=== PATIENT | female | born 1950 | race Caucasian/White ===

== ENCOUNTER 2020-01-21 16:41 | Inpatient (IN) | payer MEDICARE, SELFPAY ==
[2020-01-21] VITALS (7 sets, daily range): BP systolic 132–151; BP diastolic 60–84; PULSE 110–122; RESP 16–20; TEMP 36.3–37.4; O2SAT 95–96; BMI 32.3
--- NOTE | ~2020-01-21 | XR_ITS ---
EXAMINATION: XR chest 2V DATE: 01/21/2020 18:43 INDICATION: Shortness of breath and cough TECHNIQUE: AP and lateral views of the chest are obtained. COMPARISON: 12/30/2018; CT, 11/26/2019 FINDINGS: A left subclavian Port-A-Cath ends with its tip in the distal superior vena cava. There is a stable right perihilar mass. Changes of right upper lobectomy are noted with associated volume loss in the right hemithorax. No acute airspace opacities are identified. The heart size is normal. There is mild thoracic spondylosis. The gallbladder is surgically absent. IMPRESSION: 1. No acute cardiopulmonary abnormality. 2. Changes of right partial pneumonectomy and treatment change in the right perihilar and right lung apex regions. Reviewed, dictated and finalized at location A. IMPRESSION: 1. No acute cardiopulmonary abnormality. 2. Changes of right partial pneumonectomy and treatment change in the right per ihilar and right lung apex regions.
--- NOTE | ~2020-01-21 | CT_ITS ---
EXAMINATION: CTA chest PE protocol DATE: 01/21/2020 19:17 INDICATION: Cough and shortness of breath TECHNIQUE: Computed tomography angiography (CTA) of the chest was performed with 100 mL Omnipaque-350 intravenous contrast timed to evaluate the pulmonary arteries. Coronal maximum intensity projection 3D-reconstructions were created by the technologist. The dose-length product (DLP) was 320.55 mGy-cm. Automated exposure control and iterative reconstruction technique were employed. COMPARISON: 11/26/2019 FINDINGS: The pulmonary arteries are well-opacified. No pulmonary embolism is identified. There are c hanges of left partial pneumonectomy. There are unchanged opacities in the right perihilar region and posterior/upper paramediastinal region. There are patchy airspace opacities of the right lower lobe. The left lung is clear. A left subclavian Port-A-Cath ends with its tip in the distal superior vena cava. The heart size is normal. No pathologically enlarged thoracic lymph nodes are identified. The g allbladder is surgically absent. IMPRESSION: 1. No pulmonary embolism. 2. Patchy opacities of the right lung, likely infectious or inflammatory. 3. Chronic right perihilar and right upper paramediastinal soft tissue density, consistent with treat ment change. Reviewed, dictated and finalized at location A. IMPRESSION: 1. No pulmonary embolism. 2. Patchy opacities of the right lung, likely infectious or inflammatory. 3. Chronic right perihilar and right upper paramediastinal soft tissue density, consistent with treatment change.
--- NOTE | 2020-01-21 16:59 | ED.SOB ---
HPI - SOB/Dyspnea General Chief Complaint: Shortness of Breath/Dyspnea Stated Complaint: WEAKNESS Time Seen by Provider: 01/21/20 16:45 Source: patient and RN notes reviewed Mode of arrival: EMS Limitations: no limitations History of Present Illness HPI Narrative: Pt is a 69 y/o female with a Hx of COPD and lung cancer, who presents to the ED via EMS with c/o SOB starting earlier today. She notes that she has had a worsening cough over the past several weeks. Pt states that her cough was initially productive, but notes that she isn't currently producing any phlegm. She states that she developed SOB and rhinorrhea earlier today. Pt also reports wheezing, but denies any fever, nausea, vomiting, or chest pain. She notes that she hasn't had any recent travel or been around any sick contacts. Pt states that she has previously underwent radiation treatments and chemotherapy for her lung cancer, but notes that she has been advised she has no signs of cancer currently. MD elicited complaint: shortness of breath Pertinent past history: COPD and other (lung cancer) Onset (ago): day(s) (1) Known history of: COPD and other (lung cancer) Associated symptoms: cough, wheezing and other (rhinorrhea) Related Data Home Medications Medication Instructions Recorded Confirmed acetaminophen 500 mg PO Q4H PRN 09/23/19 01/21/20 baclofen 10 mg PO TID 09/23/19 01/21/20 calcium carbonate-vitamin D3 1 tablet PO BID 09/23/19 01/21/20 [Calcium 500 + D (D3)] lidocaine HCl [Aspercreme 4 % TOPICAL PRN PRN 09/23/19 01/21/20 (lidocaine)] light mineral oil-mineral oil 1 drp OPHTHALMIC (EYE) DAILY PRN 09/23/19 01/21/20 [Soothe XP] lisinopril-hydrochlorothiazide 1 tablet PO HS 09/23/19 01/21/20 metformin 500 mg PO BID 09/23/19 01/21/20 omeprazole 40 mg PO DAILY 09/23/19 01/21/20 pravastatin 40 mg PO HS 09/23/19 01/21/20 vitamin B complex 1 cap PO BID 09/23/19 01/21/20 allopurinol 100 mg PO BID 01/21/20 01/21/20 apixaban [Eliquis] 5 mg PO BID 01/21/20 01/21/20 [id number] 1 inh INHALATION DAILY 01/21/20 01/21/20 [Trelegy Ellipta] Allergies Allergy/AdvReac Type Severity Reaction Status Date / Time diclofenac Allergy Severe sob Verified 11/26/19 11:04 Penicillins Allergy Intermediate Itching Verified 11/26/19 11:04 Review of Systems Review of Systems: All systems reviewed & are unremarkable except as noted in HPI and below Constitutional: Constitutional: Denies fever(s) ENT: Reports nasal discharge Cardiovascular: Cardiovascular: Denies chest pain Respiratory: Respiratory: Reports cough, Reports dyspnea and Reports wheezing Gastrointestinal: Gastrointestinal: Denies nausea and Denies vomiting PMFSH Past Medical History Medical History Anemia Angina at rest Arthritis Cancer lung and lymphnodes 2012 and 2014 COPD (chronic obstructive pulmonary disease) uses inhaler, right upper lobe removed lung cancer 2012;lower lobe and lymphnodes 2014 CVA (cerebral vascular accident) 06/2018 TPA administered and rehab-pt states now no residual effect Diabetes last A1C=5.6 DVT (deep venous thrombosis) GERD (gastroesophageal reflux disease) Hemorrhoids History of chemotherapy HTN (hypertension) Hx of adenomatous colonic polyps Hx of pulmonary embolus Hx of radiation therapy Hypercholesterolemia Lung cancer Neutropenia Obesity Peripheral neuropathy Port-A-Cath in place Rectal polyp Shingles Sleep apnea Surgical History Surgical History History of dilatation and curettage History of endoscopy History of esophagogastroduodenoscopy (EGD) History of lobectomy of lung History of removal of Port-a-Cath History of right knee joint replacement 2014 History of total right knee replacement (TKR) Hx of cholecystectomy Hx of colonoscopy Hx of tonsillectomy Hx of total hysterectomy Family History Family History (Updated
--- NOTE | 2020-01-21 17:04 | ECG_ITS ---
Measurements Intervals [place] Rate: 120 P: 44 W[place]: 169 QRS: 3 QRSD: 86 T: 48 QT: 313 QTc: 444 Interpretive Statements SINUS TACHYCARDIA BASELINE ARTIFACT- I, II, III, AVR, AVL, AVF, V1 ABNORMAL ECG Electronically Signed On 01-22-2020 7:08:39 CDT by Simon Olivares D.O.
[2020-01-21] MEDS: LACTATED RINGERS 1,000 ML 999 ML IV CONT ×2 (17:12→19:45)
[2020-01-21] MEDS: methylPREDNISolone SOD SUCC 125 MG VIAL IV PUSH (17:13)
[2020-01-21 17:26] LABS: Alveolar/Arterial O2 Gradient 33.9 mmHg; Carboxyhemoglobin 0.9 % THb (0-2.0); Fractional Inspired Oxygen 21 %; Methemoglobin ABG 0.1 %THb (0-1.5); Oxygen Content ABG 17.1 %vol (16.0-22.0); Oxyhemoglobin 94.2 % THb (90.0-100.0); PCO2 ABG 35.9 mmHg (35.0-45.0); PO2 ABG 72.8 mmHg (80.0-100.0); PO2 FiO2 Ratio Arterial Blood 3.47 %; Reduced Hemoglobin 4.8 %THb (0-5.0); Total Hemoglobin 12.9 g/dL (12.0-18.0)
[2020-01-21 17:27] LABS: Site Drawn RIGHT RADIAL
[2020-01-21 17:28] LABS: Device ROOM AIR; Modified Allen's Test Pass
[2020-01-21] MEDS: ALBUTEROL SULFATE NEB 2.5 MG/0.5 ML INH 5 MG INHALATION (17:28)
[2020-01-21] MEDS: IPRATROPIUM BR 0.02% INH SOLN 0.5 MG/2.5 ML VIAL INHALATION (17:29)
[2020-01-21 17:46] LABS: Basophils Percent Auto 0.3 % (0.2-1.2); Eosinophils Percent Auto 0.1 % (0-4.4); Hematocrit 35.7 % (37.0-47.0); Hemoglobin 11.5 g/dL (12.0-15.0); Immature Granulocyte Absolute 0.07 K/mm3 (0.00-0.031); Immature Granulocyte Percent A 0.5 % (0-0.5); Lymphocytes Absolute Auto 1.62 K/mm3 (0.9-3.2); Lymphocytes Percent Auto 10.6 % (18.3-44.2); Mean Corpuscular HGB Conc 32.2 g/dl (32-36); Mean Corpuscular Hemoglobin 30.3 pg (26-34); Mean Corpuscular Volume 93.9 fl (80-100); Mean Platelet Volume 9.6 fl (7.4-10.4); Monocytes Absolute Auto 1.2 K/mm3 (0.1-0.6); Monocytes Percent Auto 8.1 % (2.6-8.5); Neutrophils Absolute Auto 12.3 K/mm3 (1.3-6.7); Neutrophils Percent Auto 80.4 % (45.5-73.1); Platelet Count Result 207 k/mm3 (150-375); Red Cell Distribution Width 13.5 % (11.5-14.5); White Blood Count 15.2 K/mm3 (4.5-10.0)
[2020-01-21 17:56] LABS: INR 1.1; Prothrombin Time 14.3 Seconds (11.1-14.7)
[2020-01-21 17:57] LABS: Partial Thromboplastin Time 35.4 SECONDS (22.3-36.8)
[2020-01-21 17:58] LABS: Alanine Aminotransferase 18 U/L (4-35); Albumin Level 4.2 g/dL (3.5-5.1); Alkaline Phosphatase 136 U/L (38-126); Aspartate Amino Transferase 25 U/L (14-36); Bilirubin,Total 0.5 mg/dL (0.2-1.3); Blood Urea Nitrogen 14 mg/dL (7-17); Calcium 9.1 mg/dL (8.4-10.2); Carbon Dioxide 30 mmol/L (22-30); Chloride 97 mmol/L (98-107); Estimated Glomerular Filt Rate > 60; Glucose 130 mg/dL (65-105); Magnesium 1.2 mg/dL (1.6-2.3); Potassium 3.9 mmol/L (3.4-5.0); Sodium 136 mmol/L (137-145)
[2020-01-21 17:59] LABS: Lactic Acid Reflex 1.8 mmol/L (0.7-2.1)
[2020-01-21 18:07] LABS: NT Pro B Type Natriuretic Pept 361 PG/ML (5-100)
--- NOTE | 2020-01-21 21:00 | PM.IMHP ---
H&P: HPI History of Present Illness Chief complaint: sepsis, pneumonia Narrative: This is a pleasant 69 year old female with known history of COPD, lung cancer, and on chronic Eliquis therapy secondary to a recent RLE DVT [facility] with a complaint of sudden onset of shortness of breath this afternoon and inability to get up out of her chair. She has had a dry persistent cough over the past several weeks with associated wheezing and today it seemed like her symptoms worsened. Associated symptoms include sore throat. She denies any fever, chills, headache, chest pain, nausea, vomiting, diarrhea, dysuria, hematuria, diarrhea or rectal bleeding. She has been diagnosed with lung cancer twice which is currently in remission. She was supposed to get a follow up ultrasound of her RLE although she has no worsening symptoms of LE pain, redness, or swelling. She does have a history of a previous pulmonary embolism in the past as well. The patient was evaluated in the ER today and found to be septic with a WBC of 15,200, tachycardia, and tachypnea. Chest CTA demonstrated patchy opacities. The patient was treated with IV fluids and IV antibiotics. She states she lives alone and is too weak to go home. Review of Systems Review of Systems: All systems reviewed & are unremarkable except as noted in HPI and below PMFSH Past Medical History Medical History Anemia Angina at rest Arthritis Cancer lung and lymphnodes 2012 and 2014 COPD (chronic obstructive pulmonary disease) uses inhaler, right upper lobe removed lung cancer 2012;lower lobe and lymphnodes 2014 CVA (cerebral vascular accident) 06/2018 TPA administered and rehab-pt states now no residual effect Diabetes last A1C=5.6 DVT (deep venous thrombosis) GERD (gastroesophageal reflux disease) Hemorrhoids History of chemotherapy HTN (hypertension) Hx of adenomatous colonic polyps Hx of pulmonary embolus Hx of radiation therapy Hypercholesterolemia Lung cancer Neutropenia Obesity Peripheral neuropathy Port-A-Cath in place Rectal polyp Shingles Sleep apnea Surgical History Surgical History History of dilatation and curettage History of endoscopy History of esophagogastroduodenoscopy (EGD) History of lobectomy of lung History of removal of Port-a-Cath History of right knee joint replacement 2014 History of total right knee replacement (TKR) Hx of cholecystectomy Hx of colonoscopy Hx of tonsillectomy Hx of total hysterectomy Family History Family History Mother Carcinoma of colon Cerebrovascular accident Father Family history of heart disease in male family member before age 55 Sibling Family history of hypercholesterolemia Hypertension Glaucoma Other Family history of lung cancer Family history of malignant neoplasm of bone Family history of malignant neoplasm of urinary bladder Social History Social History Smoking packs per day: 1 Smoking cigarettes per day: 20.0 Years smoked: 45 Smoking pack-years: 45.00 Smoking status: Former smoker Tobacco type: cigarettes Second hand tobacco smoke exposure: Yes Smoking end date: 11/05/10 Alcohol intake: never Substance use: never Gender identity (if verbalized by the patient): Female Spiritual care concerns: No Agree to blood products: Yes Meds Home Medications and Allergies Home Medications Medication Instructions Recorded Confirmed Type Aspercreme (lidocaine) 4 % TOPICAL PRN PRN 09/23/19 01/21/20 History Soothe XP 1 drp OPHTHALMIC (EYE) DAILY PRN 09/23/19 01/21/20 History acetaminophen 500 mg PO Q4H PRN 09/23/19 01/21/20 History baclofen 10 mg PO TID 09/23/19 01/21/20 History calcium carbonate-vitamin D3 1 tablet PO BID 09/23/19 01/21/20 History
--- NOTE | 2020-01-21 22:11 | PC.NURSE ---
Patient report faxed to 3rd floor med/surg.
[2020-01-21] MEDS: LACTATED RINGERS 1,000 ML 125 ML IV CONT (22:58)
[2020-01-21 23:07] LABS: Glucose Point of Care 200 (65-105)
--- NOTE | 2020-01-21 23:10 | ADMGEN ---
This patient, Zoe Hogue Dia, was admitted to Medical Room 342-01. Patient/family oriented to hospital policies and general routines including ID bracelet, bed and alarms, visiting hours, pain management, procedures, bathroom and other care routines, personal items, smoking policy, room service/diet, and visiting hours. Valuables list has been completed. Information on how to activate the Rapid Response Team has been discussed. Patient/Family are encouraged to report perceived risks to care and to ask questions if they do not understand what they are told or what they should do.
[2020-01-21 23:28] LABS: Alanine Aminotransferase 20 U/L (4-35); Alkaline Phosphatase 120 U/L (38-126); Aspartate Amino Transferase 25 U/L (14-36); Bilirubin,Total 0.4 mg/dL (0.2-1.3); Blood Urea Nitrogen 13 mg/dL (7-17); Calcium 8.9 mg/dL (8.4-10.2); Carbon Dioxide 30 mmol/L (22-30); Chloride 98 mmol/L (98-107); Estimated CRCL calculation 57 ml/min; Estimated Glomerular Filt Rate > 60; Glucose 199 mg/dL (65-105); Potassium 3.4 mmol/L (3.4-5.0); Sodium 136 mmol/L (137-145)
[2020-01-22] VITALS (10 sets, daily range): BP systolic 116–143; BP diastolic 55–69; PULSE 80–122; RESP 14–20; TEMP 36.2–36.3; O2SAT 96–98
[2020-01-22 06:03] LABS: Basophils Percent Auto 0.2 % (0.2-1.2); Hematocrit 31.7 % (37.0-47.0); Hemoglobin 10.3 g/dL (12.0-15.0); Immature Granulocyte Absolute 0.07 K/mm3 (0.00-0.031); Immature Granulocyte Percent A 0.7 % (0-0.5); Lymphocytes Absolute Auto 0.76 K/mm3 (0.9-3.2); Lymphocytes Percent Auto 7.3 % (18.3-44.2); Mean Corpuscular HGB Conc 32.5 g/dl (32-36); Mean Corpuscular Hemoglobin 30.6 pg (26-34); Mean Corpuscular Volume 94.1 fl (80-100); Mean Platelet Volume 9.7 fl (7.4-10.4); Monocytes Absolute Auto 0.1 K/mm3 (0.1-0.6); Monocytes Percent Auto 1.3 % (2.6-8.5); Neutrophils Absolute Auto 9.4 K/mm3 (1.3-6.7); Neutrophils Percent Auto 90.5 % (45.5-73.1); Platelet Count Result 189 k/mm3 (150-375); Red Blood Count 3.37 M/mm3 (4.2-5.4); Red Cell Distribution Width 13.4 % (11.5-14.5); White Blood Count 10.4 K/mm3 (4.5-10.0)
[2020-01-22 06:12] LABS: Blood Urea Nitrogen 15 mg/dL (7-17); Calcium 8.8 mg/dL (8.4-10.2); Carbon Dioxide 30 mmol/L (22-30); Chloride 101 mmol/L (98-107); Estimated CRCL calculation 57 ml/min; Estimated Glomerular Filt Rate > 60; Glucose 157 mg/dL (65-105); Potassium 3.5 mmol/L (3.4-5.0); Sodium 136 mmol/L (137-145)
[2020-01-22] MEDS: GUAIFENESIN/DEXTROMETHORPHAN 10 ML UDC PO ×4 (06:55→20:52)
[2020-01-22] MEDS: LACTATED RINGERS 1,000 ML 125 ML IV CONT (06:55)
--- NOTE | 2020-01-22 07:07 | PHAR ---
The patient's home med of Takblysfdgq-Wgozwkxzo-Futgvfby [Trelegy Ellipta] has been verified.
[2020-01-22] MEDS: predniSONE 40 MG, predniSONE 10 MG 50 MG PO (10:18)
[2020-01-22] MEDS: APIXABAN 5 MG TABLET PO ×2 (10:19→17:03)
[2020-01-22] MEDS: PANTOPRAZOLE 40 MG TABLET PO (10:19)
[2020-01-22] MEDS: VITAMIN B COMPLEX CAPSULE 1 CAP PO ×2 (10:19→17:02)
[2020-01-22] MEDS: allopurinoL 100 MG TABLET PO ×2 (10:20→17:03)
[2020-01-22] MEDS: metFORMIN HCL 500 MG TABLET PO ×2 (10:20→17:02)
[2020-01-22] MEDS: BACLOFEN 10 MG TABLET PO ×3 (10:22→17:05)
--- NOTE | 2020-01-22 13:21 | PM.IMPN ---
Progress Note: A&P Assessment and Plan (1) Community acquired pneumonia: Qualifiers: Laterality: right Lung location: lower lobe of lung Qualified Code(s): J18.9 - Pneumonia, unspecified organism <Luzmacarlos Alvarez, PA-C - Last Filed: 01/22/20 16:30> Code(s): J18.9 - Pneumonia, unspecified organism <Luzmacarlos Cazaresac, PA-C - Last Filed: 01/22/20 16:30> Status: Acute <Luzma Chuck Stimac, PA-C - Last Filed: 01/22/20 16:30> Assessment and Plan: Chest CT revealing patchy opacities of right lung. Cough x1 month with now decreased sputum production. Patient is afebrile. Sputum culture ordered but unable to collect at this point. Blood cultures ordered and pending. WBC stable at 10.4. Pneumonococcal and Legionella urine antigen pending. She was given a one time solumedrol dose in ED. - Continue IV Levaquin - Discontinue IV fluids as patient is tolerating oral intake - Continue guaifenesin/dextromethorphan for cough <Luzma GraceGino Stimac, PA-C - Last Filed: 01/22/20 16:30> (2) Sepsis: Qualifiers: Sepsis acute organ dysfunction status: without acute organ dysfunction <Luzmacarlos Cazaresdelmis, PA-C - Last Filed: 01/22/20 16:30> Code(s): A41.9 - Sepsis, unspecified organism <Luzma Chuck Stimac, PA-C - Last Filed: 01/22/20 16:30> Status: Acute <Luzma Chuck Stimac, PA-C - Last Filed: 01/22/20 16:30> Assessment and Plan: Patient met SIRS criteria at admission with tachycardia and leukocytosis. Suspected source of infection is pneumonia. Blood cultures pending.WBC 15.2 at admission, decreased to 10.4 today likely explained by pneumonia. Patient now on prednisone which could cause further leukocytosis. - Order lactic acid - Continue IV Levaquin - Stop IV fluids as patient has adequate oral intake and becoming mildly edematous. - Continue to monitor vitals and leukocytosis <Luzma J. Sageac, PA-C - Last Filed: 01/22/20 16:30> (3) Tachycardia: Code(s): R00.0 - Tachycardia, unspecified <Luzma J. Stimac, PA-C - Last Filed: 01/22/20 16:30> Status: Acute <Luzma J. Stimac, PA-C - Last Filed: 01/22/20 16:30> Assessment and Plan: Patient presented with tachycardia in 120s. EKG reveals sinus tach. Chest CT revealed no PE. Still with tachycardia in 100s, but likely explained by pneumonia or steroid use. - Continue to monitor heart rate <Luzma J. Stimac, PA-C - Last Filed: 01/22/20 16:30> (4) COPD (chronic obstructive pulmonary disease): Qualifiers: COPD type: unspecified COPD Qualified Code(s): J44.9 - Chronic obstructive pulmonary disease, unspecified <Luzma J. Stimac, PA-C - Last Filed: 01/22/20 16:30> Code(s): J44.9 - Chronic obstructive pulmonary disease, unspecified <Luzma J. Stimac, PA-C - Last Filed: 01/22/20 16:30> Status: Chronic <Luzma J. Stimac, PA-C - Last Filed: 01/22/20 16:30> Assessment and Plan: Currently experiencing less sputum production. O2 96% on room air. RR 16. - Continue home dose Trelegy Ellipta - Continue nebulized albuterol and levalbuterol prn - Continue PO Prednisone <Luzma J. Stimac, PA-C - Last Filed: 01/22/20 16:30> (5) DVT (deep venous thrombosis): Code(s): I82.409 - Acute embolism and thrombosis of unspecified deep veins of unspecified lower extremity <Luzma J. Stimac, PA-C - Last Filed: 01/22/20 16:30> Status: Acute <Luzma J. Stimac, PA-C - Last Filed: 01/22/20 16:30> Assessment and Plan: Patient found to have right lower extremity DVTon 11/26/19 and was started on Xarelto inititally and switched to Eliquis. She was scheduled for repeat venous doppler with PCP Dr. Duff in late December but unable to keep appt. Both LE are mildly edematous and tender to palpation. Patient has been more immobile recently due to SOB. Patient also has history of PE, unclear whe
[2020-01-22] MEDS: hydroCHLOROthiazide 12.5 MG CAPSULE PO (20:37)
[2020-01-22] MEDS: PRAVASTATIN SODIUM 20 MG TABLET 40 MG PO (20:38)
[2020-01-22] MEDS: lisinopriL 20 MG TABLET PO (20:38)
[2020-01-23] VITALS (13 sets, daily range): BP systolic 132–141; BP diastolic 65–73; PULSE 99–124; RESP 16–18; TEMP 36.3–36.7; O2SAT 95–98
[2020-01-23 05:38] LABS: Hematocrit 30.6 % (37.0-47.0); Hemoglobin 9.8 g/dL (12.0-15.0); Mean Corpuscular Hemoglobin 30.5 pg (26-34); Mean Corpuscular Volume 95.3 fl (80-100); Mean Platelet Volume 9.3 fl (7.4-10.4); Platelet Count Result 186 k/mm3 (150-375); Red Blood Count 3.21 M/mm3 (4.2-5.4); Red Cell Distribution Width 13.7 % (11.5-14.5); White Blood Count 11.3 K/mm3 (4.5-10.0)
[2020-01-23 05:49] LABS: Lactic Acid 2.2 mmol/L (0.7-2.1)
[2020-01-23 05:50] LABS: Blood Urea Nitrogen 17 mg/dL (7-17); Calcium 8.7 mg/dL (8.4-10.2); Carbon Dioxide 32 mmol/L (22-30); Chloride 103 mmol/L (98-107); Estimated CRCL calculation 57 ml/min; Estimated Glomerular Filt Rate > 60; Glucose 108 mg/dL (65-105); Magnesium 1.3 mg/dL (1.6-2.3); Potassium 3.6 mmol/L (3.4-5.0); Sodium 140 mmol/L (137-145)
[2020-01-23] MEDS: PANTOPRAZOLE 40 MG TABLET PO (09:05)
[2020-01-23] MEDS: APIXABAN 5 MG TABLET PO ×2 (09:05→16:31)
[2020-01-23] MEDS: allopurinoL 100 MG TABLET PO ×2 (09:05→16:30)
[2020-01-23] MEDS: VITAMIN B COMPLEX CAPSULE 1 CAP PO ×2 (09:05→16:30)
[2020-01-23] MEDS: predniSONE 40 MG, predniSONE 10 MG 50 MG PO (09:05)
[2020-01-23] MEDS: metFORMIN HCL 500 MG TABLET PO ×2 (09:06→16:31)
[2020-01-23] MEDS: MAGNESIUM OXIDE 400 MG TABLET PO (09:07)
[2020-01-23] MEDS: BACLOFEN 10 MG TABLET PO ×3 (09:11→16:39)
[2020-01-23] MEDS: ACETAMINOPHEN 325 MG TABLET 650 MG PO (12:18)
--- NOTE | 2020-01-23 14:25 | PC.NURSE ---
Called Luzma CALDERA, message was left to cell phone, with results of a critical lactic acid.
[2020-01-23 14:42] LABS: Pneumococcal Antigen Urine Not Detected (Not Detected)
--- NOTE | 2020-01-23 14:56 | PM.IMPN ---
Progress Note: A&P Assessment and Plan (1) Sepsis: Qualifiers: Sepsis acute organ dysfunction status: without acute organ dysfunction <Lumza Alvarez WERNER-C - Last Filed: 01/23/20 18:13> Code(s): A41.9 - Sepsis, unspecified organism <Luzma Alvarez PA-C - Last Filed: 01/23/20 18:13> Status: Acute <Luzma Alvarez WERNER-C - Last Filed: 01/23/20 18:13> Assessment and Plan: Patient meets SIRS criteria with tachycardia and leukocytosis. Suspected source of infection is pneumonia. Blood cultures reveal NGTD. WBC 15.2 at admission, 11.3 today. Lactic acid 2.2 this morning and 5.0 on repeat. Patient taking metformin and xopenex which may be contributing to lactic acidosis. - Continue IV Levaquin - Start IV Normal Saline - Continue to monitor lactic acid. Will stop metformin due to lactic acidosis. - Continue to monitor vitals and leukocytosis <Luzma EdwardsGino Sagedelmis PA-C - Last Filed: 01/23/20 18:13> (2) Community acquired pneumonia: Qualifiers: Laterality: right Lung location: lower lobe of lung Qualified Code(s): J18.9 - Pneumonia, unspecified organism <Luzma Alvarez WERNER-C - Last Filed: 01/23/20 18:13> Code(s): J18.9 - Pneumonia, unspecified organism <Luzma Alvarez PA-C - Last Filed: 01/23/20 18:13> Status: Acute <Luzma Alvarez PA-C - Last Filed: 01/23/20 18:13> Assessment and Plan: Chest CT reveals patchy opacities of right lung. Cough x1 month with now decreased sputum production. Patient remains afebrile. Sputum culture pending. Blood cultures NGTD. Pneumonococcal and Legionella urine antigen negative. She was given a one time solumedrol dose in ED. - Continue IV Levaquin - Resume IV fluids - Continue guaifenesin/dextromethorphan for cough <Luzma JGino Alvarez PA-C - Last Filed: 01/23/20 18:13> (3) Tachycardia: Code(s): R00.0 - Tachycardia, unspecified <Luzma Chuck Alvarez, PA-C - Last Filed: 01/23/20 18:13> Status: Acute <Luzma Chuck Alvarez, PA-C - Last Filed: 01/23/20 18:13> Assessment and Plan: Patient presented with tachycardia in 120s. EKG reveals sinus tach. Chest CT revealed no PE. Patient continues to have tachycardia in the 110s, which may be explained by sepsis, prednisone, or xopenex. - Continue to monitor heart rate - Initiate telemetry <Luzma Alvarez, PA-C - Last Filed: 01/23/20 18:13> (4) COPD (chronic obstructive pulmonary disease): Qualifiers: COPD type: unspecified COPD Qualified Code(s): J44.9 - Chronic obstructive pulmonary disease, unspecified <Luzma Alvarez, PA-C - Last Filed: 01/23/20 18:13> Code(s): J44.9 - Chronic obstructive pulmonary disease, unspecified <Luzmacralos Alvarez, PA-C - Last Filed: 01/23/20 18:13> Status: Chronic <Lumzacarlos Alvarez, PA-C - Last Filed: 01/23/20 18:13> Assessment and Plan: Currently experiencing less sputum production. O2 95% on room air. RR 16. She was given a one time solumedrol dose in ED. - Continue home dose Trelegy Ellipta - Continue nebulized levalbuterol prn - Continue PO Prednisone with taper initiated <Luzma Alvarez PA-C - Last Filed: 01/23/20 18:13> (5) Generalized weakness: Code(s): R53.1 - Weakness <Luzma Alvarez, PA-C - Last Filed: 01/23/20 18:13> Status: Acute <Luzma Alvarez, PA-C - Last Filed: 01/23/20 18:13> Assessment and Plan: Patient reports she has been weak lately, especially in her legs. She has been more sedentary. She ambulates with a cane, is typically independent, and lives alone. She has required more assistance with ambulation since admission. - PT and OT to eval and treat with recommendations appreciated. <Luzma Alvarez PA-C - Last Filed: 01/23/20 18:13> (6) Normocytic anemia: Code(s): D64.9 - Anemia, unspecified <Luzma Alvarez,
[2020-01-23] MEDS: GUAIFENESIN/DEXTROMETHORPHAN 10 ML UDC PO (15:15)
[2020-01-23 15:49] LABS: Legionella pneumophila Ag Ur Not Detected (Not Detected)
[2020-01-23] MEDS: SODIUM CHLORIDE 0.9% IV 1,000 ML 75 ML IV CONT (18:05)
[2020-01-23] MEDS: lisinopriL 20 MG TABLET PO (20:26)
[2020-01-23] MEDS: hydroCHLOROthiazide 12.5 MG CAPSULE PO (20:26)
[2020-01-23] MEDS: PRAVASTATIN SODIUM 20 MG TABLET 40 MG PO (20:26)
[2020-01-24] VITALS (14 sets, daily range): BP systolic 102–141; BP diastolic 50–86; PULSE 94–131; RESP 14–18; TEMP 36.4–36.6; O2SAT 95–99
--- NOTE | 2020-01-24 | ECHO_ITS ---
Patient Info Name: Zoe Dia Age: 69 years : 1950 Gender: Female Ht: 66 in Wt: 200 lbs BSA: 2.09 m2 HR: 114 bpm BP: 136 / 86 mmHg Heart Rhythm: Sinus Rhythm Technical Quality: Fair Exam Date: 01/24/2020 1:50 PM Exam Location: [facility] Patient Status: Inpatient Admit Date: 01/22/2020 Staff Ordering Physician: Luzma Alvarez PA-C Press Operator Assistant: Sarai Barker RDCS Attending Provider: Luzma Alvarez PA-C Referring Physician: Kim LARSEN; Exam Type: CA echo dop color flow w con Study Info Complete two-dimensional, color flow and Doppler transthoracic echocardiogram is performed with contrast to opacify the left ventrical and to improve the deliniation of the left ventrical endocarial boarders. Contrast/Agitated Saline Contrast/Ag. Saline: Definity Amount: 2.00 ml Summary 1. Left ventricular systolic function is normal, estimated at 65-70%. 2. LV was not optimally seen until definity contrast was injected. 3. Right ventricular chamber dimension is mildly enlarged. 4. No significant valvular abnormalities. 5. Compared to examination done in this laboratory in 2016 there is no significant difference. Left Ventricle Left ventricular chamber dimension is normal. Left ventricular systolic function is normal, estimated at 65-70%. The left ventricular diastolic function is normal. LV was not optimally seen until definity contrast was injected. Right Ventricle Right ventricular chamber dimension is mildly enlarged. Left Atria Left atrial chamber dimension is normal. Right Atria Right atrial chamber dimension is normal. Aortic Valve The aortic valve is normal. Pulmonic Valve The pulmonic valve is not well visualized. Mitral Valve The mitral valve has normal leaflets. There is trace mitral valve regurgitation. Tricuspid Valve The tricuspid valve leaflets are normal. Pericardium/Pleural The pericardium appears normal. Aorta The aortic root size at the sinus of Valsalva is normal. Left Ventricular Outflow Tract Name Value Normal LVOT 2D LVOT Diameter 2.01 cm LVOT Doppler LVOT Peak Velocity 104.84 cm/s LVOT Peak Gradient 4 mmHg LVOT Mean Gradient 2 mmHg LVOT VTI 15.69 cm LVOT VTI/AV VTI Ratio 0.87 LVOT Stroke Volume 49.84 ml LVOT CO 10.65 l/min LVOT CI 5.10 L/min/m2 Pulmonic Valve Name Value Normal PV Doppler PV Peak Velocity 159.38 cm/s PV Peak Gradient 10 mmHg Mitral Valve Name Value
[2020-01-24 06:15] LABS: Lactic Acid Reflex 2.1 mmol/L (0.7-2.1)
[2020-01-24 06:21] LABS: Alanine Aminotransferase 24 U/L (4-35); Albumin Level 3.5 g/dL (3.5-5.1); Alkaline Phosphatase 110 U/L (38-126); Aspartate Amino Transferase 29 U/L (14-36); Bilirubin,Total 0.2 mg/dL (0.2-1.3); Blood Urea Nitrogen 18 mg/dL (7-17); Calcium 8.7 mg/dL (8.4-10.2); Carbon Dioxide 34 mmol/L (22-30); Chloride 99 mmol/L (98-107); Estimated CRCL calculation 52 ml/min; Estimated Glomerular Filt Rate 55; Glucose 92 mg/dL (65-105); Magnesium 1.3 mg/dL (1.6-2.3); Potassium 3.3 mmol/L (3.4-5.0); Sodium 140 mmol/L (137-145)
[2020-01-24 06:25] LABS: Basophils Percent Auto 0.2 % (0.2-1.2); Hematocrit 31.9 % (37.0-47.0); Hemoglobin 10.1 g/dL (12.0-15.0); Immature Granulocyte Absolute 0.09 K/mm3 (0.00-0.031); Immature Granulocyte Percent A 0.9 % (0-0.5); Lymphocytes Percent Auto 10.1 % (18.3-44.2); Mean Corpuscular HGB Conc 31.7 g/dl (32-36); Mean Corpuscular Hemoglobin 30.2 pg (26-34); Mean Corpuscular Volume 95.5 fl (80-100); Mean Platelet Volume 9.7 fl (7.4-10.4); Monocytes Absolute Auto 0.8 K/mm3 (0.1-0.6); Monocytes Percent Auto 7.6 % (2.6-8.5); Neutrophils Absolute Auto 8.1 K/mm3 (1.3-6.7); Neutrophils Percent Auto 81.2 % (45.5-73.1); Platelet Count Result 218 k/mm3 (150-375); Red Blood Count 3.34 M/mm3 (4.2-5.4); Red Cell Distribution Width 13.7 % (11.5-14.5); White Blood Count 9.9 K/mm3 (4.5-10.0)
[2020-01-24] MEDS: VITAMIN B COMPLEX CAPSULE 1 CAP PO ×2 (08:09→16:13)
[2020-01-24] MEDS: GUAIFENESIN/DEXTROMETHORPHAN 10 ML UDC PO (08:09)
[2020-01-24] MEDS: BACLOFEN 10 MG TABLET PO ×3 (08:09→16:14)
[2020-01-24] MEDS: allopurinoL 100 MG TABLET PO ×2 (08:10→16:14)
[2020-01-24] MEDS: APIXABAN 5 MG TABLET PO ×2 (08:10→16:14)
[2020-01-24] MEDS: PANTOPRAZOLE 40 MG TABLET PO (08:10)
[2020-01-24 08:46] LABS: Reflex Lactic Acid Yes or No Add Lactic
[2020-01-24 09:15] LABS: Lactic Acid 3.1 mmol/L (0.7-2.1)
[2020-01-24] MEDS: MAGNESIUM OXIDE 400 MG TABLET PO ×2 (11:15→16:14)
--- NOTE | 2020-01-24 12:30 | PM.IMPN ---
Progress Note: A&P Assessment and Plan (1) Sepsis: Qualifiers: Sepsis acute organ dysfunction status: without acute organ dysfunction Code(s): A41.9 - Sepsis, unspecified organism Status: Resolved Assessment and Plan: Patient previously met SIRS criteria with tachycardia and leukocytosis, suspected source of infection being pneumonia. Blood cultures reveal NGTD. WBC 15.2 at admission decreased to 9.9 today. - Continue to monitor vitals and leukocytosis - Previously receiving IV fluids and now edematous. Will order one time IV lasix and continue to monitor (2) Community acquired pneumonia: Qualifiers: Laterality: right Lung location: lower lobe of lung Qualified Code(s): J18.9 - Pneumonia, unspecified organism Code(s): J18.9 - Pneumonia, unspecified organism Status: Acute Assessment and Plan: Chest CT reveals patchy opacities of right lung. Cough x1 month with now decreased sputum production. Patient remains afebrile. Sputum culture with WBC, few epithelial cells and mixed bacterial yandel. Blood cultures NGTD. Pneumonococcal and Legionella urine antigen negative. - Continue IV Levaquin. Started on 01/21/20. - Continue guaifenesin/dextromethorphan for cough (3) Lactic acidosis: Code(s): E87.2 - Acidosis Status: Acute Assessment and Plan: Lactic acid wnl at presentation, then increased to 5.0 on 01/22. Today 3.1 and 2.6 on repeat. Patient is not septic and does not meet SIRS criteria. - Hold metformin - Decrease xopenex dose and reduce to Q6H prn - Continue to monitor lactic acid (4) Tachycardia: Code(s): R00.0 - Tachycardia, unspecified Status: Acute Assessment and Plan: Patient presented with tachycardia in 120s. EKG reveals sinus tach. Chest CT revealed no PE. TSH normal. Patient continues to have tachycardia in the 105-110s with episodes in the 140s. HR 160 today when up for PT so was performed while sitting. TSH normal. Patient is asymptomatic. - Continue telemetry - Begin metoprolol 25 mg daily - Order echo (5) COPD (chronic obstructive pulmonary disease): Qualifiers: COPD type: unspecified COPD Qualified Code(s): J44.9 - Chronic obstructive pulmonary disease, unspecified Code(s): J44.9 - Chronic obstructive pulmonary disease, unspecified Status: Chronic Assessment and Plan: Not in acute exacerbation. O2 97% on room air. RR 16. - Continue home dose Trelegy Ellipta - Continue nebulized levalbuterol prn - Prednisone stopped due to tachycardia. No taper due to limited use (6) Generalized weakness: Code(s): R53.1 - Weakness Status: Acute Assessment and Plan: Patient reports she has been weak lately, especially in her legs. She has been more sedentary. She ambulates with a cane, is typically independent, and lives alone. She has required more assistance with ambulation since admission. - PT and OT to eval and treat with recommendations appreciated. - Home health at discharge (7) Normocytic anemia: Code(s): D64.9 - Anemia, unspecified Status: Chronic Assessment and Plan: Currently stable with Hgb 10.1 and Hct 31.9. No signs of active bleeding and patient is asymptomatic. - Continue to monitor H&H and transfuse prn. (8) HTN (hypertension): Qualifiers: Hypertension type: unspecified Qualified Code(s): I10 - Essential (primary) hypertension Code(s): I10 - Essential (primary) hypertension Status: Chronic Assessment and Plan: Blood pressure evaluated today and stable at 136/86. - Continue home dose lisinopril and HCTZ - Continue to monitor BP (9) Diabetes: Code(s): E11.9 - Type 2 diabetes mellitus without complications Status: Acute Assessment and Plan: Last A1c 5.6. Blood sugar evaluated today and stable at 92. - Hold metformin due to lactic acidosis
[2020-01-24 14:01] LABS: Lactic Acid 2.6 mmol/L (0.7-2.1)
[2020-01-24] MEDS: FUROSEMIDE INJ 40 MG/4 ML VIAL IV PUSH (15:11)
[2020-01-24] MEDS: METOPROLOL SUCCINATE EXT REL 25 MG TABCR PO (15:11)
[2020-01-24] MEDS: ACETAMINOPHEN 325 MG TABLET 650 MG PO (16:13)
[2020-01-24 20:00] LABS: Glucose Point of Care 134 (65-105)
[2020-01-24] MEDS: PRAVASTATIN SODIUM 20 MG TABLET 40 MG PO (21:45)
[2020-01-24] MEDS: lisinopriL 20 MG TABLET PO (21:46)
[2020-01-24] MEDS: hydroCHLOROthiazide 12.5 MG CAPSULE PO (21:46)
[2020-01-24 21:52] LABS: Glucose Point of Care 149 (65-105)
[2020-01-25] VITALS: PULSE 84
[2020-01-25 04:00] VITALS: PULSE 84
[2020-01-25 05:12] VITALS: BP 123/67; PULSE 93; RESP 18; TEMP 36.4; O2SAT 95
[2020-01-25 05:37] LABS: Basophils Percent Auto 0.3 % (0.2-1.2); Eosinophils Absolute Auto 0.1 K/mm3 (0-0.3); Eosinophils Percent Auto 1.5 % (0-4.4); Hematocrit 33.5 % (37.0-47.0); Hemoglobin 10.6 g/dL (12.0-15.0); Immature Granulocyte Absolute 0.09 K/mm3 (0.00-0.031); Lymphocytes Absolute Auto 1.04 K/mm3 (0.9-3.2); Lymphocytes Percent Auto 12.1 % (18.3-44.2); Mean Corpuscular HGB Conc 31.6 g/dl (32-36); Mean Corpuscular Hemoglobin 30.2 pg (26-34); Mean Corpuscular Volume 95.4 fl (80-100); Mean Platelet Volume 9.3 fl (7.4-10.4); Monocytes Absolute Auto 0.8 K/mm3 (0.1-0.6); Monocytes Percent Auto 9.4 % (2.6-8.5); Neutrophils Absolute Auto 6.5 K/mm3 (1.3-6.7); Neutrophils Percent Auto 75.7 % (45.5-73.1); Platelet Count Result 229 k/mm3 (150-375); Red Blood Count 3.51 M/mm3 (4.2-5.4); Red Cell Distribution Width 13.9 % (11.5-14.5); White Blood Count 8.6 K/mm3 (4.5-10.0)
[2020-01-25] MEDS: GUAIFENESIN/DEXTROMETHORPHAN 10 ML UDC PO (05:44)
[2020-01-25] MEDS: ACETAMINOPHEN 325 MG TABLET 650 MG PO (05:44)
[2020-01-25 05:48] LABS: Lactic Acid 1.3 mmol/L (0.7-2.1)
[2020-01-25 05:51] LABS: Alanine Aminotransferase 24 U/L (4-35); Albumin Level 3.6 g/dL (3.5-5.1); Alkaline Phosphatase 127 U/L (38-126); Aspartate Amino Transferase 29 U/L (14-36); Bilirubin,Total 0.3 mg/dL (0.2-1.3); Blood Urea Nitrogen 22 mg/dL (7-17); Calcium 8.6 mg/dL (8.4-10.2); Carbon Dioxide 37 mmol/L (22-30); Chloride 96 mmol/L (98-107); Estimated CRCL calculation 44 ml/min; Estimated Glomerular Filt Rate 44; Glucose 105 mg/dL (65-105); Magnesium 1.4 mg/dL (1.6-2.3); Potassium 3.5 mmol/L (3.4-5.0); Sodium 138 mmol/L (137-145)
[2020-01-25] MEDS: BACLOFEN 10 MG TABLET PO ×2 (08:29→12:24)
[2020-01-25] MEDS: allopurinoL 100 MG TABLET PO (08:29)
[2020-01-25] MEDS: VITAMIN B COMPLEX CAPSULE 1 CAP PO (08:29)
[2020-01-25] MEDS: MAGNESIUM OXIDE 400 MG TABLET PO (08:29)
[2020-01-25 08:30] VITALS: PULSE 97
[2020-01-25] MEDS: APIXABAN 5 MG TABLET PO (08:30)
[2020-01-25] MEDS: METOPROLOL SUCCINATE EXT REL 25 MG TABCR PO (08:30)
[2020-01-25] MEDS: PANTOPRAZOLE 40 MG TABLET PO (08:32)
[2020-01-25 08:36] LABS: Glucose Point of Care 108 (65-105)
[2020-01-25 08:40] VITALS: PULSE 93
[2020-01-25 08:41] VITALS: PULSE 98; RESP 18; O2SAT 95
--- NOTE | 2020-01-25 11:56 | PCOTNOTE ---
Attempted to see patient for OT, however, patient just received lunch and is discharging later today and declined to work with OT. Patient not seen for OT.
[2020-01-25 11:59] LABS: Glucose Point of Care 164 (65-105)
--- NOTE | 2020-01-25 13:37 | PM.DS ---
DS: Diagnosis Admitting Diagnosis Admitting Diagnosis: Pneumonia, unspecified organism Discharge Diagnosis (1) Sepsis: Qualifiers: Sepsis acute organ dysfunction status: without acute organ dysfunction Code(s): A41.9 - Sepsis, unspecified organism Status: Resolved (2) Community acquired pneumonia: Qualifiers: Laterality: right Lung location: lower lobe of lung Qualified Code(s): J18.9 - Pneumonia, unspecified organism Code(s): J18.9 - Pneumonia, unspecified organism Status: Acute Assessment and Plan: (3) Lactic acidosis: Code(s): E87.2 - Acidosis Status: Acute Assessment and Plan: (4) Tachycardia: Code(s): R00.0 - Tachycardia, unspecified Status: Acute (5) COPD (chronic obstructive pulmonary disease): Qualifiers: COPD type: unspecified COPD Qualified Code(s): J44.9 - Chronic obstructive pulmonary disease, unspecified Code(s): J44.9 - Chronic obstructive pulmonary disease, unspecified Status: Chronic (6) Generalized weakness: Code(s): R53.1 - Weakness Status: Acute (7) Normocytic anemia: Code(s): D64.9 - Anemia, unspecified Status: Chronic (8) HTN (hypertension): Qualifiers: Hypertension type: unspecified Qualified Code(s): I10 - Essential (primary) hypertension Code(s): I10 - Essential (primary) hypertension Status: Chronic (9) Diabetes: Code(s): E11.9 - Type 2 diabetes mellitus without complications Status: Acute (10) DVT (deep venous thrombosis): Code(s): I82.409 - Acute embolism and thrombosis of unspecified deep veins of unspecified lower extremity Status: Acute (11) Lung cancer: Code(s): C34.90 - Malignant neoplasm of unspecified part of unspecified bronchus or lung Status: Acute (12) Hypomagnesemia: Code(s): E83.42 - Hypomagnesemia Status: Acute DS: Summary Hospital Course Reason for hospitalization: Weakness Hospital Course: Date of service of discharge: 01/25/2020 Date of admission: 01/21/2020 Zoe Dia is a 69 year old female with a PMH significant for COPD, lung cancer, non-insulin dependent diabetes mellitus, PE, recent right LE DVT on Eliquis, and HTN who presented to the ED on 01/21/2020 from her home where she lives alone with sudden onset SOB and persistent weakness. She had a cough for approximately 1 month productive of clear to white sputum. She complained of feeling weaker. She was admitted to the hospitalist service on 01/21/2020. She was septic at admission with tachycardia and leukocytosis with suspected source of infection being pneumonia. Chest CT revealed patchy opacities of right lung. She was treated with IV Levaquin. She remained afebrile and her cough improved. She was given levalbuterol nebulized treatments, guaifenesin/dextromethorphan and encouraged to use Cornet device for supportive care. Her leukocytosis improved. Blood cultures revealed NGTD and sputum cultures showed mixed respiratory yandel. Pneumococcal and Legionella urine antigens were negative. She continued using her home Trelegy Ellipta. She was not SOB, and she remained well oxygenated on room air. She was started on Prednisone which was stopped as it may have been contributing to her tachycardia. She was discharged home with 3 days of oral Levaquin to complete a 7 day course. She was tachycardic in the 120s at presentation and EKG revealed sinus tachycardia. She had a CT to rule out PE given her history which was negative. TSH was normal. On telemetry, her heart rate stayed in the 105-110s, and increased to 140s with activity. She remained asymptomatic. She was started on metoprolol for rate control and an echo was performed with results pending. Heart rate stabilized with metoprolol, which she will continue as an outpatient. She was instructed that if there are any acute findings on her echo, she will be
--- NOTE | 2020-02-03 10:50 | PC.NURSE ---
Echo results shwon to Dr. Watkins and faxed to PCP. Blood cx are negative. Sputum Cx- normal oropharyngeal yandel.
== END 2020-01-25 13:30 | disposition home health service (06) | DRG 871 ==
LOC: ANHED 20:53 → ANH3MED 22:10
PROVIDERS: Physician Assistant; Admitting Provider Family Medicine; Emergency Provider General Practice; PCP Internal Medicine; Visit Provider Internal Medicine
DX: A41.9 Sepsis, unspecified organism (principal); J18.9 Pneumonia, unspecified organism; I10 Essential (primary) hypertension; J44.9 Chronic obstructive pulmonary disease, unspecified; Z85.118 Personal history of other malignant neoplasm of bronchus and lung; Z79.01 Long term (current) use of anticoagulants; M19.90 Unspecified osteoarthritis, unspecified site; Z86.73 Personal history of transient ischemic attack (TIA), and cerebral infarction without residual deficits; Z90.2 Acquired absence of lung [part of]; E11.9 Type 2 diabetes mellitus without complications; Z92.21 Personal history of antineoplastic chemotherapy; Z86.010 Personal history of colon polyps; Z92.3 Personal history of irradiation; G47.30 Sleep apnea, unspecified; Z96.651 Presence of right artificial knee joint; Z90.49 Acquired absence of other specified parts of digestive tract; Z90.710 Acquired absence of both cervix and uterus; Z87.891 Personal history of nicotine dependence; R00.0 Tachycardia, unspecified; D64.9 Anemia, unspecified; Z86.718 Personal history of other venous thrombosis and embolism; E83.42 Hypomagnesemia
CPT/HCPCS: 36415; 36600; 71046; 71275; 80048; 80053; 82375; 82805; 83050; 83605; 83735; 83880; 84443; 85025; 85027; 85610; 85730; 87040; 87070; 87205; 87449; 87804; 87899; 93005; 94640; 96361; 96365; 96366; 96375; 97110; 97116; 97161; 97165; 97530; 97535; 99285; A9270; C8929; G0378; J1940; J1956; J2930; J7030; J7120; J7512; Q9957; Q9967

== ENCOUNTER 2020-03-22 10:54 | Outpatient (CLI) | payer MEDICARE, SELFPAY ==
--- NOTE | ~2020-03-22 | US_ITS ---
EXAMINATION: US venous doppler [facility] DATE: 03/22/2020 11:37 INDICATION: Lower limb swelling TECHNIQUE: Grayscale ultrasound images without and with compression and Doppler ultrasound images of the left lower extremity veins were obtained. COMPARISON: 11/26/2019 FINDINGS: The visualized portions of left common femoral vein, profunda (deep) femoral vein, femoral vein, popl iteal vein, peroneal veins, posterior tibial veins, gastrocnemius vein and greater saphenous vein out flow are patent. Hypoechoic synovitis within a 6.1 x 1.6 x 3.1 cm Haro cyst at the left popliteal fo ssa. IMPRESSION: 1. No deep venous thrombosis in the left lower limb. 2. Moderate-sized Haro's cyst at the left popliteal fossa. Reviewed, dictated and finalized at location A.
== END 2020-03-22 10:55 | disposition home or self-care (01) ==
LOC: ANHIMG 11:00
PROVIDERS: PCP Internal Medicine; Visit Provider Internal Medicine
DX: R60.0 Localized edema (principal); M71.22 Synovial cyst of popliteal space [Baker], left knee
CPT/HCPCS: 93971

== ENCOUNTER 2020-04-04 09:40 | Outpatient (CLI) | payer MEDICARE, SELFPAY ==
--- NOTE | ~2020-04-04 | MR_ITS ---
EXAMINATION: MR knee LT wo con DATE: 04/04/2020 10:58 INDICATION: Left knee pain. TECHNIQUE: Magnetic resonance imaging (MRI) of the left knee was performed without intravenous contra st. Sequences included axial PD-weighted FS FSE, coronal PD-weighted FSE and PD-weighted FS FSE, sagi ttal PD-weighted FSE, and sagittal T2-weighted FS FSE. COMPARISON: Left knee radiographs 11/26/2019 FINDINGS: Medial compartment: There is a radial tear of posterior horn of medial meniscus. There is cartilage surface irregularity of tibial condyle. There is partial-thickness cartilage loss of femoral condyle, deep at the central and medial articular surface. Osteophytes are noted. Lateral compartment: Lateral meniscus is normal. There is cartilage surface irregularity of tibial condyle and femoral con dyle. Marginal osteophytes are noted. Patellofemoral compartment: There is full-thickness cartilage loss involving patellar medial facet and median ridge with mild sub chondral edema-like marrow signal intensity. There is partial-thickness cartilage loss of patellar la teral facet. There is full-thickness cartilage loss of medial trochlea and partial thickness cartilag e loss of lateral trochlea. Osteophytes are noted. Ligaments and tendons: Anterior and posterior cruciate ligaments are normal. There are changes of prior sprains of medial co llateral ligament and fibular collateral ligament characterized by thickening and increased signal in tensity proximally. There is mild patellar tendinopathy. Fluid: There is a small knee joint effusion. There is a moderate-sized ruptured multiloculated Haro's cyst. There is mild prepatellar and superficial infrapatellar bursitis. IMPRESSION: 1. Severe chondrosis of patellofemoral compartment, moderate chondrosis of medial compartment, and mi ld chondrosis of lateral compartment. 2. Tear of medial meniscus. 3. Small knee joint effusion. 4. Moderate-sized ruptured Haro's cyst. Reviewed, dictated and finalized at location A. IMPRESSION: 1. Severe chondrosis of patellofemoral compartment, moderate chondrosis of medi al compartment, and mild chondrosis of lateral compartment. 2. Tear of medial meniscus. 3. Small knee joint effusion. 4. Moderate-sized ruptured Haro's cyst.
== END 2020-04-04 09:41 | disposition home or self-care (01) ==
PROVIDERS: PCP Internal Medicine; Visit Provider Orthopaedic Surgery
DX: M25.562 Pain in left knee (principal); M22.2X2 Patellofemoral disorders, left knee; S83.242A Other tear of medial meniscus, current injury, left knee, initial encounter; M25.462 Effusion, left knee; M71.22 Synovial cyst of popliteal space [Baker], left knee
CPT/HCPCS: 73721

== ENCOUNTER 2020-07-21 10:57 | Outpatient (CLI) | payer MEDICARE, SELFPAY ==
--- NOTE | ~2020-07-21 | CT_ITS ---
EXAMINATION:CT chest wo con DATE: 07/21/2020 12:02 INDICATION: Malignant neoplasm of bronchus and lung. TECHNIQUE: Computed tomography (CT) of the chest was performed without intravenous contrast. Automate d exposure control and iterative reconstruction technique were employed. The dose-length product (DLP ) was 184.77 mGy-cm. COMPARISON: Chest CT 01/21/2020 FINDINGS: There are changes of right upper lobectomy. There are airspace opacities with volume loss, varicose bronchiectasis, and architectural distortion involving paramediastinal right lower lobe and right middle lobe, consistent with radiation fibrosis. There is mild atelectasis bilaterally. There i s mild scarring at left lung apex. A calcified left lung nodule and calcified left hilar lymph nodes are consistent with old granulomatous disease. No pleural effusion. The heart size is normal. There a re coronary artery calcifications. No pericardial effusion. There is a left subclavian port with tip in right atrium. There are changes of cholecystectomy. The adrenal glands are normal. There is mild t horacic spondylosis. IMPRESSION: 1. Stable paramediastinal radiation fibrosis in right lung. Reviewed, dictated and finalized at location A.
== END 2020-07-21 10:58 | disposition home or self-care (01) ==
PROVIDERS: PCP Internal Medicine; Visit Provider Radiology Radiation Oncology
DX: Z85.118 Personal history of other malignant neoplasm of bronchus and lung (principal); R91.8 Other nonspecific abnormal finding of lung field
CPT/HCPCS: 71250

== ENCOUNTER 2020-08-03 06:50 | Outpatient (CLI) | payer MEDICARE, SELFPAY ==
--- NOTE | ~2020-08-03 | CT_ITS ---
EXAMINATION: CT abdomen pelvis w con DATE: 08/03/2020 07:31 INDICATION: Generalized abdominal pain. Abdominal distention. Constipation. Right upper lobe lung can cer TECHNIQUE: Computed tomography (CT) of the abdomen and pelvis was performed with 100 cc Omnipaque 350 intravenous contrast. Automated exposure control and iterative reconstruction technique were employe d. Exam dose: 800.97 mGy-cm total exam DLP. COMPARISON: 03/14/2019 CT abdomen pelvis FINDINGS: There is mild discoid atelectasis or scarring in the lower lung zones. No basilar pulmonary consolidation. No pleural effusion. Normal heart size. No pericardial effusion. Status post cholecystectomy. No bile duct or pancreatic duct dilatation. No hepatic, splenic, pancrea tic or adrenal space-occupying mass lesion. No renal mass lesion or urinary tract calculus or hydroureteronephrosis. The urinary bladder is unrem arkable. Status post hysterectomy. Normal appendix. Diverticulosis of the left colon; no CT evidence of diverticulitis. No bowel obstruction, bowel wall thickening, pneumatosis or intraperitoneal free air. There is atherosclerotic calcification of the abdominal aorta and branches; no abdominal aortic aneur ysm. No intraperitoneal or retroperitoneal or pelvic mass lesion or adenopathy or ascites. Moderately severe degenerative disc disease at L5-S1. No suspicious osteolytic or osteoblastic lesions are noted. IMPRESSION: Status post cholecystectomy Status post hysterectomy Diverticulosis of the colon; no CT evidence of diverticulitis Reviewed, dictated and finalized at Location A. Reviewed, dictated and finalized at location B.
[2020-08-03 07:20] LABS: Estimated Glomerular Filt Rate 44
== END 2020-08-03 06:51 | disposition home or self-care (01) ==
LOC: ANHIMG 06:53
PROVIDERS: PCP Internal Medicine; Visit Provider Internal Medicine
DX: C34.11 Malignant neoplasm of upper lobe, right bronchus or lung (principal); R14.0 Abdominal distension (gaseous); K59.00 Constipation, unspecified; K57.30 Diverticulosis of large intestine without perforation or abscess without bleeding; Z90.49 Acquired absence of other specified parts of digestive tract
CPT/HCPCS: 74177; Q9967

== ENCOUNTER → 2020-08-13 11:09 | Outpatient (CLI) | payer MEDICARE, SELFPAY ==
--- NOTE | ~2020-08-13 | MM_ITS ---
EXAMINATION: MM screening adriana BI w gloria HISTORY: Screening TECHNIQUE: Craniocaudal and mediolateral oblique 3-D tomosynthesis images were obtained and synthetic 2-D images were generated. CAD analysis was submitted and interpreted. COMPARISON: Comparison to multiple prior studies sequentially, with oldest reviewed study dated 07/17. BREAST PARENCHYMAL COMPOSITION: There are scattered areas of fibroglandular density. FINDINGS: There is no evidence of suspicious mass, calcification, or architectural distortion to sugg est malignancy in either breast. There has been no suspicious interval change. IMPRESSION: 1. No mammographic evidence of malignancy. 2. Recommend routine screening mammography in one year. BI-RADS Category 1: Negative Reviewed, dictated and finalized at location A.
== END ==
PROVIDERS: PCP Internal Medicine; Visit Provider Internal Medicine
DX: Z12.31 Encounter for screening mammogram for malignant neoplasm of breast (principal)
CPT/HCPCS: 77063; 77067

== ENCOUNTER 2021-01-24 12:30 | Outpatient (CLI) | payer MEDICARE, SELFPAY ==
--- NOTE | ~2021-01-24 | CT_ITS ---
EXAMINATION: CT diagnostic chest wo con EXAM DATE: 01/24/2021 12:49 INDICATION: Pers hx of other malignant neoplasm of bronchus and lung. TECHNIQUE: Spiral CT of the chest without contrast. Axial, coronal and sagittal images were reviewe d. Coronal maximum intensity pixel images of chest reviewed. The dose-length product (DLP) for this examination was 210.01 mGy-cm. The exposure was tailored according to patient size (auto mA exposur e control), and iterative reconstruction (ASIR) was used as additional dose reduction technique. Comp arison is made to prior examination from 07/21/2020. FINDINGS: There is a left-sided Chemo-Port. Again there is partial right-sided pneumonectomy, with r ight lung medial radiation fibrosis. There is right lower lobe bronchiectasis. Appearance is stable c ompared to prior study. There are no pleural or pericardial effusions. Tracheobronchial tree is pa tent. There is no mediastinal, hilar or axillary lymphadenopathy. There is no pneumothorax. Hea rt normal in size. There is moderate coronary arterial calcification, arterial sclerosis. There ar e cholecystectomy clips. There is thoracic spondylosis without osteoblastic or osteolytic lesions id entified. IMPRESSION: 1. Stable right upper lobectomy, medial radiation fibrosis. 2. Right lower lobe bronchiectasis. Reviewed, dictated and finalized at location A.
== END 2021-01-24 12:31 | disposition home or self-care (01) ==
PROVIDERS: PCP Internal Medicine; Visit Provider Radiology Radiation Oncology
DX: Z85.118 Personal history of other malignant neoplasm of bronchus and lung (principal); Z90.2 Acquired absence of lung [part of]; J47.9 Bronchiectasis, uncomplicated
CPT/HCPCS: 71250

== ENCOUNTER 2021-02-14 10:36 | Outpatient (CLI) | payer MEDICARE, SELFPAY ==
--- NOTE | ~2021-02-14 | MR_ITS ---
EXAMINATION: MR brain/brain stem wo/w con DATE: 02/14/2021 12:16 INDICATION: Lung cancer. TECHNIQUE: Magnetic resonance imaging (MRI) of the brain and brainstem was performed without and with 17 mL MultiHance intravenous contrast. Sequences included sagittal and axial T1-weighted FSE, axial diffusion-weighted FS EPI, axial T2*-weighted GRE, axial T2-weighted FLAIR Propeller, and axial T2-we ighted Propeller. Postcontrast sequences included axial, sagittal, and coronal T1-weighted FSE. Appar ent diffusion coefficient (ADC) maps were created. COMPARISON: Brain MRI 08/06/2019 FINDINGS: There are scattered areas of nonspecific increased T2-weighted signal intensity in the cere bral white matter and adrian. There is no intracranial hemorrhage, acute infarction, or abnormal intrac ranial mass lesion. The ventricles are normal in size. There are small bilateral mastoid effusions. T he paranasal sinuses are clear. The orbits are normal. IMPRESSION: 1. No evidence of metastatic disease. 2. Stable moderate nonspecific cerebral white matter disease and pontine disease, which likely repres ents chronic small vessel ischemic disease and treatment changes. Reviewed, dictated and finalized at location A. IMPRESSION: 1. No evidence of metastatic disease. 2. Stable moderate nonspecific cerebral white matter disease and pontine diseas e, which likely represents chronic small vessel ischemic disease and treatment changes.
[2021-02-14 11:46] LABS: Estimated Glomerular Filt Rate 55
== END 2021-02-14 10:37 | disposition home or self-care (01) ==
PROVIDERS: PCP Internal Medicine; Visit Provider Radiology Radiation Oncology
DX: Z85.118 Personal history of other malignant neoplasm of bronchus and lung (principal); R90.82 White matter disease, unspecified
CPT/HCPCS: 70553; A9577

== ENCOUNTER → 2021-03-21 01:06 | Outpatient (CLI) | payer MEDICARE, SELFPAY ==
[2021-03-21 18:48] LABS: SARS-CoV-2 RNA PCR Negative
== END ==
PROVIDERS: PCP Internal Medicine; Visit Provider Internal Medicine Gastroenterology
DX: Z01.812 Encounter for preprocedural laboratory examination (principal); Z20.822 Contact with and (suspected) exposure to COVID-19
CPT/HCPCS: C9803; U0003; U0005

== ENCOUNTER 2021-03-24 01:41 | Day surgery (SDC) | payer MEDICARE, SELFPAY ==
[2020-12-30 10:28] VITALS: BMI 33.0
[2021-03-15 14:02] VITALS: BMI 31.1
[2021-03-24 08:24] VITALS: BP 143/79; PULSE 95; RESP 18; TEMP 36.4; O2SAT 95; BMI 31.1
[2021-03-24] MEDS: LACTATED RINGERS 1,000 ML 150 ML IV CONT (08:40)
--- NOTE | 2021-03-24 08:52 | WPDGICN ---
GI Consult Note Consult date/time: 03/24/21 08:52 HPI: Reason for visit is colonoscopy. This very pleasant lady seen in consultation request the primary physician. Impression: Screening and surveillance colonoscopy. Patient's history adenomatous colon polyps and a family history colorectal cancer. GERD controlled with medication. HTN. H LD. DM. CVA. Neuropathy. Lung cancer. Asthma. DVT/PE. Recommendation: colonoscopy. Physical examination: General: very pleasant patient in no acute distress. HEENT: Head was normocephalic sclerae is clear mouth without masses neck was supple. Heart: Rate rhythm regular without S3 or S4. Lungs: CTA. Abdomen: Soft with no guarding or rigidity. Bowel sounds were active. Neurologic: Cranial nerves 2 through 12 intact. No focal defects. No clonus. Musculoskeletal system: Revealed no joint tenderness or swelling no muscle atrophy. Extremities: Reveal no significant edema. Skin: Warm and dry with normal turgor. Mental status: intact. Patient is alert and oriented. Review of Systems Review of Systems: All systems reviewed & are unremarkable except as noted in HPI and below [facility] Past Medical History Medical History (Updated 01/13/21 @ 09:20 by Isaiah Hardin DO) Adenomatous colon polyp Arthritis Cancer lung and lymphnodes 2012 and 2014 COPD (chronic obstructive pulmonary disease) uses inhaler, right upper lobe removed lung cancer 2012;lower lobe and lymphnodes 2014 CVA (cerebral vascular accident) 06/2018 TPA administered and rehab-pt states now no residual effect Diabetes last A1C=5.9 (10/2019) DVT (deep venous thrombosis) GERD (gastroesophageal reflux disease) History of chemotherapy HTN (hypertension) Hx of pulmonary embolus Hx of radiation therapy Hypercholesterolemia Lung cancer Neutropenia Obesity Osteoarthritis of left knee Peripheral neuropathy Port-A-Cath in place Shingles Sleep apnea Surgical History Surgical History History of dilatation and curettage History of endoscopy History of esophagogastroduodenoscopy (EGD) History of lobectomy of lung History of removal of Port-a-Cath History of right knee joint replacement 2014 History of total right knee replacement (TKR) Hx of cholecystectomy Hx of colonoscopy Hx of tonsillectomy Hx of total hysterectomy Family History Family History Mother Carcinoma of colon Cerebrovascular accident Father Family history of heart disease in male family member before age 55 Sibling Family history of hypercholesterolemia Hypertension Glaucoma Other Family history of lung cancer Family history of malignant neoplasm of bone Family history of malignant neoplasm of urinary bladder Social History Social History Smoking packs per day: 1 Smoking cigarettes per day: 20.0 Years smoked: 45 Smoking pack-years: 45.00 Smoking status: Current some day smoker Tobacco type: cigarettes Second hand tobacco smoke exposure: Yes Smoking end date: 11/05/10 Alcohol intake: never Substance use: never Substance use type: does not use Living arrangements: alone Gender identity (if verbalized by the patient): Female Spiritual care concerns: No Agree to blood products: Yes Meds Home Medications and Allergies Home Medications Medication Instructions Recorded Confirmed Type Aspercreme (lidocaine HCl) 4 % TOPICAL PRN PRN 09/23/19 03/15/21 History Soothe XP 1 drp OPHTHALMIC (EYE) DAILY PRN 09/23/19 03/15/21 History acetaminophen 500 mg PO Q4H PRN 09/23/19 03/15/21 History baclofen 10 mg PO TID 09/23/19 03/15/21 History calcium carbonate-vitamin D3 1 tablet PO BID 09/23/19 03/15/21 History [Calcium 500 + D (D3)] lisinopril-hydrochlorothiazide 1 tablet PO HS 09/23/19 03/15/21 History met
[2021-03-24 08:54] LABS: Glucose Point of Care 102 mg/dl (65-105)
--- NOTE | 2021-03-24 09:34 | WPDANESEPPF ---
Anes - Initial Pre Proc Eval Procedure: Operation Date: 03/24/21 09:30 Proposed Procedures p Screening Colonoscopy - Isaiah Hardin DO Date/Time: 03/24/21 09:34 Surgeon: Isaiah Hardin DO Pre Op Diagnosis: neoplasm screening Patient Data Age: 70 Gender: F Height: 5 ft 6 in Weight: 87.4 kg Last Vital Signs Temp 97.5 F L 03/24/21 08:24 Pulse 95 03/24/21 08:24 Resp 18 03/24/21 08:24 BP 143/79 H 03/24/21 08:24 Pulse Ox 95 03/24/21 08:24 Allergies Allergy/AdvReac Type Severity Reaction Status Date / Time diclofenac Allergy Severe sob Verified 03/24/21 08:22 Penicillins Allergy Intermediate Itching Verified 03/24/21 08:22 Home Medications Medication Instructions Recorded Confirmed Type Aspercreme (lidocaine HCl) 4 % TOPICAL PRN PRN 09/23/19 03/15/21 History Soothe XP 1 drp OPHTHALMIC (EYE) DAILY PRN 09/23/19 03/15/21 History acetaminophen 500 mg PO Q4H PRN 09/23/19 03/15/21 History baclofen 10 mg PO TID 09/23/19 03/15/21 History calcium carbonate-vitamin D3 1 tablet PO BID 09/23/19 03/15/21 History [Calcium 500 + D (D3)] lisinopril-hydrochlorothiazide 1 tablet PO HS 09/23/19 03/15/21 History metformin 500 mg PO BID 09/23/19 03/15/21 History omeprazole 40 mg PO DAILY 09/23/19 03/15/21 History pravastatin 40 mg PO HS 09/23/19 03/15/21 History vitamin B complex 1 cap PO BID 09/23/19 03/15/21 History Eliquis 5 mg PO BID 01/21/20 03/15/21 History Trelegy Ellipta 1 inh INHALATION DAILY 01/21/20 03/15/21 History allopurinol 100 mg PO BID 01/21/20 03/15/21 History montelukast 10 mg PO HS 03/15/21 03/15/21 History Laboratory Tests 03/24/21 08:34 POC Capillary Glucose 102 mg/dl mg/dl (65-105) Patient hx anesthesia problems: none Family hx anesthesia problems: none [facility] Past Medical History Medical History (Updated 01/13/21 @ 09:20 by Isaiah Hardin DO) Adenomatous colon polyp Arthritis Cancer lung and lymphnodes 2012 and 2014 COPD (chronic obstructive pulmonary disease) uses inhaler, right upper lobe removed lung cancer 2012;lower lobe and lymphnodes 2014 CVA (cerebral vascular accident) 06/2018 TPA administered and rehab-pt states now no residual effect Diabetes last A1C=5.9 (10/2019) DVT (deep venous thrombosis) GERD (gastroesophageal reflux disease) History of chemotherapy HTN (hypertension) Hx of pulmonary embolus Hx of radiation therapy Hypercholesterolemia Lung cancer Neutropenia Obesity Osteoarthritis of left knee Peripheral neuropathy Port-A-Cath in place Shingles Sleep apnea Surgical History Surgical History History of dilatation and curettage History of endoscopy History of esophagogastroduodenoscopy (EGD) History of lobectomy of lung History of removal of Port-a-Cath History of right knee joint replacement 2014 History of total right knee replacement (TKR) Hx of cholecystectomy Hx of colonoscopy Hx of tonsillectomy Hx of total hysterectomy Family History Family History Mother Carcinoma of colon Cerebrovascular accident Father Family history of heart disease in male family member before age 55 Sibling Family history of hypercholesterolemia Hypertension Glaucoma Other Family history of lung cancer Family history of malignant neoplasm of bone Family history of malignant neoplasm of urinary bladder Social History Social History Smoking packs per day: 1 Smoking cigarettes per day: 20.0 Years smoked: 45 Smoking pack-years: 45.00 Smoking status: Current some day smoker Tobacco type: cigarettes Second hand tobacco smoke exposure: Yes Smoking end date: 11/05/10 Alcohol intake: never Substance use: never Substance use type: does not use Living arrangements: alone Gender identity (if verbalized by the patient): Female Spiritual care concerns: N
[2021-03-24 11:01] VITALS: BP 116/62; PULSE 88; RESP 22; O2SAT 98
[2021-03-24 11:11] VITALS: BP 129/71; PULSE 89; RESP 22; O2SAT 100
--- NOTE | 2021-03-24 11:18 | SUR.PHASEII ---
DR SO STATED FOR PT TO RESUME ELIQUIS TOMORROW 03/25/21, PT ALSO INSTRUCTED.
[2021-03-24 11:21] VITALS: BP 138/71; PULSE 90; RESP 20; O2SAT 99
== END 2021-03-24 11:45 | disposition home or self-care (01) ==
PROVIDERS: PCP Internal Medicine; Visit Provider Internal Medicine Gastroenterology
PROC: 0DJD8ZZ Inspection of Lower Intestinal Tract, Via Natural or Artificial Opening Endoscopic (ICD-10-PCS; CPT 45378; principal; 2021-03-24 09:30)
DX: Z12.11 Encounter for screening for malignant neoplasm of colon (principal); D12.2 Benign neoplasm of ascending colon; K64.8 Other hemorrhoids; Z80.0 Family history of malignant neoplasm of digestive organs; K21.9 Gastro-esophageal reflux disease without esophagitis; I10 Essential (primary) hypertension; E78.5 Hyperlipidemia, unspecified; E11.40 Type 2 diabetes mellitus with diabetic neuropathy, unspecified; J44.9 Chronic obstructive pulmonary disease, unspecified; G47.30 Sleep apnea, unspecified; Z86.73 Personal history of transient ischemic attack (TIA), and cerebral infarction without residual deficits; Z85.118 Personal history of other malignant neoplasm of bronchus and lung; Z86.711 Personal history of pulmonary embolism; Z86.718 Personal history of other venous thrombosis and embolism; Z92.3 Personal history of irradiation; Z92.21 Personal history of antineoplastic chemotherapy; Z90.2 Acquired absence of lung [part of]; Z87.891 Personal history of nicotine dependence; Z79.01 Long term (current) use of anticoagulants; Z79.51 Long term (current) use of inhaled steroids; Z79.84 Long term (current) use of oral hypoglycemic drugs
CPT/HCPCS: 45380; 82948; 88305; J2704; J7120

== ENCOUNTER 2021-05-31 09:00 | Outpatient (RCR) | payer MEDICARE, SELFPAY ==
--- NOTE | 2021-04-28 09:34 | PTOPEVAL ---
PHYSICAL THERAPY EVALUATION AND PLAN OF CARE - Thank you for referring Zoe Dia to [facility] for the diagnosis of unsteady gait. ? She is scheduled to be seen for therapy? 2x/week for 5 weeks. Please review, sign, date and return this plan of care DAYA. I agree with and certify that the following plan of care is medically necessary. Referring Physician Date Attending Provider: Jacky Duff MD *PT Outpatient Evaluation Document 04/28/21 08:25 VARUN (Rec: 04/28/21 09:34 VARUN [id number]) Past Medical History Source of Past Medical History Recalled from Previous Visit, Confirmed with Patient/Family Neurological History Hx Cerebrovascular Accident (CVA) Yes: no residual weakness Hx Transient Ischemic Attacks (TIA) Yes Hx Other Neurological Disorders Yes: neuropathy B LE's Cardiovascular History Hx Deep Vein Thrombosis Yes: B LE's and to trunk Hx Hypercholesterolemia Yes: meds Hx Hypertension Yes: meds Respiratory History Hx Asthma Yes Hx Chronic Obstructive Pulmonary Disease Yes: uses inhaler (COPD) Hx Pneumonia Yes Hx Pulmonary Embolism Yes Hx Sleep Apnea Yes: do not use CPAP Hx Other Respiratory Disorders Yes: right upper lobe removed lung cancer 2012;lower lobe and lymph nodes 2014 Gastrointestinal History Hx Cholecystectomy Yes: 06/2019 Hx Gastroesophageal Reflux Disease Yes Hx Hemorrhoids Yes Hx Polyps Yes: colon polyps x4 03/2019; Genitourinary History Hx Genitourinary Disorders No Significant History Musculoskeletal History Hx Arthritis Yes: fingers, feet Hx Crutches or Walker Use Yes Query Text:If Yes, Enter Crutches, Walker, or Both in the Comment Hx Joint Replacement Yes: right knee partial replacement 2014 Hx Other Musculoskeletal Disorders Yes: L knee Haro's cyst rupture and pain, limited walking-- January 2021 Hematological History Hx Anemia Yes: while receiving chemo and radiation 2014 for lung cancer Hx Blood Transfusions Yes: while receiving chemo and radiation 2014 for lung cancer Endocrine History Hx Diabetes Yes: po meds HEENT History Hx Tonsillectomy Yes Hx Sinus Problems Yes: seasonal allergies Integumentary History Hx Shingles Yes Reproductive History Hx Hysterectomy Yes Psychosocial History Hx Psychiatric Disorders No S
--- NOTE | 2021-05-31 09:44 | PTOPEVAL ---
PHYSICAL THERAPY DISCHARGE 05-31-21 Refer to the clinical summary below for her status today, compared to the initial evaluation. The goals were partially achieved; Discharge PT services. Thank you for referring Zoe Dia to [facility].? Please review, sign, date and return this discharge DAYA. I agree with and certify that the following plan of care is medically necessary. Referring Physician Date Attending Provider: Jacky Duff MD Document 05/31/21 09:00 VARUN (Rec: 05/31/21 09:44 VARUN [id number]) Assessment Status Discharge Subjective Information Zoe reports: feels like her Query Text:As Reported By Patient/ balance is better- walking Family some in the house without the cane, using the cane most of the time; have the wheeled walker out, but do not use it; doing leg exercises at home 20 of each; problems with the standing on one leg--hurts back of the legs; have not had any falls; is not able to get up from her shower seat-- seat is not able to raise up due to corrosion of the push pins and the grab bar is not near the seat; stands for entire shower, using hand held shower head; has not been doing her laundry due to it being in the basement- family is doing for her, because she does not want to go down the stairs; Discussed with pt---obtain taller shower seat, have someone try to pry the push pins loose and get a permanently mounted grab bar, not a suction one; with the laundry situation, discussed her doing the laundry at the laundromat--she drives and is able to carry a basket of clothes- or put on her wheeled walker seat to transport. Pain Assessment Timing of Pain Assessment Timing of Pain Assessment Assessment Self Report Self Report Pain Level 0 Pain Score Pain Score 0: Self Report Additional Pain Score Comments with walking, reports pain in knees L > R;
== END 2021-07-13 09:57 | disposition home or self-care (01) ==
LOC: ANHPT 09:00
PROVIDERS: PCP Internal Medicine; Visit Provider Internal Medicine
DX: R26.89 Other abnormalities of gait and mobility (principal)
CPT/HCPCS: 97110; 97140; 97161

== ENCOUNTER → 2021-08-15 11:08 | Outpatient (CLI) | payer MEDICARE, SELFPAY ==
--- NOTE | ~2021-08-15 | DEXA_ITS ---
Bone Density Report Name: Zoe Dia Age: 71 Sex: Female Ethnicity: White Date of : 1950 Indication: postmenopausal; screening for osteoporosis; height loss; history of glucocorticoids; hysterectomy; Referring Provider: VADIM ANN Study: Bone densitometry was performed. Exam Date: August 15, 2021 Accession number: [id number] Bone Density: Region BMD T-score Z-score Classification AP Spine (L1-L4) 0.981 -0.6 1.7 Normal Femoral Neck (Left) 0.739 -1.0 1.0 Normal Total Hip (Left) 1.035 0.8 2.4 Normal Femoral Neck (Right) 0.697 -1.4 0.6 Osteopenia Total Hip (Right) 0.984 0.3 2.0 Normal Total Hip Mean 1.010 0.6 2.2 Normal World Health Organization criteria for BMD impression classify patients as: Normal (T-score at or above -1.0), Osteopenia (T-score between -1.0 and -2.5), or Osteoporosis (T-score at or below -2.5). 10-year Fracture Risk(1): Major Osteoporotic Fracture 15% Hip Fracture 2.6% Reported Risk Factors: [place] (), Neck BMD=0.697, BMI=32.8, glucocorticoids (1) FRAX(R) Version 3.08. Fracture probability calculated for an untreated patient. Fracture probability may be lower if the patient has received treatment. Previous Exams: Region Exam Age BMD T-score BMD Change BMD Change Date g/cm2 vs Baseline vs Previous AP Spine(L1-L4) 08/15/2021 71 0.981 -0.6 -0.037 -0.001 09/27/2016 66 0.981 -0.6 -0.036 -0.012 07/17/2013 63 0.993 -0.5 -0.024 -0.015 03/16/2010 59 1.008 -0.4 -0.010 -0.010 11/08/2005 55 1.017 -0.3 Total Hip(Left) 08/15/2021 71 1.035 0.8 -0.130 -0.047 09/27/2016 66 1.083 1.2 -0.083* 0.017 07/17/2013 63 1.066 1.0 -0.100 0.058 03/16/2010 59 1.008 0.5 -0.157* -0.157* 11/08/2005 55 1.165 1.8 Total Hip(Right) 08/15/2021 71 0.984 0.3 -0.069 -0.017 09/27/2016 66 1.002 0.5 -0.051 0.029* 07/17/2013 63 0.973 0.3 -0.081 0.011 03/16/2010 59 0.962 0.2 -0.091* -0.091* 11/08/2005 55 1.053 0.9 *Denotes significance at 95% confidence level, LSC for AP Spine = 0.022 g/cm2, LSC for Total Hip = 0.027 g/cm2 Clinical Information Provided by Patient: Has taken Glucocorticoids Has used the following medications: Vitamin D, Calcium Has the following medical conditions: Hysterectomy
--- NOTE | ~2021-08-15 | MM_ITS ---
EXAMINATION: MM screening [facility] BI w [place] HISTORY: Screening TECHNIQUE: Craniocaudal and mediolateral oblique 3-D tomosynthesis images were obtained and synthetic 2-D images were generated. CAD analysis was submitted and interpreted. COMPARISON: Comparison to multiple prior studies sequentially, with oldest reviewed study dated 02/02. BREAST PARENCHYMAL COMPOSITION: Breast composed of scattered areas of fibroglandular density. FINDINGS: There is no evidence of suspicious mass, calcification, or architectural distortion to sugg est malignancy in either breast. There has been no suspicious interval change. IMPRESSION: 1. No mammographic evidence of malignancy. 2. Recommend routine screening mammography in one year. BI-RADS Category 1: Negative Reviewed, dictated and finalized at location A.
== END ==
PROVIDERS: PCP Internal Medicine; Visit Provider Obstetrics & Gynecology Gynecology
DX: Z12.31 Encounter for screening mammogram for malignant neoplasm of breast (principal); Z78.0 Asymptomatic menopausal state; M85.851 Other specified disorders of bone density and structure, right thigh
CPT/HCPCS: 77063; 77067; 77080

== ENCOUNTER → 2021-08-17 09:47 | Outpatient (CLI) | payer MEDICARE, SELFPAY ==
--- NOTE | ~2021-08-17 | CT_ITS ---
EXAMINATION: CT abdomen pelvis wo con DATE: 08/17/2021 10:12 INDICATION: Abdominal pain TECHNIQUE: Computed tomography (CT) of the abdomen and pelvis was performed without intravenous contr ast. Automated exposure control and iterative reconstruction technique were employed. Exam dose: 939 .08 mGy-cm total exam DLP. COMPARISON: 08/03/2020 CT abdomen pelvis FINDINGS: There is atelectasis, consolidation and/or pulmonary mass lesion in the posteromedial right lower lobe, with rightward shift of heart and mediastinum; CT thorax examination with IV contrast ma terial is recommended. There is mild chronic discoid scarring in the anterior left lower lobe. Normal heart size. Coronary artery calcifications. No pericardial or pleural effusion. Small sliding hiatal hernia. Status post cholecystectomy. No hepatic, splenic, pancreatic, adrenal or renal space-occupying mass l esion is detected. No bile duct or pancreatic duct dilatation. No urinary tract calculus or hydroureteronephrosis. There is extensive calcification of the abdominal aorta but no abdominal aortic aneurysm. Prominent calcification of the iliac arteries as well as viet e femoral artery calcification. No intraperitoneal or retroperitoneal or pelvic mass lesion or adenopathy or ascites. Normal appendix. Diverticulosis of the sigmoid colon and to a minimal extent the splenic flexure; no CT evidence of diverticulitis. No bowel obstruction, bowel wall thickening, pneumatosis or intraperit darnell free air is detected. The urinary bladder is unremarkable. Degenerative spurring of the lower thoracic spine. Moderately severe degenerative disc disease at L5- S1. No suspicious osteolytic or osteoblastic lesions. IMPRESSION: Prominent focal atelectasis, consolidation or and/or pulmonary mass lesion in the hr operations advisor ior medial right lower lobe with rightward shift of heart mediastinum; CT thorax with IV contrast mat erial is recommended Small sliding hiatal hernia Status post cholecystectomy Diverticulosis of left colon; no CT evidence of diverticulitis Reviewed, dictated and finalized at Location A. Reviewed, dictated and finalized at location B. IMPRESSION: Prominent focal atelectasis, consolidation or and/or pulmonary mas s lesion in the posterior medial right lower lobe with rightward shift of heart mediastinum; CT thorax with IV contrast material is recommended Small sliding hiatal hernia Status post cholecystectomy Diverticulosis of left colon; no CT evidence of diverticulitis
== END ==
PROVIDERS: PCP Internal Medicine; Visit Provider Internal Medicine
DX: R10.9 Unspecified abdominal pain (principal); K44.9 Diaphragmatic hernia without obstruction or gangrene; Z90.49 Acquired absence of other specified parts of digestive tract; K57.30 Diverticulosis of large intestine without perforation or abscess without bleeding
CPT/HCPCS: 74176

== ENCOUNTER → 2021-08-23 10:45 | Outpatient (CLI) | payer MEDICARE, SELFPAY ==
--- NOTE | ~2021-08-23 | CT_ITS ---
EXAMINATION: CT diagnostic chest w con DATE: 08/23/2021 11:23 INDICATION: Possible right lower lobe mass, history of right upper lobectomy TECHNIQUE: Transaxial computed tomographic images of the chest were obtained after the administration of 75 cc of Omnipaque 350 intravenous contrast. The dose-length product (DLP) was 250.50 mGy-cm. Ite rative reconstruction was used. COMPARISON: 08/17/2021, 01/24/2021 FINDINGS: There are changes of right upper lobectomy. There are unchanged opacities in the right harrison hilar region and posterior/upper paramediastinal region. There is chronic volume loss of the right sanna ng. Areas of bronchiectasis are noted posterior medially in the right lung. No suspicious interval ch wes is identified. No pathologically enlarged thoracic lymph nodes are identified. The heart size is normal. A left internal jugular Port-A-Cath ends with its tip in the distal superior vena cava. The gallbladder is surgically absent. IMPRESSION: 1. Stable treatment changes for right lung cancer without significant interval change. Reviewed, dictated and finalized at location A.
[2021-08-23 11:08] LABS: Estimated Glomerular Filt Rate 44
== END ==
PROVIDERS: PCP Internal Medicine; Visit Provider Internal Medicine
DX: R91.8 Other nonspecific abnormal finding of lung field (principal)
CPT/HCPCS: 71260; Q9967

== ENCOUNTER 2022-02-07 10:00 | Outpatient (RCR) | payer MEDICARE, SELFPAY ==
--- NOTE | 2022-01-18 15:30 | PTOPEVAL ---
PHYSICAL THERAPY INITIAL EVALUATION. Thank you for referring Zoe Dia to [facility].? The patient is scheduled to be seen for therapy? 2x/week for 4 weeks. Please review, sign, date and return this plan of care DAYA. I agree with and certify that the following plan of care is medically necessary. Referring Physician Date Attending Provider: Johnny Power MD *PT Outpatient Evaluation Start: 01/18/22 Evaluation Information Diagnosis Left knee osteoarthritis Onset 3+ months Additional Evaluation Detail Pt ambulates into the clinic with a rollator this date. Subjective Information Pt states she has pain in both Query Text:As Reported By Patient/ knees but mainly the left. Family She states she was given a cortisone injection but it did not work and now she has to come here. Pt states most of her pain is in the back of the knee. Pt states she fell December 16 onto her right side. Pt had 2 people try to help her get up and were unable, they called EMS to help her up. Pt reports 3 falls in the last 6 months. Pt states often she will get a sharp pain in her knee that causes her knee to buckle. Home Setting Home Type House,Multiple Levels Environmental Barriers Stairs, Greater than 4 Living Situation Alone Caregiver Responsibilities Comment 4 stairs to enter the home with railing. Pt has a walker in the car, on the front porch , and one in the house. So she never has to transport it. Mobility Assistive Devices (Used Last 3 Walker, Wheeled Months) Pain Assessment Left Knee(s) Reported Pain Level 0 Pain Description Sharp,Soreness Pain Frequency Acute,Intermittent Lowest Pain Intensity 0 Greatest Pain Intensity 5 Pain Aggravating Factors Stair Climbing,Walking,Weight Lower Extremity Range of Motion Knee Range of Motion Right Knee Flexion Range of Motion - Active 104 Knee Flexion Range of Motion - Passive 115 Knee Extension Range of Motion - Active -3 Left Knee Flexion Range of Motion - Active 110 Knee Flexion Range of Motion - Passive 110 Knee Extension Range of Motion - Active 0 Lower Extremity Muscle Strength Testing Gross Lower Extremity Strength Functional strength:
--- NOTE | 2022-02-09 10:08 | PCPTNOTE ---
Patient called & cancelled scheduled appointment this date due to falling on 02/08/2022 and is having difficulty walking due to soreness.
--- NOTE | 2022-02-13 11:46 | PCPTNOTE ---
Patient called & cancelled scheduled re-evaluation for 02/14/22 this date due to a fall and currently being admitted in the hospital.
--- NOTE | 2022-02-17 11:33 | PCPTNOTE ---
Attending Provider: Johnny Power MD Patient:Zoe Hogue Dia Date of :1950 Patient has been discharged from the hospital and is now admitted to rehab after a fall at home. She will need new order to continue therapy if outpatient therapy is still the best option for her upon discharge. Patient will be discharged from skilled physical therapy services at this time. Thank you for referring this patient to [facility]. Please review, sign, date and return this discharge summary DAYA. I have been updated about the patient's current status and I agree with discharge from the above service at this time. Referring Physician Date
== END 2022-02-17 15:10 | disposition home or self-care (01) ==
LOC: ANHPT 10:00
PROVIDERS: PCP Internal Medicine; Referring Provider Orthopaedic Surgery; Visit Provider Orthopaedic Surgery
DX: M25.562 Pain in left knee (principal)
CPT/HCPCS: 97110; 97112; 97140; 97161; 97530

== ENCOUNTER 2022-02-10 20:58 | Inpatient (IN) | payer MEDICARE, SELFPAY ==
[2022-02-10] VITALS (14 sets, daily range): BP systolic 124–153; BP diastolic 59–90; PULSE 121–130; RESP 18–31; TEMP 37.2; O2SAT 94–96
--- NOTE | ~2022-02-10 | CT_ITS ---
EXAMINATION: CTA chest PE protocol EXAM DATE: 02/10/2022 23:52 INDICATION: SOB, tachycardia. TECHNIQUE: Spiral CTA of the chest (pulmonary arteries) was performed with 100 cc Omnipaque 350 intr avenous contrast injection. Images were acquired during the pulmonary arterial phase. Coronal maxi mum intensity projection 3D-reconstructions were created by the technologist on dedicated workstation . Axial, coronal and sagittal reformatted images were reviewed. The dose-length product (DLP) for t his examination was 506.63 mGy-cm. The exposure was tailored according to patient size (auto mA exp osure control), and iterative reconstruction (ASIR) was used as additional dose reduction technique. Comparison is made to prior examination from 08/23/2021. FINDINGS: There are no pulmonary emboli in the 1st through 3rd order (central and interlobar) pulmon rolly arteries. Some loss of attenuation in the segmental pulmonary arteries due to respiratory motion , but no intraluminal filling defects suspected. No thoracic aortic dissection. Again there is right lung volume loss, right suprahilar treated lung cancer, fibrosis. Mild overall i nterval increase in volume of this suspected (soft tissue lateral to the right pulmonary artery on im age 76 has measurably increased compared to similar position on prior study). Right 6 rib resection p osteriorly, some right apical suture material. Also interval development of patchy right basilar airspace disease, appearance most consistent with a cute pneumonia. Unilaterality would favor bacterial etiology. There are no pleural or pericardial effusions. Tracheobronchial tree is patent. There is no media stinal, hilar or axillary lymphadenopathy. There is no pneumothorax. Heart normal in size. Ther e is mild coronary arterial calcification, arterial sclerosis. Hepatic steatosis. Cholecystectomy cl ips. There is small sliding gastroesophageal hiatal hernia. There is thoracic spondylosis without os teoblastic or osteolytic lesions identified. IMPRESSION: 1. Limited segmental evaluation, but no pulmonary emboli are suspected. 2. Development of patchy right basilar airspace disease most likely pneumonia. 3. Mild increase in volume of treated right suprahilar, perihilar malignancy. Could be increase in a mount of radiation related scarring but some amount of progression of malignancy not excludable. Reviewed, dictated and finalized at location A. IMPRESSION: 1. Limited segmental evaluation, but no pulmonary emboli are suspected. 2. Development of patchy right basilar airspace disease most likely pneumonia. 3. Mild increase in volume of treated right suprahilar, perihilar malignancy. Could be increase in amount of radiation related scarring but some amount of pr ogression of malignancy not excludable.
--- NOTE | ~2022-02-10 | CT_ITS ---
EXAMINATION: CT cervical spine wo con DATE: 02/10/2022 21:59 INDICATION: Multiple falls. Posterior neck pain. TECHNIQUE: Computed tomography (CT) of the cervical spine was performed without intravenous contrast. Automated exposure control and iterative reconstruction technique were employed. Exam dose: 352.10 mGy-cm total exam DLP. COMPARISON: None FINDINGS: There is reversal of cervical curvature. C1 and C2 are normally aligned and the odontoid process intact. No fracture or dislocation, locked facet or prevertebral soft tissue swelling. Fusion of the transverse elements significant C2-3 on the left. Severe degenerative change of the apo physeal joints throughout the remainder of the cervical spine. Prominent uncovertebral joint spurring bilaterally at C5-6. Minimal anterolisthesis at C4-5. Moderately severe degenerative disc disease at C5-6 and C6-7.. Prominent right apical scarring. IMPRESSION: Reversal of cervical curvature Cervical spondylosis No fracture, dislocation or locked facet Reviewed, dictated and finalized at Location A. Reviewed, dictated and finalized at location A.
--- NOTE | ~2022-02-10 | XR_ITS ---
XR shoulder LT min 2V DATE: 02/10/2022 21:46 INDICATION: Fall 3 days ago in shower. Generalized left shoulder pain TECHNIQUE: Single AP view of left shoulder COMPARISON: None FINDINGS: Diffuse osteopenia. There is evidence of rotator cuff atrophy, the greater tuberosity approximating the undersurface of t he acromion process. No apparent fracture or dislocation of the left shoulder on this limited single view. IMPRESSION: Osteopenia Rotator cuff atrophy Limited examination; no apparent fracture or dislocation Reviewed, dictated and finalized at location A.
--- NOTE | ~2022-02-10 | XR_ITS ---
EXAMINATION: XR knee RT 3V EXAM DATE: 02/11/2022 01:28 INDICATION: Knee pain. TECHNIQUE: Three projections of the right knee. Comparison is made to prior examination from 8. FINDINGS: There is medial tibiofemoral compartment knee replacement hardware in expected position, st able appearance compared to prior study. Evidence of mild to moderate patellofemoral, mild lateral ti biofemoral compartment primary osteoarthritis. No joint effusion. There are no acute fractures identi fied. IMPRESSION: Intact right knee medial arthroplasty hardware. Osteoarthritis other compartments. Reviewed, dictated and finalized at location A. IMPRESSION: Intact right knee medial arthroplasty hardware. Osteoarthritis othe r compartments.
--- NOTE | ~2022-02-10 | XR_ITS ---
EXAMINATION: XR hip BI 2V w AP pelvis EXAM DATE: 02/11/2022 01:28 INDICATION: Fall, bilateral hip pain. TECHNIQUE: Each hip imaged independently (separate right and also left hip) 'frog leg' and frontal p rojections for interpretation. Frontal projection pelvis. Comparison is made to prior examination fr om 02/10/2022 (pelvic x-ray). FINDINGS: No radiographic evidence of hip avascular necrosis. Contrast within the bladder from intr avenous injection. There is moderate primary osteoarthritis. There are no acute fractures or dislocat ions identified. There is no subcutaneous gas. The soft tissue is unremarkable. There are no radi opaque foreign bodies. IMPRESSION: No acute osseous findings. Moderate osteoarthritis. Reviewed, dictated and finalized at location A.
--- NOTE | ~2022-02-10 | CT_ITS ---
EXAMINATION: CT lumbar spine wo [facility] EXAM DATE: 02/11/2022 01:33 INDICATION: Back pain. Fall. TECHNIQUE: Spiral CT lumbar spine was performed without contrast. Axial, coronal and sagittal images of the lumbar spine were reviewed. The dose-length product (DLP) for this examination was 957.57 mGy- cm. The exposure was tailored according to patient size (auto mA exposure control), and iterative re construction (ASIR) was used as additional dose reduction technique. There is no prior study for gladys curtis. FINDINGS: Imaged portions of sacrum unremarkable. There is no evidence of acute lumbar fracture. There is no d isc space widening or traumatic vertebral body subluxation suspected. Paraspinal soft tissue is unre markable. Vertebral body and disc heights are well-maintained. There is moderate to severe L5-S1 d isc disease and left neural foraminal stenosis, moderate right neural foraminal stenosis. Otherwise m ild to moderate lumbar disc disease. Moderate bilateral L4-5 neural foraminal stenosis. Mild to moder ate central canal stenosis L3-S1. A detailed level by level evaluation of spondylosis can be added a s addendum if requested. IMPRESSION: 1. Moderate to severe L5-S1 spondylosis. 2. No acute fracture. Reviewed, dictated and finalized at location A.
--- NOTE | ~2022-02-10 | XR_ITS ---
EXAMINATION: XR barium swallow modified EXAM DATE: 02/11/2022 13:05 INDICATION: Persistent cough TECHNIQUE: Modified barium esophagram was performed by speech pathologist with radiologist Dr. Andrew Michaels present to administered fluoroscopy. Speech pathologist administered barium in varying consis tencies as per speech pathologist documentation. This was recorded on tape. There was total fluorosc opic time of 1.8 minutes The DAP for this procedure was 1.1 Gycm2. A total of 3 images sent to PACS from the exam. FINDINGS: Oral stage: Adequate function. Pharyngeal phase: Reduced laryngeal elevation, abduction, pharyngeal squeeze. Vallecula residual.. Laryngeal penetration: Demonstrated, deep. Aspiration: None. Laryngeal sensitivity: Present. IMPRESSION: Oral feedings recommended with limitations as per speech pathologist. Please refer to marcela yoo pathologist findings and specific feeding recommendations. Reviewed, dictated and finalized at location A. IMPRESSION: Oral feedings recommended with limitations as per speech pathologis t. Please refer to speech pathologist findings and specific feeding recommend ations.
--- NOTE | ~2022-02-10 | CT_ITS ---
EXAMINATION: CT brain wo con DATE: 02/10/2022 21:59 INDICATION: Confusion, diminished ability to ambulate, multiple falls. Posterior neck pain. Weakness. TECHNIQUE: Computed tomography (CT) of the head was performed without intravenous contrast. The mA wa s adjusted according to patient size. Iterative reconstruction technique was employed. Exam dose: 60 5.33 mGy-cm total exam DLP. COMPARISON: 02/14/2021 MRI brain/brainstem FINDINGS: Prominent bilateral carotid siphon internal carotid artery calcifications. There is promine nt nonspecific diminished attenuation of the cerebral white matter, likely due to chronic small vesse l ischemic changes. Moderate cerebral and cerebellar volume loss. No intracranial mass lesion or hemorrhage or cerebrovascular accident, midline shift or mass effect e ffect is detected. No fracture or bone destruction of the cranial vault. Occasional bilateral opacified mastoid air cells. Mastoids and paranasal sinuses are otherwise unrema rkable. IMPRESSION: Cerebral atherosclerosis and chronic small vessel ischemic changes of cerebral white mat ter Moderate central and cortical cerebral atrophy, cerebellar atrophy No acute intracranial finding Reviewed, dictated and finalized at Location A. Reviewed, dictated and finalized at location A. IMPRESSION: Cerebral atherosclerosis and chronic small vessel ischemic changes of cerebral white matter Moderate central and cortical cerebral atrophy, cerebellar atrophy No acute intracranial finding
--- NOTE | ~2022-02-10 | XR_ITS ---
XR chest 1V DATE: 02/10/2022 21:46 INDICATION: Weakness TECHNIQUE: AP chest COMPARISON: 08/23/2021 CT chest FINDINGS: There is volume loss of the right lung with rightward shift of heart and mediastinum includ ing rightward angulation of the trachea. There is increased density along the right paratracheal and hilar areas, which may be due to any combination of postradiation fibrosis, infiltrate and recurrent and/or residual malignancy. There is infiltrate and/or atelectasis in the right lung base. The lungs otherwise appear essentially clear. There is elevation right diaphragm. Heart size appears within normal range. No pulmonary vascular congestion or pleural effusion or pneumothorax. Status post cholecystectomy IMPRESSION: Probable postoperative radiation change at right hilar and paratracheal areas, with chron ic right lung volume loss Patchy infiltrate or atelectasis at right lung base, which may be due to pneumonia or aspiration pneu monitis Reviewed, dictated and finalized at location A. IMPRESSION: Probable postoperative radiation change at right hilar and paratrac heal areas, with chronic right lung volume loss Patchy infiltrate or atelectasis at right lung base, which may be due to pneumo lakeisha or aspiration pneumonitis
--- NOTE | ~2022-02-10 | XR_ITS ---
EXAMINATION: XR chest 1V portable DATE: 02/13/2022 08:20 INDICATION: Pneumonia. TECHNIQUE: A single frontal view of the chest was obtained. COMPARISON: Chest single view 02/10/2022, chest CT 02/10/2022 FINDINGS: There is volume loss of right lung status post right upper lobectomy. 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 There are airspace o pacities in right lower lung zone, consistent with pneumonia. No pleural effusion or pneumothorax. Th e heart size is normal. Surgical clips in the right upper quadrant are likely from cholecystectomy. IMPRESSION: 1. Stable airspace opacities in right lower lung zone, consistent with pneumonia. 2. Stable airspace opacities with volume loss in right perihilar region and right lung apex, consiste nt with radiation fibrosis. Reviewed, dictated and finalized at location A. IMPRESSION: 1. Stable airspace opacities in right lower lung zone, consistent with pneumoni a. 2. Stable airspace opacities with volume loss in right perihilar region and rig ht lung apex, consistent with radiation fibrosis.
--- NOTE | ~2022-02-10 | XR_ITS ---
XR pelvis 1-2V DATE: 02/10/2022 21:46 INDICATION: Fall. Pelvic injury TECHNIQUE: AP pelvis COMPARISON: None FINDINGS: There is mild levoscoliosis of the lumbar spine. The pubic symphysis and sacroiliac joints are intact. No pelvic fracture or bone destruction. No hip fracture or dislocation. Hip joint spaces are symmetri c and relatively preserved. Abdominal aortic and common iliac arterial calcifications. IMPRESSION: No pelvic fracture Reviewed, dictated and finalized at location A. IMPRESSION: No pelvic fracture
--- NOTE | 2022-02-10 21:23 | ECG_ITS ---
Measurements Intervals [place] Rate: 126 P: 51 MT: 174 QRS: 25 QRSD: 77 T: 58 QT: 305 QTc: 443 Interpretive Statements SINUS TACHYCARDIA LOW QRS VOLTAGE IN PRECORDIAL LEADS [QRS DEFLECTION < 1.0 mV IN CHEST LEADS] NONSPECIFIC T-WAVE ABNORMALITY ABNORMAL RHYTHM ECG COMPARED TO ECG 01/21/2020 16:45:35 T-WAVE ABNORMALITY NOW PRESENT Electronically Signed On 02-11-2022 6:46:53 CDT by Radha Hogan M.D.
--- NOTE | 2022-02-10 21:28 | ED.FALL ---
HPI - Fall General Chief Complaint: Fall <Natalia Le MD - Last Filed: 02/10/22 21:39> Stated Complaint: HIP PAIN, WEAKNESS <Natalia Le MD - Last Filed: 02/10/22 21:39> Time Seen by Provider: 02/10/22 21:04 <Natalia Le MD - Last Filed: 02/10/22 21:39> Source: patient and RN notes reviewed <Natalia Le MD - Last Filed: 02/10/22 21:39> Mode of arrival: ambulatory <Natalia Le MD - Last Filed: 02/10/22 21:39> Limitations: no limitations <Natalia Le MD - Last Filed: 02/10/22 21:39> History of Present Illness HPI Narrative: Patient is 71 years old white female presented to the ED, complaining of general weakness, hip pain bilaterally, headache, neck pain after a fall 4 days ago in the shower, patient had COVID Bystolic dose 1 day prior to that. Patient lives alone, not been eating well over the last few days, cannot walk, cannot get out of bed because of the weakness. History of diabetes, hypertension, hyperlipidemia, COPD, stroke without residual deficit, pulmonary embolism and deep vein thrombosis on Eliquis.. Patient does not smoke or drink or uses drugs. Patient been coughing over the last 2 months. Patient uses a cane and walker for mobility. Patient is DNR. Currently patient denying any fever, chills, nausea or vomiting, also denies any chest pain, shortness of breath or abdominal pain. Patient came to the ED by ambulance with her nephew. <Natalia Le MD - Last Filed: 02/10/22 21:39> Related Data Home Medications: Home Medications Medication Instructions Recorded Confirmed Aspercreme (lidocaine HCl) 4 % TOPICAL PRN PRN 09/23/19 12/27/21 acetaminophen 500 mg PO Q4H PRN 09/23/19 12/27/21 baclofen 10 mg PO TID 09/23/19 12/27/21 calcium carbonate-vitamin D3 1 tablet PO BID 09/23/19 12/27/21 [Calcium 500 + D (D3)] lisinopril-hydrochlorothiazide 1 tablet PO HS 09/23/19 12/27/21 metformin 500 mg PO BID 09/23/19 12/27/21 omeprazole 40 mg PO DAILY 09/23/19 12/27/21 pravastatin 40 mg PO HS 09/23/19 12/27/21 vitamin B complex 1 cap PO BID 09/23/19 12/27/21 Eliquis 5 mg PO BID 01/21/20 12/27/21 Trelegy Ellipta 1 inh INHALATION DAILY 01/21/20 12/27/21 allopurinol 100 mg PO BID 01/21/20 12/27/21 montelukast 10 mg PO HS 03/15/21 12/27/21 carboxymethylcellulose sodium 1 drp EACH EYE 4-6XD PRN 12/27/21 12/27/21 <Natalia Le MD - Last Filed: 02/10/22 21:39> Allergies/Adverse Reactions: Allergies Allergy/AdvReac Type Severity Reaction Status Date / Time diclofenac Allergy Severe sob Verified 12/27/21 09:06 Penicillins Allergy Intermediate Itching Verified 12/27/21 09:06 <Natalia Le MD - Last Filed: 02/10/22 21:39> Review of Systems Review of Systems: CONSTITUTIONAL: Denies fever, chills, or sweats. EYES: Denies visual changes, redness, or discharge. ENT: Denies rhinorrhea, congestion, sore throat, or otalgia. CARDIOVASCULAR: Denies chest pain, palpitations, or edema. RESPIRATORY: Denies cough or dyspnea. GASTROINTESTINAL: Denies abdominal pain, nausea, vomiting, or diarrhea. GENITOURINARY: Denies dysuria or hematuria. SKIN: Denies rash or itching. MUSCULOSKELETAL: Denies back pain, joint pain, or myalgia. NEUROLOGIC: Denies headache, numbness, or weakness. PSYCHIATRIC: Denies anxiety or depression. <Natalia Le MD - Last Filed: 02/10/22 21:39> [facility] Past Medical History Medical History: Medical History (Updated 02/11/22 @ 01:49 by Abbe Rayo MD) Adenomatous colon polyp Arthritis Cancer lung and lymphnodes 2012 and 2014 COPD (chronic obstructive pulmonary disease) uses inhaler, right upper lobe removed lung cancer 2012;lower lobe and lymphnodes 2014 CVA (cerebral vascular accident) 06/2018 TPA administered and rehab-pt states now no residual effect Diabetes last A1C=5.9 (10/2019) DVT (deep venous thrombosis) GERD (gastroesophageal reflux disease) History of chemotherapy HTN (hypertension) Hx of pulmonary embolus Hx of
[2022-02-10 21:48] LABS: Alanine Aminotransferase 26 U/L (4-35); Albumin Level 4.3 g/dL (3.5-5.1); Alkaline Phosphatase 136 U/L (38-126); Anion Gap 8 mmol/L (8-16); Aspartate Amino Transferase 39 U/L (14-36); Bilirubin,Total 0.5 mg/dL (0.2-1.3); Blood Urea Nitrogen 22 mg/dL (7-17); Carbon Dioxide 28 mmol/L (22-30); Chloride 102 mmol/L (98-107); Creatine Kinase 168 U/L (30-135); Estimated CRCL calculation 46 ml/min; Estimated Glomerular Filt Rate 49; Glucose 132 mg/dL (65-110); Potassium 3.6 mmol/L (3.4-5.0); Sodium 138 mmol/L (137-145)
[2022-02-10 21:51] LABS: Basophils Absolute Auto 0.1 K/mm3 (0.0-0.1); Basophils Percent Auto 0.4 % (0.2-1.2); Hematocrit 37.8 % (37.0-47.0); Hemoglobin 12.1 g/dL (12.0-15.0); Immature Granulocyte Absolute 0.07 K/mm3 (0.00-0.031); Immature Granulocyte Percent A 0.5 % (0-0.5); Lymphocytes Absolute Auto 0.88 K/mm3 (0.9-3.2); Lymphocytes Percent Auto 5.8 % (18.3-44.2); Mean Corpuscular Hemoglobin 32.3 pg (26-34); Mean Corpuscular Volume 100.8 fl (80-100); Mean Platelet Volume 9.5 fl (7.4-10.4); Monocytes Absolute Auto 1.2 K/mm3 (0.1-0.6); Monocytes Percent Auto 7.8 % (2.6-8.5); Neutrophils Percent Auto 85.5 % (45.5-73.1); Platelet Count Result 220 k/mm3 (150-375); Red Blood Count 3.75 M/mm3 (4.2-5.4); Red Cell Distribution Width 13.6 % (11.5-14.5); White Blood Count 15.2 K/mm3 (4.5-10.0)
[2022-02-10 21:53] LABS: INR 1.3; Prothrombin Time 15.5 Seconds (11.1-14.7)
[2022-02-10 21:54] LABS: Partial Thromboplastin Time 48.2 SECONDS (22.3-36.8)
[2022-02-10 22:00] LABS: Troponin I < 0.012 ng/mL (0.000-0.034)
[2022-02-10] MEDS: SODIUM CHLORIDE 0.9% IV 1,000 ML 999 ML IV CONT (22:13)
[2022-02-10 22:19] LABS: Thyroid Stimulating Hormone 0.696 uIU/mL (0.465-4.680)
[2022-02-10 22:37] LABS: Add Urine Microscopic? YES; Appearance Urine Cloudy (Clear); Bacteria Urine Trace /hpf; Bilirubin Urine Negative (Negative); Blood Urine Negative (Negative); Color Urine Amber (Yellow); Glucose Urine UA Negative (Negative); Ketones Urine 1+ mg/dL (Negative); Leukocyte Esterase Ur Negative LEU/UL (Negative); Mucus Urine Rare /lpf; Nitrate Urine Negative (Negative); Protein Urine Negative (Negative); Specific Grav Ur 1.023 (1.001-1.035); Squamous Epithelial Cell Urine Occasional /hpf (Few); Urobilinogen Urine Negative mg/dL (<2.0)
[2022-02-11] VITALS (38 sets, daily range): BP systolic 117–163; BP diastolic 59–92; PULSE 69–130; RESP 16–34; TEMP 36.6–37.4; O2SAT 90–99; BMI 31.8; BMI 32.3
--- NOTE | 2022-02-11 00:06 | ECHO_ITS ---
Patient Info Name: Zoe Dia Age: 71 years : 1950 Gender: Female Ht: 66 in Wt: 196 lbs BSA: 2.06 m2 HR: 114 bpm BP: 123 / 67 mmHg Technical Quality: Fair Exam Date: 02/11/2022 9:17 AM Exam Location: [facility] Pulmonary Exam Room: [facility] Patient Status: Inpatient Admit Date: 02/11/2022 Staff Ordering Physician: Marysol Navarro M.A., MD [employer] Network Architect: Stacie Leung RDCS Attending Provider: Marysol Navarro M.A., MD Referring Physician: Kervin QUINN; Exam Type: CA echo doppler color flow Study Info Indications - syncope Complete two-dimensional, color flow and Doppler transthoracic echocardiogram is performed. Summary 1. Complete two-dimensional, color flow and Doppler transthoracic echocardiogram is performed. 2. Left ventricular chamber dimension is normal. 3. Left ventricular systolic function is normal, estimated at >70%. 4. There is no increased left ventricular wall thickness. 5. Left ventricular septal wall motion is normal. 6. The left ventricular diastolic function is grade I diastolic dysfunction. 7. Right ventricular chamber dimension is normal. 8. Right ventricular systolic function is normal. 9. Mild pulmonary hypertension, estimated pulmonary arterial systolic pressure is 42 mmHg. Left Ventricle Left ventricular chamber dimension is normal. Left ventricular systolic function is normal, estimated at >70%. There is no increased left ventricular wall thickness. Left ventricular septal wall motion is normal. The left ventricular diastolic function is grade I diastolic dysfunction. Right Ventricle Right ventricular chamber dimension is normal. Right ventricular systolic function is normal. Left Atria Left atrial chamber dimension is normal. Right Atria Right atrial chamber dimension is normal. Aortic Valve The aortic valve is trileaflet. There is no aortic valve sclerosis. There is no aortic valve stenosis. There is no aortic valve regurgitation. Pulmonic Valve The pulmonic valve is normal. There is no pulmonic valve stenosis. There is no pulmonic regurgitation. Mitral Valve The mitral valve has normal leaflets. There is no mitral valve stenosis. There is no mitral valve regurgitation. Tricuspid Valve The tricuspid valve leaflets are normal. There is no significant tricuspid valve stenosis. There is no tricuspid valve regurgitation. Mild pulmonary hypertension, estimated pulmonary arterial systolic pressure is 42 mmHg. Pericardium/Pleural The pericardium appears normal. There is no pericardial effusion. Inferior Vena Cava Normal inferior vena cava with >50% collapse upon inspiration consistent with normal right atrial pressure, 10 mmHg. Aorta The aortic root size at the sinus of Valsalva is normal. The prox ascending aorta size is normal. Left Ventricular Outflow Tract Name Value Normal LVOT 2D LVOT Diameter 2.0 cm LVOT Doppler LVOT Peak Gradient 7 mmHg LVOT Mean Gradient 4 mmHg LVOT VTI 22 cm LVOT VTI/AV VTI Ratio
--- NOTE | 2022-02-11 00:18 | PM.IMHP ---
H&P: HPI History of Present Illness Date/Time: 02/11/22 00:18 Chief Complaint: 71 years old female with past medical history of hypertension hyperlipidemia COPD stroke pulmonary fully vaccinated against COVID time 4 embolism on Eliquis presented to the hospital with generalized weakness started few days ago worsening gradually patient had a fall 4 days ago in the bathroom she did not hit her head start complains of bilateral hip pain headache generalized weakness chills difficulty with walking back pain at the ER patient was found to have pneumonia leukocytosis tachycardia plan to admit CT scan of the chest is pending to rule out PE CT scan of lumbar spine pending as patient is complaining of back pain x-ray of pelvis and hip is pending x-ray of the right knee is pending Review of Systems Review of Systems: All systems reviewed & are unremarkable except as noted in HPI and below PMFSH Past Medical History Medical History (Updated 02/11/22 @ 00:23 by Marysol Navarro MD) Adenomatous colon polyp Arthritis Cancer lung and lymphnodes 2012 and 2014 COPD (chronic obstructive pulmonary disease) uses inhaler, right upper lobe removed lung cancer 2012;lower lobe and lymphnodes 2014 CVA (cerebral vascular accident) 06/2018 TPA administered and rehab-pt states now no residual effect Diabetes last A1C=5.9 (10/2019) DVT (deep venous thrombosis) GERD (gastroesophageal reflux disease) History of chemotherapy HTN (hypertension) Hx of pulmonary embolus Hx of radiation therapy Hypercholesterolemia Lung cancer Neutropenia Obesity Osteoarthritis of left knee Peripheral neuropathy Port-A-Cath in place Shingles Sleep apnea Surgical History Surgical History History of dilatation and curettage History of endoscopy History of esophagogastroduodenoscopy (EGD) History of lobectomy of lung History of removal of Port-a-Cath History of right knee joint replacement 2014 History of total right knee replacement (TKR) Hx of cholecystectomy Hx of colonoscopy Hx of tonsillectomy Hx of total hysterectomy Family History Family History Mother Carcinoma of colon Cerebrovascular accident Father Family history of heart disease in male family member before age 55 Sibling Family history of hypercholesterolemia Hypertension Glaucoma Other Family history of lung cancer Family history of malignant neoplasm of bone Family history of malignant neoplasm of urinary bladder Social History Social History Smoking packs per day: 1 Smoking cigarettes per day: 20.0 Years smoked: 45 Smoking pack-years: 45.00 Smoking status: Current some day smoker Tobacco type: cigarettes Second hand tobacco smoke exposure: Yes Smoking end date: 11/05/10 Alcohol intake: never Substance use: never Substance use type: does not use Gender identity (if verbalized by the patient): Female Spiritual care concerns: No Agree to blood products: Yes Meds Home Medications and Allergies Home Medications Medication Instructions Recorded Confirmed Type Aspercreme (lidocaine HCl) 4 % TOPICAL PRN PRN 09/23/19 12/27/21 History acetaminophen 500 mg PO Q4H PRN 09/23/19 12/27/21 History baclofen 10 mg PO TID 09/23/19 12/27/21 History calcium carbonate-vitamin D3 1 tablet PO BID 09/23/19 12/27/21 History [Calcium 500 + D (D3)] lisinopril-hydrochlorothiazide 1 tablet PO HS 09/23/19 12/27/21 History metformin 500 mg PO BID 09/23/19 12/27/21 History omeprazole 40 mg PO DAILY 09/23/19 12/27/21 History pravastatin 40 mg PO HS 09/23/19 12/27/21 History vitamin B complex 1 cap PO BID 09/23/19 12/27/21 History Eliquis 5 mg PO BID 01/21/20 12/27/21 History Trelegy Ellipta 1 inh INHALATION DAILY 01/21/20 12/27/21 History allopurinol 100 mg PO BID 01/21/20 12/27/21 History
[2022-02-11 01:54] LABS: Magnesium 1.5 mg/dL (1.6-2.3); Uric Acid 6.4 mg/dL (2.5-7.5)
[2022-02-11 02:07] LABS: NT Pro B Type Natriuretic Pept 244 pg/mL (5-100); Troponin I < 0.012 ng/mL (0.000-0.034)
[2022-02-11 03:10] LABS: SARS-CoV-2 RNA PCR Negative
--- NOTE | 2022-02-11 04:45 | ADMGEN ---
This patient, Zoe Hogue Dia, was admitted to IMU Room 206-02. Patient/family oriented to hospital policies and general routines including ID bracelet, bed and alarms, visiting hours, pain management, procedures, bathroom and other care routines, personal items, smoking policy, room service/diet, and visiting hours. Information on how to activate the Rapid Response Team has been discussed. Patient/Family are encouraged to report perceived risks to care and to ask questions if they do not understand what they are told or what they should do.
[2022-02-11] MEDS: metroNIDAZOLE 500 MG/ISO 100ML 500 MG/100 ML BAG 100 MG IVPB ×3 (04:48→21:42)
[2022-02-11] MEDS: SODIUM CHLORIDE 0.9% IV 1,000 ML 70 ML IV CONT (04:48)
[2022-02-11] MEDS: HYDROcodone/acetaminophen (*CRX) 5-325 MG TABLET 1 TAB PO ×2 (04:54→19:25)
[2022-02-11 05:21] LABS: Basophils Percent Auto 0.2 % (0.2-1.2); Eosinophils Percent Auto 0.1 % (0-4.4); Hematocrit 33.7 % (37.0-47.0); Hemoglobin 11.2 g/dL (12.0-15.0); Immature Granulocyte Absolute 0.14 K/mm3 (0.00-0.031); Immature Granulocyte Percent A 0.9 % (0-0.5); Lymphocytes Absolute Auto 0.85 K/mm3 (0.9-3.2); Lymphocytes Percent Auto 5.7 % (18.3-44.2); Mean Corpuscular HGB Conc 33.2 g/dl (32-36); Mean Corpuscular Hemoglobin 32.6 pg (26-34); Mean Platelet Volume 9.6 fl (7.4-10.4); Monocytes Absolute Auto 1.1 K/mm3 (0.1-0.6); Monocytes Percent Auto 7.2 % (2.6-8.5); Neutrophils Absolute Auto 12.7 K/mm3 (1.3-6.7); Neutrophils Percent Auto 85.9 % (45.5-73.1); Platelet Count Result 202 k/mm3 (150-375); Red Blood Count 3.44 M/mm3 (4.2-5.4); Red Cell Distribution Width 13.4 % (11.5-14.5); White Blood Count 14.8 K/mm3 (4.5-10.0)
[2022-02-11] MEDS: MAGNESIUM SULF 2 GM/WATER 50ML 2 GM/50 ML BAG IVPB (05:25)
[2022-02-11 05:29] LABS: Alanine Aminotransferase 23 U/L (4-35); Albumin Level 3.8 g/dL (3.5-5.1); Alkaline Phosphatase 117 U/L (38-126); Anion Gap 7 mmol/L (8-16); Aspartate Amino Transferase 36 U/L (14-36); Bilirubin,Total 0.5 mg/dL (0.2-1.3); Blood Urea Nitrogen 19 mg/dL (7-17); Calcium 8.2 mg/dL (8.4-10.2); Carbon Dioxide 28 mmol/L (22-30); Chloride 100 mmol/L (98-107); Estimated CRCL calculation 50 ml/min; Estimated Glomerular Filt Rate 54; Glucose 161 mg/dL (65-110); Potassium 3.4 mmol/L (3.4-5.0); Sodium 135 mmol/L (137-145)
[2022-02-11 05:40] LABS: Troponin I < 0.012 ng/mL (0.000-0.034)
[2022-02-11] MEDS: APIXABAN 5 MG TABLET PO ×2 (08:55→20:30)
[2022-02-11] MEDS: LIDOCAINE 5% PATCH 1 PATCH TRANSDERM (09:13)
--- NOTE | 2022-02-11 12:01 | PCSTNOTE ---
Please refer to the Bedside Swallow Evaluation in the EMR. Please note, silent aspiration cannot be ruled out at bedside.
--- NOTE | 2022-02-11 14:18 | PC.NURSE ---
This patient, Zoe Hogue Dia, was transferred to [[facility] ] on 02/11/22 at 1418. Personal belongings sent with patient. Report given to [Nory ]. Appropriate documentation sent with patient.
--- NOTE | 2022-02-11 15:35 | PCSTNOTE ---
Please refer to the Modified Barium Swallow Evaluation in the EMR.
--- NOTE | 2022-02-11 16:59 | PM.EVENT ---
Event Note Event Note Event Note: Follow-up rounding note Patient seen by my colleague this morning Patient doing okay at the time my interview she does complain of ongoing productive cough with shortness of breath on oxygen Eyes: Sclera: sclerae normal, EOMI Neck: Neck: supple Resp: Auscultation: crackles and diminished lung sounds Cardio: Rate: regular rate and tachycardic Rhythm: regular rhythm GI: non-distended Soft No Guarding no rebound Neuro: Speech: normal speech Motor exam (neuro): 5/5 motor strength present throughout and Normal motor muscle tone present throughout Sensory Exam: normal sensation Other: Lower extremity weakness limited by pain Extrem: Full range of motion Psych: Mental Status: mental status grossly normal Status post fall with traumatic injury to left hip no fracture and non operative Continue pain management Known lung CA with associated CAP viral versus bacterial Continue IV antibiotic therapy for now Patient with persistent tachycardia she is hypoxic with malignancy and pneumonia Sputum culture when possible CT negative for PE Home medications are continued cholesterolemia and hypertension
[2022-02-11] MEDS: BACLOFEN 10 MG TABLET PO (20:30)
[2022-02-12] VITALS (13 sets, daily range): BP systolic 112–117; BP diastolic 48–61; PULSE 100–118; RESP 16–20; TEMP 35.7–36.9; O2SAT 93–100
[2022-02-12] MEDS: lisinopriL 20 MG TABLET PO ×2 (00:34→20:11)
[2022-02-12] MEDS: hydroCHLOROthiazide 12.5 MG CAPSULE PO ×2 (00:34→20:11)
[2022-02-12] MEDS: PRAVASTATIN SODIUM 20 MG TABLET 40 MG PO ×2 (00:35→20:10)
[2022-02-12] MEDS: MONTELUKAST SODIUM 10 MG TABLET PO ×2 (00:35→20:10)
[2022-02-12] MEDS: ALBUTEROL SULFATE (*SP) AEROSOL 1 PUFF 2 PUFF INHALATION ×4 (01:24→21:08)
[2022-02-12 05:30] LABS: Basophils Percent Auto 0.2 % (0.2-1.2); Eosinophils Absolute Auto 0.1 K/mm3 (0-0.3); Eosinophils Percent Auto 0.5 % (0-4.4); Hematocrit 30.3 % (37.0-47.0); Hemoglobin 9.9 g/dL (12.0-15.0); Immature Granulocyte Absolute 0.07 K/mm3 (0.00-0.031); Immature Granulocyte Percent A 0.6 % (0-0.5); Lymphocytes Absolute Auto 0.61 K/mm3 (0.9-3.2); Lymphocytes Percent Auto 4.9 % (18.3-44.2); Mean Corpuscular HGB Conc 32.7 g/dl (32-36); Mean Corpuscular Hemoglobin 32.2 pg (26-34); Mean Corpuscular Volume 98.7 fl (80-100); Monocytes Percent Auto 7.8 % (2.6-8.5); Neutrophils Absolute Auto 10.6 K/mm3 (1.3-6.7); Platelet Count Result 193 k/mm3 (150-375); Red Blood Count 3.07 M/mm3 (4.2-5.4); Red Cell Distribution Width 13.3 % (11.5-14.5); White Blood Count 12.4 K/mm3 (4.5-10.0)
[2022-02-12 05:43] LABS: Alanine Aminotransferase 23 U/L (4-35); Albumin Level 3.4 g/dL (3.5-5.1); Alkaline Phosphatase 120 U/L (38-126); Anion Gap 6 mmol/L (8-16); Aspartate Amino Transferase 33 U/L (14-36); Bilirubin,Total 0.6 mg/dL (0.2-1.3); Blood Urea Nitrogen 14 mg/dL (7-17); Calcium 7.8 mg/dL (8.4-10.2); Carbon Dioxide 31 mmol/L (22-30); Chloride 99 mmol/L (98-107); Estimated CRCL calculation 50 ml/min; Estimated Glomerular Filt Rate 54; Glucose 106 mg/dL (65-110); Magnesium 1.9 mg/dL (1.6-2.3); Potassium 3.1 mmol/L (3.4-5.0); Sodium 136 mmol/L (137-145)
[2022-02-12] MEDS: metroNIDAZOLE 500 MG/ISO 100ML 500 MG/100 ML BAG 100 MG IVPB ×3 (05:46→20:11)
[2022-02-12] MEDS: FLUTICASONE/UMECLIDIN/VILANTER 100-62.5-25 MCG ELLIPTA 1 PUFF INHALATION (07:49)
[2022-02-12] MEDS: POTASSIUM CHLORIDE 20 MEQ TABLET 40 MEQ PO (08:08)
[2022-02-12] MEDS: POTASSIUM CHLORIDE 20 MEQ TABLET PO (08:09)
[2022-02-12] MEDS: allopurinoL 300 MG TABLET PO (08:09)
[2022-02-12] MEDS: PANTOPRAZOLE 40 MG TABLET PO ×2 (08:10→16:35)
[2022-02-12] MEDS: BACLOFEN 10 MG TABLET PO ×3 (08:10→16:35)
[2022-02-12] MEDS: VITAMIN B COMPLEX CAPSULE 1 CAP PO ×2 (08:10→16:35)
[2022-02-12] MEDS: HYDROcodone/acetaminophen (*CRX) 5-325 MG TABLET 1 TAB PO (08:10)
[2022-02-12] MEDS: APIXABAN 5 MG TABLET PO ×2 (08:11→20:11)
[2022-02-12] MEDS: LIDOCAINE 5% PATCH 1 PATCH TRANSDERM (08:11)
--- NOTE | 2022-02-12 08:36 | PM.IMPN ---
Progress Note: A&P Assessment and Plan (1) Right leg pain: Code(s): M79.604 - Pain in right leg Status: Acute Assessment and Plan: Right leg x-ray Most likely related to fall and osteoarthritis - 02/12/22: Pain currently controlled. No new complaints. Continue pain control. Consult PT/OT. Review of imaging as follows; CT lumbar spine without acute fracture. There is moderate to severe L5-S1 spondylosis. X-ray of the hip and pelvis shows no acute osseous findings. There is moderate osteoarthritis. X-ray of right knee shows intact right knee medial arthroplasty hardware. There is osteoarthritis noted in other compartments but no acute fracture. (2) Tachycardia: Code(s): R00.0 - Tachycardia, unspecified Status: Acute Assessment and Plan: - Probably related to sepsis IV hydration IV antibiotics follow cultures - 02/12/22: Preliminary blood cultures x2 pending, sputum culture pending. WBC's now 12.4 and pending downward. Remains Tachycardic. Will continue to monitor. Etiology of tachycardia sepsis vs. hydration status vs. medication. Medication review without any obvious offending agents. Will hydrate within reason to avoid overload, monitor on telemetry, and consider Beta brianda as needed. (3) Lung cancer: Qualifiers: Laterality: unspecified laterality Lung location: unspecified part of lung Qualified Code(s): C34.90 - Malignant neoplasm of unspecified part of unspecified bronchus or lung Code(s): C34.90 - Malignant neoplasm of unspecified part of unspecified bronchus or lung Status: Chronic Assessment and Plan: - Status pos resection and radiation therapy (4) Hx of pulmonary embolus: Code(s): Z86.711 - Personal history of pulmonary embolism Status: Acute Assessment and Plan: - As patient has tachycardia and shortness of decision was made to proceed with CT scan of the chest to rule out recurrence of PE - Continue Eliquis - 02/12: CTA with limited segmental evaluation, but no PE is suspected. There is development of patchy right basilar airspace disease most likely PNA (of which pt. is being treated for), and mild increase in volume of treated right suprahilar, perihilar malignancy. There could be increase in the amount of radiation related scarring but some amount of progression of malignancy is not excludable. Will recommend pt. follow up with PCP and Oncological experts upon discharge. - 02/12: Consider re-imaging prior to discharge to evaluate infectious vs. malignancy after she has been treated with abx. - Continue anticoagulation. (5) Leukocytosis: Qualifiers: Leukocytosis type: unspecified Qualified Code(s): D72.829 - Elevated white blood cell count, unspecified Code(s): D72.829 - Elevated white blood cell count, unspecified Status: Acute Assessment and Plan: - Most likely related to pneumonia management as above (6) Sepsis: Qualifiers: Sepsis acute organ dysfunction status: unspecified Sepsis type: sepsis due to unspecified organism Qualified Code(s): A41.9 - Sepsis, unspecified organism Code(s): A41.9 - Sepsis, unspecified organism Status: Resolved Assessment and Plan: Blood culture sputum culture Legionella pneumococcal urine antigen Broad-spectrum IV antibiotics Concern for aspiration pneumonia Speech swallow evaluation - 02/12/22: Preliminary blood cultures x2 pending, sputum culture pending. WBC's now 12.4 and pending downward. Remains Tachycardic. Continue antibiotics of cefepime, vancomycin & Flagyl. Will continue to monitor. Etiology of tachycardia sepsis vs. hydration status vs. medication. Medication review without any obvious offending agents. Will hydrate within reason to avoid overload, monitor on telemetry, and consider Beta brianda as needed. Barium swallow performed,. pt. to have regular diet with thickened liquids. No longer meeting sepsis criteria. (7) COPD (chr
[2022-02-12 21:42] LABS: Glucose Point of Care 199 mg/dl (65-105)
[2022-02-13] VITALS (11 sets, daily range): BP systolic 128–151; BP diastolic 55–83; PULSE 102–118; RESP 18–20; TEMP 36.5–37.5; O2SAT 92–97
[2022-02-13] MEDS: ALBUTEROL SULFATE (*SP) AEROSOL 1 PUFF 2 PUFF INHALATION ×4 (02:41→19:58)
[2022-02-13] MEDS: metroNIDAZOLE 500 MG/ISO 100ML 500 MG/100 ML BAG 100 MG IVPB (05:14)
[2022-02-13 07:11] LABS: Basophils Percent Auto 0.4 % (0.2-1.2); Eosinophils Absolute Auto 0.1 K/mm3 (0-0.3); Eosinophils Percent Auto 0.9 % (0-4.4); Hematocrit 30.5 % (37.0-47.0); Hemoglobin 9.9 g/dL (12.0-15.0); Immature Granulocyte Absolute 0.07 K/mm3 (0.00-0.031); Immature Granulocyte Percent A 0.7 % (0-0.5); Lymphocytes Absolute Auto 0.59 K/mm3 (0.9-3.2); Lymphocytes Percent Auto 5.5 % (18.3-44.2); Mean Corpuscular HGB Conc 32.5 g/dl (32-36); Mean Corpuscular Hemoglobin 31.7 pg (26-34); Mean Corpuscular Volume 97.8 fl (80-100); Mean Platelet Volume 9.8 fl (7.4-10.4); Monocytes Absolute Auto 0.9 K/mm3 (0.1-0.6); Neutrophils Percent Auto 84.5 % (45.5-73.1); Platelet Count Result 186 k/mm3 (150-375); Red Blood Count 3.12 M/mm3 (4.2-5.4); Red Cell Distribution Width 13.4 % (11.5-14.5); White Blood Count 10.7 K/mm3 (4.5-10.0)
[2022-02-13 07:27] LABS: Alanine Aminotransferase 22 U/L (4-35); Albumin Level 3.4 g/dL (3.5-5.1); Alkaline Phosphatase 127 U/L (38-126); Anion Gap 5 mmol/L (8-16); Aspartate Amino Transferase 28 U/L (14-36); Bilirubin,Total 0.5 mg/dL (0.2-1.3); Blood Urea Nitrogen 18 mg/dL (7-17); Calcium 8.2 mg/dL (8.4-10.2); Carbon Dioxide 29 mmol/L (22-30); Chloride 102 mmol/L (98-107); Estimated CRCL calculation 50 ml/min; Estimated Glomerular Filt Rate 54; Glucose 128 mg/dL (65-110); Magnesium 1.7 mg/dL (1.6-2.3); Potassium 3.9 mmol/L (3.4-5.0); Sodium 136 mmol/L (137-145)
[2022-02-13 07:45] LABS: Vancomycin Trough 12.6 ug/mL (10.0-20.0)
[2022-02-13] MEDS: BACLOFEN 10 MG TABLET PO ×3 (08:23→17:00)
[2022-02-13] MEDS: VITAMIN B COMPLEX CAPSULE 1 CAP PO ×2 (08:23→17:00)
[2022-02-13] MEDS: APIXABAN 5 MG TABLET PO ×2 (08:23→21:13)
[2022-02-13] MEDS: PANTOPRAZOLE 40 MG TABLET PO ×2 (08:23→17:01)
[2022-02-13] MEDS: allopurinoL 300 MG TABLET PO (08:23)
[2022-02-13] MEDS: LIDOCAINE 5% PATCH 1 PATCH TRANSDERM (08:23)
[2022-02-13] MEDS: FLUCONAZOLE 150 MG TABLET PO (08:26)
[2022-02-13] MEDS: FLUTICASONE/UMECLIDIN/VILANTER 100-62.5-25 MCG ELLIPTA 1 PUFF INHALATION (08:49)
--- NOTE | 2022-02-13 10:44 | PM.IMPN ---
Progress Note: A&P Assessment and Plan (1) Right leg pain: Code(s): M79.604 - Pain in right leg Status: Acute Assessment and Plan: Right leg x-ray Most likely related to fall and osteoarthritis Pain currently controlled. No new complaints. Continue pain control. Consult PT/OT. Review of imaging as follows; CT lumbar spine without acute fracture. There is moderate to severe L5-S1 spondylosis. X-ray of the hip and pelvis shows no acute osseous findings. There is moderate osteoarthritis. X-ray of right knee shows intact right knee medial arthroplasty hardware. There is osteoarthritis noted in other compartments but no acute fracture. (2) Tachycardia: Code(s): R00.0 - Tachycardia, unspecified Status: Acute Assessment and Plan: Preliminary blood cultures x2 negative for the last 48 hours, sputum culture revealed Gram-positive bacilli. WBC trending down. Patient Remains Tachycardic. Will continue to monitor. Etiology of tachycardia sepsis vs. hydration status vs. medication. Medication review without any obvious offending agents. Of note the patient was tachycardic with a heart rate in the s and January 2020 during that admission. Will initiate a low-dose beta-brianda. Metoprolol succinate 12.5 q.day (3) Lung cancer: Qualifiers: Laterality: unspecified laterality Lung location: unspecified part of lung Qualified Code(s): C34.90 - Malignant neoplasm of unspecified part of unspecified bronchus or lung Code(s): C34.90 - Malignant neoplasm of unspecified part of unspecified bronchus or lung Status: Chronic Assessment and Plan: - Status pos resection and radiation therapy Patient may need to follow-up with her oncologist given her CT findings (4) Hx of pulmonary embolus: Code(s): Z86.711 - Personal history of pulmonary embolism Status: Acute Assessment and Plan: - As patient has tachycardia and shortness of decision was made to proceed with CT scan of the chest to rule out recurrence of PE - Continue Eliquis - 02/12: CTA with limited segmental evaluation, but no PE is suspected. There is development of patchy right basilar airspace disease most likely PNA (of which pt. is being treated for), and mild increase in volume of treated right suprahilar, perihilar malignancy. There could be increase in the amount of radiation related scarring but some amount of progression of malignancy is not excludable. Will recommend pt. follow up with PCP and Oncological experts upon discharge. Discussed with the patient about reimaging for evaluation of the CT findings for infectious versus malignancy and follow up with her PCP and possible referral to an oncologist. Discussed possible relation acute infection, patient was understanding. Continue anticoagulation (5) Leukocytosis: Qualifiers: Leukocytosis type: unspecified Qualified Code(s): D72.829 - Elevated white blood cell count, unspecified Code(s): D72.829 - Elevated white blood cell count, unspecified Status: Acute Assessment and Plan: - Most likely related to pneumonia management as above (6) Sepsis: Qualifiers: Sepsis type: sepsis due to unspecified organism Sepsis acute organ dysfunction status: unspecified Qualified Code(s): A41.9 - Sepsis, unspecified organism Code(s): A41.9 - Sepsis, unspecified organism Status: Resolved Assessment and Plan: Blood culture sputum culture Legionella pneumococcal urine antigen Concern for aspiration pneumonia Speech swallow evaluation reported a barium swallow with reduced laryngeal elevation, abduction and pharyngeal squeeze and vallecula residual, laryngeal penetration demonstrated. Oral feedings recommended with limitations as per speech pathologist. Moderately thick liquids and chin tucked (7) COPD (chronic obstructive pulmonary disease): Qualifiers: COPD type: unspecified COPD Qualifi
[2022-02-13 12:43] LABS: Glucose Point of Care 188 mg/dl (65-105)
[2022-02-13 13:48] LABS: Pneumococcal Antigen Urine Not Detected (Not Detected)
[2022-02-13 16:21] LABS: Glucose Point of Care 125 mg/dl (65-105)
[2022-02-13 20:24] LABS: Glucose Point of Care 233 mg/dl (65-105)
[2022-02-13] MEDS: DOXYCYCLINE HYCLATE 100 MG TABLET PO (21:13)
[2022-02-13] MEDS: MONTELUKAST SODIUM 10 MG TABLET PO (21:14)
[2022-02-13] MEDS: lisinopriL 20 MG TABLET PO (21:14)
[2022-02-13] MEDS: hydroCHLOROthiazide 12.5 MG CAPSULE PO (21:14)
[2022-02-13] MEDS: PRAVASTATIN SODIUM 20 MG TABLET 40 MG PO (21:14)
[2022-02-14] VITALS (13 sets, daily range): BP systolic 109–134; BP diastolic 55–69; PULSE 99–116; RESP 18–20; TEMP 36.3–37.4; O2SAT 93–97
[2022-02-14] MEDS: ALBUTEROL SULFATE (*SP) AEROSOL 1 PUFF 2 PUFF INHALATION ×3 (01:51→20:28)
[2022-02-14 05:52] LABS: Alanine Aminotransferase 21 U/L (4-35); Albumin Level 3.4 g/dL (3.5-5.1); Alkaline Phosphatase 122 U/L (38-126); Anion Gap 4 mmol/L (8-16); Aspartate Amino Transferase 23 U/L (14-36); Bilirubin,Total 0.4 mg/dL (0.2-1.3); Blood Urea Nitrogen 15 mg/dL (7-17); Carbon Dioxide 31 mmol/L (22-30); Chloride 99 mmol/L (98-107); Estimated CRCL calculation 50 ml/min; Estimated Glomerular Filt Rate 54; Glucose 147 mg/dL (65-110); Magnesium 1.7 mg/dL (1.6-2.3); Potassium 3.3 mmol/L (3.4-5.0); Sodium 134 mmol/L (137-145)
[2022-02-14 06:03] LABS: Basophils Percent Auto 0.3 % (0.2-1.2); Eosinophils Absolute Auto 0.1 K/mm3 (0-0.3); Eosinophils Percent Auto 0.7 % (0-4.4); Hematocrit 30.3 % (37.0-47.0); Hemoglobin 10.1 g/dL (12.0-15.0); Immature Granulocyte Absolute 0.07 K/mm3 (0.00-0.031); Immature Granulocyte Percent A 0.8 % (0-0.5); Mean Corpuscular HGB Conc 33.3 g/dl (32-36); Mean Corpuscular Hemoglobin 32.5 pg (26-34); Mean Corpuscular Volume 97.4 fl (80-100); Mean Platelet Volume 10.1 fl (7.4-10.4); Monocytes Absolute Auto 0.9 K/mm3 (0.1-0.6); Monocytes Percent Auto 10.3 % (2.6-8.5); Neutrophils Absolute Auto 6.9 K/mm3 (1.3-6.7); Neutrophils Percent Auto 80.9 % (45.5-73.1); Platelet Count Result 219 k/mm3 (150-375); Red Blood Count 3.11 M/mm3 (4.2-5.4); Red Cell Distribution Width 13.2 % (11.5-14.5); White Blood Count 8.6 K/mm3 (4.5-10.0)
[2022-02-14 07:38] LABS: Glucose Point of Care 116 mg/dl (65-105)
[2022-02-14] MEDS: allopurinoL 300 MG TABLET PO (08:27)
[2022-02-14] MEDS: METOPROLOL SUCCINATE EXT REL 12.5 MG TABCR PO (08:27)
[2022-02-14] MEDS: APIXABAN 5 MG TABLET PO ×2 (08:28→21:04)
[2022-02-14] MEDS: DOXYCYCLINE HYCLATE 100 MG TABLET PO ×2 (08:28→21:04)
[2022-02-14] MEDS: PANTOPRAZOLE 40 MG TABLET PO ×2 (08:28→16:28)
[2022-02-14] MEDS: VITAMIN B COMPLEX CAPSULE 1 CAP PO ×2 (08:29→16:28)
[2022-02-14] MEDS: LIDOCAINE 5% PATCH 1 PATCH TRANSDERM (08:30)
[2022-02-14] MEDS: POTASSIUM CHLORIDE 20 MEQ TABLET 40 MEQ PO (08:31)
[2022-02-14] MEDS: BACLOFEN 10 MG TABLET PO ×3 (08:31→16:28)
--- NOTE | 2022-02-14 10:06 | PM.IMPN ---
Progress Note: A&P Assessment and Plan (1) Right leg pain: Code(s): M79.604 - Pain in right leg Status: Resolved Assessment and Plan: Right leg x-ray Most likely related to fall and osteoarthritis Pain currently controlled. No new complaints. Continue pain control. Consult PT/OT. Review of imaging as follows; CT lumbar spine without acute fracture. There is moderate to severe L5-S1 spondylosis. X-ray of the hip and pelvis shows no acute osseous findings. There is moderate osteoarthritis. X-ray of right knee shows intact right knee medial arthroplasty hardware. There is osteoarthritis noted in other compartments but no acute fracture. (2) Tachycardia: Code(s): R00.0 - Tachycardia, unspecified Status: Acute Assessment and Plan: Preliminary blood cultures x2 negative for the last 48 hours, sputum culture revealed Gram-positive bacilli. WBC trending down. Patient Remains Tachycardic. Will continue to monitor. Etiology of tachycardia sepsis vs. hydration status vs. medication. Medication review without any obvious offending agents. Of note the patient was tachycardic with a heart rate in the s and January 2020 during that admission. Will initiate a low-dose beta-brianda. Metoprolol succinate 12.5 q.day (3) Lung cancer: Qualifiers: Laterality: unspecified laterality Lung location: unspecified part of lung Qualified Code(s): C34.90 - Malignant neoplasm of unspecified part of unspecified bronchus or lung Code(s): C34.90 - Malignant neoplasm of unspecified part of unspecified bronchus or lung Status: Chronic Assessment and Plan: - Status pos resection and radiation therapy Patient may need to follow-up with her oncologist given her CT findings (4) Hx of pulmonary embolus: Code(s): Z86.711 - Personal history of pulmonary embolism Status: Acute Assessment and Plan: - As patient has tachycardia and shortness of decision was made to proceed with CT scan of the chest to rule out recurrence of PE - Continue Eliquis - 02/12: CTA with limited segmental evaluation, but no PE is suspected. --Discussed with the patient about reimaging for evaluation of the CT findings for infectious versus malignancy and follow up with her PCP and possible referral to an oncologist. Discussed possible relation acute infection, patient was understanding. (5) Leukocytosis: Qualifiers: Leukocytosis type: unspecified Qualified Code(s): D72.829 - Elevated white blood cell count, unspecified Code(s): D72.829 - Elevated white blood cell count, unspecified Status: Acute Assessment and Plan: - Most likely related to pneumonia management as above (6) Sepsis: Qualifiers: Sepsis type: sepsis due to unspecified organism Sepsis acute organ dysfunction status: unspecified Qualified Code(s): A41.9 - Sepsis, unspecified organism Code(s): A41.9 - Sepsis, unspecified organism Status: Resolved Assessment and Plan: Blood culture sputum culture Legionella - pending pneumococcal urine antigen-not detected Concern for aspiration pneumonia Speech swallow evaluation reported a barium swallow with reduced laryngeal elevation, abduction and pharyngeal squeeze and vallecula residual, laryngeal penetration demonstrated. Oral feedings recommended with limitations as per speech pathologist. Moderately thick liquids and chin tucked (7) COPD (chronic obstructive pulmonary disease): Qualifiers: COPD type: unspecified COPD Qualified Code(s): J44.9 - Chronic obstructive pulmonary disease, unspecified Code(s): J44.9 - Chronic obstructive pulmonary disease, unspecified Status: Chronic Assessment and Plan: -continue fluticasone. (8) HTN (hypertension): Qualifiers: Hypertension type: unspecified Qualified Code(s): I10 - Essential (primary) hypertension Code(s): I10 - Essential (pr
[2022-02-14 11:49] LABS: Glucose Point of Care 187 mg/dl (65-105)
[2022-02-14 16:11] LABS: Glucose Point of Care 110 mg/dl (65-105)
[2022-02-14] MEDS: PRAVASTATIN SODIUM 20 MG TABLET 40 MG PO (21:03)
[2022-02-14] MEDS: hydroCHLOROthiazide 12.5 MG CAPSULE PO (21:04)
[2022-02-14] MEDS: lisinopriL 20 MG TABLET PO (21:04)
[2022-02-14] MEDS: MONTELUKAST SODIUM 10 MG TABLET PO (21:04)
[2022-02-14 21:28] LABS: Glucose Point of Care 224 mg/dl (65-105)
[2022-02-15] VITALS: PULSE 109
[2022-02-15] MEDS: ALBUTEROL SULFATE (*SP) AEROSOL 1 PUFF 2 PUFF INHALATION ×2 (02:00→08:07)
[2022-02-15 04:00] VITALS: PULSE 85
[2022-02-15 05:46] LABS: Basophils Percent Auto 0.6 % (0.2-1.2); Eosinophils Absolute Auto 0.3 K/mm3 (0-0.3); Eosinophils Percent Auto 3.7 % (0-4.4); Hematocrit 29.6 % (37.0-47.0); Hemoglobin 9.6 g/dL (12.0-15.0); Immature Granulocyte Absolute 0.07 K/mm3 (0.00-0.031); Lymphocytes Absolute Auto 0.76 K/mm3 (0.9-3.2); Lymphocytes Percent Auto 10.9 % (18.3-44.2); Mean Corpuscular HGB Conc 32.4 g/dl (32-36); Mean Corpuscular Hemoglobin 32.5 pg (26-34); Mean Corpuscular Volume 100.3 fl (80-100); Mean Platelet Volume 9.7 fl (7.4-10.4); Monocytes Absolute Auto 0.9 K/mm3 (0.1-0.6); Monocytes Percent Auto 13.1 % (2.6-8.5); Neutrophils Percent Auto 70.7 % (45.5-73.1); Platelet Count Result 222 k/mm3 (150-375); Red Blood Count 2.95 M/mm3 (4.2-5.4); Red Cell Distribution Width 13.6 % (11.5-14.5)
[2022-02-15 05:55] LABS: Alanine Aminotransferase 20 U/L (4-35); Alkaline Phosphatase 109 U/L (38-126); Anion Gap 5 mmol/L (8-16); Aspartate Amino Transferase 27 U/L (14-36); Bilirubin,Total 0.4 mg/dL (0.2-1.3); Blood Urea Nitrogen 17 mg/dL (7-17); Calcium 7.9 mg/dL (8.4-10.2); Carbon Dioxide 32 mmol/L (22-30); Chloride 100 mmol/L (98-107); Estimated CRCL calculation 50 ml/min; Estimated Glomerular Filt Rate 54; Glucose 118 mg/dL (65-110); Magnesium 1.7 mg/dL (1.6-2.3); Potassium 3.7 mmol/L (3.4-5.0); Sodium 137 mmol/L (137-145)
[2022-02-15 06:00] VITALS: BP 118/60; PULSE 97; RESP 16; TEMP 37; O2SAT 97
[2022-02-15 07:44] LABS: Glucose Point of Care 128 mg/dl (65-105)
[2022-02-15 08:08] VITALS: O2SAT 94
[2022-02-15] MEDS: FLUTICASONE/UMECLIDIN/VILANTER 100-62.5-25 MCG ELLIPTA 1 PUFF INHALATION (08:08)
[2022-02-15 08:20] VITALS: PULSE 114
[2022-02-15] MEDS: PANTOPRAZOLE 40 MG TABLET PO (08:20)
[2022-02-15] MEDS: LIDOCAINE 5% PATCH 1 PATCH TRANSDERM (08:20)
[2022-02-15] MEDS: METOPROLOL SUCCINATE EXT REL 12.5 MG TABCR PO (08:20)
[2022-02-15] MEDS: BACLOFEN 10 MG TABLET PO (08:21)
[2022-02-15] MEDS: VITAMIN B COMPLEX CAPSULE 1 CAP PO (08:21)
[2022-02-15] MEDS: allopurinoL 300 MG TABLET PO (08:21)
[2022-02-15] MEDS: DOXYCYCLINE HYCLATE 100 MG TABLET PO (08:21)
--- NOTE | 2022-02-15 08:37 | P.PNIM_ITS ---
Progress Note: A&P Assessment and Plan (1) Right leg pain: Code(s): M79.604 - Pain in right leg Status: Resolved Assessment and Plan: Right leg x-ray Most likely related to fall and osteoarthritis Pain currently controlled. No new complaints. Continue pain control. Consult PT/OT. Review of imaging as follows; CT lumbar spine without acute fracture. There is moderate to severe L5-S1 spondylosis. X-ray of the hip and pelvis shows no acute osseous findings. There is moderate osteoarthritis. X-ray of right knee shows intact right knee medial arthroplasty hardware. There is osteoarthritis noted in other compartments but no acute fracture. (2) Tachycardia: Code(s): R00.0 - Tachycardia, unspecified Status: Acute Assessment and Plan: Preliminary blood cultures x2 negative for the last 48 hours, sputum culture revealed Gram-positive bacilli. WBC trending down. Patient Remains Tachycardic. Will continue to monitor. Etiology of tachycardia sepsis vs. hydration status vs. medication. Medication review without any obvious offending agents. Of note the patient was tachycardic with a heart rate in the s and January 2020 during that admission. Will initiate a low-dose beta-brianda. Metoprolol succinate 12.5 q.day (3) Lung cancer: Qualifiers: Laterality: unspecified laterality Lung location: unspecified part of lung Qualified Code(s): C34.90 - Malignant neoplasm of unspecified part of unspecified bronchus or lung Code(s): C34.90 - Malignant neoplasm of unspecified part of unspecified bronchus or lung Status: Chronic Assessment and Plan: - Status pos resection and radiation therapy Patient may need to follow-up with her oncologist given her CT findings (4) Hx of pulmonary embolus: Code(s): Z86.711 - Personal history of pulmonary embolism Status: Acute Assessment and Plan: - As patient has tachycardia and shortness of decision was made to proceed with CT scan of the chest to rule out recurrence of PE - Continue Eliquis - 02/12: CTA with limited segmental evaluation, but no PE is suspected. --Discussed with the patient about reimaging for evaluation of the CT findings for infectious versus malignancy and follow up with her PCP and possible referral to an oncologist. Discussed possible relation acute infection, patient was understanding. (5) Leukocytosis: Qualifiers: Leukocytosis type: unspecified Qualified Code(s): D72.829 - Elevated white blood cell count, unspecified Code(s): D72.829 - Elevated white blood cell count, unspecified Status: Acute Assessment and Plan: - Most likely related to pneumonia management as above (6) Sepsis: Qualifiers: Sepsis acute organ dysfunction status: unspecified Sepsis type: sepsis due to unspecified organism Qualified Code(s): A41.9 - Sepsis, unspecified organism Code(s): A41.9 - Sepsis, unspecified organism Status: Resolved Assessment and Plan: Blood culture sputum culture Legionella - pending pneumococcal urine antigen-not detected Concern for aspiration pneumonia Speech swallow evaluation reported a barium swallow with reduced laryngeal elevation, abduction and pharyngeal squeeze and vallecula residual, laryngeal penetration demonstrated. Oral feedings recommended with limitations as per speech pathologist. Moderately thick liquids and chin tucked (7) COPD (chronic obstructive pulmonary disease): Qualifiers: COPD type: unspecified COPD Qualified Code(s): J44.9 - Chronic obstructive pulmonary disease, unspecified
--- NOTE | 2022-02-15 08:42 | PM.DS ---
DS: Admitting Diagnosis Discharge Date 02/15/22 Admitting Diagnosis Right leg pain, tachycardia, lung cancer, history of pulmonary embolus, leukocytosis, sepsis, COPD, hypertension, CVA, fall, pneumonia DS: Discharge Diagnosis Discharge Diagnosis (1) Right leg pain: Code(s): M79.604 - Pain in right leg Status: Resolved Assessment and Plan: Right leg x-ray Most likely related to fall and osteoarthritis Pain currently controlled. No new complaints. Continue pain control. Consult PT/OT. Review of imaging as follows; CT lumbar spine without acute fracture. There is moderate to severe L5-S1 spondylosis. X-ray of the hip and pelvis shows no acute osseous findings. There is moderate osteoarthritis. X-ray of right knee shows intact right knee medial arthroplasty hardware. There is osteoarthritis noted in other compartments but no acute fracture. (2) Tachycardia: Code(s): R00.0 - Tachycardia, unspecified Status: Acute Assessment and Plan: Preliminary blood cultures x2 negative for the last 48 hours, sputum culture revealed Gram-positive bacilli. Treating with doxycycline p.o. WBC trending down. Patient slightly Tachycardic. chronic . Etiology of tachycardia sepsis vs. hydration status vs. medication. Medication review without any obvious offending agents. Of note the patient was tachycardic with a heart rate in the and January 2020 during that admission. Will initiate a low-dose beta-brianda. Metoprolol succinate 12.5 q.day. She tolerated metoprolol initiation of dosing and will continue on metoprolol at discharge. She will be at a [facility] care facility where they can not continue to monitor her vital signs including blood pressure and heart rate. (3) Lung cancer: Qualifiers: Laterality: unspecified laterality Lung location: unspecified part of lung Qualified Code(s): C34.90 - Malignant neoplasm of unspecified part of unspecified bronchus or lung Code(s): C34.90 - Malignant neoplasm of unspecified part of unspecified bronchus or lung Status: Chronic Assessment and Plan: - Status pos resection and radiation therapy Patient may need to follow-up with her oncologist given her CT findings Orders for patient to follow-up with her oncologist placed in her discharge instructions. (4) Hx of pulmonary embolus: Code(s): Z86.711 - Personal history of pulmonary embolism Status: Acute Assessment and Plan: - As patient has tachycardia and shortness of decision was made to proceed with CT scan of the chest to rule out recurrence of PE - Continue Eliquis - 02/12: CTA with limited segmental evaluation, but no PE is suspected. --Discussed with the patient about reimaging for evaluation of the CT findings for infectious versus malignancy and follow up with her PCP and possible referral to an oncologist. Discussed possible relation to infection, patient was understanding. (5) Leukocytosis: Qualifiers: Leukocytosis type: unspecified Qualified Code(s): D72.829 - Elevated white blood cell count, unspecified Code(s): D72.829 - Elevated white blood cell count, unspecified Status: Acute Assessment and Plan: - Most likely related to pneumonia management as above Resolved and white count is 7.0 today No fevers no chills, no cough, no chest pain no chest pressure, no nausea no vomiting no diarrhea no constipation (6) Sepsis: Qualifiers: Sepsis acute organ dysfunction status: unspecified Sepsis type: sepsis due to unspecified organism Qualified Code(s): A41.9 - Sepsis, unspecified organism Code(s): A41.9 - Sepsis, unspecified organism Status: Resolved Assessment and Plan: Blood culture sputum culture Legionella - pending pneumococcal urine antigen-not detected Concern for aspiration pneumonia Speech swallow evaluation reported a barium swallow with reduced laryngeal elevation, abduction and pharynge
[2022-02-15] MEDS: APIXABAN 5 MG TABLET PO (08:53)
[2022-02-15 08:59] LABS: Phosphorus 3.1 mg/dL (2.5-4.5)
[2022-02-15 09:16] LABS: EDCOVIDSCREEN Negative (Negative)
[2022-02-16 16:54] LABS: Legionella pneumophila Ag Ur Not Detected (Not Detected)
== END 2022-02-15 10:27 | DRG 871 ==
LOC: ANHED 02-11 01:49 → ANHIMU 02-11 03:32 → ANH3MED 02-11 13:58
PROVIDERS: Emergency Medicine; Nurse Practitioner Adult Health; Nurse Practitioner Family; Admitting Provider Internal Medicine; Emergency Provider Emergency Medicine; PCP Internal Medicine; Visit Provider Nurse Practitioner
DX: A41.9 Sepsis, unspecified organism (principal); J18.9 Pneumonia, unspecified organism; J69.0 Pneumonitis due to inhalation of food and vomit; C34.90 Malignant neoplasm of unspecified part of unspecified bronchus or lung; J44.0 Chronic obstructive pulmonary disease with (acute) lower respiratory infection; M19.09 Primary osteoarthritis, other specified site; Z20.822 Contact with and (suspected) exposure to COVID-19; R00.0 Tachycardia, unspecified; D72.829 Elevated white blood cell count, unspecified; I10 Essential (primary) hypertension; E78.5 Hyperlipidemia, unspecified; W19.XXXA Unspecified fall, initial encounter; K21.9 Gastro-esophageal reflux disease without esophagitis; E11.42 Type 2 diabetes mellitus with diabetic polyneuropathy; G47.30 Sleep apnea, unspecified; M47.817 Spondylosis without myelopathy or radiculopathy, lumbosacral region; Z86.711 Personal history of pulmonary embolism; Z79.01 Long term (current) use of anticoagulants; Z86.73 Personal history of transient ischemic attack (TIA), and cerebral infarction without residual deficits; Z86.718 Personal history of other venous thrombosis and embolism; E66.9 Obesity, unspecified; Z68.31 Body mass index [BMI] 31.0-31.9, adult; Z96.651 Presence of right artificial knee joint; F17.210 Nicotine dependence, cigarettes, uncomplicated; B96.5 Pseudomonas (aeruginosa) (mallei) (pseudomallei) as the cause of diseases classified elsewhere; R09.02 Hypoxemia; Z90.710 Acquired absence of both cervix and uterus; Z79.84 Long term (current) use of oral hypoglycemic drugs
CPT/HCPCS: 36415; 70450; 71045; 71275; 72125; 72131; 72170; 73030; 73521; 73562; 80053; 80202; 81001; 82550; 82948; 83735; 83880; 84100; 84443; 84484; 84550; 85025; 85610; 85730; 87040; 87070; 87077; 87186; 87205; 87426; 87449; 87899; 92526; 92610; 92611; 93005; 93306; 94640; 96361; 96365; 96366; 96367; 97110; 97116; 97163; 97165; 97530; 97535; 99285; A9270; C9803; G0378; J0692; J3370; J3475; J7030; Q9967; U0003; U0005

== ENCOUNTER 2022-04-03 14:39 | Emergency (ER) | payer MEDICARE, SELFPAY ==
--- NOTE | ~2022-04-03 | XR_ITS ---
XR hip RT 2V w AP pelvis 04/03/2022 15:09 Indication: Status post recent fall. Hip pain. Procedure: 3 views right hip including AP pelvis Comparison: 02/11/2022 Findings: Pelvic rings are intact. There is mild osteoarthritis of the hips. Sacral foramen are symme tric. No fracture, subluxation or dislocation. No soft tissue abnormality. No foreign bodies. Impression: 1: No acute fracture. Reviewed, dictated and finalized at location A. Impression: 1: No acute fracture.
--- NOTE | ~2022-04-03 | CT_ITS ---
EXAMINATION: CT brain wo con DATE: 04/03/2022 15:46 INDICATION: Status post head injury. Patient on blood thinners. TECHNIQUE: Computed tomography (CT) of the head was performed without intravenous contrast. The dose- length product was 529.67 mGy-cm. Automated exposure control and iterative reconstruction technique w ere employed. COMPARISON: CT dated 02/10/2022 FINDINGS: Generalized atrophy. There are scattered moderate periventricular and subcortical white mat ter changes, most likely related to small vessel ischemic disease (microangiopathy). No acute intracr anial hemorrhage, infarction, mass or mass effect. There is intracranial atherosclerosis. There is a left mastoid effusion. No depressed skull fractures. Paranasal sinuses are unremarkable. IMPRESSION: 1. No acute intracranial abnormality. 2: Chronic age-related findings. Reviewed, dictated and finalized at location A.
--- NOTE | ~2022-04-03 | CT_ITS ---
EXAMINATION: CT cervical spine wo con DATE: 04/03/2022 15:46 INDICATION: Neck pain after trauma TECHNIQUE: Computed tomography (CT) of the cervical spine was performed without intravenous contrast. The dose-length product was 369 mGy-cm. Automated exposure control and iterative reconstruction tech [employer] were employed. COMPARISON: CT dated 02/10/2022 FINDINGS: there is right apical pleural thickening/scarring. Vertebral body heights are maintained. T here is mild multilevel degenerative disc disease, most prominent at C5-6 and C6-7. No evidence for p erched facet. Odontoid process within normal limits. There is multilevel uncinate and facet hypertrop hy. No acute fracture, subluxation or dislocation. There is a left mastoid effusion. Craniovertebral junction is unremarkable. No evidence for perched facet. There is degenerative anterolisthesis at C4- 5. IMPRESSION: 1. No acute abnormality of the cervical spine. 2: Moderate cervical spondylosis. Reviewed, dictated and finalized at location A.
[2022-04-03 14:39] VITALS: BP 120/62; PULSE 94; RESP 18; TEMP 36.7; O2SAT 97
--- NOTE | 2022-04-03 15:19 | ED.FALL ---
HPI - Fall General Chief Complaint: Fall Stated Complaint: fall, head pain Time Seen by Provider: 04/03/22 14:52 History of Present Illness HPI Narrative: Patient is a 71-year-old female here for evaluation status post a fall earlier today. Patient states that she was using her walker to get into the bathroom, when she accidentally tripped and landed on her right side. She states the back of her head against a wall on the way down, but she denies loss of consciousness. She takes Eliquis. Patient has been ambulatory since the incident. Took a Tylenol today, notes this has managed her pain well. Denies visual changes, headaches, weakness, fevers, chest pain, shortness of breath, presently or prior to fall. She is currently living at an assisted living facility for rehab for frequent falls. Related Data Allergies Allergy/AdvReac Type Severity Reaction Status Date / Time diclofenac [From Voltaren] Allergy Difficulty Verified 04/03/22 14:45 Breathing penicillin V Allergy Itching Verified 04/03/22 14:45 Review of Systems Review of Systems: Gen: Denies fevers or chills Eyes: Denies eye pain or visual change ENT: Denies congestion Respiratory: Denies shortness of breath or cough CV: Denies chest pain or palpitations GI: Denies abdominal pain nausea, emesis or diarrhea denies burning, urgency, frequency or hematuria Musculoskeletal: Reports right hip pain and upper back pain. Denies back pain or muscle pain Neuro: Reports headache. Denies numbness, tingling, weakness or focal weakness Skin: Denies rash Except as documented, all other systems reviewed and negative Exam Narrative: APPEARANCE: Well appearing, no pain in distress, well-nourished. Head: normocephalic and atraumatic. No hemotympanum. EYES: PERRLA/EOMI, conjunctivae clear NOSE: No nasal drainage EARS: External ear normal in appearance THROAT: Oropharynx is clear. Mucous membranes are moist. NECK: Tender to palpation along the midline of C7. Supple. No adenopathy, no masses. RESPIRATORY: Airway patent, respirations nonlabored. Clear to auscultation bilaterally, no rales, rhonchi, wheezing. CARDIOVASCULAR: Regular rate and rhythm without murmurs, rubs, or gallops. ABDOMINAL: Normoactive bowel sounds. Soft, nontender, nondistended. No rebound tenderness or guarding. MUSCULOSKELETAL: Full range of motion of right hip without pain. Tender to palpation along right posterior glute. Range of motion in knee and foot without pain. Extremities are warm and well-perfused. No edema. NEURO: Cranial nerves II through XII intact. Normal speech. No focal neurologic deficits. SKIN: Skin is warm and dry. No rashes. PSYCHIATRIC: Normal affect/mood. Course Vital Signs Vital signs: Vital Signs Temperature 98.1 F 04/03/22 14:39 Pulse Rate 94 04/03/22 14:39 Respiratory Rate 18 04/03/22 14:39 Blood Pressure 120/62 04/03/22 14:39 Pulse Oximetry 97 04/03/22 14:39 Oxygen Delivery Room Air 04/03/22 14:39 Temperature 98.1 F 04/03/22 14:39 Pulse Rate 97 04/03/22 17:20 Respiratory Rate 18 04/03/22 17:20 Blood Pressure 121/65 04/03/22 17:20 Pulse Oximetry 97 04/03/22 17:20 Oxygen Delivery Room Air 04/03/22 14:39 MDM - Fall MDM Narrative Medical decision making narrative: 71-year-old female here for evaluation of right hip pain after a presumed mechanical fall today with head injury but no loss of consciousness. Vital signs normal, no bony tenderness to palpation of right hip full range of motion, no cranial nerve deficits or signs of significant head trauma on exam. Given Eliquis use, head and C-spine CT was obtained, which were both negative for acute process. Patient able to walk in the ED without pain. Updated on findings in the ED, her pain is likely due to contusion. Will discharge to nursing facility, patient voiced understanding. Discussed methods to prevent falls in the future. Discharge Plan Discharge Clinical Leslie
[2022-04-03 17:20] VITALS: BP 121/65; PULSE 97; RESP 18; O2SAT 97
--- NOTE | 2022-04-03 17:27 | PC.NURSE ---
Report given to Sheridan the nurse at [facility].
== END 2022-04-03 17:22 ==
PROVIDERS: Emergency Provider Emergency Medicine; PCP Internal Medicine
DX: S09.90XA Unspecified injury of head, initial encounter (principal); S79.911A Unspecified injury of right hip, initial encounter; Z79.01 Long term (current) use of anticoagulants; M47.812 Spondylosis without myelopathy or radiculopathy, cervical region; W01.198A Fall on same level from slipping, tripping and stumbling with subsequent striking against other object, initial encounter
CPT/HCPCS: 70450; 72125; 73502; 99284

== ENCOUNTER 2022-06-16 14:27 | Emergency (ER) | payer MEDICARE, SELFPAY ==
[2022-06-16] VITALS (20 sets, daily range): BP systolic 116–134; BP diastolic 66–97; PULSE 95–106; RESP 14–29; TEMP 36.2; O2SAT 94–100
--- NOTE | ~2022-06-16 | US_ITS ---
EXAMINATION:US venous doppler LE INDICATION:Left leg pain and swelling TECHNIQUE: Multiple grayscale, color flow and Doppler images of the left lower extremity deep venous systems were obtained and reviewed. COMPARISON:Ultrasound dated 03/22/2020 FINDINGS: The common femoral, superficial femoral and popliteal veins demonstrate normal respiratory variation, augmentation and compressibility. Color flow is also seen within the posterior tibial, pe roneal, greater saphenous and profunda veins. IMPRESSION: 1: No lower extremity deep venous thrombosis. Reviewed, dictated and finalized at location A.
--- NOTE | ~2022-06-16 | CT_ITS ---
EXAMINATION: CTA chest PE protocol DATE: 06/16/2022 16:14 INDICATION: Chest pain TECHNIQUE: Computed tomography angiography (CTA) of the chest was performed with 100 mL Omnipaque-350 intravenous contrast timed to evaluate the pulmonary arteries. Coronal maximum intensity projection 3D-reconstructions were created by the technologist. Automated exposure control and iterative reconst ruction technique were employed. Exam dose: 466.53 mGy-cm total exam DLP. COMPARISON: 02/10/2022 CT pulmonary scan FINDINGS: There is diagnostic contrast enhancement of the pulmonary arteries and no evidence of pulmo nary embolism. There is chronic right apical and posteromedial right upper lung scarring and postoper ative change, stable in appearance since 02/10/2022. No significant new or developing mass is noted. Th e findings are likely due to scarring, possibly due to postradiation change. Residual or recurrent ma lignancy would likely be more confidently excluded by PET/CT imaging. There is aortic and great vessel calcification but no thoracic aortic aneurysm or dissection. Heart s ize is within normal limits. No pericardial or pleural effusion. Calcified left lower lobe pulmonary granuloma and calcified left hilar nodes consistent with old gran ulomatous disease. Normal morphology of the adrenal glands. Status post cholecystectomy. IMPRESSION: No evidence of pulmonary embolism Relatively stable right apical and upper lobe probable scarring and postoperative change since 02/11/20 22. Consider PET/CT imaging follow-up as clinically appropriate to more confidently exclude any resid ual or recurrent malignancy. Reviewed, dictated and finalized at Location A. Reviewed, dictated and finalized at location B. IMPRESSION: No evidence of pulmonary embolism Relatively stable right apical and upper lobe probable scarring and postoperati ve change since 02/10/2022. Consider PET/CT imaging follow-up as clinically appro priate to more confidently exclude any residual or recurrent malignancy.
--- NOTE | ~2022-06-16 | XR_ITS ---
XR ankle LT min 3V DATE: 06/16/2022 15:29 INDICATION: Left ankle pain TECHNIQUE: 4 views COMPARISON: None FINDINGS: There is prominent soft tissue swelling, greater laterally. No fracture or dislocation of t he ankle or disruption of the ankle mortise is detected. No periosteal reaction or bone destruction. Prominent plantar calcaneal enthesopathy. IMPRESSION: Soft tissue swelling, greater laterally No fracture or dislocation Prominent plantar calcaneal enthesopathy Reviewed, dictated and finalized at location B.
--- NOTE | ~2022-06-16 | XR_ITS ---
XR chest 2V DATE: 06/16/2022 15:29 INDICATION: Chest pain TECHNIQUE: PA and lateral views COMPARISON: 02/13/2022 portable AP chest 02/10/2022 CT pulmonary scan FINDINGS: There is prominent right upper lobe volume loss, elevation of the right hilum and right michelle phragm and prominent right apical capping. There is right perihilar infiltrate or mass. There may be residual malignancy versus scarring. Consider PET/CT imaging for more definitive evaluation. There is medial left lower lung infiltrate and/or atelectasis or scarring. The left lung is clear of infiltrate or consolidation otherwise. Normal heart size. Status post cholecystectomy. There is diffuse osteopenia. IMPRESSION: Chronic right upper lobe volume loss, prominent right apical capping, right hilar promine nce. The findings may be due to postoperative change and scarring, but residual or recurrent malignan cy is not excluded. Consider PET/CT imaging for further evaluation Mild infiltrate, atelectasis or scarring in the medial left lower lung Reviewed, dictated and finalized at location B. IMPRESSION: Chronic right upper lobe volume loss, prominent right apical cappin g, right hilar prominence. The findings may be due to postoperative change and scarring, but residual or recurrent malignancy is not excluded. Consider PET/CT imaging for further evaluation Mild infiltrate, atelectasis or scarring in the medial left lower lung
--- NOTE | 2022-06-16 14:29 | ECG_ITS ---
Measurements Intervals [place] Rate: 101 P: 44 HI: 220 QRS: 10 QRSD: 78 T: 41 QT: 329 QTc: 428 Interpretive Statements SINUS TACHYCARDIA WITH FIRST DEGREE AV BLOCK BASELINE ARTIFACT LOW QRS VOLTAGE IN PRECORDIAL LEADS BORDERLINE ECG COMPARED TO ECG 02/10/2022 21:30:58 FIRST DEGREE AV BLOCK NOW PRESENT Electronically Signed On 06-17-2022 13:22:00 CDT by Surendra Corrigan M.D.
--- NOTE | 2022-06-16 14:39 | ED.GENADULT ---
HPI - General Adult General Chief complaint: Chest Pain Stated complaint: cp since last night and after eating Time Seen by Provider: 06/16/22 14:29 Source: patient, EMS, RN notes reviewed and old records reviewed Mode of arrival: EMS Limitations: no limitations History of Present Illness HPI narrative: This is a 71 year old female with history of COPD, lung CA, pulmonary embolism who presents for evaluation of right chest wall tenderness and pain. Patient reports her pain started last night at 9 pm when she was getting ready for pain. Her pain is intermittent. She denies any associated trauma or fall. She has had a productive cough with yellow phlegm for 1 month . She also has chronic shortness of breath but she feels that it is getting worse. She denies associated nausea, vomiting, fever or chills. She has left ankle swelling for 1-2 weeks, and she denies any fall or trauma to cause her pain. She also reports right upper abodminal pain. She denies any urinary complaints. Related Data Home Medications Medication Instructions Recorded Confirmed acetaminophen 500 mg capsule 650 mg PO Q8H PRN Pain 09/23/19 02/11/22 baclofen 10 mg tablet 10 mg PO TID 09/23/19 02/11/22 calcium carbonate 500 mg-vitamin 1 tablet PO BID 09/23/19 02/11/22 D3 3.125 mcg (125 unit) tablet (Calcium) lidocaine HCl 4 % topical liquid 4 % topical PRN PRN Muscle Pain 09/23/19 02/11/22 roll-on (Aspercreme (lidocaine HCl)) lisinopril 20 1 tablet PO HS 09/23/19 02/11/22 mg-hydrochlorothiazide 12.5 mg tablet metformin 500 mg tablet 500 mg PO BID 09/23/19 02/11/22 omeprazole 40 mg capsule,delayed 40 mg PO DAILY 09/23/19 02/11/22 release pravastatin 40 mg tablet 40 mg PO HS 09/23/19 02/11/22 vitamin B complex 1 cap PO BID 09/23/19 02/11/22 allopurinol 100 mg tablet 300 mg PO DAILY 01/21/20 02/11/22 apixaban 5 mg tablet (Eliquis) 5 mg PO BID 01/21/20 02/11/22 fluticasone fur. 100 mcg-umeclid 1 inh inhalation DAILY 01/21/20 02/11/22 62.5 mcg-vilant 25 mcg inhalat.powder (Trelegy Ellipta) montelukast 10 mg tablet 10 mg PO HS 03/15/21 02/11/22 carboxymethylcellulose sodium 1 drp EACH EYE 4-6XD PRN Dry Eyes 12/27/21 02/11/22 (Refresh Contacts eye drops) albuterol sulfate 90 mcg/actuation 2 puff inhalation Q6H 02/11/22 02/11/22 aerosol inhaler (Ventolin HFA) Allergies Allergy/AdvReac Type Severity Reaction Status Date / Time diclofenac Allergy Severe sob Verified 06/16/22 14:37 Penicillins Allergy Intermediate Itching Verified 06/16/22 14:37 penicillin V Allergy Itching Verified 06/16/22 14:37 Review of Systems Review of Systems: All systems reviewed & are unremarkable except as noted in HPI and below Constitutional: Constitutional: Denies chills, Denies fatigue and Denies fever(s) ENT: Denies dizziness and Denies nasal congestion Cardiovascular: Cardiovascular: Reports chest pain and Denies radiating jaw, neck or arm pain Respiratory: Respiratory: Reports cough, Reports dyspnea and Denies wheezing Gastrointestinal: Gastrointestinal: Reports abdominal pain, Denies nausea and Denies vomiting Genitourinary: Genitourinary: Denies hematuria and Denies dysuria Musculoskeletal: Musculoskeletal: Denies back pain, Reports arthralgias and Reports joint swelling Neurologic: Denies focal weakness PMFSH Past Medical History Medical History Adenomatous colon polyp Arthritis Cancer lung and lymphnodes 2012 and 2014 COPD (chronic obstructive pulmonary disease) uses inhaler, right upper lobe removed lung cancer 2012;lower lobe and lymphnodes 2014 CVA (cerebral vascular accident) 06/2018 TPA administered and rehab-pt states now no residual effect Diabetes last A1C=5.9 (10/2019) DVT (deep venous thrombosis) GERD (gastroesophageal reflux disease) History of chemotherapy HTN (hypertension) Hx of pulmonary embolus Hx of radiation therapy Hypercholesterolemia Lung
[2022-06-16 14:59] LABS: Basophils Percent Auto 0.5 % (0.2-1.2); Eosinophils Absolute Auto 0.3 K/mm3 (0-0.3); Eosinophils Percent Auto 3.5 % (0-4.4); Hematocrit 37.3 % (37.0-47.0); Hemoglobin 11.6 g/dL (12.0-15.0); Immature Granulocyte Absolute 0.04 K/mm3 (0.00-0.031); Immature Granulocyte Percent A 0.5 % (0-0.5); Lymphocytes Absolute Auto 1.24 K/mm3 (0.9-3.2); Lymphocytes Percent Auto 16.6 % (18.3-44.2); Mean Corpuscular HGB Conc 31.1 g/dl (32-36); Mean Corpuscular Hemoglobin 30.8 pg (26-34); Mean Corpuscular Volume 98.9 fl (80-100); Mean Platelet Volume 9.6 fl (7.4-10.4); Monocytes Absolute Auto 0.7 K/mm3 (0.1-0.6); Monocytes Percent Auto 9.4 % (2.6-8.5); Neutrophils Absolute Auto 5.2 K/mm3 (1.3-6.7); Neutrophils Percent Auto 69.5 % (45.5-73.1); Platelet Count Result 250 k/mm3 (150-375); Red Blood Count 3.77 M/mm3 (4.2-5.4); Red Cell Distribution Width 14.5 % (11.5-14.5); White Blood Count 7.5 K/mm3 (4.5-10.0)
--- NOTE | 2022-06-16 15:00 | PC.NURSE ---
Pt going to ultrasound and xray at this time.
[2022-06-16 15:09] LABS: Alanine Aminotransferase 22 U/L (6-35); Albumin Level 4.3 g/dL (3.5-5.1); Alkaline Phosphatase 147 U/L (38-126); Anion Gap 8 mmol/L (8-16); Aspartate Amino Transferase 27 U/L (14-36); Bilirubin,Total 0.2 mg/dL (0.2-1.3); Blood Urea Nitrogen 27 mg/dL (7-17); Calcium 9.7 mg/dL (8.4-10.2); Carbon Dioxide 32 mmol/L (22-30); Chloride 97 mmol/L (98-107); Estimated CRCL calculation 45 ml/min; Estimated Glomerular Filt Rate 49; Glucose 106 mg/dL (65-110); Lipase 285 U/L (23-300); Potassium 4.5 mmol/L (3.4-5.0); Sodium 137 mmol/L (137-145)
[2022-06-16 15:10] LABS: INR 1.1; Prothrombin Time 13.9 Seconds (11.1-14.7)
[2022-06-16 15:11] LABS: Partial Thromboplastin Time 38.3 SECONDS (22.3-36.8)
[2022-06-16 15:14] LABS: Magnesium 1.7 mg/dL (1.6-2.3)
[2022-06-16 15:18] LABS: NT Pro B Type Natriuretic Pept 54 pg/mL (5-100)
[2022-06-16 15:21] LABS: Troponin I < 0.012 ng/mL (0.000-0.034)
[2022-06-16] MEDS: SODIUM CHLORIDE 0.9% IV 1,000 ML 999 ML IV CONT (15:36)
--- NOTE | 2022-06-16 16:08 | PC.NURSE ---
Pt to CT.
--- NOTE | 2022-06-16 16:46 | PC.NURSE ---
Dr. Mendoza at bedside to discuss results and treatment plan with pt.
[2022-06-16 18:03] LABS: Troponin I < 0.012 ng/mL (0.000-0.034)
== END 2022-06-16 18:37 ==
PROVIDERS: Preventive Medicine Aerospace Medicine; Emergency Provider General Practice; PCP Internal Medicine
DX: R07.89 Other chest pain (principal); J44.9 Chronic obstructive pulmonary disease, unspecified; E11.42 Type 2 diabetes mellitus with diabetic polyneuropathy; I10 Essential (primary) hypertension; E78.00 Pure hypercholesterolemia, unspecified; G47.30 Sleep apnea, unspecified; M17.12 Unilateral primary osteoarthritis, left knee; R06.02 Shortness of breath; M25.472 Effusion, left ankle; Z85.118 Personal history of other malignant neoplasm of bronchus and lung; Z86.73 Personal history of transient ischemic attack (TIA), and cerebral infarction without residual deficits; Z86.718 Personal history of other venous thrombosis and embolism; Z86.711 Personal history of pulmonary embolism; Z92.3 Personal history of irradiation; Z86.010 Personal history of colon polyps; Z90.2 Acquired absence of lung [part of]; Z90.710 Acquired absence of both cervix and uterus; Z96.651 Presence of right artificial knee joint; Z87.891 Personal history of nicotine dependence; Z79.84 Long term (current) use of oral hypoglycemic drugs; Z79.01 Long term (current) use of anticoagulants; R00.0 Tachycardia, unspecified; I44.0 Atrioventricular block, first degree; R94.31 Abnormal electrocardiogram [ECG] [EKG]; R91.8 Other nonspecific abnormal finding of lung field; M77.8 Other enthesopathies, not elsewhere classified
CPT/HCPCS: 36415; 71046; 71275; 73610; 80053; 83690; 83735; 83880; 84484; 85025; 85610; 85730; 93005; 93971; 96360; 99284; J7030; Q9967

== ENCOUNTER 2022-07-04 09:38 | Emergency (ER) | payer MEDICARE, SELFPAY ==
--- NOTE | ~2022-07-04 | XR_ITS ---
XR chest 2V DATE: 07/04/2022 10:27 INDICATION: Shortness of breath. History of COPD, lung cancer TECHNIQUE: AP, lateral views COMPARISON: 06/16/2022 CTA chest 06/16/2022 2 view chest FINDINGS: There is right partial pneumonectomy and prominent right apical capping and elevated right hilum and right hemidiaphragm, stable in appearance since 06/16/2022. No interval pulmonary infiltrate or consolidation, pleural effusion or pulmonary vascular congestion or pneumothorax. Normal heart size. IMPRESSION: No active disease or significant change since 06/16/2022 Status post right partial pneumonectomy for history of lung cancer Reviewed, dictated and finalized at location B.
[2022-07-04 09:43] VITALS: BP 117/74; PULSE 101; RESP 17; TEMP 36.3; O2SAT 100
--- NOTE | 2022-07-04 09:49 | ECG_ITS ---
Measurements Intervals [place] Rate: 98 P: 46 VA: 188 QRS: 5 QRSD: 90 T: 35 QT: 336 QTc: 429 Interpretive Statements SINUS RHYTHM LOW QRS VOLTAGE IN PRECORDIAL LEADS Electronically Signed On 07-04-2022 11:43:46 CDT by Guzman Buchanan M.D.
[2022-07-04 09:58] VITALS: PULSE 97
[2022-07-04 10:10] LABS: Basophils Percent Auto 0.6 % (0.2-1.2); Eosinophils Absolute Auto 0.2 K/mm3 (0-0.3); Eosinophils Percent Auto 2.7 % (0-4.4); Hematocrit 32.4 % (37.0-47.0); Hemoglobin 10.6 g/dL (12.0-15.0); Immature Granulocyte Absolute 0.04 K/mm3 (0.00-0.031); Immature Granulocyte Percent A 0.6 % (0-0.5); Lymphocytes Absolute Auto 0.78 K/mm3 (0.9-3.2); Lymphocytes Percent Auto 11.2 % (18.3-44.2); Mean Corpuscular HGB Conc 32.7 g/dl (32-36); Mean Corpuscular Hemoglobin 31.2 pg (26-34); Mean Corpuscular Volume 95.3 fl (80-100); Mean Platelet Volume 9.2 fl (7.4-10.4); Monocytes Absolute Auto 0.7 K/mm3 (0.1-0.6); Monocytes Percent Auto 10.2 % (2.6-8.5); Neutrophils Absolute Auto 5.2 K/mm3 (1.3-6.7); Neutrophils Percent Auto 74.7 % (45.5-73.1); Platelet Count Result 264 k/mm3 (150-375)
[2022-07-04 10:25] LABS: Alanine Aminotransferase 14 U/L (6-35); Albumin Level 3.6 g/dL (3.5-5.1); Alkaline Phosphatase 129 U/L (38-126); Anion Gap 10 mmol/L (8-16); Aspartate Amino Transferase 24 U/L (14-36); Bilirubin,Total 0.2 mg/dL (0.2-1.3); Blood Urea Nitrogen 15 mg/dL (7-17); Calcium 8.5 mg/dL (8.4-10.2); Carbon Dioxide 30 mmol/L (22-30); Chloride 98 mmol/L (98-107); Estimated CRCL calculation 54 ml/min; Estimated Glomerular Filt Rate > 60; Glucose 95 mg/dL (65-110); Potassium 3.4 mmol/L (3.4-5.0); Sodium 138 mmol/L (137-145)
--- NOTE | 2022-07-04 10:39 | ED.SOB ---
HPI - SOB/Dyspnea General Chief Complaint: Shortness of Breath/Dyspnea Stated Complaint: dyspnea with exertion Time Seen by Provider: 07/04/22 10:24 Source: patient and EMS Mode of arrival: EMS Limitations: no limitations History of Present Illness HPI Narrative: 71 years old white female came by ambulance from assisted living complaining of history of shortness of breath on exertion got worse over the last 2 days. She denies any fever, chills, nausea, vomiting, or chest pain. History of lung cancer, status postchemotherapy and radiation therapy 2017 and lobectomy. History of COVID infection 1 month ago. , Intermittent coughing. Ptient is not on oxygen and assisting living. Currently on Eliquis for deep vein thrombosis and pulmonary embolism. Related Data Home Medications Medication Instructions Recorded Confirmed acetaminophen 500 mg capsule 650 mg PO Q8H PRN Pain 09/23/19 02/11/22 baclofen 10 mg tablet 10 mg PO TID 09/23/19 02/11/22 calcium carbonate 500 mg-vitamin 1 tablet PO BID 09/23/19 02/11/22 D3 3.125 mcg (125 unit) tablet (Calcium) lidocaine HCl 4 % topical liquid 4 % topical PRN PRN Muscle Pain 09/23/19 02/11/22 roll-on (Aspercreme (lidocaine HCl)) lisinopril 20 1 tablet PO HS 09/23/19 02/11/22 mg-hydrochlorothiazide 12.5 mg tablet metformin 500 mg tablet 500 mg PO BID 09/23/19 02/11/22 omeprazole 40 mg capsule,delayed 40 mg PO DAILY 09/23/19 02/11/22 release pravastatin 40 mg tablet 40 mg PO HS 09/23/19 02/11/22 vitamin B complex 1 cap PO BID 09/23/19 02/11/22 allopurinol 100 mg tablet 300 mg PO DAILY 01/21/20 02/11/22 apixaban 5 mg tablet (Eliquis) 5 mg PO BID 01/21/20 02/11/22 fluticasone fur. 100 mcg-umeclid 1 inh inhalation DAILY 01/21/20 02/11/22 62.5 mcg-vilant 25 mcg inhalat.powder (Trelegy Ellipta) montelukast 10 mg tablet 10 mg PO HS 03/15/21 02/11/22 carboxymethylcellulose sodium 1 drp EACH EYE 4-6XD PRN Dry Eyes 12/27/21 02/11/22 (Refresh Contacts eye drops) albuterol sulfate 90 mcg/actuation 2 puff inhalation Q6H 02/11/22 02/11/22 aerosol inhaler (Ventolin HFA) Allergies Allergy/AdvReac Type Severity Reaction Status Date / Time diclofenac Allergy Severe sob Verified 07/04/22 09:50 Penicillins Allergy Intermediate Itching Verified 07/04/22 09:50 penicillin V Allergy Itching Verified 07/04/22 09:50 Review of Systems Review of Systems: All systems reviewed & are unremarkable except as noted in HPI and below PMFSH Past Medical History Medical History Adenomatous colon polyp Arthritis Cancer lung and lymphnodes 2012 and 2014 COPD (chronic obstructive pulmonary disease) uses inhaler, right upper lobe removed lung cancer 2012;lower lobe and lymphnodes 2014 CVA (cerebral vascular accident) 06/2018 TPA administered and rehab-pt states now no residual effect Diabetes last A1C=5.9 (10/2019) DVT (deep venous thrombosis) GERD (gastroesophageal reflux disease) History of chemotherapy HTN (hypertension) Hx of pulmonary embolus Hx of radiation therapy Hypercholesterolemia Lung cancer Neutropenia Obesity Osteoarthritis of left knee Peripheral neuropathy Port-A-Cath in place Shingles Sleep apnea Surgical History Surgical History History of dilatation and curettage History of endoscopy History of esophagogastroduodenoscopy (EGD) History of lobectomy of lung History of removal of Port-a-Cath History of right knee joint replacement 2014 History of total right knee replacement (TKR) Hx of cholecystectomy Hx of colonoscopy Hx of tonsillectomy Hx of total hysterectomy Family History Family History Mother Carcinoma of colon Cerebrovascular accident Father Family history of heart disease in male family member before age 55 Sibling Family history of hypercholesterolemia Hypertension Glaucoma Other Fami
[2022-07-04 10:53] VITALS: BP 118/64; PULSE 93; RESP 19; O2SAT 97
[2022-07-04 10:58] LABS: Alveolar/Arterial O2 Gradient 16.8 mmHg; Base Excess ABG 6.5 mEq/l (+/-2.0); Fractional Inspired Oxygen 21 %; HCO3 ABG 31.8 mEq/l (22.0-26.0); Oxygen Content ABG 15.5 %vol (16.0-22.0); Oxygen Saturation ABG 95.3 % (95.0-100.0); Oxyhemoglobin 93.6 % THb (90.0-100.0); PCO2 ABG 48.4 mmHg (35.0-45.0); PO2 FiO2 Ratio Arterial Blood 3.57 %; Total Hemoglobin 11.7 g/dL (12.0-18.0); pH ABG 7.435 (7.350-7.450)
[2022-07-04 10:59] LABS: Device ROOM AIR; Modified Allen's Test Pass; Site Drawn LEFT RADIAL
[2022-07-04 11:38] LABS: INR 1.3; Prothrombin Time 15.2 Seconds (11.1-14.7)
[2022-07-04 11:39] LABS: Partial Thromboplastin Time 42.8 SECONDS (22.3-36.8)
[2022-07-04 11:46] LABS: Lactic Acid Reflex 1.5 mmol/L (0.7-2.0)
[2022-07-04 11:49] LABS: CRP 6.9 mg/dL (<1.0)
[2022-07-04 11:56] LABS: NT Pro B Type Natriuretic Pept 128 pg/mL (5-100)
[2022-07-04 13:01] VITALS: BP 138/80; PULSE 104; RESP 20; O2SAT 98
== END 2022-07-04 13:25 ==
PROVIDERS: Emergency Provider Emergency Medicine; PCP Internal Medicine
DX: J44.9 Chronic obstructive pulmonary disease, unspecified (principal); U09.9 Post COVID-19 condition, unspecified; R94.31 Abnormal electrocardiogram [ECG] [EKG]; M19.90 Unspecified osteoarthritis, unspecified site; Z86.718 Personal history of other venous thrombosis and embolism; I10 Essential (primary) hypertension; G47.30 Sleep apnea, unspecified; Z86.73 Personal history of transient ischemic attack (TIA), and cerebral infarction without residual deficits; E11.9 Type 2 diabetes mellitus without complications; Z79.84 Long term (current) use of oral hypoglycemic drugs
CPT/HCPCS: 36415; 36600; 71046; 80053; 82805; 83605; 83880; 85025; 85610; 85730; 86140; 87040; 93005; 99284

== ENCOUNTER 2022-07-11 12:33 | Observation (INO) | payer MEDICARE, SELFPAY ==
[2022-07-11] VITALS (13 sets, daily range): BP systolic 111–144; BP diastolic 58–84; PULSE 78–116; RESP 18–25; TEMP 36.2–36.3; O2SAT 93–99; BMI 34.7
--- NOTE | ~2022-07-11 | XR_ITS ---
EXAMINATION: XR chest 2V DATE: 07/11/2022 13:46 INDICATION: Shortness of breath, cough and wheezing TECHNIQUE: frontal and lateral views of the chest were obtained. COMPARISON: Chest radiograph dated 07/04/[address] dated 06/16/2022 FINDINGS: Volume loss in the right hemithorax with elevation and tenting of the right hemidiaphragm. Suture remington e in the right upper lung zone consistent with prior pneumonectomy. Slight decrease in peripheral con solidation at the right apex. Elevation the right hemidiaphragm with no significant change in a spicu lated right suprahilar mass suggesting radiation fibrosis for treatment of a reported primary lung ca ncer. No other airspace opacities, pulmonary edema, pleural effusion or pneumothorax. Heart size is n ormal with slight rightward shift of the heart and mediastinum due to the volume loss in right hemith orax. Cholecystectomy clips in right upper quadrant. IMPRESSION: 1. No evident acute cardiopulmonary disease. 2. Volume loss in right hemithorax with change of prior partial right pneumonectomy in the upper lung zone 3. Unchanged right subhilar mass with some decrease in more peripheral consolidation at the right ape x likely representing radiation fibrosis and more peripheral atelectasis related to treatment of a re ported primary lung cancer. Reviewed, dictated and finalized at location A. IMPRESSION: 1. No evident acute cardiopulmonary disease. 2. Volume loss in right hemithorax with change of prior partial right pneumonec abby in the upper lung zone 3. 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
--- NOTE | 2022-07-11 12:43 | ECG_ITS ---
Measurements Intervals [place] Rate: 106 P: 50 ID: [id number] QRS: 14 QRSD: 94 T: 47 QT: 333 QTc: 443 Interpretive Statements SINUS TACHYCARDIA EARLY PRECORDIAL R/S TRANSITION LOW QRS VOLTAGE IN PRECORDIAL LEADS BASELINE ARTIFACT- I, II, III, AVR, AVL, AVF, V1-V2 BORDERLINE ECG COMPARED TO ECG 07/04/2022 09:51:34 SINUS TACHYCARDIA NOW PRESENT Electronically Signed On 07-11-2022 13:17:16 CDT by Simon Olivares D.O.
--- NOTE | 2022-07-11 12:46 | ED.SOB ---
HPI - SOB/Dyspnea General Chief Complaint: Shortness of Breath/Dyspnea <Cleoparta Gary PA-C - Last Filed: 07/11/22 17:44> Stated Complaint: SOB <Cleopatra Gary PA-C - Last Filed: 07/11/22 17:44> Time Seen by Provider: 07/11/22 12:44 <Cleopatra Gary PA-C - Last Filed: 07/11/22 17:44> History of Present Illness HPI Narrative: Patient is a 71-year-old female with a history of COPD and recent COVID infection, lung CA s/p lobectomy, radiation and chemo, PE/DVT on eliquis, here via ems from nursing facility for evaluation of shortness of breath for the past 3 weeks. Patient states that she is short of breath all the time, worse with exertion, has been having a productive cough. She was seen in the ER 2 weeks ago, was treated for COPD exacerbation with azithromycin and steroids but states that her symptoms are not better. Denies any leg swelling, chest pain, syncope, fevers. Had recent COVID infection 1.[address] Rikki Pedraza at [facility] for lung CA. She did choke on some soup about a month has not had aspiration events since; was told she shoudl f/u with GI specialist as she has hx of esophageal strictures requiring dilation x 2. <Cleopatra Gary PA-C - Last Filed: 07/11/22 17:44> Related Data Home Medications: Home Medications Medication Instructions Recorded Confirmed acetaminophen 500 mg capsule 650 mg PO Q8H PRN Pain 09/23/19 02/11/22 baclofen 10 mg tablet 10 mg PO TID 09/23/19 02/11/22 calcium carbonate 500 mg-vitamin 1 tablet PO BID 09/23/19 02/11/22 D3 3.125 mcg (125 unit) tablet (Calcium) lidocaine HCl 4 % topical liquid 4 % topical PRN PRN Muscle Pain 09/23/19 02/11/22 roll-on (Aspercreme (lidocaine HCl)) lisinopril 20 1 tablet PO HS 09/23/19 02/11/22 mg-hydrochlorothiazide 12.5 mg tablet metformin 500 mg tablet 500 mg PO BID 09/23/19 02/11/22 omeprazole 40 mg capsule,delayed 40 mg PO DAILY 09/23/19 02/11/22 release pravastatin 40 mg tablet 40 mg PO HS 09/23/19 02/11/22 vitamin B complex 1 cap PO BID 09/23/19 02/11/22 allopurinol 100 mg tablet 300 mg PO DAILY 01/21/20 02/11/22 apixaban 5 mg tablet (Eliquis) 5 mg PO BID 01/21/20 02/11/22 fluticasone fur. 100 mcg-umeclid 1 inh inhalation DAILY 01/21/20 02/11/22 62.5 mcg-vilant 25 mcg inhalat.powder (Trelegy Ellipta) montelukast 10 mg tablet 10 mg PO HS 03/15/21 02/11/22 carboxymethylcellulose sodium 1 drp EACH EYE 4-6XD PRN Dry Eyes 12/27/21 02/11/22 (Refresh Contacts eye drops) albuterol sulfate 90 mcg/actuation 2 puff inhalation Q6H 02/11/22 02/11/22 aerosol inhaler (Ventolin HFA) <JO ANN De Paz Last Filed: 07/11/22 17:44> Allergies/Adverse Reactions: Allergies Allergy/AdvReac Type Severity Reaction Status Date / Time diclofenac Allergy Severe sob Verified 07/11/22 15:09 Penicillins Allergy Intermediate Itching Verified 07/11/22 15:09 penicillin V Allergy Itching Verified 07/11/22 15:09 <JO ANN De Paz Last Filed: 07/11/22 17:44> Review of Systems Review of Systems: Gen: Denies fevers or chills Eyes: Denies eye pain or visual change ENT: Denies congestion Respiratory: Reports shortness of breath and cough. CV: Denies chest pain or palpitations GI: Denies abdominal pain nausea, emesis or diarrhea : denies burning, urgency, frequency or hematuria Musculoskeletal: Denies back pain or muscle pain Neuro: Denies numbness, tingling, weakness or focal weakness Skin: Denies rash Except as documented, all other systems reviewed and negative <JO ANN De Paz Last Filed: 07/11/22 17:44> [facility] Past Medical History Medical History: Medical History Adenomatous colon polyp Arthritis Cancer lung and lymphnodes 2012 and 2014 COPD (chronic obstructive pulmonary disease) uses inhaler, right upper lobe removed lung cancer 2012;lower lobe and lymphnodes 2014 CVA (
[2022-07-11] MEDS: ALBUTEROL SULFATE NEB 2.5 MG/3 ML INH INHALATION ×2 (12:54→21:25)
[2022-07-11 13:15] LABS: Basophils Percent Auto 0.5 % (0.2-1.2); Eosinophils Absolute Auto 0.2 K/mm3 (0-0.3); Hematocrit 36.6 % (37.0-47.0); Hemoglobin 11.4 g/dL (12.0-15.0); Immature Granulocyte Absolute 0.04 K/mm3 (0.00-0.031); Immature Granulocyte Percent A 0.5 % (0-0.5); Lymphocytes Absolute Auto 0.89 K/mm3 (0.9-3.2); Lymphocytes Percent Auto 11.7 % (18.3-44.2); Mean Corpuscular HGB Conc 31.1 g/dl (32-36); Mean Corpuscular Hemoglobin 30.2 pg (26-34); Mean Corpuscular Volume 97.1 fl (80-100); Monocytes Absolute Auto 0.6 K/mm3 (0.1-0.6); Monocytes Percent Auto 8.1 % (2.6-8.5); Neutrophils Absolute Auto 5.9 K/mm3 (1.3-6.7); Neutrophils Percent Auto 77.2 % (45.5-73.1); Platelet Count Result 264 k/mm3 (150-375); Red Blood Count 3.77 M/mm3 (4.2-5.4); Red Cell Distribution Width 13.9 % (11.5-14.5); White Blood Count 7.6 K/mm3 (4.5-10.0)
[2022-07-11 13:18] LABS: Alanine Aminotransferase 17 U/L (6-35); Albumin Level 3.8 g/dL (3.5-5.1); Alkaline Phosphatase 127 U/L (38-126); Anion Gap 8 mmol/L (8-16); Aspartate Amino Transferase 23 U/L (14-36); Bilirubin,Total 0.4 mg/dL (0.2-1.3); Blood Urea Nitrogen 18 mg/dL (7-17); Calcium 9.1 mg/dL (8.4-10.2); Carbon Dioxide 30 mmol/L (22-30); Chloride 98 mmol/L (98-107); Estimated CRCL calculation 50 ml/min; Estimated Glomerular Filt Rate 54; Glucose 113 mg/dL (65-110); Potassium 3.4 mmol/L (3.4-5.0); Sodium 136 mmol/L (137-145)
[2022-07-11 13:19] LABS: Lactic Acid Reflex 2.3 mmol/L (0.7-2.0)
[2022-07-11 13:21] LABS: D Dimer 0.48 ug/mL (<0.48)
[2022-07-11 13:24] LABS: Base Excess ABG 3.3 mEq/l (+/-2.0); Fractional Inspired Oxygen 21 %; HCO3 ABG 27.3 mEq/l (22.0-26.0); Oxygen Content ABG 17.4 %vol (16.0-22.0); Oxygen Saturation ABG 99.6 % (95.0-100.0); Oxyhemoglobin 97.6 % THb (90.0-100.0); PCO2 ABG 39.6 mmHg (35.0-45.0); PO2 ABG 241.2 mmHg (80.0-100.0); Total Hemoglobin 12.3 g/dL (12.0-18.0); pH ABG 7.457 (7.350-7.450)
[2022-07-11] MEDS: ALBUTEROL SULFATE NEB 2.5 MG/3 ML INH (13:24)
[2022-07-11 13:28] LABS: Device ROOM AIR; Modified Allen's Test Pass; Site Drawn RIGHT RADIAL
[2022-07-11 13:30] LABS: NT Pro B Type Natriuretic Pept 93 pg/mL (5-100); Troponin I < 0.012 ng/mL (0.000-0.034)
--- NOTE | 2022-07-11 14:06 | PC.NURSE ---
Pt breath sounds improved after breathing treatment but wheezing still heard. Provider made aware.
[2022-07-11] MEDS: SODIUM CHLORIDE 0.9% IV 1,000 ML 999 ML IV CONT (14:12)
[2022-07-11] MEDS: methylPREDNISolone SOD SUCC 125 MG VIAL IV PUSH (15:08)
[2022-07-11 16:05] LABS: Reflex Lactic Acid Yes or No Add Lactic
--- NOTE | 2022-07-11 16:06 | PM.IMHP ---
H&P: HPI History of Present Illness Date/Time: 07/11/22 16:06 Chief Complaint: Shortness of breath Narrative: This is a 71-year-old female patient with a history of COPD, lung cancer status post lobectomy, radiation and chemotherapy, and PE/ DVT on Eliquis. The patient comes from [facility] today. She has been seen in the ER 2 weeks ago was treated for COPD exacerbation with azithromycin and steroids. She stated that her symptoms are not getting any better. She denies any fever chills. She denies any leg swelling chest pain syncope or fevers. She had COVID infection 1.5 months ago. She sees Dr. Rikki OLSON at [facility] for lung cancer. She no longer gets any treatment for her lung cancer. She has also been seen for esophageal strictures in the past with dilatation x2. Chest x-ray was read as the following 1.No evident acute cardiopulmonary disease. 2. Volume loss in right hemithorax with change of prior partial right pneumonectomy in the upper lung zone 3. Unchanged right subhilar mass with some decrease in more peripheral consolidation at the right apex likely representing radiation fibrosis and more peripheral atelectasis related to treatment of a reported primary lung cancer. Her H&H is 11.4 and 36.6 which is around her baseline. ABGs pH 7.457. PO2 241.2. Lactic was 2.3 and is now 1.8. Patient was given albuterol treatment, IV fluids, Solu-Medrol and Levaquin. Initially the patient was admitted to inpatient and then changed to observation on the date of service of 07/11/2022. Review of Systems Review of Systems: See HPI All systems reviewed & are unremarkable except as noted in HPI and below Constitutional: Constitutional: Reports as per HPI and Reports no additional constitutional complaints Eyes: Eyes: Reports as per HPI and Reports no additional eye complaints ENT: Reports system reviewed and no additional complaints, except as documented and Reports Normal hearing present Cardiovascular: Cardiovascular: Reports no additional cardiovascular complaints Respiratory: Respiratory: Reports no additional respiratory complaints and Reports no additional respiratory complaints Gastrointestinal: Gastrointestinal: Reports as per HPI and Reports no additional gastrointestinal complaints Musculoskeletal: Musculoskeletal: Reports no additional musculoskeletal complaints Integumentary/Breasts: Skin/Breast: Reports system reviewed and no additional complaints, except as docu and Reports as per HPI Neurologic: Reports system reviewed and no additional complaints, except as documented, Reports as per HPI and Reports Normal hearing present Psychiatric: Psychiatric: Reports no additional psychiatric complaints and Reports as per HPI Endocrine: Endocrine: Reports no additional endocrine complaints Hematologic/Lymphatic: Hematologic/Lymphatic: Reports no additional hematologic/lymphatic complaints Allergic/Immunologic: Allergic/Immunologic: Reports no additional allergic/immunologic complaints [facility] Past Medical History Medical History (Updated 07/11/22 @ 18:33 by Chelly Mariscal NP) Adenomatous colon polyp Arthritis Cancer lung and lymphnodes 2012 and 2014 COPD (chronic obstructive pulmonary disease) uses inhaler, right upper lobe removed lung cancer 2012;lower lobe and lymphnodes 2014 CVA (cerebral vascular accident) 06/2018 TPA administered and rehab-pt states now no residual effect Diabetes last A1C=5.9 (10/2019) DVT (deep venous thrombosis) GERD (gastroesophageal reflux disease) History of chemotherapy HTN (hypertension) Hx of pulmonary embolus Hx of radiation therapy Hypercholesterolemia Lung cancer Neutropenia Obesity Osteoarthritis of left knee Peripheral neuropathy Shingles Sleep apnea Surgical History Surgical History History of dilatation and curettage History of endoscopy History of esophagogastroduodenoscopy (EGD) History of lobect
[2022-07-11 17:01] LABS: Lactic Acid 1.8 mmol/L (0.7-2.0)
--- NOTE | 2022-07-11 17:16 | PC.NURSE ---
This patient, Zoe Hogue Dia, was admitted to Medical Room 348-01. Patient/family oriented to hospital policies and general routines including ID bracelet, bed and alarms, visiting hours, pain management, procedures, bathroom and other care routines, personal items, smoking policy, room service/diet, and visiting hours. Information on how to activate the Rapid Response Team has been discussed. Patient/Family are encouraged to report perceived risks to care and to ask questions if they do not understand what they are told or what they should do.
[2022-07-11] MEDS: hydroCHLOROthiazide 12.5 MG CAPSULE PO (20:21)
[2022-07-11] MEDS: lisinopriL 20 MG TABLET PO (20:21)
[2022-07-11 20:48] LABS: Glucose Point of Care 227 mg/dl (65-105)
[2022-07-11] MEDS: IPRATROPIUM BR 0.02% INH SOLN 0.5 MG/2.5 ML VIAL INHALATION (21:25)
[2022-07-11] MEDS: MONTELUKAST SODIUM 10 MG TABLET PO (21:25)
[2022-07-11] MEDS: BACLOFEN 10 MG TABLET PO (21:25)
[2022-07-11] MEDS: methylPREDNISolone SOD SUCC 125 MG VIAL 60 MG IV PUSH (23:35)
[2022-07-11] MEDS: LIDOCAINE 5% PATCH 2 PATCH TRANSDERM (23:37)
[2022-07-12] VITALS (7 sets, daily range): BP systolic 140; BP diastolic 65; PULSE 93–119; RESP 18–20; TEMP 36.3; O2SAT 94–98
[2022-07-12] MEDS: IPRATROPIUM BR 0.02% INH SOLN 0.5 MG/2.5 ML VIAL INHALATION ×2 (02:12→11:09)
[2022-07-12] MEDS: ALBUTEROL SULFATE NEB 2.5 MG/3 ML INH INHALATION ×2 (02:12→11:09)
[2022-07-12 05:31] LABS: Hematocrit 34.3 % (37.0-47.0); Immature Granulocyte Absolute 0.05 K/mm3 (0.00-0.031); Lymphocytes Absolute Auto 0.37 K/mm3 (0.9-3.2); Lymphocytes Percent Auto 7.5 % (18.3-44.2); Mean Corpuscular HGB Conc 32.1 g/dl (32-36); Mean Corpuscular Hemoglobin 30.4 pg (26-34); Mean Corpuscular Volume 94.8 fl (80-100); Mean Platelet Volume 9.4 fl (7.4-10.4); Monocytes Percent Auto 0.4 % (2.6-8.5); Neutrophils Absolute Auto 4.5 K/mm3 (1.3-6.7); Neutrophils Percent Auto 91.1 % (45.5-73.1); Platelet Count Result 241 k/mm3 (150-375); Red Blood Count 3.62 M/mm3 (4.2-5.4); Red Cell Distribution Width 13.7 % (11.5-14.5)
[2022-07-12 05:37] LABS: Lactic Acid Reflex 1.6 mmol/L (0.7-2.0)
[2022-07-12 05:41] LABS: Alanine Aminotransferase 16 U/L (6-35); Albumin Level 3.6 g/dL (3.5-5.1); Alkaline Phosphatase 136 U/L (38-126); Anion Gap 11 mmol/L (8-16); Aspartate Amino Transferase 21 U/L (14-36); Bilirubin,Total 0.2 mg/dL (0.2-1.3); Blood Urea Nitrogen 16 mg/dL (7-17); CRP 3.6 mg/dL (<1.0); Calcium 8.8 mg/dL (8.4-10.2); Carbon Dioxide 26 mmol/L (22-30); Chloride 99 mmol/L (98-107); Estimated CRCL calculation 62 ml/min; Estimated Glomerular Filt Rate > 60; Glucose 208 mg/dL (65-110); Magnesium 1.7 mg/dL (1.6-2.3); Potassium 3.3 mmol/L (3.4-5.0); Sodium 136 mmol/L (137-145)
[2022-07-12] MEDS: methylPREDNISolone SOD SUCC 125 MG VIAL 60 MG IV PUSH ×2 (06:01→12:28)
[2022-07-12 08:23] LABS: Glucose Point of Care 188 mg/dl (65-105)
[2022-07-12] MEDS: PANTOPRAZOLE 40 MG TABLET PO (09:01)
[2022-07-12] MEDS: allopurinoL 300 MG TABLET PO (09:02)
[2022-07-12] MEDS: MAGNESIUM OXIDE 400 MG TABLET PO (09:02)
[2022-07-12] MEDS: BACLOFEN 10 MG TABLET PO ×2 (09:02→12:27)
[2022-07-12] MEDS: LIDOCAINE 5% PATCH 2 PATCH TRANSDERM (10:52)
[2022-07-12] MEDS: CALCIUM CARBONATE (OSCAL) 500 MG TABLET PO (10:53)
[2022-07-12] MEDS: VITAMIN B COMPLEX CAPSULE 1 CAP PO (10:53)
[2022-07-12] MEDS: PRAVASTATIN SODIUM 20 MG TABLET 40 MG PO (10:54)
[2022-07-12] MEDS: APIXABAN 5 MG TABLET PO (10:54)
[2022-07-12] MEDS: FLUTICASONE/UMECLIDIN/VILANTER 100-62.5-25 MCG ELLIPTA 1 PUFF INHALATION (11:10)
[2022-07-12 12:07] LABS: Glucose Point of Care 298 mg/dl (65-105)
--- NOTE | 2022-07-12 12:20 | PM.DS ---
DS: Admitting Diagnosis Discharge Date July 12, 2020 Admitting Diagnosis COPD DS: Discharge Diagnosis Discharge Diagnosis (1) COPD (chronic obstructive pulmonary disease): Qualifiers: COPD type: unspecified COPD Qualified Code(s): J44.9 - Chronic obstructive pulmonary disease, unspecified Code(s): J44.9 - Chronic obstructive pulmonary disease, unspecified Status: Chronic Assessment and Plan: antibiotics and prednisone on discharge (2) Diabetes: Code(s): E11.9 - Type 2 diabetes mellitus without complications Status: Acute Assessment and Plan: -Accu-Cheks AC and HS -holding metformin -sliding scale insulin (3) Hx of pulmonary embolus: Code(s): Z86.711 - Personal history of pulmonary embolism Status: Acute Assessment and Plan: -continue with Eliquis (4) HTN (hypertension): Qualifiers: Hypertension type: unspecified Qualified Code(s): I10 - Essential (primary) hypertension Code(s): I10 - Essential (primary) hypertension Status: Chronic Assessment and Plan: -continue with lisinopril with hydrochlorothiazide (5) Hypercholesterolemia: Code(s): E78.00 - Pure hypercholesterolemia, unspecified Status: Chronic Assessment and Plan: -continue with pravastatin DS: Summary Hospital Course Hospital Course: patient is a 71-year-old female who has a history of COPD. She came in with some shortness of breath found to be in COPD exacerbation. She was also started on Levaquin. When I saw the patient today she was actually sitting up in bed she had been walking around her room she had no complaints of shortness of breath she said she was over 90% better. She had no chest pain or chest tightness. She is stable and can be discharged back to facility and she will need to continue antibiotics and prednisone on dischar Time Spent with Patient Time attestation: Total time spent providing and/or coordinating discharge services: Exam Const: General: cooperative, healthy appearing, comfortable, no acute distress, well developed, alert, awake and Physically active Nutritional Appearance: average body habitus and well nourished Orientation/consciousness: oriented to person, oriented to place, oriented to time and patient oriented x3 Limitations: no limitations HENMT: Head: normal to inspection, No palpable skull fracture present, normocephalic and atraumatic Ears: hearing grossly normal bilaterally and external ears normal General nose exam: Normal external nose present and Normal nares present Eyes: General: appearance normal, both eyes and all related structures Alignment and Position: alignment normal Periorbital: periorbital findings normal Eyelids: eyelids normal Sclera: sclerae normal Pupils: Equal, round and reactive pupils present EOM: EOMs intact bilaterally Neck: Neck: normal visual inspection, full ROM, no lymphadenopathy, trachea midline and supple Chest: Chest palpation & inspection: normal inspection of the chest Resp: Effort & Inspection: normal respiratory effort Auscultation: wheezes lower bilaterally Cardio: Palpation: normal PMI Rate: regular rate and tachycardic Rhythm: regular rhythm Heart sounds: S1 normal heart sound present and S2 normal heart sound present Peripheral pulses: Peripheral pulses 2+ throughout GI: Inspection: normal to inspection Auscultation: normal bowel sounds Rectal Exam: deferred Back/Spine/Pelvis: Cervical Spine: cervical ROM normal Skin: General skin exam: normal color Lesions: no lesions Rashes: no rashes Trauma: no lacerations or abrasions Wounds: no wounds Hair: normal Nails: normal Neuro: General: oriented to person, oriented to place, oriented to time and patient oriented x3 Cranial nerves: Yes Equal, round and reactive pupils present and Yes Normal hearing present Cognition (Neuro): normal cognition Speech: normal speech Motor exam (neuro):
[2022-07-12] MEDS: INSULIN ASPART (*BKC) 100 UNITS/ML SUB-Q (12:24)
== END 2022-07-12 14:25 ==
LOC: ANHED 12:45 → ANH3MED 07-12 08:36
PROVIDERS: Nurse Practitioner; Physician Assistant; Admitting Provider Internal Medicine; Emergency Provider Emergency Medicine; PCP Internal Medicine; Visit Provider Chiropractor
DX: J44.9 Chronic obstructive pulmonary disease, unspecified (principal); E11.42 Type 2 diabetes mellitus with diabetic polyneuropathy; Z86.711 Personal history of pulmonary embolism; I10 Essential (primary) hypertension; E78.00 Pure hypercholesterolemia, unspecified; R06.02 Shortness of breath; Z86.16 Personal history of COVID-19; Z85.118 Personal history of other malignant neoplasm of bronchus and lung; Z90.2 Acquired absence of lung [part of]; R05.9 Cough, unspecified; K22.2 Esophageal obstruction; K21.9 Gastro-esophageal reflux disease without esophagitis; G47.30 Sleep apnea, unspecified; M17.12 Unilateral primary osteoarthritis, left knee; R00.0 Tachycardia, unspecified; Z96.651 Presence of right artificial knee joint; Z92.21 Personal history of antineoplastic chemotherapy; Z92.3 Personal history of irradiation; Z86.718 Personal history of other venous thrombosis and embolism; Z86.73 Personal history of transient ischemic attack (TIA), and cerebral infarction without residual deficits; Z79.899 Other long term (current) drug therapy; Z87.891 Personal history of nicotine dependence; Z79.1 Long term (current) use of non-steroidal anti-inflammatories (NSAID); Z79.84 Long term (current) use of oral hypoglycemic drugs; Z79.01 Long term (current) use of anticoagulants; Z79.51 Long term (current) use of inhaled steroids; Z80.0 Family history of malignant neoplasm of digestive organs; Z82.3 Family history of stroke; Z84.89 Family history of other specified conditions; Z82.49 Family history of ischemic heart disease and other diseases of the circulatory system; Z83.511 Family history of glaucoma; Z80.52 Family history of malignant neoplasm of bladder; Z80.8 Family history of malignant neoplasm of other organs or systems
CPT/HCPCS: 36415; 36600; 71046; 80053; 82805; 82948; 83605; 83735; 83880; 84484; 85025; 85380; 86140; 87040; 93005; 94640; 96365; 96375; 96376; 99285; A9270; G0378; J1815; J1956; J2930; J7030

== ENCOUNTER → 2022-08-17 09:52 | Outpatient (CLI) | payer MEDICARE, SELFPAY ==
--- NOTE | ~2022-08-17 | MM_ITS ---
EXAMINATION: MM screening adriana BI w gloria HISTORY: Screening TECHNIQUE: Craniocaudal and mediolateral oblique 3-D tomosynthesis images were obtained and synthetic 2-D images were generated. CAD analysis was submitted and interpreted. COMPARISON: Comparison to multiple prior studies sequentially, with oldest reviewed study dated 02/02. BREAST PARENCHYMAL COMPOSITION: There are scattered areas of fibroglandular density. FINDINGS: There is no evidence of suspicious mass, calcification, or architectural distortion to sugg est malignancy in either breast. There has been no suspicious interval change. IMPRESSION: 1. No mammographic evidence of malignancy. 2. Recommend routine screening mammography in one year. BI-RADS Category 1: Negative Reviewed, dictated and finalized at location A.
== END ==
PROVIDERS: PCP Internal Medicine; Visit Provider Obstetrics & Gynecology Gynecology
DX: Z12.31 Encounter for screening mammogram for malignant neoplasm of breast (principal)
CPT/HCPCS: 77063; 77067

== ENCOUNTER 2022-11-18 07:48 | Emergency (ER) | payer MEDICARE, SELFPAY ==
[2022-11-18] VITALS (13 sets, daily range): BP systolic 110–135; BP diastolic 64–88; PULSE 102–110; RESP 14–31; TEMP 36.5; O2SAT 80–99
--- NOTE | ~2022-11-18 | XR_ITS ---
EXAMINATION: XR hip RT 2V w AP pelvis INDICATION: Right hip pain TECHNIQUE: AP view of the pelvis and two views of the right hip are obtained. COMPARISON: 04/03/2022 FINDINGS: Bone alignment is normal. There is no fracture. There is mild osteoarthritis of the hips. C alcified atherosclerosis is noted. IMPRESSION: 1. Osteoarthritis without acute osseous abnormality. Reviewed, dictated and finalized at location F. [employer]
--- NOTE | ~2022-11-18 | XR_ITS ---
EXAMINATION: XR knee RT 3V DATE: 11/18/2022 09:44 INDICATION: Right knee pain TECHNIQUE: Three views of the right knee were obtained. COMPARISON: 02/11/2022 FINDINGS: Bone alignment is normal. Arthroplasty of the medial compartment is again noted. There is n o fracture. Joint spaces are normal with no erosions. No joint effusion/synovitis. Soft tissues are unremarkable. IMPRESSION: 1. No acute osseous abnormality. Reviewed, dictated and finalized at location F. R [employer]
--- NOTE | ~2022-11-18 | US_ITS ---
US venous doppler LE RT DATE: 11/18/2022 09:02 INDICATION: Right lower extremity pain TECHNIQUE: Real-time and color flow imaging and Doppler analysis of the veins of the right lower extr emity COMPARISON: None FINDINGS: The greater saphenous vein is patent. There is spontaneous and phasic flow and normal augme ntation and color flow signal and normal compression of the deep veins of the right lower extremity. IMPRESSION: No evidence of deep venous thrombosis of right lower extremity Reviewed, dictated and finalized at Location A. Reviewed, dictated and finalized at location A. [employer]
[2022-11-18 08:12] LABS: Basophils Percent Auto 0.5 % (0.2-1.2); Eosinophils Absolute Auto 0.2 K/mm3 (0-0.3); Eosinophils Percent Auto 3.3 % (0-4.4); Hematocrit 37.1 % (37.0-47.0); Immature Granulocyte Absolute 0.04 K/mm3 (0.00-0.031); Immature Granulocyte Percent A 0.7 % (0-0.5); Lymphocytes Absolute Auto 0.57 K/mm3 (0.9-3.2); Lymphocytes Percent Auto 10.3 % (18.3-44.2); Mean Corpuscular HGB Conc 32.3 g/dl (32-36); Mean Corpuscular Hemoglobin 31.1 pg (26-34); Mean Corpuscular Volume 96.1 fl (80-100); Mean Platelet Volume 9.3 fl (7.4-10.4); Monocytes Absolute Auto 0.4 K/mm3 (0.1-0.6); Monocytes Percent Auto 6.7 % (2.6-8.5); Neutrophils Absolute Auto 4.3 K/mm3 (1.3-6.7); Neutrophils Percent Auto 78.5 % (45.5-73.1); Platelet Count Result 249 k/mm3 (150-375); Red Blood Count 3.86 M/mm3 (4.2-5.4); Red Cell Distribution Width 13.7 % (11.5-14.5); White Blood Count 5.5 K/mm3 (4.5-10.0)
[2022-11-18 08:22] LABS: INR 1.1; Prothrombin Time 14.2 Seconds (11.1-14.7)
[2022-11-18 08:23] LABS: Anion Gap 6 mmol/L (8-16); Blood Urea Nitrogen 22 mg/dL (7-17); Calcium 9.3 mg/dL (8.4-10.2); Carbon Dioxide 32 mmol/L (22-30); Chloride 102 mmol/L (98-107); Estimated CRCL calculation 45 ml/min; Estimated Glomerular Filt Rate 49; Glucose 105 mg/dL (65-110); Partial Thromboplastin Time 43.7 SECONDS (22.3-36.8); Potassium 4.1 mmol/L (3.4-5.0); Sodium 140 mmol/L (137-145)
--- NOTE | 2022-11-18 09:08 | ED.EXTPRO ---
HPI - Extremity Problem General Chief complaint: Extremity Problem,Nontraumatic Stated complaint: LE pain, hx blood clots Time Seen by Provider: 11/18/22 07:51 Source: patient and EMS Mode of arrival: EMS Limitations: no limitations History of Present Illness HPI Narrative: 72 years old white female came from assisted living with by ambulance complaining of pain at the lower extremities from the groin all the way down to the feet for months got worse over the last couple days mainly right lower extremity. Patient denies any trauma. Patient uses a walker, she denies any fever, chills, nausea, vomiting. History of deep vein thrombosis for years on Eliquis. History of diabetes, hypertension, hyperlipidemia, COPD, and partial right knee replacement and peripheral neuropathy. she does not smoke or drink or uses drugs. Patient did not eat her breakfast or taken her morning medication prior to arrival. Related Data Home Medications Medication Instructions Recorded Confirmed baclofen 10 mg tablet 10 mg PO TID PRN Hiccups 09/23/19 07/26/22 lisinopril 20 1 tablet PO HS 09/23/19 07/26/22 mg-hydrochlorothiazide 12.5 mg tablet metformin 500 mg tablet 500 mg PO BID 09/23/19 07/26/22 omeprazole 40 mg capsule,delayed 40 mg PO DAILY 09/23/19 07/26/22 release pravastatin 40 mg tablet 40 mg PO DAILY 09/23/19 07/26/22 vitamin B complex 1 cap PO BID 09/23/19 07/26/22 allopurinol 100 mg tablet 300 mg PO DAILY 01/21/20 07/26/22 apixaban 5 mg tablet (Eliquis) 5 mg PO BID 01/21/20 07/26/22 fluticasone fur. 100 mcg-umeclid 1 inh inhalation DAILY 01/21/20 07/26/22 62.5 mcg-vilant 25 mcg inhalat.powder (Trelegy Ellipta) calcium 500 mg tablet 500 mg PO BID 07/11/22 07/26/22 trazodone 50 mg tablet mg 11/18/22 triamcinolone acetonide 0.1 % 1 applic topical 11/18/22 topical cream Allergies Allergy/AdvReac Type Severity Reaction Status Date / Time diclofenac Allergy Severe sob Verified 07/26/22 10:12 Penicillins Allergy Intermediate Itching Verified 07/26/22 10:12 penicillin V Allergy Itching Verified 07/26/22 10:12 Review of Systems Review of Systems: All systems reviewed & are unremarkable except as noted in HPI and below PMFSH Past Medical History Medical History Adenomatous colon polyp Arthritis Cancer lung and lymphnodes 2012 and 2014 COPD (chronic obstructive pulmonary disease) uses inhaler, right upper lobe removed lung cancer 2012;lower lobe and lymphnodes 2014 CVA (cerebral vascular accident) 06/2018 TPA administered and rehab-pt states now no residual effect Diabetes last A1C=5.9 (10/2019) DVT (deep venous thrombosis) GERD (gastroesophageal reflux disease) History of chemotherapy HTN (hypertension) Hx of pulmonary embolus Hx of radiation therapy Hypercholesterolemia Lung cancer Neutropenia Obesity Osteoarthritis of left knee Peripheral neuropathy Shingles Sleep apnea Surgical History Surgical History History of dilatation and curettage History of endoscopy History of esophagogastroduodenoscopy (EGD) History of lobectomy of lung History of removal of Port-a-Cath History of right knee joint replacement 2014 History of total right knee replacement (TKR) Hx of cholecystectomy Hx of colonoscopy Hx of tonsillectomy Hx of total hysterectomy Family History Family History Mother Carcinoma of colon Cerebrovascular accident Father Family history of heart disease in male family member before age 55 Sibling Family history of hypercholesterolemia Hypertension Glaucoma Other Family history of lung cancer Family history of malignant neoplasm of bone Family history of malignant neoplasm of urinary bladder Social History Social History Social History: She is . She has no children. Her
[2022-11-18 09:39] LABS: Alanine Aminotransferase 23 U/L (6-35); Albumin Level 4.1 g/dL (3.5-5.1); Alkaline Phosphatase 156 U/L (38-126); Aspartate Amino Transferase 30 U/L (14-36); Bilirubin,Total 0.2 mg/dL (0.2-1.3); Creatine Kinase 55 U/L (30-135)
[2022-11-18 11:02] LABS: Erythrocyte Sedimentation Rate 124 mm/hr (0-20)
[2022-11-18] MEDS: HYDROcodone/acetaminophen (*CRX) 5-325 MG TABLET 1 TAB PO (11:04)
== END 2022-11-18 11:19 ==
PROVIDERS: Emergency Provider Emergency Medicine; PCP Internal Medicine
DX: M70.61 Trochanteric bursitis, right hip (principal); E11.42 Type 2 diabetes mellitus with diabetic polyneuropathy; I10 Essential (primary) hypertension; J44.9 Chronic obstructive pulmonary disease, unspecified; E78.00 Pure hypercholesterolemia, unspecified; K21.9 Gastro-esophageal reflux disease without esophagitis; M17.12 Unilateral primary osteoarthritis, left knee; G47.30 Sleep apnea, unspecified; Z96.651 Presence of right artificial knee joint; Z85.118 Personal history of other malignant neoplasm of bronchus and lung; Z85.79 Personal history of other malignant neoplasms of lymphoid, hematopoietic and related tissues; Z86.73 Personal history of transient ischemic attack (TIA), and cerebral infarction without residual deficits; Z86.718 Personal history of other venous thrombosis and embolism; Z86.711 Personal history of pulmonary embolism; Z86.010 Personal history of colon polyps; Z92.21 Personal history of antineoplastic chemotherapy; Z92.3 Personal history of irradiation; Z90.2 Acquired absence of lung [part of]; Z90.710 Acquired absence of both cervix and uterus; Z87.891 Personal history of nicotine dependence; Z79.84 Long term (current) use of oral hypoglycemic drugs; Z79.01 Long term (current) use of anticoagulants; M16.11 Unilateral primary osteoarthritis, right hip
CPT/HCPCS: 36415; 73502; 73562; 80048; 80076; 82550; 85025; 85610; 85652; 85730; 93971; 99284; A9270

== ENCOUNTER 2022-12-06 09:21 | Outpatient (CLI) | payer MEDICARE, SELFPAY ==
--- NOTE | ~2022-12-06 | US_ITS ---
EXAMINATION: US knee asp inj w image RT DATE: 12/06/2022 12:21 INDICATION: Unilateral primary osteoarthritis of the left knee with pain. Arthrocentesis requested. TECHNIQUE: The procedure including the risks and benefits was discussed with the patient. Risks discu ssed included bleeding and infection. The patient understood the risks and agreed to proceed. The sk in overlying the lateral side of the suprapatellar pouch of the right knee was prepped and draped in usual sterile fashion. Anesthetic was administered with 1% lidocaine subcutaneously. A 21 gauge spin al needle was advanced under continuous ultrasound observation into the small amount of joint fluid. 7 mL of clear viscous straw-colored fluid was aspirated and sent to the lab for studies as ordered by the referring physician. The needle was removed and the entry site was cleaned and dressed. Post p rocedure ultrasound demonstrated no hemorrhage. FINDINGS: Ultrasound images demonstrate a small amount fluid at the suprapatellar pouch of the right knee. There is also a 3.1 x 1.2 x 0.9 cm Haro's cyst at the right popliteal fossa. Final images demo nstrate the needle for aspiration of the right knee joint effusion with tip position within the fluid at the suprapatellar pouch. IMPRESSION: 1. Successful Ultrasound-guided right knee arthrocentesis. 2. Small right Haro's cyst. Reviewed, dictated and finalized at location A. GER ADULT
[2022-12-06 14:33] LABS: Appearance Synovial Fluid Hazy (Clear); Color Synovial Fluid Yellow (Colorless); Crystals Synovial Fluid None Seen (None Seen); Lymphocytes Synovial Fluid 73 %; Monocytes Synovial Fluid 10 %; Neutrophils Synovial Fluid 3 % (0-25); Source Synovial Fluid Synovial fluid
[2022-12-06 14:34] LABS: Other Cells Synovial Fluid 14 %
[2022-12-06 14:41] LABS: RBC Synovial Fluid 344 /uL (0-0)
[2022-12-06 14:42] LABS: Nucleated Cell Synovial Fluid 54 /uL (0-200)
== END 2022-12-06 09:22 | disposition home or self-care (01) ==
LOC: ANHIMG 09:23
PROVIDERS: PCP Internal Medicine; Visit Provider Nurse Practitioner
DX: M79.604 Pain in right leg (principal); M17.12 Unilateral primary osteoarthritis, left knee; M71.21 Synovial cyst of popliteal space [Baker], right knee
CPT/HCPCS: 20611; 87070; 87075; 87205; 89051; 89060

== ENCOUNTER 2023-01-22 11:54 | Outpatient (CLI) | payer MEDICARE, SELFPAY ==
--- NOTE | ~2023-01-22 | XR_ITS ---
XR lumbar spine min 4V DATE: 01/22/2023 13:23 INDICATION: Back pain TECHNIQUE: AP, lateral, coned lateral lumbosacral and bilateral oblique views COMPARISON: 02/11/2022 CT lumbar spine FINDINGS: There is osteopenia. There is degenerative change at the apophyseal joints particularly L4-5 and L5-S1 with associated min imal grade 1 anterolisthesis at L4-5. There is severe degenerative disc disease including loss of interspace height, vacuum phenomenon and degenerative spurring at L5-S1. There is mild degenerative disc disease at the remaining interspaces. Included lower thoracic and lumbar pedicles are intact. No fracture or bone destruction or spondyloli sthesis. The sacroiliac joints are intact. There is extensive calcification of the abdominal aorta, without evidence of aneurysm, as well as pro minent calcification of the common iliac arteries. Status post cholecystectomy. IMPRESSION: Degenerative changes including severe degenerative disc disease at L5-S1 Reviewed, dictated and finalized at location B.
--- NOTE | ~2023-01-22 | XR_ITS ---
XR hand BI arthritis min 3V DATE: 01/22/2023 13:23 INDICATION: Chronic bilateral hand pain TECHNIQUE: 4 views of each hand COMPARISON: None FINDINGS: There is polyarticular osteoarthritis involving both hands including particularly the first carpometacarpal, first metacarpophalangeal and multiple interphalangeal joints, right greater than l eft. No fracture, dislocation, periosteal reaction or bone destruction, erosive change or chondrocalcinosi s. IMPRESSION: Polyarticular osteoarthritis, right greater than left Reviewed, dictated and finalized at location B.
--- NOTE | ~2023-01-22 | XR_ITS ---
XR foot RT standing 2V DATE: 01/22/2023 13:23 INDICATION: Right foot pain TECHNIQUE: Weightbearing AP and lateral views COMPARISON: None FINDINGS: There is dorsal soft tissue swelling of the foot. Prominent plantar calcaneal enthesopathy without associated erosive change or periostitis. Hallux valgus and bunion deformity. Mild osteoarthritic change at the first metatarsophalangeal joint . No fracture, dislocation, periosteal reaction or bone destruction, erosive change. IMPRESSION: Dorsal soft tissue swelling Plantar calcaneal enthesopathy Hallux valgus and bunion deformity Mild osteoarthritic change at first metatarsophalangeal joint Reviewed, dictated and finalized at location B.
--- NOTE | ~2023-01-22 | XR_ITS ---
XR foot LT standing 2V DATE: 01/22/2023 13:23 INDICATION: Foot pain TECHNIQUE: Weightbearing AP and lateral views COMPARISON: None FINDINGS: Pes planus. Prominent plantar calcaneal enthesopathy without associated erosive change or periostitis. There is moderate osteoarthritic change at the first metatarsophalangeal joint. Hallux valgus and bun ion deformity. No fracture, dislocation, periosteal reaction or bone destruction is detected. IMPRESSION: Pes planus Plantar calcaneal enthesopathy Osteoarthritis at first metatarsophalangeal joint Hallux valgus and bunion deformity Reviewed, dictated and finalized at location B.
[2023-01-22 14:23] LABS: Hemoglobin 12.4 g/dL (12.0-15.0); Mean Corpuscular HGB Conc 31.8 g/dl (32-36); Mean Corpuscular Hemoglobin 30.7 pg (26-34); Mean Corpuscular Volume 96.5 fl (80-100); Mean Platelet Volume 9.7 fl (7.4-10.4); Platelet Count Result 251 k/mm3 (150-375); Red Blood Count 4.04 M/mm3 (4.2-5.4); Red Cell Distribution Width 14.6 % (11.5-14.5); White Blood Count 6.6 K/mm3 (4.5-10.0)
[2023-01-22 14:42] LABS: Alanine Aminotransferase 22 U/L (6-35); Albumin Level 4.7 g/dL (3.5-5.1); Alkaline Phosphatase 165 U/L (38-126); Anion Gap 8 mmol/L (8-16); Aspartate Amino Transferase 29 U/L (14-36); Bilirubin,Total 0.5 mg/dL (0.2-1.3); Blood Urea Nitrogen 18 mg/dL (7-17); CRP 1.5 mg/dL (<1.0); Calcium 9.5 mg/dL (8.4-10.2); Carbon Dioxide 30 mmol/L (22-30); Chloride 104 mmol/L (98-107); Estimated Glomerular Filt Rate > 60; Glucose 94 mg/dL (65-110); Potassium 3.8 mmol/L (3.4-5.0); Sodium 142 mmol/L (137-145); Uric Acid 4.4 mg/dL (2.5-7.5)
[2023-01-22 16:04] LABS: Erythrocyte Sedimentation Rate 80 mm/hr (0-20)
[2023-01-22 16:08] LABS: Appearance Urine Clear (Clear); Bilirubin Urine Negative (Negative); Blood Urine Trace-lysed (Negative); Color Urine Yellow (Yellow); Glucose Urine UA Negative (Negative); Ketones Urine Negative (Negative); Leukocyte Esterase Ur Negative LEU/UL (Negative); Nitrate Urine Negative (Negative); Protein Urine Trace mg/dL (Negative); Specific Grav Ur 1.025 (1.001-1.035); Urobilinogen Urine 0.2 mg/dL (<2.0)
[2023-01-22 16:15] LABS: Add Urine Microscopic? YES
[2023-01-22 16:16] LABS: RBC Urine 21-50 /hpf (0-2); WBC Urine 0-3 /hpf (0-3)
[2023-01-22 16:17] LABS: Squamous Epithelial Cell Urine Moderate /hpf (Few)
[2023-01-22 16:18] LABS: Bacteria Urine 2+ /hpf
[2023-01-26 11:50] LABS: Anti Cyclic Citrullinated Pept <16 Units (<20)
== END 2023-01-22 11:55 | disposition home or self-care (01) ==
PROVIDERS: PCP Internal Medicine; Visit Provider Internal Medicine
DX: C34.90 Malignant neoplasm of unspecified part of unspecified bronchus or lung (principal); R89.9 Unspecified abnormal finding in specimens from other organs, systems and tissues; R70.0 Elevated erythrocyte sedimentation rate; J44.9 Chronic obstructive pulmonary disease, unspecified; I63.9 Cerebral infarction, unspecified; M79.89 Other specified soft tissue disorders; M77.31 Calcaneal spur, right foot; M20.12 Hallux valgus (acquired), left foot; M20.11 Hallux valgus (acquired), right foot; M21.612 Bunion of left foot; M19.072 Primary osteoarthritis, left ankle and foot; M19.071 Primary osteoarthritis, right ankle and foot; M21.42 Flat foot [pes planus] (acquired), left foot; M51.37 Other intervertebral disc degeneration, lumbosacral region; E55.9 Vitamin D deficiency, unspecified
CPT/HCPCS: 36415; 72110; 73130; 73620; 80053; 81001; 82306; 84550; 85027; 85652; 86140; 86200

== ENCOUNTER 2023-02-14 18:19 | Emergency (ER) | payer MEDICARE, SELFPAY ==
--- NOTE | ~2023-02-14 | XR_ITS ---
EXAM: XR hip RT 2V w AP pelvis DATE: 02/14/2023 21:33 HISTORY: R hip pain lateral s/p fall . COMPARISON: 11/18/2022. FINDINGS: Normal mineralization. No fracture or dislocation. No lytic or blastic lesion. Mild degene rative changes in the lumbar spine and bilateral hips. No erosion or periosteal change. Atherosclerot ic calcifications. IMPRESSION: No acute osseous finding in the pelvis or right hip. Reviewed, dictated and finalized at location K.
--- NOTE | ~2023-02-14 | XR_ITS ---
EXAM: XR knee LT min 4V DATE: 02/14/2023 21:33 HISTORY: knee pain s/p fall, bruising/abraison present . COMPARISON: 11/28/2022. FINDINGS: Normal mineralization. No fracture or dislocation. No lytic or blastic lesion. Tricompartm ental osteoarthritis, severe in the medial compartment. Chronic calcifications anteriorly, likely vas cular No erosion or periosteal change. Mild anterior soft tissue swelling. IMPRESSION: No acute osseous finding in the left knee. Reviewed, dictated and finalized at location K.
--- NOTE | ~2023-02-14 | XR_ITS ---
EXAM: XR knee RT min 4V DATE: 02/14/2023 21:33 HISTORY: knee pain s/p fall . COMPARISON: 11/18/2022. FINDINGS: Uncomplicated appearing right medial compartment hemiarthroplasty. Normal mineralization. No fracture or dislocation. No lytic or blastic lesion. Moderate degenerative change in the patellofe moral and lateral compartments. No erosion or periosteal change. Anterior soft tissue swelling. Moder ate joint effusion. IMPRESSION: No acute osseous finding in the right knee. Reviewed, dictated and finalized at location K.
[2023-02-14 18:50] VITALS: BP 148/81; PULSE 92; RESP 18; TEMP 36.4; O2SAT 96
--- NOTE | 2023-02-14 21:50 | ED.LOWEXIN ---
HPI - Extremity Injury (Lower) General Chief Complaint: Extremity Injury, Lower Stated Complaint: fall Time Seen by Provider: 02/14/23 20:44 Source: patient Mode of arrival: EMS Limitations: no limitations History of Present Illness HPI Narrative: Patient is a 72-year-old female who presents to the ED via EMS with report of a fall. Patient is a resident of [facility]. She reports she stood up out of her wheelchair and tried to lift a box from the ground to her bed when she lost her balance. She fell backwards onto the bed and then forward, hitting her knees against her dresser. She denied any head injury or LOC. She was able to stand up after the fall and ambulate back to her wheelchair. Patient complains of pain to her bilateral knees and right hip. Denies any abdominal pain, nausea, vomiting, dizziness, lightheadedness, prodromal symptoms prior to the fall, chest pain, difficulty breathing, numbness. Related Data Home Medications Medication Instructions Recorded Confirmed baclofen 10 mg tablet 10 mg PO TID PRN Hiccups 09/23/19 01/29/23 metformin 500 mg tablet 500 mg PO BID 09/23/19 01/29/23 omeprazole 40 mg capsule,delayed 40 mg PO DAILY 09/23/19 01/29/23 release pravastatin 40 mg tablet 40 mg PO DAILY 09/23/19 01/29/23 vitamin B complex 1 cap PO BID 09/23/19 01/29/23 allopurinol 100 mg tablet 300 mg PO DAILY 01/21/20 01/29/23 apixaban 5 mg tablet (Eliquis) 5 mg PO BID 01/21/20 01/29/23 calcium 500 mg tablet 500 mg PO BID 07/11/22 01/29/23 triamcinolone acetonide 0.1 % 1 applic topical 11/18/22 01/29/23 topical cream montelukast 10 mg tablet 10 mg PO DAILY 11/28/22 01/29/23 fluticasone fur. 200 mcg-umeclid 1 inh inhalation DAILY 01/29/23 01/29/23 62.5 mcg-vilant 25 mcg inhalat.powder (Trelegy Ellipta) torsemide 5 mg tablet 5 mg PO QAM 01/29/23 01/29/23 Allergies Allergy/AdvReac Type Severity Reaction Status Date / Time diclofenac Allergy Severe sob Verified 01/29/23 09:15 Penicillins Allergy Intermediate Itching Verified 01/29/23 09:15 penicillin V Allergy Itching Verified 01/29/23 09:15 Review of Systems Review of Systems: CONSTITUTIONAL: Denies fever, chills, or sweats. CARDIOVASCULAR: Denies chest pain. RESPIRATORY: Denies dyspnea. GASTROINTESTINAL: Denies abdominal pain, nausea, vomiting. MUSCULOSKELETAL: See HPI. NEUROLOGIC: See HPI. All systems reviewed & are unremarkable except as noted in HPI and below [facility] Past Medical History Medical History Adenomatous colon polyp Arthritis Cancer lung and lymphnodes 2012 and 2014 COPD (chronic obstructive pulmonary disease) uses inhaler, right upper lobe removed lung cancer 2012;lower lobe and lymphnodes 2014 CVA (cerebral vascular accident) 06/2018 TPA administered and rehab-pt states now no residual effect Diabetes last A1C=5.9 (10/2019) DVT (deep venous thrombosis) ESR raised ESR raised GERD (gastroesophageal reflux disease) History of chemotherapy HTN (hypertension) Hx of pulmonary embolus Hx of radiation therapy Hypercholesterolemia Inflammatory arthritis Lung cancer Neutropenia Obesity Osteoarthritis of left knee Peripheral neuropathy Shingles Sleep apnea Surgical History Surgical History History of dilatation and curettage History of endoscopy History of esophagogastroduodenoscopy (EGD) History of lobectomy of lung History of removal of Port-a-Cath History of right knee joint replacement 2014 History of total right knee replacement (TKR) Hx of cholecystectomy Hx of colonoscopy Hx of tonsillectomy Hx of total hysterectomy Family History Family History Mother Carcinoma of colon Cerebrovascular accident Father Family history of heart disease in male family member before age 55 Sibling Family history of hypercholesterolemia Hypertension
== END 2023-02-14 22:59 ==
PROVIDERS: Emergency Provider Physician Assistant; PCP Internal Medicine
DX: S83.92XA Sprain of unspecified site of left knee, initial encounter (principal); S83.91XA Sprain of unspecified site of right knee, initial encounter; J44.9 Chronic obstructive pulmonary disease, unspecified; E11.42 Type 2 diabetes mellitus with diabetic polyneuropathy; E78.00 Pure hypercholesterolemia, unspecified; K21.9 Gastro-esophageal reflux disease without esophagitis; M17.12 Unilateral primary osteoarthritis, left knee; Z86.010 Personal history of colon polyps; Z86.73 Personal history of transient ischemic attack (TIA), and cerebral infarction without residual deficits; Z85.118 Personal history of other malignant neoplasm of bronchus and lung; Z85.79 Personal history of other malignant neoplasms of lymphoid, hematopoietic and related tissues; Z86.718 Personal history of other venous thrombosis and embolism; Z86.711 Personal history of pulmonary embolism; Z92.3 Personal history of irradiation; Z87.891 Personal history of nicotine dependence; Z96.651 Presence of right artificial knee joint; Z90.2 Acquired absence of lung [part of]; Z90.710 Acquired absence of both cervix and uterus; Z79.84 Long term (current) use of oral hypoglycemic drugs; W18.39XA Other fall on same level, initial encounter
CPT/HCPCS: 73502; 73564; 99284

== ENCOUNTER 2023-02-18 08:57 | Inpatient (IN) | payer MEDICARE, SELFPAY ==
[2023-02-18] VITALS (25 sets, daily range): BP systolic 122–145; BP diastolic 52–88; PULSE 63–103; RESP 18–20; TEMP 36.4–36.8; O2SAT 90–97
--- NOTE | ~2023-02-18 | CT_ITS ---
EXAMINATION: CT brain wo con INDICATION: Head injury COMPARISON: 04/03/2022 TECHNIQUE: Standard unenhanced head CT. The dose-length product (DLP) was 605.33 mGy-cm. The mA was a djusted according to patient size. Iterative reconstruction technique was employed. FINDINGS: There is no acute intraparenchymal hemorrhage. No evidence of mass lesion. No evidence of a cute infarction. There is mild periventricular and subcortical hypodensity probably related to small vessel ischemic disease. There is mild prominence of the sulci and ventricles related to cerebral atr ophy. Intracranial calcified cerebral atherosclerosis is noted. There are no extra-axial collections. There is no mass effect or midline shift. The orbits and soft tissues are unremarkable. There are sm all mastoid effusions. IMPRESSION: 1. No acute intracranial abnormality. 2. Age related findings. Reviewed, dictated and finalized at location A.
--- NOTE | ~2023-02-18 | US_ITS ---
Limited Pelvic ultrasound. Clinical History: Distention Technique: Realtime transabdominal scanning of the pelvis was performed. Findings: Urinary bladder is collapsed, limiting evaluation. No free fluid seen. No abnormal mass les ion seen. Uterus and ovaries are not visualized. Impression: No significant abnormality seen. Collapsed urinary bladder limits evaluation. Reviewed, dictated and finalized at [facility]. Impression: No significant abnormality seen. Collapsed urinary bladder limits evaluation.
--- NOTE | ~2023-02-18 | CT_ITS ---
EXAMINATION: CT abdomen pelvis w con INDICATION: Right-sided abdominal pain after fall TECHNIQUE: Computed tomographic images of the abdomen and pelvis were obtained after the administrati on of 100 cc of Omnipaque 350 intravenous contrast. The dose-length product (DLP) was 1486.55 mGy-cm. Automated exposure control and iterative reconstruction technique were employed. COMPARISON: 11/18/2022 FINDINGS: There appears to be a nondisplaced lateral fracture of the right 10th rib. There is moderat e lumbar spondylosis. There are stable airspace opacities of the visualized lung bases. The heart s ize is normal. The gallbladder is surgically absent. The liver, spleen, pancreas, and adrenal glands are normal. The kidneys are unremarkable. There is calcified atherosclerosis of the aorta and many of the other arteries. No pathologically enlarged abdominal or pelvic lymph nodes are identified. Colon ic diverticulosis is present without evidence of diverticulitis. IMPRESSION: 1. Probable nondisplaced fracture at the lateral aspect of the right 10th rib. 2. No acute cardiopulmonary abnormality. Reviewed, dictated and finalized at location A.
--- NOTE | ~2023-02-18 | XR_ITS ---
EXAMINATION: XR shoulder RT min 2V INDICATION: Right shoulder pain TECHNIQUE: Four views of the right shoulder are submitted. COMPARISON: None FINDINGS: Normal alignment. No fracture. There is mild osteoarthritis of the acromioclavicular and gl enohumeral joints. Surgical changes are noted in the right upper lung zone. IMPRESSION: 1. No acute osseous abnormality. Reviewed, dictated and finalized at location A.
--- NOTE | ~2023-02-18 | XR_ITS ---
EXAMINATION: XR hip BI 2V w AP pelvis DATE: 02/18/2023 10:46 INDICATION: Hip pain after fall TECHNIQUE: AP view the pelvis and two views of each hip were obtained. COMPARISON: CT from today FINDINGS: Bone alignment is normal. There is no fracture. There is mild osteoarthritis of the hips. C alcified atherosclerosis is noted. Contrast from earlier CT partially opacifies the urinary tract. IMPRESSION: 1. No acute osseous abnormality. Reviewed, dictated and finalized at location A.
--- NOTE | ~2023-02-18 | XR_ITS ---
EXAMINATION: XR ankle LT 2V DATE: 02/18/2023 10:45 INDICATION: Left ankle pain TECHNIQUE: Two views of the left ankle are obtained. COMPARISON: 06/16/2022 FINDINGS: Bone alignment is normal. There is no fracture. There is chronic left ankle swelling. Mild osteoarthritis is noted. There is a plantar calcaneal enthesophyte. IMPRESSION: 1. No acute osseous abnormality. Reviewed, dictated and finalized at location A.
--- NOTE | ~2023-02-18 | CT_ITS ---
EXAMINATION: CT thoracic spine wo con DATE: 02/18/2023 10:32 INDICATION: Back pain after fall TECHNIQUE: Computed tomography (CT) of the thoracic spine was performed without intravenous contrast. The dose-length product (DLP) was 1250.98 mGy-cm. Iterative reconstruction was used. COMPARISON: None FINDINGS: Bone alignment is normal. There is no fracture. There is mild loss of intervertebral disc s pace height at several levels of the thoracic spine. The vertebral body heights are maintained. There are changes of partial right pneumonectomy. Airspace opacities in the right perihilar region and med ial right upper thorax likely related to treatment change. IMPRESSION: 1. Mild thoracic spondylosis without acute findings. Reviewed, dictated and finalized at location A.
--- NOTE | ~2023-02-18 | XR_ITS ---
EXAMINATION: XR chest 1V portable INDICATION: Right chest pain TECHNIQUE: Portable AP chest at 1235 hours COMPARISON: 07/11/2022 FINDINGS: The suspected right 10th rib fracture described on CT is not well demonstrated. The lungs a re free of acute opacities. There are changes of partial right pneumonectomy with chronic right perih ilar and upper lobe scarring. No pleural effusion or pneumothorax. IMPRESSION: 1. No acute cardiopulmonary abnormality. Reviewed, dictated and finalized at location A.
--- NOTE | ~2023-02-18 | XR_ITS ---
EXAMINATION: XR ankle RT 2V INDICATION: Right ankle pain TECHNIQUE: Two views of the right ankle are obtained. COMPARISON: None available FINDINGS: Bone alignment is normal. There is no fracture. There is soft tissue swelling of ankle. Mil d osteoarthritis is noted. There is a plantar calcaneal enthesophyte. IMPRESSION: 1. No acute osseous abnormality. Reviewed, dictated and finalized at location A.
--- NOTE | 2023-02-18 09:24 | ED.FALL ---
HPI - Fall General Chief Complaint: Fall <Niels Friedman PA-C - Last Filed: 02/18/23 17:58> Stated Complaint: tripped and fell last night, low back pain <Niels Friedman PA-C - Last Filed: 02/18/23 17:58> Time Seen by Provider: 02/18/23 09:09 <Niels Friedman PA-C - Last Filed: 02/18/23 17:58> Source: patient <JO ANN Gaytan Last Filed: 02/18/23 17:58> Mode of arrival: ambulatory <Niels Friedman PA-C - Last Filed: 02/18/23 17:58> Limitations: no limitations <Niels Friedman PA-C - Last Filed: 02/18/23 17:58> History of Present Illness HPI Narrative: This is a 72-year-old female with PMH of OA, DM, COPD, HTN, CVA [facility] with chief complaint of a mechanical fall occurring last night. Patient states that she was trying to take off her shirt when she had a misstep with a shirt over her head. She is able to recall the entire event of the fall and afterwards. States she fell onto her right side. She called for help with her life alert and the [facility] staff were able to help her in a couple of minutes to get back to bed. She states she has had continued low back pain this morning so they called EMS. She denies head injury, LOC or any further site of injury. She does take regular Eliquis. <Niels Friedman PA-C - Last Filed: 02/18/23 17:58> Related Data Home Medications: Home Medications Medication Instructions Recorded Confirmed baclofen 10 mg tablet 10 mg PO TID PRN Hiccups 09/23/19 02/18/23 metformin 500 mg tablet 500 mg PO BID 09/23/19 01/29/23 omeprazole 40 mg capsule,delayed 40 mg PO DAILY 09/23/19 01/29/23 release pravastatin 40 mg tablet 40 mg PO DAILY 09/23/19 01/29/23 vitamin B complex 1 cap PO BID 09/23/19 01/29/23 allopurinol 100 mg tablet 300 mg PO DAILY 01/21/20 01/29/23 apixaban 5 mg tablet (Eliquis) 5 mg PO BID 01/21/20 02/18/23 calcium 500 mg tablet 500 mg PO BID 07/11/22 01/29/23 triamcinolone acetonide 0.1 % 1 applic topical 11/18/22 01/29/23 topical cream montelukast 10 mg tablet 10 mg PO DAILY 11/28/22 01/29/23 fluticasone fur. 200 mcg-umeclid 1 inh inhalation DAILY 01/29/23 01/29/23 62.5 mcg-vilant 25 mcg inhalat.powder (Trelegy Ellipta) torsemide 5 mg tablet 5 mg PO QAM 01/29/23 01/29/23 lisinopril 20 1 tablet PO HS 02/18/23 02/18/23 mg-hydrochlorothiazide 12.5 mg tablet <Niels Friedman PA-C - Last Filed: 02/18/23 17:58> Allergies/Adverse Reactions: Allergies Allergy/AdvReac Type Severity Reaction Status Date / Time diclofenac Allergy Severe sob Verified 02/18/23 09:02 Penicillins Allergy Intermediate Itching Verified 02/18/23 09:02 penicillin V Allergy Itching Verified 02/18/23 09:02 <Niels Friedman PA-C - Last Filed: 02/18/23 17:58> Review of Systems Review of Systems: CONSTITUTIONAL: Denies fever, chills, or sweats. EYES: Denies visual changes, redness, or discharge. ENT: Denies rhinorrhea, congestion, sore throat, or otalgia. CARDIOVASCULAR: Denies chest pain, palpitations, or edema. RESPIRATORY: Denies cough or dyspnea. GASTROINTESTINAL: Denies abdominal pain, nausea, vomiting, or diarrhea. GENITOURINARY: Denies dysuria or hematuria. SKIN: Denies rash or itching. MUSCULOSKELETAL: See HPI NEUROLOGIC: Denies headache, numbness, dizziness, or weakness. Denies LOC PSYCHIATRIC: Denies anxiety or depression. <JO ANN Gaytan Last Filed: 02/18/23 17:58> PMFSH Past Medical History Medical History: Medical History Adenomatous colon polyp Arthritis Cancer lung and lymphnodes 2012 and 2014 COPD (chronic obstructive pulmonary disease) uses inhaler, right upper lobe removed lung cancer 2012;lower lobe and lymphnodes 2014 CVA (cerebral vascular accident) 06/2018 TPA administered and rehab-pt states now no residual effect Diabetes last A1C=5.9 (10/2019) DVT (deep venous thrombosis) ESR raised ESR raised GERD (gastr
[2023-02-18] MEDS: HYDROcodone/acetaminophen (*CRX) 7.5-325 MG TABLET 1 TAB PO (09:54)
[2023-02-18 10:13] LABS: Estimated CRCL calculation 50 ml/min; Estimated Glomerular Filt Rate 54
[2023-02-18 13:00] LABS: Basophils Percent Auto 0.6 % (0.2-1.2); Eosinophils Absolute Auto 0.2 K/mm3 (0-0.3); Eosinophils Percent Auto 2.5 % (0-4.4); Hematocrit 38.6 % (37.0-47.0); Hemoglobin 11.8 g/dL (12.0-15.0); Immature Granulocyte Absolute 0.02 K/mm3 (0.00-0.031); Immature Granulocyte Percent A 0.3 % (0-0.5); Lymphocytes Absolute Auto 0.98 K/mm3 (0.9-3.2); Lymphocytes Percent Auto 15.3 % (18.3-44.2); Mean Corpuscular HGB Conc 30.6 g/dl (32-36); Mean Corpuscular Hemoglobin 29.6 pg (26-34); Mean Corpuscular Volume 96.7 fl (80-100); Mean Platelet Volume 9.5 fl (7.4-10.4); Monocytes Absolute Auto 0.6 K/mm3 (0.1-0.6); Monocytes Percent Auto 9.2 % (2.6-8.5); Neutrophils Absolute Auto 4.6 K/mm3 (1.3-6.7); Neutrophils Percent Auto 72.1 % (45.5-73.1); Platelet Count Result 212 k/mm3 (150-375); Red Blood Count 3.99 M/mm3 (4.2-5.4); Red Cell Distribution Width 14.3 % (11.5-14.5); White Blood Count 6.4 K/mm3 (4.5-10.0)
[2023-02-18 13:04] LABS: Alanine Aminotransferase 21 U/L (6-35); Albumin Level 3.9 g/dL (3.5-5.1); Alkaline Phosphatase 128 U/L (38-126); Anion Gap 0 mmol/L (8-16); Aspartate Amino Transferase 30 U/L (14-36); Bilirubin,Total 0.6 mg/dL (0.2-1.3); Blood Urea Nitrogen 13 mg/dL (7-17); Calcium 8.7 mg/dL (8.4-10.2); Carbon Dioxide 33 mmol/L (22-30); Chloride 104 mmol/L (98-107); Estimated CRCL calculation 61 ml/min; Estimated Glomerular Filt Rate > 60; Glucose 83 mg/dL (65-110); Potassium 4.3 mmol/L (3.4-5.0); Sodium 137 mmol/L (137-145)
[2023-02-18 14:44] LABS: Appearance Urine Clear (Clear); Bacteria Urine None Seen /hpf; Bilirubin Urine Negative (Negative); Blood Urine 1+ (Negative); Color Urine Yellow (Yellow); Glucose Urine UA Negative (Negative); Ketones Urine Negative (Negative); Leukocyte Esterase Ur Negative LEU/UL (Negative); Need Manual Microscopic Reviewed; Nitrate Urine Negative (Negative); Non Pathogenic Casts 0-2; Protein Urine Negative (Negative); Squamous Epithelial Cell Urine None seen /hpf (Few); Urobilinogen Urine 0.2 mg/dL (<2.0); WBC Urine 0-5 /hpf; pH Urine 6.5 (5.0-9.0)
[2023-02-18 14:46] LABS: Add Urine Microscopic? YES; Specific Grav Ur 1.047 (1.001-1.035)
--- NOTE | 2023-02-18 16:37 | PM.IMHP ---
H&P: HPI History of Present Illness Date/Time: 02/18/23 16:37 Chief Complaint: Fall Narrative: This is a 72-year-old female patient who has a history osteoarthritis, diabetes, COPD hypertension and CVA. The patient came to the emergency room today from [facility] living with mechanical fall that occurred last night. She has a bruise to the left knee. She stated that she was trying to take off for sure when she had a misstep with assure overhead. The patient stated that she fell onto her right side. She called for help with her Life Alert and the nursing staff with air within a couple minutes to get her back to bed. Patient continue to complain of lower back pain this morning and she called EMS. She is on Eliquis. Head CT was read as no acute intracranial abnormality. Age-related findings. Thoracic spine CT was read as mild thoracic spondylosis without acute findings. Abdominal pelvis CT was read as probable nondisplaced fracture of the lateral aspect of the right 10th rib. No acute cardiopulmonary abnormality. Shoulder x-ray no acute osseous abnormality. Ankle x-ray was read as no acute osseous abnormality. Ankle x-ray no acute osseous abnormality. Hip and pelvis x-ray no acute osseous abnormality. Chest x-ray was read as no acute cardiopulmonary abnormality. The patient was given a [place] in the emergency room. The patient is being admitted to observation status on the date of service of 02/18/2023. Review of Systems Review of Systems: All systems reviewed & are unremarkable except as noted in HPI and below Constitutional: Constitutional: Reports as per HPI and Reports no additional constitutional complaints Eyes: Eyes: Reports as per HPI and Reports no additional eye complaints ENT: Reports system reviewed and no additional complaints, except as documented and Reports Normal hearing present Cardiovascular: Cardiovascular: Reports no additional cardiovascular complaints Respiratory: Respiratory: Reports no additional respiratory complaints and Reports no additional respiratory complaints Gastrointestinal: Gastrointestinal: Reports as per HPI and Reports no additional gastrointestinal complaints Musculoskeletal: Musculoskeletal: Reports no additional musculoskeletal complaints Integumentary/Breasts: Skin/Breast: Reports system reviewed and no additional complaints, except as docu and Reports as per HPI Neurologic: Reports system reviewed and no additional complaints, except as documented, Reports as per HPI and Reports Normal hearing present Psychiatric: Psychiatric: Reports no additional psychiatric complaints and Reports as per HPI Endocrine: Endocrine: Reports no additional endocrine complaints Hematologic/Lymphatic: Hematologic/Lymphatic: Reports no additional hematologic/lymphatic complaints Allergic/Immunologic: Allergic/Immunologic: Reports no additional allergic/immunologic complaints [facility] Past Medical History Medical History Adenomatous colon polyp Arthritis Cancer lung and lymphnodes 2012 and 2014 COPD (chronic obstructive pulmonary disease) uses inhaler, right upper lobe removed lung cancer 2012;lower lobe and lymphnodes 2014 CVA (cerebral vascular accident) 06/2018 TPA administered and rehab-pt states now no residual effect Diabetes last A1C=5.9 (10/2019) DVT (deep venous thrombosis) ESR raised ESR raised GERD (gastroesophageal reflux disease) Gout History of chemotherapy HTN (hypertension) Hx of pulmonary embolus Hx of radiation therapy Hypercholesterolemia Inflammatory arthritis Lung cancer Neuropathy Neutropenia Obesity Osteoarthritis of left knee Peripheral neuropathy Shingles Sleep apnea Surgical History Surgical History History of dilatation and curettage History of endoscopy History of esophagogastroduodenoscopy (EGD) History of lobectomy of lung History of
--- NOTE | 2023-02-18 17:50 | ADMGEN ---
This patient, Zoe Dia, was admitted to Medical Room [facility] @ 1285. Patient/family oriented to hospital policies and general routines including ID bracelet, bed and alarms, visiting hours, pain management, procedures, bathroom and other care routines, personal items, smoking policy, room service/diet, and visiting hours. Information on how to activate the Rapid Response Team has been discussed. Patient/Family are encouraged to report perceived risks to care and to ask questions if they do not understand what they are told or what they should do.
[2023-02-18] MEDS: HYDROcodone/acetaminophen (*CRX) 5-325 MG TABLET 1 TAB PO (21:25)
[2023-02-18] MEDS: traZODone HCL 50 MG TABLET PO (22:46)
[2023-02-18] MEDS: APIXABAN 5 MG TABLET PO (22:47)
[2023-02-18 22:52] LABS: Creatine Kinase 49 U/L (30-135)
[2023-02-18 23:46] LABS: Glucose Point of Care 96 mg/dl (65-105)
[2023-02-19 04:52] VITALS: BP 142/85; PULSE 100; RESP 20; TEMP 36.7; O2SAT 93
[2023-02-19 05:51] LABS: Basophils Percent Auto 0.3 % (0.2-1.2); Eosinophils Absolute Auto 0.1 K/mm3 (0-0.3); Hemoglobin 11.2 g/dL (12.0-15.0); Immature Granulocyte Absolute 0.02 K/mm3 (0.00-0.031); Immature Granulocyte Percent A 0.3 % (0-0.5); Lymphocytes Absolute Auto 0.69 K/mm3 (0.9-3.2); Lymphocytes Percent Auto 11.7 % (18.3-44.2); Mean Corpuscular HGB Conc 31.1 g/dl (32-36); Mean Corpuscular Hemoglobin 29.4 pg (26-34); Mean Corpuscular Volume 94.5 fl (80-100); Mean Platelet Volume 9.8 fl (7.4-10.4); Monocytes Absolute Auto 0.6 K/mm3 (0.1-0.6); Monocytes Percent Auto 10.3 % (2.6-8.5); Neutrophils Absolute Auto 4.4 K/mm3 (1.3-6.7); Neutrophils Percent Auto 75.4 % (45.5-73.1); Platelet Count Result 205 k/mm3 (150-375); Red Blood Count 3.81 M/mm3 (4.2-5.4); Red Cell Distribution Width 14.2 % (11.5-14.5); White Blood Count 5.9 K/mm3 (4.5-10.0)
[2023-02-19 06:03] LABS: Lactic Acid Reflex 0.7 mmol/L (0.7-2.0)
[2023-02-19 06:08] LABS: Alanine Aminotransferase 18 U/L (6-35); Albumin Level 3.8 g/dL (3.5-5.1); Alkaline Phosphatase 129 U/L (38-126); Anion Gap 3 mmol/L (8-16); Aspartate Amino Transferase 23 U/L (14-36); Bilirubin,Total 0.5 mg/dL (0.2-1.3); Blood Urea Nitrogen 11 mg/dL (7-17); Calcium 8.4 mg/dL (8.4-10.2); Carbon Dioxide 33 mmol/L (22-30); Chloride 102 mmol/L (98-107); Estimated CRCL calculation 61 ml/min; Estimated Glomerular Filt Rate > 60; Glucose 88 mg/dL (65-110); Magnesium 1.9 mg/dL (1.6-2.3); Potassium 3.6 mmol/L (3.4-5.0); Sodium 138 mmol/L (137-145)
[2023-02-19] MEDS: HYDROmorphone HCL INJ (*CRX) 1 MG/ML SYR IV PUSH (06:33)
[2023-02-19] MEDS: FLUTICASONE/UMECLIDIN/VILANTER 100-62.5-25 MCG ELLIPTA 1 PUFF INHALATION (08:07)
[2023-02-19] MEDS: hydroCHLOROthiazide 12.5 MG CAPSULE PO (08:57)
[2023-02-19] MEDS: MAGNESIUM OXIDE 400 MG TABLET PO ×2 (08:57→17:13)
[2023-02-19] MEDS: lisinopriL 20 MG TABLET PO (08:57)
[2023-02-19] MEDS: PANTOPRAZOLE 40 MG TABLET PO (08:57)
[2023-02-19] MEDS: APIXABAN 5 MG TABLET PO ×2 (08:57→17:13)
[2023-02-19] MEDS: VITAMIN B COMPLEX CAPSULE 1 CAP PO ×2 (08:57→17:13)
[2023-02-19] MEDS: allopurinoL 300 MG TABLET PO (08:57)
[2023-02-19] MEDS: MONTELUKAST SODIUM 10 MG TABLET PO (08:57)
[2023-02-19] MEDS: CALCIUM CARBONATE (OSCAL) 500 MG TABLET PO ×2 (08:58→17:13)
[2023-02-19] MEDS: traMADol HCL (*CRX) 50 MG TABLET PO ×3 (09:00→23:59)
[2023-02-19] MEDS: BACLOFEN 10 MG TABLET PO ×2 (09:05→17:13)
[2023-02-19 09:40] LABS: Folic Acid > 20.0 ng/mL (2.76->20)
[2023-02-19 14:00] VITALS: BP 121/69; PULSE 100; RESP 18; TEMP 36.6; O2SAT 97
--- NOTE | 2023-02-19 14:23 | PM.IMPN ---
Progress Note: A&P Assessment and Plan (1) Generalized weakness: Code(s): R53.1 - Weakness Status: Acute Assessment and Plan: Patietn with generalized weakness. She lives at [facility]. She had a fall resulting in pain and difficulty ambulating. She is working with PT OT. TCK normal. She may need skilled rehab. corporate coordinator is working on placement at a rehab facility (2) Closed rib fracture: Qualifiers: Encounter type: initial encounter Laterality: right Rib fracture type: single rib Qualified Code(s): S22.31XA - Fracture of one rib, right side, initial encounter for closed fracture Code(s): S22.39XA - Fracture of one rib, unspecified side, initial encounter for closed fracture Status: Acute Assessment and Plan: CT of the Abd showing probable nondisplaced fracture at the lateral aspect of the right 10th rib. Continue with analgesics Continue with incentive spirometer. (3) DVT (deep venous thrombosis): Code(s): I82.409 - Acute embolism and thrombosis of unspecified deep veins of unspecified lower extremity Status: Acute Assessment and Plan: Hx of DVT. Continue with Eliquis (4) Neuropathy: Code(s): G62.9 - Polyneuropathy, unspecified Status: Acute Assessment and Plan: Stable. Continue with analgesics (5) COPD (chronic obstructive pulmonary disease): Qualifiers: COPD type: unspecified COPD Qualified Code(s): J44.9 - Chronic obstructive pulmonary disease, unspecified Code(s): J44.9 - Chronic obstructive pulmonary disease, unspecified Status: Chronic Assessment and Plan: No wheezing. Remains on RA. Has ERNANDEZ but CXR clear. She is already on Eliquis. Continue Singulair and inhalers (6) Hypercholesterolemia: Code(s): E78.00 - Pure hypercholesterolemia, unspecified Status: Chronic Assessment and Plan: LTs normal. TCK okay. Resume Pravachol (7) HTN (hypertension): Qualifiers: Hypertension type: unspecified Qualified Code(s): I10 - Essential (primary) hypertension Code(s): I10 - Essential (primary) hypertension Status: Chronic Assessment and Plan: Patient's blood pressure was reviewed on 02/19 Blood pressure remains well controlled. Will continue current medications. (8) CVA (cerebral vascular accident): Qualifiers: CVA mechanism: unspecified Qualified Code(s): I63.9 - Cerebral infarction, unspecified Code(s): I63.9 - Cerebral infarction, unspecified Status: Chronic Assessment and Plan: Continue PT/OT. Not on ASA. Continue Eliquis. Resume statin Subjective Date/time seen: 02/19/23 14:23 Interval history: 72yo female with DM, COPD, HTN and CVA here for a fall that occured the night prior to admission. Up to a chair today. Was having SOB walking with walker to the bathroom. She normally can walk down the villar to the dining room at her facility until a few months ago when she has noticed increasing ERNANDEZ. She has spoken with her doctors about this but no testing performed. She has been having a cough productive of yeloow sputum past 3-4 weeks. No fevers. No CP. Hx of COPD. Quit smoking in 2011. She has hx of RUL lung resection for lung CA. Exam Narrative: AF 98.1 142/85 100 20 93% ra Gen - NARD lying semi-recumbent in bed Chest - CTA bilaterally, nml RR CV - RRR S1/S2 Abd - Soft, NT/ND, Positive BS Ext - trace pedal edema Psych - Nml mood and affect Skin - Warm and dry Objective Data Vital Signs Vital Signs: Vital Signs - 24 hr 02/18/23 14:31 02/18/23 14:46 02/18/23 15:01 Temperature Pulse Rate 72 70 89 Respiratory Rate 18 18 20 Blood Pressure 132/79 141/87 H 145/85 H Pulse Oximetry 93 91 91 Oxygen Delivery 02/18/23 15:31 02/18/23 15:46 02/18/23 16:01 Temperature Pulse Rate 69 64 87 Respiratory Rate 18 18 18 Blood Pressure 129/66 130/66
[2023-02-19 20:00] VITALS: PULSE 100; RESP 18; O2SAT 97
[2023-02-19] MEDS: traZODone HCL 50 MG TABLET PO (20:30)
[2023-02-19 22:00] VITALS: BP 140/81; PULSE 98; RESP 20; TEMP 36.8; O2SAT 97
[2023-02-20 06:00] VITALS: BP 136/78; PULSE 84; RESP 20; TEMP 36.7; O2SAT 98
[2023-02-20] MEDS: CALCIUM CARBONATE (OSCAL) 500 MG TABLET PO ×2 (08:31→16:40)
[2023-02-20] MEDS: MAGNESIUM OXIDE 400 MG TABLET PO ×2 (08:31→16:39)
[2023-02-20] MEDS: MONTELUKAST SODIUM 10 MG TABLET PO (08:31)
[2023-02-20] MEDS: PRAVASTATIN SODIUM 20 MG TABLET 40 MG PO (08:31)
[2023-02-20] MEDS: allopurinoL 300 MG TABLET PO (08:31)
[2023-02-20] MEDS: APIXABAN 5 MG TABLET PO ×2 (08:31→16:39)
[2023-02-20] MEDS: VITAMIN B COMPLEX CAPSULE 1 CAP PO ×2 (08:32→16:40)
[2023-02-20] MEDS: lisinopriL 20 MG TABLET PO (08:32)
[2023-02-20] MEDS: PANTOPRAZOLE 40 MG TABLET PO (08:32)
[2023-02-20] MEDS: hydroCHLOROthiazide 12.5 MG CAPSULE PO (08:32)
[2023-02-20 08:50] VITALS: PULSE 74; RESP 18; O2SAT 92
[2023-02-20] MEDS: FLUTICASONE/UMECLIDIN/VILANTER 100-62.5-25 MCG ELLIPTA 1 PUFF INHALATION (08:50)
[2023-02-20 14:00] VITALS: BP 108/67; PULSE 104; RESP 18; TEMP 36.1; O2SAT 95
--- NOTE | 2023-02-20 14:18 | PM.IMPN ---
Progress Note: A&P Assessment and Plan (1) Generalized weakness: Code(s): R53.1 - Weakness Status: Acute Assessment and Plan: Patient with generalized weakness. She has a hx of CVA presumably without deficits. She lives at [facility]. She had a fall resulting in pain and difficulty ambulating. She is working with PT OT. TCK normal. She may need skilled rehab. human resources operations coordinator is working on placement at a rehab facility. Okay for discharge when bed available. (2) Closed rib fracture: Qualifiers: Encounter type: initial encounter Laterality: right Rib fracture type: single rib Qualified Code(s): S22.31XA - Fracture of one rib, right side, initial encounter for closed fracture Code(s): S22.39XA - Fracture of one rib, unspecified side, initial encounter for closed fracture Status: Acute Assessment and Plan: CT of the Abd showing probable nondisplaced fracture at the lateral aspect of the right 10th rib. Continue with analgesics Continue with incentive spirometer. Out of bed as tolerated. (3) DVT (deep venous thrombosis): Code(s): I82.409 - Acute embolism and thrombosis of unspecified deep veins of unspecified lower extremity Status: Acute Assessment and Plan: Hx of DVT. Continue with Eliquis (4) Neuropathy: Code(s): G62.9 - Polyneuropathy, unspecified Status: Acute Assessment and Plan: Stable. Continue with analgesics (5) COPD (chronic obstructive pulmonary disease): Qualifiers: COPD type: unspecified COPD Qualified Code(s): J44.9 - Chronic obstructive pulmonary disease, unspecified Code(s): J44.9 - Chronic obstructive pulmonary disease, unspecified Status: Chronic Assessment and Plan: No wheezing. Remains on RA. Has ERNANDEZ but CXR clear. She is already on Eliquis. Continue Singulair and inhalers (6) Hypercholesterolemia: Code(s): E78.00 - Pure hypercholesterolemia, unspecified Status: Chronic Assessment and Plan: LTs normal. TCK okay. Continue Pravachol (7) HTN (hypertension): Qualifiers: Hypertension type: unspecified Qualified Code(s): I10 - Essential (primary) hypertension Code(s): I10 - Essential (primary) hypertension Status: Chronic Assessment and Plan: Patient's blood pressure was reviewed on 4/18 Blood pressure remains well controlled. Will continue current medications. (8) CVA (cerebral vascular accident): Qualifiers: CVA mechanism: unspecified Qualified Code(s): I63.9 - Cerebral infarction, unspecified Code(s): I63.9 - Cerebral infarction, unspecified Status: Chronic Assessment and Plan: Continue PT/OT. Not on ASA. Continue Eliquis. Continue statin Subjective Date/time seen: 02/20/23 14:18 Interval history: 72yo female with DM, COPD, HTN and CVA here for a fall that occured the night prior to admission. Slept well. no problems overnight. Complains of urine incontinence last night (diaper noted to be in place). No dyuria or hematuria. No lower abd pain but still has the right flank and back pain. (called by RN later who stated the patient was complaining to the RN of lower abd pain and dysuria) Exam Narrative: AF 98.0 136/78 74 18 92% ra Gen - NARD lying semi-recumbent in bed Chest - CTA bilaterally, nml RR CV - RRR S1/S2 Abd - Soft, ND, +BS, bladder distended? - she is in a diaper Ext - trace pedal edema Psych - Nml mood and affect Skin - Warm and dry Objective Data Vital Signs Vital Signs: Vital Signs - 24 hr 02/19/23 20:00 02/19/23 22:00 02/20/23 06:00 Temperature 98.2 F 98.0 F Pulse Rate 100 98 84 Respiratory Rate 18 20 20 Blood Pressure 140/81 136/78 Pulse Oximetry 97 97 98 Oxygen Delivery Room Air 02/20/23 08:50 02/20/23 08:50 02/20/23 08:30 Temperature Pulse Rate 74 74 Respiratory Rate 18 18 Blood Pressure
[2023-02-20] MEDS: traMADol HCL (*CRX) 50 MG TABLET PO ×2 (16:39→20:46)
[2023-02-20 19:52] VITALS: BP 101/58; PULSE 96; RESP 18; TEMP 36.6; O2SAT 95
[2023-02-20] MEDS: traZODone HCL 50 MG TABLET PO (20:46)
[2023-02-21] MEDS: traMADol HCL (*CRX) 50 MG TABLET PO (04:57)
[2023-02-21 04:58] VITALS: BP 104/46; PULSE 99; RESP 20; TEMP 36.3; O2SAT 92
[2023-02-21 07:05] VITALS: PULSE 90; RESP 18; O2SAT 96
[2023-02-21] MEDS: FLUTICASONE/UMECLIDIN/VILANTER 100-62.5-25 MCG ELLIPTA 1 PUFF INHALATION (07:05)
--- NOTE | 2023-02-21 08:01 | PM.DS ---
DS: Admitting Diagnosis Discharge Date 02/21/23 Admitting Diagnosis fall DS: Discharge Diagnosis Discharge Diagnosis (1) Generalized weakness: Code(s): R53.1 - Weakness Status: Acute Assessment and Plan: Patient with generalized weakness. She has a hx of CVA presumably without deficits. She lives at [facility]. She had a fall resulting in pain and difficulty ambulating. She is working with PT OT. TCK normal. She may need skilled rehab. direct marketing coordinator is working on placement at a rehab facility. Okay for discharge when bed available. (2) Closed rib fracture: Qualifiers: Encounter type: initial encounter Laterality: right Rib fracture type: single rib Qualified Code(s): S22.31XA - Fracture of one rib, right side, initial encounter for closed fracture Code(s): S22.39XA - Fracture of one rib, unspecified side, initial encounter for closed fracture Status: Acute Assessment and Plan: CT of the Abd showing probable nondisplaced fracture at the lateral aspect of the right 10th rib. Continue with analgesics Continue with incentive spirometer. Out of bed as tolerated. (3) DVT (deep venous thrombosis): Code(s): I82.409 - Acute embolism and thrombosis of unspecified deep veins of unspecified lower extremity Status: Acute Assessment and Plan: Hx of DVT. Continue with Eliquis (4) Neuropathy: Code(s): G62.9 - Polyneuropathy, unspecified Status: Acute Assessment and Plan: Stable.? Continue with analgesics (5) COPD (chronic obstructive pulmonary disease): Qualifiers: COPD type: unspecified COPD Qualified Code(s): J44.9 - Chronic obstructive pulmonary disease, unspecified Code(s): J44.9 - Chronic obstructive pulmonary disease, unspecified Status: Chronic Assessment and Plan: No wheezing. Remains on RA. Has ERNANDEZ but CXR clear. She is already on Eliquis. Continue Singulair and inhalers (6) Hypercholesterolemia: Code(s): E78.00 - Pure hypercholesterolemia, unspecified Status: Chronic (7) HTN (hypertension): Qualifiers: Hypertension type: unspecified Qualified Code(s): I10 - Essential (primary) hypertension Code(s): I10 - Essential (primary) hypertension Status: Chronic Assessment and Plan: Patient's blood pressure was reviewed on 02/21 Blood pressure remains well controlled.? Will continue current medications. (8) CVA (cerebral vascular accident): Qualifiers: CVA mechanism: unspecified Qualified Code(s): I63.9 - Cerebral infarction, unspecified Code(s): I63.9 - Cerebral infarction, unspecified Status: Chronic DS: Summary Hospital Course Hospital Course: 72yo female with DM, COPD, HTN and CVA here for a fall that occurred the night prior to admission. Patient with generalized weakness. She has a hx of CVA presumably without deficits. She lives at [facility]. She had a fall resulting in pain and difficulty ambulating. She is working with PT OT. TCK normal. She may need skilled rehab. direct marketing coordinator is working on placement at a rehab facility. Okay for discharge when bed available. Time Spent with Patient Time attestation: Total time spent providing and/or coordinating discharge services: Discharge Plan Discharge Attending physician on discharge: Sushma Omalley Consulting providers: Niels Friedman Discharging Clinician: Sushma Omalley Patient Disposition: SNF Activity: as tolerated Diet: as tolerated Stand Alone Forms: General Discharge Information Follow-up/Referrals: Omega,Jacky Segura MD [Primary Care Provider] - Discharge Medications: Continued calcium 500 mg Tablet 500 mg PO BID metformin 500 mg tablet 500 mg PO BID pravastatin 40 mg tablet 40 mg PO DAILY omeprazole 40 mg capsule,delayed release(DR/EC) 40 mg PO DAILY baclofen 10 mg table
[2023-02-21] MEDS: PRAVASTATIN SODIUM 20 MG TABLET 40 MG PO (08:35)
[2023-02-21] MEDS: lisinopriL 20 MG TABLET PO (08:36)
[2023-02-21] MEDS: MAGNESIUM OXIDE 400 MG TABLET PO (08:36)
[2023-02-21] MEDS: CALCIUM CARBONATE (OSCAL) 500 MG TABLET PO (08:36)
[2023-02-21] MEDS: MONTELUKAST SODIUM 10 MG TABLET PO (08:36)
[2023-02-21] MEDS: hydroCHLOROthiazide 12.5 MG CAPSULE PO (08:36)
[2023-02-21] MEDS: PANTOPRAZOLE 40 MG TABLET PO (08:36)
[2023-02-21] MEDS: APIXABAN 5 MG TABLET PO (08:36)
[2023-02-21] MEDS: allopurinoL 300 MG TABLET PO (08:36)
[2023-02-21] MEDS: VITAMIN B COMPLEX CAPSULE 1 CAP PO (08:36)
[2023-02-21 09:00] VITALS: O2SAT 93
[2023-02-21 09:53] VITALS: O2SAT 93
[2023-02-21] MEDS: BACLOFEN 10 MG TABLET PO (12:22)
== END 2023-02-21 14:00 | DRG 206 ==
LOC: ANHED 15:30 → ANH3MED 17:14
PROVIDERS: Nurse Practitioner; Admitting Provider Internal Medicine; Emergency Provider Physician Assistant; PCP Internal Medicine; Visit Provider Student in an Organized Health Care Education/Training Program
DX: S22.31XA Fracture of one rib, right side, initial encounter for closed fracture (principal); R53.1 Weakness; W18.39XA Other fall on same level, initial encounter; M19.90 Unspecified osteoarthritis, unspecified site; J44.9 Chronic obstructive pulmonary disease, unspecified; K21.9 Gastro-esophageal reflux disease without esophagitis; G47.30 Sleep apnea, unspecified; E11.42 Type 2 diabetes mellitus with diabetic polyneuropathy; E78.00 Pure hypercholesterolemia, unspecified; G62.9 Polyneuropathy, unspecified; R32 Unspecified urinary incontinence; E66.9 Obesity, unspecified; Z96.651 Presence of right artificial knee joint; Z68.34 Body mass index [BMI] 34.0-34.9, adult; Z86.73 Personal history of transient ischemic attack (TIA), and cerebral infarction without residual deficits; Z79.84 Long term (current) use of oral hypoglycemic drugs; Z86.711 Personal history of pulmonary embolism; Z86.718 Personal history of other venous thrombosis and embolism; Z85.118 Personal history of other malignant neoplasm of bronchus and lung; Z85.89 Personal history of malignant neoplasm of other organs and systems; Z90.49 Acquired absence of other specified parts of digestive tract; Z90.710 Acquired absence of both cervix and uterus; Z87.891 Personal history of nicotine dependence
CPT/HCPCS: 36415; 70450; 71045; 72128; 73030; 73521; 73600; 74177; 76857; 80053; 81001; 82550; 82607; 82746; 82948; 83605; 83735; 84443; 85025; 94640; 96374; 97110; 97161; 97165; 97530; 97535; 99285; A9270; G0378; J1170; Q9967

== ENCOUNTER 2023-05-18 12:45 | Emergency (ER) | payer MEDICARE, SELFPAY ==
[2023-05-18] VITALS (10 sets, daily range): BP systolic 106–153; BP diastolic 54–90; PULSE 72–113; RESP 15–16; TEMP 36.3–36.6; O2SAT 91–100
--- NOTE | ~2023-05-18 | XR_ITS ---
Right Knee Technique: AP and lateral views were obtained. Clinical History: Pain Findings: No fracture or dislocation is seen. Medial compartment hemiarthroplasty is in place. There is minimal spurring at the lateral joint line. There is mild to moderate patellar spurring. Soft tiss ues are unremarkable. No joint effusion is seen. Impression: No acute fracture or dislocation. Medial compartment hemiarthroplasty in place. Degenerative spurring of the patellofemoral and lateral compartments, as detailed above. Reviewed, dictated and finalized at location M. Impression: No acute fracture or dislocation. Medial compartment hemiarthroplasty in place. Degenerative spurring of the patellofemoral and lateral compartments, as detail ed above.
--- NOTE | ~2023-05-18 | XR_ITS ---
EXAMINATION: XR chest 1V portable DATE: 05/18/2023 18:18 INDICATION: Pneumonia. TECHNIQUE: A single frontal view of the chest was obtained. COMPARISON: Chest single view 02/18/2023, chest CT 11/18/2022 FINDINGS: There is volume loss of right hemithorax with staple lines, consistent with right upper lob ectomy. There are chronic airspace opacities in right perihilar region, consistent with radiation fib rosis. No pleural effusion or pneumothorax. The heart size is normal. IMPRESSION: 1. 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 2. Right upper lobectomy. Reviewed, dictated and finalized at location E.
--- NOTE | ~2023-05-18 | XR_ITS ---
EXAMINATION: XR hip RT min 2V DATE: 05/18/2023 16:49 INDICATION: Right hip fracture. TECHNIQUE: 2 views of right hip were obtained. COMPARISON: Right hip radiographs 02/18/2023 FINDINGS: Bone alignment is normal. No fracture. There is mild right hip osteoarthritis. IMPRESSION: 1. Mild right hip osteoarthritis. Reviewed, dictated and finalized at location E.
--- NOTE | 2023-05-18 14:44 | ED.GENADULT ---
HPI - General Adult General Chief complaint: Extremity Problem,Nontraumatic Stated complaint: lower extremity pain Time Seen by Provider: 05/18/23 13:12 Source: patient Mode of arrival: EMS Limitations: no limitations History of Present Illness HPI narrative: This is a 72-year-old female with PMH of COPD, PE, osteoarthritis, gout who presents to the ED via EMS from long-term with chief complaints of right knee pain and right lower extremity pain ongoing for the past week. Patient states that she has had decreased mobility at her long-term due to this pain. She reports she can bear weight but it is difficult due to pain. She has been having to use the wheelchair more often to get from place to place in the long-term. Denies any known injury. Denies fevers, chills, skin changes, nausea, vomiting, headache, LOC. Denies numbness or weakness. Per chart review patient has surgical history of right hemiarthroplasty of the medial compartment on the right knee. Done by Dr. Power. also has history of lung lobectomy, cholecystectomy, tonsillectomy, total hysterectomy. Related Data Home Medications Medication Instructions Recorded Confirmed baclofen 10 mg tablet 10 mg PO TID PRN Hiccups 09/23/19 02/18/23 metformin 500 mg tablet 500 mg PO BID 09/23/19 02/18/23 omeprazole 40 mg capsule,delayed 40 mg PO DAILY 09/23/19 02/18/23 release vitamin B complex 1 cap PO BID 09/23/19 02/18/23 allopurinol 100 mg tablet 300 mg PO DAILY 01/21/20 02/18/23 apixaban 5 mg tablet (Eliquis) 5 mg PO BID 01/21/20 02/18/23 acetaminophen 500 mg tablet 500 mg PO Q6H PRN Pain 02/18/23 02/18/23 albuterol sulfate 90 mcg/actuation 2 puff inhalation Q6H PRN 02/18/23 02/18/23 aerosol inhaler (Ventolin HFA) Shortness Of Breath Or Wheezing fluticasone fur. 100 mcg-umeclid 1 inh inhalation DAILY 02/18/23 02/18/23 62.5 mcg-vilant 25 mcg inhalat.powder (Trelegy Ellipta) lisinopril 20 1 tablet PO HS 04/16/23 04/16/23 mg-hydrochlorothiazide 12.5 mg tablet magnesium oxide 400 mg PO BID 02/18/23 02/18/23 montelukast 10 mg tablet 10 mg PO DAILY 02/18/23 02/18/23 trazodone 50 mg tablet 50 mg PO HS 02/18/23 02/18/23 Allergies Allergy/AdvReac Type Severity Reaction Status Date / Time diclofenac Allergy Severe sob Verified 02/18/23 09:02 Penicillins Allergy Intermediate Itching Verified 02/18/23 09:02 penicillin V Allergy Itching Verified 02/18/23 09:02 [facility] Past Medical History Medical History Adenomatous colon polyp Arthritis Cancer lung and lymphnodes 2012 and 2014 COPD (chronic obstructive pulmonary disease) uses inhaler, right upper lobe removed lung cancer 2012;lower lobe and lymphnodes 2014 CVA (cerebral vascular accident) 06/2018 TPA administered and rehab-pt states now no residual effect Diabetes last A1C=5.9 (10/2019) DVT (deep venous thrombosis) ESR raised ESR raised GERD (gastroesophageal reflux disease) Gout History of chemotherapy HTN (hypertension) Hx of pulmonary embolus Hx of radiation therapy Hypercholesterolemia Inflammatory arthritis Lung cancer Neuropathy Neutropenia Obesity Osteoarthritis of left knee Peripheral neuropathy Shingles Sleep apnea Surgical History Surgical History History of dilatation and curettage History of endoscopy History of esophagogastroduodenoscopy (EGD) History of lobectomy of lung History of removal of Port-a-Cath History of right knee joint replacement 2014 History of total right knee replacement (TKR) partialknee Hx of cholecystectomy Hx of colonoscopy Hx of tonsillectomy Hx of total hysterectomy Family History Family History Mother Carcinoma of colon Cerebrovascular accident Father Family history of heart disease in male family member before age 55 Sibling Family history of hypercholesterolemia
[2023-05-18] MEDS: SODIUM CHLORIDE 0.9% IV 1,000 ML 999 ML IV CONT ×2 (15:05→18:38)
[2023-05-18] MEDS: MORPHINE SULFATE (*CRX) 4 MG/ML INJ IV PUSH (15:06)
[2023-05-18] MEDS: ONDANSETRON INJ 4 MG/2 ML VIAL IV PUSH (15:06)
[2023-05-18 15:07] LABS: Basophils Percent Auto 0.2 % (0.2-1.2); Eosinophils Percent Auto 0.3 % (0-4.4); Hematocrit 36.9 % (37.0-47.0); Hemoglobin 11.4 g/dL (12.0-15.0); Immature Granulocyte Absolute 0.19 K/mm3 (0.00-0.031); Immature Granulocyte Percent A 1.6 % (0-0.5); Lymphocytes Absolute Auto 1.09 K/mm3 (0.9-3.2); Mean Corpuscular HGB Conc 30.9 g/dl (32-36); Mean Corpuscular Hemoglobin 29.5 pg (26-34); Mean Corpuscular Volume 95.6 fl (80-100); Mean Platelet Volume 9.4 fl (7.4-10.4); Monocytes Absolute Auto 0.9 K/mm3 (0.1-0.6); Monocytes Percent Auto 7.5 % (2.6-8.5); Neutrophils Absolute Auto 9.8 K/mm3 (1.3-6.7); Neutrophils Percent Auto 81.4 % (45.5-73.1); Platelet Count Result 195 k/mm3 (150-375); Red Blood Count 3.86 M/mm3 (4.2-5.4); Red Cell Distribution Width 16.4 % (11.5-14.5); White Blood Count 12.1 K/mm3 (4.5-10.0)
[2023-05-18 15:16] LABS: Alanine Aminotransferase 21 U/L (6-35); Alkaline Phosphatase 124 U/L (38-126); Anion Gap 4 mmol/L (8-16); Aspartate Amino Transferase 26 U/L (14-36); Bilirubin,Total 0.4 mg/dL (0.2-1.3); Blood Urea Nitrogen 17 mg/dL (7-17); Calcium 8.8 mg/dL (8.4-10.2); Carbon Dioxide 29 mmol/L (22-30); Chloride 103 mmol/L (98-107); Estimated CRCL calculation 60 ml/min; Estimated Glomerular Filt Rate > 60; Glucose 112 mg/dL (65-110); Potassium 3.9 mmol/L (3.4-5.0); Sodium 136 mmol/L (137-145)
[2023-05-18 15:32] LABS: Erythrocyte Sedimentation Rate 61 mm/hr (0-20)
[2023-05-18] MEDS: LIDOCAINE HCL 1% LOCAL INJ 20 ML VIAL 10 ML INFILTRATE (17:19)
[2023-05-18 18:19] LABS: Color Synovial Fluid Red (Colorless); Source Synovial Fluid Synovial fluid
[2023-05-18 18:20] LABS: Appearance Synovial Fluid Bloody (Clear)
[2023-05-18 18:22] LABS: Nucleated Cell Synovial Fluid 107 /uL (0-200)
[2023-05-18 18:29] LABS: Lymphocytes Synovial Fluid 31 %; Monocytes Synovial Fluid 20 %; Neutrophils Synovial Fluid 49 % (0-25); RBC Synovial Fluid 17000 /uL (0-0)
[2023-05-18 18:32] LABS: Crystals Synovial Fluid None Seen (None Seen)
[2023-05-18 19:36] LABS: Appearance Urine Clear (Clear); Bacteria Urine None Seen /hpf; Bilirubin Urine Negative (Negative); Color Urine Dark Yellow (Yellow); Glucose Urine UA Negative (Negative); Ketones Urine Negative (Negative); Leukocyte Esterase Ur Negative LEU/UL (Negative); Nitrate Urine Negative (Negative); Non Pathogenic Casts 0-2; Protein Urine Negative (Negative); Specific Grav Ur 1.017 (1.001-1.035); Squamous Epithelial Cell Urine None seen /hpf (Few); Urobilinogen Urine 0.2 mg/dL (<2.0); WBC Urine 0-5 /hpf; pH Urine 5.5 (5.0-9.0)
[2023-05-18 19:54] LABS: Add Urine Microscopic? YES
== END 2023-05-18 20:39 ==
PROVIDERS: Emergency Provider Physician Assistant; PCP Internal Medicine
DX: M25.562 Pain in left knee (principal); M25.561 Pain in right knee; J44.9 Chronic obstructive pulmonary disease, unspecified; E11.9 Type 2 diabetes mellitus without complications; I10 Essential (primary) hypertension; F17.210 Nicotine dependence, cigarettes, uncomplicated; Z85.118 Personal history of other malignant neoplasm of bronchus and lung; Z86.73 Personal history of transient ischemic attack (TIA), and cerebral infarction without residual deficits; Z86.718 Personal history of other venous thrombosis and embolism
CPT/HCPCS: 20605; 36415; 71045; 73502; 73560; 80053; 81001; 85025; 85652; 86140; 87070; 87075; 87205; 89051; 89060; 96361; 96374; 96375; 99284; J2270; J2405; J7030

== ENCOUNTER 2023-06-12 13:48 | Outpatient (CLI) | payer MEDICARE, SELFPAY ==
--- NOTE | ~2023-06-12 | US_ITS ---
EXAMINATION: US arterial ankle brachial ind DATE: 06/12/2023 14:32 INDICATION: Claudication TECHNIQUE: Segmental pressures and plethysmographic and Doppler waveforms of the brachial and lower e xtremity arteries were obtained. COMPARISON: None. FINDINGS: Right and left brachial artery pressures of 106 mm Hg and 99 mm Hg, respectively, are concordant (nor mal difference <= 30 mmHg). The right ankle-brachial index (TRISTON) is 1.17 (normal >= 0.9-1.0). The right great toe-brachial index (TBI) is 0.62 (normal >= 0.65). Arterial Doppler waveforms are biphasic with brisk systolic upstrokes at both right posterior tibial and dorsalis pedis arteries. The left TRISTON is 1.23. The left TBI is 0.22. Arterial Doppler waveforms are biphasic with brisk systol ic upstrokes at both left posterior tibial and dorsalis pedis arteries. IMPRESSION: 1. Arterial occlusive disease to bilateral lower limbs with normal bilateral ABIs but mildly decrease d right and moderate to severely decreased left TBIs. Reviewed, dictated and finalized at location L. IMPRESSION: 1. Arterial occlusive disease to bilateral lower limbs with normal bilateral AB Is but mildly decreased right and moderate to severely decreased left TBIs.
== END 2023-06-12 13:49 | disposition home or self-care (01) ==
PROVIDERS: PCP Internal Medicine; Visit Provider Nurse Practitioner
DX: M79.89 Other specified soft tissue disorders (principal); M79.604 Pain in right leg; I73.9 Peripheral vascular disease, unspecified
CPT/HCPCS: 93922

== ENCOUNTER 2023-07-24 09:19 | Emergency (ER) | payer MEDICARE, SELFPAY ==
--- NOTE | ~2023-07-24 | XR_ITS ---
EXAMINATION: XR knee RT 3V DATE: 07/24/2023 10:36 INDICATION: Right knee pain post fall one of prior TECHNIQUE: AP, oblique and crosstable lateral views of the right knee were obtained. COMPARISON: 02/14/2023 FINDINGS: Again seen is a right knee medial unicompartmental arthroplasty which appears to remain well seated i n near-anatomic alignment. No fracture. Mild osteoarthritis in the lateral and patellofemoral compart ments. Minimal right knee joint effusion without layering lipohemarthrosis. IMPRESSION: 1. Right knee medial unicompartmental arthroplasty in near-anatomic alignment. No acute osseous abnor mality. 2. Mild osteoarthritis in the lateral and patellofemoral compartments. 3. Minimal right knee joint effusion. Reviewed, dictated and finalized at location A. IMPRESSION: 1. Right knee medial unicompartmental arthroplasty in near-anatomic alignment. No acute osseous abnormality. 2. Mild osteoarthritis in the lateral and patellofemoral compartments. 3. Minimal right knee joint effusion.
--- NOTE | ~2023-07-24 | XR_ITS ---
AP view of the pelvis and AP and lateral views of the right hip Clinical history: Pain Findings: No acute fracture or dislocation is seen. Osseous alignment is anatomic. There is minimal d egenerative change of both hip joints. Soft tissues are unremarkable. Impression: No fracture or dislocation. Minimal degenerative change of both hip joints. Reviewed, dictated and finalized at location . Impression: No fracture or dislocation. Minimal degenerative change of both hip joints.
--- NOTE | ~2023-07-24 | XR_ITS ---
Right ankle Technique: AP and lateral views were obtained. Clinical History: Pain Findings: No acute fracture or dislocation is seen. Osseous alignment is anatomic. Ankle mortise and other visualized joint spaces are preserved. Small plantar calcaneal spur present. Lateral soft tissu e swelling noted. Impression: Lateral soft tissue swelling. No acute fracture or dislocation. Reviewed, dictated and finalized at location . Impression: Lateral soft tissue swelling. No acute fracture or dislocation.
--- NOTE | ~2023-07-24 | XR_ITS ---
Right elbow Technique: AP and lateral views were obtained. Clinical History: Pain Findings: No acute fracture or dislocation is seen. Osseous alignment is anatomic. Joint spaces are p reserved. There is no displacement of the fat pads, and soft tissues are unremarkable. Impression: Unremarkable radiographs. Reviewed, dictated and finalized at location . Impression: Unremarkable radiographs.
--- NOTE | ~2023-07-24 | XR_ITS ---
Right Shoulder Technique: AP and scapular Y views were obtained. Clinical History: Pain Findings: No fracture or dislocation is seen. Osseous alignment is anatomic. The glenohumeral and acr omioclavicular joint spaces are preserved. Soft tissues are unremarkable. Impression: Unremarkable right shoulder radiographs. Reviewed, dictated and finalized at [facility]. Impression: Unremarkable right shoulder radiographs.
[2023-07-24 09:14] VITALS: BP 121/75; PULSE 108; RESP 16; TEMP 36.4; O2SAT 96
--- NOTE | 2023-07-24 10:07 | ED.GENADULT ---
HPI - General Adult General Chief complaint: Extremity Injury, Lower Stated complaint: arm and leg pain Time Seen by Provider: 07/24/23 09:29 History of Present Illness HPI narrative: Zoe Dia is a 73 y/o female who presents today with concerns for continued pain from a fall that she had over a month ago. She reports that she came here initially after the fall and had imaging of her knee / hip. She describes the fall was ground level with a walker and tripped falling on her right side and the walker fell on to her. She did not hit her head or have any LOC. the fall was about 2 months ago. She comes in today with continued pain to her right shoulder/ right elbow/ right hip/ right knee/ right ankle that is worse with movement. She denies any new trauma/ injury/ falls since that original incident. Related Data Home Medications Medication Instructions Recorded Confirmed baclofen 10 mg tablet 10 mg PO TID PRN Hiccups 09/23/19 05/28/23 metformin 500 mg tablet 500 mg PO BID 09/23/19 05/28/23 omeprazole 40 mg capsule,delayed 40 mg PO DAILY 09/23/19 05/28/23 release vitamin B complex 1 cap PO BID 09/23/19 05/28/23 allopurinol 100 mg tablet 300 mg PO DAILY 01/21/20 05/28/23 apixaban 5 mg tablet (Eliquis) 5 mg PO BID 01/21/20 05/28/23 acetaminophen 500 mg tablet 500 mg PO Q6H PRN Pain 02/18/23 05/28/23 albuterol sulfate 90 mcg/actuation 2 puff inhalation Q6H PRN 02/18/23 05/28/23 aerosol inhaler (Ventolin HFA) Shortness Of Breath Or Wheezing fluticasone fur. 100 mcg-umeclid 1 inh inhalation DAILY 02/18/23 05/28/23 62.5 mcg-vilant 25 mcg inhalat.powder (Trelegy Ellipta) lisinopril 20 1 tablet PO HS 02/18/23 05/28/23 mg-hydrochlorothiazide 12.5 mg tablet montelukast 10 mg tablet 10 mg PO DAILY 02/18/23 05/28/23 calcium carbonate 600 mg calcium 600 mg PO DAILY 05/28/23 05/28/23 (1,500 mg) tablet (Calcium) Allergies Allergy/AdvReac Type Severity Reaction Status Date / Time diclofenac Allergy Severe sob Verified 07/24/23 09:26 Penicillins Allergy Intermediate Itching Verified 07/24/23 09:26 penicillin V Allergy Itching Verified 07/24/23 09:26 Review of Systems Review of Systems: CONSTITUTIONAL: Denies fever, chills, or sweats. EYES: Denies visual changes, redness, or discharge. ENT: Denies rhinorrhea, congestion, sore throat, or otalgia. CARDIOVASCULAR: Denies chest pain, palpitations, or edema. RESPIRATORY: Denies cough or dyspnea. GASTROINTESTINAL: Denies abdominal pain, nausea, vomiting, or diarrhea. GENITOURINARY: Denies dysuria or hematuria. SKIN: Denies rash or itching. MUSCULOSKELETAL: Pain to right shoulder/ right elbow/ right hip/ right knee/ and right ankle NEUROLOGIC: Denies headache, numbness, dizziness, or weakness. PSYCHIATRIC: Denies anxiety or depression. [facility] Past Medical History Medical History Adenomatous colon polyp Arthritis Cancer lung and lymphnodes 2012 and 2014 COPD (chronic obstructive pulmonary disease) uses inhaler, right upper lobe removed lung cancer 2012;lower lobe and lymphnodes 2014 CVA (cerebral vascular accident) 06/2018 TPA administered and rehab-pt states now no residual effect Diabetes last A1C=5.9 (10/2019) DVT (deep venous thrombosis) ESR raised ESR raised GERD (gastroesophageal reflux disease) Gout History of chemotherapy HTN (hypertension) Hx of pulmonary embolus Hx of radiation therapy Hypercholesterolemia Inflammatory arthritis Lung cancer Neuropathy Neutropenia Obesity Osteoarthritis of left knee Peripheral neuropathy Shingles Sleep apnea Surgical History Surgical History History of dilatation and curettage History of endoscopy History of esophagogastroduodenoscopy (EGD) History of lobectomy of lung History of removal of Port-a-Cath History of right knee joint replacement 2014 History of total right knee replacement (TKR) partialknee
[2023-07-24] MEDS: HYDROcodone/acetaminophen (*CRX) 5-325 MG TABLET 1 TAB PO (10:43)
[2023-07-24] MEDS: LIDOCAINE 5% PATCH 3 PATCH TRANSDERM (10:43)
[2023-07-24 13:12] VITALS: BP 150/91; PULSE 99; RESP 18; O2SAT 98
== END 2023-07-24 13:13 ==
PROVIDERS: Emergency Provider Nurse Practitioner Family; PCP Internal Medicine
DX: M17.11 Unilateral primary osteoarthritis, right knee (principal); M25.511 Pain in right shoulder; M25.521 Pain in right elbow; I10 Essential (primary) hypertension; F17.210 Nicotine dependence, cigarettes, uncomplicated; Z85.118 Personal history of other malignant neoplasm of bronchus and lung; Z79.84 Long term (current) use of oral hypoglycemic drugs; Z79.899 Other long term (current) drug therapy; Z86.73 Personal history of transient ischemic attack (TIA), and cerebral infarction without residual deficits; Z86.718 Personal history of other venous thrombosis and embolism
CPT/HCPCS: 73030; 73070; 73502; 73562; 73600; 99284; A9270

== ENCOUNTER 2023-08-31 12:30 | Emergency (ER) | payer MEDICARE, SELFPAY ==
--- NOTE | ~2023-08-31 | XR_ITS ---
EXAMINATION: XR knee LT 3V DATE: 08/31/2023 15:53 INDICATION: Left knee pain TECHNIQUE: Three views of the left knee were obtained. COMPARISON: 02/14/2023 FINDINGS: Alignment is normal. No fracture or osteochondral lesion. An old healed fracture of the pro ximal fibula is noted. There is tricompartmental osteoarthritis, moderate in the medial and patellofe moral compartments. No joint effusion/synovitis. Soft tissues are unremarkable. IMPRESSION: 1. Osteoarthritis without acute osseous abnormality. Reviewed, dictated and finalized at location F.
--- NOTE | ~2023-08-31 | XR_ITS ---
EXAMINATION: XR knee RT 3V DATE: 08/31/2023 15:53 INDICATION: Right knee pain TECHNIQUE: Three views of the right knee were obtained. COMPARISON: 07/24/2023 FINDINGS: Alignment is normal. No fracture or osteochondral lesion. Again noted are changes of unicom partmental arthroplasty in the medial knee. There is mild osteoarthritis of the patellofemoral and la teral compartments. A small knee joint effusion is present. Soft tissues are unremarkable. IMPRESSION: 1. No acute osseous abnormality. Reviewed, dictated and finalized at location F.
[2023-08-31 12:50] VITALS: BP 136/80; PULSE 100; RESP 15; TEMP 36.4; O2SAT 95
[2023-08-31 13:14] VITALS: BP 150/75; O2SAT 96
[2023-08-31 13:16] VITALS: BP 149/75; O2SAT 98
[2023-08-31 13:31] VITALS: BP 137/68; O2SAT 95
[2023-08-31 13:45] VITALS: O2SAT 98
[2023-08-31 13:46] VITALS: BP 146/58; O2SAT 100
[2023-08-31 14:01] LABS: Basophils Percent Auto 0.5 % (0.2-1.2); Eosinophils Absolute Auto 0.1 K/mm3 (0-0.3); Hematocrit 37.4 % (37.0-47.0); Hemoglobin 11.7 g/dL (12.0-15.0); Immature Granulocyte Absolute 0.03 K/mm3 (0.00-0.031); Immature Granulocyte Percent A 0.4 % (0-0.5); Lymphocytes Absolute Auto 1.05 K/mm3 (0.9-3.2); Lymphocytes Percent Auto 14.4 % (18.3-44.2); Mean Corpuscular HGB Conc 31.3 g/dl (32-36); Mean Corpuscular Hemoglobin 30.3 pg (26-34); Mean Corpuscular Volume 96.9 fl (80-100); Mean Platelet Volume 9.5 fl (7.4-10.4); Monocytes Absolute Auto 0.8 K/mm3 (0.1-0.6); Monocytes Percent Auto 10.5 % (2.6-8.5); Neutrophils Absolute Auto 5.4 K/mm3 (1.3-6.7); Neutrophils Percent Auto 73.2 % (45.5-73.1); Platelet Count Result 214 k/mm3 (150-375); Red Blood Count 3.86 M/mm3 (4.2-5.4); Red Cell Distribution Width 15.1 % (11.5-14.5); White Blood Count 7.3 K/mm3 (4.5-10.0)
[2023-08-31] MEDS: HYDROcodone/acetaminophen (*CRX) 5-325 MG TABLET 1 TAB PO (14:04)
[2023-08-31 14:12] LABS: Alanine Aminotransferase 20 U/L (6-35); Albumin Level 4.2 g/dL (3.5-5.1); Alkaline Phosphatase 127 U/L (38-126); Anion Gap 6 mmol/L (8-16); Aspartate Amino Transferase 30 U/L (14-36); Bilirubin,Total 0.7 mg/dL (0.2-1.3); Blood Urea Nitrogen 18 mg/dL (7-17); Calcium 9.2 mg/dL (8.4-10.2); Carbon Dioxide 31 mmol/L (22-30); Chloride 98 mmol/L (98-107); Estimated CRCL calculation 60 ml/min; Estimated Glomerular Filt Rate > 60; Glucose 95 mg/dL (65-110); Potassium 4.2 mmol/L (3.4-5.0); Sodium 135 mmol/L (137-145)
--- NOTE | 2023-08-31 17:42 | ED.GENADULT ---
HPI - General Adult General Chief complaint: Extremity Problem,Nontraumatic Stated complaint: from NH via EMS with worsening chronic leg pain Time Seen by Provider: 08/31/23 13:26 History of Present Illness HPI narrative: Patient is a 73-year-old female with history of chronic knee pain who presents ER with worsening knee pain. Worsening over the last couple weeks. No fevers chills or sweats. No trauma or fall. Reports she has been using a scooter/wheelchair to get around. No additional complaints at this time. Patient is anticoagulated on Eliquis. She lives in assisted living. Reports at baseline even 1 month ago she could not stand for any longer than 5 minutes. Related Data Home Medications Medication Instructions Recorded Confirmed baclofen 10 mg tablet 10 mg PO TID PRN Hiccups 09/23/19 05/28/23 metformin 500 mg tablet 500 mg PO BID 09/23/19 05/28/23 omeprazole 40 mg capsule,delayed 40 mg PO DAILY 09/23/19 05/28/23 release vitamin B complex 1 cap PO BID 09/23/19 05/28/23 allopurinol 100 mg tablet 300 mg PO DAILY 01/21/20 05/28/23 apixaban 5 mg tablet (Eliquis) 5 mg PO BID 01/21/20 05/28/23 acetaminophen 500 mg tablet 500 mg PO Q6H PRN Pain 02/18/23 05/28/23 albuterol sulfate 90 mcg/actuation 2 puff inhalation Q6H PRN 02/18/23 05/28/23 aerosol inhaler (Ventolin HFA) Shortness Of Breath Or Wheezing fluticasone fur. 100 mcg-umeclid 1 inh inhalation DAILY 02/18/23 05/28/23 62.5 mcg-vilant 25 mcg inhalat.powder (Trelegy Ellipta) lisinopril 20 1 tablet PO HS 02/18/23 05/28/23 mg-hydrochlorothiazide 12.5 mg tablet montelukast 10 mg tablet 10 mg PO DAILY 02/18/23 05/28/23 calcium carbonate 600 mg calcium 600 mg PO DAILY 05/28/23 05/28/23 (1,500 mg) tablet (Calcium) Allergies Allergy/AdvReac Type Severity Reaction Status Date / Time diclofenac Allergy Severe sob Verified 08/31/23 12:31 Penicillins Allergy Intermediate Itching Verified 08/31/23 12:31 penicillin V Allergy Itching Verified 08/31/23 12:31 Review of Systems Review of Systems: All systems reviewed & are unremarkable except as noted in HPI and below Constitutional: Constitutional: Denies chills and Denies fever(s) ENT: Denies nasal congestion and Denies sore throat Cardiovascular: Cardiovascular: Denies chest pain, Denies rapid heart rate and Denies radiating jaw, neck or arm pain Respiratory: Respiratory: Denies cough and Denies dyspnea Gastrointestinal: Gastrointestinal: Denies abdominal pain, Denies nausea and Denies vomiting Musculoskeletal: Musculoskeletal: Denies myalgias, Reports arthralgias and Denies joint swelling Neurologic: Denies focal weakness and Denies numbness PMFSH Past Medical History Medical History Adenomatous colon polyp Arthritis Cancer lung and lymphnodes 2012 and 2014 COPD (chronic obstructive pulmonary disease) uses inhaler, right upper lobe removed lung cancer 2012;lower lobe and lymphnodes 2014 CVA (cerebral vascular accident) 06/2018 TPA administered and rehab-pt states now no residual effect Diabetes last A1C=5.9 (10/2019) DVT (deep venous thrombosis) ESR raised ESR raised GERD (gastroesophageal reflux disease) Gout History of chemotherapy HTN (hypertension) Hx of pulmonary embolus Hx of radiation therapy Hypercholesterolemia Inflammatory arthritis Lung cancer Neuropathy Neutropenia Obesity Osteoarthritis of left knee Peripheral neuropathy Shingles Sleep apnea Surgical History Surgical History History of dilatation and curettage History of endoscopy History of esophagogastroduodenoscopy (EGD) History of lobectomy of lung History of removal of Port-a-Cath History of right knee joint replacement 2015 History of total right knee replacement (TKR) partialknee Hx of cholecystectomy Hx of colonoscopy Hx of tonsillectomy Hx of total hysterectomy Family History Family History (
--- NOTE | 2023-08-31 18:12 | PC.NURSE ---
Spoke to Ty at [place]. Nurse aware pt is returning. [phone]
== END 2023-08-31 19:01 | disposition home or self-care (01) ==
PROVIDERS: Emergency Provider Emergency Medicine; PCP Internal Medicine
DX: M25.569 Pain in unspecified knee (principal); G89.29 Other chronic pain; J44.9 Chronic obstructive pulmonary disease, unspecified; E11.9 Type 2 diabetes mellitus without complications; I10 Essential (primary) hypertension; F17.210 Nicotine dependence, cigarettes, uncomplicated; Z85.118 Personal history of other malignant neoplasm of bronchus and lung; Z86.73 Personal history of transient ischemic attack (TIA), and cerebral infarction without residual deficits
CPT/HCPCS: 36415; 73562; 80053; 85025; 99284; A9270

== ENCOUNTER → 2023-09-20 12:57 | Outpatient (CLI) | payer MEDICARE, SELFPAY ==
--- NOTE | ~2023-09-20 | MM_ITS ---
EXAMINATION: MM screening [facility] BI w [place] HISTORY: Screening mammogram TECHNIQUE: Craniocaudal and mediolateral oblique 3-D tomosynthesis images were obtained and synthetic 2-D images were generated. CAD analysis was submitted and interpreted. COMPARISON: 08/17/2022, 08/15/2021, 08/13/2020 BREAST PARENCHYMAL COMPOSITION: There are scattered areas of fibroglandular density. FINDINGS: No suspicious mass, calcification, or architectural distortion are identified in either tenn[place] ast to suggest malignancy. There has been no suspicious interval change. IMPRESSION: 1. No mammographic evidence of malignancy. 2. Recommend routine screening mammography in one year. BI-RADS Category 1: Negative Reviewed, dictated and finalized at location A. TZE ROLLER
== END ==
PROVIDERS: PCP Internal Medicine; Visit Provider Internal Medicine
DX: Z12.31 Encounter for screening mammogram for malignant neoplasm of breast (principal)
CPT/HCPCS: 77063; 77067

== ENCOUNTER 2023-10-12 08:17 | Emergency (ER) | payer MEDICARE, SELFPAY ==
[2023-10-12] VITALS (12 sets, daily range): BP systolic 156–171; BP diastolic 85–92; PULSE 90–98; RESP 15–30; TEMP 36.1; O2SAT 94–99
--- NOTE | ~2023-10-12 | XR_ITS ---
XR chest 1V 10/12/2023 09:31 Indication: Chest wall pain Procedure: AP view of the chest Comparison: Comparison to multiple prior studies sequentially, with oldest reviewed study dated 07/04. Findings: Stable irregular soft tissue right paratracheal location, consistent with radiation fibrosi s. Status post right upper lobectomy. No acute focal pneumonia, edema or effusion. There is right api milli pleural thickening unchanged. There are cholecystectomy clips. Impression: 1: No acute cardiopulmonary disease. Stable irregular soft tissue right paramediastinal location, con sistent with radiation fibrosis. Reviewed, dictated and finalized at location B. T DESK Impression: 1: No acute cardiopulmonary disease. Stable irregular soft tissue right paramed iastinal location, consistent with radiation fibrosis.
--- NOTE | ~2023-10-12 | XR_ITS ---
XR knee LT 3V 10/12/2023 09:30 Indication: Left knee pain Procedure: 3 views left knee Comparison: Comparison to multiple prior studies sequentially, with oldest reviewed study dated 11/22. Findings: There is moderate polyarticular osteoarthritis of the left knee. No fracture or traumatic m alalignment. No significant joint effusion. Loose body posterior to the joint space. No acute fractur e or traumatic malalignment. Impression: 1: Moderate tricompartment osteoarthritis of the left knee. Reviewed, dictated and finalized at location B. EL POLISHER Impression: 1: Moderate tricompartment osteoarthritis of the left knee.
--- NOTE | ~2023-10-12 | CT_ITS ---
EXAMINATION: CT cervical spine wo con DATE: 10/12/2023 09:10 INDICATION: Neck pain. Trauma. TECHNIQUE: Computed tomography (CT) of the cervical spine was performed without intravenous contrast. The dose-length product was 380. mGy-cm. COMPARISON: CT dated 04/03/20202009 FINDINGS: There is reversal of cervical lordosis. There is degenerative anterolisthesis at at C4-5. T here is moderate disc narrowing at C5-6 and C6-7. Craniovertebral junction is normal. Odontoid proces s is normal. There is carotid atherosclerosis. There is chronic right apical pleural thickening/scarr ing. There is mild-moderate multilevel uncinate and facet hypertrophy. IMPRESSION: 1. No acute abnormality of the cervical spine. 2: Moderate cervical spondylosis with reversal of cervical lordosis. Reviewed, dictated and finalized at location B. EXAMINER
--- NOTE | ~2023-10-12 | XR_ITS ---
XR hip LT 2V w AP pelvis 10/12/2023 09:30 Indication: Left hip pain Procedure: 4 views left hip Comparison: 07/24/2023 Findings: There is moderate osteoarthritis of the left hip. Pelvic rings are intact. There is osteoar thritis of the right hip. There is lower lumbar spondylosis. Impression: 1: Moderate osteoarthritis of the hips. Reviewed, dictated and finalized at location B. A ARTIST Impression: 1: Moderate osteoarthritis of the hips.
--- NOTE | ~2023-10-12 | CT_ITS ---
EXAMINATION: CT brain wo con DATE: 10/12/2023 09:04 INDICATION: Head injury. TECHNIQUE: Computed tomography (CT) of the head was performed without intravenous contrast. The dose- length product was 605.33 mGy-cm. Automated exposure control and iterative reconstruction technique w ere employed. COMPARISON: CT dated 02/18/2023 FINDINGS: Generalized atrophy. There are scattered moderate periventricular and subcortical white mat ter changes, most likely related to small vessel ischemic disease (microangiopathy). No ventriculomeg poncho or midline shift. There is intracranial atherosclerosis. Paranasal sinuses and mastoids are pneum atized. No depressed skull fractures. IMPRESSION: 1. No acute intracranial abnormality. 2: Chronic age-related findings. Reviewed, dictated and finalized at location B. WORKER
--- NOTE | 2023-10-12 08:46 | ED.GENADULT ---
HPI - General Adult General Chief complaint: Fall Stated complaint: FALL Time Seen by Provider: 10/12/23 08:21 History of Present Illness HPI narrative: 73-year-old female presenting to emergency department for evaluation after having a ground level fall. Patient states that she was walking with her walker and was caring a large package this caused her to fall back. Patient is complaining chest pain neck pain left hip pain and left knee pain. Patient reports she has had frequent falls, and that this is her 3rd fall. Related Data Home Medications Medication Instructions Recorded Confirmed baclofen 10 mg tablet 10 mg PO TID PRN Hiccups 09/23/19 09/07/23 metformin 500 mg tablet 500 mg PO BID 09/23/19 09/07/23 omeprazole 40 mg capsule,delayed 40 mg PO DAILY 09/23/19 09/07/23 release vitamin B complex 1 cap PO BID 09/23/19 09/07/23 allopurinol 100 mg tablet 300 mg PO DAILY 01/21/20 09/07/23 apixaban 5 mg tablet (Eliquis) 5 mg PO BID 01/21/20 09/07/23 acetaminophen 500 mg tablet 500 mg PO Q6H PRN Pain 02/18/23 09/07/23 albuterol sulfate 90 mcg/actuation 2 puff inhalation Q6H PRN 02/18/23 09/07/23 aerosol inhaler (Ventolin HFA) Shortness Of Breath Or Wheezing fluticasone fur. 100 mcg-umeclid 1 inh inhalation DAILY 02/18/23 09/07/23 62.5 mcg-vilant 25 mcg inhalat.powder (Trelegy Ellipta) lisinopril 20 1 tablet PO HS 02/18/23 09/07/23 mg-hydrochlorothiazide 12.5 mg tablet montelukast 10 mg tablet 10 mg PO DAILY 02/18/23 09/07/23 calcium carbonate 600 mg calcium 600 mg PO DAILY 05/28/23 09/07/23 (1,500 mg) tablet (Calcium) carvedilol 6.25 mg tablet 6.25 mg PO Q12H 09/07/23 Allergies Allergy/AdvReac Type Severity Reaction Status Date / Time diclofenac Allergy Severe sob Verified 08/31/23 12:31 Penicillins Allergy Intermediate Itching Verified 08/31/23 12:31 penicillin V Allergy Itching Verified 08/31/23 12:31 Review of Systems Review of Systems: All systems reviewed & are unremarkable except as noted in HPI and below PMFSH Past Medical History Medical History Adenomatous colon polyp Arthritis Cancer lung and lymphnodes 2012 and 2014 COPD (chronic obstructive pulmonary disease) uses inhaler, right upper lobe removed lung cancer 2012;lower lobe and lymphnodes 2014 CVA (cerebral vascular accident) 06/2018 TPA administered and rehab-pt states now no residual effect Diabetes last A1C=5.9 (10/2019) DVT (deep venous thrombosis) ESR raised ESR raised GERD (gastroesophageal reflux disease) Gout History of chemotherapy HTN (hypertension) Hx of pulmonary embolus Hx of radiation therapy Hypercholesterolemia Inflammatory arthritis Lung cancer Neuropathy Neutropenia Obesity Osteoarthritis of left knee Peripheral neuropathy Shingles Sleep apnea Surgical History Surgical History History of dilatation and curettage History of endoscopy History of esophagogastroduodenoscopy (EGD) History of lobectomy of lung History of removal of Port-a-Cath History of right knee joint replacement 2014 History of total right knee replacement (TKR) partialknee Hx of cholecystectomy Hx of colonoscopy Hx of tonsillectomy Hx of total hysterectomy Family History Family History Mother Carcinoma of colon Cerebrovascular accident Father Family history of heart disease in male family member before age 55 Sibling Family history of hypercholesterolemia Hypertension Glaucoma Other Family history of lung cancer Family history of malignant neoplasm of bone Family history of malignant neoplasm of urinary bladder Social History Social History Social History: She is . She has no children. Her sister is her poa. She is Retired from banking. She denies alcohol use and marjuana. She lives
--- NOTE | 2023-10-12 08:48 | ECG_ITS ---
Measurements Intervals [place] Rate: 89 P: 42 [place]: 204 QRS: 3 QRSD: 90 T: 35 QT: 362 QTc: 443 Interpretive Statements SINUS RHYTHM WITHIN NORMAL LIMITS COMPARED TO ECG 07/11/2022 13:03:53 NO SIGNIFICANT CHANGE Electronically Signed On 10-12-2023 10:47:34 PRESSURE STEAMER TENDER by Vinod Pedroza M.D.
[2023-10-12 09:54] LABS: Basophils Percent Auto 0.7 % (0.2-1.2); Eosinophils Absolute Auto 0.1 K/mm3 (0-0.3); Eosinophils Percent Auto 2.2 % (0-4.4); Hemoglobin 13.8 g/dL (12.0-15.0); Immature Granulocyte Absolute 0.01 K/mm3 (0.00-0.031); Immature Granulocyte Percent A 0.2 % (0-0.5); Lymphocytes Absolute Auto 1.16 K/mm3 (0.9-3.2); Lymphocytes Percent Auto 20.9 % (18.3-44.2); Mean Corpuscular HGB Conc 31.4 g/dl (32-36); Mean Corpuscular Hemoglobin 30.9 pg (26-34); Mean Corpuscular Volume 98.7 fl (80-100); Mean Platelet Volume 9.2 fl (7.4-10.4); Monocytes Absolute Auto 0.6 K/mm3 (0.1-0.6); Monocytes Percent Auto 11.2 % (2.6-8.5); Neutrophils Absolute Auto 3.6 K/mm3 (1.3-6.7); Neutrophils Percent Auto 64.8 % (45.5-73.1); Platelet Count Result 185 k/mm3 (150-375); Red Blood Count 4.46 M/mm3 (4.2-5.4); Red Cell Distribution Width 14.3 % (11.5-14.5); White Blood Count 5.5 K/mm3 (4.5-10.0)
[2023-10-12 10:03] LABS: Alanine Aminotransferase 28 U/L (6-35); Albumin Level 4.3 g/dL (3.5-5.1); Alkaline Phosphatase 145 U/L (38-126); Anion Gap 7 mmol/L (8-16); Aspartate Amino Transferase 31 U/L (14-36); Bilirubin,Total 0.6 mg/dL (0.2-1.3); Blood Urea Nitrogen 16 mg/dL (7-17); Calcium 9.2 mg/dL (8.4-10.2); Carbon Dioxide 30 mmol/L (22-30); Chloride 104 mmol/L (98-107); Estimated CRCL calculation 59 ml/min; Estimated Glomerular Filt Rate > 60; Glucose 99 mg/dL (65-110); Potassium 4.2 mmol/L (3.4-5.0); Sodium 141 mmol/L (137-145)
[2023-10-12 10:15] LABS: Troponin I < 0.012 ng/mL (0.000-0.034)
[2023-10-12] MEDS: ACETAMINOPHEN 325 MG TABLET 650 MG PO (10:52)
== END 2023-10-12 13:43 ==
PROVIDERS: Emergency Provider Emergency Medicine; PCP Internal Medicine
DX: S79.912A Unspecified injury of left hip, initial encounter (principal); R07.89 Other chest pain; R51.9 Headache, unspecified; E11.42 Type 2 diabetes mellitus with diabetic polyneuropathy; E78.00 Pure hypercholesterolemia, unspecified; G47.30 Sleep apnea, unspecified; M10.9 Gout, unspecified; M17.12 Unilateral primary osteoarthritis, left knee; M16.0 Bilateral primary osteoarthritis of hip; K21.9 Gastro-esophageal reflux disease without esophagitis; Z85.118 Personal history of other malignant neoplasm of bronchus and lung; Z86.711 Personal history of pulmonary embolism; Z86.718 Personal history of other venous thrombosis and embolism; Z86.73 Personal history of transient ischemic attack (TIA), and cerebral infarction without residual deficits; Z86.010 Personal history of colon polyps; Z92.3 Personal history of irradiation; Z92.21 Personal history of antineoplastic chemotherapy; Z90.2 Acquired absence of lung [part of]; Z96.651 Presence of right artificial knee joint; Z87.891 Personal history of nicotine dependence; Z90.49 Acquired absence of other specified parts of digestive tract; Z90.710 Acquired absence of both cervix and uterus; Z79.01 Long term (current) use of anticoagulants; Z79.84 Long term (current) use of oral hypoglycemic drugs; M47.812 Spondylosis without myelopathy or radiculopathy, cervical region; W18.39XA Other fall on same level, initial encounter
CPT/HCPCS: 36415; 70450; 71045; 72125; 73502; 73562; 80053; 84484; 85025; 93005; 99284; A9270

== ENCOUNTER 2023-12-07 18:32 | Emergency (ER) | payer MEDICARE, SELFPAY ==
[2023-12-07] VITALS (29 sets, daily range): BP systolic 102–140; BP diastolic 47–66; PULSE 92–117; RESP 14–28; TEMP 36.8; O2SAT 93–100
--- NOTE | ~2023-12-07 | CT_ITS ---
EXAMINATION: CT abdomen pelvis w con DATE: 12/07/2023 20:45 INDICATION: Right lower quadrant tenderness and diarrhea TECHNIQUE: Computed tomography (CT) of the abdomen and pelvis was performed with 100 mL Omnipaque-350 intravenous contrast. Automated exposure control and iterative reconstruction technique were employe d. The dose-length product was 1368.19 mGy-cm. COMPARISON: CT dated 11/18/2022 FINDINGS: No significant change from fine reticulonodular opacities at the bilateral lung bases consistent with chronic interstitial lung disease. There are couple larger pulmonary nodules at the medial basilar r ight lower lobe which are new since the prior study. This includes a bilobed nodule measuring 2.0 x 0 .7 cm and a smaller 10 x 5 mm nodule. Calcified left lower lobe nodule consistent with old granulomat ous disease. Heart size is normal. Atherosclerotic coronary artery calcific lesion. No pericardial or pleural effusion. Small sliding-type hiatal hernia. Cholecystectomy clips at gallbladder fossa. Live r, spleen, pancreas and bilateral adrenal glands are normal. There are regions of mild cortical atrop hy at both kidneys. Subcentimeter left renal cyst. There is moderate sigmoid diverticulosis without a djacent inflammatory change to suggest diverticulitis. Small bowel and appendix are normal. The latte r is normal. The uterus is not identified and has likely been surgically resected. No free intraperit darnell gas or fluid. No pathologically enlarged abdominal or pelvic lymphadenopathy. Severe spondylosi s at L5-S1. Mild spondylosis in the more cephalad lumbar and lower thoracic spine. IMPRESSION: 1. No acute intra-abdominal/pelvic process. Specifically the appendix is normal. 2. Couple indeterminate new pulmonary nodules at the anterobasilar right lower lobe largest a 2.0 x 0 .7 cm bilobed nodule which raises concern for metastatic disease in this patient with known prior rig ht lung cancer. 3. Small sliding-type hiatal hernia. 4. Sigmoid diverticulosis. Reviewed, dictated and finalized at location A. SCREEN LAYOUT DRAFTER IMPRESSION: 1. No acute intra-abdominal/pelvic process. Specifically the appendix is normal . 2. Couple indeterminate new pulmonary nodules at the anterobasilar right lower lobe largest a 2.0 x 0.7 cm bilobed nodule which raises concern for metastatic disease in this patient with known prior right lung cancer. 3. Small sliding-type hiatal hernia. 4. Sigmoid diverticulosis.
--- NOTE | ~2023-12-07 | XR_ITS ---
EXAMINATION: XR chest 1V portable DATE: 12/07/2023 19:29 INDICATION: Transient episode of unresponsiveness TECHNIQUE: frontal view of the chest was obtained. COMPARISON: Chest radiograph dated 10/12/2023 and 07/11/[address] dated 11/18/2022 FINDINGS: Again seen is volume loss in the right hemithorax with elevation of the right hilum and right hemidia phragm and suture line in the suprahilar region consistent with a right upper lobectomy for reported prior lung cancer. Persistent opacities in the right upper lung zone and masslike opacity at the righ t hilum with appearance on prior CT favoring radiation fibrosis. Left lung remains clear. No pulmonar y edema, pleural effusion or pneumothorax. Heart size is normal with prominent left cardiophrenic fat pad. Cholecystectomy clips in right upper quadrant. IMPRESSION: 1. Stable appearance of prior right upper lobectomy and right hilar and suprahilar opacities likely r elated to radiation fibrosis for treatment of a prior reported lung cancer. No acute cardiopulmonary disease. Reviewed, dictated and finalized at location A. TITATIVE RESEARCHER IMPRESSION: 1. Stable appearance of prior right upper lobectomy and right hilar and suprahi lar opacities likely related to radiation fibrosis for treatment of a prior rep orted lung cancer. No acute cardiopulmonary disease.
--- NOTE | ~2023-12-07 | CT_ITS ---
EXAMINATION: CT brain wo con DATE: 12/07/2023 19:27 INDICATION: Transient episode of unresponsiveness TECHNIQUE: Computed tomography (CT) of the head was performed without intravenous contrast. Sagittal and coronal reconstructions were performed. The mA was adjusted according to patient size. Iterative reconstruction technique was employed. The dose-length product was 605.33 mGy-cm. COMPARISON: head CT dated 10/12/23 FINDINGS: No acute intracranial hemorrhage, acute infarction or abnormal extra axial fluid collection. There is moderate to severe scattered white matter hypoattenuation consistent with chronic small vessel ische bladimir disease. Symmetric prominence of the sulci consistent with mild age-appropriate diffuse cerebral volume loss. Ventricles are normal and symmetric. No mass/mass effect. Small bilateral mastoid effusi ons. The orbits and paranasal sinuses are normal. Intracranial calcified cerebral atherosclerosis is noted at the bilateral carotid siphons. IMPRESSION: 1. No acute intracranial process. 2. Age-related changes including mild diffuse volume loss and moderate to severe scattered white lita er hypoattenuation consistent with chronic small vessel ischemic disease. Reviewed, dictated and finalized at location A. TING CODER IMPRESSION: 1. No acute intracranial process. 2. Age-related changes including mild diffuse volume loss and moderate to sever e scattered white matter hypoattenuation consistent with chronic small vessel i schemic disease.
--- NOTE | 2023-12-07 18:55 | PC.NURSE ---
PT INCONTINENT OF LARGE AMOUNT OF STOOL. PT WAS CLEANED UP, LINENS CHANGED. SKIN REDDENED BUT NO BREAKDOWN.
--- NOTE | 2023-12-07 19:02 | ECG_ITS ---
Measurements Intervals [place] Rate: 95 P: 46 [place]: 209 QRS: 10 QRSD: 90 T: 50 QT: 357 QTc: 450 Interpretive Statements SINUS RHYTHM COMPARED TO ECG 10/12/2023 09:34:50 NO SIGNIFICANT CHANGES Electronically Signed On 12-08-2023 12:28:41 DIRECTOR OF LEARNING by Guzman Buchanan M.D.
[2023-12-07 19:42] LABS: Glucose Point of Care 102 mg/dl (65-105)
[2023-12-07 19:45] LABS: Basophils Percent Auto 0.4 % (0.2-1.2); Eosinophils Absolute Auto 0.1 K/mm3 (0-0.3); Eosinophils Percent Auto 0.9 % (0-4.4); Hematocrit 39.9 % (37.0-47.0); Hemoglobin 12.6 g/dL (12.0-15.0); Immature Granulocyte Absolute 0.03 K/mm3 (0.00-0.031); Immature Granulocyte Percent A 0.4 % (0-0.5); Lymphocytes Absolute Auto 1.48 K/mm3 (0.9-3.2); Lymphocytes Percent Auto 18.3 % (18.3-44.2); Mean Corpuscular HGB Conc 31.6 g/dl (32-36); Mean Corpuscular Hemoglobin 31.7 pg (26-34); Mean Corpuscular Volume 100.3 fl (80-100); Mean Platelet Volume 10.2 fl (7.4-10.4); Monocytes Absolute Auto 0.8 K/mm3 (0.1-0.6); Monocytes Percent Auto 10.3 % (2.6-8.5); Neutrophils Absolute Auto 5.6 K/mm3 (1.3-6.7); Neutrophils Percent Auto 69.7 % (45.5-73.1); Platelet Count Result 187 k/mm3 (150-375); Red Blood Count 3.98 M/mm3 (4.2-5.4); White Blood Count 8.1 K/mm3 (4.5-10.0)
--- NOTE | 2023-12-07 19:46 | PC.NURSE ---
Report received from Karon,RN. Assumed care of patient at this time. Patient did state she was in her motorized w/c and felt the urge to have a BM, was on her way back to her room and stated she had a period of unresponsiveness. Patient did hit her call button to notify staff. Patient arrives a/ox3-4. ERP notified.
[2023-12-07 19:55] LABS: Prothrombin Time 13.7 Seconds (11.1-14.7)
[2023-12-07 19:56] LABS: Partial Thromboplastin Time 39.2 SECONDS (22.3-36.8)
[2023-12-07 19:58] LABS: Alanine Aminotransferase 21 U/L (6-35); Alkaline Phosphatase 145 U/L (38-126); Anion Gap 6 mmol/L (8-16); Aspartate Amino Transferase 24 U/L (14-36); Bilirubin,Total 0.5 mg/dL (0.2-1.3); Blood Urea Nitrogen 31 mg/dL (7-17); Calcium 9.3 mg/dL (8.4-10.2); Carbon Dioxide 33 mmol/L (22-30); Chloride 97 mmol/L (98-107); Estimated Glomerular Filt Rate 44; Glucose 115 mg/dL (65-110); Potassium 3.8 mmol/L (3.4-5.0); Sodium 136 mmol/L (137-145)
[2023-12-07 20:10] LABS: Troponin I < 0.012 ng/mL (0.000-0.034)
--- NOTE | 2023-12-07 20:22 | ED.SYNCOPE ---
HPI - Syncope General Chief Complaint: Neuro Symptoms/Deficit Stated Complaint: unresponsiveness, slow to respond Time Seen by Provider: 12/07/23 19:11 History of Present Illness HPI narrative: Patient is a 73-year-old female with a history of DVT on Eliquis, GERD, COPD, hypertension presenting with an episode of lightheadedness. Patient states that she was playing cards this afternoon when she had to have a bowel movement. She took her motorized scooter back to her room and started to feel lightheaded so she hit her call button. States that staff responded and they were concerned that she was unresponsive which she denies. She states that she was just lightheaded but she remembers the entire event. States that then EMS was called. States that she has been having diarrhea as well as increased urinary frequency for the last several days. She complains of right-sided abdominal pain. No chest pain, shortness of breath, cough, fevers, vomiting, leg swelling. Related Data Home Medications Medication Instructions Recorded Confirmed baclofen 10 mg tablet 10 mg PO TID PRN Hiccups 09/23/19 11/07/23 metformin 500 mg tablet 500 mg PO BID 09/23/19 11/07/23 omeprazole 40 mg capsule,delayed 40 mg PO DAILY 09/23/19 11/07/23 release vitamin B complex 1 cap PO BID 09/23/19 11/07/23 allopurinol 100 mg tablet 300 mg PO DAILY 01/21/20 11/07/23 apixaban 5 mg tablet (Eliquis) 5 mg PO BID 01/21/20 11/07/23 acetaminophen 500 mg tablet 500 mg PO Q6H PRN Pain 02/18/23 11/07/23 albuterol sulfate 90 mcg/actuation 2 puff inhalation Q6H PRN 02/18/23 11/07/23 aerosol inhaler (Ventolin HFA) Shortness Of Breath Or Wheezing fluticasone fur. 100 mcg-umeclid 1 inh inhalation DAILY 02/18/23 11/07/23 62.5 mcg-vilant 25 mcg inhalat.powder (Trelegy Ellipta) lisinopril 20 1 tablet PO HS 02/18/23 11/07/23 mg-hydrochlorothiazide 12.5 mg tablet montelukast 10 mg tablet 10 mg PO DAILY 02/18/23 11/07/23 calcium carbonate 600 mg calcium 600 mg PO DAILY 05/28/23 11/07/23 (1,500 mg) tablet (Calcium) carvedilol 6.25 mg tablet 6.25 mg PO Q12H 09/07/23 11/07/23 Allergies Allergy/AdvReac Type Severity Reaction Status Date / Time diclofenac Allergy Severe sob Verified 12/07/23 19:04 Penicillins Allergy Intermediate Itching Verified 12/07/23 19:04 penicillin V Allergy Itching Verified 12/07/23 19:04 Review of Systems Review of Systems: All systems reviewed & are unremarkable except as noted in HPI and below PMFSH Past Medical History Medical History Adenomatous colon polyp Arthritis Cancer lung and lymphnodes 2012 and 2014 COPD (chronic obstructive pulmonary disease) uses inhaler, right upper lobe removed lung cancer 2012;lower lobe and lymphnodes 2014 CVA (cerebral vascular accident) 06/2018 TPA administered and rehab-pt states now no residual effect Diabetes last A1C=5.9 (10/2019) DVT (deep venous thrombosis) ESR raised ESR raised GERD (gastroesophageal reflux disease) Gout History of chemotherapy HTN (hypertension) Hx of pulmonary embolus Hx of radiation therapy Hypercholesterolemia Inflammatory arthritis Lung cancer Neuropathy Neutropenia Obesity Osteoarthritis of left knee Peripheral neuropathy Shingles Sleep apnea Surgical History Surgical History History of dilatation and curettage History of endoscopy History of esophagogastroduodenoscopy (EGD) History of lobectomy of lung History of removal of Port-a-Cath History of right knee joint replacement 2014 History of total right knee replacement (TKR) partialknee Hx of cholecystectomy Hx of colonoscopy Hx of tonsillectomy Hx of total hysterectomy Family History Family History Mother Carcinoma of colon Cerebrovascular accident Father Family history of heart disease in male family member before age
[2023-12-07 20:49] LABS: Lipase 177 U/L (23-300)
[2023-12-07] MEDS: SODIUM CHLORIDE 0.9% IV 1,000 ML 999 ML IV CONT (20:49)
[2023-12-07 21:03] LABS: Appearance Urine Clear (Clear); Bilirubin Urine Negative (Negative); Blood Urine Negative (Negative); Color Urine Dark Yellow (Yellow); Glucose Urine UA Negative (Negative); Ketones Urine Negative (Negative); Leukocyte Esterase Ur Negative LEU/UL (Negative); Nitrate Urine Negative (Negative); Protein Urine Negative (Negative); Specific Grav Ur 1.035 (1.001-1.035); Urobilinogen Urine 0.2 mg/dL (<2.0)
[2023-12-07 21:08] LABS: Add Urine Microscopic? NO
[2023-12-07 21:38] LABS: Influenza A QL RT-PCR Negative (Negative); Influenza B QL RT-PCR Negative (Negative); RSV RNA, RT-PCR Negative (Negative); SARS-CoV-2 RNA PCR Negative (Negative)
--- NOTE | 2023-12-07 22:07 | PC.NURSE ---
Patients sister calls to get update on patient. This RN informed her of update and plan of care.
== END 2023-12-07 22:59 ==
PROVIDERS: Student in an Organized Health Care Education/Training Program; Emergency Provider Emergency Medicine; PCP Internal Medicine
DX: E86.0 Dehydration (principal); R42 Dizziness and giddiness; R19.7 Diarrhea, unspecified; I10 Essential (primary) hypertension; J44.9 Chronic obstructive pulmonary disease, unspecified; E11.42 Type 2 diabetes mellitus with diabetic polyneuropathy; K21.9 Gastro-esophageal reflux disease without esophagitis; M17.11 Unilateral primary osteoarthritis, right knee; M10.9 Gout, unspecified; G47.30 Sleep apnea, unspecified; Z96.653 Presence of artificial knee joint, bilateral; Z86.718 Personal history of other venous thrombosis and embolism; Z85.118 Personal history of other malignant neoplasm of bronchus and lung; Z85.79 Personal history of other malignant neoplasms of lymphoid, hematopoietic and related tissues; Z86.010 Personal history of colon polyps; Z86.711 Personal history of pulmonary embolism; Z92.3 Personal history of irradiation; Z92.21 Personal history of antineoplastic chemotherapy; Z86.73 Personal history of transient ischemic attack (TIA), and cerebral infarction without residual deficits; Z90.2 Acquired absence of lung [part of]; Z20.822 Contact with and (suspected) exposure to COVID-19; Z90.49 Acquired absence of other specified parts of digestive tract; Z90.710 Acquired absence of both cervix and uterus; Z79.01 Long term (current) use of anticoagulants; Z79.84 Long term (current) use of oral hypoglycemic drugs
CPT/HCPCS: 36415; 70450; 71045; 74177; 80053; 81003; 82948; 83690; 84484; 85025; 85610; 85730; 87637; 93005; 96360; 99284; J7030; Q9967

== ENCOUNTER 2024-01-27 09:13 | Emergency (ER) | payer MEDICARE, SELFPAY ==
[2024-01-27] VITALS (7 sets, daily range): BP systolic 97–126; BP diastolic 59–67; PULSE 78–94; RESP 12–17; TEMP 36.3; O2SAT 96–98
--- NOTE | ~2024-01-27 | CT_ITS ---
EXAMINATION: CT brain wo con DATE: 01/27/2024 10:10 INDICATION: Syncope TECHNIQUE: Computed tomography (CT) of the head was performed without intravenous contrast. The dose- length product was 529.67 mGy-cm. Automated exposure control and iterative reconstruction technique w ere employed. COMPARISON: CT dated 12/07/2023 FINDINGS: Generalized atrophy. There are scattered moderate periventricular and subcortical white mat ter changes, most likely related to small vessel ischemic disease (microangiopathy). No ventriculomeg poncho or midline shift. Basilar cisterns are patent. No acute intracranial hemorrhage, infarction or ma ss. There is intracranial atherosclerosis. Paranasal sinuses and mastoids are pneumatized. IMPRESSION: 1. No acute intracranial abnormality. Reviewed, dictated and finalized at location A.
--- NOTE | 2024-01-27 09:22 | ECG_ITS ---
Measurements Intervals [place] Rate: 86 P: 39 [place]: 189 QRS: 12 QRSD: 92 T: 49 QT: 373 QTc: 448 Interpretive Statements SINUS RHYTHM EARLY PRECORDIAL R/S TRANSITION BASELINE ARTIFACT- I, II, III, AVR, AVL, AVF, V1 BORDERLINE ECG COMPARED TO ECG 12/07/2023 19:12:59 NO SIGNIFICANT CHANGES Electronically Signed On 01-27-2024 12:14:26 CDT by Simon Olivares D.O.
--- NOTE | 2024-01-27 09:41 | ED.SYNCOPE ---
HPI - Syncope General Chief Complaint: Syncope Stated Complaint: syncopy Time Seen by Provider: 01/27/24 09:29 Source: patient and EMS Mode of arrival: EMS Limitations: no limitations History of Present Illness HPI narrative: 73-year-old female presenting for presyncopal episode at nursing facility. She was on the toilet having a bowel movement when she got lightheaded and nauseous. Says that she felt like she was going to pass out but did not fully pass out. According to jail staff, she was not responsive for a few seconds but then was arousable. Currently she is asymptomatic and has no complaints. Says this has not happened before. Was asymptomatic this morning when she woke up and is feeling better now. Related Data Home Medications Medication Instructions Recorded Confirmed baclofen 10 mg tablet 10 mg PO TID PRN Hiccups 09/23/19 11/07/23 metformin 500 mg tablet 500 mg PO BID 09/23/19 11/07/23 omeprazole 40 mg capsule,delayed 40 mg PO DAILY 09/23/19 11/07/23 release vitamin B complex 1 cap PO BID 09/23/19 11/07/23 allopurinol 100 mg tablet 300 mg PO DAILY 01/21/20 11/07/23 apixaban 5 mg tablet (Eliquis) 5 mg PO BID 01/21/20 11/07/23 acetaminophen 500 mg tablet 500 mg PO Q6H PRN Pain 02/18/23 11/07/23 albuterol sulfate 90 mcg/actuation 2 puff inhalation Q6H PRN 02/18/23 11/07/23 aerosol inhaler (Ventolin HFA) Shortness Of Breath Or Wheezing fluticasone fur. 100 mcg-umeclid 1 inh inhalation DAILY 02/18/23 11/07/23 62.5 mcg-vilant 25 mcg inhalat.powder (Trelegy Ellipta) lisinopril 20 1 tablet PO HS 02/18/23 11/07/23 mg-hydrochlorothiazide 12.5 mg tablet montelukast 10 mg tablet 10 mg PO DAILY 02/18/23 11/07/23 calcium carbonate 600 mg calcium 600 mg PO DAILY 05/28/23 11/07/23 (1,500 mg) tablet (Calcium) carvedilol 6.25 mg tablet 6.25 mg PO Q12H 09/07/23 11/07/23 Allergies Allergy/AdvReac Type Severity Reaction Status Date / Time diclofenac Allergy Severe sob Verified 12/07/23 19:04 Penicillins Allergy Intermediate Itching Verified 12/07/23 19:04 penicillin V Allergy Itching Verified 12/07/23 19:04 Review of Systems Review of Systems: All systems reviewed & are unremarkable except as noted in HPI and below PMFSH Past Medical History Medical History Adenomatous colon polyp Arthritis Cancer lung and lymphnodes 2012 and 2014 COPD (chronic obstructive pulmonary disease) uses inhaler, right upper lobe removed lung cancer 2012;lower lobe and lymphnodes 2014 CVA (cerebral vascular accident) 06/2018 TPA administered and rehab-pt states now no residual effect Diabetes last A1C=5.9 (10/2019) DVT (deep venous thrombosis) ESR raised ESR raised GERD (gastroesophageal reflux disease) Gout History of chemotherapy HTN (hypertension) Hx of pulmonary embolus Hx of radiation therapy Hypercholesterolemia Inflammatory arthritis Lung cancer Neuropathy Neutropenia Obesity Osteoarthritis of left knee Peripheral neuropathy Shingles Sleep apnea Surgical History Surgical History History of dilatation and curettage History of endoscopy History of esophagogastroduodenoscopy (EGD) History of lobectomy of lung History of removal of Port-a-Cath History of right knee joint replacement 2014 History of total right knee replacement (TKR) partialknee Hx of cholecystectomy Hx of colonoscopy Hx of tonsillectomy Hx of total hysterectomy Family History Family History Mother Carcinoma of colon Cerebrovascular accident Father Family history of heart disease in male family member before age 55 Sibling Family history of hypercholesterolemia Hypertension Glaucoma Other Family history of lung cancer Family history of malignant neoplasm of bone Family history of malignant neoplasm of urinary bladder Social History
[2024-01-27 09:45] LABS: Basophils Percent Auto 0.6 % (0.2-1.2); Eosinophils Absolute Auto 0.2 K/mm3 (0-0.3); Eosinophils Percent Auto 2.5 % (0-4.4); Hemoglobin 11.6 g/dL (12.0-15.0); Immature Granulocyte Absolute 0.04 K/mm3 (0.00-0.031); Immature Granulocyte Percent A 0.6 % (0-0.5); Lymphocytes Absolute Auto 1.19 K/mm3 (0.9-3.2); Lymphocytes Percent Auto 16.4 % (18.3-44.2); Mean Corpuscular HGB Conc 31.4 g/dl (32-36); Mean Corpuscular Volume 102.2 fl (80-100); Monocytes Absolute Auto 0.8 K/mm3 (0.1-0.6); Neutrophils Percent Auto 68.9 % (45.5-73.1); Platelet Count Result 195 k/mm3 (150-375); Red Blood Count 3.62 M/mm3 (4.2-5.4); Red Cell Distribution Width 13.2 % (11.5-14.5); White Blood Count 7.3 K/mm3 (4.5-10.0)
[2024-01-27] MEDS: SODIUM CHLORIDE 0.9% IV 500 ML 999 ML IV CONT ×2 (09:47→11:57)
[2024-01-27 09:57] LABS: Alanine Aminotransferase 16 U/L (6-35); Albumin Level 3.7 g/dL (3.5-5.1); Alkaline Phosphatase 140 U/L (38-126); Anion Gap 4 mmol/L (8-16); Aspartate Amino Transferase 24 U/L (14-36); Bilirubin,Total 0.4 mg/dL (0.2-1.3); Blood Urea Nitrogen 21 mg/dL (7-17); Calcium 8.6 mg/dL (8.4-10.2); Carbon Dioxide 33 mmol/L (22-30); Chloride 102 mmol/L (98-107); Estimated CRCL calculation 48 ml/min; Estimated Glomerular Filt Rate 54; Glucose 145 mg/dL (65-110); Potassium 3.9 mmol/L (3.4-5.0); Sodium 139 mmol/L (137-145)
[2024-01-27 10:24] LABS: Troponin I < 0.012 ng/mL (0.000-0.034)
[2024-01-27 11:14] LABS: Add Urine Microscopic? NO
[2024-01-27 11:15] LABS: Appearance Urine Clear (Clear); Bilirubin Urine Negative (Negative); Blood Urine Negative (Negative); Color Urine Yellow (Yellow); Glucose Urine UA Negative (Negative); Ketones Urine Negative (Negative); Nitrate Urine Negative (Negative); Protein Urine Negative (Negative); Urobilinogen Urine 0.2 mg/dL (<2.0); pH Urine 5.5 (5.0-9.0)
[2024-01-27 11:16] LABS: Leukocyte Esterase Ur Negative LEU/UL (Negative)
== END 2024-01-27 16:04 ==
PROVIDERS: Emergency Provider Emergency Medicine; PCP Internal Medicine
DX: R55 Syncope and collapse (principal); J44.9 Chronic obstructive pulmonary disease, unspecified; E11.40 Type 2 diabetes mellitus with diabetic neuropathy, unspecified; E78.00 Pure hypercholesterolemia, unspecified; E66.9 Obesity, unspecified; Z68.33 Body mass index [BMI] 33.0-33.9, adult; G47.30 Sleep apnea, unspecified; K21.9 Gastro-esophageal reflux disease without esophagitis; M19.90 Unspecified osteoarthritis, unspecified site; M10.9 Gout, unspecified; Z86.010 Personal history of colon polyps; Z92.3 Personal history of irradiation; Z92.21 Personal history of antineoplastic chemotherapy; Z86.73 Personal history of transient ischemic attack (TIA), and cerebral infarction without residual deficits; Z86.711 Personal history of pulmonary embolism; Z86.718 Personal history of other venous thrombosis and embolism; Z85.118 Personal history of other malignant neoplasm of bronchus and lung; Z85.79 Personal history of other malignant neoplasms of lymphoid, hematopoietic and related tissues; Z79.01 Long term (current) use of anticoagulants; Z79.84 Long term (current) use of oral hypoglycemic drugs; R94.31 Abnormal electrocardiogram [ECG] [EKG]
CPT/HCPCS: 36415; 70450; 80053; 81003; 84484; 85025; 93005; 96360; 96361; 99284; J7040

== ENCOUNTER 2024-01-31 23:48 | Inpatient (IN) | payer MEDICARE, SELFPAY ==
--- NOTE | ~2024-01-31 | CT_ITS ---
EXAMINATION: CT chest abdomen pelvis w con DATE: 02/01/2024 02:02 INDICATION: Sepsis, history of lung cancer TECHNIQUE: Transaxial computed tomographic images of the chest, abdomen, and pelvis were obtained aft er the administration of 100 cc of Omnipaque 350 intravenous contrast. The dose-length product (DLP) was 1185.97 mGy-cm. Automated exposure control and iterative reconstruction technique were employed. COMPARISON: 12/07/2023, 11/18/2022 FINDINGS: CHEST CT: There is near complete opacification of the left upper lobe. There are chronic airspace opacities in the superior segment of the right lower lobe. Bronchial wall thickening and minimal airspace opacitie s are present in the right lower lobe. Previously described nodules of the right lower lobe have slig htly decreased in size, possibly resolving infection. There is a stable 5 mm nodule of the left lower lobe. The heart size is normal. Calcified coronary artery atherosclerosis is noted. ABDOMEN/PELVIS CT: There is a small sliding hiatal hernia. Changes of cholecystectomy are noted. The liver, spleen, panc reas, and adrenal glands are normal. There is mild atrophy of the otherwise unremarkable kidneys. No pathologically enlarged abdominal or pelvic lymph nodes are identified. No free intraperitoneal gas o r evidence of bowel obstruction. Colonic diverticulosis is present without evidence of diverticulitis . There is severe lower lumbar spondylosis. IMPRESSION: 1. Near complete opacification of the right upper lobe which could be due to infection or malignancy given patient's history of lung cancer. 2. Relatively stable findings in the superior segment of the right lower lobe, likely treated maligna ncy. 3. Indeterminate 5 mm nodule of the left lower lobe. 4. No acute findings of the abdomen or pelvis. Reviewed, dictated and finalized at location A. IMPRESSION: 1. Near complete opacification of the right upper lobe which could be due to in fection or malignancy given patient's history of lung cancer. 2. Relatively stable findings in the superior segment of the right lower lobe, likely treated malignancy. 3. Indeterminate 5 mm nodule of the left lower lobe. 4. No acute findings of the abdomen or pelvis.
[2024-01-31 23:49] VITALS: BP 132/96; PULSE 134; RESP 24; TEMP 37.6; O2SAT 95
--- NOTE | 2024-01-31 23:55 | ECG_ITS ---
Measurements Intervals [place] Rate: 133 P: 40 MO: 160 QRS: 2 QRSD: 80 T: 61 QT: 371 QTc: 552 Interpretive Statements SINUS TACHYCARDIA LOW QRS VOLTAGE IN PRECORDIAL LEADS ST-T WAVE ABNORMALITY IN HIGH LATERAL LEADS- CONSIDER ISCHEMIA BASELINE ARTIFACT- I, II, III, AVR, AVL, AVF, V1-V6 ABNORMAL ECG COMPARED TO ECG 01/27/2024 09:22:47 [address]IN[address]YCARDIA NOW PRESENT ST-T WAVE ABNORMALITY NOW PRESENT Electronically Signed On 02-01-2024 6:26:48 CDT by Simon Olivares D.O.
[2024-02-01] VITALS (17 sets, daily range): BP systolic 106–154; BP diastolic 49–89; PULSE 92–127; RESP 14–24; TEMP 36.6–36.8; O2SAT 83–100; BMI 35.0
[2024-02-01 00:23] LABS: Basophils Absolute Auto 0.1 K/mm3 (0.0-0.1); Basophils Percent Auto 0.3 % (0.2-1.2); Eosinophils Percent Auto 0.2 % (0-4.4); Hematocrit 38.5 % (37.0-47.0); Hemoglobin 12.4 g/dL (12.0-15.0); Immature Granulocyte Absolute 0.06 K/mm3 (0.00-0.031); Immature Granulocyte Percent A 0.4 % (0-0.5); Lymphocytes Absolute Auto 0.85 K/mm3 (0.9-3.2); Lymphocytes Percent Auto 5.5 % (18.3-44.2); Mean Corpuscular HGB Conc 32.2 g/dl (32-36); Mean Corpuscular Hemoglobin 32.3 pg (26-34); Mean Corpuscular Volume 100.3 fl (80-100); Mean Platelet Volume 10.5 fl (7.4-10.4); Monocytes Percent Auto 6.5 % (2.6-8.5); Neutrophils Absolute Auto 13.4 K/mm3 (1.3-6.7); Neutrophils Percent Auto 87.1 % (45.5-73.1); Platelet Count Result 195 k/mm3 (150-375); Red Blood Count 3.84 M/mm3 (4.2-5.4); Red Cell Distribution Width 13.2 % (11.5-14.5); White Blood Count 15.4 K/mm3 (4.5-10.0)
[2024-02-01 00:27] LABS: Prothrombin Time 13.5 Seconds (11.1-14.7)
[2024-02-01 00:28] LABS: Alanine Aminotransferase 18 U/L (6-35); Albumin Level 4.2 g/dL (3.5-5.1); Alkaline Phosphatase 158 U/L (38-126); Anion Gap 7 mmol/L (4-12); Aspartate Amino Transferase 28 U/L (14-36); Bilirubin,Total 0.7 mg/dL (0.2-1.3); Blood Urea Nitrogen 36 mg/dL (7-17); Calcium 8.9 mg/dL (8.4-10.2); Carbon Dioxide 32 mmol/L (22-30); Chloride 100 mmol/L (98-107); Estimated CRCL calculation 37 ml/min; Estimated Glomerular Filt Rate 40; Glucose 157 mg/dL (65-110); Potassium 3.8 mmol/L (3.4-5.0); Sodium 139 mmol/L (137-145)
[2024-02-01 00:29] LABS: Partial Thromboplastin Time 30.6 Seconds (22.3-36.8)
[2024-02-01 01:26] LABS: Appearance Urine Cloudy (Clear); Bacteria Urine 4+ /hpf; Bilirubin Urine Negative (Negative); Blood Urine Trace (Negative); Budding Yeast Urine Present /hpf; Color Urine Yellow (Yellow); Glucose Urine UA Negative (Negative); Ketones Urine Trace mg/dL (Negative); Leukocyte Esterase Ur 2+ LEU/UL (Negative); Need Manual Microscopic Reviewed; Nitrate Urine Positive (Negative); Non Pathogenic Casts 0-2; Protein Urine Trace mg/dL (Negative); RBC Urine 0-2 /hpf (0-2); Specific Grav Ur 1.019 (1.001-1.035); Squamous Epithelial Cell Urine Few /hpf (Few); Urobilinogen Urine 0.2 mg/dL (<2.0); WBC Urine 51-100 /hpf (0-3); pH Urine 5.5 (5.0-9.0)
[2024-02-01 01:28] LABS: Add Urine Microscopic? YES
--- NOTE | 2024-02-01 01:41 | ED.AMS ---
HPI - Altered Mental Status General Chief Complaint: Altered Mental Status Stated Complaint: AMS - LKW IS UNKNOWN Time Seen by Provider: 02/01/24 01:38 History of Present Illness HPI narrative: Patient is a 73-year-old female who is presenting to the emergency department this evening from an extended care facility due to concern for shortness of breath and altered mental status. Patient is normally alert and oriented and recently she has been noted to be more lethargic and complaining of shortness of breath. Patient was also noted to be tachypneic. Patient does not use any home oxygen. Patient is answering my questions appropriately and denies any chest pain, nausea, vomiting, or any abdominal pain. There are no other modifying, alleviating, or precipitating factors at this time. Related Data Home Medications Medication Instructions Recorded Confirmed baclofen 10 mg tablet 10 mg PO TID PRN Hiccups 09/23/19 11/07/23 metformin 500 mg tablet 500 mg PO BID 09/23/19 11/07/23 omeprazole 40 mg capsule,delayed 40 mg PO DAILY 09/23/19 11/07/23 release vitamin B complex 1 cap PO BID 09/23/19 11/07/23 allopurinol 100 mg tablet 300 mg PO DAILY 01/21/20 11/07/23 apixaban 5 mg tablet (Eliquis) 5 mg PO BID 01/21/20 11/07/23 acetaminophen 500 mg tablet 500 mg PO Q6H PRN Pain 02/18/23 11/07/23 albuterol sulfate 90 mcg/actuation 2 puff inhalation Q6H PRN 02/18/23 11/07/23 aerosol inhaler (Ventolin HFA) Shortness Of Breath Or Wheezing fluticasone fur. 100 mcg-umeclid 1 inh inhalation DAILY 02/18/23 11/07/23 62.5 mcg-vilant 25 mcg inhalat.powder (Trelegy Ellipta) lisinopril 20 1 tablet PO HS 02/18/23 11/07/23 mg-hydrochlorothiazide 12.5 mg tablet montelukast 10 mg tablet 10 mg PO DAILY 02/18/23 11/07/23 calcium carbonate 600 mg calcium 600 mg PO DAILY 05/28/23 11/07/23 (1,500 mg) tablet (Calcium) carvedilol 6.25 mg tablet 6.25 mg PO Q12H 09/07/23 11/07/23 Allergies Allergy/AdvReac Type Severity Reaction Status Date / Time diclofenac Allergy Severe sob Verified 12/07/23 19:04 Penicillins Allergy Intermediate Itching Verified 12/07/23 19:04 penicillin V Allergy Itching Verified 12/07/23 19:04 Review of Systems Review of Systems: All systems are reviewed and are negative unless stated otherwise in the HPI. [facility] Past Medical History Medical History Adenomatous colon polyp Arthritis Cancer lung and lymphnodes 2012 and 2014 COPD (chronic obstructive pulmonary disease) uses inhaler, right upper lobe removed lung cancer 2012;lower lobe and lymphnodes 2014 CVA (cerebral vascular accident) 06/2018 TPA administered and rehab-pt states now no residual effect Diabetes last A1C=5.9 (10/2019) DVT (deep venous thrombosis) ESR raised ESR raised GERD (gastroesophageal reflux disease) Gout History of chemotherapy HTN (hypertension) Hx of pulmonary embolus Hx of radiation therapy Hypercholesterolemia Inflammatory arthritis Lung cancer Neuropathy Neutropenia Obesity Osteoarthritis of left knee Peripheral neuropathy Shingles Sleep apnea Surgical History Surgical History History of dilatation and curettage History of endoscopy History of esophagogastroduodenoscopy (EGD) History of lobectomy of lung History of removal of Port-a-Cath History of right knee joint replacement 2014 History of total right knee replacement (TKR) partialknee Hx of cholecystectomy Hx of colonoscopy Hx of tonsillectomy Hx of total hysterectomy Family History Family History Mother Carcinoma of colon Cerebrovascular accident Father Family history of heart disease in male family member before age 55 Sibling Family history of hypercholesterolemia Hypertension Glaucoma Other Family history of lung cancer Family history of malignant neoplasm of bone Family history
[2024-02-01] MEDS: SODIUM CHLORIDE 0.9% IV 1,000 ML 999 ML IV CONT ×2 (02:02→05:31)
[2024-02-01] MEDS: cefTRIAXone 2 GM/NS 100 ML 2 GM/100 ML BAG IVPB (02:03)
[2024-02-01] MEDS: ONDANSETRON INJ 4 MG/2 ML VIAL IV PUSH (02:09)
[2024-02-01] MEDS: AZITHROMYCIN 500 MG/NS 250 ML 500 MG/250 ML BAG 250 MG IVPB (02:51)
[2024-02-01 02:58] LABS: Lactic Acid Reflex 1.8 mmol/L (0.7-2.0)
[2024-02-01] MEDS: SODIUM CHLORIDE 0.9% IV 1,000 ML 100 ML IV CONT (05:37)
[2024-02-01 06:42] LABS: Influenza A QL RT-PCR Negative (Negative); Influenza B QL RT-PCR Negative (Negative); RSV RNA, RT-PCR Negative (Negative); SARS-CoV-2 RNA PCR Negative (Negative)
--- NOTE | 2024-02-01 07:28 | PM.IMHP ---
H&P: HPI History of Present Illness Date/Time: 02/01/24 07:28 Chief Complaint: Short of breath and altered mental status Narrative: Patient is a 73-year-old female with history of COPD, hypertension, hyperlipidemia, diabetes, PE and DVT, presented to the ED with a chief complaint of shortness of breath and confusion. Patient has been having cough with greenish phlegm in past few more days, getting worse today, patient develops dyspnea. The patient also has general weakness, and is found confused. Patient also has dysuria, urinary urgency frequency and suprapubic pain. Patient denies chest pain, nausea vomiting diarrhea abdomen pain. Patient came to ED for evaluation. Upon arrival in the ED, patient was found have tachycardia, tachypnea, hypoxemia pulse ox 86 on room air, low-grade fever. Labs showed leukocytosis, white blood cell 15.4, bicarb of 32, elevated BUN of 36 and creatinine 1.3.? Urinalysis revealed pyuria, trace ketones and a urinary tract infection positive for nitrites.? CT chest abdomen pelvis suggest right upper lobe pneumonia. In the ED, patient received IV fluids resuscitation, Rocephin and azithromycin to treat her UTI and cover her for pneumonia. We admit patient for further evaluation and treatment ? [facility] Past Medical History Medical History Adenomatous colon polyp Arthritis Cancer lung and lymphnodes 2012 and 2014 COPD (chronic obstructive pulmonary disease) uses inhaler, right upper lobe removed lung cancer 2012;lower lobe and lymphnodes 2014 CVA (cerebral vascular accident) 06/2018 TPA administered and rehab-pt states now no residual effect Diabetes last A1C=5.9 (10/2019) DVT (deep venous thrombosis) ESR raised ESR raised GERD (gastroesophageal reflux disease) Gout History of chemotherapy HTN (hypertension) Hx of pulmonary embolus Hx of radiation therapy Hypercholesterolemia Inflammatory arthritis Lung cancer Neuropathy Neutropenia Obesity Osteoarthritis of left knee Peripheral neuropathy Shingles Sleep apnea Surgical History Surgical History History of dilatation and curettage History of endoscopy History of esophagogastroduodenoscopy (EGD) History of lobectomy of lung History of removal of Port-a-Cath History of right knee joint replacement 2014 History of total right knee replacement (TKR) partialknee Hx of cholecystectomy Hx of colonoscopy Hx of tonsillectomy Hx of total hysterectomy Family History Family History Mother Carcinoma of colon Cerebrovascular accident Father Family history of heart disease in male family member before age 55 Sibling Family history of hypercholesterolemia Hypertension Glaucoma Other Family history of lung cancer Family history of malignant neoplasm of bone Family history of malignant neoplasm of urinary bladder Social History Social History Social History: She is . She has no children. Her sister is her poa. She is Retired from banking. She denies alcohol use and marjuana. She lives at [facility]. Code status modified code no intubation. Smoking packs per day: 1 Smoking cigarettes per day: 20.0 Years smoked: 30 Smoking pack-years: 30.00 Smoking status: Former smoker Second hand tobacco smoke exposure: Yes Alcohol intake: never Substance use: never Substance use type: does not use Do You Feel Safe in your Home?: Yes Lack of Transportation: No Lack of Food: Never True Current Housing: I Have Housing Concerned About Future Housing: No Difficulty Paying Gas/Electric Bills: No Difficulty Paying for Meds: No Currently Unemployed: No Education: High School Diploma/GED Difficulty w/ Childcare or Family Care: No Living arrangements: alone
--- NOTE | 2024-02-01 07:38 | ADMGEN ---
This patient, Zoe Hogue Dia, was admitted to Medical Room 345-. Patient/family oriented to hospital policies and general routines including ID bracelet, bed and alarms, visiting hours, pain management, procedures, bathroom and other care routines, personal items, smoking policy, room service/diet, and visiting hours. Information on how to activate the Rapid Response Team has been discussed. Patient/Family are encouraged to report perceived risks to care and to ask questions if they do not understand what they are told or what they should do.
[2024-02-01 08:36] LABS: Anion Gap 3 mmol/L (4-12); Blood Urea Nitrogen 23 mg/dL (7-17); Calcium 7.7 mg/dL (8.4-10.2); Carbon Dioxide 31 mmol/L (22-30); Chloride 108 mmol/L (98-107); Estimated CRCL calculation 45 ml/min; Estimated Glomerular Filt Rate 48; Glucose 119 mg/dL (65-110); Magnesium 1.2 mg/dL (1.6-2.3); Phosphorus 3.3 mg/dL (2.5-4.5); Potassium 3.6 mmol/L (3.4-5.0); Sodium 142 mmol/L (137-145)
[2024-02-01 08:40] LABS: Glucose Point of Care 105 mg/dl (65-105)
[2024-02-01] MEDS: APIXABAN 5 MG TABLET PO ×2 (08:57→17:22)
[2024-02-01] MEDS: DOXYCYCLINE HYCLATE 100 MG TABLET PO ×2 (08:57→20:14)
[2024-02-01] MEDS: IPRATROPIUM 0.5 MG/ALBUTEROL SULFATE 2.5 MG AMPUL.NEB 3 ML INHALATION ×3 (09:13→20:17)
[2024-02-01 09:19] LABS: Hemoglobin A1C 6.1 % (<5.7)
[2024-02-01 12:06] LABS: Glucose Point of Care 167 mg/dl (65-105)
[2024-02-01 12:07] LABS: Anion Gap 5 mmol/L (4-12); Blood Urea Nitrogen 22 mg/dL (7-17); Calcium 7.5 mg/dL (8.4-10.2); Carbon Dioxide 28 mmol/L (22-30); Chloride 106 mmol/L (98-107); Estimated CRCL calculation 45 ml/min; Estimated Glomerular Filt Rate 48; Glucose 169 mg/dL (65-110); Potassium 3.3 mmol/L (3.4-5.0); Sodium 139 mmol/L (137-145)
[2024-02-01] MEDS: methylPREDNISolone SOD SUCC 125 MG VIAL 60 MG IV PUSH ×3 (12:13→23:16)
[2024-02-01 16:04] LABS: Anion Gap 3 mmol/L (4-12); Blood Urea Nitrogen 21 mg/dL (7-17); Carbon Dioxide 29 mmol/L (22-30); Chloride 107 mmol/L (98-107); Estimated CRCL calculation 54 ml/min; Estimated Glomerular Filt Rate > 60; Glucose 140 mg/dL (65-110); Potassium 3.7 mmol/L (3.4-5.0); Sodium 139 mmol/L (137-145)
[2024-02-01 17:50] LABS: Glucose Point of Care 149 mg/dl (65-105)
[2024-02-02] VITALS (14 sets, daily range): BP systolic 127–134; BP diastolic 67–75; PULSE 83–110; RESP 18–21; TEMP 36–37; O2SAT 95–100
[2024-02-02] MEDS: cefTRIAXone 2 GM/NS 100 ML 2 GM/100 ML BAG IVPB (01:46)
[2024-02-02] MEDS: IPRATROPIUM 0.5 MG/ALBUTEROL SULFATE 2.5 MG AMPUL.NEB 3 ML INHALATION ×2 (02:41→20:57)
[2024-02-02] MEDS: methylPREDNISolone SOD SUCC 125 MG VIAL 60 MG IV PUSH ×3 (05:17→17:20)
[2024-02-02 08:39] LABS: Glucose Point of Care 170 mg/dl (65-105)
--- NOTE | 2024-02-02 09:12 | PM.IMPN ---
Progress Note: A&P Assessment and Plan (1) Sepsis: Code(s): A41.9 - Sepsis, unspecified organism Status: Acute (2) Acute UTI: Code(s): N39.0 - Urinary tract infection, site not specified Status: Acute (3) Acute kidney injury: Code(s): N17.9 - Acute kidney failure, unspecified Status: Acute (4) Dehydration: Code(s): E86.0 - Dehydration Status: Acute (5) Right upper lobe pneumonia: Code(s): J18.9 - Pneumonia, unspecified organism Status: Acute (6) COPD (chronic obstructive pulmonary disease): Code(s): J44.9 - Chronic obstructive pulmonary disease, unspecified Status: Acute (7) Hx of pulmonary embolus: Code(s): Z86.711 - Personal history of pulmonary embolism Status: Acute (8) Community acquired pneumonia: Qualifiers: Laterality: right Lung location: lower lobe of lung Qualified Code(s): J18.9 - Pneumonia, unspecified organism Code(s): J18.9 - Pneumonia, unspecified organism Status: Acute (9) Acute metabolic encephalopathy: Code(s): G93.41 - Metabolic encephalopathy Status: Acute Plan Patient is a 73-year-old female with history of COPD, hypertension, hyperlipidemia, diabetes, PE and DVT, presented to the ED with a chief complaint of shortness of breath and confusion. Patient has been having cough with greenish phlegm in past few more days, patient develops dyspnea. And patient also has dysuria, urinary urgency frequency. Upon arrival in the ED, patient was found have tachycardia, tachypnea, hypoxemia pulse ox 86 on room air, low-grade fever. Labs showed leukocytosis, white blood cell 15.4, bicarb of 32, elevated BUN of 36 and creatinine 1.3.? Urinalysis revealed pyuria, trace ketones and a urinary tract infection positive for nitrites.? CT chest abdomen pelvis suggest right upper lobe pneumonia. Sepsis Patient has tachycardia tachypnea, leukocytosis, meeting criteria of sepsis Likely resulting from pneumonia and UTI Patient received fluid resuscitation per sepsis protocol Continue normal saline IV 100ml/h Follow-up blood culture urine culture Urine culture grows E coli, pending susceptibility, blood culture negative of bacteria Continue ceftriaxone 2 g IV daily, start doxycycline 100 mg q.12 hours p.o. COPD exacerbation, acute hypoxemia, pneumonia Patient has history of COPD, and patient has a productive cough and developed dyspnea in past few more days CT is revealed upper lobe consolidation suggesting pneumonia, and patient was found hypoxemia pulse ox 86 on room air in the ED, Start DuoNeb scheduled q.6 hours, albuterol nebulizer q.4 hours as needed Start O2 therapy to keep pulse ox above 92 Start methylprednisolone 60 mg q.6 hours IV Acute urinary tract infection UA shows pyuria, positive urine nitrate, possible Gram-negative bacteria infection Patient is on ceftriaxone IV Follow-up urine culture : ecoli Acute renal failure Elevated BUN creatinine above baseline Likely secondary to sepsis and UTI received fluid resuscitation Follow-up BMP Avoid nephrotoxic medication now resolves Acute metabolic encephalopathy Patient was confused Possible secondary to sepsis, UTI and dehydration Neuro check A&O x 3 Essential hypertension Hold hypertension medication, blood pressure soft POA now stable History of PE DVT Continue Eliquis 5 mg b.i.d. p.o. Patient may stay more than 2 midnights in the hospital based on patient's condition Consult PT OT menagerie caretaker for evaluation and assisting placement Subjective Date/time seen: 02/02/24 09:12 Interval history: Patient is afebrile, over the night, blood pressure stable urine culture grows E coli, blood culture negative so far Exam Narrative: GENERAL: Ill-appearing, in no acute distress. Well-nourished. - EYES: EOMI. Anicteric. - HENT: Moist mucous membranes. - LUNGS: no wheezing, rhonchi, co
[2024-02-02] MEDS: PANTOPRAZOLE 40 MG TABLET PO (09:55)
[2024-02-02] MEDS: APIXABAN 5 MG TABLET PO ×2 (09:55→17:20)
[2024-02-02] MEDS: DOXYCYCLINE HYCLATE 100 MG TABLET PO ×2 (09:55→20:33)
[2024-02-02] MEDS: MONTELUKAST SODIUM 10 MG TABLET PO (09:55)
[2024-02-02] MEDS: ATORVASTATIN 10 MG TABLET PO (09:55)
[2024-02-02] MEDS: BACLOFEN 10 MG TABLET PO ×2 (09:59→12:46)
[2024-02-02] MEDS: SODIUM CHLORIDE 0.9% IV 1,000 ML 100 ML IV CONT (10:10)
[2024-02-02 11:01] LABS: Hematocrit 34.7 % (37.0-47.0); Hemoglobin 10.9 g/dL (12.0-15.0); Mean Corpuscular HGB Conc 31.4 g/dl (32-36); Mean Corpuscular Hemoglobin 32.3 pg (26-34); Mean Platelet Volume 9.8 fl (7.4-10.4); Platelet Count Result 184 k/mm3 (150-375); Red Blood Count 3.37 M/mm3 (4.2-5.4); Red Cell Distribution Width 13.2 % (11.5-14.5); White Blood Count 12.4 K/mm3 (4.5-10.0)
[2024-02-02 11:11] LABS: Anion Gap 7 mmol/L (4-12); Blood Urea Nitrogen 19 mg/dL (7-17); Calcium 8.2 mg/dL (8.4-10.2); Carbon Dioxide 28 mmol/L (22-30); Chloride 103 mmol/L (98-107); Estimated CRCL calculation 60 ml/min; Estimated Glomerular Filt Rate > 60; Glucose 330 mg/dL (65-110); Potassium 3.6 mmol/L (3.4-5.0); Sodium 138 mmol/L (137-145)
[2024-02-02 11:34] LABS: Band Neutrophils Percent 9 % (0-6); Lymphocytes Absolute Manual 0.37 K/mm3 (1.1-4.5); Lymphocytes Percent Manual 3 % (18-44); Monocytes Absolute Manual 0.24 K/mm3 (0.1-0.90); Monocytes Percent Manual 2 % (3-9); Neutrophils Absolute Manual 11.53 K/mm3 (1.7-7.2); Neutrophils Percent Manual 84 % (46-73); Promyelocytes Percent 2 %; Total Cells Counted 100
[2024-02-02 11:36] LABS: Platelet Estimate Adequate (Adequate)
[2024-02-02 11:37] LABS: Anisocytosis 1+; Schistocytes None Seen; Smudge Cells PRESENT
[2024-02-02 12:28] LABS: Glucose Point of Care 284 mg/dl (65-105)
[2024-02-02] MEDS: INSULIN ASPART (*BKC) 100 UNITS/ML SUB-Q (12:45)
[2024-02-02] MEDS: DOCUSATE SODIUM 100 MG CAPSULE PO (17:20)
[2024-02-02 17:28] LABS: Glucose Point of Care 162 mg/dl (65-105)
[2024-02-02 19:54] LABS: Glucose Point of Care 292 mg/dl (65-105)
[2024-02-03] VITALS (16 sets, daily range): BP systolic 136–143; BP diastolic 67–71; PULSE 87–126; RESP 18–19; TEMP 35.8–36.5; O2SAT 93–96
[2024-02-03] MEDS: methylPREDNISolone SOD SUCC 125 MG VIAL 60 MG IV PUSH ×3 (00:55→12:17)
[2024-02-03] MEDS: cefTRIAXone 2 GM/NS 100 ML 2 GM/100 ML BAG IVPB (02:26)
[2024-02-03] MEDS: IPRATROPIUM 0.5 MG/ALBUTEROL SULFATE 2.5 MG AMPUL.NEB 3 ML INHALATION ×4 (03:35→20:00)
[2024-02-03 06:15] LABS: Hematocrit 33.5 % (37.0-47.0); Hemoglobin 10.5 g/dL (12.0-15.0); Mean Corpuscular HGB Conc 31.3 g/dl (32-36); Mean Corpuscular Hemoglobin 31.8 pg (26-34); Mean Corpuscular Volume 101.5 fl (80-100); Mean Platelet Volume 9.9 fl (7.4-10.4); Platelet Count Result 193 k/mm3 (150-375); White Blood Count 9.2 K/mm3 (4.5-10.0)
[2024-02-03 06:22] LABS: Anion Gap 6 mmol/L (4-12); Blood Urea Nitrogen 20 mg/dL (7-17); Calcium 8.3 mg/dL (8.4-10.2); Carbon Dioxide 26 mmol/L (22-30); Chloride 106 mmol/L (98-107); Estimated CRCL calculation 68 ml/min; Estimated Glomerular Filt Rate > 60; Glucose 203 mg/dL (65-110); Potassium 3.2 mmol/L (3.4-5.0); Sodium 138 mmol/L (137-145)
[2024-02-03 07:32] LABS: Anisocytosis 1+; Band Neutrophils Percent 3 % (0-6); Lymphocytes Absolute Manual 0.36 K/mm3 (1.1-4.5); Lymphocytes Percent Manual 4 % (18-44); Monocytes Absolute Manual 0.18 K/mm3 (0.1-0.90); Monocytes Percent Manual 2 % (3-9); Neutrophils Absolute Manual 8.64 K/mm3 (1.7-7.2); Neutrophils Percent Manual 91 % (46-73); Platelet Estimate Adequate (Adequate); Schistocytes None Seen; Total Cells Counted 100
[2024-02-03] MEDS: PANTOPRAZOLE 40 MG TABLET PO (08:33)
[2024-02-03] MEDS: ATORVASTATIN 10 MG TABLET PO (08:33)
[2024-02-03] MEDS: MONTELUKAST SODIUM 10 MG TABLET PO (08:33)
[2024-02-03] MEDS: APIXABAN 5 MG TABLET PO ×2 (08:33→17:23)
[2024-02-03] MEDS: DOXYCYCLINE HYCLATE 100 MG TABLET PO ×2 (08:33→20:54)
[2024-02-03] MEDS: BACLOFEN 10 MG TABLET PO ×2 (08:36→22:14)
[2024-02-03 08:40] LABS: Glucose Point of Care 182 mg/dl (65-105)
[2024-02-03] MEDS: FLUTICASONE/UMECLIDIN/VILANTER 100-62.5-25 MCG ELLIPTA 1 PUFF INHALATION (09:34)
--- NOTE | 2024-02-03 10:08 | PM.IMPN ---
Progress Note: A&P Assessment and Plan (1) Sepsis: Code(s): A41.9 - Sepsis, unspecified organism Status: Acute (2) Acute UTI: Code(s): N39.0 - Urinary tract infection, site not specified Status: Acute (3) Acute kidney injury: Code(s): N17.9 - Acute kidney failure, unspecified Status: Acute (4) Dehydration: Code(s): E86.0 - Dehydration Status: Acute (5) Right upper lobe pneumonia: Code(s): J18.9 - Pneumonia, unspecified organism Status: Acute (6) COPD (chronic obstructive pulmonary disease): Code(s): J44.9 - Chronic obstructive pulmonary disease, unspecified Status: Acute (7) Hx of pulmonary embolus: Code(s): Z86.711 - Personal history of pulmonary embolism Status: Acute (8) Community acquired pneumonia: Qualifiers: Laterality: right Lung location: lower lobe of lung Qualified Code(s): J18.9 - Pneumonia, unspecified organism Code(s): J18.9 - Pneumonia, unspecified organism Status: Acute (9) Acute metabolic encephalopathy: Code(s): G93.41 - Metabolic encephalopathy Status: Acute Plan Patient is a 73-year-old female with history of COPD, hypertension, hyperlipidemia, diabetes, PE and DVT, presented to the ED with a chief complaint of shortness of breath and confusion. Patient has been having cough with greenish phlegm in past few more days, patient develops dyspnea. And patient also has dysuria, urinary urgency frequency. Upon arrival in the ED, patient was found have tachycardia, tachypnea, hypoxemia pulse ox 86 on room air, low-grade fever. Labs showed leukocytosis, white blood cell 15.4, bicarb of 32, elevated BUN of 36 and creatinine 1.3.? Urinalysis revealed pyuria, trace ketones and a urinary tract infection positive for nitrites.? CT chest abdomen pelvis suggest right upper lobe pneumonia. Sepsis Patient has tachycardia tachypnea, leukocytosis, meeting criteria of sepsis Likely resulting from pneumonia and UTI Patient received fluid resuscitation per sepsis protocol Continue normal saline IV 100ml/h Follow-up blood culture urine culture Urine culture grows E coli, ramirez susceptibility, blood culture negative of bacteria Continue ceftriaxone 2 g IV daily, start doxycycline 100 mg q.12 hours p.o. COPD exacerbation, acute hypoxemia, pneumonia Patient has history of COPD, and patient has a productive cough and developed dyspnea in past few more days CT is revealed upper lobe consolidation suggesting pneumonia, and patient was found hypoxemia pulse ox 86 on room air in the ED, Start DuoNeb scheduled q.6 hours, albuterol nebulizer q.4 hours as needed Start O2 therapy to keep pulse ox above 92 Start methylprednisolone 60 mg q.6 hours IV 01/31 Patient has denies short of breath, pulse ox 95% on room air, discontinue methylprednisone iv 02/02 Acute urinary tract infection UA shows pyuria, positive urine nitrate, possible Gram-negative bacteria infection Patient is on ceftriaxone IV Follow-up urine culture : ecoli Acute renal failure Elevated BUN creatinine above baseline Likely secondary to sepsis and UTI received fluid resuscitation Follow-up BMP Avoid nephrotoxic medication now resolves Acute metabolic encephalopathy Patient was confused Possible secondary to sepsis, UTI and dehydration Neuro check A&O x 3 Uncontrolled type 2 diabetes Likely secondary to corticosteroid Start aspart 5 units a.c. and q.h.s. Continue high-dose aspart sliding scale a.c. q.h.s. Essential hypertension Hold hypertension medication, blood pressure soft POA now stable History of PE DVT Continue Eliquis 5 mg b.i.d. p.o. Patient may stay more than 2 midnights in the hospital based on patient's condition Consult PT OT childcare teacher for evaluation and assisting placement Subjective Date/time seen: 02/03/24 10:08 Interval history: I saw exam patient today. Patient
[2024-02-03 11:47] LABS: Glucose Point of Care 385 mg/dl (65-105)
[2024-02-03] MEDS: INSULIN ASPART (*BKC) 100 UNITS/ML SUB-Q ×2 (12:18→17:24)
[2024-02-03 17:00] LABS: Glucose Point of Care 311 mg/dl (65-105)
[2024-02-03] MEDS: INSULIN ASPART (*BKC) 100 UNITS/ML 6 UNITS SUB-Q (17:25)
[2024-02-03 22:14] LABS: Glucose Point of Care 275 mg/dl (65-105)
[2024-02-04] VITALS (12 sets, daily range): BP systolic 140–157; BP diastolic 86–90; PULSE 101–133; RESP 18–20; TEMP 36.4; O2SAT 95
[2024-02-04] MEDS: IPRATROPIUM 0.5 MG/ALBUTEROL SULFATE 2.5 MG AMPUL.NEB 3 ML INHALATION ×3 (01:40→13:27)
[2024-02-04] MEDS: cefTRIAXone 2 GM/NS 100 ML 2 GM/100 ML BAG IVPB (02:06)
[2024-02-04] MEDS: FLUTICASONE/UMECLIDIN/VILANTER 100-62.5-25 MCG ELLIPTA 1 PUFF INHALATION (07:38)
--- NOTE | 2024-02-04 08:08 | PM.IMPN ---
Progress Note: A&P Assessment and Plan (1) Sepsis: Code(s): A41.9 - Sepsis, unspecified organism Status: Acute (2) Acute UTI: Code(s): N39.0 - Urinary tract infection, site not specified Status: Acute (3) Acute kidney injury: Code(s): N17.9 - Acute kidney failure, unspecified Status: Acute (4) Dehydration: Code(s): E86.0 - Dehydration Status: Acute (5) Right upper lobe pneumonia: Code(s): J18.9 - Pneumonia, unspecified organism Status: Acute (6) COPD (chronic obstructive pulmonary disease): Code(s): J44.9 - Chronic obstructive pulmonary disease, unspecified Status: Acute (7) Hx of pulmonary embolus: Code(s): Z86.711 - Personal history of pulmonary embolism Status: Acute (8) Community acquired pneumonia: Qualifiers: Laterality: right Lung location: lower lobe of lung Qualified Code(s): J18.9 - Pneumonia, unspecified organism Code(s): J18.9 - Pneumonia, unspecified organism Status: Acute (9) Acute metabolic encephalopathy: Code(s): G93.41 - Metabolic encephalopathy Status: Acute Plan Patient is a 73-year-old female with history of COPD, hypertension, hyperlipidemia, diabetes, PE and DVT, presented to the ED with a chief complaint of shortness of breath and confusion. Patient has been having cough with greenish phlegm in past few more days, patient develops dyspnea. And patient also has dysuria, urinary urgency frequency. Upon arrival in the ED, patient was found have tachycardia, tachypnea, hypoxemia pulse ox 86 on room air, low-grade fever. Labs showed leukocytosis, white blood cell 15.4, bicarb of 32, elevated BUN of 36 and creatinine 1.3.? Urinalysis revealed pyuria, trace ketones and a urinary tract infection positive for nitrites.? CT chest abdomen pelvis suggest right upper lobe pneumonia. Sepsis Patient has tachycardia tachypnea, leukocytosis, meeting criteria of sepsis Likely resulting from pneumonia and UTI Patient received fluid resuscitation per sepsis protocol Continue normal saline IV 100ml/h Follow-up blood culture urine culture Urine culture grows E coli, ramirez susceptibility, blood culture negative of bacteria Continue ceftriaxone 2 g IV daily, start doxycycline 100 mg q.12 hours p.o. 02/03: Transition to doxycycline and cefdinir p.o. COPD exacerbation, acute hypoxemia, pneumonia Patient has history of COPD, and patient has a productive cough and developed dyspnea in past few more days CT is revealed upper lobe consolidation suggesting pneumonia, and patient was found hypoxemia pulse ox 86 on room air in the ED, Start DuoNeb scheduled q.6 hours, albuterol nebulizer q.4 hours as needed Start O2 therapy to keep pulse ox above 92 Start methylprednisolone 60 mg q.6 hours IV 01/31 Patient has denies short of breath, pulse ox 95% on room air, discontinue methylprednisone iv 02/02 COPD exacerbation has resolved, continue oral antibiotics up discharge 02/03 Acute urinary tract infection UA shows pyuria, positive urine nitrate, possible Gram-negative bacteria infection Patient is on ceftriaxone IV Follow-up urine culture : ecoli Continue Omnicef on discharge Acute renal failure Elevated BUN creatinine above baseline Likely secondary to sepsis and UTI received fluid resuscitation Follow-up BMP Avoid nephrotoxic medication now resolves Acute metabolic encephalopathy Patient was confused Possible secondary to sepsis, UTI and dehydration Neuro check A&O x 3 Uncontrolled type 2 diabetes Likely secondary to corticosteroid Start aspart 5 units a.c. and q.h.s. on high-dose aspart sliding scale a.c. q.h.s. Resume home medication on discharge, optimize medication per primary care doctor Essential hypertension Hold hypertension medication, blood pressure soft POA now stable , resume home medication on discharge History of PE DVT Continue Eliquis 5 mg b.i.d. p.o.
--- NOTE | 2024-02-04 08:15 | PM.DS ---
DS: Admitting Diagnosis Discharge Date Admitting Diagnosis (1) Sepsis: ?Code(s): A41.9 - Sepsis, unspecified organism ?Status:?Acute (2) Acute UTI: ?Code(s): N39.0 - Urinary tract infection, site not specified ?Status:?Acute (3) Acute kidney injury: ?Code(s): N17.9 - Acute kidney failure, unspecified ?Status:?Acute (4) Dehydration: ?Code(s): E86.0 - Dehydration ?Status:?Acute (5) Right upper lobe pneumonia: ?Code(s): J18.9 - Pneumonia, unspecified organism ?Status:?Acute (6) COPD (chronic obstructive pulmonary disease): ?Code(s): J44.9 - Chronic obstructive pulmonary disease, unspecified ?Status:?Acute (7) Hx of pulmonary embolus: ?Code(s): Z86.711 - Personal history of pulmonary embolism ?Status:?Acute (8) Community acquired pneumonia: ?Qualifiers: ?Laterality:?right??Lung location:?lower lobe of lung? Qualified Code(s):?J18.9 - Pneumonia, unspecified organism ?Code(s): J18.9 - Pneumonia, unspecified organism ?Status:?Acute (9) Acute metabolic encephalopathy: ?Code(s): G93.41 - Metabolic encephalopathy ?Status:?Acute DS: Discharge Diagnosis Discharge Diagnosis (1) Sepsis: Code(s): A41.9 - Sepsis, unspecified organism Status: Acute (2) Acute UTI: Code(s): N39.0 - Urinary tract infection, site not specified Status: Acute (3) Acute kidney injury: Code(s): N17.9 - Acute kidney failure, unspecified Status: Acute (4) Dehydration: Code(s): E86.0 - Dehydration Status: Acute (5) Right upper lobe pneumonia: Code(s): J18.9 - Pneumonia, unspecified organism Status: Acute (6) COPD (chronic obstructive pulmonary disease): Code(s): J44.9 - Chronic obstructive pulmonary disease, unspecified Status: Acute (7) Hx of pulmonary embolus: Code(s): Z86.711 - Personal history of pulmonary embolism Status: Acute (8) Community acquired pneumonia: Qualifiers: Laterality: right Lung location: lower lobe of lung Qualified Code(s): J18.9 - Pneumonia, unspecified organism Code(s): J18.9 - Pneumonia, unspecified organism Status: Acute (9) Acute metabolic encephalopathy: Code(s): G93.41 - Metabolic encephalopathy Status: Acute DS: Summary Hospital Course Hospital Course: Patient is a 73-year-old female with history of COPD, hypertension, hyperlipidemia, diabetes, PE and DVT, presented to the ED with a chief complaint of shortness of breath and confusion. Patient has been having cough with greenish phlegm in past few more days, patient develops dyspnea. And patient also has dysuria, urinary urgency frequency. Upon arrival in the ED, patient was found have tachycardia, tachypnea, hypoxemia pulse ox 86 on room air, low-grade fever. Labs showed leukocytosis, white blood cell 15.4, bicarb of 32, elevated BUN of 36 and creatinine 1.3.? Urinalysis revealed pyuria, trace ketones and a urinary tract infection positive for nitrites.? CT chest abdomen pelvis suggest right upper lobe pneumonia. The following med issues have been addressed during hospitalization Sepsis Patient has tachycardia tachypnea, leukocytosis, meeting criteria of sepsis Likely resulting from pneumonia and UTI Patient received fluid resuscitation per sepsis protocol Continue normal saline IV 100ml/h Follow-up blood culture urine culture Urine culture grows E coli, ramirez susceptibility, blood culture negative of bacteria Continue ceftriaxone 2 g IV daily, start doxycycline 100 mg q.12 hours p.o. 02/03: Transition to doxycycline and cefdinir p.o. COPD exacerbation, acute hypoxemia, pneumonia Patient has history of COPD, and patient has a productive cough and developed dyspnea in past few more days CT is revealed upper lobe consolidation suggesting pneumonia, and patient was found hypoxemia pulse ox 86 on room air in the ED, S
--- NOTE | 2024-02-04 08:16 | PC.NURSE ---
Dr Marina notified of patient on tele and HR in [address] with activity.
[2024-02-04 08:32] LABS: Glucose Point of Care 137 mg/dl (65-105)
[2024-02-04 08:49] LABS: Basophils Absolute Auto 0.1 K/mm3 (0.0-0.1); Basophils Percent Auto 0.5 % (0.2-1.2); Hemoglobin 12.1 g/dL (12.0-15.0); Immature Granulocyte Absolute 0.28 K/mm3 (0.00-0.031); Immature Granulocyte Percent A 2.2 % (0-0.5); Lymphocytes Absolute Auto 1.03 K/mm3 (0.9-3.2); Lymphocytes Percent Auto 8.1 % (18.3-44.2); Mean Corpuscular Hemoglobin 31.3 pg (26-34); Mean Platelet Volume 10.1 fl (7.4-10.4); Monocytes Absolute Auto 0.8 K/mm3 (0.1-0.6); Monocytes Percent Auto 6.2 % (2.6-8.5); Neutrophils Absolute Auto 10.5 K/mm3 (1.3-6.7); Platelet Count Result 259 k/mm3 (150-375); Red Blood Count 3.86 M/mm3 (4.2-5.4); Red Cell Distribution Width 13.2 % (11.5-14.5); White Blood Count 12.7 K/mm3 (4.5-10.0)
[2024-02-04] MEDS: APIXABAN 5 MG TABLET PO (09:00)
[2024-02-04] MEDS: ATORVASTATIN 10 MG TABLET PO (09:00)
[2024-02-04] MEDS: carvediloL 6.25 MG TABLET PO (09:00)
[2024-02-04] MEDS: MONTELUKAST SODIUM 10 MG TABLET PO (09:00)
[2024-02-04] MEDS: PANTOPRAZOLE 40 MG TABLET PO (09:00)
[2024-02-04] MEDS: DOXYCYCLINE HYCLATE 100 MG TABLET PO (09:00)
[2024-02-04] MEDS: INSULIN ASPART (*BKC) 100 UNITS/ML 6 UNITS SUB-Q (09:03)
[2024-02-04 09:04] LABS: Anion Gap 9 mmol/L (4-12); Blood Urea Nitrogen 17 mg/dL (7-17); Calcium 9.1 mg/dL (8.4-10.2); Carbon Dioxide 29 mmol/L (22-30); Chloride 102 mmol/L (98-107); Estimated CRCL calculation 60 ml/min; Estimated Glomerular Filt Rate > 60; Glucose 138 mg/dL (65-110); Potassium 3.3 mmol/L (3.4-5.0); Sodium 140 mmol/L (137-145)
[2024-02-04 11:21] LABS: SARS-CoV-2 RNA PCR Negative (Negative)
[2024-02-04 12:15] LABS: Glucose Point of Care 84 mg/dl (65-105)
== END 2024-02-04 14:36 | DRG 871 ==
LOC: ANHED 02-01 05:45 → ANH3MED 02-01 06:14
PROVIDERS: Admitting Provider Internal Medicine; Emergency Provider Emergency Medicine; PCP Internal Medicine; Visit Provider Hospitalist
DX: A41.9 Sepsis, unspecified organism (principal); G93.41 Metabolic encephalopathy; J18.9 Pneumonia, unspecified organism; N39.0 Urinary tract infection, site not specified; J44.1 Chronic obstructive pulmonary disease with (acute) exacerbation; J44.0 Chronic obstructive pulmonary disease with (acute) lower respiratory infection; N17.9 Acute kidney failure, unspecified; T38.0X5A Adverse effect of glucocorticoids and synthetic analogues, initial encounter; B96.20 Unspecified Escherichia coli [E. coli] as the cause of diseases classified elsewhere; E78.5 Hyperlipidemia, unspecified; E86.0 Dehydration; E11.65 Type 2 diabetes mellitus with hyperglycemia; E11.42 Type 2 diabetes mellitus with diabetic polyneuropathy; G47.30 Sleep apnea, unspecified; I10 Essential (primary) hypertension; K21.9 Gastro-esophageal reflux disease without esophagitis; M17.12 Unilateral primary osteoarthritis, left knee; M10.9 Gout, unspecified; Z11.52 Encounter for screening for COVID-19; Z20.822 Contact with and (suspected) exposure to COVID-19; Z86.718 Personal history of other venous thrombosis and embolism; Z86.711 Personal history of pulmonary embolism; Z87.891 Personal history of nicotine dependence; Z79.84 Long term (current) use of oral hypoglycemic drugs; Z88.0 Allergy status to penicillin; Z85.118 Personal history of other malignant neoplasm of bronchus and lung; Z86.73 Personal history of transient ischemic attack (TIA), and cerebral infarction without residual deficits; Z92.21 Personal history of antineoplastic chemotherapy; Z92.3 Personal history of irradiation; Z90.2 Acquired absence of lung [part of]; Z96.651 Presence of right artificial knee joint; Z90.49 Acquired absence of other specified parts of digestive tract; Z90.710 Acquired absence of both cervix and uterus
CPT/HCPCS: 36415; 71260; 74177; 80048; 80053; 81001; 82948; 83036; 83605; 83735; 84100; 85025; 85610; 85730; 87040; 87077; 87086; 87088; 87186; 87635; 87637; 93005; 94640; 96365; 96367; 96375; 97110; 97116; 97161; 97165; 97530; 97535; 99285; A9270; J0456; J0696; J1815; J2405; J2930; J7030; Q9967

== ENCOUNTER 2024-02-25 18:43 | Emergency (ER) | payer MEDICARE, SELFPAY ==
--- NOTE | ~2024-02-25 | CT_ITS ---
EXAMINATION: CT abdomen pelvis w con DATE: 02/25/2024 21:19 INDICATION: abdominal pain TECHNIQUE: Computed tomography (CT) of the abdomen and pelvis was performed with 100 mL Omnipaque-350 intravenous contrast. Automated exposure control and iterative reconstruction technique were employe d. The dose-length product was 1230.61 mGy-cm. COMPARISON: None. FINDINGS: Lower thorax: Incompletely visualized right medial lung consolidation, with adjacent septal thickenin g and nodularity. Stable left lower lobe nodule. Liver: Normal. Biliary/Gallbladder: Gallbladder is absent. No bile duct dilation. Pancreas: No mass or duct dilation. Spleen: Normal. Adrenals:No mass. Kidneys: No suspicious mass, obstructing stone, or hydronephrosis. Bilateral cortical thinning and sc arring. GI tract: No small or large bowel dilation. Normal appendix. Diverticulosis without diverticulitis. Mesentery/Peritoneum: No ascites, mass, or free air. Retroperitoneum: No mass. Atherosclerotic abdominal aortic and/or arterial calcifications. Pelvis: Absent uterus. Urinary bladder is mostly empty. Ovaries not confidently identified.. Soft Tissues: Soft tissues and body wall unremarkable. Bones: No acute osseous finding. IMPRESSION: No acute abdominopelvic process detected. Chronic pulmonary opacities may represent postobstructive pneumonia, lymphangitic tumor spread should also be considered in the differential. Reviewed, dictated and finalized at location [facility]. IMPRESSION: No acute abdominopelvic process detected. Chronic pulmonary opacities may represent postobstructive pneumonia, lymphangit ic tumor spread should also be considered in the differential.
[2024-02-25 18:46] VITALS: BP 110/54; PULSE 95; RESP 20; TEMP 36.6; O2SAT 96
--- NOTE | 2024-02-25 18:52 | ECG_ITS ---
SEE SCANNED COPY FOR CONFIRMED REPORT MTDD
[2024-02-25 18:54] VITALS: BP 105/58; BP 99/42; PULSE 98
[2024-02-25 19:22] VITALS: BP 107/64; PULSE 97; RESP 19; O2SAT 97
[2024-02-25 19:33] LABS: Basophils Percent Auto 0.6 % (0.2-1.2); Eosinophils Absolute Auto 0.2 K/mm3 (0-0.3); Eosinophils Percent Auto 4.2 % (0-4.4); Hematocrit 36.3 % (37.0-47.0); Hemoglobin 11.4 g/dL (12.0-15.0); Immature Granulocyte Absolute 0.04 K/mm3 (0.00-0.031); Immature Granulocyte Percent A 0.8 % (0-0.5); Lymphocytes Absolute Auto 1.38 K/mm3 (0.9-3.2); Mean Corpuscular HGB Conc 31.4 g/dl (32-36); Mean Corpuscular Hemoglobin 32.2 pg (26-34); Mean Corpuscular Volume 102.5 fl (80-100); Mean Platelet Volume 9.7 fl (7.4-10.4); Monocytes Absolute Auto 0.5 K/mm3 (0.1-0.6); Monocytes Percent Auto 11.3 % (2.6-8.5); Neutrophils Absolute Auto 2.6 K/mm3 (1.3-6.7); Neutrophils Percent Auto 54.1 % (45.5-73.1); Platelet Count Result 209 k/mm3 (150-375); Red Blood Count 3.54 M/mm3 (4.2-5.4); Red Cell Distribution Width 13.5 % (11.5-14.5); White Blood Count 4.8 K/mm3 (4.5-10.0)
[2024-02-25 19:43] LABS: Alanine Aminotransferase 19 U/L (6-35); Albumin Level 4.2 g/dL (3.5-5.1); Alkaline Phosphatase 167 U/L (38-126); Anion Gap 8 mmol/L (4-12); Aspartate Amino Transferase 25 U/L (14-36); Bilirubin,Total 0.3 mg/dL (0.2-1.3); Blood Urea Nitrogen 22 mg/dL (7-17); Calcium 9.4 mg/dL (8.4-10.2); Carbon Dioxide 29 mmol/L (22-30); Chloride 104 mmol/L (98-107); Estimated CRCL calculation 42 ml/min; Estimated Glomerular Filt Rate 44; Glucose 136 mg/dL (65-110); Lipase 208 U/L (23-300); Potassium 3.4 mmol/L (3.4-5.0); Sodium 141 mmol/L (137-145)
[2024-02-25] MEDS: SODIUM CHLORIDE 0.9% IV 1,000 ML 999 ML IV CONT (20:18)
[2024-02-25 21:02] LABS: Appearance Urine Clear (Clear); Bilirubin Urine Negative (Negative); Blood Urine Negative (Negative); Color Urine Dark Yellow (Yellow); Glucose Urine UA Negative (Negative); Ketones Urine Trace mg/dL (Negative); Leukocyte Esterase Ur Negative LEU/UL (Negative); Nitrate Urine Negative (Negative); Protein Urine Negative (Negative); Specific Grav Ur 1.023 (1.001-1.035); Urobilinogen Urine 0.2 mg/dL (<2.0)
[2024-02-25 21:12] LABS: Add Urine Microscopic? NO
[2024-02-25 21:33] VITALS: BP 139/64; PULSE 100; RESP 15; O2SAT 99
--- NOTE | 2024-02-25 23:40 | ED.GENADULT ---
HPI - General Adult General Chief complaint: Nausea/Vomiting/Diarrhea Stated complaint: DIZZINESS, DIARRHEA Time Seen by Provider: 02/25/24 19:23 History of Present Illness HPI narrative: Patient is 33-year-old female who presents emergency department chief complaint of diarrhea and lightheadedness. Patient reports the last 2 weeks and having diarrhea reports that every time she eats she has scheduled bathroom. Patient reports that she has not really been drinking very much and gets lightheaded now whenever she stands up. The patient denies blood in her stool Related Data Home Medications Medication Instructions Recorded Confirmed baclofen 10 mg tablet 10 mg PO TID PRN Hiccups 09/23/19 02/01/24 metformin 500 mg tablet 500 mg PO BID 09/23/19 02/01/24 omeprazole 40 mg capsule,delayed 40 mg PO DAILY 09/23/19 02/01/24 release vitamin B complex 1 cap PO BID 09/23/19 02/01/24 allopurinol 100 mg tablet 300 mg PO DAILY 01/21/20 02/01/24 apixaban 5 mg tablet (Eliquis) 5 mg PO BID 01/21/20 02/01/24 acetaminophen 500 mg tablet 500 mg PO Q6H PRN Pain 02/18/23 02/01/24 albuterol sulfate 90 mcg/actuation 2 puff inhalation Q6H PRN 02/18/23 02/01/24 aerosol inhaler (Ventolin HFA) Shortness Of Breath Or Wheezing fluticasone fur. 100 mcg-umeclid 1 inh inhalation DAILY 02/18/23 02/01/24 62.5 mcg-vilant 25 mcg inhalat.powder (Trelegy Ellipta) lisinopril 20 1 tablet PO HS 02/18/23 02/01/24 mg-hydrochlorothiazide 12.5 mg tablet montelukast 10 mg tablet 10 mg PO DAILY 02/18/23 02/01/24 calcium carbonate (Calcium 600) 600 mg PO DAILY 05/28/23 02/01/24 carvedilol 6.25 mg tablet 6.25 mg PO Q12H 09/07/23 02/01/24 Allergies Allergy/AdvReac Type Severity Reaction Status Date / Time diclofenac Allergy Severe sob Verified 02/25/24 18:50 Penicillins Allergy Intermediate Itching Verified 02/25/24 18:50 penicillin V Allergy Itching Verified 02/25/24 18:50 Review of Systems Review of Systems: A 10 system review of systems was completed on the patient and is negative except for what is stated in the HPI. Nursing and ancillary documentation was reviewed. [facility] Past Medical History Medical History Adenomatous colon polyp Arthritis Cancer lung and lymphnodes 2012 and 2014 COPD (chronic obstructive pulmonary disease) uses inhaler, right upper lobe removed lung cancer 2012;lower lobe and lymphnodes 2014 CVA (cerebral vascular accident) 06/2018 TPA administered and rehab-pt states now no residual effect Diabetes last A1C=5.9 (10/2019) DVT (deep venous thrombosis) ESR raised ESR raised GERD (gastroesophageal reflux disease) Gout History of chemotherapy HTN (hypertension) Hx of pulmonary embolus Hx of radiation therapy Hypercholesterolemia Inflammatory arthritis Lung cancer Neuropathy Neutropenia Obesity Osteoarthritis of left knee Peripheral neuropathy Shingles Sleep apnea Surgical History Surgical History History of dilatation and curettage History of endoscopy History of esophagogastroduodenoscopy (EGD) History of lobectomy of lung History of removal of Port-a-Cath History of right knee joint replacement 2014 History of total right knee replacement (TKR) partialknee Hx of cholecystectomy Hx of colonoscopy Hx of tonsillectomy Hx of total hysterectomy Family History Family History Mother Carcinoma of colon Cerebrovascular accident Father Family history of heart disease in male family member before age 55 Sibling Family history of hypercholesterolemia Hypertension Glaucoma Other Family history of lung cancer Family history of malignant neoplasm of bone Family history of malignant neoplasm of urinary bladder Social History Social History Social Histor
[2024-02-25 23:41] VITALS: BP 140/63; PULSE 108; RESP 19; O2SAT 97
--- NOTE | 2024-02-25 23:51 | PC.NURSE ---
Called [facility] to come pick pt up. Sweep Molder stated someone would be here in 15-30 min.
== END 2024-02-26 00:30 ==
PROVIDERS: Emergency Medicine; Emergency Provider Emergency Medicine; PCP Internal Medicine
DX: R19.7 Diarrhea, unspecified (principal); R10.9 Unspecified abdominal pain; J44.9 Chronic obstructive pulmonary disease, unspecified; E11.42 Type 2 diabetes mellitus with diabetic polyneuropathy; G47.30 Sleep apnea, unspecified; M19.90 Unspecified osteoarthritis, unspecified site; K21.9 Gastro-esophageal reflux disease without esophagitis; Z96.651 Presence of right artificial knee joint; Z86.73 Personal history of transient ischemic attack (TIA), and cerebral infarction without residual deficits; Z85.118 Personal history of other malignant neoplasm of bronchus and lung; Z85.79 Personal history of other malignant neoplasms of lymphoid, hematopoietic and related tissues; Z86.718 Personal history of other venous thrombosis and embolism; Z86.010 Personal history of colon polyps; Z92.21 Personal history of antineoplastic chemotherapy; Z92.3 Personal history of irradiation; Z87.891 Personal history of nicotine dependence; Z90.2 Acquired absence of lung [part of]; Z90.49 Acquired absence of other specified parts of digestive tract; Z90.710 Acquired absence of both cervix and uterus; Z79.84 Long term (current) use of oral hypoglycemic drugs; Z79.01 Long term (current) use of anticoagulants; R91.8 Other nonspecific abnormal finding of lung field
CPT/HCPCS: 36415; 74177; 80053; 81003; 83690; 85025; 93005; 96360; 99284; J2405; J7030; Q9967

== ENCOUNTER 2024-03-01 09:50 | Emergency (ER) | payer MEDICARE, SELFPAY ==
[2024-03-01] VITALS (9 sets, daily range): BP systolic 106–134; BP diastolic 59–75; PULSE 89–99; RESP 13–19; TEMP 36.4; O2SAT 96–98
--- NOTE | ~2024-03-01 | XR_ITS ---
XR chest 1V portable DATE: 03/01/2024 10:35 INDICATION: Sepsis. Weakness. Hypotension. TECHNIQUE: Portable upright AP chest on March 01, 2024 at 1034 hours COMPARISON: 02/01/2024 CT chest abdomen pelvis 12/07/2023 portable AP chest FINDINGS: There is right lung volume loss with atelectasis, consolidation, mass lesion and/or scarrin g in the right perihilar and apical areas. There is elevation of the right diaphragm. The left lung appears essentially clear. No pleural effusions. Normal heart size. No pneumothorax. Surgical clips, right upper quadrant, consistent with cholecystectomy. Osteopenia. IMPRESSION: No significant change since 12/07/2023 Reviewed, dictated and finalized at location [facility].
--- NOTE | ~2024-03-01 | CT_ITS ---
EXAMINATION: CT abdomen pelvis w con DATE: 03/01/2024 12:39 INDICATION: Left lower quadrant abdominal pain, diarrhea. Urinary tract infection. TECHNIQUE: Computed tomography (CT) of the abdomen and pelvis was performed with 100 CC Omnipaque 350 intravenous contrast. Automated exposure control and iterative reconstruction technique were employe d. Exam dose: 908.18 mGy-cm total exam DLP. COMPARISON: February 25, 2024 CT abdomen pelvis FINDINGS: Mild patchy infiltrate or atelectasis in the right lower lung including middle lobe and rig ht lower lobe. Discoid atelectasis or scarring in the anterior basilar left lower lobe. Heart size is borderline. No pericardial or pleural effusion. Small sliding hiatal hernia. There is mild prominence of the hepatic bile ducts, likely due to cholecystectomy. The common bile du ct is of normal caliber. No pancreatic duct dilatation. No hepatic, pancreatic, splenic, adrenal or suspicious renal space occupying mass lesion. No urinary tract calculus or hydroureteronephrosis. The urinary bladder is unremarkable. Status post hysterectomy. There is extensive atherosclerotic calcification of the abdominal aorta and prominent calcification a t the origins of celiac, superior mesenteric and renal arteries. No abdominal aortic aneurysm. There is calcification of the iliac and femoral arteries. No intraperitoneal or retroperitoneal or pelvic mass lesion or adenopathy or ascites is detected. Normal appendix. Diverticulosis of the sigmoid colon; no CT evidence of diverticulitis. No bowel obst ruction. No intraperitoneal free air. Small fat-containing umbilical hernia. Moderately severe degenerative disease at L5-S1. No suspicious osteolytic or osteoblastic lesions are noted. IMPRESSION: Diverticulosis of the sigmoid colon; no evidence of diverticulitis Small sliding hiatal hernia Status post cholecystectomy Status post hysterectomy Multiplanar atelectasis in the right lower lung, including middle and lower lobes Reviewed, dictated and finalized at [facility]. Reviewed, dictated and finalized at location [facility]. IMPRESSION: Diverticulosis of the sigmoid colon; no evidence of diverticulitis Small sliding hiatal hernia Status post cholecystectomy Status post hysterectomy Multiplanar atelectasis in the right lower lung, including middle and lower lob es
--- NOTE | 2024-03-01 10:14 | ED.AMS ---
HPI - Altered Mental Status General Chief Complaint: Altered Mental Status Stated Complaint: weakness Time Seen by Provider: 03/01/24 09:59 Source: patient and old records reviewed Mode of arrival: EMS Limitations: no limitations History of Present Illness HPI narrative: Patient is a 73 y/o female, with PMH of CVA, DM, COPD, DVT on Eliquis, who presents to the ED via EMS with report of hypotension. Patient is a resident of [facility]. Per EMS report, patient was found to be hypotensive this morning and EMS was contacted. Upon EMS arrival, BP was 80s/40s. They administered 250mL fluid bolus. BP upon arrival to the ED 110/72. Patient reports the staff at [facility] has been monitoring her blood pressure every hour. She has had issues with it being low recently. She reported to EMS that she was feeling weak this morning, however upon my evaluation patient has no acute complaints. Denies generalized or focal weakness. Patient was recently admitted at the end of January here for sepsis, UTI, pneumonia. Was also seen our ED on 02/24 for abdominal pain and diarrhea, had a reassuring workup and was discharged back to the [facility]. Patient does complain of ongoing intermittent lower abdominal pain today and persistent diarrhea any time she eats. States this is been going on for approximately 1 month. Denies rectal bleeding/melena. Also reports swelling in her ankles, recent cough. Denies nausea, vomiting, fevers, chest pain, shortness of breath. Related Data Home Medications Medication Instructions Recorded Confirmed baclofen 10 mg tablet 10 mg PO TID PRN Hiccups 09/23/19 02/01/24 metformin 500 mg tablet 500 mg PO BID 09/23/19 02/01/24 omeprazole 40 mg capsule,delayed 40 mg PO DAILY 09/23/19 02/01/24 release vitamin B complex 1 cap PO BID 09/23/19 02/01/24 allopurinol 100 mg tablet 300 mg PO DAILY 01/21/20 02/01/24 apixaban 5 mg tablet (Eliquis) 5 mg PO BID 01/21/20 02/01/24 acetaminophen 500 mg tablet 500 mg PO Q6H PRN Pain 02/18/23 02/01/24 albuterol sulfate 90 mcg/actuation 2 puff inhalation Q6H PRN 02/18/23 02/01/24 aerosol inhaler (Ventolin HFA) Shortness Of Breath Or Wheezing fluticasone fur. 100 mcg-umeclid 1 inh inhalation DAILY 02/18/23 02/01/24 62.5 mcg-vilant 25 mcg inhalat.powder (Trelegy Ellipta) lisinopril 20 1 tablet PO HS 02/18/23 02/01/24 mg-hydrochlorothiazide 12.5 mg tablet montelukast 10 mg tablet 10 mg PO DAILY 02/18/23 02/01/24 calcium carbonate (Calcium 600) 600 mg PO DAILY 05/28/23 02/01/24 carvedilol 6.25 mg tablet 6.25 mg PO Q12H 09/07/23 02/01/24 Allergies Allergy/AdvReac Type Severity Reaction Status Date / Time diclofenac Allergy Severe sob Verified 02/25/24 18:50 Penicillins Allergy Intermediate Itching Verified 02/25/24 18:50 penicillin V Allergy Itching Verified 02/25/24 18:50 Review of Systems Review of Systems: CONSTITUTIONAL: Denies fever, chills, or sweats. ENT: Denies rhinorrhea, congestion, sore throat. CARDIOVASCULAR: See HPI RESPIRATORY: See HPI GASTROINTESTINAL: See HPI. GENITOURINARY: Denies dysuria or hematuria. All systems reviewed & are unremarkable except as noted in HPI and below PMFSH Past Medical History Medical History Adenomatous colon polyp Arthritis Cancer lung and lymphnodes 2012 and 2014 COPD (chronic obstructive pulmonary disease) uses inhaler, right upper lobe removed lung cancer 2012;lower lobe and lymphnodes 2014 CVA (cerebral vascular accident) 06/2018 TPA administered and rehab-pt states now no residual effect Diabetes last A1C=5.9 (10/2019) DVT (deep venous thrombosis) ESR raised ESR raised GERD (gastroesophageal reflux disease) Gout History of chemotherapy HTN (hypertension) Hx of pulmonary embolus Hx of radiation therapy Hypercholesterolemia Inflammatory arthritis Lung cancer Neuropathy Neutropenia Obesity Osteoarthritis of left knee Peripheral neuropathy Shing
[2024-03-01 10:16] LABS: Basophils Percent Auto 0.8 % (0.2-1.2); Eosinophils Absolute Auto 0.2 K/mm3 (0-0.3); Eosinophils Percent Auto 3.4 % (0-4.4); Hematocrit 36.2 % (37.0-47.0); Hemoglobin 11.4 g/dL (12.0-15.0); Immature Granulocyte Absolute 0.05 K/mm3 (0.00-0.031); Lymphocytes Absolute Auto 1.07 K/mm3 (0.9-3.2); Lymphocytes Percent Auto 21.1 % (18.3-44.2); Mean Corpuscular HGB Conc 31.5 g/dl (32-36); Mean Corpuscular Hemoglobin 31.8 pg (26-34); Mean Corpuscular Volume 101.1 fl (80-100); Mean Platelet Volume 10.7 fl (7.4-10.4); Monocytes Absolute Auto 0.7 K/mm3 (0.1-0.6); Monocytes Percent Auto 13.2 % (2.6-8.5); Neutrophils Absolute Auto 3.1 K/mm3 (1.3-6.7); Neutrophils Percent Auto 60.5 % (45.5-73.1); Platelet Count Result 172 k/mm3 (150-375); Red Blood Count 3.58 M/mm3 (4.2-5.4); Red Cell Distribution Width 13.8 % (11.5-14.5); White Blood Count 5.1 K/mm3 (4.5-10.0)
[2024-03-01 10:29] LABS: Lactic Acid Reflex 2.8 mmol/L (0.7-2.0); Magnesium 1.7 mg/dL (1.6-2.3)
[2024-03-01 10:30] LABS: Prothrombin Time 13.8 Seconds (11.1-14.7)
[2024-03-01 10:31] LABS: Partial Thromboplastin Time 37.9 Seconds (22.3-36.8)
[2024-03-01] MEDS: SODIUM CHLORIDE 0.9% IV 1,000 ML 999 ML IV CONT (10:31)
[2024-03-01 10:32] LABS: Creatine Kinase 48 U/L (30-135)
[2024-03-01 10:37] LABS: Alanine Aminotransferase 27 U/L (6-35); Albumin Level 3.9 g/dL (3.5-5.1); Alkaline Phosphatase 127 U/L (38-126); Anion Gap 6 mmol/L (4-12); Aspartate Amino Transferase 33 U/L (14-36); Bilirubin,Total 0.5 mg/dL (0.2-1.3); Blood Urea Nitrogen 16 mg/dL (7-17); CRP 2.8 mg/dL (<1.0); Calcium 9.2 mg/dL (8.4-10.2); Carbon Dioxide 30 mmol/L (22-30); Chloride 103 mmol/L (98-107); Estimated CRCL calculation 46 ml/min; Estimated Glomerular Filt Rate 48; Glucose 188 mg/dL (65-110); Sodium 139 mmol/L (137-145)
[2024-03-01 10:46] LABS: Troponin I < 0.012 ng/mL (0.000-0.034)
[2024-03-01] MEDS: MAGNESIUM SULF 1 GM/D5W 100 ML 1 GM/100 ML BAG IVPB (10:57)
[2024-03-01 11:02] LABS: Influenza A QL RT-PCR Negative (Negative); Influenza B QL RT-PCR Negative (Negative); RSV RNA, RT-PCR Negative (Negative); SARS-CoV-2 RNA PCR Negative (Negative)
--- NOTE | 2024-03-01 11:04 | PC.NURSE ---
pt up to commode with max assist. ua specimen collected and sent to lab. mag hung and infusing without difficulty
[2024-03-01 11:10] LABS: Appearance Urine Clear (Clear); Bacteria Urine 4+ /hpf; Bilirubin Urine Negative (Negative); Blood Urine Negative (Negative); Color Urine Yellow (Yellow); Glucose Urine UA Negative (Negative); Ketones Urine Negative (Negative); Leukocyte Esterase Ur 1+ LEU/UL (Negative); Nitrate Urine Positive (Negative); Protein Urine Negative (Negative); RBC Urine 0-2 /hpf (0-2); Specific Grav Ur 1.007 (1.001-1.035); Squamous Epithelial Cell Urine None Seen /hpf (Few); Urobilinogen Urine 0.2 mg/dL (<2.0); pH Urine 6.5 (5.0-9.0)
[2024-03-01 11:16] LABS: Add Urine Microscopic? YES
[2024-03-01 12:35] LABS: NT Pro B Type Natriuretic Pept 383 pg/mL (19.9-100)
[2024-03-01 12:42] LABS: Procalcitonin 0.1 ng/mL
[2024-03-01 13:13] LABS: Reflex Lactic Acid Yes or No Add Lactic
[2024-03-01 13:55] LABS: Lactic Acid Reflex 1.2 mmol/L (0.7-2.0)
--- NOTE | 2024-03-01 15:00 | PC.NURSE ---
Report given to Edith at [facility] for patient disposition. She states they do not have transportation for patient transfer back to facility.
--- NOTE | 2024-03-01 15:02 | PC.NURSE ---
Pt sister, Zoë, was called for patient transfer back to facility. She states that she does not drive and cannot provide transportation. Zoë says to ask the patient for [id number] to come.
--- NOTE | 2024-03-01 15:53 | PC.NURSE ---
Edith at [facility] called back to update, states none of the family is available/able to transfer patient to facility.
--- NOTE | 2024-03-06 12:47 | PCCARD ---
EKG ORDERED @ 10:00 DOES NOT APPEAR TO HAVE BEEN DONE. NO EKG CHARTED DONE IN PATIENT CHART. I CHECKED ALL 3 ER EKG MACHINES AND DID NOT FIND THIS PATIENT ON ANY OF THE MACHINES. I'M CANCELLING EKG ORDER NOT DONE.
== END 2024-03-01 18:10 ==
PROVIDERS: Emergency Provider Physician Assistant; PCP Internal Medicine
DX: N30.00 Acute cystitis without hematuria (principal); R03.1 Nonspecific low blood-pressure reading; Z20.822 Contact with and (suspected) exposure to COVID-19; J44.9 Chronic obstructive pulmonary disease, unspecified; E11.42 Type 2 diabetes mellitus with diabetic polyneuropathy; E78.00 Pure hypercholesterolemia, unspecified; E66.9 Obesity, unspecified; Z68.36 Body mass index [BMI] 36.0-36.9, adult; K21.9 Gastro-esophageal reflux disease without esophagitis; M17.12 Unilateral primary osteoarthritis, left knee; M10.9 Gout, unspecified; Z79.01 Long term (current) use of anticoagulants; G47.30 Sleep apnea, unspecified; Z96.651 Presence of right artificial knee joint; Z86.73 Personal history of transient ischemic attack (TIA), and cerebral infarction without residual deficits; Z86.718 Personal history of other venous thrombosis and embolism; Z86.010 Personal history of colon polyps; Z85.118 Personal history of other malignant neoplasm of bronchus and lung; Z85.79 Personal history of other malignant neoplasms of lymphoid, hematopoietic and related tissues; Z92.21 Personal history of antineoplastic chemotherapy; Z86.711 Personal history of pulmonary embolism; Z92.3 Personal history of irradiation; Z87.01 Personal history of pneumonia (recurrent); Z90.2 Acquired absence of lung [part of]; Z90.49 Acquired absence of other specified parts of digestive tract; Z90.710 Acquired absence of both cervix and uterus; K44.9 Diaphragmatic hernia without obstruction or gangrene; Z79.84 Long term (current) use of oral hypoglycemic drugs
CPT/HCPCS: 36415; 71045; 74177; 80053; 81001; 82550; 83605; 83735; 83880; 84145; 84484; 85025; 85610; 85730; 86140; 87040; 87077; 87086; 87088; 87186; 87637; 96365; 96367; 99284; J0696; J3475; J7030; Q9967

== ENCOUNTER 2024-03-06 10:43 | Emergency (ER) | payer MEDICARE, SELFPAY ==
[2024-03-06 10:48] VITALS: BP 108/57; PULSE 82; RESP 16; TEMP 36.4; O2SAT 95
[2024-03-06 11:39] VITALS: BP 126/68; PULSE 84; RESP 12; O2SAT 97
[2024-03-06] MEDS: SODIUM CHLORIDE 0.9% IV 1,000 ML 999 ML IV CONT (13:14)
[2024-03-06 13:25] LABS: Basophils Percent Auto 0.7 % (0.2-1.2); Eosinophils Absolute Auto 0.1 K/mm3 (0-0.3); Eosinophils Percent Auto 1.9 % (0-4.4); Hematocrit 38.8 % (37.0-47.0); Hemoglobin 12.1 g/dL (12.0-15.0); Immature Granulocyte Absolute 0.05 K/mm3 (0.00-0.031); Immature Granulocyte Percent A 0.9 % (0-0.5); Lymphocytes Absolute Auto 1.18 K/mm3 (0.9-3.2); Lymphocytes Percent Auto 20.8 % (18.3-44.2); Mean Corpuscular HGB Conc 31.2 g/dl (32-36); Mean Corpuscular Hemoglobin 31.8 pg (26-34); Mean Corpuscular Volume 101.8 fl (80-100); Mean Platelet Volume 9.2 fl (7.4-10.4); Monocytes Absolute Auto 0.6 K/mm3 (0.1-0.6); Monocytes Percent Auto 11.1 % (2.6-8.5); Neutrophils Absolute Auto 3.7 K/mm3 (1.3-6.7); Neutrophils Percent Auto 64.6 % (45.5-73.1); Platelet Count Result 216 k/mm3 (150-375); Red Blood Count 3.81 M/mm3 (4.2-5.4); Red Cell Distribution Width 13.6 % (11.5-14.5); White Blood Count 5.7 K/mm3 (4.5-10.0)
[2024-03-06 13:37] LABS: Alanine Aminotransferase 20 U/L (6-35); Albumin Level 4.2 g/dL (3.5-5.1); Alkaline Phosphatase 145 U/L (38-126); Anion Gap 6 mmol/L (4-12); Aspartate Amino Transferase 25 U/L (14-36); Bilirubin,Total 0.5 mg/dL (0.2-1.3); Blood Urea Nitrogen 19 mg/dL (7-17); Calcium 9.4 mg/dL (8.4-10.2); Carbon Dioxide 32 mmol/L (22-30); Chloride 99 mmol/L (98-107); Estimated CRCL calculation 41 ml/min; Estimated Glomerular Filt Rate 44; Glucose 95 mg/dL (65-110); Potassium 3.8 mmol/L (3.4-5.0); Sodium 137 mmol/L (137-145)
[2024-03-06 13:49] LABS: Appearance Urine Clear (Clear); Bilirubin Urine Negative (Negative); Blood Urine Negative (Negative); Color Urine Yellow (Yellow); Glucose Urine UA Negative (Negative); Ketones Urine Negative (Negative); Leukocyte Esterase Ur Negative LEU/UL (Negative); Nitrate Urine Negative (Negative); Protein Urine Negative (Negative); Specific Grav Ur 1.005 (1.001-1.035); Urobilinogen Urine 0.2 mg/dL (<2.0)
[2024-03-06 13:56] LABS: Add Urine Microscopic? NO
[2024-03-06 14:06] VITALS: BP 127/66; PULSE 90
[2024-03-06 14:07] VITALS: BP 123/79; PULSE 93
[2024-03-06 14:12] VITALS: BP 121/73; PULSE 93
[2024-03-06 14:13] VITALS: BP 121/76; PULSE 92; RESP 15; O2SAT 98
--- NOTE | 2024-03-06 14:30 | ED.GENADULT ---
HPI - General Adult General Chief complaint: Dizziness Stated complaint: dizziness, weakness Time Seen by Provider: 03/06/24 12:14 History of Present Illness HPI narrative: Patient is a 73-year-old female who presents ER from her facility after having an episode of dizziness when going from sitting to standing. She did have a low blood pressure. No fevers or chills or sweats. No loss of consciousness. No chest pain or chest pressure. Patient reports she is currently being treated for UTI. No additional complaints. Related Data Home Medications Medication Instructions Recorded Confirmed baclofen 10 mg tablet 10 mg PO TID PRN Hiccups 09/23/19 02/01/24 metformin 500 mg tablet 500 mg PO BID 09/23/19 02/01/24 omeprazole 40 mg capsule,delayed 40 mg PO DAILY 09/23/19 02/01/24 release vitamin B complex 1 cap PO BID 09/23/19 02/01/24 allopurinol 100 mg tablet 300 mg PO DAILY 01/21/20 02/01/24 apixaban 5 mg tablet (Eliquis) 5 mg PO BID 01/21/20 02/01/24 acetaminophen 500 mg tablet 500 mg PO Q6H PRN Pain 02/18/23 02/01/24 albuterol sulfate 90 mcg/actuation 2 puff inhalation Q6H PRN 02/18/23 02/01/24 aerosol inhaler (Ventolin HFA) Shortness Of Breath Or Wheezing fluticasone fur. 100 mcg-umeclid 1 inh inhalation DAILY 02/18/23 02/01/24 62.5 mcg-vilant 25 mcg inhalat.powder (Trelegy Ellipta) lisinopril 20 1 tablet PO HS 02/18/23 02/01/24 mg-hydrochlorothiazide 12.5 mg tablet montelukast 10 mg tablet 10 mg PO DAILY 02/18/23 02/01/24 calcium carbonate (Calcium 600) 600 mg PO DAILY 05/28/23 02/01/24 carvedilol 6.25 mg tablet 6.25 mg PO Q12H 09/07/23 02/01/24 Allergies Allergy/AdvReac Type Severity Reaction Status Date / Time diclofenac Allergy Severe sob Verified 03/06/24 10:51 Penicillins Allergy Intermediate Itching Verified 03/06/24 10:51 penicillin V Allergy Itching Verified 03/06/24 10:51 Review of Systems Review of Systems: All systems reviewed & are unremarkable except as noted in HPI and below Constitutional: Constitutional: Reports no additional constitutional complaints ENT: Reports system reviewed and no additional complaints, except as documented Cardiovascular: Cardiovascular: Reports no additional cardiovascular complaints Respiratory: Respiratory: Reports no additional respiratory complaints Gastrointestinal: Gastrointestinal: Reports no additional gastrointestinal complaints Genitourinary: Genitourinary: Reports no additional female genitourinary complaints PMFSH Past Medical History Medical History Adenomatous colon polyp Arthritis Cancer lung and lymphnodes 2012 and 2014 COPD (chronic obstructive pulmonary disease) uses inhaler, right upper lobe removed lung cancer 2012;lower lobe and lymphnodes 2014 CVA (cerebral vascular accident) 06/2018 TPA administered and rehab-pt states now no residual effect Diabetes last A1C=5.9 (10/2019) DVT (deep venous thrombosis) ESR raised ESR raised GERD (gastroesophageal reflux disease) Gout History of chemotherapy HTN (hypertension) Hx of pulmonary embolus Hx of radiation therapy Hypercholesterolemia Inflammatory arthritis Lung cancer Neuropathy Neutropenia Obesity Osteoarthritis of left knee Peripheral neuropathy Shingles Sleep apnea Surgical History Surgical History History of dilatation and curettage History of endoscopy History of esophagogastroduodenoscopy (EGD) History of lobectomy of lung History of removal of Port-a-Cath History of right knee joint replacement 2014 History of total right knee replacement (TKR) partialknee Hx of cholecystectomy Hx of colonoscopy Hx of tonsillectomy Hx of total hysterectomy Family History Family History Mother Carcinoma of colon Cerebrovascular accident Father Family history of heart disease in male family
--- NOTE | 2024-03-06 15:00 | PC.NURSE ---
Spoke with Monica from [facility], and gave update on patient condition. let them know that patient was going to be discharging and asked if they had any transportation available. They said no that we would need to arrange transport. patients sister also called who said she was unable to walk or drive and had no way to get her transported back home.
== END 2024-03-06 16:08 ==
PROVIDERS: Emergency Provider Emergency Medicine; PCP Internal Medicine
DX: R42 Dizziness and giddiness (principal); Z85.118 Personal history of other malignant neoplasm of bronchus and lung; Z86.718 Personal history of other venous thrombosis and embolism; Z79.01 Long term (current) use of anticoagulants; E11.9 Type 2 diabetes mellitus without complications; K21.9 Gastro-esophageal reflux disease without esophagitis; I10 Essential (primary) hypertension; E66.9 Obesity, unspecified; Z68.34 Body mass index [BMI] 34.0-34.9, adult; Z87.891 Personal history of nicotine dependence
CPT/HCPCS: 36415; 80053; 81003; 85025; 96360; 99283; J7030

== ENCOUNTER 2024-04-08 13:47 | Emergency (ER) | payer MEDICARE, SELFPAY ==
[2024-04-08] VITALS (10 sets, daily range): BP systolic 112–140; BP diastolic 49–76; PULSE 67–96; RESP 13–20; TEMP 36.8–37; O2SAT 96–100
--- NOTE | ~2024-04-08 | XR_ITS ---
EXAMINATION: XR chest 2V DATE: 04/08/2024 14:41 INDICATION: Weakness. TECHNIQUE: Frontal and lateral views of the chest were obtained. COMPARISON: Chest single view 03/01/2024, chest CT 02/01/2024 FINDINGS: There are changes of right upper lobectomy. There is volume loss of right hemithorax. There are airspace opacities in right perihilar region and at right lung apex with upward retraction of th e hilum, consistent with radiation fibrosis. No pleural effusion or pneumothorax. The heart size is n ormal. IMPRESSION: 1. 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 Reviewed, dictated and finalized at location A.
--- NOTE | 2024-04-08 13:49 | ECG_ITS ---
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 Measurements Intervals [place] Rate: 93 P: 39 CO: 220 QRS: 8 QRSD: 86 T: 59 QT: 348 QTc: 435 Interpretive Statements SINUS RHYTHM WITH FIRST DEGREE AV BLOCK No previous ECG available for comparison Electronically Signed On 04-08-2024 14:28:31 CDT by Rosey Shea M.D.
[2024-04-08 14:13] LABS: Basophils Percent Auto 0.4 % (0.2-1.2); Eosinophils Absolute Auto 0.2 K/mm3 (0-0.3); Eosinophils Percent Auto 2.4 % (0-4.4); Hemoglobin 11.7 g/dL (12.0-15.0); Immature Granulocyte Absolute 0.02 K/mm3 (0.00-0.031); Immature Granulocyte Percent A 0.3 % (0-0.5); Lymphocytes Absolute Auto 1.41 K/mm3 (0.9-3.2); Lymphocytes Percent Auto 21.1 % (18.3-44.2); Mean Corpuscular HGB Conc 31.6 g/dl (32-36); Mean Corpuscular Hemoglobin 31.5 pg (26-34); Mean Corpuscular Volume 99.7 fl (80-100); Mean Platelet Volume 9.7 fl (7.4-10.4); Monocytes Absolute Auto 0.7 K/mm3 (0.1-0.6); Monocytes Percent Auto 10.6 % (2.6-8.5); Neutrophils Absolute Auto 4.4 K/mm3 (1.3-6.7); Neutrophils Percent Auto 65.2 % (45.5-73.1); Platelet Count Result 212 k/mm3 (150-375); Red Blood Count 3.71 M/mm3 (4.2-5.4); White Blood Count 6.7 K/mm3 (4.5-10.0)
[2024-04-08 14:24] LABS: Appearance Urine Clear (Clear); Bilirubin Urine Negative (Negative); Blood Urine Negative (Negative); Color Urine Dark Yellow (Yellow); Glucose Urine UA Negative (Negative); Ketones Urine Negative (Negative); Leukocyte Esterase Ur Negative LEU/UL (Negative); Nitrate Urine Negative (Negative); Protein Urine Negative (Negative); Specific Grav Ur 1.014 (1.001-1.035); Urobilinogen Urine 0.2 mg/dL (<2.0); pH Urine 5.5 (5.0-9.0)
[2024-04-08 14:25] LABS: Alanine Aminotransferase 16 U/L (6-35); Albumin Level 4.3 g/dL (3.5-5.1); Alkaline Phosphatase 121 U/L (38-126); Anion Gap 9 mmol/L (4-12); Aspartate Amino Transferase 23 U/L (14-36); Bilirubin,Total 0.4 mg/dL (0.2-1.3); Blood Urea Nitrogen 32 mg/dL (7-17); Calcium 8.8 mg/dL (8.4-10.2); Carbon Dioxide 27 mmol/L (22-30); Chloride 104 mmol/L (98-107); Estimated CRCL calculation 39 ml/min; Estimated Glomerular Filt Rate 40; Glucose 116 mg/dL (65-110); Potassium 3.9 mmol/L (3.4-5.0); Sodium 140 mmol/L (137-145)
[2024-04-08 14:28] LABS: Add Urine Microscopic? NO
--- NOTE | 2024-04-08 14:56 | ED.WEAKNESS ---
HPI - Weakness General Chief complaint: Weakness Stated complaint: weakness Time Seen by Provider: 04/08/24 14:41 Source: patient Mode of arrival: EMS Limitations: no limitations History of Present Illness HPI Narrative: Patient presents with report of increasing weakness of one week's duration. She resides at an assisted living facility and had previously been responsible for her own medications but they are now helping with med passes. She denies any fevers/chills, nausea/vomiting. She has had a cough but states it is chronic. Reports a history of COPD but states it is an unclear/uncertain diagnosis. Patient reports chronic shortness of breath. History of PE as well on anticoagulation. She is having difficulty moving from her bed to the bathroom due to her weakness as well as chronic knee pain rated 8/10 in severity for which she is taking Tylenol. Previous history of right knee replacement and her left has been bothering her too. She recently saw Dr Graves for this and states the aspiration/injection she had done helped for about a week but wore off. Hx of a CVA in 2014 with no deficits. Ambulates with a walker. Concern for a UTI. She states her last bowel movement was watery. Related Data Home Medications Medication Instructions Recorded Confirmed baclofen 10 mg tablet 10 mg PO TID PRN Hiccups 09/23/19 02/01/24 metformin 500 mg tablet 500 mg PO BID 09/23/19 02/01/24 omeprazole 40 mg capsule,delayed 40 mg PO DAILY 09/23/19 02/01/24 release vitamin B complex 1 cap PO BID 09/23/19 02/01/24 allopurinol 100 mg tablet 300 mg PO DAILY 01/21/20 02/01/24 apixaban 5 mg tablet (Eliquis) 5 mg PO BID 01/21/20 02/01/24 acetaminophen 500 mg tablet 500 mg PO Q6H PRN Pain 02/18/23 02/01/24 albuterol sulfate 90 mcg/actuation 2 puff inhalation Q6H PRN 02/18/23 02/01/24 aerosol inhaler (Ventolin HFA) Shortness Of Breath Or Wheezing fluticasone fur. 100 mcg-umeclid 1 inh inhalation DAILY 02/18/23 02/01/24 62.5 mcg-vilant 25 mcg inhalat.powder (Trelegy Ellipta) lisinopril 20 1 tablet PO HS 02/18/23 02/01/24 mg-hydrochlorothiazide 12.5 mg tablet montelukast 10 mg tablet 10 mg PO DAILY 02/18/23 02/01/24 calcium carbonate (Calcium 600) 600 mg PO DAILY 05/28/23 02/01/24 carvedilol 6.25 mg tablet 6.25 mg PO Q12H 09/07/23 02/01/24 Allergies Allergy/AdvReac Type Severity Reaction Status Date / Time diclofenac Allergy Severe sob Verified 04/08/24 14:03 Penicillins Allergy Intermediate Itching Verified 04/08/24 14:03 penicillin V Allergy Itching Verified 04/08/24 14:03 [facility] Past Medical History Medical History (Updated 04/09/24 @ 00:00 by Tracy Isaacs) Adenomatous colon polyp Arthritis Cancer lung and lymphnodes 2012 and 2014 COPD (chronic obstructive pulmonary disease) uses inhaler, right upper lobe removed lung cancer 2012;lower lobe and lymphnodes 2014 CVA (cerebral vascular accident) 06/2018 TPA administered and rehab-pt states now no residual effect Diabetes last A1C=5.9 (10/2019) DVT (deep venous thrombosis) ESR raised ESR raised GERD without esophagitis Gout History of chemotherapy HTN (hypertension) Hx of pulmonary embolus on Elliquis Hx of radiation therapy Hypercholesterolemia Inflammatory arthritis Lung cancer Neuropathy Neutropenia Obesity Osteoarthritis of left knee Peripheral neuropathy Pure hypercholesterolemia, unspecified Shingles Sleep apnea Surgical History Surgical History (Updated 04/09/24 @ 09:01 by Luna Harrington MD) History of dilatation and curettage History of endoscopy History of esophagogastroduodenoscopy (EGD) History of lobectomy of lung History of removal of Port-a-Cath History of right knee joint replacement 2014 History of total right knee replacement (TKR) partial knee; Dr Power Hx of cholecystectomy Hx of colonoscopy Hx of tonsillectomy Hx of total hysterectomy Family History Family History Mo
[2024-04-08] MEDS: SODIUM CHLORIDE 0.9% IV 1,000 ML 999 ML IV CONT (15:13)
[2024-04-08 15:40] LABS: Creatine Kinase 44 U/L (30-135); Magnesium 1.3 mg/dL (1.6-2.3)
[2024-04-08 15:49] LABS: NT Pro B Type Natriuretic Pept 109 pg/mL (19.9-100)
[2024-04-08 15:53] LABS: Influenza A QL RT-PCR Negative (Negative); Influenza B QL RT-PCR Negative (Negative); RSV RNA, RT-PCR Negative (Negative); SARS-CoV-2 RNA PCR Negative (Negative)
[2024-04-08 15:57] LABS: Troponin I < 0.012 ng/mL (0.000-0.034)
[2024-04-08] MEDS: MAGNESIUM SULF 1 GM/D5W 100 ML 1 GM/100 ML BAG IVPB (16:34)
[2024-04-08] MEDS: ACETAMINOPHEN 500 MG TABLET 1000 MG PO (17:38)
--- NOTE | 2024-04-08 18:44 | PC.NURSE ---
patient ambulates with walker well with no assist. called report to BRIDGET Ray at [facility]. patient does not qualify for ambulance ride back and does not have family in the area to pick her up. does not have money with her today so a cab voucher was provided and is expected to pick her up at 1900. BRIDGET Anderson states that she will assist patient out of the car once she arrives back
== END 2024-04-08 18:50 ==
PROVIDERS: Emergency Provider Student in an Organized Health Care Education/Training Program; PCP Internal Medicine
DX: N17.9 Acute kidney failure, unspecified (principal); I44.0 Atrioventricular block, first degree; E83.42 Hypomagnesemia; R19.7 Diarrhea, unspecified; J44.9 Chronic obstructive pulmonary disease, unspecified; J70.1 Chronic and other pulmonary manifestations due to radiation; E11.42 Type 2 diabetes mellitus with diabetic polyneuropathy; E78.00 Pure hypercholesterolemia, unspecified; E66.9 Obesity, unspecified; Z68.35 Body mass index [BMI] 35.0-35.9, adult; G47.30 Sleep apnea, unspecified; K21.9 Gastro-esophageal reflux disease without esophagitis; M17.12 Unilateral primary osteoarthritis, left knee; M10.9 Gout, unspecified; R06.02 Shortness of breath; Z96.651 Presence of right artificial knee joint; Z86.711 Personal history of pulmonary embolism; Z86.73 Personal history of transient ischemic attack (TIA), and cerebral infarction without residual deficits; Z86.718 Personal history of other venous thrombosis and embolism; Z86.010 Personal history of colon polyps; Z85.118 Personal history of other malignant neoplasm of bronchus and lung; Z85.79 Personal history of other malignant neoplasms of lymphoid, hematopoietic and related tissues; Z92.21 Personal history of antineoplastic chemotherapy; Z92.3 Personal history of irradiation; Z87.01 Personal history of pneumonia (recurrent); Z90.49 Acquired absence of other specified parts of digestive tract; Z90.2 Acquired absence of lung [part of]; Z90.710 Acquired absence of both cervix and uterus; Z79.01 Long term (current) use of anticoagulants; Z79.84 Long term (current) use of oral hypoglycemic drugs
CPT/HCPCS: 36415; 71046; 80053; 81003; 82550; 83735; 83880; 84484; 85025; 87637; 93005; 96361; 96365; 99284; A9270; J3475; J7030

== ENCOUNTER 2024-06-22 13:24 | Emergency (ER) | payer MEDICARE, SELFPAY ==
--- NOTE | ~2024-06-22 | XR_ITS ---
XR knee RT min 4V DATE: 06/22/2024 13:51 INDICATION: Twisted knee in shower. TECHNIQUE: 4 views COMPARISON: 08/31/2023 right knee FINDINGS: Status post right medial joint replacement. There is prominent periarticular spurring at the patellofemoral joint. There is moderately prominent loss of lateral compartment joint space height with moderate periarticular spurring. Mild knee joint effusion is suggested, not significantly changed compared to 08/31/2023. No fracture, dislocation, periosteal reaction or bone destruction. IMPRESSION: Medial compartment joint replacement Osteoarthritis of the lateral and patellofemoral compartments Small knee joint effusion is suggested No fracture or dislocation Reviewed, dictated and finalized at location J.
[2024-06-22 13:25] VITALS: BP 120/64; PULSE 96; RESP 16; TEMP 36.5; O2SAT 96
--- NOTE | 2024-06-22 15:06 | ED.LOWEXIN ---
HPI - Extremity Injury (Lower) General Chief Complaint: Extremity Injury, Lower Stated Complaint: right knee pain from a fall Time Seen by Provider: 06/22/24 14:12 Source: patient Mode of arrival: EMS Limitations: no limitations History of Present Illness HPI Narrative: this is a 73-year-old female that presents to the emergency department after any injury this morning. Reports she was trying to get out of the shower and twisted her knee. Has had pain in the knee since. Worse with range of motion and weight-bearing. Denies swelling, redness, or numbness. Related Data Home Medications Medication Instructions Recorded Confirmed baclofen 10 mg tablet 10 mg PO TID PRN Hiccups 09/23/19 02/01/24 metformin 500 mg tablet 500 mg PO BID 09/23/19 02/01/24 omeprazole 40 mg capsule,delayed 40 mg PO DAILY 09/23/19 02/01/24 release vitamin B complex 1 cap PO BID 09/23/19 02/01/24 allopurinol 100 mg tablet 300 mg PO DAILY 01/21/20 02/01/24 apixaban 5 mg tablet (Eliquis) 5 mg PO BID 01/21/20 02/01/24 acetaminophen 500 mg tablet 500 mg PO Q6H PRN Pain 02/18/23 02/01/24 albuterol sulfate 90 mcg/actuation 2 puff inhalation Q6H PRN 02/18/23 02/01/24 aerosol inhaler (Ventolin HFA) Shortness Of Breath Or Wheezing fluticasone fur. 100 mcg-umeclid 1 inh inhalation DAILY 02/18/23 02/01/24 62.5 mcg-vilant 25 mcg inhalat.powder (Trelegy Ellipta) lisinopril 20 1 tablet PO HS 02/18/23 02/01/24 mg-hydrochlorothiazide 12.5 mg tablet montelukast 10 mg tablet 10 mg PO DAILY 02/18/23 02/01/24 calcium carbonate (Calcium 600) 600 mg PO DAILY 05/28/23 02/01/24 carvedilol 6.25 mg tablet 6.25 mg PO Q12H 09/07/23 02/01/24 Allergies Allergy/AdvReac Type Severity Reaction Status Date / Time diclofenac Allergy Severe sob Verified 04/08/24 14:03 Penicillins Allergy Intermediate Itching Verified 04/08/24 14:03 penicillin V Allergy Itching Verified 04/08/24 14:03 Review of Systems Review of Systems: CONSTITUTIONAL: Denies fever MUSCULOSKELETAL: Reports joint pain, and myalgia. NEUROLOGIC: Denies numbness All systems reviewed & are unremarkable except as noted in HPI and below PMFSH Past Medical History Medical History (Updated 06/22/24 @ 16:07 by Cleopatra Rodrigez PA-C) Adenomatous colon polyp Arthritis Cancer lung and lymphnodes 2012 and 2014 COPD (chronic obstructive pulmonary disease) uses inhaler, right upper lobe removed lung cancer 2012;lower lobe and lymphnodes 2014 CVA (cerebral vascular accident) 06/2018 TPA administered and rehab-pt states now no residual effect Diabetes last A1C=5.9 (10/2019) DVT (deep venous thrombosis) ESR raised ESR raised GERD without esophagitis Gout History of chemotherapy HTN (hypertension) Hx of pulmonary embolus on Elliquis Hx of radiation therapy Hypercholesterolemia Inflammatory arthritis Lung cancer Neuropathy Neutropenia Obesity Osteoarthritis of left knee Peripheral neuropathy Pure hypercholesterolemia, unspecified Shingles Sleep apnea Surgical History Surgical History (Updated 04/09/24 @ 09:01 by Luna Harrington MD) History of dilatation and curettage History of endoscopy History of esophagogastroduodenoscopy (EGD) History of lobectomy of lung History of removal of Port-a-Cath History of right knee joint replacement 2014 History of total right knee replacement (TKR) partial knee; Dr Power Hx of cholecystectomy Hx of colonoscopy Hx of tonsillectomy Hx of total hysterectomy Family History Family History Mother Carcinoma of colon Cerebrovascular accident Father Family history of heart disease in male family member before age 55 Sibling Family history of hypercholesterolemia Hypertension Glaucoma Other Family history of lung cancer Family history of malignant neoplasm of bone Family history of malignant neoplasm of urinary bladder Social History Social History (Updated 04/08/24 @ 15:
[2024-06-22] MEDS: ACETAMINOPHEN 325 MG TABLET 650 MG PO (15:14)
[2024-06-22 17:00] VITALS: BP 136/72; PULSE 80; RESP 16; O2SAT 98
== END 2024-06-22 17:36 ==
PROVIDERS: Emergency Provider Physician Assistant; PCP Internal Medicine
DX: M23.91 Unspecified internal derangement of right knee (principal); S89.91XA Unspecified injury of right lower leg, initial encounter; J44.9 Chronic obstructive pulmonary disease, unspecified; E78.00 Pure hypercholesterolemia, unspecified; E11.42 Type 2 diabetes mellitus with diabetic polyneuropathy; G47.30 Sleep apnea, unspecified; K21.9 Gastro-esophageal reflux disease without esophagitis; M10.9 Gout, unspecified; M17.0 Bilateral primary osteoarthritis of knee; Z85.118 Personal history of other malignant neoplasm of bronchus and lung; Z86.73 Personal history of transient ischemic attack (TIA), and cerebral infarction without residual deficits; Z86.718 Personal history of other venous thrombosis and embolism; Z86.711 Personal history of pulmonary embolism; Z86.010 Personal history of colon polyps; Z92.3 Personal history of irradiation; Z92.21 Personal history of antineoplastic chemotherapy; Z87.891 Personal history of nicotine dependence; Z90.2 Acquired absence of lung [part of]; Z90.49 Acquired absence of other specified parts of digestive tract; Z90.710 Acquired absence of both cervix and uterus; Z79.01 Long term (current) use of anticoagulants; Z79.84 Long term (current) use of oral hypoglycemic drugs; Z79.899 Other long term (current) drug therapy; X50.9XXA Other and unspecified overexertion or strenuous movements or postures, initial encounter
CPT/HCPCS: 73564; 99283; A9270

== ENCOUNTER 2024-07-12 17:11 | Inpatient (IN) | payer MEDICARE, SELFPAY ==
--- NOTE | ~2024-07-12 | CT_ITS ---
Clinical Indication: Shortness of breath CT Scan of the Chest with Contrast: Technique: Contiguous sections were acquired throughout the chest after intravenous administration of 100 cc of Omnipaque 350. Dose reduction technique was used on this scan by utilizing automated expos ure control and iterative reconstruction technique. The dose-length product (DLP) was 646.34 mGy-cm. COMPARISON: 02/01/2024 Findings: There is no evidence of any significant mediastinal, hilar or axillary lymphadenopathy. There is no f illing defect in the pulmonary arterial tree to suggest pulmonary embolus. There is no evidence of ao rtic dissection or aneurysm. There is no evidence of pleural or pericardial effusion. Stable consolidation at the right lung apex extending to the right hilum, with right-sided volume los s. Possible prior right-sided lobectomy. Images through the upper abdomen reveal no abnormalities. Impression: No evidence of pulmonary embolus, aortic dissection, or aortic aneurysm. Stable consolidation right lung apex extending to the right hilum with right-sided volume loss. Findi ngs could reflect post therapy change and treated disease. Possible prior right-sided lobectomy. Tsering elate with surgical history. Reviewed, dictated and finalized at location . Impression: No evidence of pulmonary embolus, aortic dissection, or aortic aneurysm. Stable consolidation right lung apex extending to the right hilum with right-si ded volume loss. Findings could reflect post therapy change and treated disease . Possible prior right-sided lobectomy. Correlate with surgical history.
--- NOTE | ~2024-07-12 | CT_ITS ---
EXAMINATION: CT brain wo con DATE: 07/15/2024 09:31 INDICATION: Slurred speech. TECHNIQUE: Computed tomography (CT) of the head was performed without intravenous contrast. The mA wa s adjusted according to patient size. Iterative reconstruction technique was employed. The dose-lengt h product was 605.33 mGy-cm. COMPARISON: Head CT 01/27/2024 FINDINGS: There are scattered areas of low attenuation in the cerebral white matter. There is no intr acranial hemorrhage, acute infarction, or abnormal intracranial mass lesion. The ventricles are jamison l in size. The orbits are normal. There is mucosal thickening in the paranasal sinuses. There are mirta ateral mastoid effusions. IMPRESSION: 1. Stable extensive nonspecific cerebral white matter disease, which likely represents chronic small vessel ischemic disease. Reviewed, dictated and finalized at location A. IMPRESSION: 1. Stable extensive nonspecific cerebral white matter disease, which likely rep resents chronic small vessel ischemic disease.
--- NOTE | ~2024-07-12 | CT_ITS ---
EXAMINATION: CT abdomen pelvis wo con DATE: 07/13/2024 19:11 INDICATION: Right lower quadrant abdominal pain TECHNIQUE: Computed tomography (CT) of the abdomen and pelvis was performed without intravenous contr ast. Automated exposure control and iterative reconstruction technique were employed. Exam dose: 142 6.29 mGy-cm total exam DLP. COMPARISON: 03/01/2024 CT abdomen pelvis FINDINGS: There is patchy consolidation in the posterior aspect of the superior segment of the right lower lobe with some air bronchograms suggesting pneumonia. Minimal infiltrate or atelectasis at the base of the middle lobe and basilar right lower lobe. Discoid scarring or atelectasis at the anterior basilar left lower lobe. Prominent left main and left anterior descending coronary arterial calcification. Small sliding hiatal hernia. Status post cholecystectomy. No bile duct or pancreatic duct dilatation. No hepatic, splenic, pancreatic, adrenal or renal space occupying mass lesion is detected. There is residual contrast material in the renal collecting systems and urinary bladder. No bladder wall thickening or intraluminal mass lesion. Status post hysterectomy. There is extensive calcification but normal caliber of the abdominal aorta and iliac arteries. No intraperitoneal or retroperitoneal or pelvic mass lesion or adenopathy or ascites. Normal appendix. Diverticulosis of the left colon; no CT evidence of diverticulitis. No bowel obstruction or intraperitoneal free air. Moderately severe degenerative disc disease at L5-S1. No suspicious osteolytic or osteoblastic lesions. IMPRESSION: Patchy consolidation, superior segment right lower lobe infiltrate and/or atelectasis els ewhere in the included lungs Small sliding hernia Normal appendix Diverticulosis of the colon; no CT evidence of diverticulitis Status post cholecystectomy Reviewed, dictated and finalized at Location A. Reviewed, dictated and finalized at location A. IMPRESSION: Patchy consolidation, superior segment right lower lobe infiltrate and/or atelectasis elsewhere in the included lungs Small sliding hernia Normal appendix Diverticulosis of the colon; no CT evidence of diverticulitis Status post cholecystectomy
[2024-07-12 17:14] VITALS: BP 125/55; PULSE 113; RESP 20; TEMP 36.9; O2SAT 94
[2024-07-12 17:51] LABS: Strep Group A RT-PCR NOT DETECTED (Negative)
--- NOTE | 2024-07-12 19:57 | ECG_ITS ---
Test Date: 2024-07-12 21:06:13 Measurements Intervals [place] Rate: 118 P: 41 ID: [id number] QRS: 6 QRSD: 74 T: 50 QT: 315 QTc: 442 Interpretive Statements SINUS TACHYCARDIA LOW QRS VOLTAGE IN PRECORDIAL LEADS BORDERLINE ST-T WAVE ABNORMALITY- ANTEROLAT/HIGH LAT LEADS BASELINE ARTIFACT- I, II, III, AVR, AVL, AVF, V1-V6 ABNORMAL ECG Compared to ECG 04/08/2024 13:51:30 HEART RATE HAS INCREASED Low QRS voltage now present Electronically Signed On 07-13-2024 08:35:56 CDT by Simon Olivares D.O.
--- NOTE | 2024-07-12 20:00 | ED.WEAKNESS ---
HPI - Weakness General Chief complaint: Weakness Stated complaint: increased weakness Time Seen by Provider: 07/12/24 19:26 History of Present Illness HPI Narrative: 73-year-old female with a history of hyperlipidemia, hypertension, COPD, PE on Eliquis, diabetes presenting with weakness shortness of breath. States over last few days she has had a cough and she feels more short of breath than normal. States that she has been increasingly weak and feels like it is hard to walk now. Also complains of a sore throat. No chest pain or abdominal pain. No nausea or vomiting. No further complaints. Related Data Home Medications Medication Instructions Recorded Confirmed baclofen 10 mg tablet 10 mg PO TID PRN Hiccups 09/23/19 07/13/24 metformin 500 mg tablet 500 mg PO BID 09/23/19 07/13/24 omeprazole 40 mg capsule,delayed 40 mg PO DAILY 09/23/19 07/13/24 release vitamin B complex 1 cap PO BID 09/23/19 07/13/24 allopurinol 100 mg tablet 300 mg PO DAILY 01/21/20 07/13/24 apixaban 5 mg tablet (Eliquis) 5 mg PO BID 01/21/20 07/13/24 acetaminophen 500 mg tablet 500 mg PO Q6H PRN Pain (Scale 02/18/23 07/13/24 Score 1-3) albuterol sulfate 90 mcg/actuation 2 puff inhalation Q6H PRN 02/18/23 07/13/24 aerosol inhaler (Ventolin HFA) Shortness Of Breath Or Wheezing fluticasone fur. 100 mcg-umeclid 1 inh inhalation DAILY 02/18/23 07/13/24 62.5 mcg-vilant 25 mcg inhalat.powder (Trelegy Ellipta) lisinopril 20 1 tablet PO HS 02/18/23 07/13/24 mg-hydrochlorothiazide 12.5 mg tablet montelukast 10 mg tablet 10 mg PO DAILY 02/18/23 07/13/24 calcium carbonate (Calcium 600) 600 mg PO DAILY 05/28/23 07/13/24 carvedilol 6.25 mg tablet 6.25 mg PO Q12H 09/07/23 07/13/24 Allergies Allergy/AdvReac Type Severity Reaction Status Date / Time diclofenac Allergy Severe sob Verified 07/12/24 17:18 Penicillins Allergy Intermediate Itching Verified 07/12/24 17:18 penicillin V Allergy Itching Verified 07/12/24 17:18 Review of Systems Review of Systems: All systems reviewed & are unremarkable except as noted in HPI and below PMFSH Past Medical History Medical History Adenomatous colon polyp Arthritis Cancer lung and lymphnodes 2012 and 2014 COPD (chronic obstructive pulmonary disease) uses inhaler, right upper lobe removed lung cancer 2012;lower lobe and lymphnodes 2014 CVA (cerebral vascular accident) 06/2018 TPA administered and rehab-pt states now no residual effect Diabetes last A1C=5.9 (10/2019) DVT (deep venous thrombosis) ESR raised ESR raised GERD without esophagitis Gout History of chemotherapy HTN (hypertension) Hx of pulmonary embolus on Elliquis Hx of radiation therapy Hypercholesterolemia Inflammatory arthritis Lung cancer Neuropathy Neutropenia Obesity Osteoarthritis of left knee Peripheral neuropathy Pure hypercholesterolemia, unspecified Shingles Sleep apnea Surgical History Surgical History History of dilatation and curettage History of endoscopy History of esophagogastroduodenoscopy (EGD) History of lobectomy of lung History of removal of Port-a-Cath History of right knee joint replacement 2014 History of total right knee replacement (TKR) partial knee; Dr Power Hx of cholecystectomy Hx of colonoscopy Hx of tonsillectomy Hx of total hysterectomy Family History Family History Mother Carcinoma of colon Cerebrovascular accident Father Family history of heart disease in male family member before age 55 Sibling Family history of hypercholesterolemia Hypertension Glaucoma Other Family history of lung cancer Family history of malignant neoplasm of bone Family history of malignant neoplasm of urinary bladder Social History Social History Social History: She i
[2024-07-12] MEDS: IPRATROPIUM BR 0.02% INH SOLN 0.5 MG/2.5 ML VIAL INHALATION (20:13)
[2024-07-12] MEDS: ALBUTEROL SULFATE NEB 2.5 MG/3 ML INH 5 MG INHALATION (20:13)
[2024-07-12 20:14] VITALS: PULSE 117; RESP 20
[2024-07-12 20:18] VITALS: PULSE 118; RESP 18
[2024-07-12] MEDS: SODIUM CHLORIDE 0.9% IV 1,000 ML 999 ML IV CONT (20:49)
[2024-07-12 20:50] VITALS: BP 148/81; PULSE 119; RESP 22; O2SAT 94; O2SAT 95
[2024-07-12 22:33] LABS: Add Urine Microscopic? YES; Appearance Urine Clear (Clear); Bacteria Urine 4+ /hpf; Bilirubin Urine Negative (Negative); Blood Urine Trace (Negative); Color Urine Yellow (Yellow); Glucose Urine UA Negative (Negative); Ketones Urine Negative (Negative); Leukocyte Esterase Ur Trace LEU/UL (Negative); Nitrate Urine Positive (Negative); Protein Urine Negative (Negative); RBC Urine 0-2 /hpf (0-2); Specific Grav Ur 1.016 (1.001-1.035); Squamous Epithelial Cell Urine None Seen /hpf (Few); Urobilinogen Urine 0.2 mg/dL (<2.0); pH Urine 5.5 (5.0-9.0)
[2024-07-12 22:57] LABS: Basophils Percent Auto 0.4 % (0.2-1.2); Eosinophils Absolute Auto 0.2 K/mm3 (0-0.3); Eosinophils Percent Auto 2.9 % (0-4.4); Hematocrit 35.3 % (37.0-47.0); Hemoglobin 11.3 g/dL (12.0-15.0); Immature Granulocyte Absolute 0.03 K/mm3 (0.00-0.031); Immature Granulocyte Percent A 0.4 % (0-0.5); Lymphocytes Absolute Auto 0.84 K/mm3 (0.9-3.2); Lymphocytes Percent Auto 10.9 % (18.3-44.2); Mean Corpuscular Hemoglobin 31.7 pg (26-34); Mean Corpuscular Volume 99.2 fl (80-100); Mean Platelet Volume 10.5 fl (7.4-10.4); Monocytes Absolute Auto 0.8 K/mm3 (0.1-0.6); Monocytes Percent Auto 9.9 % (2.6-8.5); Neutrophils Absolute Auto 5.8 K/mm3 (1.3-6.7); Neutrophils Percent Auto 75.5 % (45.5-73.1); Platelet Count Result 178 k/mm3 (150-375); Red Blood Count 3.56 M/mm3 (4.2-5.4); Red Cell Distribution Width 15.3 % (11.5-14.5); White Blood Count 7.7 K/mm3 (4.5-10.0)
[2024-07-12 23:08] LABS: Lactic Acid Reflex 1.5 mmol/L (0.7-2.0)
[2024-07-12 23:09] LABS: Alanine Aminotransferase 16 U/L (6-35); Albumin Level 3.9 g/dL (3.5-5.1); Alkaline Phosphatase 147 U/L (38-126); Anion Gap 6 mmol/L (4-12); Aspartate Amino Transferase 23 U/L (14-36); Bilirubin,Total 0.2 mg/dL (0.2-1.3); Blood Urea Nitrogen 22 mg/dL (7-17); Calcium 8.7 mg/dL (8.4-10.2); Carbon Dioxide 30 mmol/L (22-30); Chloride 104 mmol/L (98-107); Estimated Glomerular Filt Rate 54; Glucose 122 mg/dL (65-110); INR 1.2; Lipase 93 U/L (23-300); Partial Thromboplastin Time 35.8 Seconds (22.3-36.8); Potassium 4.2 mmol/L (3.4-5.0); Prothrombin Time 15.5 Seconds (11.1-14.7); Sodium 140 mmol/L (137-145)
[2024-07-12 23:17] LABS: NT Pro B Type Natriuretic Pept 230 pg/mL (19.9-100)
[2024-07-12 23:33] LABS: Influenza A QL RT-PCR Negative (Negative); Influenza B QL RT-PCR Negative (Negative); RSV RNA, RT-PCR Negative (Negative); SARS-CoV-2 RNA PCR Negative (Negative)
[2024-07-12 23:35] LABS: Troponin I < 0.012 ng/mL (0.000-0.034)
[2024-07-13] VITALS (15 sets, daily range): BP systolic 125–157; BP diastolic 78–90; PULSE 58–108; RESP 16–20; TEMP 36.5–36.9; O2SAT 94–98; BMI 34.4
[2024-07-13] MEDS: cefTRIAXone 2 GM/NS 100 ML 2 GM/100 ML BAG IVPB ×2 (00:17→23:10)
--- NOTE | 2024-07-13 00:20 | PM.IMHP ---
H&P: HPI History of Present Illness Date/Time: 07/13/24 00:20 Chief Complaint: shortness of breath Narrative: This is a 73-year-old female with past medical history significant for type diabetes mellitus, COPD, stroke, GERD, hypertension, gout, lung CA, neuropathy, hypercholesteremia, sleep apnea. Patient comes to the emergency room due to 4-5 days of shortness of breath cough productive of bridges sputum, chills, fevers, night sweats, pain and burning with urination, muscle aches and pains, poor appetite. Clinical Indication: Shortness of breath CT Scan of the Chest with Contrast: Technique: Contiguous sections were acquired throughout the chest after intravenous administration of 100 cc of Omnipaque 350. Dose reduction technique was used on this scan by utilizing automated exposure control and iterative reconstruction technique. The dose-length product (DLP) was 646.34 mGy-cm. COMPARISON: 02/01/2024 Findings: There is no evidence of any significant mediastinal, hilar or axillary lymphadenopathy. There is no filling defect in the pulmonary arterial tree to suggest pulmonary embolus. There is no evidence of aortic dissection or aneurysm. There is no evidence of pleural or pericardial effusion. Stable consolidation at the right lung apex extending to the right hilum, with right-sided volume loss. Possible prior right-sided lobectomy. Images through the upper abdomen reveal no abnormalities. Impression: No evidence of pulmonary embolus, aortic dissection, or aortic aneurysm. Stable consolidation right lung apex extending to the right hilum with right-sided volume loss. Findings could reflect post therapy change and treated disease. Possible prior right-sided lobectomy. Correlate with surgical history. EXAMINATION: CT abdomen pelvis wo con DATE: 07/13/2024 19:11 INDICATION: Right lower quadrant abdominal pain TECHNIQUE: Computed tomography (CT) of the abdomen and pelvis was performed without intravenous contrast. Automated exposure control and iterative reconstruction technique were employed. Exam dose: 1426.29 mGy-cm total exam DLP. COMPARISON: 03/01/2024 CT abdomen pelvis FINDINGS: There is patchy consolidation in the posterior aspect of the superior segment of the right lower lobe with some air bronchograms suggesting pneumonia. Minimal infiltrate or atelectasis at the base of the middle lobe and basilar right lower lobe. Discoid scarring or atelectasis at the anterior basilar left lower lobe. Prominent left main and left anterior descending coronary arterial calcification. Small sliding hiatal hernia. Status post cholecystectomy. No bile duct or pancreatic duct dilatation. No hepatic, splenic, pancreatic, adrenal or renal space occupying mass lesion is detected. There is residual contrast material in the renal collecting systems and urinary bladder. No bladder wall thickening or intraluminal mass lesion. Status post hysterectomy. There is extensive calcification but normal caliber of the abdominal aorta and iliac arteries. No intraperitoneal or retroperitoneal or pelvic mass lesion or adenopathy or ascites. Normal appendix. Diverticulosis of the left colon; no CT evidence of diverticulitis. No bowel obstruction or intraperitoneal free air. Moderately severe degenerative disc disease at L5-S1. No suspicious osteolytic or osteoblastic lesions. IMPRESSION: Patchy consolidation, superior segment right lower lobe infiltrate and/or atelectasis elsewhere in the included lungs Small sliding hernia Normal appendix Diverticulosis of the colon; no CT evidence of diverticulitis Status post cholecystectomy Review of Systems Review of Systems: Fevers, chills, body aches and pains, poor appetite, generalized malaise, pain or burning with urination, shortness of breath, cough productive of bridges sputum PMFSH Past Medical History Medical History Adenomatous co
[2024-07-13] MEDS: DOXYCYCLINE 100 MG/NS 100 ML 100 MG/100 ML BAG IVPB (00:49)
[2024-07-13] MEDS: SODIUM CHLORIDE 0.9% IV 1,000 ML 999 ML IV CONT ×2 (00:50→10:05)
[2024-07-13 03:15] LABS: Troponin I < 0.012 ng/mL (0.000-0.034)
[2024-07-13] MEDS: AZITHROMYCIN 500 MG/NS 250 ML 500 MG/250 ML BAG 250 MG IVPB (06:01)
[2024-07-13] MEDS: IPRATROPIUM 0.5 MG/ALBUTEROL SULFATE 2.5 MG AMPUL.NEB 3 ML INHALATION ×3 (07:09→19:52)
--- NOTE | 2024-07-13 08:53 | PM.IMPN ---
Progress Note: A&P Assessment and Plan (1) Lobar pneumonia: Code(s): J18.1 - Lobar pneumonia, unspecified organism Status: Acute Assessment and Plan: Patient presents with shortness of breath, productive cough, subjective fever and chills. CTA chest shows consolidation right lung apex into right hilum with volume loss. WBC 7.7, lactic 1.5 Blood cultures pending Legionella, mycoplasma, and pneumococcal antigen pending Started on Rocehpin and Azithromycin for CAP Duo Nebs Q 6 hours Mucinex BID IS, PEP therapy Consider steroids if wheezing given COPD history (2) Acute UTI: Code(s): N39.0 - Urinary tract infection, site not specified Status: Acute Assessment and Plan: Patient has symptoms of dysuria and UA indicates infection Urine culture pending Started on Rocephin (3) COPD (chronic obstructive pulmonary disease): Code(s): J44.9 - Chronic obstructive pulmonary disease, unspecified Status: Acute Assessment and Plan: Continue Trelegy, Montelukast DuoNebs q 6 hour (4) Diabetes: Code(s): E11.9 - Type 2 diabetes mellitus without complications Status: Acute Assessment and Plan: Holding Metformin. Hemoglobin A1C 6.1% in January 2024. s AC/HS accu checks with hypoglycemia protocol Low dose SSI insulin Plan DVT prophylaxis: Eliquis Glycemic control: SSI low dose Code Status: Full Code Disposition: 73 year old woman who presents with shortness of breath and productive cough. Found to have right upper lobe pneumonia on CT. Started on CAP therapy. Also has UTI with symptoms. Blood culture and urine cultures pending. Medication reconciliation obtained via the following: Nurse completed on admission The file time of this note does not necessarily represent the time the patient was seen. Subjective Date/time seen: 07/13/24 08:53 Interval history: 73-year-old female with a history of hyperlipidemia, hypertension, COPD, PE on Eliquis, diabetes presenting with weakness and shortness of breath. She reports for the last three days she has been having a cough and dizziness with position changes. She also has been having right lower abdominal pain with diarrhea. Given the location of her pneumonia in the right apex I asked if she has coughing with eating and drinking. She states she does and was getting referred for speech therapy. Review of Systems Review of Systems: All systems reviewed & are unremarkable except as noted in HPI and below Exam Narrative: General: well appearing, appears stated age. HEENT: normocephalic, atraumatic. Mucous membranes moist. EOMI, PERRLA, bilateral sclera anicteric, no conjunctival injection. Neck supple without JVD, lymphadenopathy, or bruit. Respiratory: diminished on auscultation bilaterally. No rales/rhonic/wheezes. Cardiovascular: Regular rate and rhythm, normal S1-S2 upon auscultation. No murmurs, rubs, or clicks. PMI is nondisplaced, capillary refill less than 3 second. Abdomen: Soft, round, no pulsatile masses, nondistended and moderately tender to RLQ and LLQ. No rebound, no guarding. No CVA tenderness, no hepatosplenomegaly. Bowel sounds present to all four quadrants. No high pitch or tinkling sounds, resonant to percussion. Extremities: No cyanosis, clubbing, or edema present. Pulses are palpable 2/2. Active ROM to all four extremities. Neuro: Alert and orientated x 4. PERRLA. Cranial nerves 2-12 intact without focal deficit. Skin: Warm, dry, and intact, without rash, erythema, or lesion. Lines: Incisions: Psych: pleasant, cooperative, normal speech, normal affect, no hallucinations, no dysarthria Objective Data Vital Signs Vital Signs: Vital Signs - 24 hr 07/12/24 17:14 07/12/24 20:14 07/12/24 20:18 Temperature 98.4 F Pulse Rate 113 H 117 H 118 H Respiratory
[2024-07-13] MEDS: allopurinoL 300 MG TABLET PO (09:55)
[2024-07-13] MEDS: ATORVASTATIN 10 MG TABLET PO (09:55)
[2024-07-13] MEDS: carvediloL 6.25 MG TABLET PO ×2 (09:56→20:50)
[2024-07-13] MEDS: PANTOPRAZOLE 40 MG TABLET PO ×2 (09:56→17:55)
[2024-07-13] MEDS: APIXABAN 5 MG TABLET PO ×2 (09:56→20:51)
[2024-07-13] MEDS: guaiFENesin 12 HR 600 MG TABCR 1200 MG PO ×2 (10:03→20:51)
[2024-07-13] MEDS: MONTELUKAST SODIUM 10 MG TABLET PO (10:04)
[2024-07-13 10:16] LABS: Procalcitonin 0.1 ng/mL
[2024-07-13 12:13] LABS: Glucose Point of Care 95 mg/dl (65-105)
[2024-07-13] MEDS: SODIUM CHLORIDE 0.9% IV 1,000 ML 100 ML IV CONT (12:36)
[2024-07-13] MEDS: FLUTICASONE/UMECLIDIN/VILANTER 100-62.5-25 MCG ELLIPTA 1 PUFF INHALATION (13:13)
[2024-07-13 17:53] LABS: Glucose Point of Care 99 mg/dl (65-105)
[2024-07-13 18:16] LABS: Toxigenic C. Diff POSITIVE (NEGATIVE)
[2024-07-13 21:05] LABS: Glucose Point of Care 97 mg/dl (65-105)
[2024-07-13] MEDS: ACETAMINOPHEN 500 MG TABLET 1000 MG PO (22:52)
[2024-07-13] MEDS: VANCOMYCIN HCL 125 MG ORAL CAPSULE PO (23:10)
[2024-07-14] VITALS (14 sets, daily range): BP systolic 127–141; BP diastolic 62–88; PULSE 68–100; RESP 16–20; TEMP 36.3–36.6; O2SAT 92–101
[2024-07-14] MEDS: IPRATROPIUM 0.5 MG/ALBUTEROL SULFATE 2.5 MG AMPUL.NEB 3 ML INHALATION ×4 (01:34→20:27)
[2024-07-14] MEDS: VANCOMYCIN HCL 125 MG ORAL CAPSULE PO (05:03)
[2024-07-14] MEDS: AZITHROMYCIN 500 MG/NS 250 ML 500 MG/250 ML BAG 250 MG IVPB (05:03)
[2024-07-14 07:04] LABS: Basophils Percent Auto 0.6 % (0.2-1.2); Eosinophils Absolute Auto 0.2 K/mm3 (0-0.3); Eosinophils Percent Auto 2.8 % (0-4.4); Hematocrit 33.8 % (37.0-47.0); Hemoglobin 10.6 g/dL (12.0-15.0); Immature Granulocyte Absolute 0.03 K/mm3 (0.00-0.031); Immature Granulocyte Percent A 0.6 % (0-0.5); Lymphocytes Absolute Auto 0.88 K/mm3 (0.9-3.2); Lymphocytes Percent Auto 16.3 % (18.3-44.2); Mean Corpuscular HGB Conc 31.4 g/dl (32-36); Mean Corpuscular Hemoglobin 31.1 pg (26-34); Mean Corpuscular Volume 99.1 fl (80-100); Mean Platelet Volume 11.7 fl (7.4-10.4); Monocytes Absolute Auto 0.7 K/mm3 (0.1-0.6); Monocytes Percent Auto 13.7 % (2.6-8.5); Neutrophils Absolute Auto 3.6 K/mm3 (1.3-6.7); Platelet Count Result 120 k/mm3 (150-375); Red Blood Count 3.41 M/mm3 (4.2-5.4); Red Cell Distribution Width 15.3 % (11.5-14.5); White Blood Count 5.4 K/mm3 (4.5-10.0)
[2024-07-14 07:22] LABS: Alanine Aminotransferase 15 U/L (6-35); Albumin Level 3.5 g/dL (3.5-5.1); Alkaline Phosphatase 141 U/L (38-126); Anion Gap 6 mmol/L (4-12); Aspartate Amino Transferase 27 U/L (14-36); Bilirubin,Total 0.2 mg/dL (0.2-1.3); Blood Urea Nitrogen 10 mg/dL (7-17); Calcium 8.2 mg/dL (8.4-10.2); Carbon Dioxide 27 mmol/L (22-30); Chloride 103 mmol/L (98-107); Estimated CRCL calculation 60 ml/min; Estimated Glomerular Filt Rate > 60; Glucose 86 mg/dL (65-110); Potassium 3.4 mmol/L (3.4-5.0); Sodium 136 mmol/L (137-145)
--- NOTE | 2024-07-14 07:25 | PM.IMPN ---
Progress Note: A&P Assessment and Plan (1) Lobar pneumonia: Code(s): J18.1 - Lobar pneumonia, unspecified organism Status: Acute Assessment and Plan: Patient presents with shortness of breath, productive cough, subjective fever and chills. CTA chest shows consolidation right lung apex into right hilum with volume loss. WBC 7.7, lactic 1.5 Blood cultures pending Legionella, mycoplasma, and pneumococcal antigen pending Started on Rocephin and Azithromycin for CAP + flagyl for possible aspiration pneumonia Speech therapy evaluation ordered Duo Nebs Q 6 hours Mucinex BID IS, PEP therapy Consider steroids if wheezing given COPD history (2) Acute UTI: Code(s): N39.0 - Urinary tract infection, site not specified Status: Acute Assessment and Plan: Patient has symptoms of dysuria and UA indicates infection Urine culture pending Started on Rocephin (3) Diabetes: Code(s): E11.9 - Type 2 diabetes mellitus without complications Status: Acute Assessment and Plan: Holding Metformin. Hemoglobin A1C 6.1% in January 2024 AC/HS accu checks with hypoglycemia protocol Low dose SSI insulin (4) COPD (chronic obstructive pulmonary disease): Code(s): J44.9 - Chronic obstructive pulmonary disease, unspecified Status: Acute Assessment and Plan: Continue Trelegy, Montelukast DuoNebs q 6 hour (5) Abdominal pain: Code(s): R10.9 - Unspecified abdominal pain Status: Inactive Assessment and Plan: Generalized abdominal pain but more intensity to RLQ and LLQ with diarrhea. Possibly viral gastroenteritis vs colitis vs diverticulitis vs less likely appendicitis CT abdomen and pelvis shows normal appendix, diverticulosis without diverticulitis, status post cholecystectomy, small sliding hernia. C-diff was positive. Patient was started on PO vancomycin initially and then transitioned to Dificid for 10 days Stool cultures pending Plan DVT prophylaxis: Eliquis Glycemic control: SSI low dose Code Status: Full Code Disposition: 73 year old woman who presents with shortness of breath and productive cough. Found to have right upper lobe pneumonia on CT. Started on CAP therapy. Also has UTI with symptoms. Blood culture and urine cultures pending. She is also having diarrhea and c-diff was positive. Medication reconciliation obtained via the following: Nurse completed on admission The file time of this note does not necessarily represent the time the patient was seen. Subjective Date/time seen: 07/14/24 07:25 Interval history: 73-year-old female with a history of hyperlipidemia, hypertension, COPD, PE on Eliquis, diabetes presenting with weakness and shortness of breath. She reports for the last three days she has been having a cough and dizziness with position changes. She also has been having right lower abdominal pain with diarrhea. Given the location of her pneumonia in the right apex I asked if she has coughing with eating and drinking. She states she does and was getting referred for speech therapy. 07/14: Mrs. Dia is feeling poorly today. Her cough is worse but she is not on oxygen. She is still having abdominal pain. Her appetite is poor. She is also upset that she will need SNF at discharge. C-diff was positive. She reports having recent antibiotics for a UTI. Review of Systems Review of Systems: All systems reviewed & are unremarkable except as noted in HPI and below Exam Narrative: General: ill appearing, appears stated age. HEENT: normocephalic, atraumatic. Mucous membranes moist. EOMI, PERRLA, bilateral sclera anicteric, no conjunctival injection. Neck supple without JVD, lymphadenopathy, or bruit. Respiratory: diminished and coarse auscultation bilaterally. No rales/rhonic/wheezes. Cardiovascular: Regular
[2024-07-14] MEDS: FLUTICASONE/UMECLIDIN/VILANTER 100-62.5-25 MCG ELLIPTA 1 PUFF INHALATION (07:40)
[2024-07-14 08:41] LABS: Glucose Point of Care 92 mg/dl (65-105)
[2024-07-14] MEDS: SODIUM CHLORIDE 0.9% IV 1,000 ML 100 ML IV CONT ×2 (08:47→19:45)
[2024-07-14] MEDS: carvediloL 6.25 MG TABLET PO ×2 (08:47→21:02)
[2024-07-14] MEDS: APIXABAN 5 MG TABLET PO ×2 (08:48→21:02)
[2024-07-14] MEDS: allopurinoL 300 MG TABLET PO (08:48)
[2024-07-14] MEDS: ATORVASTATIN 10 MG TABLET PO (08:48)
[2024-07-14] MEDS: MONTELUKAST SODIUM 10 MG TABLET PO (08:48)
[2024-07-14] MEDS: guaiFENesin 12 HR 600 MG TABCR 1200 MG PO ×2 (08:48→21:03)
[2024-07-14] MEDS: PANTOPRAZOLE 40 MG TABLET PO ×2 (08:48→17:24)
[2024-07-14] MEDS: FIDAXOMICIN 200 MG TABLET PO ×2 (08:48→21:02)
[2024-07-14 12:02] LABS: Glucose Point of Care 128 mg/dl (65-105)
[2024-07-14] MEDS: metroNIDAZOLE 500 MG TABLET PO ×2 (13:44→21:03)
--- NOTE | 2024-07-14 15:25 | PCSTNOTE ---
Please refer to the Bedside Swallow Evaluation in the EMR. Please note, silent aspiration cannot be ruled out at bedside.
[2024-07-14 17:22] LABS: Glucose Point of Care 111 mg/dl (65-105)
[2024-07-14 21:16] LABS: Glucose Point of Care 152 mg/dl (65-105)
[2024-07-15] VITALS (13 sets, daily range): BP systolic 147–153; BP diastolic 78–85; PULSE 88–105; RESP 16–20; TEMP 36.4–37; O2SAT 93–100
[2024-07-15] MEDS: cefTRIAXone 2 GM/NS 100 ML 2 GM/100 ML BAG IVPB ×2 (00:37→23:59)
[2024-07-15] MEDS: IPRATROPIUM 0.5 MG/ALBUTEROL SULFATE 2.5 MG AMPUL.NEB 3 ML INHALATION ×4 (01:57→20:30)
[2024-07-15] MEDS: ACETAMINOPHEN 500 MG TABLET 1000 MG PO ×2 (04:48→21:06)
[2024-07-15 05:52] LABS: Basophils Percent Auto 0.5 % (0.2-1.2); Eosinophils Absolute Auto 0.3 K/mm3 (0-0.3); Eosinophils Percent Auto 4.8 % (0-4.4); Hematocrit 32.6 % (37.0-47.0); Hemoglobin 10.2 g/dL (12.0-15.0); Immature Granulocyte Absolute 0.03 K/mm3 (0.00-0.031); Immature Granulocyte Percent A 0.5 % (0-0.5); Lymphocytes Absolute Auto 0.84 K/mm3 (0.9-3.2); Mean Corpuscular HGB Conc 31.3 g/dl (32-36); Mean Corpuscular Hemoglobin 30.8 pg (26-34); Mean Corpuscular Volume 98.5 fl (80-100); Mean Platelet Volume 11.1 fl (7.4-10.4); Monocytes Absolute Auto 0.6 K/mm3 (0.1-0.6); Monocytes Percent Auto 10.6 % (2.6-8.5); Neutrophils Absolute Auto 4.2 K/mm3 (1.3-6.7); Neutrophils Percent Auto 69.6 % (45.5-73.1); Platelet Count Result 132 k/mm3 (150-375); Red Blood Count 3.31 M/mm3 (4.2-5.4); Red Cell Distribution Width 14.9 % (11.5-14.5)
[2024-07-15] MEDS: AZITHROMYCIN 500 MG/NS 250 ML 500 MG/250 ML BAG 250 MG IVPB (05:52)
[2024-07-15] MEDS: SODIUM CHLORIDE 0.9% IV 1,000 ML 100 ML IV CONT ×2 (05:52→19:20)
[2024-07-15] MEDS: metroNIDAZOLE 500 MG TABLET PO (05:52)
[2024-07-15 06:03] LABS: Alanine Aminotransferase 16 U/L (6-35); Albumin Level 3.4 g/dL (3.5-5.1); Alkaline Phosphatase 132 U/L (38-126); Anion Gap 6 mmol/L (4-12); Aspartate Amino Transferase 27 U/L (14-36); Bilirubin,Total 0.2 mg/dL (0.2-1.3); Blood Urea Nitrogen 11 mg/dL (7-17); Calcium 7.7 mg/dL (8.4-10.2); Carbon Dioxide 27 mmol/L (22-30); Chloride 104 mmol/L (98-107); Estimated CRCL calculation 68 ml/min; Estimated Glomerular Filt Rate > 60; Glucose 111 mg/dL (65-110); Potassium 3.4 mmol/L (3.4-5.0); Sodium 137 mmol/L (137-145)
[2024-07-15] MEDS: FLUTICASONE/UMECLIDIN/VILANTER 100-62.5-25 MCG ELLIPTA 1 PUFF INHALATION (07:56)
[2024-07-15 08:46] LABS: Glucose Point of Care 102 mg/dl (65-105)
[2024-07-15] MEDS: carvediloL 6.25 MG TABLET PO ×2 (08:48→21:06)
[2024-07-15] MEDS: allopurinoL 300 MG TABLET PO (08:48)
[2024-07-15] MEDS: MONTELUKAST SODIUM 10 MG TABLET PO (08:48)
[2024-07-15] MEDS: ATORVASTATIN 10 MG TABLET PO (08:48)
[2024-07-15] MEDS: APIXABAN 5 MG TABLET PO ×2 (08:48→21:07)
[2024-07-15] MEDS: FIDAXOMICIN 200 MG TABLET PO ×2 (08:48→21:07)
[2024-07-15] MEDS: PANTOPRAZOLE 40 MG TABLET PO ×2 (08:48→16:59)
[2024-07-15] MEDS: guaiFENesin 12 HR 600 MG TABCR 1200 MG PO ×2 (08:48→21:07)
--- NOTE | 2024-07-15 11:16 | PM.IMPN ---
Progress Note: A&P Assessment and Plan (1) Lobar pneumonia: Code(s): J18.1 - Lobar pneumonia, unspecified organism Status: Acute Assessment and Plan: Patient presents with shortness of breath, productive cough, subjective fever and chills. CTA chest shows consolidation right lung apex into right hilum with volume loss. WBC 7.7, lactic 1.5 Blood cultures pending Legionella, mycoplasma, and pneumococcal antigen pending Started on Rocephin and Azithromycin for CAP + flagyl for possible aspiration pneumonia Speech therapy evaluated her and there were no concerns for aspiration. Okay to stop Flagyl. Duo Nebs Q 6 hours Mucinex BID IS, PEP therapy Added steroids as she is having expiratory wheeze with a history of COPD. (2) Acute UTI: Code(s): N39.0 - Urinary tract infection, site not specified Status: Acute Assessment and Plan: Patient has symptoms of dysuria and UA indicates infection Urine culture grew Klebsiella pneumoniae Started on Rocephin (3) Diabetes: Code(s): E11.9 - Type 2 diabetes mellitus without complications Status: Acute Assessment and Plan: Holding Metformin. Hemoglobin A1C 6.1% in January 2024 AC/HS accu checks with hypoglycemia protocol Low dose SSI insulin (4) COPD (chronic obstructive pulmonary disease): Code(s): J44.9 - Chronic obstructive pulmonary disease, unspecified Status: Acute Assessment and Plan: Continue Trelegy, Montelukast DuoNebs q 6 hour Having expiratory wheezing this morning. Will add steroids 40 mg q.8. (5) Abdominal pain: Code(s): R10.9 - Unspecified abdominal pain Status: Inactive Assessment and Plan: Generalized abdominal pain but more intensity to RLQ and LLQ with diarrhea. Possibly viral gastroenteritis vs colitis vs diverticulitis vs less likely appendicitis CT abdomen and pelvis shows normal appendix, diverticulosis without diverticulitis, status post cholecystectomy, small sliding hernia. C-diff was positive. Patient was started on PO vancomycin initially and then transitioned to Dificid for 10 days Stool cultures pending (6) Anisocoria: Code(s): H57.02 - Anisocoria Status: Acute Assessment and Plan: CT head was negative stroke NIH is 0 Pupils with brisk reaction to light and accommodation May be secondary to medications vs physiologic effect Plan DVT prophylaxis: Eliquis Glycemic control: SSI low dose Code Status: Full Code Disposition: 73 year old woman who presents with shortness of breath and productive cough. Found to have right upper lobe pneumonia on CT. Started on CAP therapy. She is having a coarse congested cough with expiratory wheeze. Also has UTI with symptoms. Cultures with no growth today. Urine cultures growing Klebsiella pneumonia. She is also having diarrhea and c-diff was positive. There were concerns today for slurred speech and anisocoria. CT of her head was negative. NIH 0. Continue with current treatment plan. Will need SNF at discharge. Care coordination is assisting in placement. Medication reconciliation obtained via the following: Nurse completed on admission The file time of this note does not necessarily represent the time the patient was seen. Subjective Date/time seen: 07/15/24 11:16 Interval history: 73-year-old female with a history of hyperlipidemia, hypertension, COPD, PE on Eliquis, diabetes presenting with weakness and shortness of breath. She reports for the last three days she has been having a cough and dizziness with position changes. She also has been having right lower abdominal pain with diarrhea. Given the location of her pneumonia in the right apex I asked if she has coughing with eating and drinking. She states she does and was getting referred for speech therapy. 07/14:
[2024-07-15 11:45] LABS: Glucose Point of Care 128 mg/dl (65-105)
[2024-07-15] MEDS: methylPREDNISolone SOD SUCC 40 MG VIAL IV PUSH ×2 (15:00→21:06)
[2024-07-15 16:42] LABS: Glucose Point of Care 122 mg/dl (65-105)
[2024-07-15 21:54] LABS: Glucose Point of Care 199 mg/dl (65-105)
[2024-07-16] VITALS (13 sets, daily range): BP systolic 134–141; BP diastolic 79–84; PULSE 66–102; RESP 18–20; TEMP 36.1–36.4; O2SAT 95–97
[2024-07-16] MEDS: IPRATROPIUM 0.5 MG/ALBUTEROL SULFATE 2.5 MG AMPUL.NEB 3 ML INHALATION ×4 (02:39→19:57)
[2024-07-16] MEDS: SODIUM CHLORIDE 0.9% IV 1,000 ML 100 ML IV CONT ×2 (05:20→17:35)
[2024-07-16] MEDS: methylPREDNISolone SOD SUCC 40 MG VIAL IV PUSH ×3 (05:20→22:07)
[2024-07-16] MEDS: AZITHROMYCIN 500 MG/NS 250 ML 500 MG/250 ML BAG 250 MG IVPB (05:20)
[2024-07-16 05:32] LABS: Hematocrit 34.7 % (37.0-47.0); Hemoglobin 11.2 g/dL (12.0-15.0); Immature Granulocyte Absolute 0.04 K/mm3 (0.00-0.031); Immature Granulocyte Percent A 1.3 % (0-0.5); Lymphocytes Absolute Auto 0.52 K/mm3 (0.9-3.2); Lymphocytes Percent Auto 16.7 % (18.3-44.2); Mean Corpuscular HGB Conc 32.3 g/dl (32-36); Mean Corpuscular Hemoglobin 31.9 pg (26-34); Mean Corpuscular Volume 98.9 fl (80-100); Mean Platelet Volume 9.9 fl (7.4-10.4); Neutrophils Absolute Auto 2.5 K/mm3 (1.3-6.7); Platelet Count Result 181 k/mm3 (150-375); Red Blood Count 3.51 M/mm3 (4.2-5.4); White Blood Count 3.1 K/mm3 (4.5-10.0)
[2024-07-16 05:44] LABS: Alanine Aminotransferase 18 U/L (6-35); Albumin Level 3.6 g/dL (3.5-5.1); Alkaline Phosphatase 143 U/L (38-126); Anion Gap 7 mmol/L (4-12); Aspartate Amino Transferase 27 U/L (14-36); Bilirubin,Total 0.2 mg/dL (0.2-1.3); Blood Urea Nitrogen 14 mg/dL (7-17); Calcium 7.9 mg/dL (8.4-10.2); Carbon Dioxide 26 mmol/L (22-30); Chloride 103 mmol/L (98-107); Estimated CRCL calculation 68 ml/min; Estimated Glomerular Filt Rate > 60; Glucose 172 mg/dL (65-110); Potassium 3.5 mmol/L (3.4-5.0); Sodium 136 mmol/L (137-145)
[2024-07-16] MEDS: FLUTICASONE/UMECLIDIN/VILANTER 100-62.5-25 MCG ELLIPTA 1 PUFF INHALATION (07:54)
[2024-07-16] MEDS: carvediloL 6.25 MG TABLET PO ×2 (08:23→20:50)
[2024-07-16] MEDS: allopurinoL 300 MG TABLET PO (08:23)
[2024-07-16] MEDS: PANTOPRAZOLE 40 MG TABLET PO ×2 (08:23→16:35)
[2024-07-16] MEDS: guaiFENesin 12 HR 600 MG TABCR 1200 MG PO ×2 (08:23→20:49)
[2024-07-16] MEDS: ATORVASTATIN 10 MG TABLET PO (08:23)
[2024-07-16] MEDS: FIDAXOMICIN 200 MG TABLET PO ×2 (08:23→20:49)
[2024-07-16] MEDS: APIXABAN 5 MG TABLET PO ×2 (08:23→20:50)
[2024-07-16] MEDS: MONTELUKAST SODIUM 10 MG TABLET PO (08:23)
[2024-07-16 09:09] LABS: Glucose Point of Care 199 mg/dl (65-105)
--- NOTE | 2024-07-16 11:09 | PM.IMPN ---
Progress Note: A&P Assessment and Plan (1) Lobar pneumonia: Code(s): J18.1 - Lobar pneumonia, unspecified organism Status: Acute Assessment and Plan: Patient presents with shortness of breath, productive cough, subjective fever and chills. CTA chest shows consolidation right lung apex into right hilum with volume loss. WBC 7.7, lactic 1.5 Blood cultures pending Legionella, mycoplasma, and pneumococcal antigen pending Started on Rocephin and Azithromycin for CAP + flagyl for possible aspiration pneumonia Speech therapy evaluated her and there were no concerns for aspiration. Okay to stop Flagyl. Duo Nebs Q 6 hours Mucinex BID IS, PEP therapy Added steroids as she is having expiratory wheeze with a history of COPD. (2) Acute UTI: Code(s): N39.0 - Urinary tract infection, site not specified Status: Acute Assessment and Plan: Patient has symptoms of dysuria and UA indicates infection Urine culture grew Klebsiella pneumoniae on Rocephin (3) Diabetes: Code(s): E11.9 - Type 2 diabetes mellitus without complications Status: Acute Assessment and Plan: Holding Metformin. Hemoglobin A1C 6.1% in January 2024 AC/HS accu checks with hypoglycemia protocol Low dose SSI insulin (4) COPD (chronic obstructive pulmonary disease): Code(s): J44.9 - Chronic obstructive pulmonary disease, unspecified Status: Acute Assessment and Plan: Continue Trelegy, Montelukast DuoNebs q 6 hour Having expiratory wheezing this morning. Will add steroids 40 mg q.8. (5) Abdominal pain: Code(s): R10.9 - Unspecified abdominal pain Status: Inactive Assessment and Plan: Generalized abdominal pain but more intensity to RLQ and LLQ with diarrhea. Possibly viral gastroenteritis vs colitis vs diverticulitis vs less likely appendicitis CT abdomen and pelvis shows normal appendix, diverticulosis without diverticulitis, status post cholecystectomy, small sliding hernia. C-diff was positive. Patient was started on PO vancomycin initially and then transitioned to Dificid for 10 days Stool cultures pending (6) Anisocoria: Code(s): H57.02 - Anisocoria Status: Acute Assessment and Plan: CT head was negative stroke NIH is 0 Pupils with brisk reaction to light and accommodation May be secondary to medications vs physiologic effect Plan DVT prophylaxis: Eliquis Glycemic control: SSI low dose Code Status: Full Code Disposition: 73 year old woman who presents with shortness of breath and productive cough. Found to have right upper lobe pneumonia on CT. Started on CAP therapy. She is having a coarse congested cough with expiratory wheeze. Also has UTI with symptoms. Cultures with no growth today. Urine cultures growing Klebsiella pneumonia. She is also having diarrhea and c-diff was positive. There were concerns today for slurred speech and anisocoria. CT of her head was negative. NIH 0. Continue with current treatment plan. Will need SNF at discharge. Care coordination is assisting in placement. Medication reconciliation obtained via the following: Nurse completed on admission The file time of this note does not necessarily represent the time the patient was seen. Time Spent With Patient Time with patient: Greater than 35 minutes Subjective Date/time seen: 07/16/24 11:09 Interval history: 73-year-old female with a history of hyperlipidemia, hypertension, COPD, PE on Eliquis, diabetes presenting with weakness and shortness of breath. She reports for the last three days she has been having a cough and dizziness with position changes. She also has been having right lower abdominal pain with diarrhea. Given the location of her pneumonia in the right apex I asked if she has coughing with eating and drinking. She states she do
[2024-07-16 12:21] LABS: Glucose Point of Care 146 mg/dl (65-105)
[2024-07-16 17:29] LABS: Glucose Point of Care 207 mg/dl (65-105)
[2024-07-16] MEDS: INSULIN ASPART (*BKC) 100 UNITS/ML SUB-Q (17:34)
[2024-07-16 21:38] LABS: Pneumococcal Antigen Urine NOT DETECTED
[2024-07-16 21:52] LABS: Glucose Point of Care 196 mg/dl (65-105)
[2024-07-16] MEDS: ACETAMINOPHEN 500 MG TABLET 1000 MG PO (22:06)
[2024-07-17] VITALS (13 sets, daily range): BP systolic 122–174; BP diastolic 65–94; PULSE 64–104; RESP 18–22; TEMP 36.3–36.8; O2SAT 92–100
[2024-07-17] MEDS: cefTRIAXone 2 GM/NS 100 ML 2 GM/100 ML BAG IVPB (00:30)
[2024-07-17] MEDS: IPRATROPIUM 0.5 MG/ALBUTEROL SULFATE 2.5 MG AMPUL.NEB 3 ML INHALATION ×4 (01:38→19:55)
[2024-07-17 05:46] LABS: Hemoglobin 11.1 g/dL (12.0-15.0); Immature Granulocyte Absolute 0.06 K/mm3 (0.00-0.031); Immature Granulocyte Percent A 1.2 % (0-0.5); Lymphocytes Absolute Auto 0.59 K/mm3 (0.9-3.2); Lymphocytes Percent Auto 12.1 % (18.3-44.2); Mean Corpuscular HGB Conc 32.6 g/dl (32-36); Mean Corpuscular Hemoglobin 31.5 pg (26-34); Mean Corpuscular Volume 96.6 fl (80-100); Mean Platelet Volume 11.4 fl (7.4-10.4); Monocytes Absolute Auto 0.1 K/mm3 (0.1-0.6); Monocytes Percent Auto 2.5 % (2.6-8.5); Neutrophils Absolute Auto 4.1 K/mm3 (1.3-6.7); Neutrophils Percent Auto 84.2 % (45.5-73.1); Platelet Count Result 169 k/mm3 (150-375); Red Blood Count 3.52 M/mm3 (4.2-5.4); White Blood Count 4.9 K/mm3 (4.5-10.0)
[2024-07-17] MEDS: AZITHROMYCIN 500 MG/NS 250 ML 500 MG/250 ML BAG 200 MG IVPB (05:57)
[2024-07-17] MEDS: methylPREDNISolone SOD SUCC 40 MG VIAL IV PUSH (06:00)
[2024-07-17] MEDS: FLUTICASONE/UMECLIDIN/VILANTER 100-62.5-25 MCG ELLIPTA 1 PUFF INHALATION (07:10)
[2024-07-17 07:36] LABS: Alanine Aminotransferase 19 U/L (6-35); Albumin Level 3.7 g/dL (3.5-5.1); Alkaline Phosphatase 129 U/L (38-126); Anion Gap 10 mmol/L (4-12); Aspartate Amino Transferase 31 U/L (14-36); Bilirubin,Total 0.2 mg/dL (0.2-1.3); Blood Urea Nitrogen 15 mg/dL (7-17); Calcium 7.8 mg/dL (8.4-10.2); Carbon Dioxide 24 mmol/L (22-30); Chloride 105 mmol/L (98-107); Estimated CRCL calculation 67 ml/min; Estimated Glomerular Filt Rate > 60; Glucose 145 mg/dL (65-110); Potassium 3.4 mmol/L (3.4-5.0); Sodium 139 mmol/L (137-145)
[2024-07-17 08:53] LABS: Glucose Point of Care 154 mg/dl (65-105)
[2024-07-17] MEDS: ATORVASTATIN 10 MG TABLET PO (09:01)
[2024-07-17] MEDS: MONTELUKAST SODIUM 10 MG TABLET PO (09:01)
[2024-07-17] MEDS: FIDAXOMICIN 200 MG TABLET PO ×2 (09:01→20:27)
[2024-07-17] MEDS: APIXABAN 5 MG TABLET PO ×2 (09:01→20:26)
[2024-07-17] MEDS: guaiFENesin 12 HR 600 MG TABCR 1200 MG PO ×2 (09:01→20:26)
[2024-07-17] MEDS: PANTOPRAZOLE 40 MG TABLET PO ×2 (09:01→17:12)
[2024-07-17] MEDS: allopurinoL 300 MG TABLET PO (09:01)
[2024-07-17] MEDS: carvediloL 6.25 MG TABLET PO ×2 (09:01→20:27)
--- NOTE | 2024-07-17 10:38 | PM.IMPN ---
Progress Note: A&P Assessment and Plan (1) Lobar pneumonia: Code(s): J18.1 - Lobar pneumonia, unspecified organism Status: Acute Assessment and Plan: Patient presents with shortness of breath, productive cough, subjective fever and chills. CTA chest shows consolidation right lung apex into right hilum with volume loss. WBC 7.7, lactic 1.5 Blood cultures pending Legionella, mycoplasma, and pneumococcal antigen pending Started on Rocephin and Azithromycin for CAP + flagyl for possible aspiration pneumonia Speech therapy evaluated her and there were no concerns for aspiration. Okay to stop Flagyl. Duo Nebs Q 6 hours Mucinex BID IS, PEP therapy Added steroids as she is having expiratory wheeze with a history of COPD - 1.5 d of treatment- will stop steroids as cdiff positive 07/17- pt is doing well- switched to PO antibiotics- Omnicef- will need 4 doses- 2 more day - can be transferred to SNF now if accepted. - continue to do IS, Up to the chair TID (2) Acute UTI: Code(s): N39.0 - Urinary tract infection, site not specified Status: Acute Assessment and Plan: Patient has symptoms of dysuria and UA indicates infection Urine culture grew Klebsiella pneumoniae on Rocephin -completed-n (3) Diabetes: Code(s): E11.9 - Type 2 diabetes mellitus without complications Status: Acute Assessment and Plan: Holding Metformin. Hemoglobin A1C 6.1% in January 2024 AC/HS accu checks with hypoglycemia protocol Low dose SSI insulin (4) COPD (chronic obstructive pulmonary disease): Code(s): J44.9 - Chronic obstructive pulmonary disease, unspecified Status: Acute Assessment and Plan: Continue Trelegy, Montelukast DuoNebs q 6 hour Having expiratory wheezing this morning. Will add steroids 40 mg q.8. (5) Abdominal pain: Code(s): R10.9 - Unspecified abdominal pain Status: Inactive Assessment and Plan: Generalized abdominal pain but more intensity to RLQ and LLQ with diarrhea. Possibly viral gastroenteritis vs colitis vs diverticulitis vs less likely appendicitis CT abdomen and pelvis shows normal appendix, diverticulosis without diverticulitis, status post cholecystectomy, small sliding hernia. C-diff was positive. Patient was started on PO vancomycin initially and then transitioned to Dificid for 10 days Stool cultures pending (6) Anisocoria: Code(s): H57.02 - Anisocoria Status: Acute Assessment and Plan: CT head was negative stroke NIH is 0 Pupils with brisk reaction to light and accommodation May be secondary to medications vs physiologic effect Plan DVT prophylaxis: Eliquis Glycemic control: SSI low dose Code Status: Full Code Disposition: 73 year old woman who presents with shortness of breath and productive cough. Found to have right upper lobe pneumonia on CT. Started on CAP therapy. She is having a coarse congested cough with expiratory wheeze. Also has UTI with symptoms. Cultures with no growth today. Urine cultures growing Klebsiella pneumonia. She is also having diarrhea and c-diff was positive. There were concerns today for slurred speech and anisocoria. CT of her head was negative. NIH 0. Continue with current treatment plan. Will need SNF at discharge. Care coordination is assisting in placement. Medication reconciliation obtained via the following: Nurse completed on admission The file time of this note does not necessarily represent the time the patient was seen. Time Spent With Patient Time with patient: Greater than 35 minutes Subjective Date/time seen: 07/17/24 10:38 Interval history: 73-year-old female with a history of hyperlipidemia, hypertension, COPD, PE on Eliquis, diabetes presenting with weakness and shortness of breath. She reports for the last three days she has
[2024-07-17 12:18] LABS: Glucose Point of Care 186 mg/dl (65-105)
[2024-07-17 17:06] LABS: Glucose Point of Care 147 mg/dl (65-105)
[2024-07-17] MEDS: CEFDINIR 300 MG CAPSULE PO (20:26)
[2024-07-18] VITALS (8 sets, daily range): BP systolic 159; BP diastolic 87; PULSE 83–102; RESP 18–24; TEMP 36.4; O2SAT 92–99
[2024-07-18 00:42] LABS: Glucose Point of Care 167 mg/dl (65-105)
[2024-07-18] MEDS: ACETAMINOPHEN 500 MG TABLET 1000 MG PO ×2 (01:55→08:57)
[2024-07-18] MEDS: IPRATROPIUM 0.5 MG/ALBUTEROL SULFATE 2.5 MG AMPUL.NEB 3 ML INHALATION ×3 (03:45→14:21)
[2024-07-18 05:42] LABS: Basophils Percent Auto 0.2 % (0.2-1.2); Hematocrit 35.1 % (37.0-47.0); Immature Granulocyte Absolute 0.07 K/mm3 (0.00-0.031); Immature Granulocyte Percent A 1.1 % (0-0.5); Lymphocytes Percent Auto 16.9 % (18.3-44.2); Mean Corpuscular HGB Conc 31.3 g/dl (32-36); Mean Corpuscular Hemoglobin 30.7 pg (26-34); Mean Platelet Volume 9.6 fl (7.4-10.4); Monocytes Absolute Auto 0.7 K/mm3 (0.1-0.6); Monocytes Percent Auto 11.1 % (2.6-8.5); Neutrophils Absolute Auto 4.6 K/mm3 (1.3-6.7); Neutrophils Percent Auto 70.7 % (45.5-73.1); Platelet Count Result 231 k/mm3 (150-375); Red Blood Count 3.58 M/mm3 (4.2-5.4); White Blood Count 6.5 K/mm3 (4.5-10.0)
[2024-07-18 05:57] LABS: Alanine Aminotransferase 28 U/L (6-35); Albumin Level 3.6 g/dL (3.5-5.1); Alkaline Phosphatase 119 U/L (38-126); Anion Gap 7 mmol/L (4-12); Aspartate Amino Transferase 41 U/L (14-36); Bilirubin,Total 0.3 mg/dL (0.2-1.3); Blood Urea Nitrogen 19 mg/dL (7-17); Carbon Dioxide 27 mmol/L (22-30); Chloride 104 mmol/L (98-107); Estimated CRCL calculation 59 ml/min; Estimated Glomerular Filt Rate > 60; Glucose 104 mg/dL (65-110); Sodium 138 mmol/L (137-145)
[2024-07-18] MEDS: MONTELUKAST SODIUM 10 MG TABLET PO (08:57)
[2024-07-18] MEDS: guaiFENesin 12 HR 600 MG TABCR 1200 MG PO (08:57)
[2024-07-18] MEDS: FIDAXOMICIN 200 MG TABLET PO (08:57)
[2024-07-18] MEDS: APIXABAN 5 MG TABLET PO (08:57)
[2024-07-18] MEDS: ATORVASTATIN 10 MG TABLET PO (08:58)
[2024-07-18] MEDS: PANTOPRAZOLE 40 MG TABLET PO (08:58)
[2024-07-18] MEDS: CEFDINIR 300 MG CAPSULE PO (08:58)
[2024-07-18] MEDS: allopurinoL 300 MG TABLET PO (08:58)
[2024-07-18] MEDS: carvediloL 6.25 MG TABLET PO (08:59)
[2024-07-18 09:06] LABS: Glucose Point of Care 107 mg/dl (65-105)
--- NOTE | 2024-07-18 09:52 | PM.IMPN ---
Progress Note: A&P Assessment and Plan (1) Lobar pneumonia: Code(s): J18.1 - Lobar pneumonia, unspecified organism Status: Acute Assessment and Plan: Patient presents with shortness of breath, productive cough, subjective fever and chills. CTA chest shows consolidation right lung apex into right hilum with volume loss. WBC 7.7, lactic 1.5 Blood cultures pending Legionella, mycoplasma, and pneumococcal antigen pending Started on Rocephin and Azithromycin for CAP + flagyl for possible aspiration pneumonia Speech therapy evaluated her and there were no concerns for aspiration. Okay to stop Flagyl. Duo Nebs Q 6 hours Mucinex BID IS, PEP therapy Added steroids as she is having expiratory wheeze with a history of COPD - 1.5 d of treatment- will stop steroids as cdiff positive 07/17- pt is doing well- switched to PO antibiotics- Omnicef- will need 4 doses- 2 more day - can be transferred to SNF now if accepted. - continue to do IS, Up to the chair TID pending placement (2) Acute UTI: Code(s): N39.0 - Urinary tract infection, site not specified Status: Acute Assessment and Plan: Patient has symptoms of dysuria and UA indicates infection Urine culture grew Klebsiella pneumoniae on Rocephin -completed-n (3) Diabetes: Code(s): E11.9 - Type 2 diabetes mellitus without complications Status: Acute Assessment and Plan: Holding Metformin. Hemoglobin A1C 6.1% in January 2024 AC/HS accu checks with hypoglycemia protocol Low dose SSI insulin (4) COPD (chronic obstructive pulmonary disease): Code(s): J44.9 - Chronic obstructive pulmonary disease, unspecified Status: Acute Assessment and Plan: Continue Trelegy, Montelukast DuoNebs q 6 hour Having expiratory wheezing this morning. Will add steroids 40 mg q.8. (5) Abdominal pain: Code(s): R10.9 - Unspecified abdominal pain Status: Inactive Assessment and Plan: Generalized abdominal pain but more intensity to RLQ and LLQ with diarrhea. Possibly viral gastroenteritis vs colitis vs diverticulitis vs less likely appendicitis CT abdomen and pelvis shows normal appendix, diverticulosis without diverticulitis, status post cholecystectomy, small sliding hernia. C-diff was positive. Patient was started on PO vancomycin initially and then transitioned to Dificid for 10 days (end date 07/23 2100) Stool cultures pending (6) Anisocoria: Code(s): H57.02 - Anisocoria Status: Acute Assessment and Plan: CT head was negative stroke NIH is 0 Pupils with brisk reaction to light and accommodation May be secondary to medications vs physiologic effect Plan DVT prophylaxis: Eliquis Glycemic control: SSI low dose Code Status: Full Code Disposition: 73 year old woman who presents with shortness of breath and productive cough. Found to have right upper lobe pneumonia on CT. Started on CAP therapy. She is having a coarse congested cough with expiratory wheeze. Also has UTI with symptoms. Cultures with no growth today. Urine cultures growing Klebsiella pneumonia. She is also having diarrhea and c-diff was positive. There were concerns today for slurred speech and anisocoria. CT of her head was negative. NIH 0. Continue with current treatment plan. Will need SNF at discharge. Care coordination is assisting in placement. Medication reconciliation obtained via the following: Nurse completed on admission The file time of this note does not necessarily represent the time the patient was seen. Subjective Date/time seen: 07/18/24 09:52 Interval history: 73-year-old female with a history of hyperlipidemia, hypertension, COPD, PE on Eliquis, diabetes presenting with weakness and shortness of breath. She reports for the last three days she has been having a cough and
[2024-07-18] MEDS: FLUTICASONE/UMECLIDIN/VILANTER 100-62.5-25 MCG ELLIPTA 1 PUFF INHALATION (09:55)
--- NOTE | 2024-07-18 11:50 | PCOTNOTE ---
Attempted to see Patient at this time for OT treatment session. Patient declined, stated she just recently laid down, taking a nap .
[2024-07-18 12:23] LABS: Glucose Point of Care 148 mg/dl (65-105)
--- NOTE | 2024-07-18 14:08 | PM.DS ---
DS: Admitting Diagnosis Discharge Date 07/18 Admitting Diagnosis sob DS: Discharge Diagnosis Discharge Diagnosis (1) Lobar pneumonia: Code(s): J18.1 - Lobar pneumonia, unspecified organism Status: Acute Assessment and Plan: Patient presents with shortness of breath, productive cough, subjective fever and chills. CTA chest shows consolidation right lung apex into right hilum with volume loss. WBC 7.7, lactic 1.5 Blood cultures pending Legionella, mycoplasma, and pneumococcal antigen pending Started on Rocephin and Azithromycin for CAP + flagyl for possible aspiration pneumonia Speech therapy evaluated her and there were no concerns for aspiration. Okay to stop Flagyl. Duo Nebs Q 6 hours Mucinex BID IS, PEP therapy Added steroids as she is having expiratory wheeze with a history of COPD - 1.5 d of treatment- will stop steroids as cdiff positive 07/17- pt is doing well- switched to PO antibiotics- Omnicef- will need 4 doses- 2 more day - can be transferred to SNF now if accepted. - continue to do IS, Up to the chair TID pending placement (2) Acute UTI: Code(s): N39.0 - Urinary tract infection, site not specified Status: Acute Assessment and Plan: Patient has symptoms of dysuria and UA indicates infection Urine culture grew Klebsiella pneumoniae on Rocephin -completed-n (3) Diabetes: Code(s): E11.9 - Type 2 diabetes mellitus without complications Status: Acute Assessment and Plan: Holding Metformin. Hemoglobin A1C 6.1% in January 2024 AC/HS accu checks with hypoglycemia protocol Low dose SSI insulin (4) COPD (chronic obstructive pulmonary disease): Code(s): J44.9 - Chronic obstructive pulmonary disease, unspecified Status: Acute Assessment and Plan: Continue Trelegy, Montelukast DuoNebs q 6 hour Having expiratory wheezing this morning. Will add steroids 40 mg q.8. (5) Abdominal pain: Code(s): R10.9 - Unspecified abdominal pain Status: Inactive Assessment and Plan: Generalized abdominal pain but more intensity to RLQ and LLQ with diarrhea. Possibly viral gastroenteritis vs colitis vs diverticulitis vs less likely appendicitis CT abdomen and pelvis shows normal appendix, diverticulosis without diverticulitis, status post cholecystectomy, small sliding hernia. C-diff was positive. Patient was started on PO vancomycin initially and then transitioned to Dificid for 10 days (end date 07/23 2100) Stool cultures pending (6) Anisocoria: Code(s): H57.02 - Anisocoria Status: Acute Assessment and Plan: CT head was negative stroke NIH is 0 Pupils with brisk reaction to light and accommodation May be secondary to medications vs physiologic effect Plan final dx: pneumonia, c.diff DVT prophylaxis: Eliquis Glycemic control: SSI low dose Code Status: Full Code Disposition: 73 year old woman who presents with shortness of breath and productive cough. Found to have right upper lobe pneumonia on CT. Started on CAP therapy. She is having a coarse congested cough with expiratory wheeze. Also has UTI with symptoms. Cultures with no growth today. Urine cultures growing Klebsiella pneumonia. She is also having diarrhea and c-diff was positive. There were concerns today for slurred speech and anisocoria. CT of her head was negative. NIH 0. Continue with current treatment plan. Will need SNF at discharge. Care coordination is assisting in placement. Medication reconciliation obtained via the following: Nurse completed on admission The file time of this note does not necessarily represent the time the patient was seen. DS: Summary Hospital Course Hospital Course: Interval history: 73-year-old female with a history of hyperlipidemia, hypertension, COPD, PE on Eliquis, diabetes pr
[2024-07-22 15:54] LABS: Mycoplasma IgM Antibody Titer 265 U/mL
[2024-07-29 02:38] LABS: Legionella pneumophila Ag Ur NOT DETECTED
== END 2024-07-18 15:30 | DRG 194 ==
LOC: ANHED 19:40 → ANH3MED 07-13 00:50
PROVIDERS: Nurse Practitioner Acute Care; Physician Assistant; Admitting Provider Internal Medicine; Emergency Provider Emergency Medicine; PCP Internal Medicine; Visit Provider Nurse Practitioner
DX: J18.1 Lobar pneumonia, unspecified organism (principal); A04.72 Enterocolitis due to Clostridium difficile, not specified as recurrent; J44.0 Chronic obstructive pulmonary disease with (acute) lower respiratory infection; N39.0 Urinary tract infection, site not specified; B96.1 Klebsiella pneumoniae [K. pneumoniae] as the cause of diseases classified elsewhere; Z20.822 Contact with and (suspected) exposure to COVID-19; H57.02 Anisocoria; E78.5 Hyperlipidemia, unspecified; I10 Essential (primary) hypertension; E66.9 Obesity, unspecified; K21.9 Gastro-esophageal reflux disease without esophagitis; E11.42 Type 2 diabetes mellitus with diabetic polyneuropathy; G47.30 Sleep apnea, unspecified; Z86.711 Personal history of pulmonary embolism; Z79.01 Long term (current) use of anticoagulants; Z85.118 Personal history of other malignant neoplasm of bronchus and lung; Z85.89 Personal history of malignant neoplasm of other organs and systems; Z86.73 Personal history of transient ischemic attack (TIA), and cerebral infarction without residual deficits; Z86.718 Personal history of other venous thrombosis and embolism; Z68.34 Body mass index [BMI] 34.0-34.9, adult; Z96.651 Presence of right artificial knee joint; Z90.49 Acquired absence of other specified parts of digestive tract; Z90.710 Acquired absence of both cervix and uterus; Z87.891 Personal history of nicotine dependence; Z79.84 Long term (current) use of oral hypoglycemic drugs
CPT/HCPCS: 36415; 70450; 71275; 74176; 80053; 81001; 82948; 83605; 83690; 83880; 84145; 84484; 85025; 85610; 85730; 86738; 87040; 87045; 87077; 87086; 87088; 87186; 87427; 87449; 87493; 87637; 87651; 87899; 92610; 93005; 94640; 94667; 96360; 96361; 97110; 97161; 97166; 97530; 97535; 99285; A9270; J0456; J0696; J1815; J2919; J7030; Q9967

== ENCOUNTER 2025-01-30 08:33 | Inpatient (IN) | payer MEDICARE, SELFPAY ==
[2025-01-30] VITALS (10 sets, daily range): BP systolic 90–122; BP diastolic 48–74; PULSE 85–108; RESP 14–20; TEMP 36.1–37; O2SAT 92–100; BMI 29.5
--- NOTE | ~2025-01-30 | MR_ITS ---
EXAMINATION: MR brain/brain stem wo con DATE: 01/31/2025 07:43 INDICATION: Altered mental status. TECHNIQUE: Magnetic resonance imaging (MRI) of the brain and brainstem was performed without intraven ous contrast. COMPARISON: Brain MRI 02/14/2021 FINDINGS: There are scattered areas of nonspecific increased T2-weighted signal intensity in the cere bral white matter and adrian. There is no intracranial hemorrhage, acute infarction, or abnormal intrac ranial mass lesion. The ventricles are normal in size. There are bilateral mastoid effusions. There i s mild mucosal thickening in the paranasal sinuses. The orbits are normal. IMPRESSION: 1. Worsened extensive nonspecific cerebral white matter disease and pontine disease, which likely rep resents chronic small vessel ischemic disease. Reviewed, dictated and finalized at location A. IMPRESSION: 1. Worsened extensive nonspecific cerebral white matter disease and pontine dis ease, which likely represents chronic small vessel ischemic disease.
--- NOTE | ~2025-01-30 | CT_ITS ---
EXAMINATION: CT brain wo con DATE: 01/30/2025 12:52 INDICATION: Altered mental status. Stroke. TECHNIQUE: Computed tomography (CT) of the head was performed without intravenous contrast. Sagittal and coronal reconstructions were performed. The mA was adjusted according to patient size. Iterative reconstruction technique was employed. The dose-length product was 529.67 mGy-cm. COMPARISON: head CT dated 07/15/2024 FINDINGS: No acute intracranial hemorrhage, acute infarction or abnormal extra axial fluid collection. There is intensive scattered white matter hypoattenuation consistent with chronic small vessel ischemic disea se. Symmetric prominence of the sulci and ventricles consistent with moderate age-appropriate diffuse cerebral volume loss. No mass/mass effect. Mild mucosal thickening the paranasal sinuses. The orbits and mastoid air cells are normal. Intracranial calcified cerebral atherosclerosis is noted. IMPRESSION: 1. Stable appearance of age-related changes including moderate diffuse volume loss and extensive whit e matter hypoattenuation consistent with chronic small vessel ischemic disease. No acute intracranial process. Reviewed, dictated and finalized at location B. IMPRESSION: 1. Stable appearance of age-related changes including moderate diffuse volume l oss and extensive white matter hypoattenuation consistent with chronic small ve ssel ischemic disease. No acute intracranial process.
--- NOTE | ~2025-01-30 | XR_ITS ---
EXAMINATION: XR barium swallow modified DATE: 02/02/2025 12:58 INDICATION: Dysphagia. TECHNIQUE: The patient was given barium-containing material of multiple consistencies to swallow by t he speech pathologist while I performed fluoroscopy. Fluoroscopy exposure time was 2.3 minutes. The n umber of fluoroscopy images saved to the PACS was 1. Dose-area product was 1.271 Gy-cm^2. FINDINGS: There is reduced laryngeal elevation and laryngeal penetration. IMPRESSION: 1. Laryngeal penetration. 2. Please refer to the speech therapy report for recommendations. Reviewed, dictated and finalized at location A.
--- NOTE | ~2025-01-30 | XR_ITS ---
EXAMINATION: XR chest 1V DATE: 02/02/2025 12:54 INDICATION: Altered mental status. Yellow phlegm. TECHNIQUE: A single frontal view of the chest was obtained. COMPARISON: Chest 2 views 04/08/2024, Chest CT 07/12/2024 FINDINGS: There are airspace opacities in right perihilar region and right lung apex with staple line s and volume loss. There is mild scarring at left lung apex. No pleural effusion or pneumothorax. The heart size is normal. Surgical clips in the right upper quadrant are likely from cholecystectomy. IMPRESSION: 1. 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 Reviewed, dictated and finalized at location A.
--- NOTE | 2025-01-30 08:45 | ECG_ITS ---
Test Date: 2025-01-30 08:47:18 Measurements Intervals [place] Rate: 88 P: 45 NE: 186 QRS: 9 QRSD: 85 T: 46 QT: 366 QTc: 444 Interpretive Statements SINUS RHYTHM LOW QRS VOLTAGE IN PRECORDIAL LEADS [QRS DEFLECTION < 1.0 mV IN CHEST LEADS] Compared to ECG 07/12/2024 21:06:13 Sinus tachycardia no longer present Electronically Signed On 01-30-2025 10:59:53 CDT by Rosey Shea M.D.
[2025-01-30 09:08] LABS: Basophils Percent Auto 0.4 % (0.2-1.2); Eosinophils Absolute Auto 0.1 K/mm3 (0-0.3); Eosinophils Percent Auto 1.8 % (0-4.4); Hematocrit 38.8 % (37.0-47.0); Immature Granulocyte Absolute 0.15 K/mm3 (0.00-0.031); Lymphocytes Absolute Auto 1.27 K/mm3 (0.9-3.2); Lymphocytes Percent Auto 17.1 % (18.3-44.2); Mean Corpuscular HGB Conc 30.9 g/dl (32-36); Mean Corpuscular Hemoglobin 30.7 pg (26-34); Mean Corpuscular Volume 99.2 fl (80-100); Mean Platelet Volume 9.7 fl (7.4-10.4); Monocytes Absolute Auto 0.6 K/mm3 (0.1-0.6); Monocytes Percent Auto 8.6 % (2.6-8.5); Neutrophils Absolute Auto 5.2 K/mm3 (1.3-6.7); Neutrophils Percent Auto 70.1 % (45.5-73.1); Platelet Count Result 259 k/mm3 (150-375); Red Blood Count 3.91 M/mm3 (4.2-5.4); Red Cell Distribution Width 15.3 % (11.5-14.5); White Blood Count 7.4 K/mm3 (4.5-10.0)
[2025-01-30] MEDS: SODIUM CHLORIDE 0.9% IV 1,000 ML 999 ML IV CONT (09:13)
[2025-01-30 09:20] LABS: Alanine Aminotransferase 22 U/L (6-35); Albumin Level 3.5 g/dL (3.5-5.1); Alkaline Phosphatase 149 U/L (38-126); Anion Gap 7 mmol/L (4-12); Aspartate Amino Transferase 38 U/L (14-36); Bilirubin,Total 0.3 mg/dL (0.2-1.3); Blood Urea Nitrogen 34 mg/dL (7-17); Calcium 9.4 mg/dL (8.4-10.2); Carbon Dioxide 30 mmol/L (22-30); Chloride 101 mmol/L (98-107); Estimated CRCL calculation 21 ml/min; Estimated Glomerular Filt Rate 21; Glucose 98 mg/dL (65-110); INR 1.3; Potassium 4.9 mmol/L (3.4-5.0); Prothrombin Time 16.4 Seconds (11.1-14.7); Sodium 138 mmol/L (137-145)
[2025-01-30 09:21] LABS: Partial Thromboplastin Time 38.7 Seconds (22.3-36.8)
[2025-01-30 09:29] LABS: Add Urine Microscopic? YES; Appearance Urine Turbid (Clear); Bacteria Urine 4+ /hpf; Bilirubin Urine Negative (Negative); Blood Urine Non-Hemolyzed Trace (Negative); Color Urine Dark Yellow (Yellow); Glucose Urine UA Negative (Negative); Ketones Urine Trace mg/dL (Negative); Leukocyte Esterase Ur 3+ LEU/UL (Negative); Need Manual Microscopic Reviewed; Nitrate Urine Positive (Negative); Non Pathogenic Casts >20; Protein Urine 1+ mg/dL (Negative); RBC Urine 0-2 /hpf (0-2); Specific Grav Ur 1.016 (1.001-1.035); Squamous Epithelial Cell Urine Occasional /hpf (Few); Urobilinogen Urine 0.2 mg/dL (<2.0); WBC Urine >100 /hpf (0-3); pH Urine 5.5 (5.0-9.0)
--- OUTSIDE RECORDS SUMMARY | 2025-01-30 09:36 | XMS_ITS | CONTINUITY OF CARE DOCUMENT ---
Author Name vincenzomohamud vincenzojuankong Address Unknown Organization [facility] Address [address] [place] [address] Phone [phone] Care Team Providers Care Resident Care Associate Name Role Phone Hilda CUBA, Ronald Unavailable BRYON JIM DPM Unavailable CRISTIANO BURGOS MD Unavailable PROBLEMS Condition Status Date Provider Notes Cardiology examination completed 9 - Ronald Stevens MD Swelling of bilateral legs active Ronald arora MD Abnormal EKG active Ronald Stevens MD HTN essential active Ronald Stevens MD Shortness of breath active Ronald Stevens MD CVA active Ronald Stevens MD Diabetes mellitus type II active Ronald cuevas MD Sinus tachycardia active Ronald Stevens MD Chest pain active Juana Ventimiglia [employer] CHF - diastolic active Juana Ventimiglia F [employer] ENCOUNTERS Date Type Provider Location Encounter Diag nosis - In-person encounter Office Visit Ronald Stevens MD [facility] Chest painCHF - diastolic - In-person encounter Office Visit Ronald Stevens MD [facility] - In-person encounter Office Visit Ronald Stevens MD [facility] Sinus tachycardia - In-person encounter Office Visit Ronald Stevens MD [facility] - In-person encounter Office Visit Ronald Stevens MD [facility] - In-person encounter Office Visit Ronald Stevens MD [facility] - In-person encounter Office Visit Ronald Stevens MD [facility] - In-person encounter Office Visit Ronald Stevens MD [facility] - In-person encounter Office Visit Ronald Stevens MD [facility] - In-person encounter Office Visit Ronald Stevens MD [facility] Cardiology examinationCVADiabetes mellitus type II - In-person encounter Office Visit Ronald Stevens MD [facility] - In-person encounter Office Visit Ronald Stevens MD [facility] - In-person encounter Office Visit Ronald Stevens MD [facility] Swelling of bilateral legsAbnormal EKGHTN essentialShortness of breath VITAL SIGNS Date Observation Value Provider blood pressure, diastolic -1 mm[Hg] Vaishnavi nkLogic blood pressure, systolic 116 mm[Hg] Aliya kLogic pulse rate 96 /min Sarath y blood pressure, diastolic 72 mm[Hg] Ja rret blood pressure, systolic 116 mm[Hg] Jar ret blood pressure, cuff size regular Ja rret respiratory rate E&M 16 /min Sarath oxygen saturation, oximetry 97 % Sarath height E&M 65 [in_i] Sarath Body Mass Index (Ratio) 33.94 kg/m2 Leandro Stevens MD blood pressure, cuff size regular Ja rret blood pressure, diastolic 89 mm[Hg] Ja rret blood pressure, systolic 134 mm[Hg] Jar ret pulse rate 93 /min Sarath oxygen saturation, oximetry 93 % Sarath respiratory rate E&M 12 /min Sarath weight E&M 204 [lb_av] Sarath height E&M 65 [in_i] Sarath Body Mass Index (Ratio) 33.78 kg/m2 Leandro Stevens MD pulse rate 109 /min Sarath blood pressure, cuff size regular Ja rret blood pressure, diastolic 83 mm[Hg] Ja rret blood pressure, systolic 151 mm[Hg] Jar ret respiratory rate E&M 12 /min Sarath oxygen saturation, oximetry 93 % weight E&M 203 [lb_av] Sarath height E&M 65 [in_i] Sarath pulse rate 100 /min Cony Tong blood pressure, cuff size regular abdelrahman Tong blood pressure, diastolic 89 mm[Hg] abdelrahman Tong blood pressure, systolic 143 mm[Hg] She isaura Tong oxygen saturation, oximetry 96 % Cony Tong respiratory rate E&M 20 /min Cony Tong height E&M 65 [in_i] Cony Tong Body Mass Index (Ratio) 32.95 kg/m2 Leandro Stevens MD blood pressure, cuff size regular Ke rri Maurygilbertvicenta blood pressure, diastolic 100 mm[Hg] Ke rri Maurylukasnegiannaeldcisco blood pressure, systolic 162 mm[Hg] Lázaro solorio Maurylukasbarry oxygen saturation, oximetry 96 % Yuly Odalis respiratory rate E&M 12 /min Yuly Navjot putnamenegiannaeldcisco pulse rate 94 /min Yuly Madisongiannaxiomy [facility] weight E&M 198 [lb_av] Yuly Maurylukaschris [facility] height E&M 65 [in_i] Yuly Eugenio [facility] Body Mass Index (Ratio) 34.28 kg/m2 Leandro Stevens MD blood pressure, diastolic 88 mm[Hg] Vaishnavi nkLogkristen blood pressure, systolic 152 mm[Hg] Aliya Titusogkristen blood pressure, diastolic 88 mm[Hg] Kina marilyn Cooper blood pressure, systolic 152 mm[Hg] Carlie Cooper pulse rate 111 /min Yuly Cooper oxygen saturation, oximetry 95 % Yuly Cooper weight E&M 206 [lb_av] Yuly Cooper blood pressure, cuff size large An marilyn Cooper height E&M 65 [in_i] Yuly Cooper Body Mass Index (Ratio) 33.61 kg/m2 Leandro Stevens MD oxygen saturation, oximetry 98 % Shima Naranjo blood pressure, diastolic 82 mm[Hg] St rodger Naranjo blood pressure, systolic 136 mm[Hg] Aishwarya Naranjo pulse rate 94 /min Shima Naranjo weight E&M 202 [lb_av] Shima Naranjo respiratory rate E&M 18 /min Shimachadwick paiges height E&M 65 [in_i] Shima Jose A Body Mass Index (Ratio) 34.11 kg/m2 Leandro Stevens MD blood pressure, diastolic 72 mm[Hg] St rodger Jose A blood pressure, systolic 157 mm[Hg] Aishwarya genao Jose A oxygen saturation, oximetry 91 % Shima Jose A pulse rate 102 /min Shima Jose A respiratory rate E&M 18 /min Shimachadwick paiges weight E&M 205 [lb_av] Shima Jose A height E&M 65 [in_i] Shima Jose A Body Mass Index (Ratio) 33.61 kg/m2 Leandro Stevens MD blood pressure, cuff size regular Ke rri Gruenenfvicenta blood pressure, diastolic 90 mm[Hg] Ke rri Gruenenfvicenta blood pressure, systolic 150 mm[Hg] Lázaro ri Odalis oxygen saturation, oximetry 96 % Yuly Odalis respiratory rate E&M 14 /min Yuly neves pulse rate 95 /min Yuly Eugenio wagner weight E&M 202 [lb_av] Yuly Wandanenfe [facility] height E&M 65 [in_i] Yuly Mauryuenenfe shantel Body Mass Index (Ratio) 33.94 kg/m2 Leandro Stevens MD blood pressure, cuff size regular Ke rri Gruenenfelder blood pressure, diastolic 106 mm[Hg] Ke rri Gruenenfelder blood pressure, systolic 166 mm[Hg] Lázaro ri Odalis oxygen saturation, oximetry 93 % Yuly Odalis respiratory rate E&M 12 /min Yuly Navjot indyenenfelder pulse rate 116 /min Yuly Veritoe lder weight E&M 204 [lb_av] Yuly Wandanenfe lder height E&M 65 [in_i] Yuly Sellerse [facility] Body Mass Index (Ratio) 34.44 kg/m2 Leandro Stevens MD blood pressure, diastolic 87 mm[Hg] Ke rri Wandanegiannaeldcisco blood pressure, systolic 151 mm[Hg] Ker ri Maurysheelagiannavicenta blood pressure, cuff size large Ke christen Muñozshahidagiannaasiyaer oxygen saturation, oximetry 93 % Yuly Odalis pulse rate 96 /min Yuly Becker [facility] respiratory rate E&M 16 /min Yuly Morfin pura weight E&M 207 [lb_av] Yuly Becker [facility] height E&M 65 [in_i] Yuly Sellerse [facility] Body Mass Index (Ratio) 33.94 kg/m2 Leandro Stevens MD blood pressure, diastolic 87 mm[Hg] Ri shay Laraerson blood pressure, systolic 142 mm[Hg] Stephen hellindsey LaraHayes blood pressure, cuff size large Ri shay Laraerson oxygen saturation, oximetry 91 % Martha Hayes respiratory rate E&M 14 /min Iron Hayes pulse rate 108 /min Martha Marcocisco son weight E&M 204 [lb_av] Marthaascencion Laracisco son height E&M 65 [in_i] Marthaascencion Phelps son Body Mass Index (Ratio) 33.44 kg/m2 Leandro Stevens MD blood pressure, cuff size large Ke rri Veritovicenta blood pressure, diastolic 80 mm[Hg] Ke rri Veritocopley hospitalcisco blood pressure, systolic 120 mm[Hg] Lázaro Sellersvicenta oxygen saturation, oximetry 97 % Yuly Sellersvicenta respiratory rate E&M 16 /min Yuly smarteldcisco pulse rate 94 /min Yuly Becker lder weight E&M 201 [lb_av] Yuly Becker lder height E&M 65 [in_i] Yuly Becker er ALLERGIES Allergy Name Onset Date Reaction Criticality Status LASIX High Criticality active TORSEMIDE possibly to the sulfur ocmponent and cannot tolerate forusemide either Low Criticality active VOLTAREN High Criticality active PCN High Criticality active RESULTS Date Observation Value Provider Reference Range Interpretation Location microalbumin/crea tinine ratio, urine 8 MCG/MG CREAT Link[facility] <30 Normal microalbumin/tota l urine volume 10 mg/L [facility] Units converted. See lab report for original value. Normal creatinine, random, urine 126 mg/dL [facility] 20-275 Normal NT-pro BNP 78 [facility] Normal calcium, serum 8.9 mg/dL [facility] 8.6-10.4 Normal carbon dioxide, venous blood 31 mmol/L [facility] 20-32 Normal chloride, serum 99 mmol/L [facility] 98-110 Normal potassium, serum 3.4 mmol/L [facility] 3.5-5.3 Low sodium, serum 142 mmol/L [facility] 135-146 Normal urea nitrogen/creatini ne ratio, serum 25 (calc) [facility] 6-22 High creatinine, serum 1.18 mg/dL [facility] 0.60-1.00 High urea nitrogen, blood 29 mg/dL [facility] 7-25 High blood glucose, random 115 mg/dL [facility] 65-99 High microalbumin/crea tinine ratio, urine 2 MCG/MG CREAT [facility] <30 Normal microalbumin/tota l urine volume 2 mg/L [facility] Units converted. See lab report for original value. Normal creatinine, random, urine 93 mg/dL [facility] 20-275 Normal HISTORY OF MEDICATION USE Medication Status Instructions Dates Provider Indications Com ments Jardiance 10 mg tablet active 1 tablet by mouth once a day TAKE 1 TABLET BY MOUTH EVERY DAY Juana CASILLASP furosemide 40 mg tablet active TAKE 1 TABLET BY MOUTH EVERY DAY Ronald Stevens MD carvedilol 6.25 mg tablet active TAKE 1 TABLET BY MOUTH TWICE DAILY Ronald Stevens MD furosemide 40 mg tablet completed 1 tablet by mouth once a day - Ronald Stevens MD ethacrynic acid 25 mg tablet completed TAKE 2 TABLETS BY MOUTH EVERY DAY - Ronald Stevens MD ethacrynic acid 25 mg tablet completed Take 2 tablet by mouth once a day - Tonia Larios atorvastatin 10 mg tablet active Juana PHAM torsemide 20 mg tablet completed Take 1 tablet by mouth as directed TAKE ONE TABLET TWICE A DAY FOR ONE WEEK, AND THEN ONCE A DAY IN THE MORNING AFTER ONE WEEK - Ronald Stevens MD lisinopril 40 mg tablet active Take 1 tablet by mouth once a day Yuly Jacobo Lasix 40 mg tablet completed Take 1 tablet by mouth once a day as directed 03/15/23: Will HOLD Lasix for ONE WEEK - Juanadamir Hartmiglia [employer] triamcinolone acetonide 0.1% cream active Juanadamir Hartmiglia [employer] atorvastatin 10 mg tablet completed - Juanadamir Hartmiglia [employer] torsemide 20 mg tablet completed Take 1 tablet by mouth once a day For leg swelling - Juanadamir Hartmiglia [employer] torsemide 20 mg tablet completed Take 1 tablet by mouth once a day as needed For leg swelling - Ronald Stevens MD allopurinol 300 mg tablet active Yuly Mckenzieolin HFA 90 mcg/actuation HFA aerosol inhaler active Yuly Jacobo Trelegy Ellipta 100-62.5-25 mcg blister with device completed - Juanadamir Hartmiglia [employer] Eliquis 5 mg tablet active Juanadamir Hartmiglia [employer] metoprolol succinate 25 mg tablet extended release 24 hr completed - Juanadamir Hartmiglia [employer] baclofen 10 mg tablet active Yuly Jacobo pravastatin 40 mg tablet completed - Juanadamir Hartmiglia [employer] lisinopril-hydro chlorothiazide 20-12.5 mg tablet completed - Juanadamir Hartmiglia [employer] clindamycin HCl 300 mg capsule completed - Juanadamir Hartmiglia [employer] metformin 500 mg tablet active Take 1 tablet by mouth twice a day Juana Haileymiglia [employer] montelukast 10 mg tablet completed - Juanadamir Hartmiglia [employer] omeprazole 40 mg capsule,delayed release(DR/EC) active Yuly Jacobo SOCIAL HISTORY Date Observation Value Provider personal history of marijuana use no Juanadamir Hartmiglia [employer] drug use no Juanadamir Hartmig aram [employer] alcohol use no Juanadamir Hartmig aram [employer] smoking status Never smoker Juana lakhani [facility] drug use no Ronald Stevens MD alcohol use no Ronald Stevens MD smoking status Never smoker Ronald Stevens MD alcohol use no Ronald Stevens MD smoking, year quit 2011 Ronald arora MD number of years as a smoker 43 a Ronald Stevens MD smoking history, tot al pack/day 1 ppd Ronald Stevens MD cigarette use yes Ronald Santos smoking status Never smoker Ronald Stevens MD social history reviewed E&M revi ewed - no changes required Ronald Stevens MD social history E&M S moking History: Christina ojeda is a former smoker. Ronald Stevens MD social history reviewed E&M revi ewed - no changes required Ronald Stevens MD smoking status Never smoker Cony Tong social history reviewed E&M revi ewed - no changes required Ronald Stevens MD social history E&M S moking History: Christina ojeda is a former smoker. Ronald Stevens MD social history reviewed E&M revi ewed - no changes required Ronald Stevens MD smoking, year quit 2011 Yuly Will iams number of years as a smoker 45 a Yuly Cooper smoking history, tot al pack/day 1 ppd Yulycarrillo Cooper cigarette use yes Yulycarrillo Cooper smoking status Former smoker Yuly Abreu s drug use no Juana Ventimig aram [employer] alcohol use no Juana Ventimig aram [employer] smoking, year quit 2011 Shimachadwick garcia number of years as a smoker 45 a Shima Naranjo smoking history, tot al pack/day 1 ppd Shima Naranjo cigarette use yes Shima Naranjo smoking status Former smoker Shima Naranjo social history E&M S moking History: Christina ojeda is a former smoker. Ronald Stevens MD social history reviewed E&M revi ewed - no changes required Ronald Stevens MD smoking, year quit 2011 Shima garcia number of years as a smoker 45 a Shima Naranjo smoking history, tot al pack/day 1 ppd Shima Naranjo cigarette use yes Shima Naranjo smoking status Former smoker Shima Naranjo social history E&M S moking History: Christina ojeda is a former smoker. Marium Blair NP smoking, year quit 2011 Marium Blair NP number of years as a smoker 45 a Marium Blair NP smoking history, tot al pack/day 1 ppd Marium Blair NP cigarette use yes Marium peck [employer] smoking status Former smoker Marium Nohelia salgado [employer] social history reviewed E&M revi ewed - no changes required Marium Blair NP drug use no Juana Ventimig aram [facility] alcohol use no Juana Ventimig aram [facility] smoking status Former smoker Juana Venti miglia [facility] social history reviewed E&M revi ewed - no changes required Ronald Stevens MD drug use no Ronald Stevens MD alcohol use no Ronald Stevens MD social history E&M S moking History: Christina ojeda is a former smoker. Ronald Stevens MD social history reviewed E&M revi ewed - no changes required Ronald Stevens MD smoking, year quit 2011 Yuly gupta number of years as a smoker 45 a Yuly Jacobo smoking history, tot al pack/day 1 ppd Yuly Jacobo cigarette use yes Yuly yadav smoking status Former smoker Yuly Wallace elliott social history E&M S moking History: Christina ojeda is a former smoker. Ronald Stevens MD social history reviewed E&M revi ewed - no changes required Ronald Stevens MD smoking, year quit 2011 Martha Hayes number of years as a smoker 43 a Martha Hayes smoking history, tot al pack/day 1 ppd Martha Hayes cigarette use yes Martha goode smoking status Former smoker Martha zavaleta social history E&M S moking History: Christina ojeda is a former smoker. Ronald Stevens MD social history reviewed E&M revi ewed - no changes required Ronald Stevens MD number of years as a smoker 45 a Yuly Mendiolalukassammyvicenta smoking history, tot al pack/day 1 ppd Yuly Jacobo smoking, year quit 2011 Yuly De La Rosa candy cigarette use yes Yuly yadav smoking status Former smoker Yuly Wallace nfasiya INSURANCE PROVIDERS Payer name Policy type / Coverage type [place] red libertarian ID [facility] [id number] [place] Medicare [id number] ADVANCE DIRECTIVES Name Date DISCUSSED - NO DECISION MADE TREATMENT PLAN Date Name Performer [id number],S,S he is urinating frequently on 40 mg furosemide S he did have TRISTON that showed normal TRISTON but 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 1 tablet by mouth once a day Lisinopril 40 Mg Tablet (Lisinopril) ..... 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 1 tablet by mouth once a day Lisinopril 40 Mg Tablet (Lisinopril) ..... Take 1 tablet by mouth once a day Ronald Stevens MD [id number],C,H er BP at her facility is around 109/135/140 P ossibly she has white coat hypertension BP today: 162/100 P rior BP: 152/88 (05/14/2023) Labs Reviewed: C reat: 1.18 (03/14/2023) Her updated medication list for this problem includes: Furosemide 40 Mg Tablet (Furosemide) ..... 1 tablet by mouth once a day Lisinopril 40 Mg Tablet (Lisinopril) ..... Take 1 tablet by mouth once a day Ronald Stevens MD [id number],S,w ill conitnue forusemide and for her BP I will add 5mg amlodipine Ronald Stevens MD [id number],S, Ronald Stevens MD [id number],C, B P today: 152/88 P rior BP: 136/82 (04/05/2023) Labs Reviewed: C reat: 1.18 (03/14/2023) Ronald Stevens MD [id number],C,P robably some degreee of diastolic dysfunction but probably allergic to lasix and torsemide. WIll start her on ethacrynic acid 25 mg , 2 tabs 1 time per day. Ronald Stevens MD [id number],S, Juana pham [facility] [id number],C,c hronic. patient reports she is able to walk a little further with addition of torsemide. Will monitor T he following medications were removed from the medication list: Lasix 40 Mg Tablet (Furosemide) ..... Take 1 tablet by mouth once a day as directed 03/15/23: will hold lasix for one week Her updated medication list for this problem includes: Lisinopril 40 Mg Tablet (Lisinopril) ..... Take 1 tablet by mouth once a day Torsemide 20 Mg Tablet (Torsemide) ..... Take 1 tablet by mouth as directed take one tablet twice a day for one week, and then once a day in the morning after one week Juana Corado [facility] [id number],C,B lood pressure better controlled with increase in lisinopril. Patient will continue to monitor twice weekly for us. Will return in 3 mos or sooner if neeed T he following medications were removed from the medication list: Lasix 40 Mg Tablet (Furosemide) ..... Take 1 tablet by mouth once a day as directed 03/15/23: will hold lasix for one week Her updated medication list for this problem includes: Lisinopril 40 Mg Tablet (Lisinopril) ..... Take 1 tablet by mouth once a day Torsemide 20 Mg Tablet (Torsemide) ..... Take 1 tablet by mouth as directed take one tablet twice a day for one week, and then once a day in the morning after one week Juanadamir Corado [facility] [id number],C,T his has improved with medication changes, elevation and compression. will continue with present mediation regimen Juana Haileydebraalbertogaurav [facility] [id number],S,W ill increase Lisinopril to 40 one tablet. Will also add Torsemide 20mg twice daily for ONE WEEK and then once a day in the morning after. BP today: 157/72 P rior BP: 150/90 (03/15/2023) Labs Reviewed: C reat: 1.18 (03/14/2023) Her updated medication list for this problem includes: Lisinopril 40 Mg Tablet (Lisinopril) ..... Take 1 tablet by mouth once a day Torsemide 20 Mg Tablet (Torsemide) ..... Take 1 tablet by mouth as directed take one tablet twice a day for one week, and then once a day in the morning after one week Lasix 40 Mg Tablet (Furosemide) ..... Take 1 tablet by mouth once a day as directed 03/15/23: will hold lasix for one week Ronald Stevens MD [id number],S, Ronald Stevens MD [id number],S,P t presents to office today for f/u for HTN. Pt was seen 03/08. BP at that time was 166/106. Torsemide, Toprol XL and Lisinopril-HCTZ were stopped. Lisinopril 40 and Furosemide 40 were started. Pt BP is elevated today at 150/90. She states that yesterday her BP was 102/52. When her BP was low, she denies having any Sx of dizziness or lightheadedness. She c/o diarrhea since starting the new medication, at most once a day. Per medication list brought in by pt, is dated 02/14/23 and unsure of current meds. Will DECREASE Lisinopril to half (20mg) for ONE WEEK and HOLD Lasix for ONE WEEK. Will arrange RPM. B P today: 150/90 P rior BP: 166/106 (03/08/2023) Labs Reviewed: C reat: 1.18 (03/14/2023) Her updated medication list for this problem includes: Lasix 40 Mg Tablet (Furosemide) ..... Take 1 tablet by mouth once a day as directed 03/15/23: will hold lasix for one week Lisinopril 40 Mg Tablet (Lisinopril) ..... Take 1/2 tablet by mouth once a day Marium Blair [employer] [id number],S, T he following medications were removed from the medication list: Lisinopril-hydrochlorothiazide 20-12.5 Mg Tablet (Lisinopril-hydrochlorothiazide) Her updated medication list for this problem includes: Lisinopril 40 Mg Tablet (Lisinopril) ..... Take 1 tablet by mouth once a day Metformin 500 Mg Tablet (Metformin) Juanadamir Hartmiglgaurav [facility] [id number],C,Will resume d iuretic therapy Juana Haileymiglgaurav [facility] [id number],C,I ncreased with associated LE edema. Will add diuretic back. Will update BMP and pBNP. Will have patient return in one week or sooner if needed. Echo 08/2022 was normal at 60% T he following medications were removed from the medication list: Torsemide 20 Mg Tablet (Torsemide) ..... Take 1 tablet by mouth once a day for leg swelling Metoprolol Succinate 25 Mg Tablet Extended Release 24 Hr (Metoprolol succinate) Lisinopril-hydrochlorothiazide 20-12.5 Mg Tablet (Lisinopril-hydrochlorothiazide) Her updated medication list for this problem includes: Lisinopril 40 Mg Tablet (Lisinopril) ..... Take 1 tablet by mouth once a day Lasix 40 Mg Tablet (Furosemide) ..... Take 1 tablet by mouth once a day as directed Juana Corado [facility] [id number],C,B P elevated today at 166/106 appears meds were adjusted at recent hospital stay. Will increase lisinopril dose, stop HCTZ. Add lasix. Will return in one week or sooner if needed. The following medications were removed from the medication list: Torsemide 20 Mg Tablet (Torsemide) ..... Take 1 tablet by mouth once a day for leg swelling Metoprolol Succinate 25 Mg Tablet Extended Release 24 Hr (Metoprolol succinate) Lisinopril-hydrochlorothiazide 20-12.5 Mg Tablet (Lisinopril-hydrochlorothiazide) Her updated medication list for this problem includes: Lisinopril 40 Mg Tablet (Lisinopril) ..... Take 1 tablet by mouth once a day Lasix 40 Mg Tablet (Furosemide) ..... Take 1 tablet by mouth once a day as directed Juana Corado [facility] [id number],B, Ronald Stevens MD [id number],S, Ronald Stevens MD [id number],W, B P today: 151/87 P rior BP: 142/87 (08/17/2022) Ronald Stevens MD [id number],C,D ue to a combination of copd and CHF w ill check her bnp and bmp w ill do a ambulatory exercise oximetry test and see back in 3 months Ronald Stevens MD [id number],S, Ronald Stevens MD [id number],S, B P today: 142/87 P rior BP: 120/80 (08/03/2022) Ronald Stevens MD [id number],S, Ronald Stevens MD [id number],S,W e will start her on torsemide 20mg once a day as needed for her leg swelling. Some of the swelling is due to increased superficial venous pressure but since it seems to be controlled by the compression socks, we'll just give her the torsemide as needed for when her legs swell up. Ronald Stevens MD [id number],S, Ronald Stevens MD [id number],S,I am concerned of venous reflux, so we will check a standing venous study and also a check a 2D echocardiogram Ronald Stevens MD [id number],C,Her resting H R was 107 Ronald Stevens MD [id number],S, Ronald Stevens MD [id number],C, B P today: 120/80 Ronald Stevens MD [id number],S, Ronald Stevens MD Cardiology: H er updated medication list for this problem includes: Jardiance 10 Mg Tablet (Empagliflozin) ..... 1 tablet by mouth once a day take 1 tablet by mouth every day Metformin 500 Mg Tablet (Metformin) ..... Take 1 tablet by mouth twice a day Lisinopril 40 Mg Tablet (Lisinopril) ..... Take 1 tablet by mouth once a day Juanadamir Corado [facility] Cardiology:continue statin n o asa as on Eliquis [facility] Cardiology:BP 146/72 c ontinue present regimen H er updated medication list for this problem includes: Lisinopril 40 Mg Tablet (Lisinopril) ..... Take 1 tablet by mouth once a day Furosemide 40 Mg Tablet (Furosemide) ..... Take 1 tablet by mouth every day Carvedilol 6.25 Mg Tablet (Carvedilol) ..... Take 1 tablet by mouth twice daily Juanadamir Corado [facility] Cardiology:she has c hronic SOB with minimal activity l ast echo showed EF of 60% with impaired LV relaxation W ill add Jardiance to see if helps with Lv relaxation and SOB H er updated medication list for this problem includes: Lisinopril 40 Mg Tablet (Lisinopril) ..... Take 1 tablet by mouth once a day Furosemide 40 Mg Tablet (Furosemide) ..... Take 1 tablet by mouth every day Carvedilol 6.25 Mg Tablet (Carvedilol) ..... Take 1 tablet by mouth twice daily Juanadamir Corado [facility] Cardiology:Patient r eports tightness in her chest with activity. She also SOB with minimal activity. E KG today shows a NSR. Has risk factors for CAD wtih DM, HTN and previous CVA R ecent echo with EF of 60% W ill plan regadenosine stress test as cannot ambulate she is only able to take a few steps before needing to sit in WC. Her updated medication list for this problem includes: Lisinopril 40 Mg Tablet (Lisinopril) ..... Take 1 tablet by mouth once a day Carvedilol 6.25 Mg Tablet (Carvedilol) ..... Take 1 tablet by mouth twice daily Juanadamir Corado [facility] Cardiology:hx of Ronald Stevens MD Cardiology:check ech o p atient not on juan diego Stevens MD Cardiology: H er updated medication list for this problem includes: Carvedilol 6.25 Mg Tablet (Carvedilol) ..... Take 1 tablet by mouth twice daily Furosemide 40 Mg Tablet (Furosemide) ..... 1 tablet by mouth once a day Lisinopril 40 Mg Tablet (Lisinopril) ..... 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 1 tablet by mouth once a day Lisinopril 40 Mg Tablet (Lisinopril) ..... 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 1 tablet by mouth once a day Lisinopril 40 Mg Tablet (Lisinopril) ..... Take 1 tablet by mouth once a day Ronald Stevens MD Cardiology:Her BP at her facility is around 109/135/140 P ossibly she has white coat hypertension BP today: 162/100 P rior BP: 152/88 (05/14/2023) Labs Reviewed: Jaleel reat: 1.18 (03/14/2023) Her updated medication list for this problem includes: Furosemide 40 Mg Tablet (Furosemide) ..... 1 tablet by mouth once a day Lisinopril 40 Mg Tablet (Lisinopril) ..... Take 1 tablet by mouth once a day Ronald Stevens MD Cardiology:will beni tnue forusemide and for her BP I will add 5mg amlodipine Ronald Stevens MD Cardiology Ronald Stevens MD Cardiology: B P today: 152/88 P rior BP: 136/82 (04/05/2023) Labs Reviewed: C reat: 1.18 (03/14/2023) Ronald Stevens MD Cardiology:Probably some degreee of diastolic dysfunction but probably allergic to lasix and torsemide. WIll start her on ethacrynic acid 25 mg , 2 tabs 1 time per day. Ronald Stevens MD Cardiology Juanadamir nolasco [facility] Cardiology:chronic. patient reports she is able to walk a little further with addition of torsemide. Will monitor T he following medications were removed from the medication list: Lasix 40 Mg Tablet (Furosemide) ..... Take 1 tablet by mouth once a day as directed 03/15/23: will hold lasix for one week Her updated medication list for this problem includes: Lisinopril 40 Mg Tablet (Lisinopril) ..... Take 1 tablet by mouth once a day Torsemide 20 Mg Tablet (Torsemide) ..... Take 1 tablet by mouth as directed take one tablet twice a day for one week, and then once a day in the morning after one week Juanadamir Corado [facility] Cardiology:Blood pre ssure better controlled with increase in lisinopril. Patient will continue to monitor twice weekly for us. Will return in 3 mos or sooner if neeed T he following medications were removed from the medication list: Lasix 40 Mg Tablet (Furosemide) ..... Take 1 tablet by mouth once a day as directed 03/15/23: will hold lasix for one week Her updated medication list for this problem includes: Lisinopril 40 Mg Tablet (Lisinopril) ..... Take 1 tablet by mouth once a day Torsemide 20 Mg Tablet (Torsemide) ..... Take 1 tablet by mouth as directed take one tablet twice a day for one week, and then once a day in the morning after one week Juana Corado [facility] Cardiology:This has improved with medication changes, elevation and compression. will continue with present mediation regimen Juana Corado [facility] Cardiology:Will incr ease Lisinopril to 40 one tablet. Will also add Torsemide 20mg twice daily for ONE WEEK and then once a day in the morning after. BP today: 157/72 P rior BP: 150/90 (03/15/2023) Labs Reviewed: C reat: 1.18 (03/14/2023) Her updated medication list for this problem includes: Lisinopril 40 Mg Tablet (Lisinopril) ..... Take 1 tablet by mouth once a day Torsemide 20 Mg Tablet (Torsemide) ..... Take 1 tablet by mouth as directed take one tablet twice a day for one week, and then once a day in the morning after one week Lasix 40 Mg Tablet (Furosemide) ..... Take 1 tablet by mouth once a day as directed 03/15/23: will hold lasix for one week Ronald Stevens MD Cardiology Ronald Stevens MD Cardiology:Pt presen ts to office today for f/u for HTN. Pt was seen 03/08. BP at that time was 166/106. Torsemide, Toprol XL and Lisinopril-HCTZ were stopped. Lisinopril 40 and Furosemide 40 were started. Pt BP is elevated today at 150/90. She states that yesterday her BP was 102/52. When her BP was low, she denies having any Sx of dizziness or lightheadedness. She c/o diarrhea since starting the new medication, at most once a day. Per medication list brought in by pt, is dated 02/14/23 and unsure of current meds. Will DECREASE Lisinopril to half (20mg) for ONE WEEK and HOLD Lasix for ONE WEEK. Will arrange RPM. B P today: 150/90 P rior BP: 166/106 (03/08/2023) Labs Reviewed: C reat: 1.18 (03/14/2023) Her updated medication list for this problem includes: Lasix 40 Mg Tablet (Furosemide) ..... Take 1 tablet by mouth once a day as directed 03/15/23: will hold lasix for one week Lisinopril 40 Mg Tablet (Lisinopril) ..... Take 1/2 tablet by mouth once a day Marium Blair [facility] Cardiology: T he following medications were removed from the medication list: Lisinopril-hydrochlorothiazide 20-12.5 Mg Tablet (Lisinopril-hydrochlorothiazide) Her updated medication list for this problem includes: Lisinopril 40 Mg Tablet (Lisinopril) ..... Take 1 tablet by mouth once a day Metformin 500 Mg Tablet (Metformin) [facility] Cardiology:Will resume diuretic therapy [facility] Cardiology:Increased with associated LE edema. Will add diuretic back. Will update BMP and pBNP. Will have patient return in one week or sooner if needed. Echo 08/2022 was normal at 60% T he following medications were removed from the medication list: Torsemide 20 Mg Tablet (Torsemide) ..... Take 1 tablet by mouth once a day for leg swelling Metoprolol Succinate 25 Mg Tablet Extended Release 24 Hr (Metoprolol succinate) Lisinopril-hydrochlorothiazide 20-12.5 Mg Tablet (Lisinopril-hydrochlorothiazide) Her updated medication list for this problem includes: Lisinopril 40 Mg Tablet (Lisinopril) ..... Take 1 tablet by mouth once a day Lasix 40 Mg Tablet (Furosemide) ..... Take 1 tablet by mouth once a day as directed [facility] Cardiology:BP elevat ed today at 166/106 appears meds were adjusted at recent hospital stay. Will increase lisinopril dose, stop HCTZ. Add lasix. Will return in one week or sooner if needed. T he following medications were removed from the medication list: Torsemide 20 Mg Tablet (Torsemide) ..... Take 1 tablet by mouth once a day for leg swelling Metoprolol Succinate 25 Mg Tablet Extended Release 24 Hr (Metoprolol succinate) Lisinopril-hydrochlorothiazide 20-12.5 Mg Tablet (Lisinopril-hydrochlorothiazide) Her updated medication list for this problem includes: Lisinopril 40 Mg Tablet (Lisinopril) ..... Take 1 tablet by mouth once a day Lasix 40 Mg Tablet (Furosemide) ..... Take 1 tablet by mouth once a day as directed Juana Corado [employer] Cardiology Ronald Stevens MD Cardiology Ronald Stevens MD Cardiology: B P today: 151/87 P rior BP: 142/87 (08/17/2022) Ronald Stevens MD Cardiology:Due to a combination of copd and CHF w ill check her bnp and bmp w ill do a ambulatory exercise oximetry test and see back in 3 months Ronald Stevens MD Cardiology Ronald Stevens MD Cardiology: B P today: 142/87 P rior BP: 120/80 (08/03/2022) Ronald Stevens MD Cardiology Ronald Stevens MD Cardiology:We will s tart her on torsemide 20mg once a day as needed for her leg swelling. Some of the swelling is due to increased superficial venous pressure but since it seems to be controlled by the compression socks, we'll just give her the torsemide as needed for when her legs swell up. Ronald Stevens MD Cardiology Ronald Stevens MD Cardiology:I am conc erned of venous reflux, so we will check a standing venous study and also a check a 2D echocardiogram Ronald Stevens MD Cardiology:Her resting HR was 10 7 Ronald Stevens MD Cardiology Ronald Stevens MD Cardiology: B P today: 120/80 Ronald Stevens MD Cardiology Ronald Stevens MD Date Name Stress Regadenoson Complete Echo Microalb/Creatinine Urine, Random RPM (remote patient monitoring) PROBNP, N TERMINAL BASIC METABOLIC PANE L W/EGFR Ambulatory Oximetry 6 minute walk test PROBNP, N TERMINAL BASIC METABOLIC PANE L W/EGFR Complete Echo Venous Doppler Bilat eral LE - Reflux Microalb/Creatinine Urine, Random HISTORY OF PROCEDURES Procedure Date Procedure Name Provider Procedure Notes S tatus EKG Ronald Stevens MD completed EKG Ronald Stevens MD completed EKG Ronald Stevens MD completed EKG Ronald Stevens MD completed
--- OUTSIDE RECORDS SUMMARY | 2025-01-30 09:36 | XMS_ITS | Data Portability ---
Author Organization [place] [facility] [employer], Main Office Address [address] [place] [address] Care Team Providers Care Knitting Demonstrator Name Role Phone DUFF CRISTIANO Primary Care Provider CRISTIANO DUFF Referring Provider Assessment No assessment recorded. Plan of Treatment Reminders Order Date Submit Date Provider Last Modified By Organization Details Last Modified Time Details Appointments None recorded. Lab lipid panel, serum 2023 [facility], [address] [place], [address], 4 21:31:09 CMP, serum or plasma 2023 024 [facility], [address] [place], [address], 4 21:31:15 HbA1c (hemoglobin A1c), blood 2023 024 [email or web address] [facility], [address] [place], [address], 4 10:04:24 HbA1c (hemoglobin A1c), blood 2023 024 [email or web address] [facility], [address] [place], [address], 4 09:37:34 Referral None recorded. Procedures None recorded. Surgeries None recorded. Imaging None recorded. Medication Orders Zithromax Z-Denys 250 mg tablet 2023 024 [id number], [address] [facility] [place], [id number], 4 17:06:05 benzonatate 200 mg capsule 2023 024 [id number], [address], [place], [id number], 4 17:06:04 Patient TargetsNo targets recorded. Patient Instructions Encounter Date Encounter Id Patient Instructions Last Modified By Organization Details Last Modified Time 12/18/2023 [id number] Follow-up hypertension -COPD-hyperlipidem ia - non-small cell cancer of the lung - type 2 diabetes all clinically stable. Was on the hospital recently was found to have two small new nodules in the lung. Already has a CT scheduled later this month. Overall is doing about the same in otherwise stable. Will continue on current Rx does not need any blood work at this time. Will follow-up in two months. Portions of the record may have been created with voice recognition software. Occasional wrong-word or s ound-a-like substitutions may have occurred due to the inherent limitations of voice recognition software. Read the chart carefully and recognize, using context, where substitutions have occurred. [email or web address] Not available 12/18/2023 15:36:29 02/12/2024 [id number] Follow-up for recent pneumonia, chronic obstructive lung disease, GERD, gout and non-small cell carcinoma lung all clinically stable. Overall is doing reasonably well at this time. Will continue on current Rx. Did have a pneumonia as well as a urinary tract infection which apparently is improving. Will continue on current Rx recheck back in four weeks. Will obtain a radiographic study of the chest prior to seeing the patient at that time. Chest x-ray should be done at [facility] if at all possible since they have something to compare to Next Appt: 4 Weeks Approximate Date: 03/11/2024 Portions of the record may have been created with voice recognition software. Occasional wrong-word or s ound-a-like substitutions may have occurred due to the inherent limitations of voice recognition software. Read the chart carefully and recognize, using context, where substitutions have occurred. [email or web address] Not available 02/12/2024 14:40:09 03/11/2024 [id number] Follow-up chroni c obstructive lung disease, hypertension, hyperlipidemia type 2 diabetes all clinically stable. Has been in the emergency room on several occasions once again with exacerbation of COPD. 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 No interval complaints any other new complaints. Will check a hemoglobin A1c level since this has not been checked recently. Continue on current Rx follow-up in six weeks Next Appointment: 6 Weeks Approximate Date: 04/22/2024 Portions of the record may have been created with voice recognition software. Occasional wrong-word or s ound-a-like substitutions may have occurred due to the inherent limitations of voice recognition software. Read the chart carefully and recognize, using context, where substitutions have occurred. [email or web address] Not available 03/11/2024 15:07:44 04/15/2024 [id number] Bronchitis, chronic obstructive lung disease, hypertension, GERD as well as non-small cell carcinoma lung. Plan to start on a Z-Denys and some benzoate for cough. Has had a recent chest x-ray which showed interstitial changes and fibrotic changes from previous radiation treatment. Will obtain some radiographic studies of the neck and shoulder. Already had a CT scan of the abdomen done recently. Will continue on current Rx will follow-up in a couple weeks. x-ray of cervical spine X-ray of right shoulder Keep Appointment: Sun 01:30 PM [place] Portions of the record may have been created with voice recognition software. Occasional wrong-word or s ound-a-like substitutions may have occurred due to the inherent limitations of voice recognition software. Read the chart carefully and recognize, using context, where substitutions have occurred. Not available 04/15/2024 17:06:11 04/29/2024 [id number] Follow-up chroni c obstructive lung disease stable, hypertension, hyperlipidemia, type 2 diabetes, GERD as well as non-small cell cancer of lung. Has had some problems recently with the shoulder in the neck. Has undergone some physical therapy has shown clinical improvement during this period of time. Overall otherwise is doing reasonably well. Will check blood work consisting of CBC, lipid, hemoglobin A1c. Continue on current Rx follow-up in three months Next Appointment: 3 Months Approximate Date: 07/28/2024 Portions of the record may have been created with voice recognition software. Occasional wrong-word or s ound-a-like substitutions may have occurred due to the inherent limitations of voice recognition software. Read the chart carefully and recognize, using context, where substitutions have occurred. [email or web address] Not available 04/29/2024 14:44:29 Reason for Referral None Reported. Results Created Date Observation Date Name Description Value Unit Range Abnormal Flag Note LastModifiedBy Organization Detail LastModifiedTime 04/29/20 24 04/29/2024 LIPID PANEL cholesterol 151 mg/dL 140-19 9 [facility] CHRISTA NSUS RECOM MENDA TION FOR APOLLO STERO L: ADULT CHILD LOW RISK: <200 <170 BORDE RLINE : <200- 239 ----- HIGH RISK: >240 >200 Not Available [facility] (Lab) [address] [place], [address], 04/29/2024 21:31:09 04/29/20 24 04/29/2024 LIPID PANEL triglyceride s 256 mg/dL 0-150 high NIH CHRISTA NSUS REPOR T RECOM MENDA TION FOR TRIGL YCERI ANKIT: ADULT CHILD LOW RISK: <150 ----- BODER LINE: 150-1 99 ----- HIGH RISK: >200 ----- Not Available [facility] (Lab) [address] [place], [address], 04/29/2024 21:31:09 04/29/20 24 04/29/2024 LIPID PANEL HDL cholesterol 69 mg/dL 40- Not Available [facility] (Lab) [address] [place], [address], 04/29/2024 21:31:09 04/29/20 24 04/29/2024 LIPID PANEL LDL cholesterol, calculated 31 mg/dL 0-130 NIH CHRISTA NSUS REPOR T RECOM MENDA TIONS FOR LDL: ADULT CHILD LOW RISK <130 <110 (OPTI MAL LDL) <100 ----- BORDE RLINE : 130-1 59 ----- HIGH RISK: >160 >130 A TRIGL YCERI DE RESUL T >400 INVAL IDATE S THE CALCU LATIO N FOR LDL FRACT IONAT ION - THE LDL RESUL T WILL NOT BE REPOR JOCELINE. Not Available [facility] (Lab) [address] [place], [address], 04/29/2024 21:31:09 04/29/20 24 04/29/2024 COMPR EHENS YOLI METAB OLIC PANEL sodium 136 mmol/ L 137-14 5 low Not Available [facility] (Lab) [address] [place], [address], 04/29/2024 21:31:15 04/29/20 24 04/29/2024 COMPR EHENS YOLI METAB OLIC PANEL potassium 3.4 mmol/ L 3.5-5. 1 low Not Available [facility] (Lab) [address] [place], [address], 04/29/2024 21:31:15 04/29/20 24 04/29/2024 COMPR EHENS YOLI METAB OLIC PANEL chloride 97 mmol/ L 98-107 low Not Available [facility] (Lab) [address] [place], [address], 04/29/2024 21:31:15 04/29/20 24 04/29/2024 COMPR EHENS YOLI METAB OLIC PANEL carbon dioxide 30 mmol/ L 22-30 Not Available [facility] (Lab) [address] [place], [address], 04/29/2024 21:31:15 04/29/20 24 04/29/2024 COMPR EHENS YOLI METAB OLIC PANEL anion gap 12.4 mmol/ L 14-22 low Not Available [facility] (Lab) [address] [place], [address], 04/29/2024 21:31:15 04/29/20 24 04/29/2024 COMPR EHENS YOLI METAB OLIC PANEL glucose 154 mg/dL 70-99 high Not Available [facility] (Lab) [address] [place], [address], 04/29/2024 21:31:15 04/29/20 24 04/29/2024 COMPR EHENS YOLI METAB OLIC PANEL BUN 21 mg/dL 8-19 high Not Available [facility] (Lab) [address] [place], [address], 04/29/2024 21:31:15 04/29/20 24 04/29/2024 COMPR EHENS YOLI METAB OLIC PANEL creatinine 1.12 mg/dL 0.66-1 .25 Not Available [facility] (Lab) [address] [place], [address], 04/29/2024 21:31:15 04/29/20 24 04/29/2024 COMPR EHENS YOLI METAB OLIC PANEL GFR 47 Refer ence Range : [place] ge GFR Healt hy Adult : >60 mL/mi n/1.7 3 m2 Chron ic Kidne y Disea se: 15-60 mL/mi n/1.7 3 m2 Kidne y Failu re: <15/m L/min /1.73 m2 www.n iddk. nih.g ov The MDRD study equat ion has not been valid ated in child florentino <18 years of age; pregn ant women ; the elder ly >85 years of age; or in some racia l or ethni c subgr oups, such as [facility] nics. Outsi de the valid ated harvinder eters , estim ated GFR is less accur ate, requi ring clini milli judgm ent on a case- by-ca se basis . Clini milli inter preta tion for other races and ages must be made by the clini wilman. The MDRD study equat ion has not been valid ated for the evalu ation of serum creat inine relat ed to nutri jong l statu s or medic ation usage . For perso ns <18 years of age, a pedia tric GFR calcu lator is avail able on the [facility] websi te: https ://andres w.osmar navarro.o rg/pr ofess ional s/kdo qi/gf r_cal culat or Not Available [facility] (Lab) [address] [place], [address], 04/29/2024 21:31:15 04/29/20 24 04/29/2024 COMPR EHENS YOLI METAB OLIC PANEL alkaline phosphatase 149 U/L 38-126 high Not Available [facility] (Lab) [address] [place], [address], 04/29/2024 21:31:15 04/29/20 24 04/29/2024 COMPR EHENS YOLI METAB OLIC PANEL alanine aminotransfe rase 15 U/L 0-35 Not Available [facility] (Lab) [address] [place], [address], 04/29/2024 21:31:15 04/29/20 24 04/29/2024 COMPR EHENS YOLI METAB OLIC PANEL aspartate aminotransfe rase 16 U/L 15-37 Not Available [facility] (Lab) [address] [place], [address], 04/29/2024 21:31:15 04/29/20 24 04/29/2024 COMPR EHENS OYLI METAB OLIC PANEL bilirubin, total 0.30 mg/dL 0.20-1 .30 Not Available [facility] (Lab) [address] [place], [address], 04/29/2024 21:31:15 04/29/20 24 04/29/2024 COMPR EHENS YOLI METAB OLIC PANEL calcium 8.7 mg/dL 8.4-10 .2 Not Available [facility] (Lab) [address] [place], [address], 04/29/2024 21:31:15 04/29/20 24 04/29/2024 COMPR EHENS YOLI METAB OLIC PANEL total protein 6.7 g/dL 6.3-8. 2 Not Available [facility] (Lab) [address] [place], [address], 04/29/2024 21:31:15 04/29/20 24 04/29/2024 COMPR EHENS YOLI METAB OLIC PANEL albumin 4.1 g/dL 3.0-4. 4 Not Available [facility] (Lab) [address] [place], [address], 04/29/2024 21:31:15 04/29/20 24 04/29/2024 COMPR EHENS YOLI METAB OLIC PANEL globulin 2.6 g/dL 2.6-4. 2 Not Available [facility] (Lab) [address] [place], [address], 04/29/2024 21:31:15 04/29/20 24 04/29/2024 COMPR EHENS YOLI METAB OLIC PANEL A/G ratio 1.6 ratio 1.0-2. 0 Not Available [facility] (Lab) [address] [place], [address], 04/29/2024 21:31:15 04/29/20 24 04/29/2024 HEMOG LOBIN A1C HA1C 6.4 % 4.0-6. 0 high Diabe meme Scree jose francisco Crite chen: <5.7% Consi stent with absen ce of diabe meme 5.7-6 .4% Consi stent with incre ased risk for diabe meme (pred iabet es) >OR=6 .5% Consi stent with diabe meme REFER ENCE: Diabe meme Care 2015, 39(Darden ppl.1 ):s13 -s22 Not Available [facility] (Lab) [address] [place], [address], 04/29/2024 22:48:53 12/07/19 24 12/07/2023 CT, brain , w/o contr ast No observ ation record ed. [place] [address], [place], [address], 12/08/2023 19:07:21 12/07/19 24 12/07/2023 XR, chest , 2 view No observ ation record ed. [address], [place], [address], 12/08/2023 19:07:56 12/07/19 24 12/07/2023 CT, abdom en + pelvi s, w/o contr ast No observ ation record ed. [address], [place], [address], 12/08/2023 19:08:40 12/21/19 24 12/21/2023 US, echoc ardio gram No observ ation record ed. [address] [facility] [address], [place], [address], 12/21/2023 16:31:47 01/27/20 24 01/27/2024 CT, brain , w/o contr ast No observ ation record ed. [address] [address], [place], [address], 01/27/2024 14:54:35 02/01/20 24 02/01/2024 CT, chest + abdom en, w/ contr ast No observ ation record ed. [email or web address] [address], [place], [address], 02/12/2024 12:39:00 02/25/20 24 02/25/2024 CT, abdom en + pelvi s, w/o contr ast No observ ation record ed. [address], [place], [address], 02/26/2024 08:23:12 02/26/20 24 02/26/2024 XR, chest , 2 view No observ ation record ed. [email or web address] [id number] [facility] [address] [facility], [place], [address], 02/27/2024 06:50:13 03/01/20 24 03/01/2024 XR, chest No observ ation record ed. [email or web address] [address], [place], [address], 03/04/2024 11:13:12 03/01/20 24 03/01/2024 CT, abdom en + pelvi s, w/ contr ast No observ ation record ed. [place] [id number] [facility] [address], [place], [address], 03/04/2024 11:13:43 03/17/20 24 02/26/2024 XR, chest No observ ation record ed. [email or web address] [id number] Not Available 2023 14:33:37 04/08/20 24 04/08/2024 XR, chest , 2 view No observ ation record ed. [address], [place], [address], 04/08/2024 17:21:43 04/24/20 24 XR, shoul criselda, 2 or more view [facility] [address] [id number] Patien t Name: ZOE DIA ion #: [id number] Sex: F : 1949 4 Dictat ed By: Ela Malone Attend ing Physic prateek: MIN DUFF CE Orderi Physic prateek: MIN DUFF CE Exam Date: 2023 10:56 AM Exam Name: XR SHOULD ER RT 2V+ Admitt ing Diagno sis(es ): CLINIC AL INDICA TION: neck pain TECHNI QUE: 4 radiog raphic views of the right should er were obtain ed. Compar donnell: None FINDIN GS/IMP RESSIO N: There is no eviden ce of acute fractu re or disloc ation. The visual ized joint space is well mainta ined. The alignm ent is anatom ical. There is no radiop aque foreig n body. Electr onical ly Signed by: Ela Malone at 2023 11:27: 05 AM Page [address] (Imaging) [address] [place], [address], 04/24/2024 15:21:23 04/24/20 24 XR, cervi milli spine , 4 or 5 view [facility] [address] [facility] [place] [address] Patien t Name: ZOE DIA Access ion #: [id number] Sex: F : 1949 4 Dictat ed By: Ela Malone Attend ing Physic prateek: MIN DUFF CE Orderi Physic prateek: MIN DUFF CE Exam Date: 2023 10:46 AM Exam Name: XR C SPINE 4-5V Admitt ing Diagno sis(es ): ACCESS ION #: [id number] INDICA TION: neck pain COMPAR DONNELL: None TECHNI QUE: 5 views of the cervic al spine were obtain ed. FINDIN GS: Revers al of the cervic al spine curvat ure. The preden jamison space is normal . Modera te multil evel degene rative disc diseas e in the cervic al spine. . No acute fractu re, verteb ral compre ssion deform ity or aggres sive osseou s lesion s. The imaged lung apices are unrema rkable . IMPRES EROS: No acute fractu re. Modera te multil evel degene rative disc diseas e in the cervic al spine. Electr onical ly Signed by: Ela Malone at 2023 11:29: 54 AM Page [address] (Imaging) [address] [place], [address], 04/24/2024 15:21:23 06/22/20 24 06/22/2024 XR, knee No observ ation record ed. [address], [place], [address], 06/23/2024 06:55:03 07/13/20 24 07/12/2024 CT, chest , w/o contr ast No observ ation record ed. [address], [place], [address], 07/14/2024 07:01:22 07/13/20 24 07/13/2024 CT, abdom en + pelvi s, w/o contr ast No observ ation record ed. [address], [place], [address], 07/14/2024 07:01:56 07/15/20 24 07/15/2024 CT, brain , w/o contr ast No observ ation record ed. [address], [place], [address], 07/15/2024 12:04:24 Result Notes None recorded. Problems Name Problem SNOMED Code Status Onset Date Resolution Date Notes Provider Name and Address Organization Details Recorded Time Edema of lower extremity 787512797 Active 2019 Not Available [facility] 3 12:54:28 Deep venous thrombosis 875381172 Active 2019 Not Available [facility] 3 12:54:28 Chronic back pain 045106024 Active 2021 Not Available [facility] 3 12:54:28 Chronic obstructiv e pulmonary disease 69113067 Active 2018 Not Available [facility] 3 12:54:28 Family history of colorectal cancer 1986493783986 Active 2018 Not Available [facility] 3 12:54:28 Chronic peripheral venous hypertensi on with lower extremity complicati on 1167034605431 05 Active 2021 Not Available [facility] 3 12:54:28 Gastroesop hageal reflux disease 167977029 Active 2018 Not Available [facility] 3 12:54:28 Gastroente ritis 31074711 Active 2022 Not Available [facility] 3 12:54:28 Non-small cell lung cancer 603073704 Active 2018 Not Available [facility] 3 12:54:28 Dry skin dermatitis 042722824 Active 2021 Not Available [facility] 3 12:54:28 Pure hyperchole sterolemia 233825887 Active 2018 Not Available [facility] 3 12:54:28 Recurrent falls 734778450 Active 2021 Not Available [facility] 3 12:54:28 Type 2 diabetes mellitus without complicati on 054794421 Active 2018 Not Available [facility] 3 12:54:29 Eczema 00370975 Active 2021 Not Available [facility] 3 12:54:29 Acute urinary tract infection 150587077 Active 2021 Not Available [facility] 3 12:54:29 Foot pain 43408073 Active 2019 Not Available [facility] 3 12:54:29 Essential hypertensi on 53048519 Active 2018 Not Available [facility] 3 12:54:29 Long-term current use of anticoagul ant 289011824 Active 2019 Not Available [facility] 3 12:54:29 Varicose veins of lower extremity 46129620 Active 2021 Not Available [facility] 3 12:54:29 Diabetes mellitus 35007297 Active Not Available [facility] 3 12:54:29 Gout 37390477 Active 2019 Not Available [facility] 3 12:54:29 Pain of knee region 7392051887 Active 2022 SILVANA Hahn, [place] [facility] 3 12:58:02 Pain of right knee joint 6017711404894 00 Active 2022 [place] [facility] [place] [facility] 3 11:14:07 Hemorrhoid s 34390375 Active 2023 SILVANA Hahn, [facility] 4 16:54:18 Diarrhea 77855623 Active 2023 Ale Naranjo CMA null, [facility] 4 16:54:58 Pneumonia 689713533 Active 2023 Cristiano Duff MD [address], [place], [address] , [facility] 4 14:32:15 Cough 34944474 Active 2023 Ale Naranjo CMA null, [facility] 4 14:53:15 Acute bronchitis 06203719 Active 2023 Cristiano Duff MD [address], [address], [place], [address] , [facility] 4 16:57:43 Neck pain 08885793 Active 2023 Keren turner, [facility] 4 17:09:09 Pain of right shoulder joint 6174610634968 9100 Active 2023 Keren turner, [facility] 4 17:09:22 Dysuria 26464409 Active 2023 Ale Naranjo CMA null, [facility] 4 11:01:40 Problem Notes None recorded. Procedures Surgical History Date Name Laterality Status Provider Name and Address Organization Details Recorded Time 04/20/20 23 Medicare Wellness CPT Code, subsequent completed Cheyanne Matute RN [facility] 04/20/2023 14:59:09 03/24/20 21 Date of Last Colonoscopy completed Not Available [facility] 01/03/2023 12:52:29 Imaging Results Imaging Date Name Status LastModified by Organization Details LastModified Time 12/07/2023 CT, brain, w/o contrast completed [address], [place], [address], 12/08/2023 19:07:21 12/07/2023 XR, chest, [address] [facility] [place], [address], 12/08/2023 19:07:56 12/07/2023 CT, abdomen + pelvis, w/o contrast completed [address] [address], [place], [address], 12/08/2023 19:08:40 12/21/2023 US, echocardiogram completed [address] [facility] [address], [place], [address], 12/21/2023 16:31:47 01/27/2024 CT, brain, w/o contrast completed [address] [address], [place], [address], 01/27/2024 14:54:35 02/01/2024 CT, chest + abdomen, w/ contrast completed [address], [address], 02/12/2024 12:39:00 02/25/2024 CT, abdomen + pelvis, w/o contrast completed [address] [address], [place], [address], 02/26/2024 08:23:12 02/26/2024 XR, chest, 2 view completed [email or web address] [id number] [facility] [address] [place], [address], 02/27/2024 06:50:13 03/01/2024 XR, chest completed [address], [address], 03/04/2024 11:13:12 03/01/2024 CT, abdomen + pelvis, w/ contrast completed [address], [address], 03/04/2024 11:13:43 02/26/2024 XR, chest completed [place] [id number] Information no t available 03/19/2024 14:33:37 04/08/2024 XR, chest, 2 view completed [address], [address], 04/08/2024 17:21:43 04/24/2024 XR, shoulder, 2 or more view completed [address] (Imaging) [address] [place], [address], 04/24/2024 15:21:23 04/24/2024 XR, cervical spine, 4 or 5 view completed [address] (Imaging) [address] [place], [address], 04/24/2024 15:21:23 06/22/2024 XR, knee completed [address], [address], 06/23/2024 06:55:03 07/12/2024 CT, chest, w/o contrast completed [address], [address], 07/14/2024 07:01:22 07/13/2024 CT, abdomen + pelvis, w/o contrast completed [address], [address], 07/14/2024 07:01:56 07/15/2024 CT, brain, w/o contrast completed [address], [address], 07/15/2024 12:04:24 Procedure Notes None recorded. Medical Equipment None Reported. Allergies Allergen ID Allergen Name Allergen Category Reaction Reaction Severity Criticality Documentation Date Start Date Code Code System Note Provider Name and Address Organization Details Recorded Time 57597 Voltaren medicatio n other Not available Not available 01/03/2023 6 RxNorm Not Available [facility] 12:59:23 25338 Product containin g penicilli n (product) medicatio n rash Not available Not available 01/03/2023 58451 8001 SNOMED Not Available [facility] 12:59:24 Medications Name Sig Start Date Stop Date Status Note LastModified by Organization Details LastModified Time cyclobenz aprine 10 mg tablet TAKE 1 TABLET BY MOUTH THREE TIMES DAILY NEEDED 02/11 completed Not Available Not Available Not Available amoxicill in 500 mg capsule 01/28 completed Not Available Not Available Not Available furosemid e 40 mg tablet TAKE 1 TABLET BY MOUTH EVERY DAY active Not Available Not Available No t Available clotrimaz ole 10 mg gerardo DIS 1 CALIXTO PO FID active Not Available Not Available No t Available metformin 500 mg tablet TAKE 1 TABLET BY MOUTH TWICE DAILY active Not Available Not Available No t Available nystatin 100,000 unit/mL oral suspensio n active Not Available Not Available Not Available carvedilo l 6.25 mg tablet TAKE 1 TABLET BY MOUTH TWICE DAILY active Not Available Not Available No t Available prednison e 10 mg tablet 01/28 completed Not Available Not Available Not Available torsemide 20 mg tablet TAKE 1 TABLET BY MOUTH EVERY DAY NEEDED FOR LEG SWELLING 02/11 completed Not Available Not Available Not Available clindamyc in HCl 300 mg capsule TAKE 2 CAPSULES 1 HOUR BEFORE DENTAL APPOINTM ENT 04/15 completed Not Available Not Available Not Available albuterol sulfate 2.5 mg/3 mL (0.083 %) solution for nebulizat ion Inhale 3 mL every 6 hours by nebuliza tion route as needed. active Not Available Not Available No t Available ammonium lactate 12 % lotion APPLY TO FEET DAILY NEEDED FOR DRY SKIN 04/14 completed Not Available Not Available Not Available desoximet asone 0.05 % topical cream 01/28 completed Not Available Not Available Not Available trazodone 50 mg tablet Take 1 tablet every day by oral route at bedtime. 01/19 completed Not Available Not Available Not Available atorvasta tin 10 mg tablet TAKE 1 TABLET BY MOUTH DAILY active Not Available Not Available No t Available lisinopri l 20 mg-hydroc hlorothia zide 12.5 mg tablet TAKE 1 TABLET BY MOUTH EVERY DAY active Not Available Not Available No t Available azithromy navarro 250 mg tablet Take 2 TABLET EVERY DAY by oral route for 1 day then one daily active Not Available Not Available No t Available pravastat in 40 mg tablet TAKE 1 TABLET BY MOUTH EVERY DAY 12/18 completed pt taking atorvast atin Not Available Not Available Not Available benzonata te 200 mg capsule TAKE 1 CAPSULE BY MOUTH THREE TIMES DAILY active Not Available Not Available No t Available valacyclo vir 1 gram tablet 01/28 completed Not Available Not Available Not Available ranitidin e 300 mg tablet TK 1 T PO QHS 11/27 completed Not Available Not Available Not Available hydrocodo ne 5 mg-acetam inophen 325 mg tablet TAKE 1 TABLET BY MOUTH EVERY 6 HOURS NEEDED FOR PAIN OR ACUTE PAIN 01/19 completed Not Available Not Available Not Available sucralfat e 100 mg/mL oral suspensio n TAKE 10 ML BY MOUTH FOUR TIMES DAILY 10/20 completed Not Available Not Available Not Available sucralfat e 1 gram tablet 01/28 completed Not Available Not Available Not Available ondansetr on HCl 4 mg tablet 01/28 completed Not Available Not Available Not Available prednison e 20 mg tablet TAKE 2 TABLETS BY MOUTH DAILY 10/20 completed Not Available Not Available Not Available prednison e 5 mg tablet TAKE 1 TABLET BY MOUTH TWICE DAILY 03/03 completed Not Available Not Available Not Available Tylenol Arthritis Pain 650 mg tablet,ex tended release Take 2 tablets every 8 hours by oral route. 04/14 completed Not Available Not Available Not Available warfarin 2.5 mg tablet 01/28 completed Not Available Not Available Not Available penicilli n V potassium 500 mg tablet 01/28 completed Not Available Not Available Not Available potassium chloride ER 10 mEq tablet,ex tended release 01/28 completed Not Available Not Available Not Available allopurin ol 100 mg tablet active Not Available Not Available Not Available sulfameth oxazole 800 mg-trimet hoprim 160 mg tablet TAKE 1 TABLET BY MOUTH EVERY 12 HOURS 03/03 completed Not Available Not Available Not Available omeprazol e 40 mg capsule,d elayed release TAKE 1 CAPSULE BY MOUTH EVERY DAY active Not Available Not Available No t Available aspirin 81 mg tablet,de layed release Take 1 tablet every day by oral route. 03/25 completed Not Available Not Available Not Available tramadol 50 mg tablet TAKE 1 TABLET BY MOUTH EVERY 6 HOURS 03/03 completed Not Available Not Available Not Available triamcino lone acetonide 0.1 % topical cream APPLY TO THE AFFECTED AREA TOPICALL Y EVERY 12 HOURS 03/03 completed Not Available Not Available Not Available acyclovir 800 mg tablet 01/28 completed Not Available Not Available Not Available lidocaine -prilocai ne 2.5 %-2.5 % topical cream 11/27 completed Not Available Not Available Not Available Macrobid 100 mg capsule Take 1 capsule every 12 hours by oral route. 2023 active Not Available Not Available Not Avai lable oxycodone -acetamin ophen 5 mg-325 mg tablet 01/28 completed Not Available Not Available Not Available magnesium oxide 400 mg (241.3 mg magnesium ) tablet TK 1 T PO BID 03/03 completed Not Available Not Available Not Available triamcino lone acetonide 0.025 % topical cream APPLY A THIN LAYER TO THE AFFECTED AREA(S) BY TOPICAL ROUTE 2 TIMES PER DAY 03/03 completed Not Available Not Available Not Available baclofen 10 mg tablet TAKE 1 TABLET BY MOUTH THREE TIMES A DAY FOR HICCUPS. active Not Available Not Available No t Available glipizide ER 2.5 mg tablet, extended release 24 hr 01/28 completed Not Available Not Available Not Available hydrocodo ne 7.5 mg-acetam inophen 325 mg tablet 01/28 completed Not Available Not Available Not Available Lasix 20 mg tablet Take 1 tablet every day by oral route. 10/20 completed Not Available Not Available Not Available cephalexi n 500 mg capsule TAKE 1 CAPSULE BY MOUTH EVERY 6 HOURS FOR 7 DAYS 04/15 completed Not Available Not Available Not Available pantopraz ole 40 mg tablet,de layed release 01/28 completed Not Available Not Available Not Available Cipro 500 mg tablet Take 1 tablet every 12 hours by oral route. 2023 active Not Available Not Available Not Avai lable tobramyci n 0.3 % eye drops 01/28 completed Not Available Not Available Not Available dexametha sone 4 mg tablet 01/28 completed Not Available Not Available Not Available clotrimaz ole-betam ethasone 1 %-0.05 % topical cream APPLY TO GROIN RASH TWICE DAILY NEEDED. 03/03 completed Not Available Not Available Not Available prednison e 50 mg tablet TAKE 1 TABLET BY MOUTH DAILY 10/20 completed Not Available Not Available Not Available warfarin 2 mg tablet 01/28 completed Not Available Not Available Not Available fluoromet holone 0.1 % eye drops,naseem pension 01/28 completed Not Available Not Available Not Available promethaz ine 25 mg tablet TK 1 T PO Q 4 TO 6 HOURS PRN FOR NAUSEA 04/08 completed Not Available Not Available Not Available metronida zole 0.75 % topical cream 01/28 completed Not Available Not Available Not Available gabapenti n 300 mg capsule 01/28 completed Not Available Not Available Not Available verapamil ER (SR) 240 mg tablet,ex tended release 01/28 completed Not Available Not Available Not Available monteluka st 10 mg tablet Take 1 tablet every day by oral route. active Not Available Not Available No t Available allopurin ol 300 mg tablet TAKE 1 TABLET BY MOUTH EVERY DAY active Not Available Not Available No t Available gabapenti n 100 mg capsule 01/28 completed Not Available Not Available Not Available metoprolo l succinate ER 25 mg tablet,ex tended release 24 hr as needed per blood pressure readings 04/14 completed Not Available Not Available Not Available ergocalci ferol (vitamin D2) 1,250 mcg (50,000 unit) capsule TK 1 C PO Q WK active Not Available Not Available No t Available warfarin 1 mg tablet 01/28 completed Not Available Not Available Not Available cefuroxim e axetil 500 mg tablet 01/28 completed Not Available Not Available Not Available levofloxa navarro 500 mg tablet 04/08 completed Not Available Not Available Not Available levofloxa navarro 750 mg tablet TAKE 1 TABLET BY MOUTH DAILY 10/20 completed Not Available Not Available Not Available zolpidem 10 mg tablet 01/28 completed Not Available Not Available Not Available methylpre dnisolone 4 mg tablets in a dose pack 01/28 completed Not Available Not Available Not Available colchicin e 0.6 mg tablet Take 2 tablets po now, then 1 tablet 1 hour later 04/08 completed Not Available Not Available Not Available lisinopri l 40 mg tablet TAKE 1 TABLET BY MOUTH DAILY active Not Available Not Available No t Available cefdinir 300 mg capsule TAKE 1 CAPSULE BY MOUTH EVERY 12 HOURS 02/11 completed Not Available Not Available Not Available fluticaso ne propionat e 50 mcg/actua tion nasal spray,naseem pension 01/28 completed Not Available Not Available Not Available doxycycli ne hyclate 100 mg tablet TAKE 1 TABLET BY MOUTH EVERY 12 HOURS 02/11 completed Not Available Not Available Not Available spironola ctone 50 mg tablet 01/28 completed Not Available Not Available Not Available metoclopr amide 10 mg tablet 01/28 completed Not Available Not Available Not Available Ventolin HFA 90 mcg/actua tion aerosol inhaler INHALE 2 PUFFS BY MOUTH EVERY 6 HOURS NEEDED FOR WHEEZING OR SHORTNES S OF BREATH active Not Available Not Available No t Available oxycodone 5 mg tablet 01/28 completed Not Available Not Available Not Available Cough Syrup DM 10 mg-100 mg/5 mL TK 10 ML PO Q 4 H PRF COUGH 04/08 completed Not Available Not Available Not Available enoxapari n 80 mg/0.8 mL subcutane ous syringe 01/28 completed Not Available Not Available Not Available Pneumovax -23 25 mcg/0.5 mL injection syringe ADM 0.5ML IM UTD 01/28 completed Not Available Not Available Not Available memantine 5 mg tablet 08/12 completed Not Available Not Available Not Available metoprolo l tartrate 25 mg tablet Take 1 tablet every day by oral route. 04/08 completed Not Available Not Available Not Available hydrocodo ne 7.5 mg-acetam inophen 325 mg/15 mL oral solution 01/28 completed Not Available Not Available Not Available GlycoLax 17 gram oral powder packet Take 1 packet every day by oral route. 03/03 completed Started per 11/21/22 [facility] discharg e summary. Not Available Not Available Not Available vitamin B complex 2 DAILY 03/25 completed Not Available Not Available Not Available Calcium 600 take one tablet daily 04/24 completed Not Available Not Available Not Available Tylenol NEEDED 03/25 completed Not Available Not Available Not Available Calcium 600 + D(3) take one tablet daily 04/24 completed Not Available Not Available Not Available Preparati on H Maximum Strength 0.25 %-1 % rectal cream administ er to rectum as needed 03/03 completed Not Available Not Available Not Available Imodium Multi-Sym ptom Relief 2 mg-125 mg tablet take as directed on package as needed 03/03 completed Not Available Not Available Not Available Prevnar 13 (PF) 0.5 mL intramusc ular syringe ADM 0.5ML IM UTD 01/28 completed Not Available Not Available Not Available Xarelto 10 mg tablet 01/28 completed Not Available Not Available Not Available lidocaine 0.5 %-me.sali cyl 20 %-capsai 0.035 %-menth 5 % topical patch 2 pathces every day 12/08 completed Not Available Not Available Not Available apixaban 5 mg tablet Take 1 tablet twice a day by oral route. active Not Available Not Available No t Available Anoro Ellipta 62.5 mcg-25 mcg/actua tion powder for inhalatio n INL 1 PUFF PO AT THE SAME TIME QD 11/27 completed Not Available Not Available Not Available Jardiance 10 mg tablet TAKE 1 TABLET BY MOUTH EVERY DAY active Not Available Not Available No t Available Fluzone High-Dose 9327-9326 (PF) 180 mcg/0.5 mL intramusc ular syringe ADM 0.5ML IM UTD 01/28 completed Not Available Not Available Not Available Trelegy Ellipta 100 mcg-62.5 mcg-25 mcg powder for inhalatio n INHALE 1 PUFF BY MOUTH EVERY DAY 03/11 completed Not Available Not Available Not Available Fluzone High-Dose (PF) 180 mcg/0.5 mL intramusc ular syringe ADM 0.5ML IM UTD 01/28 completed Not Available Not Available Not Available Fluad 2018- 65yr up(PF)45 mcg(15 mcgx3)/0. 5 mL intramusc ular syringe ADM 0.5ML IM UTD 04/14 completed Not Available Not Available Not Available Vitals Date Recorded Body height Body mass index (BMI) Body weight Heart rate Body temperature Oxygen saturation Oxygen saturation in Arterial blood by Pulse oximetry Systolic blood pressure Diastolic blood pressure Provider Name and Address Organization Details Last Updated DateTime 4 165.1 cm 33.8 kg/m2 90956.2 5 g 91 /min 97.8 [degF] 97 % 97 % 136 mm[Hg] 88 mm[Hg] VERA Diamond [facility] [employer] [facility] 4 15:08:57 Date Recorded Body height Body mass index (BMI) Body weight Heart rate Oxygen saturation Oxygen saturation in Arterial blood by Pulse oximetry Systolic blood pressure Diastolic blood pressure Provider Name and Address Organization Details Last Updated DateTime 4 165.1 cm 34.3 kg/m2 64626.0 3 g 55 /min 97 % 97 % 106 mm[Hg] 72 mm[Hg] Ale Naranjo CMA [facility] [employer] [facility] 4 14:28:37 Date Recorded Body height Body mass index (BMI) Body weight Heart rate Body temperature Oxygen saturation Oxygen saturation in Arterial blood by Pulse oximetry Systolic blood pressure Diastolic blood pressure Provider Name and Address Organization Details Last Updated DateTime 4 165.1 cm 35.1 kg/m2 73474.9 9 g 93 /min 97.7 [degF] 95 % 95 % 122 mm[Hg] 70 mm[Hg] VERA Diamond [place] [employer] [facility] [employer] [facility] 4 14:44:29 Date Recorded Heart rate Body temperature Oxygen saturation Oxygen saturation in Arterial blood by Pulse oximetry Systolic blood pressure Diastolic blood pressure Provider Name and Address Organization Details Last Updated DateTime 4 88 /min 97 [degF] 97 % 97 % 124 mm[Hg] 64 mm[Hg] Dorothy Groves [place] [employer] [facility] [employer] [facility] 4 16:50:52 Date Recorded Body height Heart rate Body temperature Oxygen saturation Oxygen saturation in Arterial blood by Pulse oximetry Systolic blood pressure Diastolic blood pressure Provider Name and Address Organization Details Last Updated DateTime 4 165.1 cm 96 /min 98 [degF] 90 % 90 % 118 mm[Hg] 70 mm[Hg] VERA Diamond [facility] [employer] [facility] 4 14:23:58 Social History Question Answer Notes LastModified by Organizat ion Details LastModified Time Tobacco Smoking Status Former [facility]oker Not Available [facility]23 12:52:17 Do You Have An Advance Directive? Yes [id number] Information not available 01/03/2023 What Is Your Level Of Alcohol Consumption? None MIGRATION.[id number] Information not available 01/03/2023 Are You Blind Or Do You Have Difficulty Seeing? No MIGRATION.[id number] 4917 Information not available 01/03/2023 Are You Deaf Or Do You Have Serious Difficulty Hearing? No MIGRATION.[id number] Information not available 01/03/2023 What Type Of Diet Are You Following? REGULAR [id number].[id number] Information not available 01/03/2023 Do You Or Have You Ever Used E-cigarettes Or Vape? Never Used Electronic Cigarettes MIGRATION.[id number] Information not available 01/03/2023 Have There Been Any Changes To Your Family Or Social Situation? Yes Moved Into Asst Living MIGRATION.[id number] Information not available 01/03/2023 What Is The Fluoride Status Of Your Home? Unknown MIGRATION.[id number] Information not available 01/03/2023 Are There Any Guns Present In Your Home? No MIGRATION.[id number] 0184 Information not available 01/03/2023 Do You Use Insect Repellent Routinely? No MIGRATION.[id number] Information not available 01/03/2023 Where Do You Live? Apartment MIGRATION.[id number] 5014 Information not available 01/03/2023 Guns Present In The Home? No Information not available 04/20/2023 Are You Able To Care For Yourself? No Information not available 04/20/2023 Are You Blind Or Do Yo Have Difficulty Seeing? No [email or web address] Information not available 04/20/2023 Are You Deaf Or Do You Have Serious Difficulty Hearing? No [email or web address] Information not available 04/20/2023 Live Alone Of With Others? Alone [email or web address] Information not available 04/20/2023 What Was The Date Of Your Most Recent Tobacco Screening? 04/20/2023 [email or web address] Information not available 04/20/2023 Do You Have Any Pets? No MIGRATION.066327 0257 Information not available 01/03/2023 Do You Use Your Seat Belt Or Car Seat Routinely? Yes MIGRATION.[id number] 7425 Information not available 01/03/2023 Do You Have Smoke And Carbon Monoxide Detectors In Your Home? Yes MIGRATION.[id number] 1453 Information not available 01/03/2023 At What Age Did You Start Smoking Tobacco? 16 MIGRATION.[id number] Information not available 01/03/2023 Are You Passively Exposed To Smoke? No MIGRATION.[id number] 0374 Information not available 01/03/2023 Do You Or Have You Ever Used Smokeless Tobacco? Never Used Smokeless Tobacco MIGRATION.[id number] 4924 Information not available 01/03/2023 Are There Any Smokers In Your House? No MIGRATION.354239 0681 Information not available 01/03/2023 How Much Tobacco Do You Smoke? 1 PPD MIGRATION.[id number] 7680 Information not available 01/03/2023 Do You Use Sunscreen Routinely? No MIGRATION.[id number] 3931 Information not available 01/03/2023 Have You Recently Traveled Abroad? No MIGRATION.488172 3802 Information not available 01/03/2023 Do You Have Any Dietary Restrictions? No MIGRATION.267163 2976 Information not available 01/03/2023 Sex: Unknown Functional Status Question Answer Note LastModified by [employer] ion Details LastModified Time Do you have difficulty walking or climbing stairs? Yes uses rollator or walker [email or web address] Information not available 04/20/2023 Do you have transportation difficulties? No MIGRATION.[id number] Information not available 01/03/2023 Are you able to walk? YESASSIST MIGRATION.[id number] Information not available 01/03/2023 Do you have difficulty doing errands alone? Yes MIGRATION.[id number] 17513 Information not available 01/03/2023 Are you able to care for yourself? No MIGRATION.[id number] 34804 Information not available 01/03/2023 Do you have difficulty dressing or bathing? No MIGRATION.56219 99223 Information not available 01/03/2023 What is your exercise level? None MIGRATION.[id number] Information not available 01/03/2023 Mental Status Question Answer Note LastModified by [employer] Details LastModified Time Do you have difficulty concentrating, remembering or making decisions? No [id number] Information not available 01/03/2023 Family History Nothing Reported Notes:Mother 97 hx of r ectal cancer in 60's Father 65 from PAD and alcoholism Two brothers one killed in MVA and other COVID, HTN and DM One sister living with DM Medical History Condition Response NERVE DISEASE Y BLINDNESS N RHEUMATIC FEVER N KIDNEY STONES N BLADDER PROBLEMS N MRSA N OTHER # 1 N POLIO N LUNG DISEASE/DISORDER N HISTORY OF DRUG ABUSE N RADIATION / CHEMOTHERAPY N COPD Y Other # 2 N BLOOD DISEASES N EAR OR HEARING PROBLEMS N MUMPS N SHINGLES N BOWEL PROBLEMS N DEPRESSION (INCLUDING POST ) N STROKE/TIA N ULCERS N BENIGN PROSTATIC HYPERPLASIA N MEASLES N HYPOTENSION N MYOCARDIAL INFARCTION N OBESITY N GERD/NAUSEA N ANEURYSM N URINARY/BLADDER/KIDNEY PROBLEMS N CORONARY ARTERY DISEASE (CAD) N ADDICTION CONCERNS N ENDOMETRIOSIS N Impotence N USE OF BLOOD THINNERS N SKIN PROBLEMS N GASTROINTESTINAL DISORDER N PERIPHERAL VASCULAR DISEASE N MUSCLE,JOINT OR BONE PROBLEMS N GASTROINTESTINAL BLEEDING N BLOOD CLOTS N ASTHMA N CATARACTS N ERECTILE DYSFUNCTION N VARICOSITIES N GI PROBLEMS N Low Testosterone N INFERTILITY N AIDS/HIV N CHEMOTHERAPY / RADIATION N LIVER DISEASE N MALE HYPOGONADISM N HYPERTENSION Y Deficiency N TOURETTE'S N ANXIETY DISORDER N BLOOD TRANSFUSION N ANEMIA/BLOOD DISORDER N CHRONIC EAR INFECTIONS N BRONCHITIS N TUBERCULOSIS N GLAUCOMA N FOOT PROBLEM N DIVERTICULITIS N CHICKENPOX N SLEEP APNEA N INFECTIOUS DISEASE N HEART ARRHYTHMIA N PROSTATE N INSOMNIA N HIGH CHOLESTEROL / HYPERLIPIDEMIA Y HYPERTHYROIDISM N EYE PROBLEMS N EDEMA N CHRONIC PAIN SYNDROME N HYPOTHYROIDISM N CAROTID BLOCKAGE N CONSTIPATION N BACK / NECK PROBLEMS N HAVE YOU BEEN HOSPITALIZED OR SEEN IN [facility] IN THE PAST YEAR ? N ATHEROSCLEROSIS N BREAST PROBLEMS N DIALYSIS N ECZEMA N OSTEOPOROSIS N ARTHRITIS N NO SIGNIFICANT PAST MEDICAL HISTORY N APPENDICITIS N DIABETES, TYPE Y BAD TEETH N ENT N HEARTBURN / REFLUX Y AUTISM SPECTRUM DISORDER (ASD) N HEPATITIS / LIVER DISEASE N GOUT N SLEEP DISORDER N ALZHEIMER'S DISEASE N Brain Problems N HERPES N DEMENTIA N HEADACHES/MIGRAINES N SEIZURES/EPILEPSY N VASCULAR DISEASE N PACEMAKER N Blood Disorder N DIZZINESS N HEART DISEASE/HEART PROBLEMS N KIDNEY DISEASE N MULTIPLE SCLEROSIS N CARDIAC ARRHYTHMIA N CANCER: SPECIFY N ATRIAL FIBRILLATION N Gall Stones N PULMONARY EMBOLISM N AUTOIMMUNE DISEASE N Gynecological History Statement/Question Response Date of Last Mammogram 08/15/2021 Date of Last Colonoscopy 03/24/2021 Obstetrics History GPAL:G 0 P 0 0 0 0 Immunizations Vaccine Type Date Status Note Provider Nam e and Address Organization Details Recorded Time influenza, unspecified formulation 2 completed Not Available [facility] 01/03/2023 12:59:17 SARS-COV-2 (COVID-19) vaccine, UNSPECIFIED 1 completed Not Available [facility] 01/03/2023 12:59:17 SARS-COV-2 (COVID-19) vaccine, UNSPECIFIED 1 completed Not Available [facility] 01/03/2023 12:59:17 COVID-19, mRNA, LNP-S, PF, 100 mcg/0.5mL dose or 50 mcg/0.25mL dose 1 completed Not Available [facility] 01/03/2023 12:59:17 Influenza, high-dose, quadrivalent, PF 1 completed Not Available [facility] 01/03/2023 12:59:17 Past Encounters Encounter ID Performer Location Encounter Start Date Encounter Closed Date Diagnosis/Indication Diagnosis SNOMED-CT Code Diagnosis ICD10 Code Diagnosis Note [id number] [facility] [place] [facility] [address] , [place] [address] 04/08/2021 00:00:00 04/08/2021 12:31:38 [id number] [facility] [address] [place] [address] k[address], [place] [address] 08/12/2021 00:00:00 08/12/2021 12:40:38 [id number] [facility] [place] [address] [facility] [address] [place] [address] 12/12/2021 00:00:00 12/13/2021 14:40:36 [id number] [facility] [place] [address] [facility] [address] , [place] [address] 12/16/2021 00:00:00 12/16/2021 12:23:29 [id number] [facility] [place] [address] [facility] [address] [place] [address] 12/26/2021 00:00:00 12/26/2021 14:47:00 [id number] [facility] [place] [address] [facility] [address] , [place] [address] 04/14/2022 00:00:00 04/14/2022 12:27:01 [id number] [facility] [address] [facility], [facility] [address] [place] [address] 06/21/2022 00:00:00 06/21/2022 16:53:33 [id number] [facility] [place] [address] [facility] [address] , [place] [address] 07/14/2022 00:00:00 07/14/2022 12:13:36 [id number] [facility] [place] [address] [facility] [address] [place] [address] 07/24/2022 00:00:00 07/24/2022 15:04:47 [id number] [facility] [place] [address] [facility] [address] , [place] [address] 10/20/2022 00:00:00 10/20/2022 16:30:13 [id number] [facility] [place] [address] [place] [address] [place] [address] 12/08/2022 00:00:00 12/08/2022 15:36:20 [id number] Cristiano Duff MD [facility] [place] [address] [place] [address] [place] [address] 01/19/2023 14:56:03 01/19/2023 15:44:03 Chronic obstructive pulmonary disease 00328690 J44.9 Essential hypertension 77584150 I10 Non-small cell lung cancer 170793136 C34.90 Pure hypercholesterolemia 109844091 E78.00 Type 2 michelle betes mellitus without complication 099019015 E11.9 [id number] Cristiano Duff MD [facility] [place] [address] [place] [address] [place] [address] 03/16/2023 14:43:53 03/16/2023 15:46:30 Essential hypertension 21001535 I10 Gastroesop hageal reflux disease 138567306 K21.9 Pure hypercholesterolemia 048219127 E78.00 Type 2 michelle betes mellitus without complication 144844085 E11.9 Chronic ob structive pulmonary disease 61057938 J44.9 [id number] Cristiano Duff MD [facility] [place] [address] [facility] [place] [address] 04/20/2023 14:36:10 04/20/2023 15:16:41 Adult health examination [id number] Z00.00 Screening for disorder 826133005 Z13.9 Chronic ob structive pulmonary disease 50179263 J44.9 Gastroesop hageal reflux disease 596442643 K21.9 Non-small cell lung cancer 588392958 C34.90 Pure hypercholesterolemia 797417318 E78.00 Type 2 michelle betes mellitus without complication 299152006 E11.9 [id number] Cristiano Duff MD [facility] Internal [facility] [place] [address] [facility] [place] [address] 07/20/2023 15:27:10 07/20/2023 16:04:21 Chronic obstructive pulmonary disease 33916765 J44.9 Gastroesop hageal reflux disease 169940679 K21.9 Non-small cell lung cancer 812435958 C34.90 Gout 54009035 M10.9 Pure hypercholesterolemia 637037754 E78.00 [id number] Cristiano Duff MD [facility] [place] [address] [facility] [place] [address] 12/18/2023 14:57:19 12/18/2023 15:45:27 Chronic obstructive pulmonary disease 31947398 J44.9 Essential hypertension 60858217 I10 Non-small cell lung cancer 098597041 C34.90 Pure hypercholesterolemia 514106969 E78.00 Type 2 michelle betes mellitus without complication 101247054 E11.9 [id number] Cristiano Duff MD [facility] [place] [address] [place] [address] 02/12/2024 14:20:01 02/12/2024 14:42:55 Pneumonia 382411955 J18.9 Chronic ob structive pulmonary disease 33093171 J44.9 Gastroesop hageal reflux disease 589819862 K21.9 Gout 30823900 M10.9 Non-small cell lung cancer 440414463 C34.90 [id number] Cristiano Duff MD [facility] [place] [address] [place] [address] [place] [address] 03/11/2024 14:24:23 03/11/2024 15:15:11 Chronic obstructive pulmonary disease 46625362 J44.9 Essential hypertension 23020557 I10 Pure hypercholesterolemia 820319388 E78.00 Type 2 michelle betes mellitus without complication 425516780 E11.9 [id number] Cristiano Duff MD [facility] Internal [facility] [place] [address] [place] [address] [place] [address] 04/15/2024 16:39:31 04/15/2024 17:11:22 Acute bronchitis 13650954 J20.9 J20.0 J20.1 J20.2 J20.3 J20.4 J20.5 J20.6 J20.7 J20.8 Chronic ob structive pulmonary disease 80255563 J44.9 Essential hypertension 00526396 I10 Gastroesop hageal reflux disease 777565660 K21.9 Non-small cell lung cancer 400096983 C34.90 [id number] Cristiano Duff MD [facility] [place] [address] [place] [address] [place] [address] 04/29/2024 14:15:18 04/29/2024 14:49:02 Chronic obstructive pulmonary disease 87832270 J44.9 Essential hypertension 46971833 I10 Non-small cell lung cancer 791528789 C34.90 Pure hypercholesterolemia 242834215 E78.00 Type 2 michelle betes mellitus without complication 213219188 E11.9 Gastroesop hageal reflux disease 710033391 K21.9 Health Concerns Section Related Observation LastModified by Organization Detai ls LastModified Time None Recorded Concern Status LastModified by Organization Details LastModified Time None Recorded Advance Directives Directive Y: Payers Encounter Date Sequence Insurance Name Policy Number Policy Barger Covered Member ID Barger Member ID Guarantor Name 12/18/2023 1 [place] Zoe A Dia [id number] Zoe A Dia 12/18/2023 2 [place] [id number] Zoe A Dia [id number] [place] A [place]ia 02/12/2024 1 [place] Zoe A Dia [id number] Zoe A Dia 03/11/2024 1 [place] A [place] [id number] [place] A Dia 04/15/2024 1 [place] A Dia [id number] [place] A Dia 04/29/2024 1 [place] Zoe A Dia [id number] Zoe A Dia Notes Date Note Type Note Provider Name and Address Organization Details Recorded Time 4 text/html Patient Name: Zoe DiaDate Of Service: Sunday ( 12.18.2023 ): 1950 Age: 73 Vital Signs:Blood Pressure: Sitting Rt. Arm 136/88Pulse: Sitting 91 /min and RegularRespiratory Rate: 12Height 65 in or 1.7 mWeight 203 lb or 92.1 kgBMI 33.8Temperature: 97.8 F or 36.6 CPulse Oximetry: 97 % at rest on no oxygen Chief Complaint: Addressed in HPI Problems or conditions discussed in the HPI were the only ones reviewed during the encounter.Only social and family history addressed in the HPI were reviewed during this encounter. Attendant(s): NoneConstitutional and Systemic Symptoms:none Medication Reconciliation: from medication list. Aqmnzjbsode74/14/2023: Venous doppler negative for DVT. CTA of chest abdomen and pelvis inadequate timing for PE but no saddle embolus. Small to moderate size hiatus hernia. Some atherosclerotic changes but no other significant findings. 02/18/2023 CT scans: CT scan of the brain demonstrated no new findings. Stable from previous examinations. CT scan of thoracic spine negative for any fracture or destructive lesions. CT of the abdomen pelvis negative with the exception of a possible non displaced fracture of the 10th right rib. 02/20/2023: Ultrasound of the pelvis showed no significant anomalies. 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 10-12-2023: CT brain without contrast showed age-related changes no acute process is noted10/12/2023: CT cervical spine negative for any fracture or malalignment. 12-07-2023: CT brain scan demonstrates age-related senescent changes.12/07/2023: CT scan of the abdomen and pelvis demonstrated a couple of indeterminate new pulmonary nodules at the anterior basilar right lower lobe. Largest measuring two by 0.7 cm. Small sliding hiatus hernia. Sigmoid diverticulosis. History of Present Illness #1. Essential Hypertension: Stage: Stage I Interval Neurological Complaints no headaches, dizziness, weakness, visual changes, ataxia, aphasia and apraxia. No shortness of breath, orthopnea or cardiovascular symptoms. No other symptoms related to end organ damage. Pressure has been under excellent control. Currently normal. No other end organ symptoms or findings. Therapy reviewed regarding management of hypertension and includes salt restriction and Carvedilol and Lisinopril. #2. COPD: Hx of Emphysema currently stable. There has been some decrease in exercise tolerance an shortness of breath. No change in sputum production, color or consistency. No fever, chills, weight loss or other constitutional symptoms. Gold Scale: Severe. MRC Scale: normal walking. Smoking: not currently smoking Current medications: Albuterol Sulfate Hfa, Singulair and Trelegy Ellipta Using nebulizer Treatments: No. Uses supplemental oxygen #3. Hx of non-small cell CA of the lung. Metastatic: none known There has been no change in breathing. No weight loss or other constitutional symptoms. No hemoptysis or other signs of progression or metastasis. #4. Type II Hypercholesterolaemia: Currently taking medication and tolerating well. No interval complaints of any muscle pain or arthralgia. No significant liver changes with medications. Last lipid panel: excellent control. Therapy reviewed regarding treatment of cholesterol management and include diet and Atorvastatin Calcium. #5. Type II Diabetes: Has had no polyuria polyphagia or polydipsia. Has had no hypoglycemic like responses. No new history of any numbness, tingling, weakness or visual problems. No nausea, anorexia or other constitutional symptoms. There has been no foot problems or non healing lesions. The last HAIC was DCCT HAIC: 5.7 Calculated MB mg%. Average blood sugars 125-150 mg%. Checking sugars : several times a week Medication Types Include: Metformin Secondary complications include none. Macro-vascular complications include none. Therapy reviewed regarding diabetic management and include Glucophage Compliance: good Renal Protection: ALBERTO inhibitors Lipid management: statins Urinary microalbumin: A1 . Ophthalmological: has seen eye doctor within the last year Active Medication ListSingulair 10 MG TABLET, FILM COATED One DailyCarvedilol 6.25 MG TABLET, FILM COATED One BidVitamin B-complex 2 DailyTrelegy Ellipta 0.1 MG/INH- 0.0625 MG /INH- 0.025 MG /INH (POWDER - INHALATION) One Puff DailyAtorvastatin Calcium 10 MG TABLET Once DailyBaclofen 10 MG (TABLET - ORAL) One Three Times A DayGlucophage 500 MG (TABLET - ORAL) One Twice A DayEliquis 5 MG (TABLET - ORAL) One Twice A DayAlbuterol Sulfate Hfa 2 Puffs Four Times A DayLisinopril 20 MG TABLET One DailyPrilosec 40 MG (CAPSULE, DELAYED REL PELLETS - ORAL) One DailyAllopurinol 300 MG (TABLET - ORAL) Qd Adverse Drug Reactions ReviewedPenicillin RashVoltaren Shortness Of Breath Vaccination and Lmhaolntksjb6162-74 Slvcgqngj3351-94 Covid Booster Frbppqk7635-70 Covid Ougzcgj5458-35 Nzftxiage0988-42 Prevnar 13 Gc Surgical Qsmclha1606-25 Lap Tsfmbdzkmwljtgi8611-06 Right Partial Upwt9260-20 RUL lobectomy CA Xldt6345-99 [facility] QNZ8073-92 Tonsillectomy Preventative Testing Confirmed by Our Dzjoyla1210/19/2023 LANABJXFQ19/16/2023 MAMMOGRAM /04/2023 ALBUMIN 4.0 G/DL N005/10/2023 MICRO ALBUMIN 0.6 MG/DL N005/10/2023 HAIC 5.7 % OF TOTAL HGB H1 MYLSLUHNLAPCC70/19/2021 CT DVQXWA8303/24/2021 COLONOSCOPY (5 YEARS) 6006/18/2019 UPPER ENDOSCOPY (ESOPHAGEAL STRICTURE) Social HistorySmoke one pack daily for over 40 yearsDrinks sociallyRetired banker Family HistoryMother 97 hx of rectal cancer in 60'sFather 65 from PAD and alcoholismTwo brothers one killed in MVA and other COVID, HTN and DMOne sister living with DMMenarche 12 Menopause 48 A0 Cristiano Duff MD [address] [facility], [facility] [address], [place], [address], [facility] [employer] 12/18/2023 15:36:48 4 text/html Patient Name: Zoe Carpenter Of Service: Sunday ( 02.12.2024 ): 1950 Age: 73 There has been approximately a 3 lb weight gain since 12/18/2023. This represents approximately a 1.5% change in weight. Weight change attributable to lifestyle changes. Vital Signs:Blood Pressure: Sitting Rt. Arm 106/72Pulse: Sitting 55 /min and RegularRespiratory Rate: 12Height 65 in or 1.7 mWeight 206 lb or 93.4 kgBMI 34.3Temperature: 97 F or 36.1 CPulse Oximetry: 97 % at rest on no oxygen Chief Complaint: Addressed in HPI Problems or conditions discussed in the HPI were the only ones reviewed during the encounter.Only social and family history addressed in the HPI were reviewed during this encounter. Attendant(s): NoneConstitutional and Systemic Symptoms:none Medication Reconciliation: from medication list. Txjkvpxizgu57/14/2023: Venous doppler negative for DVT. CTA of chest abdomen and pelvis inadequate timing for PE but no saddle embolus. Small to moderate size hiatus hernia. Some atherosclerotic changes but no other significant findings. 02/18/2023 CT scans: CT scan of the brain demonstrated no new findings. Stable from previous examinations. CT scan of thoracic spine negative for any fracture or destructive lesions. CT of the abdomen pelvis negative with the exception of a possible non displaced fracture of the 10th right rib. 02/20/2023: Ultrasound of the pelvis showed no significant anomalies. 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 10-12-2023: CT brain without contrast showed age-related changes no acute process is noted10/12/2023: CT cervical spine negative for any fracture or malalignment. 12-07-2023: CT brain scan demonstrates age-related senescent changes.12/07/2023: CT scan of the abdomen and pelvis demonstrated a couple of indeterminate new pulmonary nodules at the anterior basilar right lower lobe. Largest measuring two by 0.7 cm. Small sliding hiatus hernia. Sigmoid diverticulosis. History of Present Illness #1. Recently hospitalized with associated pneumonia and some chronic respiratory failure. Currently doing much better. Still has some very mild nonproductive cough. On examination lungs are some diminished breath sounds in the bases with a few expiratory wheezes. No other signs of consolidation etc. At this time.: #2. COPD: Hx of Emphysema currently stable. There has been no interval change in exercise tolerance an shortness of breath. No change in sputum production, color or consistency. No fever, chills, weight loss or other constitutional symptoms. Gold Scale: Moderate. MRC Scale: only strenuous activity. Smoking: not currently smoking Current medications: Albuterol Sulfate Hfa, Singulair and Trelegy Ellipta Using nebulizer Treatments: No. Uses supplemental oxygen #3. Hx of esophageal reflux currently stable. Hx of Complications: none The severity, duration and intensity of symptoms have improved. Frequency: most meals Treatment consists medications taken on a regular basis. Current therapy includes Prilosec. There has been no nausea, eructation, vomiting, hematemesis, dysphagia, velopharyngeal insufficiency and odynophagia. No change in he frequency or intensity of symptoms. Has had no melena. Has had no . Discussed use of H2 antagonists and the possibility of trying to reduce the frequency of the use of any PPI inhibitors and try H2 antagonists to see if symptoms can be controlled with lease intensive therapy since a number of complications are associated with chronic prolonged use of PPI inhibitors. #4. Gouty Arthritis: History of gouty arthritis. Has had no attacks since last examination. Currently taking allopurinol. No interval complaints of any new joint involvement. #5. Hx of non-small cell CA of the lung. Metastatic: none known There has been no change in breathing. No weight loss or other constitutional symptoms. No hemoptysis or other signs of progression or metastasis. Active Medication ListSingulair 10 MG TABLET, FILM COATED One DailyCarvedilol 6.25 MG TABLET, FILM COATED One BidVitamin B-complex 2 DailyTrelegy Ellipta 0.1 MG/INH- 0.0625 MG /INH- 0.025 MG /INH (POWDER - INHALATION) One Puff DailyAtorvastatin Calcium 10 MG TABLET Once DailyBaclofen 10 MG (TABLET - ORAL) One Three Times A DayGlucophage 500 MG (TABLET - ORAL) One Twice A DayEliquis 5 MG (TABLET - ORAL) One Twice A DayAlbuterol Sulfate Hfa 2 Puffs Four Times A DayLisinopril 20 MG TABLET One DailyPrilosec 40 MG (CAPSULE, DELAYED REL PELLETS - ORAL) One DailyAllopurinol 300 MG (TABLET - ORAL) Qd Adverse Drug Reactions ReviewedPenicillin RashVoltaren Shortness Of Breath Vaccination and Zzfbhpnjmurw2522-87 Hbtwbqvzu7572-93 Covid Booster Onvmyup8713-40 Covid Fheqkaj9231-67 Xfnmvsvoi4586-62 Prevnar 13 Gc Surgical Ltzncql0609-54 Lap Khzndnpfrwedtrp3331-65 Right Partial Ppkx1964-70 RUL lobectomy CA Ikqg5550-53 [facility] HES5647-26 Tonsillectomy Preventative Boxtswq4210/19/2023 BXCRHYWYW70/16/2023 MAMMOGRAM ALBUMIN 4.0 G/DL N005/10/2023 MICRO ALBUMIN 0.6 MG/DL N005/10/2023 HAIC 5.7 % OF TOTAL HGB H1 HZSXVPBIHFJAN60/19/2021 CT XZGRNK8503/24/2021 COLONOSCOPY (5 YEARS) UPPER ENDOSCOPY (ESOPHAGEAL STRICTURE) Social HistorySmoke one pack daily for 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 This represents approximately a 2.4% change in weight. Weight change attributable to lifestyle changes. Vital Signs:Blood Pressure: Sitting Rt. Arm 122/70Pulse: Sitting 93 /min and RegularRespiratory Rate: 12Height 65 in or 1.7 mWeight 211 lb or 95.7 kgBMI 35.1Temperature: 97.7 F or 36.5 CDCCT HAIC: 5.7 Calculated MB mg%Pulse Oximetry: 95 % at rest on no oxygen Chief Complaint: Addressed in HPI Problems or conditions discussed in the HPI were the only ones reviewed during the encounter.Only social and family history addressed in the HPI were reviewed during this encounter. Attendant(s): CaregiverConstitutional and Systemic Symptoms:none Medication Reconciliation: from medication list. Owbysoyiclx08/14/2023: Venous doppler negative for DVT. CTA of chest abdomen and pelvis inadequate timing for PE but no saddle embolus. Small to moderate size hiatus hernia. Some atherosclerotic changes but no other significant findings. 02/18/2023 CT scans: CT scan of the brain demonstrated no new findings. Stable from previous examinations. CT scan of thoracic spine negative for any fracture or destructive lesions. CT of the abdomen pelvis negative with the exception of a possible non displaced fracture of the 10th right rib. 02/20/2023: Ultrasound of the pelvis showed no significant anomalies. 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 10-12-2023: CT brain without contrast showed age-related changes no acute process is noted10/12/2023: CT cervical spine negative for any fracture or malalignment. 12-07-2023: CT brain scan demonstrates age-related senescent changes.12/07/2023: CT scan of the abdomen and pelvis demonstrated a couple of indeterminate new pulmonary nodules at the anterior basilar right lower lobe. Largest measuring two by 0.7 cm. Small sliding hiatus hernia. Sigmoid diverticulosis. History of Present Illness #1. COPD: Hx of Emphysema currently stable. There has been mild decrease in exercise tolerance an shortness of breath. No change in sputum production, color or consistency. No fever, chills, weight loss or other constitutional symptoms. Gold Scale: Severe. MRC Scale: normal walking. Smoking: not currently smoking Current medications: Albuterol Sulfate Hfa Using nebulizer Treatments: No. Uses does not use supplemental oxygen #2. Essential Hypertension: Stage: Stage I Interval Neurological Complaints no headaches, dizziness, weakness, visual changes, ataxia, aphasia and apraxia. No shortness of breath, orthopnea or cardiovascular symptoms. No other symptoms related to end organ damage. Pressure has been under excellent control. Currently normal. No other end organ symptoms or findings. Therapy reviewed regarding management of hypertension and includes salt restriction and Carvedilol and Lisinopril. #3. Type II Hypercholesterolaemia: Currently taking medication and tolerating well. No interval complaints of any muscle pain or arthralgia. No significant liver changes with medications. Last lipid panel: fair control. Therapy reviewed regarding treatment of cholesterol management and include diet and Atorvastatin Calcium. #4. Type II Diabetes: Has had no polyuria polyphagia or polydipsia. Has had no hypoglycemic like responses. No new history of any numbness, tingling, weakness or visual problems. No nausea, anorexia or other constitutional symptoms. There has been no foot problems or non healing lesions. The last HAIC was DCCT HAIC: 5.7 Calculated MB mg%. Average blood sugars unknown. Checking sugars : infrequently Medication Types Include: Metformin Secondary complications include none. Macro-vascular complications include none. Therapy reviewed regarding diabetic management and include Glucophage Compliance: good Renal Protection: ALBERTO inhibitors Lipid management: statins Urinary microalbumin: A1 . Ophthalmological: has seen eye doctor within the last year Active Medication ListSingulair 10 MG TABLET, FILM COATED One DailyCarvedilol 6.25 MG TABLET, FILM COATED One Twice A DayVitamin B-complex 2 DailyAtorvastatin Calcium 10 MG TABLET Once DailyBaclofen 10 MG (TABLET - ORAL) One Three Times A DayGlucophage 500 MG (TABLET - ORAL) One Twice A DayEliquis 5 MG (TABLET - ORAL) One Twice A DayAlbuterol Sulfate Hfa 2 Puffs Four Times A DayLisinopril 40 MG TABLET One DailyPrilosec 40 MG (CAPSULE, DELAYED REL PELLETS - ORAL) One DailyAllopurinol 300 MG (TABLET - ORAL) QdTylenol 500 MG TABLET One Every Six Hours As NeededLasix 40 MG TABLET Once DailyCalcium Chloride 600 MG Once Daily Adverse Drug Reactions ReviewedPenicillin RashVoltaren Shortness Of Breath Vaccination and Xetcoxpvreom2333-66 Tqjkfqokn2046-04 Covid Booster Gkohgzk3825-24 Covid Fbzhroh6492-53 Bxkpglogf6445-95 Prevnar 13 Surgical Kcvbzqe6378-94 Lap Sgvwehirsqsyrmd9387-72 Right Partial Kmhh4732-50 RUL lobectomy CA Bptb0991-28 [facility] XMQ4803-92 Tonsillectomy Preventative Vryobob3710/19/2023 FZTBCINFF18/16/2023 MAMMOGRAM ALBUMIN 4.0 G/DL N005/10/2023 MICRO ALBUMIN 0.6 MG/DL N005/10/2023 HAIC 5.7 % OF TOTAL HGB H1 QEILPFZGWMGOG04/19/2021 CT DMTTZZ8903/24/2021 COLONOSCOPY (5 YEARS) UPPER ENDOSCOPY (ESOPHAGEAL STRICTURE) Social HistorySmoke one pack daily for 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 Arm 124/64Pulse: Sitting 88 /min and RegularRespiratory Rate: 12 Chief Complaint: Addressed in HPI Problems or conditions discussed in the HPI were the only ones reviewed during the encounter.Only social and family history addressed in the HPI were reviewed during this encounter. Attendant(s): NoneConstitutional and Systemic Symptoms:none Medication Reconciliation: from medication list. Rqympjuaiav58/14/2023: Venous doppler negative for DVT. CTA of chest abdomen and pelvis inadequate timing for PE but no saddle embolus. Small to moderate size hiatus hernia. Some atherosclerotic changes but no other significant findings. 02/18/2023 CT scans: CT scan of the brain demonstrated no new findings. Stable from previous examinations. CT scan of thoracic spine negative for any fracture or destructive lesions. CT of the abdomen pelvis negative with the exception of a possible non displaced fracture of the 10th right rib. 02/20/2023: Ultrasound of the pelvis showed no significant anomalies. 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 10-12-2023: CT brain without contrast showed age-related changes no acute process is noted10/12/2023: CT cervical spine negative for any fracture or malalignment. 12-07-2023: CT brain scan demonstrates age-related senescent changes.12/07/2023: CT scan of the abdomen and pelvis demonstrated a couple of indeterminate new pulmonary nodules at the anterior basilar right lower lobe. Largest measuring two by 0.7 cm. Small sliding hiatus hernia. Sigmoid diverticulosis. History of Present Illness #1. Bronchitis: Complains of cough and chest congestion that began several days ago. It has been associated with a cough and yellow and green sputum production. Temperature was not taken. Hemoptysis: No. Nasal Congestion: none. Shortness of Breath: yes. Wheezing: yes. Constitutional Symptoms: none. Systemic Complaints: none. Environmental Exposure: none. #2. COPD: Hx of Emphysema currently stable. There has been no interval change in exercise tolerance an shortness of breath. No change in sputum production, color or consistency. No fever, chills, weight loss or other constitutional symptoms. Gold Scale: Moderate. MRC Scale: normal walking. Smoking: not currently smoking Current medications: Albuterol Sulfate Hfa and Singulair Using nebulizer Treatments: No. Uses intermittent use #3. Essential Hypertension: Stage: Stage I Interval Neurological Complaints no headaches, dizziness, weakness, visual changes, ataxia and aphasia. No shortness of breath, orthopnea or cardiovascular symptoms. No other symptoms related to end organ damage. Pressure has been under excellent control. Currently normal. No other end organ symptoms or findings. Therapy reviewed regarding management of hypertension and includes salt restriction and Carvedilol and Lisinopril. #4. Hx of esophageal reflux currently stable. Hx of Complications: none The severity, duration and intensity of symptoms have improved. Frequency: most meals Treatment consists medications taken on intermittent basis. Current therapy includes Prilosec. There has been no nausea, eructation, vomiting, hematemesis, dysphagia, velopharyngeal insufficiency and odynophagia. No change in he frequency or intensity of symptoms. Has had no melena. Has had no . Discussed use of H2 antagonists and the possibility of trying to reduce the frequency of the use of any PPI inhibitors and try H2 antagonists to see if symptoms can be controlled with lease intensive therapy since a number of complications are associated with chronic prolonged use of PPI inhibitors. #5. Hx of non-small cell CA of the lung. Metastatic: none known There has been no change in breathing. No weight loss or other constitutional symptoms. No hemoptysis or other signs of progression or metastasis. Active Medication ListSingulair 10 MG TABLET, FILM COATED One DailyCarvedilol 6.25 MG TABLET, FILM COATED One Twice A DayVitamin B-complex 2 DailyAtorvastatin Calcium 10 MG TABLET Once DailyBaclofen 10 MG (TABLET - ORAL) One Three Times A DayGlucophage 500 MG (TABLET - ORAL) One Twice A DayEliquis 5 MG (TABLET - ORAL) One Twice A DayAlbuterol Sulfate Hfa 2 Puffs Four Times A DayLisinopril 40 MG TABLET One DailyPrilosec 40 MG (CAPSULE, DELAYED REL PELLETS - ORAL) One DailyAllopurinol 300 MG (TABLET - ORAL) QdTylenol 500 MG TABLET One Every Six Hours As NeededLasix 40 MG TABLET Once DailyCalcium Chloride 600 MG Once Daily Adverse Drug Reactions ReviewedPenicillin RashVoltaren Shortness Of Breath Vaccination and Ctpsmtyiznwr2321-58 Jrxkuxife2426-20 Covid Booster Xyiyggk9767-65 Covid Ihbigzz9250-02 Ojfcnjznn2345-23 Prevnar 13 Surgical Omxvkso8847-09 Lap Herbwjsovfejred2691-50 Right Partial Hfsn6365-79 RUL lobectomy CA Lyzq8506-31 [facility] IUC9075-15 Tonsillectomy Preventative Ezotyta8510/19/2023 YIXOVUJCY39/16/2023 MAMMOGRAM ALBUMIN 4.0 G/DL N005/10/2023 MICRO ALBUMIN 0.6 MG/DL N005/10/2023 HAIC 5.7 % OF TOTAL HGB H1 FNGSTKPFGSMKA52/19/2021 CT YSKMET9703/24/2021 COLONOSCOPY (5 YEARS) UPPER ENDOSCOPY (ESOPHAGEAL STRICTURE) Social HistorySmoke one pack daily for 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 Arm 118/70Pulse: Sitting 65 /min and RegularRespiratory Rate: 12Pulse Oximetry: 90 % at rest on no oxygen Chief Complaint: Addressed in HPI Problems or conditions discussed in the HPI were the only ones reviewed during the encounter.Only social and family history addressed in the HPI were reviewed during this encounter. Attendant(s): NoneConstitutional and Systemic Symptoms:none Medication Reconciliation: from medication list. History of Present Illness #1. COPD: Hx of Emphysema currently stable. There has been no interval change in exercise tolerance an shortness of breath. No change in sputum production, color or consistency. No fever, chills, weight loss or other constitutional symptoms. Gold Scale: Severe. MRC Scale: SOB with changing cloths. Smoking: not currently smoking Current medications: Albuterol Sulfate Hfa Using nebulizer Treatments: No. Uses supplemental oxygen #2. Essential Hypertension: Stage: Stage I Interval Neurological Complaints no headaches, dizziness, weakness, visual changes, ataxia, aphasia and apraxia. No shortness of breath, orthopnea or cardiovascular symptoms. No other symptoms related to end organ damage. Pressure has been under excellent control. Currently normal. No other end organ symptoms or findings. Therapy reviewed regarding management of hypertension and includes salt restriction and Carvedilol and Lisinopril. #3. Type II Hypercholesterolaemia: Currently taking medication and tolerating well. No interval complaints of any muscle pain or arthralgia. No significant liver changes with medications. Last lipid panel: fair control. Therapy reviewed regarding treatment of cholesterol management and include diet and Atorvastatin Calcium. #4. Type II Diabetes: Has had no polyuria polyphagia or polydipsia. Has had no hypoglycemic like responses. No new history of any numbness, tingling, weakness or visual problems. No nausea, anorexia or other constitutional symptoms. There has been no foot problems or non healing lesions. The last HAIC was none done recently. Average blood sugars unknown. Checking sugars : infrequently Medication Types Include: Metformin Secondary complications include none. Macro-vascular complications include Glucophage. Therapy reviewed regarding diabetic management and include good Compliance: ALBERTO inhibitors Renal Protection: statins Lipid management: A1 Urinary microalbumin: has seen eye doctor within the last year . Ophthalmological: none #5. Hx of esophageal reflux currently stable. Hx of Complications: improved The severity, duration and intensity of symptoms have most meals. Frequency: a regular Treatment consists medications taken on Prilosec basis. Current therapy includes no nausea, eructation, vomiting, hematemesis, dysphagia, velopharyngeal insufficiency and odynophagia. There has been no. No change in he frequency or intensity of symptoms. Has had no melena. Has had and the possibility of trying to reduce the frequency of the use of any PPI inhibitors and try H2 antagonists to see if symptoms can be controlled with lease intensive therapy since a number of complications are associated with chronic prolonged use of PPI inhibitors . Discussed use of H2 antagonists non-small cell. #6. Hx of none known CA of the lung. Metastatic: none known There has been no change in breathing. No weight loss or other constitutional symptoms. No hemoptysis or other signs of progression or metastasis. Active Medication ListSingulair 10 MG TABLET, FILM COATED One DailyCarvedilol 6.25 MG TABLET, FILM COATED One Twice A DayVitamin B-complex 2 DailyAtorvastatin Calcium 10 MG TABLET Once DailyBaclofen 10 MG (TABLET - ORAL) One Three Times A DayGlucophage 500 MG (TABLET - ORAL) One Twice A DayEliquis 5 MG (TABLET - ORAL) One Twice A DayAlbuterol Sulfate Hfa 2 Puffs Four Times A DayLisinopril 40 MG TABLET One DailyPrilosec 40 MG (CAPSULE, DELAYED REL PELLETS - ORAL) One DailyAllopurinol 300 MG (TABLET - ORAL) QdTylenol 500 MG TABLET One Every Six Hours As NeededLasix 40 MG TABLET Once DailyCalcium Chloride 600 MG Once Daily Adverse Drug Reactions ReviewedPenicillin RashVoltaren Shortness Of Breath Vaccination and Bqbxtgpcmodg5872-12 Zylsbrvfg2353-43 Covid Booster Swzjbst3387-37 Covid Odtvxde2452-04 Fuiyeqitu7385-00 Prevnar 13 Gc Surgical Rcipnww1861-40 Lap Oddngkwbyvqpfeq7995-01 Right Partial Swam1483-68 RUL lobectomy CA Djeg7502-32 [facility] ODN6568-69 Tonsillectomy Preventative Zvoreah4410/19/2023 RMOXYNUNI34/16/2023 MAMMOGRAM /04/2023 ALBUMIN 4.0 G/DL N005/10/2023 MICRO ALBUMIN 0.6 MG/DL N005/10/2023 HAIC 5.7 % OF TOTAL HGB H1 OSRBVUYUONVJU79/19/2021 CT TUUFDS5803/24/2021 COLONOSCOPY (5 YEARS) / UPPER ENDOSCOPY (ESOPHAGEAL STRICTURE) Social HistorySmoke one pack daily for over 40 yearsDrinks sociallyRetired banker Family HistoryMother 97 hx of rectal cancer in 60'sFather 65 from PAD and alcoholismTwo brothers one killed in MVA and other COVID, HTN and DMOne sister living with DMMenarche 12 Menopause 48 A0 Active Medication ListSingulair 10 MG TABLET, FILM COATED One DailyCarvedilol 6.25 MG TABLET, FILM COATED One Twice A DayVitamin B-complex 2 DailyAtorvastatin Calcium 10 MG TABLET Once DailyBaclofen 10 MG (TABLET - ORAL) One Three Times A DayGlucophage 500 MG (TABLET - ORAL) One Twice A DayEliquis 5 MG (TABLET - ORAL) One Twice A DayAlbuterol Sulfate Hfa 2 Puffs Four Times A DayLisinopril 40 MG TABLET One DailyPrilosec 40 MG (CAPSULE, DELAYED REL PELLETS - ORAL) One DailyAllopurinol 300 MG (TABLET - ORAL) QdTylenol 500 MG TABLET One Every Six Hours As NeededLasix 40 MG TABLET Once DailyCalcium Chloride 600 MG Once Daily Adverse Drug Reactions ReviewedPenicillin RashVoltaren Shortness Of Breath Vaccination and Qpfqjgfhxkxe8164-92 Sugonocoa1460-26 Covid Booster Vdvmvdf8819-27 Covid Ilhpkck1543-77 Fatsompgw2470-32 Prevnar 13 Gc Surgical Spehyxn0201-15 Lap Lhsqbqjxvxaayls6499-65 Right Partial Fwru7097-71 RUL lobectomy CA Ltel4580-66 [facility] UQA2244-78 Tonsillectomy Preventative Hcoftkw4910/19/2023 VKWKBUENW41/16/2023 MAMMOGRAM /04/2023 ALBUMIN 4.0 G/DL N005/10/2023 MICRO ALBUMIN 0.6 MG/DL N005/10/2023 HAIC 5.7 % OF TOTAL HGB H1 QZCSPVZVYVNDO96/19/2021 CT IAXOPL9203/24/2021 COLONOSCOPY (5 YEARS) UPPER ENDOSCOPY (ESOPHAGEAL STRICTURE) Social HistorySmoke one pack daily for over 40 yearsDrinks sociallyRetired banker Family HistoryMother 97 hx of rectal cancer in 60'sFather 65 from PAD and alcoholismTwo brothers one killed in MVA and other COVID, HTN and DMOne sister living with DMMenarche 12 Menopause 48 A0 Cristiano Duff MD [address] [facility] [address], [place], [address], [place] - S 28msec 04/29/2024 14:45:06 OBGyn Episode No OBEpisode recorded.
--- OUTSIDE RECORDS SUMMARY | 2025-01-30 09:36 | XMS_ITS | Encounter Summary ---
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 us Provider Transcribed Order IMG CT PROCEDURES Fin al Result RAD_SHILA_MHB_MHE documented in this encounter Visit Diagnoses Not on filedocumented in this encounter
--- OUTSIDE RECORDS SUMMARY | 2025-01-30 09:37 | XMS_ITS ---
Author Organization [facility] Address [address] [place] [address] Care Team Providers Care Pugger Helper Name Role Phone Monserrat Pierre MD Unavailable [phone] Jacky Duff MD Primary Care Provider Rikki Pedraza MD PhD Unavailable Stanford Gannon MD Unavailable [phone] Ag Steven MD Unavailable [phone] Active Problems Problem Noted Date Diagnosed Date SOB (shortness of breath) 04/07/2024 PVD (peripheral vascular disease) 07/10/2023 Assessment & Plan (07/10/2023 2:36 PM CDT): Based on her history she has no signs of claudication. Clinically has palpable pulses. ABIs are normal with D ABIs consistent with some inframalleolar occlusive disease. Recommend risk factor modification with ASA statin therapy in good blood pressure control. Can follow-up as needed. Personal history of radiation therapy 02/05/2023 Anemia, unspecified 05/22/2018 Essential hypertension 10/02/2016 Assessment & Plan (07/10/2023 2:36 PM CDT): Stable continue Lasix 20 mg. Type 2 diabetes mellitus 10/02/2016 Hypercholesterolemia 10/02/2016 Assessment & Plan (07/10/2023 2:36 PM CDT): Stable continue Lipitor 10 mg. History of ischemic stroke without residual defi cits 10/02/2016 Bleeding from mouth 10/17/2013 Malignant neoplasm of upper lobe of right lung 1 Cancer Staging:Clinical stage from 10/15/2015: T2, N2, M0 - Signed by Brady Chen MD on 06/10/2018 Lymphadenopathy 08/21/2013 Cephalalgia 08/21/2013 Asthma Current Treatment and Therapy Plans No current plan information found. Past Treatment and Therapy Plans Oncology Supportive Care Plan Name Start Date Discontinue Date Treatment Medications Discontinue Reason Plan Provider IV MAINTENANCE THERAPY PLAN 04/15/2018 01/01/2024 No medications scheduled. Orders Brady Chen MD Lifetime Dose Tracking * Chemical Lifetime Dose Automatic Entry Manual Entr y Fluoro Time 0.1 minutes 0.1 minutes 0 minutes
--- OUTSIDE RECORDS SUMMARY | 2025-01-30 09:37 | XMS_ITS | Clinical Summary ---
Author Organization [facility] Address [address] [place] [address] Care Team Providers Care Recruitment Intern Name Role Phone Jacky Duff MD Primary Care Provider [phone] Allergies Active Allergy Reactions Criticality Noted Date Comments Diclofenac Other (see comment), Shortness of Breath High 06/10/2018 Penicillins Itching,Rash Low 01/10/2017 Medications albuterol sulfate HFA 108 (90 Base) MCG/ACT inhaler Inhale 1 puff into the lungs daily as needed. Active allopurinol (ZYLOPRIM) 300 MG tablet Take 300 mg by mouth daily. Active apixaban (ELIQUIS) 5 MG tablet Take 5 mg by mouth 2 (two) times daily. Active TRELEGY ELLIPTA 100-62.5-25 MCG/ACT AEROSOL POWDER, BREATH ACTIVATED Inhale 1 puff into the lungs daily. 09/10/2022 Active montelukast (SINGULAIR) 10 MG tablet Take 10 mg by mouth daily. 09/13/2022 Active omeprazole (PRILOSEC) 40 MG capsule Take 40 mg by mouth daily. Active pravastatin (PRAVACHOL) 40 MG tablet Take 40 mg by mouth daily. Active traZODone (DESYREL) 50 MG tablet Take 50 mg by mouth daily. Active traMADol (ULTRAM) 50 MG tablet Take 50 mg by mouth every 4 (four) hours as needed for Pain. Active B Complex-C Tab tablet Take 1 tablet by mouth daily. Active metFORMIN (GLUCOPHAGE) 500 MG tablet Take 500 mg by mouth 2 (two) times daily with meals. Active oyster shell calcium 500 mg, elemental, (OSCAL) 500 MG tablet Take 1 tablet by mouth 2 (two) times a day. Active HYDROcodone-tisha taminophen (NORCO) 5-325 MG tabletIndicatio ns:Acute Pain < 7 Day Supply Take 1 tablet by mouth every 6 (six) hours as needed for Pain. Indications: Acute Pain < 7 Day Supply 15 tablet 11/21/2022 Active baclofen (LIORESAL) 10 MG tablet Take 1 tablet (10 mg total) by mouth 3 (three) times daily as needed. 30 tablet 11/21/2022 Active polyethylene glycol (GLYCOLAX) packet Take 240 mLs (17 g total) by mouth daily. Dissolve powder in 240 mL water 14 each 11/21/2022 Active Active Problems Problem Noted Date Diagnosed Date SOB (shortness of breath) 11/19/2022 Pain of right lower extremity 11/19/2022 Resolved Problems Problem Noted Date Diagnosed Date Resolved Date Sepsis ([facility]) 11/19/2022 Social History Tobacco Use Types Packs/Day Years Used Date Smoking Tobacco: Never Passive Smoke Exposure: Never Smokeless Tobacco: Never Tobacco Cessation:Counseling Given: No Alcohol Use Standard Drinks/Week Comments Never 0 (1 standard drink = 0.6 oz pur e alcohol) Humiliation, Afraid, Rape, and Kick questionnair e Answer Date Recorded Within the last year, have y ou been afraid of your partner or ex-partner? Patient declined 11/19/2022 Within the last year, have y ou been humiliated or emotionally abused in other ways by your partner or ex-partner? Patient declined 11/19/2022 Within the last year, have y ou been kicked, hit, slapped, or otherwise physically hurt by your partner or ex-partner? Patient declined 11/19/2022 Within the last year, have y ou been raped or forced to have any kind of sexual activity by your partner or ex-partner? Patient declined 11/19/2022 Social Connection and Isolation Panel [NHANES] A nswer Date Recorded In a typical week, how many times do you talk on the phone with family, friends, or neighbors? Once a week 11/19/2022 How often do you get togethe r with friends or relatives? Once a week 11/19/2022 How often do you attend christianity or anglican serv ices? Never 11/19/2022 Do you belong to any clubs o r organizations such as christianity groups, unions, fraternal or athletic groups, or school groups? No 11/19/2022 How often do you attend meet ings of the clubs or organizations you belong to? Never 11/19/2022 Are you , , di vorced, , never , or living with a partner? Patient declined 11/19/2022 AUDIT-C Answer Date Recorded Q1: How often do you have a drink containing alcohol? Never 11/19/2022 Q2: How many drinks containi ng alcohol do you have on a typical day when you are drinking? Patient does not drink Q3: How often do you have si x or more drinks on one occasion? Never 11/19/2022 Overall Financial Resource Strain (CARDIA) Answe r Date Recorded How hard is it for you to pa y for the very basics like food, housing, medical care, and heating? Not hard at all 11/19/2022 [facility] - Occupational Stress Questionnaire Answer Date Recorded Do you feel stress - tense, restless, nervous, or anxious, or unable to sleep at night because your mind is troubled all the time - these days? To some extent 11/19/2022 Exercise Vital Sign Answer Date Recorde d On average, how many days pe r week do you engage in moderate to strenuous exercise (like a brisk walk)? 0 days 11/19/2022 On average, how many minutes do you engage in exercise at this level? 0 min 11/19/2022 Hunger Vital Sign Answer Date Recorded Within the past 12 months, y ou worried that your food would run out before you got the money to buy more. Never true 11/19/19 23 Within the past 12 months, t he food you bought just didn't last and you didn't have money to get more. Never true 11/19/2022 PRAPARE - Transportation Answer Date Re corded In the past 12 months, has l ack of transportation kept you from medical appointments or from getting medications? No 11/05 In the past 12 months, has l ack of transportation kept you from meetings, work, or from getting things needed for daily living? No 11/19/2022 Housing Stability Vital Sign Answer Vishnu e Recorded In the last 12 months, was t here a time when you were not able to pay the mortgage or rent on time? No 11/19/2022 In the last 12 months, how many places have you lived? 1 11/19/2022 In the last 12 months, was t here a time when you did not have a steady place to sleep or slept in a long term (including now)? No 11/19/2022 Comments Unknown Sex and Gender Information Value Date Recorded Sex Assigned at Not on file Legal Sex Female 4:47 PM CDT Gender Identity Not on file Sexual Orientation Not on file Last Filed Vital Signs Vital Sign Reading Time Taken Comments Blood Pressure 132/63 11/21/2022 7:32 AM FORESTRY LABORER Pulse 99 11/21/2022 7:32 AM FORESTRY LABORER Temperature 36.4 C (97.5 F) 11/21/2022 4:14 AM FORESTRY LABORER Respiratory Rate 15 11/21/2022 7:32 AM FORESTRY LABORER Oxygen Saturation 93% 11/21/2022 7:32 AM FORESTRY LABORER Inhaled Oxygen Concentration - - Weight 98 kg (216 lb 0.8 oz) 11/21/2022 5:00 AM FORESTRY LABORER Height 165.1 cm (5' 5 ) 11/18/2022 3:45 PM FORESTRY LABORER Body Mass Index 35.95 11/18/2022 3:45 PM FORESTRY LABORER Plan of Treatment Health Maintenance Due Date Last Done Comments Hepatitis C 1966 DTaP, Tdap and Td Vaccines (1 - Tdap) 1967 Zoster Vaccines (1 of 2) 1998 Annual Medicare Wellness Visit 2013 Dexa Scan (General) 2013 Pneumococcal Vaccine: 65+ Years (2 of 2 - PPSV23 or PCV20) 11/02/2017 11/02/2016 RSV Immunization or 60+ Years (1 - 1-dose 75+ series) 2023 COVID-19 Vaccine ( season) 2024 08/20/2022, 02/06/2022, 09/15/2021, Additional history exists Influenza Adult (#1) 2024 08/04/2019, 08/12/2018, 08/09/2018, Additional history exists Meningococcal B Vaccine Aged Out No l onger eligible based on patient's age to complete this topic Meningococcal Vaccine Aged Out No spring carol eligible based on patient's age to complete this topic RSV Immunizations Under 20 Months Aged Out No longer eligible based on patient's age to complete this topic Goals Goal Patient Goal Type Associated Problems Recent Progress Patient-Stated? Author Patient will return to prior living situation and remain independent in ADLs upon discharge from hospital Lifestyle No Courtney Marrufo, RN Insurance MEDICARE [facility] Advance Directives * Full Code (Latest Code Status on File) Date Activated Date Inactivated Comments 11/19/2022 12:49 AM 11/21/2022 2:09 PM Care Teams Recruitment Intern Relationship Specialty Start Date End Date Jacky Duff MD [address] [address] PCP - General INTERNAL MEDICINE 11/18/22
--- OUTSIDE RECORDS SUMMARY | 2025-01-30 09:37 | XMS_ITS | Referral Summary ---
Author Organization [facility] Address [address] [place] [address] Care Team Providers Care Senior Etl Developer Name Role Phone Monserrat Pierre MD Unavailable Jacky Duff MD Primary Care Provider Rikki Pedraza MD PhD Unavailable Stanford aGnnon MD Unavailable [phone] Ag Steven MD Unavailable [phone] Allergies Active Allergy Reactions Criticality Noted Date Comments Diclofenac Shortness of breath High 06/10/2018 Penicillins Itching Low 06/10/2018 Torsemide Unknown Low 05/14/2023 Medications metFORMIN (GLUCOPHAGE) 500 mg tablet 0 02/23/20 18 Active omeprazole (PriLOSEC) 40 mg capsule Take 1 capsule (40 mg total) by mouth daily 06/20/20 19 Active vitamin B complex (B COMPLEX 1 ORAL) Take by mouth 2 (two) times a day Active calcium carbonate/vitam in D3 (CALCIUM 500 + D, D3, ORAL) Take by mouth Active apixaban (Eliquis) 5 mg tablet 06/29/20 16 Active allopurinoL (ZYLOPRIM) 300 mg tablet 01/15/20 21 Active furosemide (LASIX) 20 mg tablet daily Active metoprolol XL (TOPROL-XL) 25 mg extended release tablet 02/16/20 22 Active traZODone (DESYREL) 50 mg tablet Take 1 tablet (50 mg total) by mouth nightly Active cyclobenzaprine (FLEXERIL) 10 mg tablet cyclobenzaprine 10 mg tablet TAKE 1 TABLET BY MOUTH THREE TIMES DAILY NEEDED Active predniSONE (DELTASONE) 5 mg tablet Take 1 tablet (5 mg) by mouth 2 (two) times a day 01/23/20 23 Active atorvastatin (LIPITOR) 10 mg tablet Take 1 tablet (10 mg total) by mouth daily 03/29/20 23 Active lisinopriL (PRINIVIL,ZESTR IL) 40 mg tablet Take 1 tablet (40 mg total) by mouth daily 06/03/20 23 Active montelukast (SINGULAIR) 10 mg tablet TAKE 1 TABLET(10 MG) BY MOUTH EVERY NIGHT 90 tablet 1 12/31/19 24 Active furosemide (LASIX) 40 mg tablet Take 1 tablet (40 mg total) by mouth daily 01/30/20 24 Active phenylephrine-p ramoxine-glycer in-petrolatum (PREPARATION H) 0.25-1 % cream administer to rectum as needed 12/24/19 24 Active loperamide-sofia thicone (Imodium Multi-Symptom Relief) 2-125 mg tablet take as directed on package as needed 12/24/19 24 Active carvediloL (COREG) 6.25 mg tablet Take 1 tablet (6.25 mg total) by mouth 2 (two) times a day Activ e magnesium oxide (MAG-OX) 400 mg (241.3 mg elemental magnesium) tablet Take by mouth 2 (two) times a day Active polyethylene glycol (MIRALAX) 17 gram packet Take 1 packet every day by oral route. 11/22/19 23 Active lisinopril-hydr oCHLOROthiazide (ZESTORETIC) 20-12.5 mg per tabletIndicatio ns:hypertension Take 1 tablet by mouth daily Active acetaminophen (TYLENOL) 500 mg tablet Take 1 tablet (500 mg total) by mouth every 6 (six) hours as needed for pain Active triamcinolone (KENALOG) 0.1 % cream Apply topically 2 (two) times a day Active traMADoL (ULTRAM) 50 mg tablet Take 1 tablet (50 mg total) by mouth every 6 (six) hours as needed for pain Active baclofen (LIORESAL) 10 mg tabletIndicatio ns:Malignant neoplasm of upper lobe of right lung (HCC) TAKE 1 TABLET(10 MG) BY MOUTH THREE TIMES DAILY 90 tablet 3 03/01/20 24 Active Ventolin HFA 90 mcg/actuation inhalerIndicati ons:Chronic obstructive pulmonary disease, unspecified COPD type (HCC) INHALE 2 PUFFS BY MOUTH EVERY 6 HOURS NEEDED FOR WHEEZING OR SHORTNESS OF BREATH 18 g 1 04/16/20 24 Active empagliflozin (Jardiance) 10 mg tablet Take 1 tablet (10 mg total) by mouth daily 05/15/20 24 Active fluticasone propion-salmete roL (Advair Diskus) 500-50 mcg/dose diskus inhaler Inhale 1 puff 2 (two) times a day Rinse mouth with water after use. Do not swallow. 3 each 09/18/20 24 Active Active Problems Problem Noted Date Diagnosed [...] on 06/10/2018 Lymphadenopathy 08/21/2013 Cephalalgia 08/21/2013 Asthma Immunizations Immunization Administration Dates Next Due Influenza, Quad, Adjuvantated, Intramuscular 06/2020 Influenza, Trivalent, Adjuvanted, Intramuscular 08/04/2019 Influenza, Trivalent, IM (MDV) 10/19/2016 Influenza, Unspecified 08/09/2018 Moderna SARS-CoV-2 Monovalent Vaccination (12+ Y RS) 01/25/2021,12/28/2020 Pneumococcal Conjugate, Unspecified 09/08/2013 Pneumococcal, Unspecified 08/09/2018 Social History Tobacco Use Types Packs/Day Years Used Date Smoking Tobacco: Former Cigarettes 1 40 1 972 - 2011 Smokeless Tobacco: Never Alcohol Use Standard Drinks/Week Comments No 0 (1 standard drink = 0.6 oz pur e alcohol) AUDIT-C Answer Date Recorded Frequency of Alcohol Consumption Not on file 01/01/2024 Q2: How many drinks containi ng alcohol do you have on a typical day when you are drinking? Patient does not drink Frequency of Binge Drinking Not on file 12/07 Comments No Sex and Gender Information Value Date Recorded Sex Assigned at Not on file Legal Sex Female 3:04 AM STEEPLECHASE JOCKEY Gender Identity Female 08/22/2019 1:31 PM CDT Sexual Orientation Not on file Last Filed Vital Signs Vital Sign Reading Time Taken Comments Blood Pressure 128/62 09/18/2024 10:56 AM STEEPLECHASE JOCKEY Pulse 84 09/18/2024 10:56 AM STEEPLECHASE JOCKEY Temperature 36.1 C (97 F) 09/18/2024 10:56 AM STEEPLECHASE JOCKEY Respiratory Rate 18 09/18/2024 10:56 AM STEEPLECHASE JOCKEY Oxygen Saturation 94% 09/18/2024 10:56 AM STEEPLECHASE JOCKEY Inhaled Oxygen Concentration - - Weight 93.4 kg (206 lb) 02/06/2024 10:19 AM CDT Height 165.1 cm (5' 5 ) 09/18/2024 10:56 AM STEEPLECHASE JOCKEY Body Mass Index 34.28 01/01/2024 1:48 PM STEEPLECHASE JOCKEY Plan of Treatment Not on file Medical Devices Implanted Type Area Date Night Sitter Device Identifier Shelf Expiration Date Model / Serial / Lot Portacath Chest Wall Procedures Procedure Name Priority Date/Time Associated Diagnosis Comments EGFR Routine 11/23/2021 1:16 PM STEEPLECHASE JOCKEY Encounter for management of implanted device Malignant neoplasm of upper lobe of right lung (HCC) SERUM LIPID PANEL Routine 06/18/2016 9:0 8 AM CDT from Last 3 Months or Most Recently Relevant to Health Maintenance Results * eGFR (11/23/2021 1:16 PM STEEPLECHASE JOCKEY) eGFR 68 mL/min/1. 73 m2 CHEYV DOSHI Comment: Interpretive Data Reference Interval Normal >/= 90 mL/min/1.73m2 Mildly decreased* 60 - 89 mL/min/1.73m2 Mildly to moderately decreased 45 - 59 mL/min/1.73m2 Moderately to severely decreased 30 - 44 mL/min/1.73m2 Severely decreased 15 - 29 mL/min/1.73m2 Kidney Failure < 15 mL/min/1.73m2 *Relative to young adult level Estimated glomerular filtration rate is determined by the 2020 CKD-EPI equation recommended by the National Kidney Foundation (A Unifying Approach to GFR Estimation: Recommendations of the NKF-ASK Task Force on Reassessing the Inclusion of Race in Diagnosing Kidney Disease, JASN 2020). The CKD-EPI equation should not be used for patients with unstable renal function and has not been validated in children and those over 70. Current interpretive data was last reviewed 2021. Testing performed by: [facility], [address] [place] [address]., [address] Blood 11/23/2021 1:16 PM STEEPLECHASE JOCKEY 11/23/2021 1:26 PM STEEPLECHASE JOCKEY us Rikki Pedraza MD PhD LAB BLOOD ORDERABLES Final Result CHEVY [address] [facility] Department [place] [address] * Serum lipid panel (06/18/2016 9:08 AM CDT) LDL 38 10 - 129 mg/dl CDR HISTORICAL RESULTS Comment: Interpretive Data Optimal: < 100 mg/dL Near Optimal: 100 - 129 mg/dL Borderline High: 130 - 159 mg/dL High: 160 - 189 mg/dL Very high: > or = 190 mg/dL Literature Reference: See Cholesterol Current interpretive data was last revised on 2015. Cholesterol 136 30 - 200 mg/dl CDR HISTORICAL RESULTS Comment: Interpretive Data Desirable: <200 mg/dL Borderline high: 200-239 mg/dL High: > or = 240 mg/dL Literature Reference: National Cholesterol Education Program (NCEP) Expert Panel on Detection, Evaluation, and Treatment of High Blood Cholesterol in Adults (Adult Treatment Panel III). Circulation 2004; 110:227. Current interpretive data was last revised on 2015. Triglycerides 113 0 - 150 mg/dl CDR HISTORICAL RESULTS Comment: Interpretive Data Desirable: < 150 mg/dL Borderline High: 150 - 199 mg/dL High: 200 - 499 mg/dL Very High: > or = 499 mg/dL Literature Reference: See Cholesterol Current interpretive data was last revised on 2015. HDL 75 >=40 mg/dl CDR HISTO RICAL RESULTS Comment: Interpretive Data Less than 40 mg/dL - low; A major risk factor for heart disease. Greater than or equal to 60 mg/dL - High; considered protective of heart disease. Literature Reference: See Cholesterol Current interpretive data was last revised on 2015. Non-HDL cholesterol, calculated 61 mg/dl CDR HISTORICAL RESULTS Comment: Interpretive Data When triglycerides are >200 mg/dL, non-HDL C is a secondary target of therapy, with a goal 30 mg/dL higher than the identified LDL-C goal. Reference: See Cholesterol Reference. Current interpretive data was last revised 2015. Serum 06/18/2016 9:08 AM CDT Jamie Shrestha MD PhD LAB BLOOD ORDERABLES Final Result CDR HISTORICAL RESULTS from Last 3 Months or Most Recently Relevant to Health Maintenance [place] [address] [facility] MEDICARE SUPPLEMENT Advance Directives For more information, please contact: [phone] * Full Code (Latest Code Status on File) Date Activated Date Inactivated Comments 11/29/2021 9:12 AM 11/29/2021 2:24 PM Care Teams Senior Etl Developer Relationship Specialty Start Date End Date Jacky Duff MD [address] [facility] [address] [place] [address] PCP - General Internal Medicine 02/05/19 Monserrat Pierre MD Referring Physician Cardiothoracic Surgery 10/09/18 Rikki Pedraza MD PhD 1418 [facility] MEDICAL ONCOLOGY, [address] [address] Consulting Physician Medical Oncology 11/23/21 Stanford Gannon MD 4600 [facility] [address] [place] [address] Surgeon Pulmonary Disease 02/05/23 Ag Steven MD [address] [place] [address] [address] [place], [place] [address] Radiation Oncologist Radiation Oncology 01/03/24
--- OUTSIDE RECORDS SUMMARY | 2025-01-30 09:37 | XMS_ITS | Clinical Summary ---
Author Organization [facility] Address [address] [place] [address] Care Team Providers Care Brush Finisher Name Role Phone Monserrat Pierre MD Unavailable [phone] Jacky Duff MD Primary Care Provider Rikki Pedraza MD PhD Unavailable Stanford Gannon MD Unavailable [phone] Ag Steven MD Unavailable [phone] Allergies Active Allergy Reactions Criticality Noted [...] Pneumococcal Conjugate, Unspecified 09/08/2013 Pneumococcal, Unspecified 08/09/2018 Surgical History Surgery Date Site/Laterality Comments CA TOTAL ABDOMINAL HYSTERECT W/WO RMVL TUBE OVARY Hysterectomy - (Added by TW Conv) CA UNLISTED PROCEDURE LUNGS & PLEURA Lung Surgery - 2012, for CA (Added by TW Conv) LUNG SURGERY COLONOSCOPY HYSTERECTOMY KNEE ARTHROPLASTY Right CHOLECYSTECTOMY PORT REMOVAL 11/29/2021 N/A Medical History Medical History Date Comments Personal history of other en docrine, nutritional and metabolic disease History of diabetes mellitus - (Added by TW Conv) Personal history of other di seases of the circulatory system History of hypertension - (A dded by TW Conv) Personal history of other en docrine, nutritional and metabolic disease History of hyperlipi demia - (Added by TW Conv) Personal history of other ma lignant neoplasm of bronchus and lung History of malignant opal plasm of lung - Hx of both SC and NSC cancer (Added by TW Conv) Personal history of pulmonary embolism History of pulmonary embolism - hx 'saddle embolism' 2015, [facility] (Added by TW Conv) Lung cancer (HCC) Diabetes mellitus (HCC) Hypertension Family History Medical History Relation Name Comments Diabetes Brother Diabetes Mellit us - (Added by TW Conv) Rectal cancer Mother Rectal Cancer - (Added by TW Conv) Relation Name Status Comments Brother Mother Alive 65 when diagnos ed Social History Tobacco Use Types Packs/Day Years [...] on file Legal Sex 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 PACKAGE SEALER Gender Identity Female 08/22/2019 1:31 PM CDT Sexual Orientation Not on file Obstetrics History Last Filed Vital Signs Vital Sign Reading Time Taken Comments Blood Pressure 128/62 09/18/2024 10:56 AM MACHINE PACKAGE SEALER Pulse 84 09/18/2024 10:56 AM MACHINE PACKAGE SEALER Temperature 36.1 C (97 F) 09/18/2024 10:56 AM MACHINE PACKAGE SEALER Respiratory Rate 18 09/18/2024 10:56 AM MACHINE PACKAGE SEALER Oxygen Saturation 94% 09/18/2024 10:56 AM MACHINE PACKAGE SEALER Inhaled Oxygen Concentration - - Weight 93.4 kg (206 lb) 02/06/2024 10:19 AM CDT Height 165.1 cm (5' 5 ) 09/18/2024 10:56 AM MACHINE PACKAGE SEALER Body Mass Index 34.28 01/01/2024 1:48 PM MACHINE PACKAGE SEALER Plan of Treatment Health Maintenance Due Date Last Done Comments Albumin Creatinine Ratio, Urine 1948 Depression Screening 1948 Hemoglobin A1C 1948 Hepatitis C Screening 1948 Osteoporosis Screening-Bone Density Scan 1948 Dilated Eye Exam 1948 Foot Exam 1948 DTaP/Tdap/Td Vaccine (1 - Tdap) 1959 Hepatitis B Screening 1966 Zoster Vaccine (1 of 2) 1998 Well Visit 65+ 2013 Pneumococcal vaccine 65+ (2 of 2 - PPSV23) 11/03/2013 08/09/2018, 09/08/2013 Lipid Panel 06/18/2017 06/18/2016, 09/03/2013 eGFR 11/23/2022 11/23/2021, 04/06, 08/06/2019, Additional history exists Fall Risk Assessment 11/29/2022 11/29/2021 Covid-19 Vaccine (2023-12 5 season) 2024 08/20/2022, 02/06/2022, 09/15/2021, Additional history exists Influenza Vaccine (#1) 2024 , 08/12/2020, 08/04/2019, Additional history exists Medical Devices Implanted Type Area Rn Ed Device Identifier Shelf Expiration Date Model / Serial / Lot Portacath Chest Wall Procedures Procedure Name Priority Date/Time Associated Diagnosis Comments EGFR Routine 11/23/2021 1:16 PM MACHINE PACKAGE SEALER Encounter for management of implanted device Malignant neoplasm of upper lobe of right lung (HCC) SERUM LIPID PANEL Routine 06/18/2016 9:0 8 AM CDT from Last 3 Months or Most Recently Relevant to Health Maintenance Results * eGFR (11/23/2021 1:16 PM MACHINE PACKAGE SEALER) eGFR 68 mL/min/1. 73 m2 [facility] DOSHI Comment: Interpretive Data Reference Interval Normal [...] was last reviewed 2021. Testing performed by: [facility], [address] [place] [address]., [address] Blood 11/23/2021 1:16 PM MACHINE PACKAGE SEALER 11/23/2021 1:26 PM MACHINE PACKAGE SEALER us Rikki Pedraza MD PhD LAB BLOOD ORDERABLES Final Result CHEV[facility] [address] [facility] Department [place] [address] * Serum lipid panel (06/18/2016 [...] Relevant to Health Maintenance Insurance MEDICARE MEDICARE [facility] MEDICARE SUPPLEMENT Advance Directives For more information, please contact: [phone] * Full Code (Latest Code Status on File) Date Activated Date Inactivated Comments 11/29/2021 9:12 AM 11/29/2021 2:24 PM Care Teams Brush Finisher Relationship Specialty Start Date End Date Jacky Duff MD [address]43 [facility] [address] [place] [address] PCP - General Internal Medicine 02/05/19 Monserrat Pierre MD Referring Physician Cardiothoracic Surgery 10/09/18 Rikki Pedraza MD PhD 1418 [facility] MEDICAL ONCOLOGY, [facility] [address] [place] [address] Consulting Physician Medical Oncology 11/23/21 Stanford Gannon MD [facility] [facility] [address] [place] [address] Surgeon Pulmonary Disease 02/05/23 Ag Steven MD 1418 [facility] [address] [place], [place] [id number] Radiation Oncologist Radiation Oncology 01/03/24
--- OUTSIDE RECORDS SUMMARY | 2025-01-30 09:37 | XMS_ITS | Encounter Summary ---
Author Organization [facility] Address [address] [place] [address] Phone Care Team Providers Care Telecommunications Network Planner Name Role Phone Brady Chen MD Unavailable [phone] Monserrat Pierre MD Unavailable [phone] Jacky Duff MD Primary Care Provider Rikki Pedraza MD PhD Unavailable [phone] Ag Steven MD Unavailable [phone] Stanford Gannon MD Unavailable [phone] Ag Steven MD Unavailable [phone] Encounter Details Date Type Department Care Team (Latest Contact Info) Description 01/21/2020 Orders Only [facility] Scanning, Provider Social History Tobacco Use Types Packs/Day Years Used Date Smoking Tobacco: Former Cigarettes 1 40 1 972 - 2012 Smokeless Tobacco: Never Alcohol Use Standard Drinks/Week Comments No 0 (1 standard drink = 0.6 oz pur e alcohol) Comments Unknown Sex and Gender Information Value Date Recorded Sex Assigned at Not on file Legal Sex Female 3:04 AM ECHO VASCULAR TECHNOLOGIST Gender Identity Female 08/22/2019 1:31 PM CDT Sexual Orientation Not on file documented as of this encounter Plan of Treatment Not on file documented as of this encounter Procedures Procedure Name Priority Date/Time Associated Diagnosis Comments SCAN - RADIOLOGY/IMAGING 01/21/2020 documented in this encounter Results * SCAN - RADIOLOGY/IMAGING (01/21/2020) Anatomical Region Laterality Modality Other us Provider Scanning Edited Result - Final documented in this encounter Visit Diagnoses Not on filedocumented in this encounter Care Teams Telecommunications Network Planner Relationship Specialty Start Date End Date Jacky Duff MD [address] [facility] [address] [place] [address] PCP - General Internal Medicine 02/05/19 Brady Chen MD Medical Oncologist/Hematologis t Hematology and Oncology 06/07/18 11/22/21 Monserrat Pierre MD Referring Physician Cardiothoracic Surgery 10/09/18 Rikki Pedraza MD PhD [address] [place] [address] MEDICAL ONCOLOGY, [address] [address] Consulting Physician Medical Oncology 11/23/21 Ag Steven MD [address] [place] [address] MEDICAL ONCOLOGY, [facility] [address] [place] [address] Radiation Oncologist Radiation Oncology 02/05/23 Stanford Gannon MD [address] [address] Surgeon Pulmonary Disease 02/05/23 Ag Steven MD [address] [place] [address] [address] [place], [place] [address] Radiation Oncologist Radiation Oncology 01/03/24 documented as of this encounter
--- OUTSIDE RECORDS SUMMARY | 2025-01-30 09:37 | XMS_ITS | Encounter Summary ---
Author Organization [facility] Address [address] [place] [address] Phone Care Team Providers Care Hazardous Waste Remover Name Role Phone Brady Chen MD Unavailable [phone] Monserrat Pierre MD Unavailable [phone] Jacky Duff MD Primary Care Provider Rikki Pedraza MD PhD Unavailable [phone] Ag Steven MD Unavailable [phone] Stanford Gannon MD Unavailable [phone] Ag Steven MD Unavailable [phone] Encounter Details Date Type Department Care Team (Latest Contact Info) Description 11/26/2019 Orders Only [facility] Scanning, Provider [...] on file Legal Sex Female 3:04 AM STUDIO RECEPTIONIST Gender Identity Female 08/22/2019 1:31 PM CDT Sexual Orientation Not on file documented as of this encounter Plan of Treatment Not on file documented as of this encounter Procedures Procedure Name Priority Date/Time Associated Diagnosis Comments SCAN - RADIOLOGY/IMAGING 11/26/2019 documented in this encounter Results * SCAN - RADIOLOGY/IMAGING (11/26/2019) Anatomical Region Laterality Modality Other us Provider Scanning Final Result documented in this encounter Visit Diagnoses Not on filedocumented in this encounter Care Teams Hazardous Waste Remover Relationship Specialty Start Date End Date Jacky Duff MD [address]43 [facility] [address] [place] [address] PCP - General Internal Medicine 02/05/19 Brady Chen MD Medical Oncologist/Hematologis t Hematology and Oncology 06/07/18 11/22/21 Monserrat Pierre MD Referring Physician Cardiothoracic Surgery 10/09/18 Rikki Pedraza MD PhD [address] [place] [address] MEDICAL ONCOLOGY, [address] [address] Consulting Physician Medical Oncology 11/23/21 Ag Steven MD [address] [place] [address] MEDICAL ONCOLOGY, [facility] [address] [place], [place] [address] Radiation Oncologist Radiation Oncology 02/05/23 Stanford Gannon MD [address] [address] Surgeon Pulmonary Disease 02/05/23 Ag Steven MD [address] [place] [address] [address] [place], [place] [id number] Radiation Oncologist Radiation Oncology 01/03/24 documented as of this encounter
--- OUTSIDE RECORDS SUMMARY | 2025-01-30 09:37 | XMS_ITS | Encounter Summary ---
Author Organization [facility] Address [address] [place] [address] Phone Care Team Providers Care Pneumatic Hoist Operator Name Role Phone Monserrat Pierre MD Unavailable [phone] Jacky Duff MD Primary Care Provider Rikki Pedraza MD PhD Unavailable Stanford Gannon MD Unavailable [phone] Ag Steven MD Unavailable [phone] Encounter Details Date Type Department Care Team (Late st Contact Info) Description 06/30/2024 Telephone [facility] Oncology [facility] [address] [place] [address] Alyssa Rush Social History Tobacco Use Types Packs/Day Years [...] on file Legal Sex Female 3:04 AM SUBWAREHOUSE SUPERVISOR Gender Identity Female 08/22/2019 1:31 PM CDT Sexual Orientation Not on file documented as of this encounter Plan of Treatment Not on file documented as of this encounter Visit Diagnoses Not on filedocumented in this encounter Care Teams Pneumatic Hoist Operator Relationship Specialty Start Date End Date Jacky Duff MD 2043 [facility] 23 [facility] 23 [place] [address] PCP - General Internal Medicine 02/05/19 Monserrat Pierre MD Referring Physician Cardiothoracic Surgery 10/09/18 Rikki Pedraza MD PhD 1418 [facility] 180 [place] [address] Consulting Physician Medical Oncology 11/23/21 Stanford Gannon MD 4600 [facility] 200 [place] [address] Surgeon Pulmonary Disease 02/05/23 Ag Steven MD 1418 [facility] 160 [place], [place] [address] Radiation Oncologist Radiation Oncology 01/03/24 documented as of this encounter
--- NOTE | 2025-01-30 11:15 | PC.NURSE ---
This RN called Farnaz AGUILAR in [place] and gave nurse to nurse report to Jero at this time, JEFF is aware of pt diagnosis and POC.
[2025-01-30] MEDS: SODIUM CHLORIDE 0.9% IV 1,000 ML 125 ML IV CONT ×2 (11:26→22:14)
--- NOTE | 2025-01-30 11:28 | ED_ITS ---
HPI - Altered Mental Status General Chief Complaint: Altered Mental Status Stated Complaint: ALOC Time Seen by Provider: 01/30/25 08:57 Source: EMS and RN notes reviewed Mode of arrival: EMS Limitations: dementia History of Present Illness HPI narrative: 74-year-old with a history of hypertension, diabetes, dementia, CVA was sent from [facility] for altered mental status as per the mass and nursing report patient is A&O x1. She has been quite lethargic since this morning. Not much of history can be obtained from the patient. Related Data Home Medications ?Medication ?Instructions ?Recorded ?Confirmed ?Last Taken ?Type baclofen 10 mg tablet 10 mg PO TID PRN Hiccups 09/23/19 09/17/24 01/21/20 History metformin 500 mg tablet 500 mg PO BID 09/23/19 09/17/24 01/21/20 History omeprazole 40 mg capsule,delayed 40 mg PO DAILY 09/23/19 09/17/24 01/21/20 History release vitamin B complex 1 cap PO BID 09/23/19 09/17/24 01/21/20 History allopurinol 100 mg tablet 300 mg PO DAILY 01/21/20 09/17/24 Unknown History apixaban 5 mg tablet (Eliquis) 5 mg PO BID 01/21/20 09/17/24 03/18/21 History acetaminophen 500 mg tablet 500 mg PO Q6H PRN Pain (Scale 02/18/23 09/17/24 Unknown History Score 1-3) albuterol sulfate 90 mcg/actuation 2 puff inhalation Q6H PRN 02/18/23 09/17/24 Unknown History aerosol inhaler (Ventolin HFA) Shortness Of Breath Or Wheezing fluticasone fur. 100 mcg-umeclid 1 inh inhalation DAILY 02/18/23 09/17/24 Unknown History 62.5 mcg-vilant 25 mcg inhalat.powder (Trelegy Ellipta) lisinopril 20 1 tablet PO HS 02/18/23 09/17/24 Unknown History mg-hydrochlorothiazide 12.5 mg tablet montelukast 10 mg tablet 10 mg PO DAILY 02/18/23 09/17/24 Unknown History calcium carbonate (Calcium 600) 600 mg PO DAILY 05/28/23 09/17/24 Unknown History carvedilol 6.25 mg tablet 6.25 mg PO Q12H 09/07/23 09/17/24 Unknown History Allergies Allergy/AdvReac Type Severity Reaction Status Date / Time diclofenac Allergy Severe sob Verified 07/12/24 17:18 Penicillins Allergy Intermediate Itching Verified 07/12/24 17:18 penicillin V Allergy Itching Verified 07/12/24 17:18 Review of Systems 2 Review of Systems: ROS unobtainable: Yes unobtainable due to mental status (Dementia) [facility] Past Medical History Medical History GERD without esophagitis Pure hypercholesterolemia, unspecified Neuropathy Gout ESR raised ESR raised Inflammatory arthritis Adenomatous colon polyp Osteoarthritis of left knee History of chemotherapy Hx of radiation therapy Shingles Neutropenia Arthritis Lung cancer DVT (deep venous thrombosis) Peripheral neuropathy Diabetes last A1C=5.9 (10/2019) Hx of pulmonary embolus on Elliquis Sleep apnea Obesity Cancer lung and lymphnodes 2012 and 2014 COPD (chronic obstructive pulmonary disease) uses inhaler, right upper lobe removed lung cancer 2012;lower lobe and lymphnodes 2014 Hypercholesterolemia HTN (hypertension) CVA (cerebral vascular accident) 06/2018 TPA administered and rehab-pt states now no residual effect Surgical History Surgical History History of total right knee replacement (TKR) partial knee; Dr Power History of dilatation and curettage History of endoscopy History of removal of Port-a-Cath History of right knee joint replacement 2014 Hx of total hysterectomy History of esophagogastroduodenoscopy (EGD) Hx of colonoscopy Hx of cholecystectomy Hx of tonsillectomy History of lobectomy of lung Family History Family History Mother Carcinoma of colon Cerebrovascular accident Father Family history of heart disease in male family member before age 55 Sibling Family history of hypercholesterolemia Hypertension Glaucoma Other Family history of lung cancer Family history of malignant neoplasm of bone Family history of malignant neoplasm of urinary bladder Social History Social History Social History: She is . She has no children. Her sister is her poa. She is Retired from banking. She denies alcohol use and marjuana. She lives at [facility]. Code status listed as Full Code on SNF facility; previously noted to be modified code no intubation per emr. Smoking packs per day: 1 Smoking cigarettes per day: 20.0 Years smoked: 30 Smoking pack-years: 30.00 Smoking status: Former smoker Second hand tobacco smoke exposure: Yes Alcohol intake: never Substance use: never Substance use type: does not use Do You Feel Safe in your Home?: Yes Lack of Transportation: No Lack of Food: Never True Current Housing: I Have Housing Concerned About Future Housing: No Difficulty Paying Gas/Electric Bills: No Difficulty Paying for Meds: No Currently Unemployed: No Education: High School Diploma/GED Difficulty w/ Childcare or Family Care: No Living arrangements: alone Gender identity (if verbalized by the patient): Female Spiritual care concerns: No Agree to blood products: Yes Exam 2 Narrative: GENERAL: illl-appearing, obese, and in no acute distress. HEAD: Normocephalic, atraumatic. EYES: PERRLA and EOMI. ENT: Nares clear, no rhinorrhea or epistaxis. Mucous membranes moist. NECK: Supple. CHEST: Clear to auscultation. No respiratory distress. HEART: Regular rate and rhythm. No murmur heard. Normal peripheral pulses. ABDOMEN: Soft, nontender, nondistended, normal active bowel sounds. EXTREMITIES: Normal range of motion. No edema. SKIN: Warm, dry, no rash. NEURO: No focal deficits. Alert. Course Course Emergency Course: No interval change in physical. I reviewed her lab work is occasionally urine cultures from the previous admissions she had lab pneumonia in the urine which is sensitive to ceftriaxone. With will admit her to the hospital for JOSE ALBERTO continue to hydrate and started IV antibiotic. I discussed with Dr. Alonso accepted the patient Vital Signs Vital signs: Vital Signs Temperature 36.3 C L 01/30/25 08:37 Pulse Rate 89 01/30/25 08:37 Respiratory Rate 20 01/30/25 08:37 Blood Pressure 92/58 L 01/30/25 08:37 Pulse Oximetry 92 01/30/25 08:37 Oxygen Delivery Room Air 01/30/25 08:37 Temperature 36.3 C L 01/30/25 08:37 Pulse Rate 108 H 01/30/25 11:12 Respiratory Rate 16 01/30/25 11:12 Blood Pressure 122/74 01/30/25 11:12 Pulse Oximetry 93 01/30/25 11:12 Oxygen Delivery Room Air 01/30/25 08:58 MDM - Altered Mental Status Lab Data 01/30/25 09:02 01/30/25 09:02 Labs: Lab Results 01/30/25 01/30/25 Range/Units 09:02 09:13 WBC 7.4 (4.5-10.0) K/mm3 RBC 3.91 L (4.2-5.4) M/mm3 Hgb 12.0 (12.0-15.0) g/dL Hct 38.8 (37.0-47.0) % MCV 99.2 (80-100) fl MCH 30.7 (26-34) pg MCHC 30.9 L (32-36) g/dl RDW 15.3 H (11.5-14.5) % Plt Count 259 (150-375) k/mm3 MPV 9.7 (7.4-10.4) fl Immature Gran % (Auto) 2.0 H (0-0.5) % Neut % (Auto) 70.1 (45.5-73.1) % Lymph % (Auto) 17.1 L (18.3-44.2) % [place] % (Auto) 8.6 H (2.6-8.5) % Eos % (Auto) 1.8 (0-4.4) % Baso % (Auto) 0.4 (0.2-1.2) % Lymph # (Auto) 1.27 (0.9-3.2) K/mm3 [place] # (Auto) 0.6 (0.1-0.6) K/mm3 Eos # (Auto) 0.1 (0-0.3) K/mm3 Baso # (Auto) 0.0 (0.0-0.1) K/mm3 Abs Immat Gran (auto) 0.15 H (0.00-0.031) K/mm3 Absolute Neuts (auto) 5.2 (1.3-6.7) K/mm3 Absolute Nucleated RBC 0.000 (0.0-0.012) K/mm3 Nucleated RBC % 0.0 (0.0-0.2) % PT 16.4 H (11.1-14.7) Seconds INR 1.3 APTT 38.7 H (22.3-36.8) Seconds Sodium 138 (137-145) mmol/L Potassium 4.9 (3.4-5.0) mmol/L Chloride 101 (98-107) mmol/L Carbon Dioxide 30 (22-30) mmol/L Anion Gap 7 (4-12) mmol/L BUN 34 H D (7-17) mg/dL Creatinine 2.30 H (0.7-1.0) mg/dL Estim Creat Clear Calc 21 ml/min Estimated GFR 21 L (59 - ) Glucose 98 (65-110) mg/dL Calcium 9.4 (8.4-10.2) mg/dL Total Bilirubin 0.3 (0.2-1.3) mg/dL AST 38 H (14-36) U/L ALT 22 (6-35) U/L Alkaline Phosphatase 149 H (38-126) U/L Total Protein 7.0 (6.3-8.2) g/dL Albumin 3.5 (3.5-5.1) g/dL Urine Color Dark yellow (Yellow) Urine Appearance Turbid H (Clear) Urine pH 5.5 (5.0-9.0) Ur Specific [place] 1.016 (1.001-1.035) Urine Protein 1+ H (Negative) mg/dL Urine Glucose (UA) Negative (Negative) mg/dL Urine Ketones Trace H (Negative) mg/dL Ur Blood (Man) Non-hemolyzed trace H (Negative) Urine Nitrate Positive H (Negative) Urine Bilirubin Negative (Negative) Urine Urobilinogen 0.2 (<2.0) mg/dL Add Ur Microanalysis Reviewed Leukocyte Esterase Rfl 3+ H (Negative) JARRETT/UL Urine RBC 0-2 (0-2) /hpf Urine WBC >100 H (0-3) /hpf Ur Squamous Epith Cells Occasional (Few) /hpf Urine Bacteria 4+ H /hpf Urine Casts >20 Discharge Plan Discharge Clinical Impression: JOSE ALBERTO (acute kidney injury), Acute UTI Altered mental status Qualifiers: Altered mental status type: unspecified Qualified Code(s): R41.82 - Altered mental status, unspecified Patient Disposition: Still a Patient Condition: Stable Patient Language: Maltese Prescriptions: No Action carvedilol 6.25 mg tablet 6.25 mg PO Q12H Rx Instructions: must administer with a meal/food calcium carbonate [Calcium 600] 600 mg calcium (1,500 mg) tablet 600 mg PO DAILY metformin 500 mg tablet 500 mg PO BID omeprazole 40 mg capsule,delayed release(DR/EC) 40 mg PO DAILY baclofen 10 mg tablet 10 mg PO TID PRN (Reason: Hiccups) vitamin B complex Capsule 1 cap PO BID Eliquis 5 mg Tablet 5 mg PO BID allopurinol 100 mg tablet 300 mg PO DAILY Patient Comments: new prescription lisinopril-hydrochlorothiazide 20-12.5 mg tablet 1 tablet PO HS montelukast 10 mg tablet 10 mg PO DAILY Trelegy Ellipta 100-62.5-25 mcg blister with device 1 inh INHALATION DAILY acetaminophen 500 mg Tablet 500 mg PO Q6H PRN (Reason: Pain (Scale Score 1-3)) albuterol sulfate [Ventolin HFA] 90 mcg/actuation HFA aerosol inhaler 2 puff INHALATION Q6H PRN (Reason: Shortness Of Breath Or Wheezing) vancomycin 125 mg Capsule 125 mg PO Q6HR Qty: 12 0RF cefdinir 300 mg Capsule 300 mg PO Q12HR Qty: 3 0RF guaifenesin [Mucus Relief ER] 600 mg Tablet Extended Release 12hr 1,200 mg PO Q12HR Qty: 60 0RF atorvastatin 10 mg Tablet 10 mg PO DAILY Qty: 30 0RF Follow-up/Referrals: Omega,Jacky Segura MD [Primary Care Provider] - Time of Disposition: 11:36
--- NOTE | 2025-01-30 12:25 | P.HP_ITS ---
H&P: HPI History of Present Illness Date/Time: 01/30/25 12:25 Chief Complaint: AMS Narrative: Patient is a 74-year-old female who was sent to the emergency department via EMS by [facility] L[facility] of [facility] where patient resides for altered mental status, weakness, and low blood pressure. Limited information available due to patient's mental status unable to answer questions attempted to reach out to her sister Zoë to discuss patient's mental baseline patient has been bed ridden for about a year now per her sister and would respond with 1 word sentences. Per medical chart patient has a past medical history of GERD, arthritis, lung cancer, DVT PE, ANTONELLA, hypertension, and CVA. Initial findings in the emergency department should showed suspicion for MICHAEL with UA positive for nitrates, leukocytes, wbc's and bacteria as well as acute kidney injury creatinine at 2.30. I did order a CT head that did not show any acute intracranial process however since baseline unknown will get MRI. EKG showing sinus rhythm all other labs reviewed and unremarkable. Patient with some mild hypotension continued with IV fluids. She is admitted to medical unit for further evaluation and treatment altered mental status secondary to UTI acute kidney and acute kidney injury. Review of Systems Review of Systems: ROS unobtainable: Yes unobtainable due to mental status PMFSH Past Medical History Medical History GERD without esophagitis Pure hypercholesterolemia, unspecified Neuropathy Gout ESR raised ESR raised Inflammatory arthritis Adenomatous colon polyp Osteoarthritis of left knee History of chemotherapy Hx of radiation therapy Shingles Neutropenia Arthritis Lung cancer DVT (deep venous thrombosis) Peripheral neuropathy Diabetes last A1C=5.9 (10/2019) Hx of pulmonary embolus on Elliquis Sleep apnea Obesity Cancer lung and lymphnodes 2012 and 2014 COPD (chronic obstructive pulmonary disease) uses inhaler, right upper lobe removed lung cancer 2012;lower lobe and lymphnodes 2014 Hypercholesterolemia HTN (hypertension) CVA (cerebral vascular accident) 06/2018 TPA administered and rehab-pt states now no residual effect Surgical History Surgical History History of total right knee replacement (TKR) partial knee; Dr Power History of dilatation and curettage History of endoscopy History of removal of Port-a-Cath History of right knee joint replacement 2014 Hx of total hysterectomy History of esophagogastroduodenoscopy (EGD) Hx of colonoscopy Hx of cholecystectomy Hx of tonsillectomy History of lobectomy of lung Family History Family History Mother Carcinoma of colon Cerebrovascular accident Father Family history of heart disease in male family member before age 55 Sibling Family history of hypercholesterolemia Hypertension Glaucoma Other Family history of lung cancer Family history of malignant neoplasm of bone Family history of malignant neoplasm of urinary bladder Social History Social History Social History: She is . She has no children. Her sister is her poa. She is Retired from banking. She denies alcohol use and marjuana. She lives at [facility]. Code status listed as Full Code on SNF facility; previously noted to be modified code no intubation per emr. Smoking packs per day: 1 Smoking cigarettes per day: 20.0 Years smoked: 30 Smoking pack-years: 30.00 Smoking status: Unknown if ever smoked Second hand tobacco smoke exposure: Yes Alcohol intake: unknown Substance use: unknown Substance use type: unknown Do You Feel Safe in your Home?: Yes Lack of Transportation: No Lack of Food: Never True Current Housing: I Have Housing Concerned About Future Housing: No Difficulty Paying Gas/Electric Bills: No Difficulty Paying for Meds: No Currently Unemployed: No Education: High School Diploma/GED Difficulty w/ Childcare or Family Care: No Living arrangements: alone Gender identity (if verbalized by the patient): Female Spiritual care concerns: No Agree to blood products: Yes Meds Home Medications and Allergies Home Medications ?Medication ?Instructions ?Recorded ?Confirmed ?Type baclofen 10 mg tablet 10 mg PO TID PRN Hiccups 09/23/19 09/17/24 History metformin 500 mg tablet 500 mg PO BID 09/23/19 09/17/24 History omeprazole 40 mg capsule,delayed 40 mg PO DAILY 09/23/19 09/17/24 History release vitamin B complex 1 cap PO BID 09/23/19 09/17/24 History allopurinol 100 mg tablet 300 mg PO DAILY 01/21/20 09/17/24 History apixaban 5 mg tablet (Eliquis) 5 mg PO BID 01/21/20 09/17/24 History acetaminophen 500 mg tablet 500 mg PO Q6H PRN Pain (Scale 02/18/23 09/17/24 History Score 1-3) albuterol sulfate 90 mcg/actuation 2 puff inhalation Q6H PRN 02/18/23 09/17/24 History aerosol inhaler (Ventolin HFA) Shortness Of Breath Or Wheezing fluticasone fur. 100 mcg-umeclid 1 inh inhalation DAILY 02/18/23 09/17/24 History 62.5 mcg-vilant 25 mcg inhalat.powder (Trelegy Ellipta) lisinopril 20 1 tablet PO HS 02/18/23 09/17/24 History mg-hydrochlorothiazide 12.5 mg tablet montelukast 10 mg tablet 10 mg PO DAILY 02/18/23 09/17/24 History atorvastatin 10 mg tablet 10 mg PO DAILY #30 tabs 03/03/23 09/17/24 Rx calcium carbonate (Calcium 600) 600 mg PO DAILY 05/28/23 09/17/24 History carvedilol 6.25 mg tablet 6.25 mg PO Q12H 09/07/23 09/17/24 History cefdinir 300 mg capsule 300 mg PO Q12HR #3 caps 07/18/24 09/17/24 Rx guaifenesin 600 mg tablet, 1,200 mg (2 x 600 mg) PO Q12HR #60 07/18/24 09/17/24 Rx extended release 12 hr (Mucus tabs Relief ER) vancomycin 125 mg capsule 125 mg PO Q6HR #12 caps 07/18/24 09/17/24 Rx Allergies Allergy/AdvReac Type Severity Reaction Status Date / Time diclofenac Allergy Severe sob Verified 07/12/24 17:18 Penicillins Allergy Intermediate Itching Verified 07/12/24 17:18 penicillin V Allergy Itching Verified 07/12/24 17:18 Vital Signs Vital Signs - 24 hr 01/30/25 08:37 01/30/25 08:46 01/30/25 08:58 Temperature 97.4 F L Pulse Rate 89 85 Respiratory Rate 20 Blood Pressure 92/58 L Pulse Oximetry 92 93 Oxygen Delivery Room Air Room Air 01/30/25 09:55 01/30/25 10:45 01/30/25 11:12 Temperature Pulse Rate 99 105 H 108 H Respiratory Rate 16 16 16 Blood Pressure 105/54 L 122/60 122/74 Pulse Oximetry 94 96 93 Oxygen Delivery Exam Narrative: * GENERAL: Ill-appearing, in no acute distress. Well-nourished. Alert x 1 answered no to 2 questions, will track with eyes and follow commands * EYES: Anicteric. * HENT: dry mucous membranes. * LUNGS: Clear to auscultation bilaterally, no wheezing, rhonchi, or rales. * CARDIOVASCULAR: Regular rate and rhythm. No murmur. No JVD. Tachycardia * ABDOMEN: Soft, non-tender and non-distended. No palpable masses. * EXTREMITIES: No edema. Peripheral pulses 2+. Non-tender. * NEUROLOGIC: No focal neurological deficits. CN II-XII grossly intact. Moving all extremities strength equal bilateral * - PSYCHIATRIC: Unable to assess. * SKIN: No rashes or lesions. Warm. H&P: Results Labs Labs: Short CBC 01/30/25 Range/Units 09:02 WBC 7.4 (4.5-10.0) K/mm3 Hgb 12.0 (12.0-15.0) g/dL Hct 38.8 (37.0-47.0) % Plt Count 259 (150-375) k/mm3 BMP 01/30/25 09:02 Sodium 138 Potassium 4.9 Chloride 101 Carbon Dioxide 30 BUN 34 H D Creatinine 2.30 H Glucose 98 Calcium 9.4 Liver Function 01/30/25 Range/Units 09:02 Total Bilirubin 0.3 (0.2-1.3) mg/dL AST 38 H (14-36) U/L ALT 22 (6-35) U/L Alkaline Phosphatase 149 H (38-126) U/L Albumin 3.5 (3.5-5.1) g/dL Urine 01/30/25 Range/Units 09:13 Urine Color Dark yellow (Yellow) Urine Appearance Turbid H (Clear) Urine pH 5.5 (5.0-9.0) Ur Specific [place] 1.016 (1.001-1.035) Urine Protein 1+ H (Negative) mg/dL Urine Glucose (UA) Negative (Negative) mg/dL Imaging CT scan - head: Radiologist's impression: IMPRESSION: 1. Stable appearance of age-related changes including moderate diffuse volume loss and extensive white matter hypoattenuation consistent with chronic small vessel ischemic disease. No acute intracranial process. Assessment and Plan Assessment and plan (1) Altered mental status: Qualifiers: Altered mental status type: unspecified Qualified Code(s): R41.82 - Altered mental status, unspecified Code(s): R41.82 - Altered mental status, unspecified Status: Acute Assessment and Plan: Unknown baseline sister Zoë reported bedridden was able to feed self but would only answer with on word phrases currently nonverbal except for 2 no's. * CT head with no acute intracranial process * Could be secondary to urinary tract infection * Will still get MRI of brain patient with previous history of CVA (2) Acute UTI: Code(s): N39.0 - Urinary tract infection, site not specified Status: Acute Assessment and Plan: Patient presented with AMS and lethargy * UA nitrate+, Leukocyte, >100 WBC, 4+ bacteriuria * Past to urinary tract infection/Klebsiella pneumoniae and E coli both pansensitive except resistant to Macrobid * IV Rocephin pending cultures * Normal WBC and afebrile continue to monitor for any signs of sepsis (3) JOSE ALBERTO (acute kidney injury): Code(s): N17.9 - Acute kidney failure, unspecified Status: Acute Assessment and Plan: * Likely secondary to UTI and dehydration * Cr 2.30 POA * LR 125ML/HR * Avoid nephrotoxic drugs. * Monitor antihypertensive drug therapy. * Avoid NSAIDs. * Routine CMP monitoring GFR. * Monitor electrolytes especially potassium. * Antibiotic doses depending on creatinine clearance. (4) HTN (hypertension): Qualifiers: Hypertension type: unspecified Qualified Code(s): I10 - Essential (primary) hypertension Code(s): I10 - Essential (primary) hypertension Status: Chronic Assessment and Plan: * BP 122/74 * Will resume carvedilol * Would hold and discontinue her lisinopril and hydrochlorothiazide * BP per unit protocol (5) Diabetes mellitus with hyperglycemia: Code(s): E11.65 - Type 2 diabetes mellitus with hyperglycemia Status: Acute Assessment and Plan: * Accu-Cheks a.c. HS * sliding scale insulin * hold oral diabetic medications metformin * Hemoglobin A1c pending * Diabetic diet * Watch for hypoglycemia/hypoglycemic protocol ordered (6) GERD (gastroesophageal reflux disease): Code(s): K21.9 - Gastro-esophageal reflux disease without esophagitis Status: Acute Assessment and Plan: * added Protonix (7) COPD (chronic obstructive pulmonary disease): Qualifiers: COPD type: unspecified COPD Qualified Code(s): J44.9 - Chronic obstructive pulmonary disease, unspecified Code(s): J44.9 - Chronic obstructive pulmonary disease, unspecified Status: Chronic Assessment and Plan: * Stent appeared exacerbation on room air * Redo inhaler as needed Plan Unable to resume home medications at time of admission waiting on reconciliation Code status: Full code per patient DVT prophylaxis: Elisquis Stress ulcer prophylaxis: Protonix 40 daily PT/OT notes: Pending Disposition: Patient admitted to the medical unit for altered mental status likely secondary to urinary tract infection as well as acute kidney injury CT head negative for acute cranial process MRI pending. Patient currently lives at [facility] plan will be to return when medically stable. Quality VTE Prophylaxis VTE prophylaxis: mechanical ordered and pharmacologic ordered -Patient's previous records reviewed on admission -ER notes reviewed in detail on admission -discussed all findings and current treatment plan with patient/Family/POA -Consultations reviewed for recommendations -Patient's disposition for safe discharge discussed with case specialist Dictation performed by [employer] direct speech recognition software, therefore lining machine tender variants and typographical errors may occur. Hospitalist [facility] Advance Care Plan I have confirmed that the patient's Advanced Care Plan is present, code status is documented, or surrogate decision maker is listed in patient medical record.: Yes Medication Reconciliation I have utilized all available resources to obtain, update and review the patients current medications (includes all prescriptions, OTC, herbals, cannabis, and nutritional supplements).: Yes The patient is not eligible for med reconciliation; the patient is in a emergent medical situation where delaying treatment would jeopardize the patients health.: No
--- NOTE | 2025-01-30 13:10 | ADMGEN ---
This patient, Zoe Hogue Dia, was admitted to [facility] Surg Room 307-01. Patient/family oriented to hospital policies and general routines including ID bracelet, bed and alarms, visiting hours, pain management, procedures, bathroom and other care routines, personal items, smoking policy, room service/diet, and visiting hours. Information on how to activate the Rapid Response Team has been discussed. Patient/Family are encouraged to report perceived risks to care and to ask questions if they do not understand what they are told or what they should do.
[2025-01-30 14:16] LABS: Hemoglobin A1C 5.8 % (<5.7)
[2025-01-30 16:15] LABS: Glucose Point of Care 90 mg/dl (65-105)
[2025-01-30 21:59] LABS: Glucose Point of Care 81 mg/dl (65-105)
[2025-01-31 05:34] VITALS: BP 95/48; PULSE 104; RESP 17; TEMP 36.3; O2SAT 93
[2025-01-31 06:19] LABS: Basophils Percent Auto 0.5 % (0.2-1.2); Eosinophils Absolute Auto 0.1 K/mm3 (0-0.3); Eosinophils Percent Auto 1.7 % (0-4.4); Hematocrit 34.6 % (37.0-47.0); Hemoglobin 11.2 g/dL (12.0-15.0); Immature Granulocyte Absolute 0.05 K/mm3 (0.00-0.031); Immature Granulocyte Percent A 0.7 % (0-0.5); Lymphocytes Absolute Auto 1.21 K/mm3 (0.9-3.2); Lymphocytes Percent Auto 16.2 % (18.3-44.2); Mean Corpuscular HGB Conc 32.4 g/dl (32-36); Mean Corpuscular Hemoglobin 31.9 pg (26-34); Mean Corpuscular Volume 98.6 fl (80-100); Mean Platelet Volume 9.4 fl (7.4-10.4); Monocytes Absolute Auto 0.7 K/mm3 (0.1-0.6); Monocytes Percent Auto 9.1 % (2.6-8.5); Neutrophils Absolute Auto 5.4 K/mm3 (1.3-6.7); Neutrophils Percent Auto 71.8 % (45.5-73.1); Platelet Count Result 264 k/mm3 (150-375); Red Blood Count 3.51 M/mm3 (4.2-5.4); White Blood Count 7.5 K/mm3 (4.5-10.0)
[2025-01-31 06:38] LABS: Alanine Aminotransferase 18 U/L (6-35); Albumin Level 2.9 g/dL (3.5-5.1); Alkaline Phosphatase 126 U/L (38-126); Anion Gap 8 mmol/L (4-12); Aspartate Amino Transferase 31 U/L (14-36); Bilirubin,Total 0.3 mg/dL (0.2-1.3); Blood Urea Nitrogen 19 mg/dL (7-17); Calcium 7.9 mg/dL (8.4-10.2); Carbon Dioxide 24 mmol/L (22-30); Chloride 106 mmol/L (98-107); Estimated CRCL calculation 47 ml/min; Estimated Glomerular Filt Rate 56; Glucose 70 mg/dL (65-110); Potassium 4.2 mmol/L (3.4-5.0); Sodium 138 mmol/L (137-145)
[2025-01-31 08:04] LABS: Glucose Point of Care 68 mg/dl (65-105)
[2025-01-31] MEDS: DEXTROSE 50% 25 GM/50 ML SYRINGE IV PUSH (08:12)
[2025-01-31 08:37] LABS: Magnesium 1.1 mg/dL (1.6-2.3); Phosphorus 2.8 mg/dL (2.5-4.5)
[2025-01-31 08:38] LABS: Glucose Point of Care 136 mg/dl (65-105)
[2025-01-31] MEDS: DEXTROSE 5%/0.45% SOD CHL 1,000 ML 100 ML IV CONT (09:35)
[2025-01-31] MEDS: MAGNESIUM SULF 4 GM/WATER100ML 4 GM/100 ML BAG IVPB (09:47)
[2025-01-31 12:04] LABS: Glucose Point of Care 137 mg/dl (65-105)
--- NOTE | 2025-01-31 12:32 | P.PNIM_ITS ---
Progress Note: A&P Assessment and Plan (1) Altered mental status: Qualifiers: Altered mental status type: unspecified Qualified Code(s): R41.82 - Altered mental status, unspecified Code(s): R41.82 - Altered mental status, unspecified Status: Acute Assessment and Plan: Unknown baseline sister Zoë reported bedridden was able to feed self but would only answer with on word phrases currently nonverbal except for 2 no's. * CT head with no acute intracranial process * Could be secondary to urinary tract infection * MRI of brain today showed: FINDINGS: There are scattered areas of nonspecific increased T2-weighted signal intensity in the cerebral white matter and adrian. There is no intracranial hemorrhage, acute infarction, or abnormal intracranial mass lesion. The ventricles are normal in size. There are bilateral mastoid effusions. There is mild mucosal thickening in the paranasal sinuses. The orbits are normal. IMPRESSION: 1. Worsened extensive nonspecific cerebral white matter disease and pontine disease, which likely represents chronic small vessel ischemic disease. (2) Acute UTI: Code(s): N39.0 - Urinary tract infection, site not specified Status: Acute Assessment and Plan: Patient presented with AMS and lethargy * UA nitrate+, Leukocyte, >100 WBC, 4+ bacteriuria * Past to urinary tract infection/Klebsiella pneumoniae and E coli both pansensitive except resistant to Macrobid * IV Rocephin pending cultures * Normal WBC and afebrile continue to monitor for any signs of sepsis * Urine culture grew E coli, await sensitivities. (3) JOSE ALBERTO (acute kidney injury): Code(s): N17.9 - Acute kidney failure, unspecified Status: Acute Assessment and Plan: * Likely secondary to UTI and dehydration * Creatinine improved from 2.30>0.97. * NS @ 75 ml/hr. * Avoid nephrotoxic drugs. * Monitor antihypertensive drug therapy. * Avoid NSAIDs. * Routine CMP monitoring GFR. * Monitor electrolytes especially potassium. * Antibiotic doses depending on creatinine clearance. (4) HTN (hypertension): Qualifiers: Hypertension type: unspecified Qualified Code(s): I10 - Essential (primary) hypertension Code(s): I10 - Essential (primary) hypertension Status: Chronic Assessment and Plan: * BP 117/47. * Would hold and discontinue her lisinopril and hydrochlorothiazide * BP per unit protocol (5) Diabetes mellitus with hyperglycemia: Code(s): E11.65 - Type 2 diabetes mellitus with hyperglycemia Status: Acute Assessment and Plan: * Accu-Cheks a.c. HS * sliding scale insulin * hold oral diabetic medications metformin * Hemoglobin A1c pending * Diabetic diet * Watch for hypoglycemia/hypoglycemic protocol ordered (6) GERD (gastroesophageal reflux disease): Code(s): K21.9 - Gastro-esophageal reflux disease without esophagitis Status: Acute Assessment and Plan: * added Protonix (7) COPD (chronic obstructive pulmonary disease): Qualifiers: COPD type: unspecified COPD Qualified Code(s): J44.9 - Chronic obstructive pulmonary disease, unspecified Code(s): J44.9 - Chronic obstructive pulmonary disease, unspecified Status: Chronic Assessment and Plan: * Stent appeared exacerbation on room air * Redo inhaler as needed (8) Hypomagnesemia: Code(s): E83.42 - Hypomagnesemia Status: Acute Assessment and Plan: * Magnesium 1.1. * Patient given Magnesium Sulfate 4 gram IVPB x1. * Trend magnesium levels. Plan Unable to resume home medications at time of admission waiting on reconciliation Code status: Full code per patient DVT prophylaxis: Eliquis Stress ulcer prophylaxis: Protonix 40 daily PT/OT notes: Pending Disposition: Patient admitted to the medical unit for altered mental status likely secondary to urinary tract infection as well as acute kidney injury CT head negative for acute cranial process MRI pending. Patient currently lives at [facility] plan will be to return when medically stable. Subjective Date/time seen: 01/31/25 12:32 Interval history: Patient sitting up in bed. Patient denies chest pain, palpitations, headache, dizziness, nausea, or vomiting. Review of Systems Review of Systems: All systems reviewed & are unremarkable except as noted in HPI and below Exam Const: General: comfortable and no acute distress Resp: Effort & Inspection: normal respiratory effort Auscultation: clear to auscultation bilaterally Cardio: Rate: regular rate Rhythm: regular rhythm GI: GI Palp: Yes Soft to palpation Auscultation: normal bowel sounds Neuro: Other: Oriented to self. Speaking in short sentences. Extrem: General: no pedal edema Psych: Affect: normal affect Objective Data Vital Signs Vital Signs: Vital Signs - 24 hr 01/30/25 13:41 01/30/25 13:44 01/30/25 13:52 Temperature 98.6 F 97.6 F Pulse Rate 107 H 97 Respiratory Rate 14 14 Blood Pressure 90/60 L 90/60 L Pulse Oximetry 97 97 97 Oxygen Delivery Room Air 01/30/25 21:53 01/31/25 05:34 Temperature 97.0 F L 97.4 F L Pulse Rate 101 H 104 H Respiratory Rate 17 17 Blood Pressure 113/48 L 95/48 L Pulse Oximetry 100 93 Oxygen Delivery Intake/Output Intake/Output: Intake & Output 01/28/25 01/29/25 01/30/25 01/31/25 23:59 23:59 23:59 23:59 Intake Total 2050 Output Total 800 700 Balance 1250 -700 Meds/Results Medications: Active Medications Generic Name Dose Route Start Last Admin Trade Name Freq PRN Reason Stop Dose Admin Acetaminophen 650 mg 01/30/25 10:57 Acetaminophen 325 Mg Tablet PO Q4H PRN Mild Pain (1-3) or Fever Albuterol 2 puff 01/31/25 11:39 Albuterol Sulfate (*Sp) Aerosol 1 Puff INHALATION Q6H PRN Shortness Of Breath Or Wheezing Allopurinol 300 mg 02/01/25 09:00 Allopurinol 300 Mg Tablet PO DAILY [facility] Apixaban 5 mg 01/31/25 17:00 Apixaban 5 Mg Tablet PO BID [facility] Atorvastatin Calcium 10 mg 02/01/25 09:00 Atorvastatin 10 Mg Tablet PO DAILY RADHA Baclofen 10 mg 01/31/25 11:39 Baclofen 10 Mg Tablet PO TID PRN Hiccups Calcium Carbonate 500 mg 02/01/25 09:00 Calcium Carbonate (Oscal) 500 Mg Tablet PO QAM [facility] Dextrose 12.5 gm 01/30/25 12:43 01/31/25 08:12 Dextrose 50% 25 Gm/50 Ml Syringe IV PUSH 12.5 gm PRN PRN Administration Hypoglycemia Protocol Docusate Sodium 100 mg 01/31/25 17:00 Docusate Sodium 100 Mg Capsule PO BID [facility] Glucagon 1 mg 01/30/25 12:43 Glucagon For Inj 1 Mg Vial IM PRN PRN Hypoglycemia Protocol Glucose 15 gm 01/30/25 12:43 Glucose Oral Gel 15 Gm Of Glucse In 37.5 Gm Tube PO PRN PRN Hypoglycemia Protocol Ceftriaxone Sodium 1 gm in 50 mls @ 100 mls/hr 01/31/25 11:00 Rocephin 1 Gm/Ns 50 Ml IVPB Q24H RADHA Dextrose 1,000 mls @ 100 mls/hr 01/30/25 12:43 Dextrose 5% 1,000 Ml IVPB PRN PRN Hypoglycemia Protocol Dextrose/Sodium Chloride 1,000 mls @ 100 mls/hr 01/31/25 08:25 01/31/25 09:35 Dextrose 5% Sodium Chloride 0.45% IV CONT 100 mls/hr .Q10H RADHA Administration Magnesium Sulfate 4 gm in 100 mls @ 25 mls/hr 01/31/25 09:10 01/31/25 09:47 Magnesium Sulf 4 Gm/[id number] IVPB 01/31/25 13:09 25 mls/hr ONCE ONE Administration Insulin Aspart 2 - 5 units 01/30/25 17:00 01/31/25 08:09 Insulin Aspart (*Bk) 100 Units/Ml SUB-Q Not Given TIDWM [facility] Protocol Magnesium Oxide 400 mg 02/01/25 09:00 Magnesium Oxide 400 Mg Tablet PO DAILY [facility] Montelukast Sodium 10 mg 02/01/25 09:00 Montelukast Sodium 10 Mg Tablet PO DAILY [facility] Ondansetron HCl 4 mg 01/30/25 12:21 Ondansetron Inj 4 Mg/2 Ml Vial IV PUSH Q6H PRN Nausea And Vomiting Pantoprazole Sodium 40 mg 01/30/25 12:50 01/31/25 09:51 Pantoprazole 40 Mg Tablet PO Not Given QAM [facility] Saccharomyces Boulardii 250 mg 01/31/25 17:00 Saccharomyces Boulardii 250 Mg Capsule PO BID [facility] Fluticasone/Salmeterol 2 puff 01/31/25 20:00 Fluticasone/Salmeterol 115-21 Mcg Inhaler 1 Puff INHALATION Q12HRT [facility] Sertraline HCl 25 mg 02/01/25 09:00 Sertraline Hcl 25 Mg Tablet PO DAILY [facility] Vitamin B Complex 1 cap 01/31/25 17:00 Vitamin B Complex Capsule PO BID [facility] Vitamin D 5,000 units 02/01/25 09:00 Cholecalciferol 5,000 Units Tablet BY MOUTH DAILY [facility] Radiology Results: ITS Impressions Head CT 01/30/25 12:53 IMPRESSION: 1. Stable appearance of age-related changes including moderate diffuse volume loss and extensive white matter hypoattenuation consistent with chronic small vessel ischemic disease. No acute intracranial process. Brain MRI 01/31/25 07:45 IMPRESSION: 1. Worsened extensive nonspecific cerebral white matter disease and pontine disease, which likely represents chronic small vessel ischemic disease. Labs Labs: Laboratory Results - last 24 hr 01/30/25 01/30/25 01/30/25 09:01 16:13 21:56 WBC RBC Hgb Hct MCV MCH MCHC RDW Plt Count MPV Immature Gran % (Auto) Neut % (Auto) Lymph % (Auto) Arthur % (Auto) Eos % (Auto) Baso % (Auto) Lymph # (Auto) Arthur # (Auto) Eos # (Auto) Baso # (Auto) Abs Immat Gran (auto) Absolute Neuts (auto) Absolute Nucleated RBC Nucleated RBC % Sodium Potassium Chloride Carbon Dioxide Anion Gap BUN Creatinine Estim Creat Clear Calc Estimated GFR Glucose POC Capillary Glucose 90 81 Hemoglobin A1c 5.8 H Calcium Phosphorus Magnesium Total Bilirubin AST ALT Alkaline Phosphatase Total Protein Albumin 01/31/25 01/31/25 01/31/25 06:11 08:00 08:36 WBC 7.5 RBC 3.51 L Hgb 11.2 L Hct 34.6 L MCV 98.6 MCH 31.9 MCHC 32.4 RDW 15.0 H Plt Count 264 MPV 9.4 Immature Gran % (Auto) 0.7 H Neut % (Auto) 71.8 Lymph % (Auto) 16.2 L Arthur % (Auto) 9.1 H Eos % (Auto) 1.7 Baso % (Auto) 0.5 Lymph # (Auto) 1.21 Arthur # (Auto) 0.7 H Eos # (Auto) 0.1 Baso # (Auto) 0.0 Abs Immat Gran (auto) 0.05 H Absolute Neuts (auto) 5.4 Absolute Nucleated RBC 0.000 Nucleated RBC % 0.0 Sodium 138 Potassium 4.2 Chloride 106 Carbon Dioxide 24 Anion Gap 8 BUN 19 H D Creatinine 0.97 Estim Creat Clear Calc 47 Estimated GFR 56 L Glucose 70 POC Capillary Glucose 68 136 H Hemoglobin A1c Calcium 7.9 L Phosphorus 2.8 Magnesium 1.1 L Total Bilirubin 0.3 AST 31 ALT 18 Alkaline Phosphatase 126 Total Protein 6.0 L Albumin 2.9 L 01/31/25 12:02 WBC RBC Hgb Hct MCV MCH MCHC RDW Plt Count MPV Immature Gran % (Auto) Neut % (Auto) Lymph % (Auto) Arthur % (Auto) Eos % (Auto) Baso % (Auto) Lymph # (Auto) Arthur # (Auto) Eos # (Auto) Baso # (Auto) Abs Immat Gran (auto) Absolute Neuts (auto) Absolute Nucleated RBC Nucleated RBC % Sodium Potassium Chloride Carbon Dioxide Anion Gap BUN Creatinine Estim Creat Clear Calc Estimated GFR Glucose POC Capillary Glucose 137 H Hemoglobin A1c Calcium Phosphorus Magnesium Total Bilirubin AST ALT Alkaline Phosphatase Total Protein Albumin Quality VTE Prophylaxis VTE prophylaxis: mechanical ordered and pharmacologic ordered
--- NOTE | 2025-01-31 12:34 | PCSTNOTE ---
Please refer to the Bedside Swallow Evaluation in the EMR. Please note, silent aspiration cannot be ruled out at bedside. This 74 year old female was admitted to [facility] on 01/30/25 due to altered mental status. The pt has a history of a stroke from 06/2018 as well as dementia. The pt is reported to be A&Ox1 and has a UTI that could be a contributing factor to the pts confusion and AMS. The pts RN, Tanna, stated that the RNs from yesterday made the pt NPO following coughing/choking after attempting pill intake. The pt is able to follow simple 1-step directions, but primarily answers questions in 1-word responses. The pt was evaluated at bedside to ensure swallowing safety during oral intake. An oral mechanism exam was completed and the pt demonstrates appropriate range of mobility and strength for oral intake. The pt has all of her teeth and has no trouble masticating. Trials of thin liquid (ice/water), mixed consistency (fruit cocktail), puree (pudding), and solids (lula cracker) were administered at bedside via spoon and straw. During the trials of thin liquids via straw, mixed consistency, and solid consistency, the pt demonstrated a cough during or after the trial and exhibited a wet vocal quality. Delayed triggering of the swallow was noted. On trials of puree and mildly thickened liquids the pts oral transit was timely. No oral residue observed. Laryngeal elevation was adequate and timely on all swallows. Please note that silent aspiration cannot be ruled out at bedside. Given the results of this assessment, it is recommended this pt receive an oral diet of pureed (IDDSI Level 4) and mildly thickened liquids (IDDSI Level 2). The pt should receive set up assist as well as 1:1 supervision during meals. It is additionally recommended that the pt follow these standard swallowing precautions: Small bites/sips, sit upright during meals, and minimize distractions. It is also recommended that an MBS be completed. The MBS cannot be completed until 02/02 due to no radiologist being on site. Chelly Potter, Catherine and BRIDGET Cisse were notified of BSE results and recommendations. Thank you for this referral.
[2025-01-31 14:50] VITALS: BP 117/47; PULSE 92; RESP 18; TEMP 36.5; O2SAT 96
[2025-01-31 17:01] LABS: Glucose Point of Care 148 mg/dl (65-105)
[2025-01-31] MEDS: SODIUM CHLORIDE 0.9% IV 1,000 ML 75 ML IV CONT (17:27)
[2025-01-31] MEDS: APIXABAN 5 MG TABLET PO (17:29)
[2025-01-31] MEDS: SACCHAROMYCES BOULARDII 250 MG CAPSULE PO (17:30)
[2025-01-31] MEDS: VITAMIN B COMPLEX CAPSULE 1 CAP PO (17:30)
[2025-01-31] MEDS: DOCUSATE SODIUM 100 MG CAPSULE PO (17:30)
[2025-01-31 17:33] LABS: Magnesium 2.4 mg/dL (1.6-2.3)
[2025-01-31 20:00] VITALS: BP 145/91; PULSE 95; RESP 18; TEMP 36; O2SAT 94
[2025-01-31] MEDS: FLUTICASONE/SALMETEROL 115-21 MCG INHALER 1 PUFF 2 PUFF INHALATION (21:00)
[2025-01-31 21:27] LABS: Glucose Point of Care 84 mg/dl (65-105)
[2025-02-01] VITALS (11 sets, daily range): BP systolic 114–147; BP diastolic 71–78; PULSE 86–112; RESP 18–20; TEMP 35.9–36.6; O2SAT 93–98
[2025-02-01] MEDS: SODIUM CHLORIDE 0.9% IV 1,000 ML 75 ML IV CONT ×2 (06:29→18:57)
[2025-02-01 07:26] LABS: Basophils Percent Auto 0.6 % (0.2-1.2); Eosinophils Absolute Auto 0.2 K/mm3 (0-0.3); Eosinophils Percent Auto 2.6 % (0-4.4); Hematocrit 36.4 % (37.0-47.0); Hemoglobin 11.7 g/dL (12.0-15.0); Immature Granulocyte Absolute 0.03 K/mm3 (0.00-0.031); Immature Granulocyte Percent A 0.4 % (0-0.5); Lymphocytes Absolute Auto 1.04 K/mm3 (0.9-3.2); Mean Corpuscular HGB Conc 32.1 g/dl (32-36); Mean Corpuscular Hemoglobin 31.2 pg (26-34); Mean Corpuscular Volume 97.1 fl (80-100); Mean Platelet Volume 9.5 fl (7.4-10.4); Monocytes Absolute Auto 0.7 K/mm3 (0.1-0.6); Monocytes Percent Auto 10.2 % (2.6-8.5); Neutrophils Absolute Auto 4.9 K/mm3 (1.3-6.7); Neutrophils Percent Auto 71.2 % (45.5-73.1); Platelet Count Result 238 k/mm3 (150-375); Red Blood Count 3.75 M/mm3 (4.2-5.4); White Blood Count 6.9 K/mm3 (4.5-10.0)
[2025-02-01 08:02] LABS: Alanine Aminotransferase 16 U/L (6-35); Albumin Level 2.8 g/dL (3.5-5.1); Alkaline Phosphatase 146 U/L (38-126); Anion Gap 5 mmol/L (4-12); Aspartate Amino Transferase 27 U/L (14-36); Bilirubin,Total 0.5 mg/dL (0.2-1.3); Blood Urea Nitrogen 11 mg/dL (7-17); Calcium 8.1 mg/dL (8.4-10.2); Carbon Dioxide 25 mmol/L (22-30); Chloride 104 mmol/L (98-107); Estimated CRCL calculation 70 ml/min; Estimated Glomerular Filt Rate > 60; Glucose 81 mg/dL (65-110); Magnesium 1.6 mg/dL (1.6-2.3); Phosphorus 2.3 mg/dL (2.5-4.5); Potassium 3.8 mmol/L (3.4-5.0); Sodium 134 mmol/L (137-145)
[2025-02-01 08:08] LABS: Glucose Point of Care 83 mg/dl (65-105)
[2025-02-01] MEDS: FLUTICASONE/SALMETEROL 115-21 MCG INHALER 1 PUFF 2 PUFF INHALATION ×2 (08:09→20:02)
[2025-02-01] MEDS: allopurinoL 300 MG TABLET PO (08:35)
[2025-02-01] MEDS: CALCIUM CARBONATE (OSCAL) 500 MG TABLET PO (08:35)
[2025-02-01] MEDS: SERTRALINE HCL 25 MG TABLET PO (08:35)
[2025-02-01] MEDS: DOCUSATE SODIUM 100 MG CAPSULE PO ×2 (08:37→16:39)
[2025-02-01] MEDS: PANTOPRAZOLE 40 MG TABLET PO (08:37)
[2025-02-01] MEDS: VITAMIN B COMPLEX CAPSULE 1 CAP PO ×2 (08:37→16:39)
[2025-02-01] MEDS: MAGNESIUM OXIDE 400 MG TABLET PO ×3 (08:38→16:39)
[2025-02-01] MEDS: SACCHAROMYCES BOULARDII 250 MG CAPSULE PO ×2 (08:38→16:39)
[2025-02-01] MEDS: APIXABAN 5 MG TABLET PO ×2 (08:38→16:39)
[2025-02-01] MEDS: CHOLECALCIFEROL 5,000 UNITS TABLET 5000 UNITS BY MOUTH (08:38)
[2025-02-01] MEDS: MONTELUKAST SODIUM 10 MG TABLET PO (08:39)
[2025-02-01] MEDS: ATORVASTATIN 10 MG TABLET PO (08:39)
[2025-02-01] MEDS: POTASSIUM/PHOSPHORUS/SODIUM 1.5 GM PACKET 1 PACKET PO (10:38)
--- NOTE | 2025-02-01 11:56 | P.PNIM_ITS ---
Progress Note: A&P Assessment and Plan (1) Altered mental status: Qualifiers: Altered mental status type: unspecified Qualified Code(s): R41.82 - Altered mental status, unspecified Code(s): R41.82 - Altered mental status, unspecified Status: Acute Assessment and Plan: Unknown baseline sister Zoë reported bedridden was able to feed self but would only answer with on word phrases currently nonverbal except for 2 no's. * CT head with no acute intracranial process * Could be secondary to urinary tract infection * MRI of brain today showed: FINDINGS: There are scattered areas of nonspecific increased T2-weighted signal intensity in the cerebral white matter and adrian. There is no intracranial hemorrhage, acute infarction, or abnormal intracranial mass lesion. The ventricles are normal in size. There are bilateral mastoid effusions. There is mild mucosal thickening in the paranasal sinuses. The orbits are normal. IMPRESSION: 1. Worsened extensive nonspecific cerebral white matter disease and pontine disease, which likely represents chronic small vessel ischemic disease. (2) Acute UTI: Code(s): N39.0 - Urinary tract infection, site not specified Status: Acute Assessment and Plan: Patient presented with AMS and lethargy * UA nitrate+, Leukocyte, >100 WBC, 4+ bacteriuria * Past to urinary tract infection/Klebsiella pneumoniae and E coli both pansensitive except resistant to Macrobid * IV Rocephin pending cultures * Normal WBC and afebrile continue to monitor for any signs of sepsis * Urine culture grew E coli. (3) JOSE ALBERTO (acute kidney injury): Code(s): N17.9 - Acute kidney failure, unspecified Status: Acute Assessment and Plan: * Likely secondary to UTI and dehydration * Creatinine improved from 2.30>0.97>0.63. * NS @ 75 ml/hr. * Avoid nephrotoxic drugs. * Monitor antihypertensive drug therapy. * Avoid NSAIDs. * Routine CMP monitoring GFR. * Monitor electrolytes especially potassium. * Antibiotic doses depending on creatinine clearance. (4) HTN (hypertension): Qualifiers: Hypertension type: unspecified Qualified Code(s): I10 - Essential (primary) hypertension Code(s): I10 - Essential (primary) hypertension Status: Chronic Assessment and Plan: * BP 147/77. * Coreg 6.25 mg PO BID. * Would hold and discontinue her lisinopril and hydrochlorothiazide * BP per unit protocol (5) Diabetes mellitus with hyperglycemia: Code(s): E11.65 - Type 2 diabetes mellitus with hyperglycemia Status: Acute Assessment and Plan: * Accu-Cheks a.c. HS * sliding scale insulin * hold oral diabetic medications metformin * Hemoglobin A1c pending * Diabetic diet * Watch for hypoglycemia/hypoglycemic protocol ordered (6) GERD (gastroesophageal reflux disease): Code(s): K21.9 - Gastro-esophageal reflux disease without esophagitis Status: Acute Assessment and Plan: * added Protonix (7) COPD (chronic obstructive pulmonary disease): Qualifiers: COPD type: unspecified COPD Qualified Code(s): J44.9 - Chronic obstructive pulmonary disease, unspecified Code(s): J44.9 - Chronic obstructive pulmonary disease, unspecified Status: Chronic Assessment and Plan: * Stent appeared exacerbation on room air * Redo inhaler as needed (8) Hypomagnesemia: Code(s): E83.42 - Hypomagnesemia Status: Acute Assessment and Plan: * Magnesium 1.6. * Increase Magnesium Oxide 400 mg PO BID. * Trend magnesium levels. (9) Hypophosphatemia: Code(s): E83.39 - Other disorders of phosphorus metabolism Status: Acute Assessment and Plan: * Phosphorus 2.3 * Phos-Nak packet x 1 given. * Monitor levels. Subjective Date/time seen: 02/01/25 11:56 Interval history: Patient sitting up in bed. Patient denies chest pain, palpitations, shortness of breath, headache, dizziness, nausea, or vomiting. Review of Systems Review of Systems: All systems reviewed & are unremarkable except as noted in HPI and below Exam Const: General: comfortable and no acute distress Resp: Effort & Inspection: normal respiratory effort Auscultation: clear to auscultation bilaterally Cardio: Rate: regular rate Rhythm: regular rhythm GI: GI Palp: Yes Soft to palpation Auscultation: normal bowel sounds Neuro: Speech: normal speech Extrem: General: no pedal edema Psych: Affect: normal affect Other: Oriented to person, place, month, and year. Talking in short sentences. Objective Data Vital Signs Vital Signs: Vital Signs - 24 hr 01/31/25 14:50 01/31/25 20:00 02/01/25 04:00 Temperature 97.7 F 96.8 F L 97 F L Pulse Rate 92 95 91 Respiratory Rate 18 18 18 Blood Pressure 117/47 L 145/91 H 141/78 H Pulse Oximetry 96 94 93 Oxygen Delivery 02/01/25 08:00 02/01/25 08:10 Temperature 97.3 F L Pulse Rate 96 Respiratory Rate 18 Blood Pressure 147/77 H Pulse Oximetry 98 93 Oxygen Delivery Room Air Intake/Output Intake/Output: Intake & Output 01/29/25 01/30/25 01/31/25 02/01/25 23:59 23:59 23:59 23:59 Intake Total 2050 220 1377.5 Output Total 800 1700 800 Balance 1250 -1480 577.5 Meds/Results Medications: Active Medications Generic Name Dose Route Start Last Admin Trade Name Freq PRN Reason Stop Dose Admin Acetaminophen 650 mg 01/30/25 10:57 Acetaminophen 325 Mg Tablet PO Q4H PRN Mild Pain (1-3) or Fever Albuterol 2 puff 01/31/25 11:39 Albuterol Sulfate (*Sp) Aerosol 1 Puff INHALATION Q6H PRN Shortness Of Breath Or Wheezing Allopurinol 300 mg 02/01/25 09:00 02/01/25 08:35 Allopurinol 300 Mg Tablet PO 300 mg DAILY RADHA Administration Apixaban 5 mg 01/31/25 17:00 02/01/25 08:38 Apixaban 5 Mg Tablet PO 5 mg BID RADHA Administration Atorvastatin Calcium 10 mg 02/01/25 09:00 02/01/25 08:39 Atorvastatin 10 Mg Tablet PO 10 mg DAILY RADHA Administration Baclofen 10 mg 01/31/25 11:39 Baclofen 10 Mg Tablet PO TID PRN Hiccups Calcium Carbonate 500 mg 02/01/25 09:00 02/01/25 08:35 Calcium Carbonate (Oscal) 500 Mg Tablet PO 500 mg QAM RADHA Administration Dextrose 12.5 gm 01/30/25 12:43 01/31/25 08:12 Dextrose 50% 25 Gm/50 Ml Syringe IV PUSH 12.5 gm PRN PRN Administration Hypoglycemia Protocol Docusate Sodium 100 mg 01/31/25 17:00 02/01/25 08:37 Docusate Sodium 100 Mg Capsule PO 100 mg BID RADHA Administration Glucagon 1 mg 01/30/25 12:43 Glucagon For Inj 1 Mg Vial IM PRN PRN Hypoglycemia Protocol Glucose 15 gm 01/30/25 12:43 Glucose Oral Gel 15 Gm Of Glucse In 37.5 Gm Tube PO PRN PRN Hypoglycemia Protocol Ceftriaxone Sodium 1 gm in 50 mls @ 100 mls/hr 01/31/25 11:00 02/01/25 10:41 Rocephin 1 Gm/Ns 50 Ml IVPB 100 mls/hr Q24H RADHA Administration Dextrose 1,000 mls @ 100 mls/hr 01/30/25 12:43 Dextrose 5% 1,000 Ml IVPB PRN PRN Hypoglycemia Protocol Sodium Chloride 1,000 mls @ 75 mls/hr 01/31/25 15:55 02/01/25 06:29 Normal Saline Iv IV CONT 75 mls/hr .[id number] RADHA Administration Insulin Aspart 2 - 5 units 01/30/25 17:00 02/01/25 08:34 Insulin Aspart (*Bkc) 100 Units/Ml SUB-Q Not Given TIDWM RADHA Protocol Magnesium Oxide 400 mg 02/01/25 10:00 02/01/25 10:41 Magnesium Oxide 400 Mg Tablet PO 400 mg BID RADHA Administration Montelukast Sodium 10 mg 02/01/25 09:00 02/01/25 08:39 Montelukast Sodium 10 Mg Tablet PO 10 mg DAILY RADHA Administration Ondansetron HCl 4 mg 01/30/25 12:21 Ondansetron Inj 4 Mg/2 Ml Vial IV PUSH Q6H PRN Nausea And Vomiting Pantoprazole Sodium 40 mg 01/30/25 12:50 02/01/25 08:37 Pantoprazole 40 Mg Tablet PO 40 mg QAM RADHA Administration Saccharomyces Boulardii 250 mg 01/31/25 17:00 02/01/25 08:38 Saccharomyces Boulardii 250 Mg Capsule PO 250 mg BID RADHA Administration Fluticasone/Salmeterol 2 puff 01/31/25 20:00 02/01/25 08:09 Fluticasone/Salmeterol 115-21 Mcg Inhaler 1 Puff INHALATION 2 puff Q12HRT RADHA Administration Sertraline HCl 25 mg 02/01/25 09:00 02/01/25 08:35 Sertraline Hcl 25 Mg Tablet PO 25 mg DAILY RADHA Administration Vitamin B Complex 1 cap 01/31/25 17:00 02/01/25 08:37 Vitamin B Complex Capsule PO 1 cap BID RADHA Administration Vitamin D 5,000 units 02/01/25 09:00 02/01/25 08:38 Cholecalciferol 5,000 Units Tablet BY MOUTH 5,000 units DAILY RADHA Administration Radiology Results: ITS Impressions Head CT 01/30/25 12:53 IMPRESSION: 1. Stable appearance of age-related changes including moderate diffuse volume loss and extensive white matter hypoattenuation consistent with chronic small vessel ischemic disease. No acute intracranial process. Brain MRI 01/31/25 07:45 IMPRESSION: 1. Worsened extensive nonspecific cerebral white matter disease and pontine disease, which likely represents chronic small vessel ischemic disease. Labs Labs: Laboratory Results - last 24 hr 01/31/25 01/31/25 01/31/25 12:02 16:53 16:58 WBC RBC Hgb Hct MCV MCH MCHC RDW Plt Count MPV Immature Gran % (Auto) Neut % (Auto) Lymph % (Auto) [place] % (Auto) Eos % (Auto) Baso % (Auto) Lymph # (Auto) [place] # (Auto) Eos # (Auto) Baso # (Auto) Abs Immat Gran (auto) Absolute Neuts (auto) Absolute Nucleated RBC Nucleated RBC % Sodium Potassium Chloride Carbon Dioxide Anion Gap BUN Creatinine Estim Creat Clear Calc Estimated GFR Glucose POC Capillary Glucose 137 H 148 H Calcium Phosphorus Magnesium 2.4 H Total Bilirubin AST ALT Alkaline Phosphatase Total Protein Albumin 01/31/25 02/01/25 02/01/25 21:24 07:17 07:18 WBC 6.9 RBC 3.75 L Hgb 11.7 L Hct 36.4 L MCV 97.1 MCH 31.2 MCHC 32.1 RDW 15.0 H Plt Count 238 MPV 9.5 Immature Gran % (Auto) 0.4 Neut % (Auto) 71.2 Lymph % (Auto) 15.0 L [place] % (Auto) 10.2 H Eos % (Auto) 2.6 Baso % (Auto) 0.6 Lymph # (Auto) 1.04 [place] # (Auto) 0.7 H Eos # (Auto) 0.2 Baso # (Auto) 0.0 Abs Immat Gran (auto) 0.03 Absolute Neuts (auto) 4.9 Absolute Nucleated RBC 0.000 Nucleated RBC % 0.0 Sodium 134 L Potassium 3.8 Chloride 104 Carbon Dioxide 25 Anion Gap 5 BUN 11 D Creatinine 0.63 L Estim Creat Clear Calc 70 Estimated GFR > 60 Glucose 81 POC Capillary Glucose 84 Calcium 8.1 L Phosphorus 2.3 L Magnesium 1.6 Total Bilirubin 0.5 AST 27 ALT 16 Alkaline Phosphatase 146 H Total Protein 6.0 L Albumin 2.8 L 02/01/25 07:57 WBC RBC Hgb Hct MCV MCH MCHC RDW Plt Count MPV Immature Gran % (Auto) Neut % (Auto) Lymph % (Auto) [place] % (Auto) Eos % (Auto) Baso % (Auto) Lymph # (Auto) [place] # (Auto) Eos # (Auto) Baso # (Auto) Abs Immat Gran (auto) Absolute Neuts (auto) Absolute Nucleated RBC Nucleated RBC % Sodium Potassium Chloride Carbon Dioxide Anion Gap BUN Creatinine Estim Creat Clear Calc Estimated GFR Glucose POC Capillary Glucose 83 Calcium Phosphorus Magnesium Total Bilirubin AST ALT Alkaline Phosphatase Total Protein Albumin Quality VTE Prophylaxis VTE prophylaxis: mechanical ordered and pharmacologic ordered
[2025-02-01 12:02] LABS: Glucose Point of Care 158 mg/dl (65-105)
[2025-02-01] MEDS: carvediloL 6.25 MG TABLET PO ×2 (13:50→20:39)
[2025-02-01] MEDS: POTASSIUM CHLORIDE 20 MEQ ER TABLET PO (13:50)
[2025-02-01 17:09] LABS: Glucose Point of Care 157 mg/dl (65-105)
[2025-02-01 21:21] LABS: Glucose Point of Care 131 mg/dl (65-105)
[2025-02-02] VITALS (9 sets, daily range): BP systolic 118–144; BP diastolic 77–88; PULSE 84–109; RESP 18; TEMP 36–37.1; O2SAT 92–98
[2025-02-02 06:33] LABS: Basophils Absolute Auto 0.1 K/mm3 (0.0-0.1); Basophils Percent Auto 0.7 % (0.2-1.2); Eosinophils Absolute Auto 0.2 K/mm3 (0-0.3); Eosinophils Percent Auto 2.1 % (0-4.4); Immature Granulocyte Absolute 0.03 K/mm3 (0.00-0.031); Immature Granulocyte Percent A 0.4 % (0-0.5); Lymphocytes Absolute Auto 1.05 K/mm3 (0.9-3.2); Lymphocytes Percent Auto 14.5 % (18.3-44.2); Mean Corpuscular HGB Conc 32.4 g/dl (32-36); Mean Corpuscular Hemoglobin 31.2 pg (26-34); Mean Corpuscular Volume 96.1 fl (80-100); Mean Platelet Volume 9.5 fl (7.4-10.4); Monocytes Absolute Auto 0.9 K/mm3 (0.1-0.6); Monocytes Percent Auto 11.7 % (2.6-8.5); Neutrophils Absolute Auto 5.1 K/mm3 (1.3-6.7); Neutrophils Percent Auto 70.6 % (45.5-73.1); Platelet Count Result 258 k/mm3 (150-375); Red Blood Count 3.85 M/mm3 (4.2-5.4); Red Cell Distribution Width 14.7 % (11.5-14.5); White Blood Count 7.3 K/mm3 (4.5-10.0)
[2025-02-02 06:49] LABS: Alanine Aminotransferase 18 U/L (6-35); Albumin Level 3.2 g/dL (3.5-5.1); Alkaline Phosphatase 155 U/L (38-126); Anion Gap 5 mmol/L (4-12); Aspartate Amino Transferase 23 U/L (14-36); Bilirubin,Total 0.4 mg/dL (0.2-1.3); Blood Urea Nitrogen 9 mg/dL (7-17); Calcium 8.6 mg/dL (8.4-10.2); Carbon Dioxide 28 mmol/L (22-30); Chloride 103 mmol/L (98-107); Estimated CRCL calculation 70 ml/min; Estimated Glomerular Filt Rate > 60; Glucose 108 mg/dL (65-110); Magnesium 1.3 mg/dL (1.6-2.3); Phosphorus 2.3 mg/dL (2.5-4.5); Potassium 4.2 mmol/L (3.4-5.0); Sodium 136 mmol/L (137-145)
--- NOTE | 2025-02-02 07:06 | P.CDI_ITS ---
CDI Query Clarification Request BMI: 29.5 Nutritional Diagnostic Statement: Please refer to the comprehensive nutrition assessment for further information. 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 Please specify severity if known: * Mild * Moderate * Severe * Other/Unknown <Juana Champion RN - Last Filed: 02/02/25 07:06> Provider Comments Do not agree. <Chelly Potter APRN - Last Filed: 02/02/25 15:55>
[2025-02-02 07:45] LABS: Glucose Point of Care 109 mg/dl (65-105)
[2025-02-02] MEDS: FLUTICASONE/SALMETEROL 115-21 MCG INHALER 1 PUFF 2 PUFF INHALATION ×2 (08:47→20:06)
[2025-02-02] MEDS: SACCHAROMYCES BOULARDII 250 MG CAPSULE PO ×2 (08:55→16:52)
[2025-02-02] MEDS: carvediloL 6.25 MG TABLET PO ×2 (08:56→20:27)
[2025-02-02] MEDS: CALCIUM CARBONATE (OSCAL) 500 MG TABLET PO (08:56)
[2025-02-02] MEDS: PANTOPRAZOLE 40 MG TABLET PO (08:56)
[2025-02-02] MEDS: CHOLECALCIFEROL 5,000 UNITS TABLET 5000 UNITS BY MOUTH (08:57)
[2025-02-02] MEDS: DOCUSATE SODIUM 100 MG CAPSULE PO ×2 (08:57→16:54)
[2025-02-02] MEDS: POTASSIUM CHLORIDE 20 MEQ ER TABLET PO (08:57)
[2025-02-02] MEDS: SERTRALINE HCL 25 MG TABLET PO (08:58)
[2025-02-02] MEDS: MONTELUKAST SODIUM 10 MG TABLET PO (08:58)
[2025-02-02] MEDS: APIXABAN 5 MG TABLET PO ×2 (08:58→16:54)
[2025-02-02] MEDS: allopurinoL 300 MG TABLET PO (08:58)
[2025-02-02] MEDS: ATORVASTATIN 10 MG TABLET PO (08:58)
[2025-02-02] MEDS: MAGNESIUM OXIDE 400 MG TABLET PO ×2 (08:58→16:53)
[2025-02-02] MEDS: VITAMIN B COMPLEX CAPSULE 1 CAP PO ×2 (08:59→16:54)
[2025-02-02] MEDS: MAGNESIUM SULFATE 3GM/D5W100ML 3 GM/100 ML BAG IVPB (09:33)
[2025-02-02] MEDS: POTASSIUM/PHOSPHORUS/SODIUM 1.5 GM PACKET 1 PACKET PO (09:33)
--- NOTE | 2025-02-02 11:20 | P.PNIM_ITS ---
Progress Note: A&P Assessment and Plan (1) Altered mental status: Qualifiers: Altered mental status type: unspecified Qualified Code(s): R41.82 - Altered mental status, unspecified Code(s): R41.82 - Altered mental status, unspecified Status: Acute Assessment and Plan: Unknown baseline sister Zoë reported bedridden was able to feed self but would only answer with on word phrases currently nonverbal except for 2 no's. * CT head with no acute intracranial process * Could be secondary to urinary tract infection * MRI of brain today showed: FINDINGS: There are scattered areas of nonspecific increased T2-weighted signal intensity in the cerebral white matter and adrian. There is no intracranial hemorrhage, acute infarction, or abnormal intracranial mass lesion. The ventricles are normal in size. There are bilateral mastoid effusions. There is mild mucosal thickening in the paranasal sinuses. The orbits are normal. IMPRESSION: 1. Worsened extensive nonspecific cerebral white matter disease and pontine disease, which likely represents chronic small vessel ischemic disease. * Patient is now speaking in sentences. Alert to person, at hospital, January, and . * Modified Barium swallow today: FINDINGS: There is reduced laryngeal elevation and laryngeal penetration. IMPRESSION: 1. Laryngeal penetration. 2. Please refer to the speech therapy report for recommendations. * Patient diet Pureed level 4 with moderate thick liquids. Patient needs to sit up in chair to eat and be supervised. * Chest X-ray today showed: FINDINGS: There are airspace opacities in right perihilar region and right lung apex with staple lines and volume loss. There is mild scarring at left lung apex. No pleural effusion or pneumothorax. The heart size is normal. Surgical clips in the right upper quadrant are likely from cholecystectomy. IMPRESSION: 1. 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 (2) Acute UTI: Code(s): N39.0 - Urinary tract infection, site not specified Status: Acute Assessment and Plan: Patient presented with AMS and lethargy * UA nitrate+, Leukocyte, >100 WBC, 4+ bacteriuria * Past to urinary tract infection/Klebsiella pneumoniae and E coli both pansensitive except resistant to Macrobid * IV Rocephin * Normal WBC and afebrile continue to monitor for any signs of sepsis * Urine culture grew E coli. (3) JOSE ALBERTO (acute kidney injury): Code(s): N17.9 - Acute kidney failure, unspecified Status: Acute Assessment and Plan: * Likely secondary to UTI and dehydration * Creatinine improved from 2.30>0.97>0.63. * Avoid nephrotoxic drugs. * Monitor antihypertensive drug therapy. * Avoid NSAIDs. * Routine CMP monitoring GFR. * Monitor electrolytes especially potassium. * Antibiotic doses depending on creatinine clearance. (4) HTN (hypertension): Qualifiers: Hypertension type: unspecified Qualified Code(s): I10 - Essential (primary) hypertension Code(s): I10 - Essential (primary) hypertension Status: Chronic Assessment and Plan: * BP 118/79. * Coreg 6.25 mg PO BID. * Would hold and discontinue her lisinopril and hydrochlorothiazide * BP per unit protocol (5) Diabetes mellitus with hyperglycemia: Code(s): E11.65 - Type 2 diabetes mellitus with hyperglycemia Status: Acute Assessment and Plan: * Accu-Cheks carla HS * sliding scale insulin * hold oral diabetic medications metformin * Hemoglobin A1c pending * Diabetic diet * Watch for hypoglycemia/hypoglycemic protocol ordered (6) GERD (gastroesophageal reflux disease): Code(s): K21.9 - Gastro-esophageal reflux disease without esophagitis Status: Acute Assessment and Plan: * added Protonix (7) COPD (chronic obstructive pulmonary disease): Qualifiers: COPD type: unspecified COPD Qualified Code(s): J44.9 - Chronic obstructive pulmonary disease, unspecified Code(s): J44.9 - Chronic obstructive pulmonary disease, unspecified Status: Chronic Assessment and Plan: * Stent appeared exacerbation on room air * Redo inhaler as needed (8) Hypomagnesemia: Code(s): E83.42 - Hypomagnesemia Status: Acute Assessment and Plan: * Magnesium 1.3 * Magnesium Oxide 400 mg PO BID. * Add Magnesium Sulfate 3 gram IVPB x1. * Trend magnesium levels. (9) Hypophosphatemia: Code(s): E83.39 - Other disorders of phosphorus metabolism Status: Acute Assessment and Plan: * Phosphorus 2.3 * Phos-Nak packet x 1 given. * Monitor levels. Subjective Date/time seen: 02/02/25 11:20 Interval history: Patient sitting up in bed. Patient denies chest pain, palpitations, headache, dizziness, nausea, or vomiting. Patient reports coughing up yellow sputum at times. Review of Systems Review of Systems: All systems reviewed & are unremarkable except as noted in HPI and below Exam Const: General: comfortable and no acute distress Resp: Effort & Inspection: normal respiratory effort Auscultation: diminished lung sounds Cardio: Rate: regular rate Rhythm: regular rhythm GI: GI Palp: Yes Soft to palpation Auscultation: normal bowel sounds Neuro: Speech: normal speech Extrem: General: no pedal edema Psych: Affect: normal affect Other: Alert to person, at hospital, January, and . Objective Data Vital Signs Vital Signs: Vital Signs - 24 hr 02/01/25 12:00 02/01/25 13:50 02/01/25 14:00 Temperature 97.0 F L 97.9 F Pulse Rate 112 H 110 H 105 H Respiratory Rate 18 20 Blood Pressure 114/72 134/71 Pulse Oximetry 94 98 Oxygen Delivery 02/01/25 16:00 02/01/25 20:00 02/01/25 20:02 Temperature 96.6 F L 96.6 F L Pulse Rate 103 H 104 H Respiratory Rate 18 18 Blood Pressure 124/71 122/76 Pulse Oximetry 97 93 94 Oxygen Delivery Room Air 02/01/25 20:39 02/01/25 20:45 02/01/25 22:00 Temperature 96.6 F L Pulse Rate 86 104 H Respiratory Rate 18 Blood Pressure 122/76 Pulse Oximetry 93 Oxygen Delivery Room Air 02/02/25 04:00 02/02/25 08:00 02/02/25 08:56 Temperature 96.8 F L Pulse Rate 101 H 109 H 109 H Respiratory Rate 18 Blood Pressure 125/77 Pulse Oximetry 92 92 Oxygen Delivery Room Air Intake/Output Intake/Output: Intake & Output 01/30/25 01/31/25 02/01/25 02/02/25 23:59 23:59 23:59 23:59 Intake Total 2050 220 2712.5 340 Output Total 800 1700 1600 950 Balance 1250 -1480 1112.5 -610 Meds/Results Medications: Active Medications Generic Name Dose Route Start Last Admin Trade Name Freq PRN Reason Stop Dose Admin Acetaminophen 650 mg 01/30/25 10:57 Acetaminophen 325 Mg Tablet PO Q4H PRN Mild Pain (1-3) or Fever Albuterol 2 puff 01/31/25 11:39 Albuterol Sulfate (*Sp) Aerosol 1 Puff INHALATION Q6H PRN Shortness Of Breath Or Wheezing Allopurinol 300 mg 02/01/25 09:00 02/02/25 08:58 Allopurinol 300 Mg Tablet PO 300 mg DAILY RADHA Administration Apixaban 5 mg 01/31/25 17:00 02/02/25 08:58 Apixaban 5 Mg Tablet PO 5 mg BID RADHA Administration Atorvastatin Calcium 10 mg 02/01/25 09:00 02/02/25 08:58 Atorvastatin 10 Mg Tablet PO 10 mg DAILY RADHA Administration Baclofen 10 mg 01/31/25 11:39 Baclofen 10 Mg Tablet PO TID PRN Hiccups Calcium Carbonate 500 mg 02/01/25 09:00 02/02/25 08:56 Calcium Carbonate (Oscal) 500 Mg Tablet PO 500 mg QAM RADHA Administration Carvedilol 6.25 mg 02/01/25 13:20 02/02/25 08:56 Carvedilol 6.25 Mg Tablet PO 6.25 mg Q12HR RADHA Administration Dextrose 12.5 gm 01/30/25 12:43 01/31/25 08:12 Dextrose 50% 25 Gm/50 Ml Syringe IV PUSH 12.5 gm PRN PRN Administration Hypoglycemia Protocol Docusate Sodium 100 mg 01/31/25 17:00 02/02/25 08:57 Docusate Sodium 100 Mg Capsule PO 100 mg BID RADHA Administration Glucagon 1 mg 01/30/25 12:43 Glucagon For Inj 1 Mg Vial IM PRN PRN Hypoglycemia Protocol Glucose 15 gm 01/30/25 12:43 Glucose Oral Gel 15 Gm Of Glucse In 37.5 Gm Tube PO PRN PRN Hypoglycemia Protocol Dextrose 1,000 mls @ 100 mls/hr 01/30/25 12:43 Dextrose 5% 1,000 Ml IVPB PRN PRN Hypoglycemia Protocol Sodium Chloride 1,000 mls @ 75 mls/hr 01/31/25 15:55 02/01/25 18:57 Normal Saline Iv IV CONT 75 mls/hr .[id number] RADHA Administration Magnesium Sulfate/Dextrose 3 gm in 100 mls @ 33.333 mls/hr 02/02/25 09:15 02/02/25 09:33 Magnesium Sulfate 3gm/[id number] IVPB 02/02/25 12:14 33.33 mls/hr ONCE ONE Administration Ceftriaxone Sodium 1 gm in 50 mls @ 100 mls/hr 02/02/25 12:00 Rocephin 1 Gm/Ns 50 Ml IVPB DAILY [facility] Insulin Aspart 2 - 5 units 01/30/25 17:00 02/02/25 07:48 Insulin Aspart (*Bkc) 100 Units/Ml SUB-Q Not Given TIDWM [facility] Protocol Magnesium Oxide 400 mg 02/01/25 10:00 02/02/25 08:58 Magnesium Oxide 400 Mg Tablet PO 400 mg BID [facility] Administration Montelukast Sodium 10 mg 02/01/25 09:00 02/02/25 08:58 Montelukast Sodium 10 Mg Tablet PO 10 mg DAILY [facility] Administration Ondansetron HCl 4 mg 01/30/25 12:21 Ondansetron Inj 4 Mg/2 Ml Vial IV PUSH Q6H PRN Nausea And Vomiting Pantoprazole Sodium 40 mg 01/30/25 12:50 02/02/25 08:56 Pantoprazole 40 Mg Tablet PO 40 mg QAM [facility] Administration Potassium Chloride 20 meq 02/01/25 13:25 02/02/25 08:57 Potassium Chloride 20 Meq Er Tablet PO 20 meq DAILY [facility] Administration Saccharomyces Boulardii 250 mg 01/31/25 17:00 02/02/25 08:55 Saccharomyces Boulardii 250 Mg Capsule PO 250 mg BID [facility] Administration Fluticasone/Salmeterol 2 puff 01/31/25 20:00 02/02/25 08:47 Fluticasone/Salmeterol 115-21 Mcg Inhaler 1 Puff INHALATION 2 puff Q12HRT [facility] Administration Sertraline HCl 25 mg 02/01/25 09:00 02/02/25 08:58 Sertraline Hcl 25 Mg Tablet PO 25 mg DAILY [facility] Administration Vitamin B Complex 1 cap 01/31/25 17:00 02/02/25 08:59 Vitamin B Complex Capsule PO 1 cap BID [facility] Administration Vitamin D 5,000 units 02/01/25 09:00 02/02/25 08:57 Cholecalciferol 5,000 Units Tablet BY MOUTH 5,000 units DAILY RADHA Administration Radiology Results: ITS Impressions Head CT 01/30/25 12:53 IMPRESSION: 1. Stable appearance of age-related changes including moderate diffuse volume loss and extensive white matter hypoattenuation consistent with chronic small vessel ischemic disease. No acute intracranial process. Brain MRI 01/31/25 07:45 IMPRESSION: 1. Worsened extensive nonspecific cerebral white matter disease and pontine disease, which likely represents chronic small vessel ischemic disease. Labs Labs: Laboratory Results - last 24 hr 02/01/25 02/01/25 02/01/25 11:39 16:31 21:19 WBC RBC Hgb Hct MCV MCH MCHC RDW Plt Count MPV Immature Gran % (Auto) Neut % (Auto) Lymph % (Auto) [place] % (Auto) Eos % (Auto) Baso % (Auto) Lymph # (Auto) [place] # (Auto) Eos # (Auto) Baso # (Auto) Abs Immat Gran (auto) Absolute Neuts (auto) Absolute Nucleated RBC Nucleated RBC % Sodium Potassium Chloride Carbon Dioxide Anion Gap BUN Creatinine Estim Creat Clear Calc Estimated GFR Glucose POC Capillary Glucose 158 H 157 H 131 H Calcium Phosphorus Magnesium Total Bilirubin AST ALT Alkaline Phosphatase Total Protein Albumin 02/02/25 02/02/25 05:56 07:41 WBC 7.3 RBC 3.85 L Hgb 12.0 Hct 37.0 MCV 96.1 MCH 31.2 MCHC 32.4 RDW 14.7 H Plt Count 258 MPV 9.5 Immature Gran % (Auto) 0.4 Neut % (Auto) 70.6 Lymph % (Auto) 14.5 L [place] % (Auto) 11.7 H Eos % (Auto) 2.1 Baso % (Auto) 0.7 Lymph # (Auto) 1.05 [place] # (Auto) 0.9 H Eos # (Auto) 0.2 Baso # (Auto) 0.1 Abs Immat Gran (auto) 0.03 Absolute Neuts (auto) 5.1 Absolute Nucleated RBC 0.000 Nucleated RBC % 0.0 Sodium 136 L Potassium 4.2 Chloride 103 Carbon Dioxide 28 Anion Gap 5 BUN 9 Creatinine 0.63 L Estim Creat Clear Calc 70 Estimated GFR > 60 Glucose 108 POC Capillary Glucose 109 H Calcium 8.6 Phosphorus 2.3 L Magnesium 1.3 L Total Bilirubin 0.4 AST 23 ALT 18 Alkaline Phosphatase 155 H Total Protein 7.0 Albumin 3.2 L Quality VTE Prophylaxis VTE prophylaxis: mechanical ordered and pharmacologic ordered
[2025-02-02 11:29] LABS: Glucose Point of Care 123 mg/dl (65-105)
--- NOTE | 2025-02-02 14:48 | PCSTNOTE ---
Please refer to the Modified Barium Swallow Evaluation in the EMR. The pt was seen for an MBS due to overt s/s of aspiration exhibited during the bedside swallow evaluation; Pt appeared confused before exam; she was seated for a lateral view and was presented with 5cc of thin liquid barium via a spoon, pudding consistency barium via a spoon, a crumbled cracker coated with barium pudding via spoon, and 5cc moderately thick liquids. Pt was also given a controlled sip via a cup of thin liquids. During the oral stage, pt intermittently did not close her mouth adequately which resulted in anterior spill. Prolonged and abnormal oral hold was also noted, but did initiate the oral stage after verbal cues. Residue on the mid tongue was exhibited after the cracker trial (eventually cleared with a liquid wash). During the pharyngeal stage, the pt presented with reduced laryngeal elevation as evidenced by penetration during the swallow with all trials. For pudding and the moderately thick liquids, the penetration appeared to be slightly more shallow; with the solid trial, the penetration was deeper to the level of cords during & after the swallow with which trace aspiration could not be ruled out. Impression: moderate dysphagia as pt presents with risk to aspirate all consistencies. Recommendation: trial oral intake: puree diet (level 4) with moderately thick liquids (level 3). one to one supervision with meals as well as OOB for meals is recommended as that position is optimal for reducing aspiration risk. Small sips and bites. If pt continues to present with overt s/s of aspiration or has worsening pulmonary status, NPO may be considered.
[2025-02-02 16:24] LABS: Glucose Point of Care 102 mg/dl (65-105)
[2025-02-02 21:35] LABS: Glucose Point of Care 109 mg/dl (65-105)
[2025-02-03] VITALS (7 sets, daily range): BP systolic 111–138; BP diastolic 60–81; PULSE 78–102; RESP 13–20; TEMP 35.7–36.3; O2SAT 93–100
[2025-02-03 06:02] LABS: Basophils Percent Auto 0.5 % (0.2-1.2); Eosinophils Absolute Auto 0.2 K/mm3 (0-0.3); Eosinophils Percent Auto 3.8 % (0-4.4); Hematocrit 39.1 % (37.0-47.0); Hemoglobin 12.5 g/dL (12.0-15.0); Immature Granulocyte Absolute 0.03 K/mm3 (0.00-0.031); Immature Granulocyte Percent A 0.5 % (0-0.5); Lymphocytes Absolute Auto 1.12 K/mm3 (0.9-3.2); Lymphocytes Percent Auto 17.6 % (18.3-44.2); Mean Corpuscular Hemoglobin 30.6 pg (26-34); Mean Corpuscular Volume 95.6 fl (80-100); Mean Platelet Volume 9.4 fl (7.4-10.4); Monocytes Absolute Auto 0.7 K/mm3 (0.1-0.6); Monocytes Percent Auto 11.3 % (2.6-8.5); Neutrophils Absolute Auto 4.2 K/mm3 (1.3-6.7); Neutrophils Percent Auto 66.3 % (45.5-73.1); Platelet Count Result 269 k/mm3 (150-375); Red Blood Count 4.09 M/mm3 (4.2-5.4); Red Cell Distribution Width 14.7 % (11.5-14.5); White Blood Count 6.4 K/mm3 (4.5-10.0)
[2025-02-03 06:16] LABS: Alanine Aminotransferase 18 U/L (6-35); Albumin Level 3.3 g/dL (3.5-5.1); Alkaline Phosphatase 166 U/L (38-126); Anion Gap 4 mmol/L (4-12); Aspartate Amino Transferase 25 U/L (14-36); Bilirubin,Total 0.6 mg/dL (0.2-1.3); Blood Urea Nitrogen 10 mg/dL (7-17); Calcium 8.7 mg/dL (8.4-10.2); Carbon Dioxide 27 mmol/L (22-30); Chloride 102 mmol/L (98-107); Estimated CRCL calculation 71 ml/min; Estimated Glomerular Filt Rate > 60; Glucose 104 mg/dL (65-110); Magnesium 1.8 mg/dL (1.6-2.3); Potassium 4.3 mmol/L (3.4-5.0); Sodium 133 mmol/L (137-145)
[2025-02-03 07:36] LABS: Glucose Point of Care 112 mg/dl (65-105)
[2025-02-03] MEDS: VITAMIN B COMPLEX CAPSULE 1 CAP PO ×2 (08:35→17:39)
[2025-02-03] MEDS: DOCUSATE SODIUM 100 MG CAPSULE PO ×2 (08:35→17:39)
[2025-02-03] MEDS: POTASSIUM CHLORIDE 20 MEQ ER TABLET PO (08:41)
[2025-02-03] MEDS: SERTRALINE HCL 25 MG TABLET PO (08:41)
[2025-02-03] MEDS: SACCHAROMYCES BOULARDII 250 MG CAPSULE PO ×2 (08:41→17:39)
[2025-02-03] MEDS: carvediloL 6.25 MG TABLET PO ×2 (08:41→20:32)
[2025-02-03] MEDS: MAGNESIUM OXIDE 400 MG TABLET PO ×2 (08:42→17:39)
[2025-02-03] MEDS: ATORVASTATIN 10 MG TABLET PO (08:42)
[2025-02-03] MEDS: CEFDINIR 300 MG CAPSULE PO ×2 (08:42→20:33)
[2025-02-03] MEDS: MONTELUKAST SODIUM 10 MG TABLET PO (08:42)
[2025-02-03] MEDS: allopurinoL 300 MG TABLET PO (08:42)
[2025-02-03] MEDS: CHOLECALCIFEROL 5,000 UNITS TABLET 5000 UNITS BY MOUTH (08:42)
[2025-02-03] MEDS: APIXABAN 5 MG TABLET PO ×2 (08:42→17:39)
[2025-02-03] MEDS: PANTOPRAZOLE 40 MG TABLET PO (08:44)
[2025-02-03] MEDS: CALCIUM CARBONATE (OSCAL) 500 MG TABLET PO (08:45)
[2025-02-03] MEDS: FLUTICASONE/SALMETEROL 115-21 MCG INHALER 1 PUFF 2 PUFF INHALATION ×2 (09:12→20:46)
--- NOTE | 2025-02-03 09:56 | PCNFU ---
Nutrition Follow-Up Complete: Severe protein calorie malnutrition related to loss of appetite from chronic dementia as evidenced by intakes <75% needs >1 month; weight loss -11%/1 month; moderate muscle wasting and fat loss Goal:Adequate PO intake at least 75% meals and supplements Pt current nutrition is Heart healthy diet, pureed consistency, moderately thick liuquids level 3. Glucerna shakes BID Nutrition recommendation: Encourage po intake of meals and supplements, continue with current plan of care Last recorded weight is 83 kg. Bowel Motility: +BM 02/01 Labs Reviewed: alb:3.3, NA:133, Cr:0.62 Meds Noted: insulin, vit D, Mag Skin: no pressure injuries Additional Notes: pt on a heart healthy diet, pureed level 4 consistency with level 3 moderately thick liquids following MBS and speech recommendations. Intake 25-50% of meals. Encourage po intake of meals and supplements. Monitoring intakes, weights, labs, supplement tolerance, plan of care Follow up in 5 days
[2025-02-03 11:20] LABS: Glucose Point of Care 127 mg/dl (65-105)
[2025-02-03 11:30] LABS: Glucose Point of Care 124 mg/dl (65-105)
--- NOTE | 2025-02-03 12:07 | P.PNIM_ITS ---
Progress Note: A&P Assessment and Plan (1) Altered mental status: Qualifiers: Altered mental status type: unspecified Qualified Code(s): R41.82 - Altered mental status, unspecified Code(s): R41.82 - Altered mental status, unspecified Status: Acute Assessment and Plan: Unknown baseline sister Zoë reported bedridden was able to feed self but would only answer with on word phrases currently nonverbal except for 2 no's. * CT head with no acute intracranial process * Could be secondary to urinary tract infection * MRI of brain today showed: FINDINGS: There are scattered areas of nonspecific increased T2-weighted signal intensity in the cerebral white matter and adrian. There is no intracranial hemorrhage, acute infarction, or abnormal intracranial mass lesion. The ventricles are normal in size. There are bilateral mastoid effusions. There is mild mucosal thickening in the paranasal sinuses. The orbits are normal. IMPRESSION: 1. Worsened extensive nonspecific cerebral white matter disease and pontine disease, which likely represents chronic small vessel ischemic disease. * Patient is now speaking in sentences. Alert to person, at hospital, January, and . * Modified Barium swallow today: FINDINGS: There is reduced laryngeal elevation and laryngeal penetration. IMPRESSION: 1. Laryngeal penetration. 2. Please refer to the speech therapy report for recommendations. * Patient diet Pureed level 4 with moderate thick liquids. Patient needs to sit up in chair to eat and be supervised. * Chest X-ray today showed: FINDINGS: There are airspace opacities in right perihilar region and right lung apex with staple lines and volume loss. There is mild scarring at left lung apex. No pleural effusion or pneumothorax. The heart size is normal. Surgical clips in the right upper quadrant are likely from cholecystectomy. IMPRESSION: 1. 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 * Patient talking in complete sentences. Oriented to person, hospital, and year. (2) Acute UTI: Code(s): N39.0 - Urinary tract infection, site not specified Status: Acute Assessment and Plan: Patient presented with AMS and lethargy * UA nitrate+, Leukocyte, >100 WBC, 4+ bacteriuria * Past to urinary tract infection/Klebsiella pneumoniae and E coli both pansensitive except resistant to Macrobid * IV Rocephin switched to Cefdinir 300 mg PO q 12. * Normal WBC and afebrile continue to monitor for any signs of sepsis * Urine culture grew E coli. (3) JOSE ALBERTO (acute kidney injury): Code(s): N17.9 - Acute kidney failure, unspecified Status: Acute Assessment and Plan: * Likely secondary to UTI and dehydration * Creatinine improved from 2.30>0.97>0.63>0.62. * Avoid nephrotoxic drugs. * Monitor antihypertensive drug therapy. * Avoid NSAIDs. * Routine CMP monitoring GFR. * Monitor electrolytes especially potassium. * Antibiotic doses depending on creatinine clearance. (4) HTN (hypertension): Qualifiers: Hypertension type: unspecified Qualified Code(s): I10 - Essential (primary) hypertension Code(s): I10 - Essential (primary) hypertension Status: Chronic Assessment and Plan: * BP 138/81. * Coreg 6.25 mg PO BID. * Would hold and discontinue her lisinopril and hydrochlorothiazide * BP per unit protocol (5) Diabetes mellitus with hyperglycemia: Code(s): E11.65 - Type 2 diabetes mellitus with hyperglycemia Status: Acute Assessment and Plan: * Accu-Cheks jaydecGino HS * sliding scale insulin * hold oral diabetic medications metformin * Hemoglobin A1c pending * Diabetic diet * Watch for hypoglycemia/hypoglycemic protocol ordered (6) GERD (gastroesophageal reflux disease): Code(s): K21.9 - Gastro-esophageal reflux disease without esophagitis Status: Acute Assessment and Plan: * added Protonix (7) COPD (chronic obstructive pulmonary disease): Qualifiers: COPD type: unspecified COPD Qualified Code(s): J44.9 - Chronic obstructive pulmonary disease, unspecified Code(s): J44.9 - Chronic obstructive pulmonary disease, unspecified Status: Chronic Assessment and Plan: * Stent appeared exacerbation on room air * Redo inhaler as needed (8) Hypomagnesemia: Code(s): E83.42 - Hypomagnesemia Status: Acute Assessment and Plan: * Magnesium 1.8 * Magnesium Oxide 400 mg PO BID. * Trend magnesium levels. (9) Hypophosphatemia: Code(s): E83.39 - Other disorders of phosphorus metabolism Status: Acute Assessment and Plan: * Phosphorus 3.0. * Monitor levels. Subjective Date/time seen: 02/03/25 12:07 Interval history: Patient sitting up in bed. Patient denies chest pain, palpitations, headache, dizziness, nausea, or vomiting. Review of Systems Review of Systems: All systems reviewed & are unremarkable except as noted in HPI and below Exam Const: General: comfortable and no acute distress Resp: Effort & Inspection: normal respiratory effort Auscultation: d iminished lung sounds Cardio: Rate: regular rate Rhythm: regular rhythm GI: GI Palp: Yes Soft to palpation Auscultation: normal bowel sounds Neuro: Speech: normal speech Extrem: General: no pedal edema Psych: Other: Oriented to person, hospital, and year. Objective Data Vital Signs Vital Signs: Vital Signs - 24 hr 02/02/25 14:00 02/02/25 20:06 02/02/25 20:09 Temperature 98.8 F Pulse Rate 101 H 101 H Respiratory Rate 18 Blood Pressure 118/79 Pulse Oximetry 98 93 Oxygen Delivery Room Air 02/02/25 20:27 02/02/25 20:30 02/02/25 22:00 Temperature 97.2 F L Pulse Rate 84 104 H 104 H Respiratory Rate 18 18 Blood Pressure 144/88 H Pulse Oximetry 96 96 Oxygen Delivery Room Air 02/03/25 04:00 02/03/25 08:00 02/03/25 09:14 Temperature 97.4 F L Pulse Rate 102 H Respiratory Rate 18 Blood Pressure 138/81 Pulse Oximetry 95 93 Oxygen Delivery Room Air Room Air 02/03/25 09:14 Temperature Pulse Rate 98 Respiratory Rate 20 Blood Pressure Pulse Oximetry Oxygen Delivery Intake/Output Intake/Output: Intake & Output 01/31/25 02/01/25 02/02/25 02/03/25 23:59 23:59 23:59 23:59 Intake Total 220 2712.5 1300 580 Output Total 1700 1600 1700 1000 Balance -1480 1112.5 -400 -420 Meds/Results Medications: Active Medications Generic Name Dose Route Start Last Admin Trade Name Freq PRN Reason Stop Dose Admin Acetaminophen 650 mg 01/30/25 10:57 Acetaminophen 325 Mg Tablet PO Q4H PRN Mild Pain (1-3) or Fever Albuterol 2 puff 01/31/25 11:39 Albuterol Sulfate (*Sp) Aerosol 1 Puff INHALATION Q6H PRN Shortness Of Breath Or Wheezing Allopurinol 300 mg 02/01/25 09:00 02/03/25 08:42 Allopurinol 300 Mg Tablet PO 300 mg DAILY RADHA Administration Apixaban 5 mg 01/31/25 17:00 02/03/25 08:42 Apixaban 5 Mg Tablet PO 5 mg BID RADHA Administration Atorvastatin Calcium 10 mg 02/01/25 09:00 02/03/25 08:42 Atorvastatin 10 Mg Tablet PO 10 mg DAILY RADHA Administration Baclofen 10 mg 01/31/25 11:39 Baclofen 10 Mg Tablet PO TID PRN Hiccups Calcium Carbonate 500 mg 02/01/25 09:00 02/03/25 08:45 Calcium Carbonate (Oscal) 500 Mg Tablet PO 500 mg QAM RADHA Administration Carvedilol 6.25 mg 02/01/25 13:20 02/03/25 08:41 Carvedilol 6.25 Mg Tablet PO 6.25 mg Q12HR RADHA Administration Cefdinir 300 mg 02/03/25 09:00 02/03/25 08:42 Cefdinir 300 Mg Capsule PO 02/05/25 21:01 300 mg Q12HR RADHA Administration Dextrose 12.5 gm 01/30/25 12:43 01/31/25 08:12 Dextrose 50% 25 Gm/50 Ml Syringe IV PUSH 12.5 gm PRN PRN Administration Hypoglycemia Protocol Docusate Sodium 100 mg 01/31/25 17:00 02/03/25 08:35 Docusate Sodium 100 Mg Capsule PO 100 mg BID RADHA Administration Glucagon 1 mg 01/30/25 12:43 Glucagon For Inj 1 Mg Vial IM PRN PRN Hypoglycemia Protocol Glucose 15 gm 01/30/25 12:43 Glucose Oral Gel 15 Gm Of Glucse In 37.5 Gm Tube PO PRN PRN Hypoglycemia Protocol Dextrose 1,000 mls @ 100 mls/hr 01/30/25 12:43 Dextrose 5% 1,000 Ml IVPB PRN PRN Hypoglycemia Protocol Insulin Aspart 2 - 5 units 01/30/25 17:00 02/03/25 11:51 Insulin Aspart (*Bkc) 100 Units/Ml SUB-Q Not Given TIDWM RADHA Protocol Magnesium Oxide 400 mg 02/01/25 10:00 02/03/25 08:42 Magnesium Oxide 400 Mg Tablet PO 400 mg BID RADHA Administration Montelukast Sodium 10 mg 02/01/25 09:00 02/03/25 08:42 Montelukast Sodium 10 Mg Tablet PO 10 mg DAILY RADHA Administration Ondansetron HCl 4 mg 01/30/25 12:21 Ondansetron Inj 4 Mg/2 Ml Vial IV PUSH Q6H PRN Nausea And Vomiting Pantoprazole Sodium 40 mg 01/30/25 12:50 02/03/25 08:44 Pantoprazole 40 Mg Tablet PO 40 mg QAM RADHA Administration Potassium Chloride 20 meq 02/01/25 13:25 02/03/25 08:41 Potassium Chloride 20 Meq Er Tablet PO 20 meq DAILY RADHA Administration Saccharomyces Boulardii 250 mg 01/31/25 17:00 02/03/25 08:41 Saccharomyces Boulardii 250 Mg Capsule PO 250 mg BID RADHA Administration Fluticasone/Salmeterol 2 puff 01/31/25 20:00 02/03/25 09:12 Fluticasone/Salmeterol 115-21 Mcg Inhaler 1 Puff INHALATION 2 puff Q12HRT RADHA Administration Sertraline HCl 25 mg 02/01/25 09:00 02/03/25 08:41 Sertraline Hcl 25 Mg Tablet PO 25 mg DAILY RADHA Administration Vitamin B Complex 1 cap 01/31/25 17:00 02/03/25 08:35 Vitamin B Complex Capsule PO 1 cap BID RADHA Administration Vitamin D 5,000 units 02/01/25 09:00 02/03/25 08:42 Cholecalciferol 5,000 Units Tablet BY MOUTH 5,000 units DAILY RADHA Administration Radiology Results: ITS Impressions Head CT 01/30/25 12:53 IMPRESSION: 1. Stable appearance of age-related changes including moderate diffuse volume loss and extensive white matter hypoattenuation consistent with chronic small vessel ischemic disease. No acute intracranial process. Brain MRI 01/31/25 07:45 IMPRESSION: 1. Worsened extensive nonspecific cerebral white matter disease and pontine disease, which likely represents chronic small vessel ischemic disease. Chest X-Ray 02/02/25 13:01 IMPRESSION: 1. 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 Modified Barium Swallow 02/02/25 13:09 IMPRESSION: 1. Laryngeal penetration. 2. Please refer to the speech therapy report for recommendations. Labs Labs: Laboratory Results - last 24 hr 02/02/25 02/02/25 02/03/25 16:20 20:31 05:38 WBC 6.4 RBC 4.09 L Hgb 12.5 Hct 39.1 MCV 95.6 MCH 30.6 MCHC 32.0 RDW 14.7 H Plt Count 269 MPV 9.4 Immature Gran % (Auto) 0.5 Neut % (Auto) 66.3 Lymph % (Auto) 17.6 L [place] % (Auto) 11.3 H Eos % (Auto) 3.8 Baso % (Auto) 0.5 Lymph # (Auto) 1.12 [place] # (Auto) 0.7 H Eos # (Auto) 0.2 Baso # (Auto) 0.0 Abs Immat Gran (auto) 0.03 Absolute Neuts (auto) 4.2 Absolute Nucleated RBC 0.000 Nucleated RBC % 0.0 Sodium 133 L Potassium 4.3 Chloride 102 Carbon Dioxide 27 Anion Gap 4 BUN 10 Creatinine 0.62 L Estim Creat Clear Calc 71 Estimated GFR > 60 Glucose 104 POC Capillary Glucose 102 109 H Calcium 8.7 Phosphorus 3.0 Magnesium 1.8 Total Bilirubin 0.6 AST 25 ALT 18 Alkaline Phosphatase 166 H Total Protein 7.0 Albumin 3.3 L 02/03/25 02/03/25 02/03/25 07:28 10:49 11:17 WBC RBC Hgb Hct MCV MCH MCHC RDW Plt Count MPV Immature Gran % (Auto) Neut % (Auto) Lymph % (Auto) [place] % (Auto) Eos % (Auto) Baso % (Auto) Lymph # (Auto) [place] # (Auto) Eos # (Auto) Baso # (Auto) Abs Immat Gran (auto) Absolute Neuts (auto) Absolute Nucleated RBC Nucleated RBC % Sodium Potassium Chloride Carbon Dioxide Anion Gap BUN Creatinine Estim Creat Clear Calc Estimated GFR Glucose POC Capillary Glucose 112 H 124 H 127 H Calcium Phosphorus Magnesium Total Bilirubin AST ALT Alkaline Phosphatase Total Protein Albumin Quality VTE Prophylaxis VTE prophylaxis: mechanical ordered and pharmacologic ordered
[2025-02-03 16:15] LABS: Glucose Point of Care 111 mg/dl (65-105)
[2025-02-03 20:08] LABS: Glucose Point of Care 111 mg/dl (65-105)
[2025-02-04 02:14] VITALS: PULSE 99; RESP 15; O2SAT 94
[2025-02-04 04:00] VITALS: BP 123/72; PULSE 94; RESP 13; TEMP 36.1; O2SAT 100
[2025-02-04 06:20] LABS: Basophils Percent Auto 0.7 % (0.2-1.2); Eosinophils Absolute Auto 0.3 K/mm3 (0-0.3); Eosinophils Percent Auto 4.7 % (0-4.4); Hematocrit 37.2 % (37.0-47.0); Hemoglobin 12.1 g/dL (12.0-15.0); Immature Granulocyte Absolute 0.03 K/mm3 (0.00-0.031); Immature Granulocyte Percent A 0.5 % (0-0.5); Lymphocytes Absolute Auto 1.05 K/mm3 (0.9-3.2); Lymphocytes Percent Auto 18.9 % (18.3-44.2); Mean Corpuscular HGB Conc 32.5 g/dl (32-36); Mean Corpuscular Hemoglobin 31.3 pg (26-34); Mean Corpuscular Volume 96.4 fl (80-100); Mean Platelet Volume 9.5 fl (7.4-10.4); Monocytes Absolute Auto 0.6 K/mm3 (0.1-0.6); Monocytes Percent Auto 11.2 % (2.6-8.5); Neutrophils Absolute Auto 3.6 K/mm3 (1.3-6.7); Platelet Count Result 264 k/mm3 (150-375); Red Blood Count 3.86 M/mm3 (4.2-5.4); White Blood Count 5.6 K/mm3 (4.5-10.0)
[2025-02-04 06:32] LABS: Alanine Aminotransferase 17 U/L (6-35); Albumin Level 3.2 g/dL (3.5-5.1); Alkaline Phosphatase 150 U/L (38-126); Anion Gap 6 mmol/L (4-12); Aspartate Amino Transferase 23 U/L (14-36); Bilirubin,Total 0.4 mg/dL (0.2-1.3); Blood Urea Nitrogen 12 mg/dL (7-17); Calcium 8.8 mg/dL (8.4-10.2); Carbon Dioxide 29 mmol/L (22-30); Chloride 99 mmol/L (98-107); Estimated CRCL calculation 66 ml/min; Estimated Glomerular Filt Rate > 60; Glucose 87 mg/dL (65-110); Magnesium 1.6 mg/dL (1.6-2.3); Phosphorus 3.4 mg/dL (2.5-4.5); Potassium 4.4 mmol/L (3.4-5.0); Sodium 134 mmol/L (137-145)
[2025-02-04 08:00] VITALS: BP 101/60; PULSE 93; RESP 16; TEMP 36.6; O2SAT 100
[2025-02-04 08:27] LABS: Glucose Point of Care 84 mg/dl (65-105)
[2025-02-04 08:48] VITALS: PULSE 94
[2025-02-04] MEDS: VITAMIN B COMPLEX CAPSULE 1 CAP PO ×2 (08:48→17:04)
[2025-02-04] MEDS: SACCHAROMYCES BOULARDII 250 MG CAPSULE PO ×2 (08:48→17:04)
[2025-02-04] MEDS: MAGNESIUM OXIDE 400 MG TABLET PO ×2 (08:48→17:04)
[2025-02-04] MEDS: carvediloL 6.25 MG TABLET PO (08:48)
[2025-02-04] MEDS: PANTOPRAZOLE 40 MG TABLET PO (08:49)
[2025-02-04] MEDS: DOCUSATE SODIUM 100 MG CAPSULE PO ×2 (08:49→17:04)
[2025-02-04] MEDS: CHOLECALCIFEROL 5,000 UNITS TABLET 5000 UNITS BY MOUTH (08:50)
[2025-02-04] MEDS: CEFDINIR 300 MG CAPSULE PO (08:50)
[2025-02-04] MEDS: allopurinoL 300 MG TABLET PO (08:50)
[2025-02-04] MEDS: ATORVASTATIN 10 MG TABLET PO (08:50)
[2025-02-04] MEDS: POTASSIUM CHLORIDE 20 MEQ ER TABLET PO (08:50)
[2025-02-04] MEDS: CALCIUM CARBONATE (OSCAL) 500 MG TABLET PO (08:50)
[2025-02-04] MEDS: MONTELUKAST SODIUM 10 MG TABLET PO (08:51)
[2025-02-04] MEDS: SERTRALINE HCL 25 MG TABLET PO (08:51)
[2025-02-04] MEDS: APIXABAN 5 MG TABLET PO ×2 (08:51→17:04)
[2025-02-04] MEDS: FLUTICASONE/SALMETEROL 115-21 MCG INHALER 1 PUFF 2 PUFF INHALATION (09:00)
[2025-02-04 12:00] VITALS: BP 98/56; PULSE 89; RESP 16; TEMP 36.8; O2SAT 100
[2025-02-04 12:18] LABS: Glucose Point of Care 148 mg/dl (65-105)
--- NOTE | 2025-02-04 13:23 | P.DS_ITS ---
DS: Admitting Diagnosis Discharge Date 02/04/2025 Admitting Diagnosis Acute metabolic encephalopathy with a UTI an JOSE ALBERTO DS: Discharge Diagnosis Discharge Diagnosis (1) Altered mental status: Qualifiers: Altered mental status type: unspecified Qualified Code(s): R41.82 - Altered mental status, unspecified Code(s): R41.82 - Altered mental status, unspecified Status: Acute Assessment and Plan: Unknown baseline sister Zoë reported bedridden was able to feed self but would only answer with on word phrases currently nonverbal except for 2 no's. * CT head with no acute intracranial process * Could be secondary to urinary tract infection * MRI of brain today showed: FINDINGS: There are scattered areas of nonspecific increased T2-weighted signal intensity in the cerebral white matter and adrian. There is no intracranial hemorrhage, acute infarction, or abnormal intracranial mass lesion. The ventricles are normal in size. There are bilateral mastoid effusions. There is mild mucosal thickening in the paranasal sinuses. The orbits are normal. IMPRESSION: 1. Worsened extensive nonspecific cerebral white matter disease and pontine disease, which likely represents chronic small vessel ischemic disease. * Patient is now speaking in sentences. Alert to person, at hospital, January, and year. * Modified Barium swallow today: FINDINGS: There is reduced laryngeal elevation and laryngeal penetration. IMPRESSION: 1. Laryngeal penetration. 2. Please refer to the speech therapy report for recommendations. * Patient diet Pureed level 4 with moderate thick liquids. Patient needs to sit up in chair to eat and be supervised. * Chest X-ray today showed: FINDINGS: There are airspace opacities in right perihilar region and right lung apex with staple lines and volume loss. There is mild scarring at left lung apex. No pleural effusion or pneumothorax. The heart size is normal. Surgical clips in the right upper quadrant are likely from cholecystectomy. IMPRESSION: 1. 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 * Patient talking in complete sentences. Oriented to person, hospital, and year. (2) Acute UTI: Code(s): N39.0 - Urinary tract infection, site not specified Status: Acute Assessment and Plan: Patient presented with AMS and lethargy * UA nitrate+, Leukocyte, >100 WBC, 4+ bacteriuria * Past to urinary tract infection/Klebsiella pneumoniae and E coli both pansensitive except resistant to Macrobid * IV Rocephin switched to Cefdinir 300 mg PO q 12. * Normal WBC and afebrile continue to monitor for any signs of sepsis * Urine culture grew E coli. (3) JOSE ALBERTO (acute kidney injury): Code(s): N17.9 - Acute kidney failure, unspecified Status: Acute Assessment and Plan: * Likely secondary to UTI and dehydration * Creatinine improved from 2.30>0.97>0.63>0.62. * Avoid nephrotoxic drugs. * Monitor antihypertensive drug therapy. * Avoid NSAIDs. * Routine CMP monitoring GFR. * Monitor electrolytes especially potassium. * Antibiotic doses depending on creatinine clearance. (4) HTN (hypertension): Qualifiers: Hypertension type: unspecified Qualified Code(s): I10 - Essential (primary) hypertension Code(s): I10 - Essential (primary) hypertension Status: Chronic Assessment and Plan: * BP 138/81. * Coreg 6.25 mg PO BID. * Would hold and discontinue her lisinopril and hydrochlorothiazide * BP per unit protocol (5) Diabetes mellitus with hyperglycemia: Code(s): E11.65 - Type 2 diabetes mellitus with hyperglycemia Status: Acute Assessment and Plan: * Accu-Cheks carla HS * sliding scale insulin * hold oral diabetic medications metformin * Hemoglobin A1c pending * Diabetic diet * Watch for hypoglycemia/hypoglycemic protocol ordered (6) GERD (gastroesophageal reflux disease): Code(s): K21.9 - Gastro-esophageal reflux disease without esophagitis Status: Acute Assessment and Plan: * added Protonix (7) COPD (chronic obstructive pulmonary disease): Qualifiers: COPD type: unspecified COPD Qualified Code(s): J44.9 - Chronic obstructive pulmonary disease, unspecified Code(s): J44.9 - Chronic obstructive pulmonary disease, unspecified Status: Chronic Assessment and Plan: * Stent appeared exacerbation on room air * Redo inhaler as needed (8) Hypomagnesemia: Code(s): E83.42 - Hypomagnesemia Status: Acute Assessment and Plan: * Magnesium 1.8 * Magnesium Oxide 400 mg PO BID. * Trend magnesium levels. (9) Hypophosphatemia: Code(s): E83.39 - Other disorders of phosphorus metabolism Status: Acute Assessment and Plan: * Phosphorus 3.0. * Monitor levels. DS: Summary Hospital Course Hospital Course: Patient 74-year-old female with past medical history GERD, arthritis, lung cancer, DVT, ANTONELLA, hypertension who presented the ED with complaints of altered mental status. Process. CT of the head was performed showed no acute process. MRI of the brain showed T weighted signal indicating old infarct however there was no acute infarct noted. Patient was positive for UTI with nitrates, leukoc ytosis greater than 100 white blood cell count bacteria. Patient was initiated on IV Rocephin which was switched to cefdinir. Culture did come back positive for E coli. Patient did have an JOSE ALBERTO with a creatinine of 2.30 which has improved to 0.62. Blood pressures been stable blood pressure medications have been little continued. Glucose has also been stable. Currently patient is doing well she states she is little tired. She denies any chest pain, shortness a breath, nausea, vomiting, diarrhea or constipation. At this time patient is stable for discharge per labs and vital signs. Patient will return back to the senior care with outpatient antibiotics and will need to follow up with her primary care provider for further care instruction. Status at Discharge Functional status at discharge: bed bound Overall status at discharge: patient is progressing back to baseline Time Spent with Patient Time attestation: Total time spent providing and/or coordinating discharge services: 39 minutes Time spent: Greater than 30 minutes Specific discharge activities: Diagnostic testing, chart review, developing a treatment plan, education, care coordination documentation, physical exam, result review Exam Narrative: General: well-nourished, tired-appearing 74-year-old female, sitting up in bed, comfortable, NARD Neuro: awake, alert and oriented x4, speech clear, no focal neuro deficits noted HEENMT: normocephalic, atraumatic, EOMI, sclerae anicteric, moist oral mucosa Respiratory: Clear to auscultation bilaterally without crackles, rhonchi or wheezes, nonlabored breathing Cardio: regular rate, regular rhythm with S1-S2 Abdomen: nondistended, normoactive bowel sounds, soft, nontender to palpation Extremities: no edema, erythema, or tenderness to palpation, DP pulses 2+ bilaterally Skin: no rashes or lesions, warm and dry Psych: appropriate mood and affect, judgment and insight intact DS: Data Data Completed and Pending Labs on day of discharge: Labs from last 24 hours 02/04/25 02/04/25 02/04/25 12:04 08:22 05:42 WBC 5.6 RBC 3.86 L Hgb 12.1 Hct 37.2 MCV 96.4 MCH 31.3 MCHC 32.5 RDW 15.0 H Plt Count 264 MPV 9.5 Immature Gran % (Auto) 0.5 Neut % (Auto) 64.0 Lymph % (Auto) 18.9 [place] % (Auto) 11.2 H Eos % (Auto) 4.7 H Baso % (Auto) 0.7 Lymph # (Auto) 1.05 [place] # (Auto) 0.6 Eos # (Auto) 0.3 Baso # (Auto) 0.0 Abs Immat Gran (auto) 0.03 Absolute Neuts (auto) 3.6 Absolute Nucleated RBC 0.000 Nucleated RBC % 0.0 Sodium 134 L Potassium 4.4 Chloride 99 Carbon Dioxide 29 Anion Gap 6 BUN 12 Creatinine 0.68 L Estim Creat Clear Calc 66 Estimated GFR > 60 Glucose 87 POC Capillary Glucose 148 H 84 Calcium 8.8 Phosphorus 3.4 Magnesium 1.6 Total Bilirubin 0.4 AST 23 ALT 17 Alkaline Phosphatase 150 H Total Protein 6.0 L Albumin 3.2 L 02/03/25 02/03/25 20:03 16:13 WBC RBC Hgb Hct MCV MCH MCHC RDW Plt Count MPV Immature Gran % (Auto) Neut % (Auto) Lymph % (Auto) [place] % (Auto) Eos % (Auto) Baso % (Auto) Lymph # (Auto) [place] # (Auto) Eos # (Auto) Baso # (Auto) Abs Immat Gran (auto) Absolute Neuts (auto) Absolute Nucleated RBC Nucleated RBC % Sodium Potassium Chloride Carbon Dioxide Anion Gap BUN Creatinine Estim Creat Clear Calc Estimated GFR Glucose POC Capillary Glucose 111 H 111 H Calcium Phosphorus Magnesium Total Bilirubin AST ALT Alkaline Phosphatase Total Protein Albumin Discharge Plan Discharge Attending physician on discharge: Nesha Watters Consulting providers: Marium West Discharging Clinician: Wing Oliveros Patient Disposition: [facility] Activity: may shower, unlimited and as tolerated Diet: heart healthy, diabetic and other - see discharge instructions Discharge Instructions: * Take all medications as prescribed even if feeling better * Eat well balanced meals and stay hydrated continue thickened liquids and pureed diet * Keep active to remain strong * Avoid use of diapers or pads * Good harrison Care every 2 hours * Trend urine output * If you should experience any chest pain, shortness of breath, temps >100.4 or any other worrisome symptoms please follow up with your PCP come back to the hospital * Follow up with your primary in 1 weeks * It has been a pleasure taking care of you thank you for using our services Patient Instructions: Antibiotic Form, Apixaban (By mouth) Patient Language: Hungarian Stand Alone Forms: General Discharge Information Follow-up/Referrals: Omega,Jacky Segura MD [Primary Care Provider] - 1 Week Discharge Medications: New cefdinir 300 mg Capsule 300 mg PO Q12HR Qty: 10 0RF Continued carvedilol 6.25 mg tablet 6.25 mg PO Q12H Rx Instructions: must administer with a meal/food calcium carbonate [Calcium 600] 600 mg calcium (1,500 mg) tablet 600 mg PO DAILY metformin 500 mg tablet 500 mg PO BID omeprazole 40 mg capsule,delayed release(DR/EC) 40 mg PO DAILY baclofen 10 mg tablet 10 mg PO TID PRN (Reason: Hiccups) vitamin B complex Capsule 1 cap PO BID Eliquis 5 mg Tablet 5 mg PO BID allopurinol 100 mg tablet 300 mg PO DAILY Patient Comments: new prescription lisinopril-hydrochlorothiazide 20-12.5 mg tablet 1 tablet PO HS montelukast 10 mg tablet 10 mg PO DAILY acetaminophen 500 mg Tablet 500 mg PO Q6H PRN (Reason: Pain (Scale Score 1-3)) albuterol sulfate [Ventolin HFA] 90 mcg/actuation HFA aerosol inhaler 2 puff INHALATION Q6H PRN (Reason: Shortness Of Breath Or Wheezing) fluticasone propion-salmeterol [Advair Diskus] 250-50 mcg/dose blister with device 1 inh inhalation Q12H docusate sodium [Colace] 100 mg capsule 100 mg PO BID magnesium oxide 400 mg magnesium tablet 400 mg PO DAILY potassium chloride [K-Tab] 20 mEq tablet extended release 20 meq PO DAILY Saccharomyces boulardii [Daily Probiotic (S. boulardii)] 250 mg capsule 250 mg PO BID sertraline [Zoloft] 25 mg tablet 25 mg PO DAILY cholecalciferol (vitamin D3) 125 mcg (5,000 unit) tablet 125 mcg PO DAILY atorvastatin 10 mg Tablet 10 mg PO DAILY Qty: 30 0RF Date of admission: 01/30/25 10:58 Primary Care Provider: GutierrezJacky Admitting Provider: Dwain Herbert Attending physician on admission: Dwain Herbert Condition: Stable Quality VTE Prophylaxis VTE prophylaxis: mechanical ordered and pharmacologic ordered Hospitalist MIPS Heart Failure (Exclusion) Patient has history of Heart Transplant or Left Ventricular Assistive Device?: No IF YES, STOP HERE Heart Failure (Qualifier) Patient has current or prior documentation of LVEF less than or equal to 40%, or mod/servere depressed LVSF?: No IF NO, STOP HERE
[2025-02-04 16:49] LABS: Glucose Point of Care 97 mg/dl (65-105)
== END 2025-02-04 17:40 | DRG 689 ==
LOC: ANHED 11:36 → ANH3MEDSUR 12:06
PROVIDERS: Nurse Practitioner Family; Admitting Provider General Practice; Emergency Provider Family Medicine; PCP Internal Medicine; Visit Provider Nurse Practitioner
DX: N39.0 Urinary tract infection, site not specified (principal); G93.41 Metabolic encephalopathy; Z16.39 Resistance to other specified antimicrobial drug; N17.9 Acute kidney failure, unspecified; B96.20 Unspecified Escherichia coli [E. coli] as the cause of diseases classified elsewhere; E86.0 Dehydration; I10 Essential (primary) hypertension; E11.65 Type 2 diabetes mellitus with hyperglycemia; E83.39 Other disorders of phosphorus metabolism; K21.9 Gastro-esophageal reflux disease without esophagitis; M17.12 Unilateral primary osteoarthritis, left knee; J44.9 Chronic obstructive pulmonary disease, unspecified; E83.42 Hypomagnesemia; Z96.651 Presence of right artificial knee joint; G47.33 Obstructive sleep apnea (adult) (pediatric); Z85.118 Personal history of other malignant neoplasm of bronchus and lung; Z85.89 Personal history of malignant neoplasm of other organs and systems; Z86.718 Personal history of other venous thrombosis and embolism; Z79.01 Long term (current) use of anticoagulants; Z86.711 Personal history of pulmonary embolism; Z86.73 Personal history of transient ischemic attack (TIA), and cerebral infarction without residual deficits; Z90.49 Acquired absence of other specified parts of digestive tract
CPT/HCPCS: 36415; 70450; 70551; 71045; 80053; 81001; 82948; 83036; 83735; 84100; 85025; 85610; 85730; 87086; 87186; 92526; 92610; 92611; 93005; 94640; 96360; 99285; A9270; J0696; J3475; J7030

== ENCOUNTER 2025-04-25 18:36 | Inpatient (IN) | payer MEDICARE, SELFPAY ==
[2025-04-25] VITALS (9 sets, daily range): BP systolic 94–105; BP diastolic 40–72; PULSE 98–130; RESP 18–30; TEMP 36.6–36.7; O2SAT 95–99; BMI 29.9
--- NOTE | ~2025-04-25 | XR_ITS ---
XR chest 1V portable Ordering provider: Jatin Lucio MD History: 74 years Female with . AMS . Comparison: February 02, 2025 FINDINGS: MEDIASTINUM: The cardiac silhouette is slightly enlarged. Widening of the superior mediastinum. Narro wing of the right main bronchus. LUNGS: Mass is seen in the right tracheobronchial area and in the right hilum. No effusions or pneumo thorax. Bilateral basal opacification suggestive of pneumonia versus atelectasis. Opacification the r ight apical area which may be pleural thickening. OTHER: No free air under the diaphragm. IMPRESSION: No significant change from previous examination. Widening of the superior mediastinum with masses and postradiation changes in the right apical area. Bibasilar opacification which may indicate atelectasis versus pneumonia. Clinical correlation advised . Reviewed, dictated and finalized at location A. IMPRESSION: No significant change from previous examination. Widening of the superior mediastinum with masses and postradiation changes in t he right apical area. Bibasilar opacification which may indicate atelectasis versus pneumonia. Clinic al correlation advised.
--- NOTE | ~2025-04-25 | CT_ITS ---
CT chest abdomen pelvis w con Ordering provider: Jatin Lucio MD History: 74 years Female with . Sepsis, Non-Verbal . Comparison: July 13, 2024 Technique: CT chest with IV contrast. CT abdomen and pelvis CT abdomen and pelvis with IV and with or al contrast. Radiation reduction technique utilized.The dose-length product was 1365.49 mGy-cm. 100 mL Omnipaque 3 50 was given IV. FINDINGS: CHEST: --VISUALIZED THORACIC INLET: Normal. --MEDIASTINUM: Aorta/coronary arteries: Mild atheromatous disease. Heart/other: The heart is not enlarged. Lymph nodes: No mediastinal or hilar adenopathy. Prevascular lymph node measuring 1.2 cm and 1.4 cm a re noted. --LUNGS: Lobar Pneumonia versus atelectasis is seen in the right upper lobe underlying mass cannot be excluded. Follow-up to resolution advised. Pneumonia in the right lower lobe is also noted. Minimal pneumonia changes are seen in the left lower lobe. . No effusions. No pneumothorax. --MUSCULOSKELETAL: Soft tissues: The superficial soft tissues are normal. Bones: Age appropriate degenerative changes of the spine. No suspicious bony lytic or sclerotic lesio ns. Rib resection is seen in the right fifth rib posteriorly. Old healed fracture in the manubrium is see n ABDOMEN/PELVIS: --MUSCULOSKELETAL: Bones: Age appropriate degenerative changes of the spine. No suspicious bony lytic or sclerotic lesio ns. Superficial soft tissues: The superficial soft tissues are normal. --UPPER ABDOMINAL ORGANS: Liver: Hepatomegaly. Gallbladder: status post cholecystectomy. Spleen: Normal. Stomach/duodenum: Sliding hiatus hernia Pancreas: Atrophic changes with slightly prominent pancreatic duct. Adrenals: Normal. Kidneys: Normal. --PELVIC ORGANS: The bladder is underfilled with slightly thickened wall. Evaluation for cystitis adv ised. No bladder stones. --BOWEL AND MESENTERY: Colon: No evidence of diverticulitis. Fecal material is loaded in the colon.. Normal appendix. Small Bowel: Normal. No obstruction. Peritoneum/mesentery: No free air or free fluid. No mesenteric lymphadenopathy. --RETROPERITONEUM: Mild atheromatous disease of the abdominal aorta. No retroperitoneal lymphadenop athy. IMPRESSION: CHEST: 1. Pneumonia versus atelectasis in the right upper lobe. Underlying mass cannot be excluded. Follow- up to resolution is advised. 2. Pneumonia in the right and left lower lobe. 3. Prevascular enlarged lymph nodes. ABDOMEN/PELVIS: 1. No evidence of appendicitis, diverticulitis or intestinal obstruction. 2. Hepatomegaly 3. Sliding hiatus hernia. 4. Constipation. Reviewed, dictated and finalized at location A. IMPRESSION: CHEST: 1. Pneumonia versus atelectasis in the right upper lobe. Underlying mass canno t be excluded. Follow-up to resolution is advised. 2. Pneumonia in the right and left lower lobe. 3. Prevascular enlarged lymph nodes. ABDOMEN/PELVIS: 1. No evidence of appendicitis, diverticulitis or intestinal obstruction. 2. Hepatomegaly 3. Sliding hiatus hernia. 4. Constipation.
--- NOTE | ~2025-04-25 | XR_ITS ---
MODIFIED ESOPHAGRAM HISTORY: Assess for aspiration TECHNIQUE: Modified barium esophagram was performed on 04/27/2025. I administered fluoroscopy and perf ormed the exam with speech pathologist. Patient was seated for lateral fluoroscopic imaging for dennis stion of thin liquids, pudding, solids and quantified amounts, followed by thin liquids in uncontroll ed amounts. This was recorded on tape. A single fluoroscopic spot image was also recorded. The DAP fo r this procedure was 4.57 Gycm2. The amount of fluoroscopy time used during this procedure was 4.9 mi nutes. FINDINGS: Oral stage: Adequate function. Pharyngeal stage: Reduced laryngeal elevation and adduction. Reduced tongue base retraction. There is significant vallecular residue with all consistencies secondary to reduced tongue base retraction. T here is laryngeal penetration without aspiration with multiple consistencies. Cervical/esophageal stage: Adequate function. IMPRESSION: Pharyngeal dysphagia with laryngeal penetration without aspiration with multiple consiste ncies. Please correlate with speech pathologist findings and specific feeding recommendations. Reviewed, dictated and finalized at location A. IMPRESSION: Pharyngeal dysphagia with laryngeal penetration without aspiration with multiple consistencies. Please correlate with speech pathologist findings and specific feeding recommendations.
--- NOTE | ~2025-04-25 | CT_ITS ---
CT brain wo con Ordering provider: Jatin Lucio MD History: 74 years Female with . AMS . Comparison: July 15, 2024 Technique: CT of the head without contrast. Radiation reduction technique utilized.The dose-length pr oduct was 605.33 mGy-cm. FINDINGS: BRAIN PARENCHYMA AND CSF SPACES: Mild leukoaraiosis and diffuse cortical atrophy. Mild atheromatous d isease. No midline shift, mass effect or hemorrhage. The brain parenchyma and CSF spaces are otherwi se normal. VISUALIZED PARANASAL SINUSES: Bilateral maxillary sinus disease. Bilateral ethmoid sinus disease. MASTOIDS: Well aerated. BONES: The bones appear intact. 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 Clinical evaluation advised. Otherwise, Visualized nasopharynx is normal. Superficial s oft tissues are normal. IMPRESSION: No acute intracranial findings. Reviewed, dictated and finalized at location A.
--- NOTE | 2025-04-25 18:38 | ECG_ITS ---
Test Date: 2025-04-25 19:29:26 Measurements Intervals [place] Rate: 127 P: 43 RI: 148 QRS: 17 QRSD: 89 T: 56 QT: 335 QTc: 488 Interpretive Statements SINUS TACHYCARDIA LOW QRS VOLTAGE IN PRECORDIAL LEADS BORDERLINE ST-T WAVE ABNORMALITY- DIFFUSE LEADS BASELINE ARTIFACT- I, II, III, AVR, AVL, AVF, V1-V6 ABNORMAL ECG Compared to ECG 01/30/2025 08:47:18 HEART RATE HAS INCRESAED Electronically Signed On 04-25-2025 20:19:45 CDT by Simon Olivares D.O.
[2025-04-25 19:04] LABS: Hematocrit 36.1 % (37.0-47.0); Hemoglobin 11.8 g/dL (12.0-15.0); Mean Corpuscular HGB Conc 32.7 g/dl (32-36); Mean Corpuscular Hemoglobin 30.8 pg (26-34); Mean Corpuscular Volume 94.3 fl (80-100); Mean Platelet Volume 8.9 fl (7.4-10.4); Platelet Count Result 289 k/mm3 (150-375); Red Blood Count 3.83 M/mm3 (4.2-5.4); Red Cell Distribution Width 14.1 % (11.5-14.5); White Blood Count 15.2 K/mm3 (4.5-10.0)
--- NOTE | 2025-04-25 19:05 | ED_ITS ---
HPI - General Adult General Chief complaint: Shortness of Breath/Dyspnea Stated complaint: DIFFICULTY IN BREATHING Time Seen by Provider: 04/25/25 18:38 History of Present Illness HPI narrative: This is a 74-year-old female presenting for difficulty breathing. Per the intermediate patient became altered and was found to be hypoxic in her room earlier today. She is placed on oxygen EMS was called. EMS arrived the patient was febrile and tachycardic. Sepsis alert was activated and the hospital for evaluation. At the moment the patient can not answer her name but cannot answer any other questions to guide a workup. Related Data Home Medications ?Medication ?Instructions ?Recorded ?Confirmed ?Last Taken ?Type baclofen 10 mg tablet 10 mg PO TID PRN Hiccups 09/23/19 04/26/25 01/21/20 History metformin 500 mg tablet 500 mg PO BID 09/23/19 04/26/25 01/21/20 History omeprazole 40 mg capsule,delayed 40 mg PO DAILY 09/23/19 04/26/25 01/21/20 History release vitamin B complex 1 cap PO BID 09/23/19 04/26/25 01/21/20 History allopurinol 100 mg tablet 300 mg PO DAILY 01/21/20 04/26/25 Unknown History apixaban 5 mg tablet (Eliquis) 5 mg PO BID 01/21/20 04/26/25 03/18/21 History acetaminophen 500 mg tablet 500 mg PO Q6H PRN Pain (Scale 02/18/23 04/26/25 Unknown History Score 1-3) albuterol sulfate 90 mcg/actuation 2 puff inhalation Q6H PRN 02/18/23 04/26/25 Unknown History aerosol inhaler (Ventolin HFA) Shortness Of Breath Or Wheezing lisinopril 20 1 tablet PO HS 02/18/23 04/26/25 Unknown History mg-hydrochlorothiazide 12.5 mg tablet montelukast 10 mg tablet 10 mg PO DAILY 02/18/23 04/26/25 Unknown History calcium carbonate (Calcium 600) 600 mg PO DAILY 05/28/23 04/26/25 Unknown History carvedilol 6.25 mg tablet 6.25 mg PO Q12H 09/07/23 04/26/25 Unknown History Saccharomyces boulardii 250 mg 250 mg PO BID 01/30/25 04/26/25 Unknown History capsule (Daily Probiotic (S. boulardii)) cholecalciferol (vitamin D3) 125 125 mcg PO DAILY 01/30/25 04/26/25 Unknown History mcg (5,000 unit) tablet docusate sodium 100 mg capsule 100 mg PO BID 01/30/25 04/26/25 Unknown History (Colace) fluticasone 250 mcg-salmeterol 50 1 inh inhalation Q12H 01/30/25 04/26/25 Unknown History mcg/dose blistr powdr for inhalation (Advair Diskus) magnesium oxide 400 mg PO DAILY 01/30/25 04/26/25 Unknown History potassium chloride 20 mEq 20 meq PO DAILY 01/30/25 04/26/25 Unknown History tablet,extended release (K-Tab) sertraline 25 mg tablet (Zoloft) 25 mg PO DAILY 01/30/25 04/26/25 Unknown History Allergies Allergy/AdvReac Type Severity Reaction Status Date / Time diclofenac Allergy Severe sob Verified 07/12/24 17:18 Penicillins Allergy Intermediate Itching Verified 07/12/24 17:18 penicillin V Allergy Itching Verified 07/12/24 17:18 [facility] Past Medical History Medical History (Updated 04/26/25 @ 07:07 by Nicole Porras DO) Pulmonary hypertension DVT (deep venous thrombosis) Orthostatic hypotension Peripheral neuropathy due to chemotherapy Essential hypertension GERD without esophagitis Gout Inflammatory arthritis Adenomatous colon polyp Osteoarthritis of left knee History of chemotherapy Hx of radiation therapy Shingles Lung cancer Diabetes last A1C=5.9 (10/2019) Hx of pulmonary embolus on Elliquis Sleep apnea Obesity Cancer lung and lymphnodes 2012 and 2014 COPD (chronic obstructive pulmonary disease) uses inhaler, right upper lobe removed lung cancer 2012;lower lobe and lymphnodes 2014 Hypercholesterolemia CVA (cerebral vascular accident) 06/2018 TPA administered and rehab-pt states now no residual effect Surgical History Surgical History (Updated 04/26/25 @ 01:26 by Nicole Porras DO) Status post right partial knee replacement (2014) Dr. Ferrari History of dilatation and curettage History of removal of Port-a-Cath Hx of total hysterectomy History of esophagogastroduodenoscopy (EGD) Hx of colonoscopy Hx of cholecystectomy Hx of tonsillectomy History of lobectomy of lung Family History Family History Mother Carcinoma of colon Cerebrovascular accident Father Family history of heart disease in male family member before age 55 Sibling Family history of hypercholesterolemia Hypertension Glaucoma Other Family history of lung cancer Family history of malignant neoplasm of bone Family history of malignant neoplasm of urinary bladder Social History Social History (Updated 04/26/25 @ 01:27 by Nicole Porras DO) Social History: She is . She has no children. Her sister is her poa. She is Retired from banking. She denies alcohol use and marjuana. She lives at [facility]. Code status listed as Full Code on SNF facility; previously noted to be modified code no intubation per emr. Smoking packs per day: 1 Smoking cigarettes per day: 20.0 Years smoked: 30 Smoking pack-years: 30.00 Smoking status: Former smoker Second hand tobacco smoke exposure: No Alcohol intake: never Substance use: never Do You Feel Safe in your Home?: Yes Lack of Transportation: No Lack of Food: Never True Current Housing: I Have Housing Concerned About Future Housing: No Difficulty Paying Gas/Electric Bills: No Difficulty Paying for Meds: No Currently Unemployed: No Education: Associate Degree Difficulty w/ Childcare or Family Care: No Living arrangements: intermediate Gender identity (if verbalized by the patient): Female Spiritual care concerns: No Agree to blood products: Yes Exam 2 Narrative: APPEARANCE: Ill-appearing Head: atraumatic. EYES: EOMI, NOSE: Atraumatic NECK: Trachea midline RESPIRATORY: Tachypneic, hypoxic on room air scattered rhonchi CARDIOVASCULAR: Tachycardic, no peripheral edema ABDOMINAL: Non-distended soft nontender MUSCULOSKELETAl: No obvious deformities NEURO: Alert. Moving 4/4 extremities SKIN::Pale, Clammy PSYCHIATRIC: Normal affect Course Vital Signs Vital signs: Vital Signs Temperature 98.0 F 04/25/25 18:39 Pulse Rate 130 H 04/25/25 18:39 Respiratory Rate 30 H 04/25/25 18:39 Pulse Oximetry 99 04/25/25 18:39 Oxygen Delivery Room Air 04/25/25 18:39 Temperature 97.9 F 04/26/25 08:00 Pulse Rate 100 04/26/25 08:57 Respiratory Rate 20 04/26/25 08:57 Blood Pressure 110/54 L 04/26/25 08:00 Pulse Oximetry 96 04/26/25 08:38 Oxygen Delivery Nasal Cannula 04/26/25 08:38 Oxygen Flow Rate 4 04/26/25 08:38 Medical Decision Making MDM Narrative Medical decision making narrative: -Course: 74-year-old female presenting ED for altered mental status. On arrival she is hypoxic on room air. Placed on supplemental oxygen. She is tachycardic and warm to touch. She is given a 30 cc/kilogram bolus and started on cefepime and vancomycin while her workup is being completed. Patient signed out to the oncoming physician pending completion of her workup. Vital Signs Vital Signs: Vital Signs Temperature 98.0 F 04/25/25 18:39 Pulse Rate 130 H 04/25/25 18:39 Respiratory Rate 30 H 04/25/25 18:39 Pulse Oximetry 99 04/25/25 18:39 Oxygen Delivery Room Air 04/25/25 18:39 Temperature 97.9 F 04/26/25 08:00 Pulse Rate 100 04/26/25 08:57 Respiratory Rate 20 04/26/25 08:57 Blood Pressure 110/54 L 04/26/25 08:00 Pulse Oximetry 96 04/26/25 08:38 Oxygen Delivery Nasal Cannula 04/26/25 08:38 Oxygen Flow Rate 4 04/26/25 08:38 Lab Data 04/26/25 04:28 04/26/25 04:28 Labs: Lab Results 04/25/25 04/25/25 04/25/25 Range/Units 18:55 18:57 20:39 WBC 15.2 H (4.5-10.0) K/mm3 RBC 3.83 L (4.2-5.4) M/mm3 Hgb 11.8 L (12.0-15.0) g/dL Hct 36.1 L (37.0-47.0) % MCV 94.3 (80-100) fl MCH 30.8 (26-34) pg MCHC 32.7 (32-36) g/dl RDW 14.1 (11.5-14.5) % Plt Count 289 (150-375) k/mm3 MPV 8.9 (7.4-10.4) fl Immature Gran % (Auto) Not Reportable Neut % (Auto) Not Reportable Lymph % (Auto) Not Reportable [place] % (Auto) Not Reportable Eos % (Auto) Not Reportable Baso % (Auto) Not Reportable Lymph # (Auto) Not Reportable [place] # (Auto) Not Reportable Eos # (Auto) Not Reportable Baso # (Auto) Not Reportable Abs Immat Gran (auto) Not Reportable Absolute Neuts (auto) Not Reportable Absolute Nucleated RBC Not Reportable Total Counted 100 Neutrophils % (Manual) 79 H (46-73) % Band Neutrophils % 12 H (0-6) % Monocytes % (Manual) 7 (3-9) % Eosinophils % (Manual) 1 (0-4) % Basophils % (Manual) 1 (0-1) % Nucleated RBC % Not Reportable Abs Neuts (Manual) 13.83 H (1.3-6.7) K/mm3 Abs Monocytes (Manual) 1.06 H (0.1-0.90) K/mm3 Absolute Eos (Manual) 0.15 (0.02-0.50) K/mm3 Abs Basophils (Manual) 0.15 H (0.0-0.1) K/mm3 Platelet Estimate Adequate (Adequate) Clumped Platelets Present Schistocytes None seen PT 14.6 (11.1-14.7) Seconds INR 1.1 APTT 34.7 (22.3-36.8) Seconds Sodium 133 L (137-145) mmol/L Potassium 3.7 (3.4-5.0) mmol/L Chloride 96 L (98-107) mmol/L Carbon Dioxide 26 (22-30) mmol/L Anion Gap 11 (4-12) mmol/L BUN 16 (7-17) mg/dL Creatinine 0.65 L (0.7-1.0) mg/dL Estim Creat Clear Calc 71 ml/min Estimated GFR > 60 (59 - ) Glucose 122 H (65-110) mg/dL Lactic Acid 1.1 (0.7-2.0) mmol/L Calcium 8.9 (8.4-10.2) mg/dL Magnesium 0.8 L (1.6-2.3) mg/dL Total Bilirubin 0.3 (0.2-1.3) mg/dL AST 30 (14-36) U/L ALT 18 (6-35) U/L Alkaline Phosphatase 137 H (38-126) U/L Troponin I < 0.012 (0.000-0.034) ng/mL Total Protein 7.2 (6.3-8.2) g/dL Albumin 3.6 (3.5-5.1) g/dL Lipase 61 (23-300) U/L Procalcitonin 0.8 ng/mL TSH (Reflex) 1.020 (0.465-4.68) uIU/mL Urine Color Yellow (Yellow) Urine Appearance Clear (Clear) Urine pH 5.5 (5.0-9.0) Ur Specific [place] 1.029 (1.001-1.035) Urine Protein Negative (Negative) mg/dL Urine Glucose (UA) Negative (Negative) mg/dL Urine Ketones Trace H (Negative) mg/dL Ur Blood (Man) Negative (Negative) Urine Nitrate Positive H (Negative) Urine Bilirubin Negative (Negative) Urine Urobilinogen 0.2 (<2.0) mg/dL Add Ur Microanalysis Reviewed Leukocyte Esterase Rfl 2+ H (Negative) JARRETT/UL Urine RBC 0-2 (0-2) /hpf Urine WBC 21-50 H (0-3) /hpf Ur Squamous Epith Cells None seen (Few) /hpf Urine Bacteria 2+ H /hpf Urine Casts 3-5 Urine Mucus Present /lpf Influenza A (RT-PCR) Negative (Negative) Influenza B (RT-PCR) Negative (Negative) RSV (RT-PCR) Negative (Negative) SARS-CoV-2 RNA (RT-PCR) Negative (Negative) ABG Data ABG results: 04/25/25 19:03 VBG pH 7.503 H* VBG pCO2 32.5 L VBG pO2 56.4 H VBG HCO3 24.9 O2 Delivery Device Nasal cannula O2 Liters/Min 5.0 FiO2 40 Discharge Plan Discharge Clinical Impression: Sepsis Qualifiers: Sepsis type: sepsis due to unspecified organism Sepsis acute organ dysfunction status: with acute organ dysfunction Severe sepsis acute organ dysfunction type: acute respiratory failure Acute respiratory failure type: with hypoxia Severe sepsis shock status: without septic shock Qualified Code(s): A41.9 - Sepsis, unspecified organism Patient Disposition: Still a Patient Condition: Serious
[2025-04-25 19:06] LABS: Fractional Inspired Oxygen 40 %; HCO3 VBG 24.9 mEq/l (24.0-30.0); PCO2 VBG 32.5 mmHg (42.0-48.0); PO2 VBG 56.4 mmHg (35.0-45.0)
[2025-04-25 19:07] LABS: Device NASAL CANNULA; pH VBG 7.503 (7.300-7.400)
[2025-04-25 19:15] LABS: Alanine Aminotransferase 18 U/L (6-35); Albumin Level 3.6 g/dL (3.5-5.1); Alkaline Phosphatase 137 U/L (38-126); Anion Gap 11 mmol/L (4-12); Aspartate Amino Transferase 30 U/L (14-36); Bilirubin,Total 0.3 mg/dL (0.2-1.3); Blood Urea Nitrogen 16 mg/dL (7-17); Calcium 8.9 mg/dL (8.4-10.2); Carbon Dioxide 26 mmol/L (22-30); Chloride 96 mmol/L (98-107); Estimated CRCL calculation 71 ml/min; Estimated Glomerular Filt Rate > 60; Glucose 122 mg/dL (65-110); INR 1.1; Lactic Acid Reflex 1.1 mmol/L (0.7-2.0); Lipase 61 U/L (23-300); Magnesium 0.8 mg/dL (1.6-2.3); Potassium 3.7 mmol/L (3.4-5.0); Prothrombin Time 14.6 Seconds (11.1-14.7); Sodium 133 mmol/L (137-145); Total Protein 7.2 g/dL (6.3-8.2)
[2025-04-25 19:16] LABS: Partial Thromboplastin Time 34.7 Seconds (22.3-36.8)
[2025-04-25] MEDS: LACTATED RINGERS 1,000 ML 999 ML IV CONT ×3 (19:17→19:18)
[2025-04-25] MEDS: ACETAMINOPHEN 500 MG TABLET 1000 MG PO (19:17)
[2025-04-25 19:27] LABS: Troponin I < 0.012 ng/mL (0.000-0.034)
[2025-04-25 19:31] LABS: Band Neutrophils Percent 12 % (0-6); Basophils Absolute Manual 0.15 K/mm3 (0.0-0.1); Basophils Percent Manual 1 % (0-1); Eosinophils Absolute Manual 0.15 K/mm3 (0.02-0.50); Eosinophils Percent Manual 1 % (0-4); Monocytes Absolute Manual 1.06 K/mm3 (0.1-0.90); Monocytes Percent Manual 7 % (3-9); Neutrophils Absolute Manual 13.83 K/mm3 (1.3-6.7); Neutrophils Percent Manual 79 % (46-73); Platelet Clumps Present; Platelet Estimate Adequate (Adequate); Total Cells Counted 100
[2025-04-25 19:32] LABS: Schistocytes None Seen
[2025-04-25 19:42] LABS: Influenza A QL RT-PCR Negative (Negative); Influenza B QL RT-PCR Negative (Negative); RSV RNA, RT-PCR Negative (Negative); SARS-CoV-2 RNA PCR Negative (Negative)
[2025-04-25] MEDS: CEFEPIME 2 GM/NS 50 ML 2 GM/50 ML BAG IVPB (19:45)
--- NOTE | 2025-04-25 20:45 | PC.NURSE ---
Pt having increased coughing and looks like she is increased work of breathing. pulse ox 94%. EDP Dr. Niño made aware. No new orders at this time.
[2025-04-25] MEDS: VANCOMYCIN 2,000 MG/NS 500 ML 2,000 MG/500 ML BAG 250 MG IVPB (20:56)
[2025-04-25 21:04] LABS: Add Urine Microscopic? YES; Appearance Urine Clear (Clear); Bacteria Urine 2+ /hpf; Bilirubin Urine Negative (Negative); Blood Urine Negative (Negative); Color Urine Yellow (Yellow); Glucose Urine UA Negative (Negative); Ketones Urine Trace mg/dL (Negative); Leukocyte Esterase Ur 2+ LEU/UL (Negative); Mucus Urine Present /lpf; Need Manual Microscopic Reviewed; Nitrate Urine Positive (Negative); Protein Urine Negative (Negative); RBC Urine 0-2 /hpf (0-2); Specific Grav Ur 1.029 (1.001-1.035); Squamous Epithelial Cell Urine None Seen /hpf (Few); Urobilinogen Urine 0.2 mg/dL (<2.0); WBC Urine 21-50 /hpf (0-3); pH Urine 5.5 (5.0-9.0)
[2025-04-25] MEDS: MAGNESIUM SULF 2 GM/WATER 50ML 2 GM/50 ML BAG IVPB (21:05)
[2025-04-25] MEDS: SODIUM CHLORIDE 0.9% IV 500 ML 999 ML IV CONT (21:30)
[2025-04-25 22:10] LABS: Procalcitonin 0.8 ng/mL
--- NOTE | 2025-04-25 22:59 | ADMGEN ---
This patient, Zoe Hogue Dia, was admitted to IMU Room 206-01. Patient/family oriented to hospital policies and general routines including ID bracelet, bed and alarms, visiting hours, pain management, procedures, bathroom and other care routines, personal items, smoking policy, room service/diet, and visiting hours. Information on how to activate the Rapid Response Team has been discussed. Patient/Family are encouraged to report perceived risks to care and to ask questions if they do not understand what they are told or what they should do.
[2025-04-25] MEDS: SODIUM CHLORIDE 0.9% IV 1,000 ML 125 ML IV CONT (23:15)
[2025-04-25] MEDS: DOXYCYCLINE 100 MG/NS 100 ML 100 MG/100 ML BAG IVPB (23:17)
[2025-04-26] VITALS (23 sets, daily range): BP systolic 98–129; BP diastolic 53–69; PULSE 89–120; RESP 16–24; TEMP 36.4–37; O2SAT 96–100
--- NOTE | 2025-04-26 01:04 | PM.IMHP ---
H&P: HPI History of Present Illness Date/Time: 04/26/25 01:04 Chief Complaint: Increased work of breathing Narrative: 74-year-old female with a past medical history CVA, memory loss, COPD, lung cancer status post resection and radiation therapy who presented to the ER via EMS from [facility] due to increased work of breathing. Patient was satting 85% on 2 L nasal cannula in she received it nebulizer treatment and Ventolin inhaler without improvement in symptoms. EMS give patient another DuoNeb treatment and the patient's oxygen saturations improved with the increased her oxygen of 4 L nasal cannula. Patient is reportedly only alert orient x2-3 with baseline but was alert orient x1 on arrival to the ER. At the time my evaluation the patient was alert oriented person, place and year but was confused as to the month. Although she was alert oriented to these fax she was not a very good historian regarding symptoms are duration of symptoms. As such, the majority of the history was obtained from assisted records, EMS records and ER physician report/nursing report. The patient initially told nursing staff that she had not been having any diarrhea. After nursing had finished the admit process and mother repositioning the patient in bed she had a large incontinent bowel movement she then stated that she is only having diarrhea when she eats. She denies having any abdominal pain. She was noted to be coughing quite vigorously at the time of my evaluation. She states that she has been coughing ?for a while?. It is unclear if the cough is productive or not. She reports that she is not on oxygen at the assisted. She denies any nausea or vomiting. She has had decreased appetite. She denies any urinary symptoms but is obviously incontinent of urine. She denies any chest pain. Patient was afebrile on presentation to the ER but was mildly hypotensive with blood pressures in the mid to low 90s systolic and tachypneic and tachycardic. Labs demonstrated elevated white count of 15 and a left shift with 12% bands, VBG demonstrated respiratory alkalosis and sodium was 133 which is patient's baseline. UA was suggestive of UTI with nitrates 2+ esterase 21-50 wbc's and 2+ bacteria. Chest x-ray demonstrated white in superior mediastinum with masses and postradiation changes right apical area and bibasilar opacification which could be atelectasis or pneumonia. CT chest abdomen pelvis with contrast demonstrated pneumonia versus atelectasis right upper lobe underlying mass cannot be excluded pneumonia the right and left lower lobe with Kyra vascular lymphadenopathy and incidentally found hepatomegaly, sliding hiatal hernia and constipation. However despite the CT demonstrating possible constipation after patient arrived to the intermediate unit the patient had an extremely large diarrheal bowel movement. The patient's bowel movement seems consistent with C diff. The patient does have a history of C diff approximately a year ago. It does not appear that she has been on recent antibiotic therapy at all. She states that she has been having diarrhea for a few weeks. She then stated that she may have been having diarrhea for up to fiber 6 weeks. It is unclear duration of symptoms. Review of Systems Review of Systems: Review of systems was attempted but limited the patient is not the best historian despite being alert oriented to person place and year. She could also tell me the name of her assisted. [facility] Past Medical History Medical History (Updated 04/26/25 @ 07:07 by Nicole Porras DO) Pulmonary hypertension DVT (deep venous thrombosis) Orthostatic hypotension Peripheral neuropathy due to chemotherapy Essential hypertension GERD without esophagitis Gout Inflammatory arthritis Adenomatous colon polyp Osteoarthritis of left knee History of chemotherapy Hx of radiation therapy Shingles Lung cancer Diabetes last A1C=5.9 (10/2019) Hx of pulmonary embolus on Elliquis Sleep apnea Obesity Cancer lung and lymphnodes 2012 and 2014 COPD (chronic obstructive pulmonary disease) uses inhaler, right upper lobe removed lung cancer 2012;lower lobe and lymphnodes 2014 Hypercholesterolemia CVA (cerebral vascular accident) 06/2018 TPA administered and rehab-pt states now no residual effect Surgical History Surgical History (Updated 04/26/25 @ 01:26 by Nicole Porras DO) Status post right partial knee replacement (2014) Dr. Ferrari History of dilatation and curettage History of removal of Port-a-Cath Hx of total hysterectomy History of esophagogastroduodenoscopy (EGD) Hx of colonoscopy Hx of cholecystectomy Hx of tonsillectomy History of lobectomy of lung Family History Family History Mother Carcinoma of colon Cerebrovascular accident Father Family history of heart disease in male family member before age 55 Sibling Family history of hypercholesterolemia Hypertension Glaucoma Other Family history of lung cancer Family history of malignant neoplasm of bone Family history of malignant neoplasm of urinary bladder Social History Social History (Updated 04/26/25 @ 01:27 by Nicole Porras DO) Social History: She is . She has no children. Her sister is her poa. She is Retired from banking. She denies alcohol use and marjuana. She lives at [facility]. Code status listed as Full Code on SNF facility; previously noted to be modified code no intubation per emr. Smoking packs per day: 1 Smoking cigarettes per day: 20.0 Years smoked: 30 Smoking pack-years: 30.00 Smoking status: Former smoker Second hand tobacco smoke exposure: No Alcohol intake: never Substance use: never Do You Feel Safe in your Home?: Yes Lack of Transportation: No Lack of Food: Never True Current Housing: I Have Housing Concerned About Future Housing: No Difficulty Paying Gas/Electric Bills: No Difficulty Paying for Meds: No Currently Unemployed: No Education: Associate Degree Difficulty w/ Childcare or Family Care: No Living arrangements: assisted Gender identity (if verbalized by the patient): Female Spiritual care concerns: No Agree to blood products: Yes Meds Home Medications and Allergies Home Medications ?Medication ?Instructions ?Recorded ?Confirmed ?Type baclofen 10 mg tablet 10 mg PO TID PRN Hiccups 09/23/19 04/26/25 History metformin 500 mg tablet 500 mg PO BID 09/23/19 04/26/25 History omeprazole 40 mg capsule,delayed 40 mg PO DAILY 09/23/19 04/26/25 History release vitamin B complex 1 cap PO BID 09/23/19 04/26/25 History allopurinol 100 mg tablet 300 mg PO DAILY 01/21/20 04/26/25 History apixaban 5 mg tablet (Eliquis) 5 mg PO BID 01/21/20 04/26/25 History acetaminophen 500 mg tablet 500 mg PO Q6H PRN Pain (Scale 02/18/23 04/26/25 History Score 1-3) albuterol sulfate 90 mcg/actuation 2 puff inhalation Q6H PRN 02/18/23 04/26/25 History aerosol inhaler (Ventolin HFA) Shortness Of Breath Or Wheezing lisinopril 20 1 tablet PO HS 02/18/23 04/26/25 History mg-hydrochlorothiazide 12.5 mg tablet montelukast 10 mg tablet 10 mg PO DAILY 02/18/23 04/26/25 History atorvastatin 10 mg tablet 10 mg PO DAILY #30 tabs 03/03/23 04/26/25 Rx calcium carbonate (Calcium 600) 600 mg PO DAILY 05/28/23 04/26/25 History carvedilol 6.25 mg tablet 6.25 mg PO Q12H 09/07/23 04/26/25 History Saccharomyces boulardii 250 mg 250 mg PO BID 01/30/25 04/26/25 History capsule (Daily Probiotic (S. boulardii)) cholecalciferol (vitamin D3) 125 125 mcg PO DAILY 01/30/25 04/26/25 History mcg (5,000 unit) tablet docusate sodium 100 mg capsule 100 mg PO BID 01/30/25 04/26/25 History (Colace) fluticasone 250 mcg-salmeterol 50 1 inh inhalation Q12H 01/30/25 04/26/25 History mcg/dose blistr powdr for inhalation (Advair Diskus) magnesium oxide 400 mg PO DAILY 01/30/25 04/26/25 History potassium chloride 20 mEq 20 meq PO DAILY 01/30/25 04/26/25 History tablet,extended release (K-Tab) sertraline 25 mg tablet (Zoloft) 25 mg PO DAILY 01/30/25 04/26/25 History Allergies Allergy/AdvReac Type Severity Reaction Status Date / Time diclofenac Allergy Severe sob Verified 07/12/24 17:18 Penicillins Allergy Intermediate Itching Verified 07/12/24 17:18 penicillin V Allergy Itching Verified 07/12/24 17:18 Vital Signs Vital Signs - 24 hr 04/25/25 18:39 04/25/25 19:12 04/25/25 19:31 Temperature 98.0 F Pulse Rate 130 H Respiratory Rate 30 H Blood Pressure 94/72 L Pulse Oximetry 99 97 Oxygen Delivery Room Air Nasal Cannula Oxygen Flow Rate 3 04/25/25 21:46 04/25/25 22:01 04/25/25 22:50 Temperature 97.8 F Pulse Rate 111 H 108 H 106 H Respiratory Rate 25 H 19 18 Blood Pressure 96/40 L 98/66 L 105/54 L Pulse Oximetry 96 98 95 Oxygen Delivery Oxygen Flow Rate 04/25/25 23:42 04/25/25 23:46 04/25/25 23:47 Temperature Pulse Rate 98 98 Respiratory Rate 18 Blood Pressure Pulse Oximetry 95 95 Oxygen Delivery Nasal Cannula Nasal Cannula Oxygen Flow Rate 3 3 04/26/25 00:00 Temperature 98.0 F Pulse Rate 101 H Respiratory Rate 16 Blood Pressure 98/54 L Pulse Oximetry 98 Oxygen Delivery Oxygen Flow Rate Exam Narrative: Weight 81.7 kg BMI 30 Const: Other: Acutely ill-appearing, elderly, obese HENMT: Other: Mucous membranes are tacky, no oral pharyngeal erythema, fair dentition Eyes: Other: Positive conjunctival pallor, no scleral icterus Neck: Other: No JVD, no lymphadenopathy Resp: Other: Tachypnea, diffuse wheezing anterior lung persaud, crackles at the bases and laterally Cardio: Other: Mild Sinus tachycardia, no JVD, 2+ bilateral radial pedal pulses GI: Other: Soft, nontender, hypoactive bowel sounds, nondistended : Other: Incontinent of urine, depends in place Skin: Other: Generalized pallor, diaphoretic, warm to touch Neuro: Other: Alert oriented to person, place, year but confused as to the month, speech is clear but responsive somewhat slowed, follows all commands, no localizing neurologic deficits noted during the course of conversation Extrem: Other: No clubbing, cyanosis or edema, generalized weakness, 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 Psych: Other: Flat affect, cooperative H&P: Results Labs Labs: Laboratory Tests 04/25/25 18:57 04/25/25 18:57 04/25/25 04/25/25 04/25/25 18:55 18:57 19:03 WBC 15.2 H RBC 3.83 L Hgb 11.8 L Hct 36.1 L MCV 94.3 MCH 30.8 MCHC 32.7 RDW 14.1 Plt Count 289 MPV 8.9 Immature Gran % (Auto) Not Reportable Neut % (Auto) Not Reportable Lymph % (Auto) Not Reportable [place] % (Auto) Not Reportable Eos % (Auto) Not Reportable Baso % (Auto) Not Reportable Lymph # (Auto) Not Reportable [place] # (Auto) Not Reportable Eos # (Auto) Not Reportable Baso # (Auto) Not Reportable Abs Immat Gran (auto) Not Reportable Absolute Neuts (auto) Not Reportable Absolute Nucleated RBC Not Reportable Total Counted 100 Neutrophils % (Manual) 79 H Band Neutrophils % 12 H Monocytes % (Manual) 7 Eosinophils % (Manual) 1 Basophils % (Manual) 1 Nucleated RBC % Not Reportable Abs Neuts (Manual) 13.83 H Abs Monocytes (Manual) 1.06 H Absolute Eos (Manual) 0.15 Abs Basophils (Manual) 0.15 H Platelet Estimate Adequate Clumped Platelets Present Schistocytes None seen PT 14.6 INR 1.1 APTT 34.7 VBG pH 7.503 H* VBG pCO2 32.5 L VBG pO2 56.4 H VBG HCO3 24.9 O2 Delivery Device Nasal cannula O2 Liters/Min 5.0 FiO2 40 Sodium 133 L Potassium 3.7 Chloride 96 L Carbon Dioxide 26 Anion Gap 11 BUN 16 Creatinine 0.65 L Estim Creat Clear Calc 71 Estimated GFR > 60 Glucose 122 H Lactic Acid 1.1 Calcium 8.9 Magnesium 0.8 L Total Bilirubin 0.3 AST 30 ALT 18 Alkaline Phosphatase 137 H Troponin I < 0.012 Total Protein 7.2 Albumin 3.6 Lipase 61 Procalcitonin 0.8 TSH (Reflex) 1.020 Urine Color Urine Appearance Urine pH Ur Specific [place] Urine Protein Urine Glucose (UA) Urine Ketones Ur Blood (Man) Urine Nitrate Urine Bilirubin Urine Urobilinogen Add Ur Microanalysis Leukocyte Esterase Rfl Urine RBC Urine WBC Ur Squamous Epith Cells Urine Bacteria Urine Casts Urine Mucus C. difficile (PCR) Influenza A (RT-PCR) Negative Influenza B (RT-PCR) Negative RSV (RT-PCR) Negative SARS-CoV-2 RNA (RT-PCR) Negative 04/25/25 04/26/25 20:39 01:15 WBC RBC Hgb Hct MCV MCH MCHC RDW Plt Count MPV Immature Gran % (Auto) Neut % (Auto) Lymph % (Auto) [place] % (Auto) Eos % (Auto) Baso % (Auto) Lymph # (Auto) [place] # (Auto) Eos # (Auto) Baso # (Auto) Abs Immat Gran (auto) Absolute Neuts (auto) Absolute Nucleated RBC Total Counted Neutrophils % (Manual) Band Neutrophils % Monocytes % (Manual) Eosinophils % (Manual) Basophils % (Manual) Nucleated RBC % Abs Neuts (Manual) Abs Monocytes (Manual) Absolute Eos (Manual) Abs Basophils (Manual) Platelet Estimate Clumped Platelets Schistocytes PT INR APTT VBG pH VBG pCO2 VBG pO2 VBG HCO3 O2 Delivery Device O2 Liters/Min FiO2 Sodium Potassium Chloride Carbon Dioxide Anion Gap BUN Creatinine Estim Creat Clear Calc Estimated GFR Glucose Lactic Acid Calcium Magnesium Total Bilirubin AST ALT Alkaline Phosphatase Troponin I Total Protein Albumin Lipase Procalcitonin TSH (Reflex) Urine Color Yellow Urine Appearance Clear Urine pH 5.5 Ur Specific [place] 1.029 Urine Protein Negative Urine Glucose (UA) Negative Urine Ketones Trace H Ur Blood (Man) Negative Urine Nitrate Positive H Urine Bilirubin Negative Urine Urobilinogen 0.2 Add Ur Microanalysis Reviewed Leukocyte Esterase Rfl 2+ H Urine RBC 0-2 Urine WBC 21-50 H Ur Squamous Epith Cells None seen Urine Bacteria 2+ H Urine Casts 3-5 Urine Mucus Present C. difficile (PCR) Pending Influenza A (RT-PCR) Influenza B (RT-PCR) RSV (RT-PCR) SARS-CoV-2 RNA (RT-PCR) Impressions Chest X-Ray 04/25/25 19:28 IMPRESSION: No significant change from previous examination. Widening of the superior mediastinum with masses and postradiation changes in the right apical area. Bibasilar opacification which may indicate atelectasis versus pneumonia. Clinical correlation advised. Head CT 04/25/25 20:40 IMPRESSION: No acute intracranial findings. Chest/Abdomen/Pelvis CT 04/25/25 21:12 IMPRESSION: CHEST: 1. Pneumonia versus atelectasis in the right upper lobe. Underlying mass cannot be excluded. Follow-up to resolution is advised. 2. Pneumonia in the right and left lower lobe. 3. Prevascular enlarged lymph nodes. ABDOMEN/PELVIS: 1. No evidence of appendicitis, diverticulitis or intestinal obstruction. 2. Hepatomegaly 3. Sliding hiatus hernia. 4. Constipation. Test Date: 2025-04-25 19:29:26 Measurements Intervals [place] Rate: 127 P: 43 MD: 148 QRS: 17 QRSD: 89 T: 56 QT: 335 QTc: 488 Interpretive Statements SINUS TACHYCARDIA LOW QRS VOLTAGE IN PRECORDIAL LEADS BORDERLINE ST-T WAVE ABNORMALITY- DIFFUSE LEADS BASELINE ARTIFACT- I, II, III, AVR, AVL, AVF, V1-V6 ABNORMAL ECG Compared to ECG 01/30/2025 08:47:18 HEART RATE HAS INCRESAED Assessment and Plan Assessment and plan (1) Sepsis: Qualifiers: Sepsis acute organ dysfunction status: with acute organ dysfunction Sepsis type: sepsis due to unspecified organism Severe sepsis acute organ dysfunction type: acute respiratory failure Severe sepsis shock status: without septic shock Acute respiratory failure type: with hypoxia Qualified Code(s): A41.9 - Sepsis, unspecified organism; R65.20 - Severe sepsis without septic shock; J96.01 - Acute respiratory failure with hypoxia Code(s): A41.9 - Sepsis, unspecified organism Status: Acute (2) Pneumonia: Qualifiers: Laterality: bilateral Lung location: lower lobe of lung Pneumonia type: due to unspecified organism Qualified Code(s): J18.9 - Pneumonia, unspecified organism Code(s): J18.9 - Pneumonia, unspecified organism Status: Acute (3) Acute hypoxic respiratory failure: Code(s): J96.01 - Acute respiratory failure with hypoxia Status: Acute (4) COPD (chronic obstructive pulmonary disease): Qualifiers: COPD type: unspecified COPD Qualified Code(s): J44.9 - Chronic obstructive pulmonary disease, unspecified Code(s): J44.9 - Chronic obstructive pulmonary disease, unspecified Status: Acute (5) C. difficile colitis: Code(s): A04.72 - Enterocolitis due to Clostridium difficile, not specified as recurrent Status: Acute (6) Hypomagnesemia: Code(s): E83.42 - Hypomagnesemia Status: Acute Plan Patient fit sepsis criteria with tachycardia, tachypnea and leukocytosis with left shift (bandemia) in the setting of pneumonia and C diff colitis. Patient has been started on empiric antibiotic therapy with cefepime, vancomycin and will add doxycycline for atypical coverage. Blood cultures have been obtained and are pending. Patient does have acute hypoxic respiratory failure likely multifactorial due to underlying pneumonia and chronic COPD with acute exacerbation due to lower respiratory tract infection. Will deescalate antibiotics as cultures result. Will check urine Legionella and pneumococcal antigen. Will check mycoplasma titer. Patient's COVID flu and RSV PCR were negative. Will place patient on scheduled nebulizer treatments with DuoNeb. Will hold off on the addition of steroids. Will wean oxygen as tolerated. Patient did have an abnormal urinalysis but this is less likely to be the cause for the patient's infectious state. Urine cultures pending. Patient has been started on antibiotics with Dificid for C diff. she does have a history of C diff but as far as I can tell her last episode of C diff was about a year ago. Will continue probiotics. Patient did have significant hypomagnesemia. Patient received 4 g magnesium sulfate rider. Repeat magnesium level has been ordered for a.m. will continue maintenance IV fluids due to borderline low blood pressures and persistent tachycardia. Tachycardia is sinus in nature in due to sepsis. Will continue to treat underlying cause of tachycardia. No further cardiac evaluation needed at this time. Once tachycardia has resolved will decrease fluid rate to avoid volume overload given patient's history of pulmonary hypertension. Will repeat CBC and electrolyte panel in a.m.. MEDICAL DECISION MAKING NARRATIVE -Spoke with the ED provider in detail regarding patient's evaluation, workup and management -Patient seen and examined at bedside -Collaborated with patient's nurse at the bedside in detail and addressed all concerns -Labs, electrolytes, radiology, investigations and test results reviewed -ED/Consult/Nursing/Ancilliary notes on the chart reviewed and appreciated -Spoke with patient at bedside and all questions answered. Quality VTE Prophylaxis VTE prophylaxis: pharmacologic ordered (Continue home Eliquis) Hospitalist [facility] Advance Care Plan I have confirmed that the patient's Advanced Care Plan is present, code status is documented, or surrogate decision maker is listed in patient medical record.: Yes Medication Reconciliation I have utilized all available resources to obtain, update and review the patients current medications (includes all prescriptions, OTC, herbals, cannabis, and nutritional supplements).: Yes
[2025-04-26] MEDS: MAGNESIUM SULF 2 GM/WATER 50ML 2 GM/50 ML BAG IVPB (01:51)
[2025-04-26 02:16] LABS: Toxigenic C. Diff POSITIVE (NEGATIVE)
[2025-04-26 04:38] LABS: Basophils Percent Auto 0.2 % (0.2-1.2); Eosinophils Percent Auto 0.1 % (0-4.4); Hematocrit 29.8 % (37.0-47.0); Hemoglobin 9.7 g/dL (12.0-15.0); Immature Granulocyte Absolute 0.06 K/mm3 (0.00-0.031); Immature Granulocyte Percent A 0.4 % (0-0.5); Lymphocytes Percent Auto 6.5 % (18.3-44.2); Mean Corpuscular HGB Conc 32.6 g/dl (32-36); Mean Corpuscular Hemoglobin 31.1 pg (26-34); Mean Corpuscular Volume 95.5 fl (80-100); Mean Platelet Volume 9.3 fl (7.4-10.4); Monocytes Absolute Auto 0.9 K/mm3 (0.1-0.6); Monocytes Percent Auto 6.2 % (2.6-8.5); Neutrophils Percent Auto 86.6 % (45.5-73.1); Platelet Count Result 220 k/mm3 (150-375); Red Blood Count 3.12 M/mm3 (4.2-5.4); Red Cell Distribution Width 14.2 % (11.5-14.5); White Blood Count 13.8 K/mm3 (4.5-10.0)
[2025-04-26] MEDS: CEFEPIME 2 GM/NS 50 ML 2 GM/50 ML BAG IVPB ×3 (04:41→20:43)
[2025-04-26 04:54] LABS: Anion Gap 5 mmol/L (4-12); Blood Urea Nitrogen 13 mg/dL (7-17); Calcium 8.1 mg/dL (8.4-10.2); Carbon Dioxide 27 mmol/L (22-30); Chloride 101 mmol/L (98-107); Estimated CRCL calculation 69 ml/min; Estimated Glomerular Filt Rate > 60; Glucose 95 mg/dL (65-110); Potassium 3.6 mmol/L (3.4-5.0); Sodium 133 mmol/L (137-145)
[2025-04-26 07:57] LABS: Glucose Point of Care 91 mg/dl (65-105)
[2025-04-26] MEDS: IPRATROPIUM 0.5 MG/ALBUTEROL SULFATE 2.5 MG AMPUL.NEB 3 ML INHALATION ×3 (08:36→21:20)
[2025-04-26] MEDS: FLUTICASONE/SALMETEROL 115-21 MCG INHALER 1 PUFF 2 PUFF INHALATION (08:36)
[2025-04-26] MEDS: MONTELUKAST SODIUM 10 MG TABLET PO (08:37)
[2025-04-26] MEDS: SERTRALINE HCL 25 MG TABLET PO (08:37)
[2025-04-26] MEDS: SACCHAROMYCES BOULARDII 250 MG CAPSULE PO ×2 (08:38→16:52)
[2025-04-26] MEDS: POTASSIUM CHLORIDE 20 MEQ ER TABLET PO (08:38)
[2025-04-26] MEDS: CHOLECALCIFEROL (VITAMIN D3) 125 MCG (5,000 UNITS) TABLET PO (08:38)
[2025-04-26] MEDS: APIXABAN 5 MG TABLET PO ×2 (08:38→16:52)
[2025-04-26] MEDS: PANTOPRAZOLE 40 MG TABLET PO ×2 (08:39→20:43)
[2025-04-26] MEDS: MAGNESIUM OXIDE 400 MG TABLET PO (08:39)
[2025-04-26] MEDS: allopurinoL 300 MG TABLET PO (08:39)
[2025-04-26] MEDS: VITAMIN B COMPLEX CAPSULE 1 CAP PO ×2 (08:39→16:53)
[2025-04-26] MEDS: FIDAXOMICIN 200 MG TABLET PO ×2 (08:40→20:43)
[2025-04-26] MEDS: CALCIUM CARBONATE (OSCAL) 500 MG TABLET PO (08:40)
[2025-04-26] MEDS: DOXYCYCLINE 100 MG/NS 100 ML 100 MG/100 ML BAG IVPB ×2 (09:00→21:16)
--- NOTE | 2025-04-26 12:36 | PM.IMPN ---
Progress Note: A&P Assessment and Plan (1) Sepsis: Qualifiers: Acute respiratory failure type: with hypoxia Sepsis acute organ dysfunction status: with acute organ dysfunction Sepsis type: sepsis due to unspecified organism Severe sepsis acute organ dysfunction type: acute respiratory failure Severe sepsis shock status: without septic shock Qualified Code(s): A41.9 - Sepsis, unspecified organism; R65.20 - Severe sepsis without septic shock; J96.01 - Acute respiratory failure with hypoxia Code(s): A41.9 - Sepsis, unspecified organism Status: Acute (2) Pneumonia: Qualifiers: Pneumonia type: due to unspecified organism Laterality: bilateral Lung location: lower lobe of lung Qualified Code(s): J18.9 - Pneumonia, unspecified organism Code(s): J18.9 - Pneumonia, unspecified organism Status: Acute (3) Acute hypoxic respiratory failure: Code(s): J96.01 - Acute respiratory failure with hypoxia Status: Acute (4) COPD (chronic obstructive pulmonary disease): Qualifiers: COPD type: unspecified COPD Qualified Code(s): J44.9 - Chronic obstructive pulmonary disease, unspecified Code(s): J44.9 - Chronic obstructive pulmonary disease, unspecified Status: Acute (5) C. difficile colitis: Code(s): A04.72 - Enterocolitis due to Clostridium difficile, not specified as recurrent Status: Acute (6) Hypomagnesemia: Code(s): E83.42 - Hypomagnesemia Status: Acute Plan Sepsis improving From Pneumonia CT chest showed right lower lobe on Rocephin and Doxycycline f/u cultures, gentle rehydration C diff diarrhea C diff pCr positive Continue Dificid monitor Pneumonia continue above care ACute hypoxemic respiratory failure on 3 liters oxygen, no oxygen at baseline continue titrating oxygen COPD continue home bronchodilators Anemia hb 9.8 Iron panel and FOBT ordered monitor H and h Hx of lung ca s/p resenction and radiation therapy DVT on Eliquis DVT prophylaxis on Eliquis Subjective Date/time seen: 04/26/25 12:36 Interval history: Comfortable at bedside and had 3 bowel movement last night and no diarrhea this mornign at the of this encounter Review of Systems Review of Systems: Review of systems was attempted but limited the patient is not the best historian despite being alert oriented to person place and year. She could also tell me the name of her care home. ROS unobtainable: Yes unobtainable due to mental status Exam Narrative: Weight 81.7 kg BMI 30 Const: Other: Acutely ill-appearing, elderly, obese HENMT: Other: Mucous membranes are tacky, no oral pharyngeal erythema, fair dentition Eyes: Other: Positive conjunctival pallor, no scleral icterus Neck: Other: No JVD, no lymphadenopathy Resp: Other: Tachypnea, diffuse wheezing anterior lung persaud, crackles at the bases and laterally Cardio: Other: Mild Sinus tachycardia, no JVD, 2+ bilateral radial pedal pulses GI: Other: Soft, nontender, hypoactive bowel sounds, nondistended : Other: Incontinent of urine, depends in place Skin: Other: Generalized pallor, diaphoretic, warm to touch Neuro: Other: Alert oriented to person, place, year but confused as to the month, speech is clear but responsive somewhat slowed, follows all commands, no localizing neurologic deficits noted during the course of conversation Extrem: Other: No clubbing, cyanosis or edema, generalized weakness, 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 Psych: Other: Flat affect, cooperative Objective Data Vital Signs Vital Signs: Vital Signs - 24 hr 04/25/25 18:39 04/25/25 19:12 04/25/25 19:31 Temperature 98.0 F Pulse Rate 130 H Respiratory Rate 30 H Blood Pressure 94/72 L Pulse Oximetry 99 97 Oxygen Delivery Room Air Nasal Cannula Oxygen Flow Rate 3 04/25/25 21:46 04/25/25 22:01 04/25/25 22:50 Temperature 97.8 F Pulse Rate 111 H 108 H 106 H Respiratory Rate 25 H 19 18 Blood Pressure 96/40 L 98/66 L 105/54 L Pulse Oximetry 96 98 95 Oxygen Delivery Oxygen Flow Rate 04/25/25 23:42 04/25/25 23:46 04/25/25 23:47 Temperature Pulse Rate 98 98 Respiratory Rate 18 Blood Pressure Pulse Oximetry 95 95 Oxygen Delivery Nasal Cannula Nasal Cannula Oxygen Flow Rate 3 3 04/26/25 00:00 04/26/25 00:00 04/26/25 02:00 Temperature 98.0 F Pulse Rate 101 H 100 89 Respiratory Rate 16 Blood Pressure 98/54 L Pulse Oximetry 98 Oxygen Delivery Oxygen Flow Rate 04/26/25 03:48 04/26/25 04:00 04/26/25 04:00 Temperature 97.6 F Pulse Rate 89 91 92 Respiratory Rate 16 18 Blood Pressure 117/64 Pulse Oximetry 98 100 Oxygen Delivery Nasal Cannula Oxygen Flow Rate 3 04/26/25 06:00 04/26/25 08:00 04/26/25 08:00 Temperature 97.9 F Pulse Rate 92 98 100 Respiratory Rate 18 16 Blood Pressure 110/54 L Pulse Oximetry 97 98 Oxygen Delivery Nasal Cannula Oxygen Flow Rate 3 04/26/25 08:00 04/26/25 08:38 04/26/25 08:38 Temperature Pulse Rate 105 H 97 Respiratory Rate 20 Blood Pressure Pulse Oximetry 96 Oxygen Delivery Nasal Cannula Oxygen Flow Rate 4 04/26/25 08:57 04/26/25 10:00 04/26/25 11:57 Temperature 98.3 F Pulse Rate 100 103 H 102 H Respiratory Rate 20 18 Blood Pressure 105/53 L Pulse Oximetry 97 Oxygen Delivery Oxygen Flow Rate 04/26/25 12:00 04/26/25 12:00 Temperature Pulse Rate 107 H 106 H Respiratory Rate Blood Pressure Pulse Oximetry 98 Oxygen Delivery Nasal Cannula Oxygen Flow Rate 3 Intake/Output Intake/Output: Intake & Output 04/23/25 04/24/25 04/25/25 04/26/25 23:59 23:59 23:59 23:59 Intake Total 3600 420 Balance 3600 420 Meds/Results Medications: Active Medications Generic Name Dose Route Start Last Admin Trade Name Freq PRN Reason Stop Dose Admin Acetaminophen 650 mg 04/25/25 21:52 Acetaminophen 325 Mg Tablet PO Q4H PRN Mild Pain (1-3) or Fever Albuterol/Ipratropium 3 ml 04/26/25 08:00 04/26/25 08:36 Ipratropium 0.5 Mg/Albuterol Sulfate 2.5 Mg Ampul.Neb 3 Ml INHALATION 3 ml Q6HRT RADHA Administration Allopurinol 300 mg 04/26/25 09:00 04/26/25 08:39 Allopurinol 300 Mg Tablet PO 300 mg DAILY RADHA Administration Apixaban 5 mg 04/26/25 09:00 04/26/25 08:38 Apixaban 5 Mg Tablet PO 5 mg BID RADHA Administration Calcium Carbonate 500 mg 04/26/25 09:00 04/26/25 08:40 Calcium Carbonate (Oscal) 500 Mg Tablet PO 500 mg QAM RADHA Administration Docusate Sodium 100 mg 04/26/25 09:00 04/26/25 08:42 Docusate Sodium 100 Mg Capsule PO Not Given BID RADHA Fidaxomicin 200 mg 04/26/25 09:00 04/26/25 08:40 Fidaxomicin 200 Mg Tablet PO 05/06/25 08:59 200 mg Q12HR RADHA Administration Cefepime HCl 2 gm in 50 mls @ 100 mls/hr 04/26/25 04:00 04/26/25 11:36 Maxipime 2 Gm/Ns 50 Ml IVPB Infused Q8H RADHA Infusion Vancomycin HCl 1,500 mg in 500 mls @ 250 mls/hr 04/26/25 15:00 Vancomycin 1,500 Mg/Ns 500 Ml IVPB Q18H RADHA Doxycycline Hyclate 100 mg in 100 mls @ 100 mls/hr 04/26/25 10:00 04/26/25 10:00 Vibramycin 100 Mg/Ns 100 Ml IVPB Infused Q12H RADHA Infusion Sodium Chloride 1,000 mls @ 50 mls/hr 04/25/25 21:55 04/25/25 23:15 Normal Saline Iv IV CONT 125 mls/hr .Q20H RADHA Administration Magnesium Oxide 400 mg 04/26/25 09:00 04/26/25 08:39 Magnesium Oxide 400 Mg Tablet PO 400 mg DAILY RADHA Administration Montelukast Sodium 10 mg 04/26/25 09:00 04/26/25 08:37 Montelukast Sodium 10 Mg Tablet PO 10 mg DAILY RADHA Administration Ondansetron HCl 4 mg 04/25/25 21:52 Ondansetron Inj 4 Mg/2 Ml Vial IV PUSH Q4H PRN Nausea Pantoprazole Sodium 40 mg 04/26/25 09:00 04/26/25 08:39 Pantoprazole 40 Mg Tablet PO 40 mg Q12HR RADHA Administration Potassium Chloride 20 meq 04/26/25 09:00 04/26/25 08:38 Potassium Chloride 20 Meq Er Tablet PO 20 meq DAILY RADHA Administration Saccharomyces Boulardii 250 mg 04/26/25 09:00 04/26/25 08:38 Saccharomyces Boulardii 250 Mg Capsule PO 250 mg BID RADHA Administration Fluticasone/Salmeterol 2 puff 04/26/25 20:00 Fluticasone/Salmeterol 115-21 Mcg (*Sp) Inhaler INHALATION Q12HRT [facility] Sertraline HCl 25 mg 04/26/25 09:00 04/26/25 08:37 Sertraline Hcl 25 Mg Tablet PO 25 mg DAILY RADHA Administration Vitamin B Complex 1 cap 04/26/25 09:00 04/26/25 08:39 Vitamin B Complex Capsule PO 1 cap BID RADHA Administration Vitamin D 125 mcg 04/26/25 09:00 04/26/25 08:38 Cholecalciferol (Vitamin D3) 125 Mcg (5,000 Units) Tablet PO 125 mcg DAILY RADHA Administration Radiology Results: ITS Impressions Chest X-Ray 04/25/25 19:28 IMPRESSION: No significant change from previous examination. Widening of the superior mediastinum with masses and postradiation changes in the right apical area. Bibasilar opacification which may indicate atelectasis versus pneumonia. Clinical correlation advised. Head CT 04/25/25 20:40 IMPRESSION: No acute intracranial findings. Chest/Abdomen/Pelvis CT 04/25/25 21:12 IMPRESSION: CHEST: 1. Pneumonia versus atelectasis in the right upper lobe. Underlying mass cannot be excluded. Follow-up to resolution is advised. 2. Pneumonia in the right and left lower lobe. 3. Prevascular enlarged lymph nodes. ABDOMEN/PELVIS: 1. No evidence of appendicitis, diverticulitis or intestinal obstruction. 2. Hepatomegaly 3. Sliding hiatus hernia. 4. Constipation. Labs Labs: Laboratory Results - last 24 hr 04/25/25 04/25/25 04/25/25 18:55 18:57 19:03 WBC 15.2 H RBC 3.83 L Hgb 11.8 L Hct 36.1 L MCV 94.3 MCH 30.8 MCHC 32.7 RDW 14.1 Plt Count 289 MPV 8.9 Immature Gran % (Auto) Not Reportable Neut % (Auto) Not Reportable Lymph % (Auto) Not Reportable [place] % (Auto) Not Reportable Eos % (Auto) Not Reportable Baso % (Auto) Not Reportable Lymph # (Auto) Not Reportable [place] # (Auto) Not Reportable Eos # (Auto) Not Reportable Baso # (Auto) Not Reportable Abs Immat Gran (auto) Not Reportable Absolute Neuts (auto) Not Reportable Absolute Nucleated RBC Not Reportable Total Counted 100 Neutrophils % (Manual) 79 H Band Neutrophils % 12 H Monocytes % (Manual) 7 Eosinophils % (Manual) 1 Basophils % (Manual) 1 Nucleated RBC % Not Reportable Abs Neuts (Manual) 13.83 H Abs Monocytes (Manual) 1.06 H Absolute Eos (Manual) 0.15 Abs Basophils (Manual) 0.15 H Platelet Estimate Adequate Clumped Platelets Present Schistocytes None seen PT 14.6 INR 1.1 APTT 34.7 VBG pH 7.503 H* VBG pCO2 32.5 L VBG pO2 56.4 H VBG HCO3 24.9 O2 Delivery Device Nasal cannula O2 Liters/Min 5.0 FiO2 40 Sodium 133 L Potassium 3.7 Chloride 96 L Carbon Dioxide 26 Anion Gap 11 BUN 16 Creatinine 0.65 L Estim Creat Clear Calc 71 Estimated GFR > 60 Glucose 122 H POC Capillary Glucose Lactic Acid 1.1 Calcium 8.9 Magnesium 0.8 L Total Bilirubin 0.3 AST 30 ALT 18 Alkaline Phosphatase 137 H Troponin I < 0.012 Total Protein 7.2 Albumin 3.6 Lipase 61 Procalcitonin 0.8 TSH (Reflex) 1.020 Urine Color Urine Appearance Urine pH Ur Specific [place] Urine Protein Urine Glucose (UA) Urine Ketones Ur Blood (Man) Urine Nitrate Urine Bilirubin Urine Urobilinogen Add Ur Microanalysis Leukocyte Esterase Rfl Urine RBC Urine WBC Ur Squamous Epith Cells Urine Bacteria Urine Casts Urine Mucus C. difficile (PCR) Influenza A (RT-PCR) Negative Influenza B (RT-PCR) Negative RSV (RT-PCR) Negative SARS-CoV-2 RNA (RT-PCR) Negative 04/25/25 04/26/25 04/26/25 20:39 01:15 04:28 WBC 13.8 H RBC 3.12 L Hgb 9.7 L Hct 29.8 L MCV 95.5 MCH 31.1 MCHC 32.6 RDW 14.2 Plt Count 220 MPV 9.3 Immature Gran % (Auto) 0.4 Neut % (Auto) 86.6 H Lymph % (Auto) 6.5 L [place] % (Auto) 6.2 Eos % (Auto) 0.1 Baso % (Auto) 0.2 Lymph # (Auto) 0.90 [place] # (Auto) 0.9 H Eos # (Auto) 0.0 Baso # (Auto) 0.0 Abs Immat Gran (auto) 0.06 H Absolute Neuts (auto) 12.0 H Absolute Nucleated RBC 0.000 Total Counted Neutrophils % (Manual) Band Neutrophils % Monocytes % (Manual) Eosinophils % (Manual) Basophils % (Manual) Nucleated RBC % 0.0 Abs Neuts (Manual) Abs Monocytes (Manual) Absolute Eos (Manual) Abs Basophils (Manual) Platelet Estimate Clumped Platelets Schistocytes PT INR APTT VBG pH VBG pCO2 VBG pO2 VBG HCO3 O2 Delivery Device O2 Liters/Min FiO2 Sodium 133 L Potassium 3.6 Chloride 101 Carbon Dioxide 27 Anion Gap 5 BUN 13 Creatinine 0.62 L Estim Creat Clear Calc 69 Estimated GFR > 60 Glucose 95 POC Capillary Glucose Lactic Acid Calcium 8.1 L Magnesium 2.0 Total Bilirubin AST ALT Alkaline Phosphatase Troponin I Total Protein Albumin Lipase Procalcitonin TSH (Reflex) Urine Color Yellow Urine Appearance Clear Urine pH 5.5 Ur Specific [place] 1.029 Urine Protein Negative Urine Glucose (UA) Negative Urine Ketones Trace H Ur Blood (Man) Negative Urine Nitrate Positive H Urine Bilirubin Negative Urine Urobilinogen 0.2 Add Ur Microanalysis Reviewed Leukocyte Esterase Rfl 2+ H Urine RBC 0-2 Urine WBC 21-50 H Ur Squamous Epith Cells None seen Urine Bacteria 2+ H Urine Casts 3-5 Urine Mucus Present C. difficile (PCR) Positive A* Influenza A (RT-PCR) Influenza B (RT-PCR) RSV (RT-PCR) SARS-CoV-2 RNA (RT-PCR) 04/26/25 07:50 WBC RBC Hgb Hct MCV MCH MCHC RDW Plt Count MPV Immature Gran % (Auto) Neut % (Auto) Lymph % (Auto) [place] % (Auto) Eos % (Auto) Baso % (Auto) Lymph # (Auto) [place] # (Auto) Eos # (Auto) Baso # (Auto) Abs Immat Gran (auto) Absolute Neuts (auto) Absolute Nucleated RBC Total Counted Neutrophils % (Manual) Band Neutrophils % Monocytes % (Manual) Eosinophils % (Manual) Basophils % (Manual) Nucleated RBC % Abs Neuts (Manual) Abs Monocytes (Manual) Absolute Eos (Manual) Abs Basophils (Manual) Platelet Estimate Clumped Platelets Schistocytes PT INR APTT VBG pH VBG pCO2 VBG pO2 VBG HCO3 O2 Delivery Device O2 Liters/Min FiO2 Sodium Potassium Chloride Carbon Dioxide Anion Gap BUN Creatinine Estim Creat Clear Calc Estimated GFR Glucose POC Capillary Glucose 91 Lactic Acid Calcium Magnesium Total Bilirubin AST ALT Alkaline Phosphatase Troponin I Total Protein Albumin Lipase Procalcitonin TSH (Reflex) Urine Color Urine Appearance Urine pH Ur Specific [place] Urine Protein Urine Glucose (UA) Urine Ketones Ur Blood (Man) Urine Nitrate Urine Bilirubin Urine Urobilinogen Add Ur Microanalysis Leukocyte Esterase Rfl Urine RBC Urine WBC Ur Squamous Epith Cells Urine Bacteria Urine Casts Urine Mucus C. difficile (PCR) Influenza A (RT-PCR) Influenza B (RT-PCR) RSV (RT-PCR) SARS-CoV-2 RNA (RT-PCR) Quality VTE Prophylaxis VTE prophylaxis: pharmacologic ordered (Continue home Eliquis)
[2025-04-26] MEDS: SODIUM CHLORIDE 0.9% IV 1,000 ML 50 ML IV CONT (15:00)
[2025-04-26] MEDS: VANCOMYCIN 1,500 MG/NS 500 ML 1,500 MG/500 ML BAG 250 MG IVPB (15:01)
[2025-04-26] MEDS: SODIUM CHLORIDE 0.9% IV 500 ML 999 ML IV CONT (17:26)
--- NOTE | 2025-04-26 17:26 | ECG_ITS ---
Test Date: 2025-04-26 17:59:42 Measurements Intervals [place] Rate: 115 P: 0 DE: 0 QRS: 6 QRSD: 77 T: 14 QT: 396 QTc: 549 Interpretive Statements SINUS TACHYCARDIA EARLY PRECORDIAL R/S TRANSITION LOW QRS VOLTAGE IN PRECORDIAL LEADS CONSIDER INFERIOR INFARCT, AGE INDETERMINATE BASELINE ARTIFACT- I, II, III, AVR, AVL, AVF, V1, V5-V6 ABNORMAL ECG Compared to ECG 04/25/2025 19:29:26 HEART RATE HAS DECREASED Electronically Signed On 04-27-2025 07:15:18 CDT by Simon Olivares D.O.
[2025-04-26 18:02] LABS: Lactic Acid Reflex 1.3 mmol/L (0.7-2.0)
[2025-04-26] MEDS: ACETAMINOPHEN 325 MG TABLET 650 MG PO (20:50)
[2025-04-26] MEDS: FLUTICASONE/SALMETEROL 115-21 MCG (*SP) INHALER 2 PUFF INHALATION (21:20)
[2025-04-27] VITALS (18 sets, daily range): BP systolic 117–134; BP diastolic 48–81; PULSE 96–123; RESP 16–24; TEMP 36.1–37.5; O2SAT 90–99; BMI 29.0
[2025-04-27] MEDS: IPRATROPIUM 0.5 MG/ALBUTEROL SULFATE 2.5 MG AMPUL.NEB 3 ML INHALATION ×4 (02:50→19:23)
[2025-04-27] MEDS: CEFEPIME 2 GM/NS 50 ML 2 GM/50 ML BAG IVPB ×3 (03:32→21:21)
--- NOTE | 2025-04-27 07:08 | PM.IMPN ---
Progress Note: A&P Assessment and Plan (1) Sepsis: Qualifiers: Acute respiratory failure type: with hypoxia Sepsis acute organ dysfunction status: with acute organ dysfunction Sepsis type: sepsis due to unspecified organism Severe sepsis acute organ dysfunction type: acute respiratory failure Severe sepsis shock status: without septic shock Qualified Code(s): A41.9 - Sepsis, unspecified organism; R65.20 - Severe sepsis without septic shock; J96.01 - Acute respiratory failure with hypoxia Code(s): A41.9 - Sepsis, unspecified organism Status: Acute (2) Pneumonia: Qualifiers: Laterality: bilateral Lung location: lower lobe of lung Pneumonia type: due to unspecified organism Qualified Code(s): J18.9 - Pneumonia, unspecified organism Code(s): J18.9 - Pneumonia, unspecified organism Status: Acute (3) Acute hypoxic respiratory failure: Code(s): J96.01 - Acute respiratory failure with hypoxia Status: Acute (4) COPD (chronic obstructive pulmonary disease): Qualifiers: COPD type: unspecified COPD Qualified Code(s): J44.9 - Chronic obstructive pulmonary disease, unspecified Code(s): J44.9 - Chronic obstructive pulmonary disease, unspecified Status: Acute (5) C. difficile colitis: Code(s): A04.72 - Enterocolitis due to Clostridium difficile, not specified as recurrent Status: Acute (6) Hypomagnesemia: Code(s): E83.42 - Hypomagnesemia Status: Acute Plan Sepsis improving From Pneumonia CT chest showed right lower lobe on Rocephin and Doxycycline f/u cultures, gentle rehydration C diff diarrhea C diff pCr positive Continue Dificid monitor Pneumonia continue above care Acute hypoxemic respiratory failure on 3 liters oxygen, no oxygen at baseline continue titrating oxygen COPD continue home bronchodilators Anemia hb 9.8 Iron panel and FOBT ordered monitor H and h Hx of lung ca s/p resection and radiation therapy DVT on Eliquis DVT prophylaxis on Eliquis Subjective Date/time seen: 04/27/25 07:08 Interval history: Interval history: Patient is admitted in the setting pneumonia and is C diff colitis. Patient has been started on empiric antibiotic therapy with cefepime, vancomycin and will add doxycycline for atypical coverage. Blood cultures have been obtained and are pending. Patient has been started on antibiotics with Dificid for C diff. 04/27/2025: Ordered MBS to rule out aspiration. Positive for nasal MRSA Review of Systems Review of Systems: Review of systems was attempted but limited the patient is not the best historian despite being alert oriented to person place and year. She could also tell me the name of her half-way. ROS unobtainable: Yes unobtainable due to mental status Exam Narrative: Weight 81.7 kg BMI 30 Const: Other: Acutely ill-appearing, elderly, obese HENMT: Other: Mucous membranes are tacky, no oral pharyngeal erythema, fair dentition Eyes: Other: Positive conjunctival pallor, no scleral icterus Neck: Other: No JVD, no lymphadenopathy Resp: Other: Tachypnea, diffuse wheezing anterior lung persaud, crackles at the bases and laterally Cardio: Other: Mild Sinus tachycardia, no JVD, 2+ bilateral radial pedal pulses GI: Other: Soft, nontender, hypoactive bowel sounds, nondistended : Other: Incontinent of urine, depends in place Skin: Other: Generalized pallor, diaphoretic, warm to touch Neuro: Other: Alert oriented to person, place, year but confused as to the month, speech is clear but responsive somewhat slowed, follows all commands, no localizing neurologic deficits noted during the course of conversation Extrem: Other: No clubbing, cyanosis or edema, generalized weakness, 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 Psych: Other: Flat affect, cooperative Objective Data Vital Signs Vital Signs: Vital Signs - 24 hr 04/26/25 08:00 04/26/25 08:00 04/26/25 08:00 Temperature 97.9 F Pulse Rate 98 100 105 H Respiratory Rate 18 16 Blood Pressure 110/54 L Pulse Oximetry 97 98 Oxygen Delivery Nasal Cannula Oxygen Flow Rate 3 04/26/25 08:38 04/26/25 08:38 04/26/25 08:57 Temperature Pulse Rate 97 100 Respiratory Rate 20 20 Blood Pressure Pulse Oximetry 96 Oxygen Delivery Nasal Cannula Oxygen Flow Rate 4 04/26/25 10:00 04/26/25 11:57 04/26/25 12:00 Temperature 98.3 F Pulse Rate 103 H 102 H 107 H Respiratory Rate 18 Blood Pressure 105/53 L Pulse Oximetry 97 98 Oxygen Delivery Nasal Cannula Oxygen Flow Rate 3 04/26/25 12:00 04/26/25 13:39 04/26/25 13:50 Temperature Pulse Rate 106 H 101 H 106 H Respiratory Rate 20 20 Blood Pressure Pulse Oximetry Oxygen Delivery Oxygen Flow Rate 04/26/25 14:00 04/26/25 16:00 04/26/25 16:00 Temperature Pulse Rate 110 H 112 H 117 H Respiratory Rate Blood Pressure Pulse Oximetry 98 Oxygen Delivery Nasal Cannula Oxygen Flow Rate 3 04/26/25 16:05 04/26/25 17:24 04/26/25 18:00 Temperature 98.6 F Pulse Rate 111 H 120 H 115 H Respiratory Rate 20 Blood Pressure 129/69 Pulse Oximetry 100 Oxygen Delivery Oxygen Flow Rate 04/26/25 20:00 04/26/25 20:00 04/26/25 20:00 Temperature 98.6 F Pulse Rate 114 H 111 H Respiratory Rate 24 H Blood Pressure 125/62 Pulse Oximetry 96 96 Oxygen Delivery Nasal Cannula Oxygen Flow Rate 4 04/26/25 21:45 04/26/25 21:47 04/26/25 22:00 Temperature Pulse Rate 106 H 106 H 112 H Respiratory Rate 18 18 Blood Pressure Pulse Oximetry 96 Oxygen Delivery Nasal Cannula Oxygen Flow Rate 4 04/26/25 23:21 04/27/25 00:00 04/27/25 00:00 Temperature 98.6 F Pulse Rate 105 H 104 H Respiratory Rate 22 H Blood Pressure 120/61 Pulse Oximetry 96 96 Oxygen Delivery Nasal Cannula Oxygen Flow Rate 3 04/27/25 02:00 04/27/25 02:50 04/27/25 03:42 Temperature Pulse Rate 103 H 108 H 108 H Respiratory Rate 16 16 Blood Pressure Pulse Oximetry 96 Oxygen Delivery Nasal Cannula Oxygen Flow Rate 3 04/27/25 03:51 04/27/25 04:00 04/27/25 06:00 Temperature 98.5 F Pulse Rate 114 H 112 H 101 H Respiratory Rate 20 Blood Pressure 124/48 L Pulse Oximetry 97 Oxygen Delivery Oxygen Flow Rate Intake/Output Intake/Output: Intake & Output 04/24/25 04/25/25 04/26/25 04/27/25 23:59 23:59 23:59 23:59 Intake Total 3600 3185.0 300 Output Total 675 900 Balance 3600 2510.0 -600 Meds/Results Medications: Active Medications Generic Name Dose Route Start Last Admin Trade Name Freq PRN Reason Stop Dose Admin Acetaminophen 650 mg 04/25/25 21:52 04/26/25 20:50 Acetaminophen 325 Mg Tablet PO 650 mg Q4H PRN Administration Mild Pain (1-3) or Fever Albuterol/Ipratropium 3 ml 04/26/25 08:00 04/27/25 02:50 Ipratropium 0.5 Mg/Albuterol Sulfate 2.5 Mg Ampul.Neb 3 Ml INHALATION 3 ml Q6HRT RADHA Administration Allopurinol 300 mg 04/26/25 09:00 04/26/25 08:39 Allopurinol 300 Mg Tablet PO 300 mg DAILY RADHA Administration Apixaban 5 mg 04/26/25 09:00 04/26/25 16:52 Apixaban 5 Mg Tablet PO 5 mg BID RADHA Administration Calcium Carbonate 500 mg 04/26/25 09:00 04/26/25 08:40 Calcium Carbonate (Oscal) 500 Mg Tablet PO 500 mg QAM RADHA Administration Docusate Sodium 100 mg 04/26/25 09:00 04/26/25 16:53 Docusate Sodium 100 Mg Capsule PO Not Given BID RADHA Fidaxomicin 200 mg 04/26/25 09:00 04/26/25 20:43 Fidaxomicin 200 Mg Tablet PO 05/06/25 08:59 200 mg Q12HR RADHA Administration Cefepime HCl 2 gm in 50 mls @ 100 mls/hr 04/26/25 04:00 04/27/25 03:32 Maxipime 2 Gm/Ns 50 Ml IVPB 100 mls/hr Q8H RADHA Administration Vancomycin HCl 1,500 mg in 500 mls @ 250 mls/hr 04/26/25 15:00 04/26/25 17:01 Vancomycin 1,500 Mg/Ns 500 Ml IVPB Infused Q18H RADHA Infusion Doxycycline Hyclate 100 mg in 100 mls @ 100 mls/hr 04/26/25 10:00 04/26/25 21:16 Vibramycin 100 Mg/Ns 100 Ml IVPB 100 mls/hr Q12H RADHA Administration Magnesium Oxide 400 mg 04/26/25 09:00 04/26/25 08:39 Magnesium Oxide 400 Mg Tablet PO 400 mg DAILY RADHA Administration Montelukast Sodium 10 mg 04/26/25 09:00 04/26/25 08:37 Montelukast Sodium 10 Mg Tablet PO 10 mg DAILY RADHA Administration Ondansetron HCl 4 mg 04/25/25 21:52 Ondansetron Inj 4 Mg/2 Ml Vial IV PUSH Q4H PRN Nausea Pantoprazole Sodium 40 mg 04/26/25 09:00 04/26/25 20:43 Pantoprazole 40 Mg Tablet PO 40 mg Q12HR RADHA Administration Potassium Chloride 20 meq 04/26/25 09:00 04/26/25 08:38 Potassium Chloride 20 Meq Er Tablet PO 20 meq DAILY RADHA Administration Saccharomyces Boulardii 250 mg 04/26/25 09:00 04/26/25 16:52 Saccharomyces Boulardii 250 Mg Capsule PO 250 mg BID RADHA Administration Fluticasone/Salmeterol 2 puff 04/26/25 20:00 04/26/25 21:20 Fluticasone/Salmeterol 115-21 Mcg (*Sp) Inhaler INHALATION 2 puff Q12HRT RADHA Administration Sertraline HCl 25 mg 04/26/25 09:00 04/26/25 08:37 Sertraline Hcl 25 Mg Tablet PO 25 mg DAILY RADHA Administration Vitamin B Complex 1 cap 04/26/25 09:00 04/26/25 16:53 Vitamin B Complex Capsule PO 1 cap BID RADHA Administration Vitamin D 125 mcg 04/26/25 09:00 04/26/25 08:38 Cholecalciferol (Vitamin D3) 125 Mcg (5,000 Units) Tablet PO 125 mcg DAILY RADHA Administration Radiology Results: ITS Impressions Chest X-Ray 04/25/25 19:28 IMPRESSION: No significant change from previous examination. Widening of the superior mediastinum with masses and postradiation changes in the right apical area. Bibasilar opacification which may indicate atelectasis versus pneumonia. Clinical correlation advised. Head CT 04/25/25 20:40 IMPRESSION: No acute intracranial findings. Chest/Abdomen/Pelvis CT 04/25/25 21:12 IMPRESSION: CHEST: 1. Pneumonia versus atelectasis in the right upper lobe. Underlying mass cannot be excluded. Follow-up to resolution is advised. 2. Pneumonia in the right and left lower lobe. 3. Prevascular enlarged lymph nodes. ABDOMEN/PELVIS: 1. No evidence of appendicitis, diverticulitis or intestinal obstruction. 2. Hepatomegaly 3. Sliding hiatus hernia. 4. Constipation. Labs Labs: Laboratory Results - last 24 hr 04/26/25 04/26/25 07:50 17:46 POC Capillary Glucose 91 Lactic Acid 1.3 Quality VTE Prophylaxis VTE prophylaxis: pharmacologic ordered (Continue home Eliquis) Hospitalist MIPS Advance Care Plan I have confirmed that the patient's Advanced Care Plan is present, code status is documented, or surrogate decision maker is listed in patient medical record.: Yes Medication Reconciliation I have utilized all available resources to obtain, update and review the patients current medications (includes all prescriptions, OTC, herbals, cannabis, and nutritional supplements).: Yes
[2025-04-27] MEDS: FLUTICASONE/SALMETEROL 115-21 MCG (*SP) INHALER 2 PUFF INHALATION ×2 (07:58→19:23)
[2025-04-27 08:00] LABS: Basophils Percent Auto 0.1 % (0.2-1.2); Hematocrit 30.7 % (37.0-47.0); Immature Granulocyte Absolute 0.06 K/mm3 (0.00-0.031); Immature Granulocyte Percent A 0.7 % (0-0.5); Lymphocytes Absolute Auto 0.53 K/mm3 (0.9-3.2); Lymphocytes Percent Auto 5.8 % (18.3-44.2); Mean Corpuscular HGB Conc 32.6 g/dl (32-36); Mean Corpuscular Hemoglobin 31.2 pg (26-34); Mean Corpuscular Volume 95.6 fl (80-100); Mean Platelet Volume 9.7 fl (7.4-10.4); Monocytes Absolute Auto 0.7 K/mm3 (0.1-0.6); Monocytes Percent Auto 7.6 % (2.6-8.5); Neutrophils Absolute Auto 7.9 K/mm3 (1.3-6.7); Neutrophils Percent Auto 85.8 % (45.5-73.1); Platelet Count Result 202 k/mm3 (150-375); Red Blood Count 3.21 M/mm3 (4.2-5.4); Red Cell Distribution Width 14.3 % (11.5-14.5); White Blood Count 9.2 K/mm3 (4.5-10.0)
[2025-04-27 08:10] LABS: Lactic Acid Reflex 0.9 mmol/L (0.7-2.0)
[2025-04-27 08:14] LABS: Magnesium 1.3 mg/dL (1.6-2.3)
[2025-04-27 08:16] LABS: Vancomycin Trough 13.8 ug/mL (10.0-20.0)
[2025-04-27 08:24] LABS: Iron 20 ug/dL (37-170)
[2025-04-27] MEDS: MONTELUKAST SODIUM 10 MG TABLET PO (08:35)
[2025-04-27] MEDS: CALCIUM CARBONATE (OSCAL) 500 MG TABLET PO (08:35)
[2025-04-27] MEDS: SERTRALINE HCL 25 MG TABLET PO (08:35)
[2025-04-27] MEDS: PANTOPRAZOLE 40 MG TABLET PO ×2 (08:35→21:21)
[2025-04-27] MEDS: POTASSIUM CHLORIDE 20 MEQ ER TABLET PO (08:35)
[2025-04-27] MEDS: APIXABAN 5 MG TABLET PO ×2 (08:35→16:46)
[2025-04-27] MEDS: allopurinoL 300 MG TABLET PO (08:35)
[2025-04-27] MEDS: CHOLECALCIFEROL (VITAMIN D3) 125 MCG (5,000 UNITS) TABLET PO (08:35)
[2025-04-27] MEDS: FIDAXOMICIN 200 MG TABLET PO ×2 (08:35→21:21)
[2025-04-27] MEDS: MAGNESIUM OXIDE 400 MG TABLET PO (08:35)
[2025-04-27] MEDS: SACCHAROMYCES BOULARDII 250 MG CAPSULE PO ×2 (08:35→16:47)
[2025-04-27] MEDS: VITAMIN B COMPLEX CAPSULE 1 CAP PO ×2 (08:35→16:47)
[2025-04-27 08:36] LABS: Percent Iron Saturation 11 % (20-50)
[2025-04-27 08:49] LABS: Alanine Aminotransferase 14 U/L (6-35); Albumin Level 2.8 g/dL (3.5-5.1); Alkaline Phosphatase 124 U/L (38-126); Anion Gap 5 mmol/L (4-12); Aspartate Amino Transferase 28 U/L (14-36); Bilirubin,Total 0.1 mg/dL (0.2-1.3); Blood Urea Nitrogen 10 mg/dL (7-17); Calcium 8.2 mg/dL (8.4-10.2); Carbon Dioxide 26 mmol/L (22-30); Chloride 101 mmol/L (98-107); Estimated CRCL calculation 67 ml/min; Estimated Glomerular Filt Rate > 60; Glucose 92 mg/dL (65-110); Potassium 3.4 mmol/L (3.4-5.0); Sodium 132 mmol/L (137-145)
[2025-04-27 09:50] LABS: MRSA (PCR) DETECTED (NOT DETECTE)
--- NOTE | 2025-04-27 10:37 | PC.NURSE ---
This patient, Zoe A Dia, was transferred to [[id number] ] on 04/27/25 at 1035. Personal belongings sent with patient. Report given to [BRIDGET Cisse @ 1030]. Appropriate documentation sent with patient.
[2025-04-27] MEDS: DOXYCYCLINE 100 MG/NS 100 ML 100 MG/100 ML BAG IVPB (10:50)
--- NOTE | 2025-04-27 10:55 | PC.NURSE ---
This patient, Zoe Hogue Dia, was received from [id number] on 04/27/25 at 1055. Patient/family oriented to unit policies and routines. Report per BRIDGET Lizarraga
[2025-04-27] MEDS: VANCOMYCIN 1,750 MG/NS 500 ML 1,750 MG/500 ML BAG 250 MG IVPB (11:10)
[2025-04-27 13:27] LABS: Glucose Point of Care 104 mg/dl (65-105)
--- NOTE | 2025-04-27 13:27 | REHSTMBS ---
Assessment and note entered by Jeanne Ryan WEED INSPECTOR Modified Barium Swallow Evaluation Feeding Type Recommended Oral Food Consistency Pureed, Level 4 Liquid Consistency Extremely Thick (4) Treatment Recommendations Effortful Swallow,Laryngeal Elevation Exercise, Tongue Base Exercise,Tongue ROM Exercise ST Clinical Summary The patient is a 74 year old female referred for a MBS study. The patient is admitted with a diagnosis of hypoxia and respiratory failure with concerns for aspiration pneumonia. The patient last had an MBS study January 2025. Recommendations at that time included: Puree Level 4 diet, Moderately thick level 3 liquids, small bites and drinks, and an extra swallow. Today the patient was positioned in a lateral view and was presented the following consistencies 5cc /tsp thin liquid barium, 5cc/tsp mildly thick barium, 5cc/tsp moderately thick liquid barium, pudding mixed with barium paste, and cracker coated with barium paste. Oral Stage: The oral stage was timely without noted residual for 5 cc/ tsp amounts thin liquid barium, mildly and moderately thick liquid barium. When presented tsp amounts pudding mixed with barium paste the bolus was viewed to fill the vallecula prior to swallow initiation. Premature spillage due to reduced lingual control and oral sensory awareness. When presented tsp amounts cracker coated with barium paste the bolus was viewed to spill prematurely into the vallecula and pyriform sinus prior to swallow initiation due to decreased sensory awareness, delayed oral preparation, and reduced lingual control. Pharyngeal stage: When presented tsp amounts 5cc thin liquid barium, 5cc/tsp mildly thick barium, and 5cc/tsp moderately thick barium trace penetration was viewed during the swallow due to decreased laryngeal elevation and decreased laryngeal closure. The material entered the airway and was not ejected. The patient could clear penetrated material with cues to complete a dry swallow. Following the swallow moderate residual remained in the vallecula due to reduced tongue base retraction/lingual pressure. Again the patient was able to clear a significant amount of the remaining residual with a repeat swallow. However, she required multiple cues to initiate the second swallow. When presented tsp amounts pudding mixed with barium paste moderate residual remained in the vallecula due to reduced tongue base retraction/lingual pressure which the patient was able to clear with a repeat dry swallow. No viewed penetration/aspiration with this consistency. When presented cracker coated with barium paste laryngeal penetration was viewed during the swallow secondary to reduced laryngeal elevation and reduced laryngeal closure as well as premature spillage of the bolus. Severe residual remained in the vallecula following the swallow. The patient was cued to complete a repeat swallow and was able to clear a significant portion of the residual in the vallecula after several verbal cues. Recommend 1. Puree/Level 4 diet 2. Extremely thick Level 4 liquids 3. Upright all meals 4. Small bites and drinks 5. One on one supervision 6. Repeat Swallow 7. Speech intervention: Resistance Exercises Effortful swallow, tongue base exercises, tongue ROM/control.
[2025-04-27 16:40] LABS: Glucose Point of Care 92 mg/dl (65-105)
--- NOTE | 2025-04-27 19:00 | PC.NURSE ---
On 04/27/25, the ROLE PLAYER, Tanna Daniels, provided care and completed [employer] documentation on this patient. I have reviewed the ROLE PLAYER's documentation and agree with the findings.
[2025-04-27 20:48] LABS: Glucose Point of Care 127 mg/dl (65-105)
[2025-04-27] MEDS: DOXYCYCLINE HYCLATE 100 MG TABLET PO (21:20)
[2025-04-28] VITALS (9 sets, daily range): BP systolic 127–138; BP diastolic 73–81; PULSE 100–113; RESP 16–20; TEMP 36.2–36.7; O2SAT 91–93
[2025-04-28] MEDS: IPRATROPIUM 0.5 MG/ALBUTEROL SULFATE 2.5 MG AMPUL.NEB 3 ML INHALATION ×3 (02:45→20:14)
[2025-04-28] MEDS: CEFEPIME 2 GM/NS 50 ML 2 GM/50 ML BAG IVPB (03:30)
[2025-04-28] MEDS: VANCOMYCIN 1,750 MG/NS 500 ML 1,750 MG/500 ML BAG 250 MG IVPB (05:00)
[2025-04-28 07:11] LABS: Hematocrit 30.7 % (37.0-47.0); Hemoglobin 9.9 g/dL (12.0-15.0); Mean Corpuscular HGB Conc 32.2 g/dl (32-36); Mean Corpuscular Hemoglobin 30.7 pg (26-34); Mean Corpuscular Volume 95.3 fl (80-100); Platelet Count Result 234 k/mm3 (150-375); Red Blood Count 3.22 M/mm3 (4.2-5.4); Red Cell Distribution Width 14.2 % (11.5-14.5); White Blood Count 5.6 K/mm3 (4.5-10.0)
[2025-04-28 07:26] LABS: Alanine Aminotransferase 14 U/L (6-35); Albumin Level 2.7 g/dL (3.5-5.1); Alkaline Phosphatase 128 U/L (38-126); Anion Gap 5 mmol/L (4-12); Aspartate Amino Transferase 25 U/L (14-36); Bilirubin,Total 0.2 mg/dL (0.2-1.3); Blood Urea Nitrogen 9 mg/dL (7-17); Calcium 8.3 mg/dL (8.4-10.2); Carbon Dioxide 28 mmol/L (22-30); Chloride 101 mmol/L (98-107); Estimated CRCL calculation 77 ml/min; Estimated Glomerular Filt Rate > 60; Glucose 83 mg/dL (65-110); Potassium 3.5 mmol/L (3.4-5.0); Sodium 134 mmol/L (137-145)
[2025-04-28 07:36] LABS: Glucose Point of Care 82 mg/dl (65-105)
[2025-04-28] MEDS: CHOLECALCIFEROL (VITAMIN D3) 125 MCG (5,000 UNITS) TABLET PO (08:31)
[2025-04-28] MEDS: allopurinoL 300 MG TABLET PO (08:31)
[2025-04-28] MEDS: APIXABAN 5 MG TABLET PO ×2 (08:31→17:20)
[2025-04-28] MEDS: DOXYCYCLINE HYCLATE 100 MG TABLET PO ×2 (08:31→21:36)
[2025-04-28] MEDS: CALCIUM CARBONATE (OSCAL) 500 MG TABLET PO (08:31)
[2025-04-28] MEDS: MONTELUKAST SODIUM 10 MG TABLET PO (08:32)
[2025-04-28] MEDS: SERTRALINE HCL 25 MG TABLET PO (08:32)
[2025-04-28] MEDS: SACCHAROMYCES BOULARDII 250 MG CAPSULE PO ×2 (08:32→17:20)
[2025-04-28] MEDS: PANTOPRAZOLE 40 MG TABLET PO ×2 (08:32→21:37)
[2025-04-28] MEDS: FIDAXOMICIN 200 MG TABLET PO ×2 (08:32→21:37)
[2025-04-28] MEDS: ACETAMINOPHEN 325 MG TABLET 650 MG PO (08:32)
[2025-04-28] MEDS: MAGNESIUM OXIDE 400 MG TABLET PO (08:32)
[2025-04-28] MEDS: VITAMIN B COMPLEX CAPSULE 1 CAP PO ×2 (08:32→17:20)
[2025-04-28] MEDS: POTASSIUM CHLORIDE 20 MEQ ER TABLET PO (08:32)
[2025-04-28] MEDS: FLUTICASONE/SALMETEROL 115-21 MCG (*SP) INHALER 2 PUFF INHALATION ×2 (09:07→20:16)
[2025-04-28] MEDS: IRON SUCROSE COMPLEX 400 MG, IRON SUCROSE COMPLEX 100 MG in SODIUM CHLORIDE 0.9% IV 250 ML 78.57 MG IVPB (10:49)
[2025-04-28] MEDS: CEFDINIR 300 MG CAPSULE PO ×2 (11:07→21:37)
[2025-04-28 11:41] LABS: Glucose Point of Care 123 mg/dl (65-105)
--- NOTE | 2025-04-28 15:40 | P.PNIM_ITS ---
Progress Note: A&P Assessment and Plan (1) Sepsis: Qualifiers: Acute respiratory failure type: with hypoxia Sepsis acute organ dysfunction status: with acute organ dysfunction Sepsis type: sepsis due to unspecified organism Severe sepsis acute organ dysfunction type: acute respiratory failure Severe sepsis shock status: without septic shock Qualified Code(s): A41.9 - Sepsis, unspecified organism; R65.20 - Severe sepsis without septic shock; J96.01 - Acute respiratory failure with hypoxia Code(s): A41.9 - Sepsis, unspecified organism Status: Acute (2) Pneumonia: Qualifiers: Pneumonia type: due to unspecified organism Laterality: bilateral Lung location: lower lobe of lung Qualified Code(s): J18.9 - Pneumonia, unspecified organism Code(s): J18.9 - Pneumonia, unspecified organism Status: Acute (3) Acute hypoxic respiratory failure: Code(s): J96.01 - Acute respiratory failure with hypoxia Status: Acute (4) COPD (chronic obstructive pulmonary disease): Qualifiers: COPD type: unspecified COPD Qualified Code(s): J44.9 - Chronic obstructive pulmonary disease, unspecified Code(s): J44.9 - Chronic obstructive pulmonary disease, unspecified Status: Acute (5) C. difficile colitis: Code(s): A04.72 - Enterocolitis due to Clostridium difficile, not specified as recurrent Status: Acute (6) Hypomagnesemia: Code(s): E83.42 - Hypomagnesemia Status: Acute Plan Sepsis improving From Pneumonia CT chest showed right lower lobe S/p Rocephin and Vanc Now on Cefdinir and Doxycycline, end date 05/02 f/u cultures, gentle rehydration C diff diarrhea C diff pCr positive Continue Dificid monitor Pneumonia continue above care Acute hypoxemic respiratory failure on 3 liters oxygen, no oxygen at baseline continue titrating oxygen COPD continue home bronchodilators Anemia hb 9.8 Isat 11 Venofer 500/1000mg monitor H and h Hx of lung ca s/p resection and radiation therapy DVT on Eliquis DVT prophylaxis on Eliquis Subjective Date/time seen: 04/28/25 15:40 Interval history: Comfortable at bedside Review of Systems Review of Systems: Review of systems was attempted but limited the patient is not the best historian despite being alert oriented to person place and year. She could also tell me the name of her retirement. ROS unobtainable: Yes unobtainable due to mental status Exam Narrative: Weight 81.7 kg BMI 30 Const: Other: Acutely ill-appearing, elderly, obese HENMT: Other: Mucous membranes are tacky, no oral pharyngeal erythema, fair dentition Eyes: Other: Positive conjunctival pallor, no scleral icterus Neck: Other: No JVD, no lymphadenopathy Resp: Other: Tachypnea, diffuse wheezing anterior lung persaud, crackles at the bases and laterally Cardio: Other: Mild Sinus tachycardia, no JVD, 2+ bilateral radial pedal pulses GI: Other: Soft, nontender, hypoactive bowel sounds, nondistended : Other: Incontinent of urine, depends in place Skin: Other: Generalized pallor, diaphoretic, warm to touch Neuro: Other: Alert oriented to person, place, year but confused as to the month, speech is clear but responsive somewhat slowed, follows all commands, no localizing neurologic deficits noted during the course of conversation Extrem: Other: No clubbing, cyanosis or edema, generalized weakness, 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 Psych: Other: Flat affect, cooperative Objective Data Vital Signs Vital Signs: Vital Signs - 24 hr 04/27/25 15:54 04/27/25 19:24 04/27/25 19:27 Temperature 99.5 F Pulse Rate 113 H 115 H 115 H Respiratory Rate 22 H 20 20 Blood Pressure 134/74 Pulse Oximetry 93 90 Oxygen Delivery 04/27/25 20:00 04/27/25 20:52 04/28/25 02:45 Temperature 97.0 F L Pulse Rate 121 H 102 H Respiratory Rate 16 20 Blood Pressure 117/81 Pulse Oximetry 96 Oxygen Delivery Room Air 04/28/25 02:55 04/28/25 05:38 04/28/25 08:00 Temperature 97.2 F L Pulse Rate 100 112 H Respiratory Rate 20 18 Blood Pressure 127/73 Pulse Oximetry 92 Oxygen Delivery Room Air 04/28/25 09:07 Temperature Pulse Rate Respiratory Rate 20 Blood Pressure Pulse Oximetry Oxygen Delivery Intake/Output Intake/Output: Intake & Output 04/25/25 04/26/25 04/27/25 04/28/25 23:59 23:59 23:59 23:59 Intake Total 3600 3285.0 1310 1030 Output Total 675 1950 1350 Balance 3600 2610.0 -640 -320 Meds/Results Medications: Active Medications Generic Name Dose Route Start Last Admin Trade Name Freq PRN Reason Stop Dose Admin Acetaminophen 650 mg 04/25/25 21:52 04/28/25 08:32 Acetaminophen 325 Mg Tablet PO 650 mg Q4H PRN Administration Mild Pain (1-3) or Fever Albuterol/Ipratropium 3 ml 04/26/25 08:00 04/28/25 09:07 Ipratropium 0.5 Mg/Albuterol Sulfate 2.5 Mg Ampul.Neb 3 Ml INHALATION 3 ml Q6HRT RADHA Administration Allopurinol 300 mg 04/26/25 09:00 04/28/25 08:31 Allopurinol 300 Mg Tablet PO 300 mg DAILY RADHA Administration Apixaban 5 mg 04/26/25 09:00 04/28/25 08:31 Apixaban 5 Mg Tablet PO 5 mg BID RADHA Administration Calcium Carbonate 500 mg 04/29/25 12:00 Calcium Carbonate (Oscal) 500 Mg Tablet PO Q24H RADHA Cefdinir 300 mg 04/28/25 11:00 04/28/25 11:07 Cefdinir 300 Mg Capsule PO 05/02/25 21:01 300 mg Q12HR RADHA Administration Dextrose 12.5 gm 04/27/25 11:48 Dextrose 50% 25 Gm/50 Ml Syringe IV PUSH PRN PRN Hypoglycemia Protocol Docusate Sodium 100 mg 04/26/25 09:00 04/28/25 08:36 Docusate Sodium 100 Mg Capsule PO Not Given BID RADHA Doxycycline Hyclate 100 mg 04/27/25 21:00 04/28/25 08:31 Doxycycline Hyclate 100 Mg Tablet PO 05/02/25 21:01 100 mg Q12HR RADHA Administration Fidaxomicin 200 mg 04/26/25 09:00 04/28/25 08:32 Fidaxomicin 200 Mg Tablet PO 05/06/25 08:59 200 mg Q12HR RADHA Administration Glucagon 1 mg 04/27/25 11:48 Glucagon For Inj 1 Mg Vial IM PRN PRN Hypoglycemia Protocol Glucose 15 gm 04/27/25 11:48 Glucose Oral Gel 15 Gm Of Glucse In 37.5 Gm Tube PO PRN PRN Hypoglycemia Protocol Dextrose 1,000 mls @ 100 mls/hr 04/27/25 11:48 Dextrose 5% 1,000 Ml IVPB PRN PRN Hypoglycemia Protocol Insulin Aspart 2 - 5 units 04/27/25 12:00 04/28/25 11:55 Insulin Aspart (*Bkc) 100 Units/Ml SUB-Q Not Given TIDWM RADHA Protocol Insulin Aspart 1 - 2 units 04/27/25 21:00 04/28/25 00:20 Insulin Aspart (*Bkc) 100 Units/Ml SUB-Q Not Given HS RADHA Protocol Magnesium Oxide 400 mg 04/29/25 12:00 Magnesium Oxide 400 Mg Tablet PO DAILY@1200 RADHA Montelukast Sodium 10 mg 04/26/25 09:00 04/28/25 08:32 Montelukast Sodium 10 Mg Tablet PO 10 mg DAILY RADHA Administration Ondansetron HCl 4 mg 04/25/25 21:52 Ondansetron Inj 4 Mg/2 Ml Vial IV PUSH Q4H PRN Nausea Pantoprazole Sodium 40 mg 04/26/25 09:00 04/28/25 08:32 Pantoprazole 40 Mg Tablet PO 40 mg Q12HR RADHA Administration Potassium Chloride 20 meq 04/26/25 09:00 04/28/25 08:32 Potassium Chloride 20 Meq Er Tablet PO 20 meq DAILY RADHA Administration Saccharomyces Boulardii 250 mg 04/26/25 09:00 04/28/25 08:32 Saccharomyces Boulardii 250 Mg Capsule PO 250 mg BID RADHA Administration Fluticasone/Salmeterol 2 puff 04/26/25 20:00 04/28/25 09:07 Fluticasone/Salmeterol 115-21 Mcg (*Sp) Inhaler INHALATION 2 puff Q12HRT RADHA Administration Sertraline HCl 25 mg 04/26/25 09:00 04/28/25 08:32 Sertraline Hcl 25 Mg Tablet PO 25 mg DAILY RADHA Administration Vitamin B Complex 1 cap 04/26/25 09:00 04/28/25 08:32 Vitamin B Complex Capsule PO 1 cap BID RADHA Administration Vitamin D 125 mcg 04/26/25 09:00 04/28/25 08:31 Cholecalciferol (Vitamin D3) 125 Mcg (5,000 Units) Tablet PO 125 mcg DAILY RADHA Administration Radiology Results: ITS Impressions Chest X-Ray 04/25/25 19:28 IMPRESSION: No significant change from previous examination. Widening of the superior mediastinum with masses and postradiation changes in the right apical area. Bibasilar opacification which may indicate atelectasis versus pneumonia. Clinical correlation advised. Head CT 04/25/25 20:40 IMPRESSION: No acute intracranial findings. Chest/Abdomen/Pelvis CT 04/25/25 21:12 IMPRESSION: CHEST: 1. Pneumonia versus atelectasis in the right upper lobe. Underlying mass cannot be excluded. Follow-up to resolution is advised. 2. Pneumonia in the right and left lower lobe. 3. Prevascular enlarged lymph nodes. ABDOMEN/PELVIS: 1. No evidence of appendicitis, diverticulitis or intestinal obstruction. 2. Hepatomegaly 3. Sliding hiatus hernia. 4. Constipation. Modified Barium Swallow 04/27/25 09:53 IMPRESSION: Pharyngeal dysphagia with laryngeal penetration without aspiration with multiple consistencies. Please correlate with speech pathologist findings and specific feeding recommendations. Labs Labs: Laboratory Results - last 24 hr 04/27/25 04/27/25 04/28/25 16:19 20:39 06:36 WBC 5.6 RBC 3.22 L Hgb 9.9 L Hct 30.7 L MCV 95.3 MCH 30.7 MCHC 32.2 RDW 14.2 Plt Count 234 MPV 9.0 Sodium 134 L Potassium 3.5 Chloride 101 Carbon Dioxide 28 Anion Gap 5 BUN 9 Creatinine 0.56 L Estim Creat Clear Calc 77 Estimated GFR > 60 Glucose 83 POC Capillary Glucose 92 127 H Calcium 8.3 L Total Bilirubin 0.2 AST 25 ALT 14 Alkaline Phosphatase 128 H Total Protein 6.0 L Albumin 2.7 L 04/28/25 04/28/25 07:32 11:38 WBC RBC Hgb Hct MCV MCH MCHC RDW Plt Count MPV Sodium Potassium Chloride Carbon Dioxide Anion Gap BUN Creatinine Estim Creat Clear Calc Estimated GFR Glucose POC Capillary Glucose 82 123 H Calcium Total Bilirubin AST ALT Alkaline Phosphatase Total Protein Albumin Quality VTE Prophylaxis VTE prophylaxis: pharmacologic ordered (Continue home Eliquis)
[2025-04-28 16:48] LABS: Glucose Point of Care 101 mg/dl (65-105)
[2025-04-28 20:16] LABS: Glucose Point of Care 109 mg/dl (65-105)
[2025-04-29] VITALS (7 sets, daily range): BP systolic 119–128; BP diastolic 67–68; PULSE 99–114; RESP 16–20; TEMP 36.4–37.1; O2SAT 91–93
[2025-04-29] MEDS: IPRATROPIUM 0.5 MG/ALBUTEROL SULFATE 2.5 MG AMPUL.NEB 3 ML INHALATION ×3 (02:12→14:00)
[2025-04-29 06:50] LABS: Basophils Percent Auto 0.6 % (0.2-1.2); Eosinophils Absolute Auto 0.1 K/mm3 (0-0.3); Eosinophils Percent Auto 1.4 % (0-4.4); Hemoglobin 11.3 g/dL (12.0-15.0); Immature Granulocyte Absolute 0.06 K/mm3 (0.00-0.031); Immature Granulocyte Percent A 1.2 % (0-0.5); Lymphocytes Absolute Auto 0.58 K/mm3 (0.9-3.2); Lymphocytes Percent Auto 11.8 % (18.3-44.2); Mean Corpuscular HGB Conc 32.3 g/dl (32-36); Mean Corpuscular Hemoglobin 30.6 pg (26-34); Mean Corpuscular Volume 94.9 fl (80-100); Monocytes Absolute Auto 0.6 K/mm3 (0.1-0.6); Monocytes Percent Auto 11.4 % (2.6-8.5); Neutrophils Absolute Auto 3.6 K/mm3 (1.3-6.7); Neutrophils Percent Auto 73.6 % (45.5-73.1); Platelet Count Result 241 k/mm3 (150-375); Red Blood Count 3.69 M/mm3 (4.2-5.4); Red Cell Distribution Width 14.3 % (11.5-14.5); White Blood Count 4.9 K/mm3 (4.5-10.0)
[2025-04-29 07:14] LABS: Alanine Aminotransferase 16 U/L (6-35); Alkaline Phosphatase 135 U/L (38-126); Anion Gap 7 mmol/L (4-12); Aspartate Amino Transferase 29 U/L (14-36); Bilirubin,Total 0.2 mg/dL (0.2-1.3); Blood Urea Nitrogen 7 mg/dL (7-17); Calcium 8.6 mg/dL (8.4-10.2); Carbon Dioxide 30 mmol/L (22-30); Chloride 97 mmol/L (98-107); Estimated CRCL calculation 77 ml/min; Estimated Glomerular Filt Rate > 60; Glucose 79 mg/dL (65-110); Magnesium 1.3 mg/dL (1.6-2.3); Potassium 3.5 mmol/L (3.4-5.0); Sodium 134 mmol/L (137-145); Total Protein 6.4 g/dL (6.3-8.2)
[2025-04-29 08:06] LABS: Glucose Point of Care 79 mg/dl (65-105)
[2025-04-29] MEDS: FLUTICASONE/SALMETEROL 115-21 MCG (*SP) INHALER 2 PUFF INHALATION (08:23)
[2025-04-29] MEDS: SERTRALINE HCL 25 MG TABLET PO (09:00)
[2025-04-29] MEDS: FIDAXOMICIN 200 MG TABLET PO (09:00)
[2025-04-29] MEDS: allopurinoL 300 MG TABLET PO (09:01)
[2025-04-29] MEDS: CEFDINIR 300 MG CAPSULE PO (09:01)
[2025-04-29] MEDS: MONTELUKAST SODIUM 10 MG TABLET PO (09:01)
[2025-04-29] MEDS: SACCHAROMYCES BOULARDII 250 MG CAPSULE PO ×2 (09:01→16:26)
[2025-04-29] MEDS: VITAMIN B COMPLEX CAPSULE 1 CAP PO ×2 (09:01→16:26)
[2025-04-29] MEDS: DOXYCYCLINE HYCLATE 100 MG TABLET PO (09:01)
[2025-04-29] MEDS: CHOLECALCIFEROL (VITAMIN D3) 125 MCG (5,000 UNITS) TABLET PO (09:02)
[2025-04-29] MEDS: POTASSIUM CHLORIDE 20 MEQ ER TABLET PO (09:02)
[2025-04-29] MEDS: PANTOPRAZOLE 40 MG TABLET PO (09:02)
[2025-04-29] MEDS: APIXABAN 5 MG TABLET PO ×2 (09:02→16:26)
--- NOTE | 2025-04-29 10:52 | PCNFU ---
Nutrition Follow-Up Complete: Inadequate oral intake related to swallowing difficulties as evidenced by need for puree and thickened liquids Goal:Adequate PO intake at least 75% meals and supplements Pt slowly progressing towards goal. continue with same goal Pt current nutrition is Diabetic, pureed, level 4 thick liquids. Nutrition recommendation: encourage po intake Last recorded weight is 81.7 kg. Bowel Motility: +BM 04/26 Labs Reviewed: hgb:11.3, HCT:35, Alb:3.0, Na:134, Cr:0.55 Meds Noted: eliquis, protonix, novolog Skin: WNL Additional Notes: Pt continues on a diabetic pureed diet, thickened liquids level 4. Intake 25-50%. Glucerna shakes BID in place. Encourage po intake of meals and supplements. Monitoring swallowing ability, weights, labs, intakes, output, plan of care Follow up in 5 days
[2025-04-29] MEDS: MAGNESIUM OXIDE 400 MG TABLET PO (11:15)
[2025-04-29] MEDS: CALCIUM CARBONATE (OSCAL) 500 MG TABLET PO (11:16)
[2025-04-29] MEDS: IRON SUCROSE COMPLEX 400 MG, IRON SUCROSE COMPLEX 100 MG in SODIUM CHLORIDE 0.9% IV 250 ML 78.57 MG IVPB (11:22)
[2025-04-29 11:50] LABS: Glucose Point of Care 143 mg/dl (65-105)
--- NOTE | 2025-04-29 14:55 | P.DS_ITS ---
DS: Admitting Diagnosis Discharge Date 04/29/25 Admitting Diagnosis Increased work of breathing DS: Discharge Diagnosis Discharge Diagnosis (1) Pneumonia: Qualifiers: Pneumonia type: due to unspecified organism Laterality: bilateral Lung location: lower lobe of lung Qualified Code(s): J18.9 - Pneumonia, unspecified organism Code(s): J18.9 - Pneumonia, unspecified organism Status: Acute DS: Summary Hospital Course Hospital Course: 74-year-old female with a past medical history CVA, memory loss, COPD, lung cancer status post resection and radiation therapy who presented to the ER via EMS from [facility] due to increased work of breathing. Patient was satting 85% on 2 L nasal cannula in she received it nebulizer treatment and Ventolin inhaler without improvement in symptoms. Patient was afebrile on presentation to the ER but was mildly hypotensive with blood pressures in the mid to low 90s systolic and tachypneic and tachycardic. Labs demonstrated elevated white count of 15 and a left shift with 12% bands, VBG demonstrated respiratory alkalosis and sodium was 133 which is patient's baseline. UA was suggestive of UTI with nitrates 2+ esterase 21-50 wbc's and 2+ bacteria. Chest x-ray demonstrated white in superior mediastinum with masses and postradiation changes right apical area and bibasilar opacification which could be atelectasis or pneumonia. CT chest abdomen pelvis with contrast demonstrated pneumonia versus atelectasis right upper lobe underlying mass cannot be excluded pneumonia the right and left lower lobe with Kyra vascular lymphadenopathy and incidentally found hepatomegaly, sliding hiatal hernia and constipation. However despite the CT demonstrating possible constipation after patient arrived to the intermediate unit the patient had an extremely large diarrheal bowel movement. The patient's bowel movement seems consistent with C diff. The patient does have a history of C diff approximately a year ago. It does not appear that she has been on recent antibiotic therapy at all. She states that she has been having diarrhea for a few weeks. She then stated that she may have been having diarrhea for up to fiber 6 weeks. It is unclear duration of symptoms. Managed for sepsis from Pneumonia and dsicharged on 3 more days of Cefdinir and DOxycycline. Required oxygen on admission but was later trended off oxygen. Also managed for C diff diarrhea and started Dificid, to complete 10 days of Dificid Also received 1g IV iron for iron deficiency anemia. hb today 11.3 Patient was comfortable at bedside today Discharged to SNF. F/u with PCP in 3-5 days Time Spent with Patient Time attestation: Total time spent providing and/or coordinating discharge services: DS: Data Data Completed and Pending Labs on day of discharge: Labs from last 24 hours 04/29/25 04/29/25 04/29/25 11:47 08:02 06:08 WBC 4.9 RBC 3.69 L Hgb 11.3 L Hct 35.0 L MCV 94.9 MCH 30.6 MCHC 32.3 RDW 14.3 Plt Count 241 MPV 9.0 Immature Gran % (Auto) 1.2 H Neut % (Auto) 73.6 H Lymph % (Auto) 11.8 L [place] % (Auto) 11.4 H Eos % (Auto) 1.4 Baso % (Auto) 0.6 Lymph # (Auto) 0.58 L [place] # (Auto) 0.6 Eos # (Auto) 0.1 Baso # (Auto) 0.0 Abs Immat Gran (auto) 0.06 H Absolute Neuts (auto) 3.6 Absolute Nucleated RBC 0.000 Nucleated RBC % 0.0 Sodium 134 L Potassium 3.5 Chloride 97 L Carbon Dioxide 30 Anion Gap 7 BUN 7 Creatinine 0.55 L Estim Creat Clear Calc 77 Estimated GFR > 60 Glucose 79 POC Capillary Glucose 143 H 79 Calcium 8.6 Magnesium 1.3 L Total Bilirubin 0.2 AST 29 ALT 16 Alkaline Phosphatase 135 H Total Protein 6.4 Albumin 3.0 L 04/28/25 04/28/25 19:53 16:46 WBC RBC Hgb Hct MCV MCH MCHC RDW Plt Count MPV Immature Gran % (Auto) Neut % (Auto) Lymph % (Auto) [place] % (Auto) Eos % (Auto) Baso % (Auto) Lymph # (Auto) [place] # (Auto) Eos # (Auto) Baso # (Auto) Abs Immat Gran (auto) Absolute Neuts (auto) Absolute Nucleated RBC Nucleated RBC % Sodium Potassium Chloride Carbon Dioxide Anion Gap BUN Creatinine Estim Creat Clear Calc Estimated GFR Glucose POC Capillary Glucose 109 H 101 Calcium Magnesium Total Bilirubin AST ALT Alkaline Phosphatase Total Protein Albumin Preliminary micro results at discharge 04/25/25 19:27 Blood Culture - Preliminary Blood 04/25/25 19:23 Blood Culture - Preliminary Blood Discharge Plan Discharge Attending physician on discharge: Nesha Watters Discharging Clinician: Nesha Watters Anticipated Discharge Date/Time: 04/29/25 14:50 Patient Disposition: SNF Activity: as tolerated Diet: as tolerated and regular Patient Instructions: Apixaban (By mouth) Patient Language: Kyrgyz Stand Alone Forms: General Discharge Information Follow-up/Referrals: Omega,Jacky Segura MD [Primary Care Provider] - (F/u with PCP in 3-5 days ) Discharge Medications: New doxycycline hyclate 100 mg Tablet 100 mg PO Q12HR 3 Days Qty: 6 0RF Dificid 200 mg Tablet 200 mg PO Q12HR 8 Days Qty: 16 0RF cefdinir 300 mg Capsule 300 mg PO Q12HR 3 Days Qty: 6 0RF Continued carvedilol 6.25 mg tablet 6.25 mg PO Q12H Rx Instructions: must administer with a meal/food calcium carbonate [Calcium 600] 600 mg calcium (1,500 mg) tablet 600 mg PO DAILY metformin 500 mg tablet 500 mg PO BID omeprazole 40 mg capsule,delayed release(DR/EC) 40 mg PO DAILY baclofen 10 mg tablet 10 mg PO TID PRN (Reason: Hiccups) vitamin B complex Capsule 1 cap PO BID Eliquis 5 mg Tablet 5 mg PO BID allopurinol 100 mg tablet 300 mg PO DAILY Patient Comments: new prescription lisinopril-hydrochlorothiazide 20-12.5 mg tablet 1 tablet PO HS montelukast 10 mg tablet 10 mg PO DAILY acetaminophen 500 mg Tablet 500 mg PO Q6H PRN (Reason: Pain (Scale Score 1-3)) albuterol sulfate [Ventolin HFA] 90 mcg/actuation HFA aerosol inhaler 2 puff INHALATION Q6H PRN (Reason: Shortness Of Breath Or Wheezing) fluticasone propion-salmeterol [Advair Diskus] 250-50 mcg/dose blister with device 1 inh inhalation Q12H docusate sodium [Colace] 100 mg capsule 100 mg PO BID magnesium oxide 400 mg magnesium tablet 400 mg PO DAILY potassium chloride [K-Tab] 20 mEq tablet extended release 20 meq PO DAILY Saccharomyces boulardii [Daily Probiotic (S. boulardii)] 250 mg capsule 250 mg PO BID sertraline [Zoloft] 25 mg tablet 25 mg PO DAILY cholecalciferol (vitamin D3) 125 mcg (5,000 unit) tablet 125 mcg PO DAILY atorvastatin 10 mg Tablet 10 mg PO DAILY Qty: 30 0RF Date of admission: 04/25/25 22:15 Primary Care Provider: Omega,Jacky Segura Admitting Provider: Nicole Porras Attending physician on admission: Nicole Porras Condition: Serious
--- NOTE | 2025-04-29 17:16 | PC.NURSE ---
On 04/29/25, the WELL TREATMENT OFFSIDER, Tanna Daniels, provided care and completed DGSE documentation on this patient. I have reviewed the WELL TREATMENT OFFSIDER's documentation and agree with the findings.
[2025-04-29 17:28] LABS: Legionella pneumophila Ag Ur. NOT DETECTED
[2025-04-29 18:24] LABS: Mycoplasma IgM Antibody Titer. 342 U/mL
== END 2025-04-29 17:16 | DRG 871 ==
LOC: ANHED 20:16 → ANHIMU 22:16 → ANH3MEDSUR 04-27 16:17 → ANHIMU 04-30 14:12
PROVIDERS: Emergency Medicine; General Practice; Admitting Provider Internal Medicine; Emergency Provider Emergency Medicine; PCP Internal Medicine; Visit Provider Internal Medicine
DX: A41.9 Sepsis, unspecified organism (principal); J18.9 Pneumonia, unspecified organism; J96.01 Acute respiratory failure with hypoxia; J44.0 Chronic obstructive pulmonary disease with (acute) lower respiratory infection; A04.72 Enterocolitis due to Clostridium difficile, not specified as recurrent; E11.42 Type 2 diabetes mellitus with diabetic polyneuropathy; E78.00 Pure hypercholesterolemia, unspecified; E66.9 Obesity, unspecified; G47.30 Sleep apnea, unspecified; E83.42 Hypomagnesemia; D64.9 Anemia, unspecified; M17.12 Unilateral primary osteoarthritis, left knee; Z96.651 Presence of right artificial knee joint; Z20.822 Contact with and (suspected) exposure to COVID-19; Z86.711 Personal history of pulmonary embolism; Z86.718 Personal history of other venous thrombosis and embolism; Z79.01 Long term (current) use of anticoagulants; Z87.891 Personal history of nicotine dependence; Z86.73 Personal history of transient ischemic attack (TIA), and cerebral infarction without residual deficits; Z85.118 Personal history of other malignant neoplasm of bronchus and lung; Z85.89 Personal history of malignant neoplasm of other organs and systems; Z90.49 Acquired absence of other specified parts of digestive tract; Z90.710 Acquired absence of both cervix and uterus; Z68.30 Body mass index [BMI] 30.0-30.9, adult; Z22.322 Carrier or suspected carrier of Methicillin resistant Staphylococcus aureus
CPT/HCPCS: 36415; 70450; 71045; 71260; 74177; 74230; 80048; 80053; 80202; 81001; 82728; 82803; 82948; 83540; 83550; 83605; 83690; 83735; 84145; 84443; 84484; 85025; 85027; 85610; 85730; 86738; 87040; 87086; 87449; 87493; 87637; 87641; 87899; 92526; 92611; 93005; 94640; 96365; 96366; 96367; 96368; 96375; 99285; A9270; J0692; J1756; J3370; J3475; J7030; J7040; J7050; J7120; Q9967